=== PATIENT | male | born 1950 | race Caucasian/White ===

== ENCOUNTER 2016-12-20 14:41 | Emergency (ER) | payer MEDICARE, OTHER ==
[2016-12-20 14:47] VITALS: RESP 20
--- NOTE | 2016-12-20 15:08 | ED ---
General Adult HPI - General Chief complaint: Extremity Injury, Lower Stated complaint: Fall/Foot Pain Time Seen by Provider: 12/20/16 14:45 Source: patient, RN notes reviewed Mode of arrival: wheelchair Limitations: no limitations - History of Present Illness Initial comments: 66-year-old male presents emergency Department chief complaint of right ankle pain. Patient states she is walking down the steps and he twisted his ankle. Patient states it hurts is unable to walk on it due to the pain. Patient denies any pain. Patient states he did not hit his head. Patient states it was a simple slip and fall. Patient states she is not currently having any other symptoms. Patient denies any recent fever, chills, shortness of breath, chest pain, back pain, abdominal pain, nausea vomiting, numbness or tingling, dysuria or hematuria, constipation or diarrhea, headaches or visual changes, or any other current symptoms. - Related Data Previous Rx's Medication Instructions Recorded Hydrocodone/Acetaminophen [Reva 1 each PO Q6HR PRN #20 tab 12/20/16 5-325] Allergies Allergy/AdvReac Type Severity Reaction Status Date / Time No Known Allergies Allergy Verified 12/20/16 14:47 Review of Systems ROS Statement: Those systems with pertinent positive or pertinent negative responses have been documented in the HPI. ROS Other: All systems not noted in ROS Statement are negative. Past Medical History Past Medical History: No Reported History Additional Past Medical History / Comment(s): DENIES ANY MEDICAL PROBLEMS History of Any Multi-Drug Resistant Organisms: None Reported Past Surgical History: No Surgical Hx Reported Past Anesthesia/Blood Transfusion Reactions: No Reported Reaction Past Psychological History: No Psychological Hx Reported Smoking Status: Current every day smoker Past Alcohol Use History: Occasional Past Drug Use History: None Reported - Past Family History Father History Unknown: Yes Mother History Unknown: Yes General Exam - General Exam Comments Initial Comments: General: The patient is awake and alert, in no distress, and does not appear acutely ill. Neck: The neck is supple, there is no tenderness. Cardiovascular: There is a regular rate and rhythm. No murmur, rub or gallop is appreciated. Respiratory: Lungs are clear to auscultation, respirations are non-labored, breath sounds are equal. No wheezes, stridor, rales, or rhonchi. Musculoskeletal: Sensation intact with 2+ pulses.reduction. Frontal motion of right knee and right ankle. Patient states he has been on the lateral aspect right ankle. No proximal tib-fib tenderness. Some swelling noted. No tenderness at the right foot. Neurological: CN II-XII intact, There are no obvious motor or sensory deficits. Coordination appears grossly intact. Speech is normal. Skin: Skin is warm and dry and no rashes or lesions are noted. Psychiatric: Normal mood and affect. Limitations: no limitations Course Vital Signs 12/20/16 14:44 Temperature 98.2 F Pulse Rate 99 Respiratory 20 Rate Blood Pressure 129/76 O2 Sat by Pulse 98 Oximetry Procedures - Orthopedic Splinting/Casting Injury #1 Side: right Lower Extremity Injury Location: ankle Lower Extremity Immobilizer: stirrup splint (short leg) Medical Decision Making - Medical Decision Making 66-year-old male presents emergency chief complaint of right ankle pain. This and x-rays have been reviewed. Patient does appear to have a fracture. This and is placed in a splint and given follow-up to orthopedic. We discussed return parameters. We discussed follow-up with discussed all the patient's questions. They state Barney management plan. This and will be discharged home. - Radiology Data Radiology results: report reviewed, image reviewed Disposition Clinical Impression: Closed right ankle fracture Disposition: HOME SELF-CARE Condition: Stable Instructions: Ankle Fracture (ED) Additional Instructions: Please use medication as discussed. Please follow up with family doctor if symptoms have not improved over the next two days. Please return to the emergency room if your symptoms increase or worsen or for any other concerns. Prescriptions: Hydrocodone/Acetaminophen [Reva 5-325] 1 each PO Q6HR PRN #20 tab PRN Reason: Pain Referrals: Thony Singer MD [Primary Care Provider] - 1-2 days Candace Miranda DO [Doctor of Osteopathic Medicine] - 1-2 days Time of Disposition: 15:52
--- NOTE | 2016-12-20 15:46 | XR ---
EXAMINATION TYPE: XR ankle complete RT DATE OF EXAM: 12/20/2016 CLINICAL HISTORY: Right ankle pain after twisting type injury. TECHNIQUE: Frontal, lateral and oblique images of the right ankle and foot are obtained. COMPARISON: 01/12/2016 FINDINGS: There is no acute dislocation evident in the right ankle. Tiny chip fracture fragment is seen inferolaterally from the distal fibula. The ankle mortise appears within normal limits. The ove rlying soft tissue appears unremarkable. Achilles enthesophyte is noted in The joint spaces in the right ankle are preserved. Overlying soft tissue swelling is present. IMPRESSION: Tiny chip fracture of the distal fibula with overlying soft tissue swelling and soft tiss ue swelling about the ankle joint.
[2016-12-20] MEDS ORDERED: HYDROcodone/APAP 5-325MG 1 EACH TAB PO STA (15:47)
[2016-12-20 16:03] VITALS: BP 132/86; PULSE 88; TEMP 97.5
== END 2016-12-20 16:03 | disposition home or self-care (01) ==
LOC: EC 14:41
DX: S82.891A Other fracture of right lower leg, initial encounter for closed fracture (principal); F17.200 Nicotine dependence, unspecified, uncomplicated; X50.1XXA Overexertion from prolonged static or awkward postures, initial encounter; W01.0XXA Fall on same level from slipping, tripping and stumbling without subsequent striking against object, initial encounter
CPT/HCPCS: 29515; 99283

== ENCOUNTER → 2017-03-19 | Outpatient (CLI) | payer MEDICARE, OTHER ==
--- NOTE | 2017-03-19 09:56 | US ---
EXAMINATION TYPE: US prostate transrectal DATE OF EXAM: 03/19/2017 COMPARISON: NONE CLINICAL HISTORY: R97.2 Elevated PSA. Elevated PSA This examination was performed using the transrectal probe. EXAM MEASUREMENTS: Gland Size: 4.5 x 2.1 x 4.1cm Volume: 19.4 ml Predicted PSA: 2.33 Actual PSA (if available):5.81 Heterogeneous gland containing central zone calcifications and peripheral nodularity. IMPRESSION: Peripherally nodular and heterogenous nonenlarged prostate gland containing central zone calcifications. No discrete hypoechoic mass.
== END | disposition home or self-care (01) ==
LOC: RADUSMAIN 07:55
PROVIDERS: ATTEND Internal Medicine
DX: N42.89 Other specified disorders of prostate (principal)
CPT/HCPCS: 76872

== ENCOUNTER 2017-09-03 09:12 | Inpatient (IN) | payer MEDICARE, OTHER ==
[2017-09-03] MEDS ORDERED: LORazepam 2 MG/ML INJ IV STA ×2 (09:48→11:27)
[2017-09-03] MEDS ORDERED: THIAMINE 100 MG/ML 2 ML VIAL IVP STA (09:51)
[2017-09-03] MEDS ORDERED: FOLIC ACID 5 MG/ML 10 ML VIAL IM STA (09:51)
[2017-09-03] MEDS ORDERED: SODIUM CHLORIDE 0.9% 500 ML IV ONE (09:51)
[2017-09-03] MEDS ORDERED: SODIUM CHLORIDE 0.9% 1,000 ML IV ONE (09:51)
[2017-09-03 10:04] LABS: Glucose,Whole Blood 134 mg/dL (75-99)
[2017-09-03 10:32] LABS: Appearance,Urine Cloudy (Clear); Bacteria,Urine Occasional /hpf; Bilirubin,Urine Negative (Negative); Blood,Urine Small (Negative); Color,Urine Yellow; Glucose,Urine (UA) Negative (Negative); Granular Casts,Urine 4 /lpf (0); Hyaline Casts,Urine 29 /lpf (0-2); Ketones,Urine 1+ (Negative); Leukocyte Esterase,Urine Moderate (Negative); Mucus,Urine Rare /hpf; Nitrite,Urine Positive (Negative); Protein,Urine 2+ (Negative); RBC,Urine 6 /hpf (0-5); Specific Gravity,Urine 1.014 (1.001-1.035); Urobilinogen,Urine <2.0 mg/dL (<2.0); WBC,Urine 19 /hpf (0-5)
[2017-09-03 10:34] LABS: Alcohol 13 mg/dL; Amphetamine Screen,Urine Not Detected (NotDetected); Barbiturate Screen,Urine Not Detected (NotDetected); Benzodiazepines Screen,Urine Not Detected (NotDetected); Cocaine Screen,Urine Not Detected (NotDetected); Methadone Screen, Urine Not Detected (NotDetected); Opiate Screen,Urine Not Detected (NotDetected); Oxycodone Screen, Urine Not Detected (NotDetected); Phencyclidine Screen,Urine Not Detected (NotDetected); Tricyclic Antidepressant,Urine Not Detected (NotDetected); Urn Cannabinoid Scrn Not Detected (NotDetected)
[2017-09-03 10:46] LABS: Prothrombin Time 10.2 sec (9.0-12.0)
[2017-09-03] MEDS ORDERED: RX INFO: IV CONTRAST WAS GIVEN 1 EACH MISC MISCELLANE PRN (10:46)
--- NOTE | 2017-09-03 10:46 | CT ---
EXAMINATION TYPE: CT brain wo con DATE OF EXAM: 09/03/2017 COMPARISON: NONE HISTORY: Altered mental status CT DLP: 1098.80 mGycm Automated exposure control for dose reduction was used. FINDINGS: There is a focal wedge-shaped area of hypoattenuation involving the posterior right temporal lobe and parietal lobe. This involves both greenwood-white matter and there is slight mass effect upon the involve d gyri and sulci without volume loss, therefore findings favor acute to subacute infarct. There is no midline shift. Remainder the greenwood-white junction is unremarkable. No evidence of intracranial hemorr jose juan. Insular cortexes are preserved. Basal ganglia are well-defined. There is symmetric prominence o f the peripheral sulci and ventricular system compatible with mild age-related volume loss. Globes ap pear intact, lenses are in place and orbits are symmetric. Calvarium is intact. There is complete opa cification of the right maxillary sinus and scant mucosal thickening within the right frontal and rig ht ethmoid sinuses as well as the right sphenoid sinus. Remainder the paranasal sinuses and mastoid a ir cells are well aerated. Trace amount of cerumen is seen within the left external auditory canal. A therosclerosis is noted of the intracranial vasculature. IMPRESSION: 1. FINDINGS REPRESENTING ACUTE TO SUBACUTE INFARCT WITHIN THE RIGHT POSTERIOR TEMPORAL AND PARIETAL L OBES IN THE DISTRIBUTION OF A BRANCH VESSEL OF THE RIGHT MCA. NO EVIDENCE OF HEMORRHAGIC TRANSFORMATI ON OR ACUTE INTRACRANIAL HEMORRHAGE. MR COULD FURTHER CLARIFY STAGE OF ACUITY. IF CLINICALLY INDICATED WITH THE ORDERING ER PHYSICIAN DR HAYNES AT 10:44 AM ON 09/03/[address] DOVE. 2. COMPLETE OPACIFICATION OF THE RIGHT MAXILLARY SINUS AND OVERALL MODERATE PARANASAL SINUS DISEASE.
[2017-09-03 10:47] LABS: ALT 40 U/L (21-72); AST 64 U/L (17-59); Albumin 4.6 g/dL (3.5-5.0); Alkaline Phosphatase 56 U/L (38-126); Anion Gap 23 mmol/L; Blood Urea Nitrogen 10 mg/dL (9-20); Calcium 9.2 mg/dL (8.4-10.2); Carbon Dioxide 21 mmol/L (22-30); Chloride 103 mmol/L (98-107); Glucose 123 mg/dL (74-99); Magnesium 1.5 mg/dL (1.6-2.3); Partial Thromboplastin Time 18.6 sec (22.0-30.0); Phosphorus 3.8 mg/dL (2.5-4.5); Sodium 147 mmol/L (137-145); Total Bilirubin 0.8 mg/dL (0.2-1.3); Total Protein 7.9 g/dL (6.3-8.2)
[2017-09-03] MEDS ORDERED: levETIRAcetam IV 1,000 MG in SALINE 1 100ML.BAG IVPB STA (10:48)
[2017-09-03 10:49] LABS: Potassium 4.8 mmol/L (3.5-5.1)
[2017-09-03 10:59] LABS: Creatine Kinase MB 1.1 ng/mL (0.0-2.4); Troponin I 0.015 ng/mL (0.000-0.034)
[2017-09-03] MEDS ORDERED: cefTRIAXone IN SWFI 1,000 MG/10 ML SYRINGE IVP STA (11:13)
--- NOTE | 2017-09-03 11:29 | ED ---
Altered Mental Status HPI - General Chief Complaint: Altered Mental Status Stated Complaint: Altered mental status Time Seen by Provider: 09/03/17 09:31 Source: patient Mode of arrival: EMS Limitations: no limitations, altered mental status - History of Present Illness Initial Comments: This 67-year-old white male presents with mental status changes via EMS. He barely was walking when he relates that he felt very shaky and collapsed to the ground. He apparently was very confused. This apparently occurred while he was with his significant other but there is no one in the ER to further substantiate the story. It is unsure as to whether or not he had a seizure. He was more confused initially when he came into the ER but later was able to give some history. He related that he drinks daily but took his last drink yesterday as he is trying to stop drinking alcohol. While obtaining history he has another seizure in the ER and is further postictal and unable to answer any degree of questions. History is somewhat limited due to patient's current mental status. His son later does show up and relates that the patient does drink very heavily. He states that he is unsure how much she drinks daily but will essentially drinking as much is possibly available. He has been doing this his entire life. He states that the patient's girlfriend was with him when he had the event. They apparently were walking to the store when he is guarded shaking significantly and was confused - what sounds like a seizure. The son relates that he has never had any known seizures previously. She is not aware of him going through any alcohol withdrawal or alcohol withdrawal events. Son relates that the patient's 2 brothers and other son apparently had passed recently so he has been drinking heavily. - Related Data Home Medications Medication Instructions Recorded Confirmed Hydrocodone/Acetaminophen [[place] 1 tab PO Q6HR PRN 09/03/17 09/03/17 5-325] Allergies Allergy/AdvReac Type Severity Reaction Status Date / Time No Known Allergies Allergy Verified 09/03/17 11:02 Review of Systems ROS Statement: Those systems with pertinent positive or pertinent negative responses have been documented in the HPI. ROS Other: All systems not noted in ROS Statement are negative. Past Medical History Past Medical History: No Reported History, Unable to Obtain Additional Past Medical History / Comment(s): DENIES ANY MEDICAL PROBLEMS History of Any Multi-Drug Resistant Organisms: None Reported Past Surgical History: No Surgical Hx Reported, Unable to Obtain Past Anesthesia/Blood Transfusion Reactions: No Reported Reaction Past Psychological History: No Psychological Hx Reported Smoking Status: Current every day smoker Past Alcohol Use History: Occasional Past Drug Use History: None Reported - Past Family History Father History Unknown: Yes Mother History Unknown: Yes General Exam - General Exam Comments Initial Comments: GENERAL: The patient is well nourished and well hydrated. VITAL SIGNS: Heart rate, blood pressure, respiratory rate reviewed as recorded in nurse's notes. EYES: Pupils are round and reactive. Extraocular movements are intact. No conjunctival / lid redness or swelling. ENT: No external evidence of injury, swelling, or ecchymosis. Airway is patent. Throat is clear. NECK: Nontender. No swelling or evidence of injury. No subcutaneous emphysema. Trachea is midline. No thyroid mass. HEART: Regular rate and rhythm. Good peripheral pulses. LUNGS/CHEST: Breath sounds clear and equal bilaterally. No rales, rhonchi, or wheezes. No ecchymosis, subcutaneous emphysema, or tenderness. ABDOMEN: Abdomen soft without tenderness. No palpable masses or organomegaly. No peritoneal signs. No abdominal wall swelling or ecchymosis. EXTREMITIES: No extremity tenderness. Normal muscle tone and function. No thoracolumbar tenderness. NEUROLOGIC: Sensation is grossly intact. Cranial nerve exam reveals face is symmetrical, tongue is midline, speech is clear. Patient is slow to respond but does answer some questions. SKIN: No abrasions or ecchymosis is noted. No induration or masses noted. PSYCHIATRIC: Patient is slow to respond and has a seizure shortly after arrival and is postictal afterwards so psychiatric examination is difficult to assess. Limitations: no limitations, altered mental status Course Vital Signs 09/03/17 09/03/17 09/03/17 09:14 09:51 11:09 Temperature 97.7 F Pulse Rate 74 90 81 Respiratory 18 18 18 Rate Blood Pressure 124/73 184/81 165/80 O2 Sat by Pulse 93 L 94 L 96 Oximetry 09/03/17 12:01 Temperature Pulse Rate 76 Respiratory 18 Rate Blood Pressure 177/89 O2 Sat by Pulse 97 Oximetry Medical Decision Making - Medical Decision Making The patient was seen and examined. All diagnostics were reviewed. An IV is established and he is placed on the quality assurance monitor. He has an EKG done which shows a normal sinus rhythm with occasional PVC. There is no acute ST-T wave changes identified. The ME intervals 138, QRS duration is 104, and the QTC intervals 449. The laboratory is reviewed. The case is discussed with the radiologist and they note that he has findings on his computed tomography scan of the brain which represent a subacute to acute right posterior temporal and parietal lobe infarct. This is in the distribution of a branch vessel of the right MCA. There is no hemorrhagic transformation. They also noted complete opacification of the right maxillary sinus and overall moderate paranasal sinus disease. His ammonia level is quite high. While examining the patient, he has an approximately two-minute generalized tonic clonic seizure and seems quite postictal afterwards. The seizure does stop with 2 mg of Ativan intravenously. He also was incontinent of urine. A straight catheterization was done and this does show evidence of urinary tract infection. He receives 1 g Rocephin intravenously. Due to his seizure being either related to alcohol withdrawal versus related to a CVA, he is started on Keppra intravenously as well. A CT a of the head and neck is ordered. It is quite difficult to perform any degree of stroke scale examination on him due to his altered mental status. Nevertheless, initially he is moving all extremities without any difficulty. He certainly had strength intact in his quite vigorous tonic-clonic seizures. His speech was clear earlier. The patient had the CT a of the head and neck. There is some motion artifact in the neck region but it otherwise did not show any focal occlusion. The previously noted possible stroke findings on the noncontrasted computed tomography scan of the brain are less well appreciated on this examination. It is felt as though patient's current symptomatology is very consistent with an alcohol withdrawal seizure. His alcohol level is only 13 at this time. It is also felt as though he has some hyperammonia anemia which certainly could be causing some degree of mental status changes. It is felt as though he would benefit from admission to the hospital for further treatment and neurology consultation. Case will be discussed with internal medicine shortly. - Lab Data Result diagrams: 09/03/17 11:10 09/03/17 09:50 Lab Results 09/03/17 09/03/17 09/03/17 Range/Units 09:50 09:50 09:50 WBC (3.8-10.6) k/uL RBC (4.30-5.90) m/uL Hgb (13.0-17.5) gm/dL Hct (39.0-53.0) % MCV (80.0-100.0) fL MCH (25.0-35.0) pg MCHC (31.0-37.0) g/dL RDW (11.5-15.5) % Plt Count (150-450) k/uL Neutrophils % % Lymphocytes % % Monocytes % % Eosinophils % % Basophils % % Neutrophils # (1.3-7.7) k/uL Lymphocytes # (1.0-4.8) k/uL Monocytes # (0-1.0) k/uL Eosinophils # (0-0.7) k/uL Basophils # (0-0.2) k/uL PT (9.0-12.0) sec INR (<1.2) APTT (22.0-30.0) sec Sodium 147 H (137-145) mmol/L Potassium 4.8 (3.5-5.1) mmol/L Chloride 103 (98-107) mmol/L Carbon Dioxide 21 L (22-30) mmol/L Anion Gap 23 mmol/L BUN 10 (9-20) mg/dL Creatinine 0.77 (0.66-1.25) mg/dL Est GFR (CKD-EPI)AfAm >90 (>60 ml/min/1.73 sqM) Est GFR (CKD-EPI)NonAf >90 (>60 ml/min/1.73 sqM) Glucose 123 H (74-99) mg/dL POC Glucose (mg/dL) (75-99) mg/dL POC Glu Lawn Care Specialist ID Calcium 9.2 (8.4-10.2) mg/dL Phosphorus 3.8 (2.5-4.5) mg/dL Magnesium 1.5 L (1.6-2.3) mg/dL Total Bilirubin 0.8 (0.2-1.3) mg/dL AST 64 H (17-59) U/L ALT 40 (21-72) U/L Alkaline Phosphatase 56 (38-126) U/L Ammonia (<30) umol/L Total Creatine Kinase 88 (55-170) U/L CK-MB (CK-2) 1.1 (0.0-2.4) ng/mL CK-MB (CK-2) Rel Index 1.3 Troponin I 0.015 (0.000-0.034) ng/mL Total Protein 7.9 (6.3-8.2) g/dL Albumin 4.6 (3.5-5.0) g/dL Urine Color Yellow Urine Appearance Cloudy (Clear) Urine pH 6.0 (5.0-8.0) Ur Specific Flora 1.014 (1.001-1.035) Urine Protein 2+ H (Negative) Urine Glucose (UA) Negative (Negative) Urine Ketones 1+ H (Negative) Urine Blood Small H (Negative) Urine Nitrite Positive (Negative) Urine Bilirubin Negative (Negative) Urine Urobilinogen <2.0 (<2.0) mg/dL Ur Leukocyte Esterase Moderate H (Negative) Urine RBC 6 H (0-5) /hpf Urine WBC 19 H (0-5) /hpf Urine Bacteria Occasional H (None) /hpf Hyaline Casts 29 H (0-2) /lpf Granular Casts 4 (0) /lpf Urine Mucus Rare H (None) /hpf Urine Opiates Screen Not Detected (NotDetected) Ur Oxycodone Screen Not Detected (NotDetected) Urine Methadone Screen Not Detected (NotDetected) Ur Propoxyphene Screen Not Detected (NotDetected) Ur Barbiturates Screen Not Detected (NotDetected) U Tricyclic Antidepress Not Detected (NotDetected) Ur Phencyclidine Scrn Not Detected (NotDetected) Ur Amphetamines Screen Not Detected (NotDetected) U Methamphetamines Scrn Not Detected (NotDetected) U Benzodiazepines Scrn Not Detected (NotDetected) Urine Cocaine Screen Not Detected (NotDetected) U Marijuana (THC) Screen Not Detected (NotDetected) Serum Alcohol 13 mg/dL 09/03/17 09/03/17 09/03/17 Range/Units 09:50 09:50 09:59 WBC (3.8-10.6) k/uL RBC (4.30-5.90) m/uL Hgb (13.0-17.5) gm/dL Hct (39.0-53.0) % MCV (80.0-100.0) fL MCH (25.0-35.0) pg MCHC (31.0-37.0) g/dL RDW (11.5-15.5) % Plt Count (150-450) k/uL Neutrophils % % Lymphocytes % % Monocytes % % Eosinophils % % Basophils % % Neutrophils # (1.3-7.7) k/uL Lymphocytes # (1.0-4.8) k/uL Monocytes # (0-1.0) k/uL Eosinophils # (0-0.7) k/uL Basophils # (0-0.2) k/uL PT 10.2 (9.0-12.0) sec INR 1.0 (<1.2) APTT 18.6 L (22.0-30.0) sec Sodium (137-145) mmol/L Potassium (3.5-5.1) mmol/L Chloride (98-107) mmol/L Carbon Dioxide (22-30) mmol/L Anion Gap mmol/L BUN (9-20) mg/dL Creatinine (0.66-1.25) mg/dL Est GFR (CKD-EPI)AfAm (>60 ml/min/1.73 sqM) Est GFR (CKD-EPI)NonAf (>60 ml/min/1.73 sqM) Glucose (74-99) mg/dL POC Glucose (mg/dL) 134 H (75-99) mg/dL POC Glu Lawn Care Specialist ID Alejandro Reed Calcium (8.4-10.2) mg/dL Phosphorus (2.5-4.5) mg/dL Magnesium (1.6-2.3) mg/dL Total Bilirubin (0.2-1.3) mg/dL AST (17-59) U/L ALT (21-72) U/L Alkaline Phosphatase (38-126) U/L Ammonia 59 H (<30) umol/L Total Creatine Kinase (55-170) U/L CK-MB (CK-2) (0.0-2.4) ng/mL CK-MB (CK-2) Rel Index Troponin I (0.000-0.034) ng/mL Total Protein (6.3-8.2) g/dL Albumin (3.5-5.0) g/dL Urine Color Urine Appearance (Clear) Urine pH (5.0-8.0) Ur Specific Flora (1.001-1.035) Urine Protein (Negative) Urine Glucose (UA) (Negative) Urine Ketones (Negative) Urine Blood (Negative) Urine Nitrite (Negative) Urine Bilirubin (Negative) Urine Urobilinogen (<2.0) mg/dL Ur Leukocyte Esterase (Negative) Urine RBC (0-5) /hpf Urine WBC (0-5) /hpf Urine Bacteria (None) /hpf Hyaline Casts (0-2) /lpf Granular Casts (0) /lpf Urine Mucus (None) /hpf Urine Opiates Screen (NotDetected) Ur Oxycodone Screen (NotDetected) Urine Methadone Screen (NotDetected) Ur Propoxyphene Screen (NotDetected) Ur Barbiturates Screen (NotDetected) U Tricyclic Antidepress (NotDetected) Ur Phencyclidine Scrn (NotDetected) Ur Amphetamines Screen (NotDetected) U Methamphetamines Scrn (NotDetected) U Benzodiazepines Scrn (NotDetected) Urine Cocaine Screen (NotDetected) U Marijuana (THC) Screen (NotDetected) Serum Alcohol mg/dL 09/03/17 Range/Units 11:10 WBC 12.6 H (3.8-10.6) k/uL RBC 4.42 (4.30-5.90) m/uL Hgb 13.6 (13.0-17.5) gm/dL Hct 41.0 (39.0-53.0) % MCV 92.6 (80.0-100.0) fL MCH 30.9 (25.0-35.0) pg MCHC 33.3 (31.0-37.0) g/dL RDW 13.7 (11.5-15.5) % Plt Count 221 (150-450) k/uL Neutrophils % 93 % Lymphocytes % 3 % Monocytes % 4 % Eosinophils % 0 % Basophils % 0 % Neutrophils # 11.6 H (1.3-7.7) k/uL Lymphocytes # 0.4 L (1.0-4.8) k/uL Monocytes # 0.4 (0-1.0) k/uL Eosinophils # 0.0 (0-0.7) k/uL Basophils # 0.0 (0-0.2) k/uL PT (9.0-12.0) sec INR (<1.2) APTT (22.0-30.0) sec Sodium (137-145) mmol/L Potassium (3.5-5.1) mmol/L Chloride (98-107) mmol/L Carbon Dioxide (22-30) mmol/L Anion Gap mmol/L BUN (9-20) mg/dL Creatinine (0.66-1.25) mg/dL Est GFR (CKD-EPI)AfAm (>60 ml/min/1.73 sqM) Est GFR (CKD-EPI)NonAf (>60 ml/min/1.73 sqM) Glucose (74-99) mg/dL POC Glucose (mg/dL) (75-99) mg/dL POC Glu Lawn Care Specialist ID Calcium (8.4-10.2) mg/dL Phosphorus (2.5-4.5) mg/dL Magnesium (1.6-2.3) mg/dL Total Bilirubin (0.2-1.3) mg/dL AST (17-59) U/L ALT (21-72) U/L Alkaline Phosphatase (38-126) U/L Ammonia (<30) umol/L Total Creatine Kinase (55-170) U/L CK-MB (CK-2) (0.0-2.4) ng/mL CK-MB (CK-2) Rel Index Troponin I (0.000-0.034) ng/mL Total Protein (6.3-8.2) g/dL Albumin (3.5-5.0) g/dL Urine Color Urine Appearance (Clear) Urine pH (5.0-8.0) Ur Specific Flora (1.001-1.035) Urine Protein (Negative) Urine Glucose (UA) (Negative) Urine Ketones (Negative) Urine Blood (Negative) Urine Nitrite (Negative) Urine Bilirubin (Negative) Urine Urobilinogen (<2.0) mg/dL Ur Leukocyte Esterase (Negative) Urine RBC (0-5) /hpf Urine WBC (0-5) /hpf Urine Bacteria (None) /hpf Hyaline Casts (0-2) /lpf Granular Casts (0) /lpf Urine Mucus (None) /hpf Urine Opiates Screen (NotDetected) Ur Oxycodone Screen (NotDetected) Urine Methadone Screen (NotDetected) Ur Propoxyphene Screen (NotDetected) Ur Barbiturates Screen (NotDetected) U Tricyclic Antidepress (NotDetected) Ur Phencyclidine Scrn (NotDetected) Ur Amphetamines Screen (NotDetected) U Methamphetamines Scrn (NotDetected) U Benzodiazepines Scrn (NotDetected) Urine Cocaine Screen (NotDetected) U Marijuana (THC) Screen (NotDetected) Serum Alcohol mg/dL Disposition Clinical Impression: Altered mental status, Hepatic encephalopathy, Alcohol withdrawal, Delirium tremens, Seizure, Hypertension, Hyperammonemia, Alcohol abuse, Urinary tract infection Disposition: ADMITTED IP TO THIS [facility] Condition: Fair Time of Disposition: 13:00 Decision Date: 09/03/17 Decision Time: 13:00
--- NOTE | 2017-09-03 12:05 | XR ---
EXAMINATION TYPE: XR chest 1V DATE OF EXAM: 09/03/2017 HISTORY: Shortness of breath. COMPARISON: 05/02/2015 TECHNIQUE: Single view of the chest is submitted. FINDINGS: Demonstrated are scattered senescent parenchymal change. There is no evidence for focal infiltrate. The heart is stable. Pulmonary venous engorgement without overt failure. Hilar and mediastinal structures are within normal limits. Degenerative changes are seen of the dorsal spine. Chronic left-sided rib deformities noted. IMPRESSION: 1. Chronic changes without evidence for acute pulmonary disease.
[2017-09-03 12:15] LABS: Basophils % (A) 0 %; Eosinophils % (A) 0 %; HGB 13.6 gm/dL (13.0-17.5); Lymphocytes # (A) 0.4 k/uL (1.0-4.8); Lymphocytes % (A) 3 %; MCH 30.9 pg (25.0-35.0); MCHC 33.3 g/dL (31.0-37.0); MCV 92.6 fL (80.0-100.0); Mean Platelet Volume 7.3; Monocytes # (A) 0.4 k/uL (0-1.0); Monocytes % (A) 4 %; Neutrophils # (A) 11.6 k/uL (1.3-7.7); Neutrophils % (A) 93 %; Platelet Count 221 k/uL (150-450); RBC 4.42 m/uL (4.30-5.90); RDW 13.7 % (11.5-15.5); WBC 12.6 k/uL (3.8-10.6)
--- NOTE | 2017-09-03 12:33 | CT ---
EXAMINATION TYPE: CT angio head neck DATE OF EXAM: 09/03/2017 HISTORY: altered mental status COMPARISON: CT brain dictation of the same date. CT DLP: 508 mGycm. Automated Exposure Control for Dose Reduction was Utilized. TECHNIQUE: CTA scan of the neck is performed with IV Contrast, patient injected with 65 mL of Isovue 370, axial images are obtained, coronal and sagittal reformatted images are reviewed. Three-D recons tructed images are created on an independent workstation and reviewed. FINDINGS: Carotid/Vascular Structures: There is nonhemodynamically significant stenosis of the left subclavian proximally. Scant amount of atherosclerosis is also seen within the common carotid arteries with no h emodynamically significant stenosis. Approximately 50% stenosis is seen at the left common carotid ar dago. Degree of stenosis of the right common carotid artery is nondiagnostic due to extensive patient motion. Level of the upper cervical spine vasculature is also nondiagnostic due to extensive patient motion. Vertebral arteries are diminutive but codominant. Posterior cerebellar arteries are also diminutive b ut patent. [place] appears patent and intact. No arterial venous malformation. Visualized po rtions of the brain parenchyma are discussed on the CT abdomen dictation the same day including paran magnolia sinus disease. IMPRESSION: Upper cervical spine level is nondiagnostic secondary to extensive patient motion. Other mijares, no hemodynamically significant stenosis or focal occlusion of the remainder of the head or neck . Findings of right-sided temporal parietal hypoattenuation of the greenwood-white matter junction favorin g acute to subacute infarct are less well appreciated on this examination given technique.
[2017-09-03] MEDS ORDERED: ACETAMINOPHEN TAB 325 MG TAB PO PRN (13:01)
[2017-09-03] MEDS ORDERED: ONDANSETRON 4 MG/2 ML VIAL IVP PRN (13:01)
[2017-09-03] MEDS ORDERED: NALOXONE 0.4 MG/ML 1 ML VIAL IV PRN (13:01)
[2017-09-03] MEDS ORDERED: THIAMINE 100 MG/ML 2 ML VIAL IM STA (13:07)
[2017-09-03] MEDS ORDERED: LORazepam 2 MG/ML INJ IV PRN ×2 (13:07)
[2017-09-03] MEDS ORDERED: LACTULOSE 200 GM/300 ML (FROM 1/2 GAL JUG) RECTAL ONE (15:00)
--- NOTE | 2017-09-03 16:56 | P.CNPUL ---
<NancyShu aj - Last Filed: 09/03/17 16:31> History of Present Illness Consult date: 09/03/17 Requesting physician: Mitch Costa Reason for consult: dyspnea, other (Critical care management) Chief complaint: Altered mental status History of present illness: This is a 67-year-old gentleman with a known history of alcohol abuse, previous suicidal ideations, severe depression, recent diagnosis of perianal abscess in June 2017, chronic and ongoing tobacco dependence. He follows with Dr. Singer is his primary care physician. He was brought into the emergency room earlier this morning with altered mental status. He had been with a significant other walking to a store and he felt very shaky and collapsed to the ground. It was unclear if there was seizure activity at that time or not. He was able to state he was drinking quite heavily but has not drank in 24 hours and was trying to stop. After arriving to the emergency room he did have a seizure and was postictal. His son did not know coming to the emergency room and states that he does drink quite heavily on a daily basis. He also stated he is not known as father to have any seizures in the past. EtOH level XIII. Urine drug screen is negative. Computed tomography scan of the brain revealed acute to subacute infarct within the right posterior temporal and parietal lobes of the right MCA. There is no evidence of hemorrhagic transformation or acute intracranial hemorrhage. There was noted opacification in the right maxillary sinus and overall paranasal sinus disease. CT angiogram of the head and neck revealed no hemodynamically significant stenosis or focal occlusion. Findings of right-sided temporoparietal hypoattenuation in the greenwood matter junction favoring acute to subacute infarct are less well appreciated on this exam given the technique. The patient is seen in consultation today in the emergency room. He is currently awake and alert. He knows that he is in the hospital. Somewhat of a poor historian. He denies any significant pain or headache. No shortness of breath, cough or congestion. He is moving all 4 extremities and is currently strong equally. Pupils are equal and reactive to light. Chest x- ray reveals evidence of chronic changes but no acute pulmonary process. He now has a T-max of 101.3. He has been hemodynamically stable, somewhat hypertensive. He is maintaining O2 saturations in the 90s on 4 L/m per nasal cannula. White count 12.6. Hemoglobin 13.6. Sodium 147. Bicarb 21. Creatinine 0.77. AST 64. Ammonia 59. Review of Systems ROS unobtainable: due to mental status Past Medical History Past Medical History: No Reported History, Unable to Obtain Additional Past Medical History / Comment(s): ETOH abuse with past withdrawal DTs and seizures, R foot fracture 1 year ago-not healing properly, [facility] Dr. Singer office visit note, pt recently seen 07/12/17 with perianal abscess. History of Any Multi-Drug Resistant Organisms: None Reported Past Surgical History: No Surgical Hx Reported, Unable to Obtain Additional Past Surgical History / Comment(s): Pt states he has never had surgery but his son, Alexandre believes he has recently had a colonoscopy. Past Anesthesia/Blood Transfusion Reactions: No Reported Reaction Smoking Status: Current every day smoker - Past Family History Father History Unknown: Yes Family Medical History: Diabetes Mellitus Additional Family Medical History / Comment(s): Father was an alcoholic. Mother History Unknown: Yes Family Medical History: Diabetes Mellitus Medications and Allergies Home Medications Medication Instructions Recorded Confirmed Type Hydrocodone/Acetaminophen [[place] 1 tab PO Q6HR PRN 09/03/17 09/03/17 History 5-325] Allergies Allergy/AdvReac Type Severity Reaction Status Date / Time No Known Allergies Allergy Verified 09/03/17 11:02 Physical Exam Vitals: Vital Signs Temp Pulse Resp BP Pulse Ox 09/03/17 16:03 98.0 F 76 18 158/90 95 09/03/17 15:30 71 16 169/77 95 09/03/17 15:00 74 18 166/91 95 09/03/17 14:44 98.0 F 78 16 172/91 96 09/03/17 13:30 77 20 168/80 95 09/03/17 12:01 76 18 177/89 97 09/03/17 11:45 88 18 166/75 95 09/03/17 11:30 74 18 154/82 95 09/03/17 11:15 80 16 153/86 96 09/03/17 11:00 81 18 165/80 96 09/03/17 10:45 88 16 144/78 95 09/03/17 10:30 95 16 148/81 96 09/03/17 10:25 92 16 145/84 96 09/03/17 09:55 96 18 159/71 96 09/03/17 09:51 90 18 184/81 94 L 09/03/17 09:14 97.7 F 74 18 124/73 93 L Intake and Output 09/03/17 09/03/17 09/03/17 06:59 14:59 22:59 Other: Weight 86.183 kg GENERAL EXAM: Disheveled. Arousable. HEAD: Normocephalic. EYES: Normal reaction of pupils, equal size. NOSE: Clear with pink turbinates. THROAT: No erythema or exudates. NECK: No masses, no JVD. CHEST: No chest wall deformity. LUNGS: Equal air entry with no crackles, wheeze, rhonchi or dullness. CVS: S1 and S2 normal with no audible murmur, regular rhythm. ABDOMEN: No hepatosplenomegaly, normal bowel sounds, no guarding or rigidity. SPINE: No scoliosis or deformity SKIN: No rashes CENTRAL NERVOUS SYSTEM: No focal deficits, tone is normal in all 4 extremities. EXTREMITIES: There is no peripheral edema. No clubbing, no cyanosis. Peripheral pulses are intact. Results - Laboratory Findings CBC and BMP: 09/03/17 11:10 09/03/17 09:50 PT/INR, D-dimer PT 10.2 sec (9.0-12.0) 09/03/17 09:50 INR 1.0 (<1.2) 09/03/17 09:50 Abnormal lab findings: Abnormal Labs 09/03/17 09/03/17 09/03/17 09:50 09:50 09:50 WBC Neutrophils # Lymphocytes # APTT 18.6 L Sodium 147 H Carbon Dioxide 21 L Glucose 123 H POC Glucose (mg/dL) Magnesium 1.5 L AST 64 H Ammonia Urine Protein 2+ H Urine Ketones 1+ H Urine Blood Small H Ur Leukocyte Esterase Moderate H Urine RBC 6 H Urine WBC 19 H Urine Bacteria Occasional H Hyaline Casts 29 H Urine Mucus Rare H 09/03/17 09/03/17 09/03/17 09:50 09:59 11:10 WBC 12.6 H Neutrophils # 11.6 H Lymphocytes # 0.4 L APTT Sodium Carbon Dioxide Glucose POC Glucose (mg/dL) 134 H Magnesium AST Ammonia 59 H Urine Protein Urine Ketones Urine Blood Ur Leukocyte Esterase Urine RBC Urine WBC Urine Bacteria Hyaline Casts Urine Mucus - Diagnostic Findings Chest x-ray: image reviewed Assessment and Plan Assessment: Impression: #1 Altered mental status secondary to alcohol withdrawal. The patient reportedly had not drank in 24 hours and he drinks quite significantly daily. #2 Seizures secondary to alcohol withdrawal. #3 History of past alcohol withdrawal with delirium tremens and seizures. #4 Chronic and ongoing tobacco dependence. #5 Recent diagnosis of perianal abscess in June 2017. #6 History of severe depression with suicidal ideations. #7 Hypertension. #8 Acute hypoxic respiratory failure secondary to chronic tobacco dependence and suspected chronic obstructive pulmonary disease, possible aspiration with febrile illness. Plan: The patient was seen and evaluated by Dr. Patel. Chest x-ray, CAT scans and labs were all reviewed. The patient will be admitted to the intensive care unit for closer observation. Seizure precautions in place. CIWA precautions in place. Multivitamins and thiamine initiated. We'll add Zosyn. Lovenox for DVT prophylaxis. Protonix for GI prophylaxis. We will repeat a chest x-ray in the a.m. We will continue to follow and make further recommendations based on his clinical status. I, the cosigning physician, performed a history & physical examination of the patient. Lungs sounds are clear, diminished. Maintaining good O2 saturations in the 90s on 3 L/m per nasal cannula. I discussed the assessment and plan of care with my nurse practitioner, Shu Cruz. I attest to the above note as dictated by her. Time with Patient: Greater than 30 <Brianna Patel - Last Filed: 09/04/17 09:51> Physical Exam Vitals: Vital Signs Temp Pulse Resp BP Pulse Ox 09/04/17 08:00 98.3 F 70 18 143/94 95 09/04/17 07:50 70 09/04/17 07:34 72 09/04/17 04:00 25 H 09/04/17 02:00 66 25 H 141/94 84 L 09/04/17 01:00 71 16 151/88 95 09/04/17 00:00 98.0 F 62 25 H 138/82 92 L 09/03/17 23:00 68 22 150/81 95 09/03/17 22:00 59 L 13 152/91 96 09/03/17 21:00 81 41 H 152/91 96 09/03/17 20:12 72 09/03/17 20:09 68 09/03/17 20:00 75 20 156/90 94 L 09/03/17 19:00 77 19 166/92 98 09/03/17 18:37 68 21 158/82 96 09/03/17 18:00 76 22 158/82 97 09/03/17 17:30 100.0 F H 77 23 141/78 96 09/03/17 16:42 101.3 F H 67 17 145/89 96 09/03/17 16:03 98.0 F 76 18 158/90 95 09/03/17 15:30 71 16 169/77 95 09/03/17 15:00 74 18 166/91 95 09/03/17 14:44 98.0 F 78 16 172/91 96 09/03/17 13:30 77 20 168/80 95 09/03/17 12:01 76 18 177/89 97 09/03/17 11:45 88 18 166/75 95 09/03/17 11:30 74 18 154/82 95 09/03/17 11:15 80 16 153/86 96 09/03/17 11:00 81 18 165/80 96 09/03/17 10:45 88 16 144/78 95 09/03/17 10:30 95 16 148/81 96 09/03/17 10:25 92 16 145/84 96 09/03/17 09:55 96 18 159/71 96 09/03/17 09:51 90 18 184/81 94 L Intake and Output 09/03/17 09/04/17 09/04/17 22:59 06:59 14:59 Intake Total 100 400 850 Output Total 400 Balance 100 400 450 Intake: IV 100 400 800 Sodium Chloride 0.9% 1, 100 400 800 000 ml @ 100 mls/hr IV . Q10H ONE Rx#:[id number] Intake, IV Titration 50 Amount Piperacillin-Tazobactam 3 50 .375 gm In Dextrose/Water 1 50ml.bag @ 12.5 mls/hr IVPB Q8HR [facility] Rx#: [id number] Output: Urine 400 Other: Voiding Method Urinal Urinal # Voids 1 1 # Bowel Movements 1 Weight 87.2 kg Results - Laboratory Findings CBC and BMP: 09/04/17 04:25 09/04/17 04:25 PT/INR, D-dimer PT 10.2 sec (9.0-12.0) 09/03/17 09:50 INR 1.0 (<1.2) 09/03/17 09:50 Abnormal lab findings: Abnormal Labs 09/03/17 09/03/17 09/03/17 09:50 09:50 09:50 WBC Neutrophils # Lymphocytes # APTT 18.6 L Sodium 147 H Carbon Dioxide 21 L Glucose 123 H POC Glucose (mg/dL) Magnesium 1.5 L AST 64 H Ammonia Urine Protein 2+ H Urine Ketones 1+ H Urine Blood Small H Ur Leukocyte Esterase Moderate H Urine RBC 6 H Urine WBC 19 H Urine Bacteria Occasional H Hyaline Casts 29 H Urine Mucus Rare H 09/03/17 09/03/17 09/03/17 09:50 09:59 11:10 WBC 12.6 H Neutrophils # 11.6 H Lymphocytes # 0.4 L APTT Sodium Carbon Dioxide Glucose POC Glucose (mg/dL) 134 H Magnesium AST Ammonia 59 H Urine Protein Urine Ketones Urine Blood Ur Leukocyte Esterase Urine RBC Urine WBC Urine Bacteria Hyaline Casts Urine Mucus 09/03/17 09/04/17 17:25 04:25 WBC Neutrophils # Lymphocytes # APTT Sodium Carbon Dioxide Glucose 104 H POC Glucose (mg/dL) 107 H Magnesium AST Ammonia Urine Protein Urine Ketones Urine Blood Ur Leukocyte Esterase Urine RBC Urine WBC Urine Bacteria Hyaline Casts Urine Mucus Assessment and Plan Assessment: The joint evaluation that was done along with a nurse practitioner. I saw the patient emergency department. I attest of the above-mentioned information. I reviewed the CAT scan of the chest and it showed evidence of subacute infarct along the right MCA distribution. No evidence of any hemorrhagic transformation. We will monitor neuro status. Watch for seizure activity. Proceed with MRI of the brain. The consultation will be also added.
[2017-09-03 17:27] LABS: Glucose,Whole Blood 107 mg/dL (75-99)
[2017-09-03] MEDS ORDERED: Potassium Replacement Protocol 1 EACH MISC MISCELLANE PRN (18:22)
[2017-09-03] MEDS ORDERED: Magnesium Replacement Protocol 1 EACH MISC MISCELLANE PRN (18:22)
--- NOTE | 2017-09-03 18:28 | P.CONS ---
History of Present Illness - Reason for Consult Consult date: 09/03/17 Seizure - Chief Complaint Seizure - History of Present Illness This is 67-year-old white male being evaluated by the neurology service for seizures. He presented to the [facility] emergency room quite confused he is a heavy daily drinker and said that he hadn't had a drink in a day or 2. He thought maybe he had a seizure at his home. But he did have a witnessed seizure in the ER with a postictal period. Both he and his son confirmed that he does not have a history of seizures. He was given some Ativan in the ER and started on IV Keppra at 1000 mg every 12 hours. At the time my exam he is just being transferred to his ICU bed. He is still obtunded but neurologically is better than at presentation in the ER. His CT in the ER did show some possible evidence of right posterior temporal and parietal ischemia. A CTA was also done. It showed no hemodynamically significant stenosis in the head or neck, but the area seen in the CT was not necessarily redemonstrated in the CTA. However, the CTA was limited by motion. His ammonia levels were elevated. His urine tox screen was negative. He in a mildly elevated white count at 12.6. Review of Systems Constitutional: Reports as per HPI Past Medical History Past Medical History: No Reported History, Unable to Obtain Additional Past Medical History / Comment(s): ETOH abuse with past withdrawal DTs and seizures, R foot fracture 1 year ago-not healing properly, [facility] Dr. Singer office visit note, pt recently seen 07/12/17 with perianal abscess. History of Any Multi-Drug Resistant Organisms: None Reported Past Surgical History: No Surgical Hx Reported, Unable to Obtain Additional Past Surgical History / Comment(s): Pt states he has never had surgery but his son, Alexandre believes he has recently had a colonoscopy. Past Anesthesia/Blood Transfusion Reactions: No Reported Reaction Smoking Status: Current every day smoker - Past Family History Father History Unknown: Yes Family Medical History: Diabetes Mellitus Additional Family Medical History / Comment(s): Father was an alcoholic. Mother History Unknown: Yes Family Medical History: Diabetes Mellitus Medications and Allergies Home Medications Medication Instructions Recorded Confirmed Type Hydrocodone/Acetaminophen [[place] 1 tab PO Q6HR PRN 09/03/17 09/03/17 History 5-325] Allergies Allergy/AdvReac Type Severity Reaction Status Date / Time No Known Allergies Allergy Verified 09/03/17 11:02 Physical Exam Vitals: Vital Signs Temp Pulse Resp BP Pulse Ox 09/03/17 16:42 101.3 F H 67 17 145/89 96 09/03/17 16:03 98.0 F 76 18 158/90 95 09/03/17 15:30 71 16 169/77 95 09/03/17 15:00 74 18 166/91 95 09/03/17 14:44 98.0 F 78 16 172/91 96 09/03/17 13:30 77 20 168/80 95 09/03/17 12:01 76 18 177/89 97 09/03/17 11:45 88 18 166/75 95 09/03/17 11:30 74 18 154/82 95 09/03/17 11:15 80 16 153/86 96 09/03/17 11:00 81 18 165/80 96 09/03/17 10:45 88 16 144/78 95 09/03/17 10:30 95 16 148/81 96 09/03/17 10:25 92 16 145/84 96 09/03/17 09:55 96 18 159/71 96 09/03/17 09:51 90 18 184/81 94 L 09/03/17 09:14 97.7 F 74 18 124/73 93 L Intake and Output 09/03/17 09/03/17 09/03/17 06:59 14:59 22:59 Other: Weight 86.183 kg - Constitutional General appearance: average body habitus, disheveled, no acute distress - EENT Eyes: no abnormal pupil, EOMI, PERRLA, no ptosis ENT: hearing grossly normal - Neck Neck: normal ROM, no rigidity - Respiratory Respiratory: negative: prolonged expiration, prolonged inspiration - Cardiovascular Rhythm: regular - Gastrointestinal General gastrointestinal: no distended, no tenderness - Neurologic The patient is drowsy but easily awoken. He is oriented to person place and partially to time. Speech is a little slurred. Language is normal. There is no facial asymmetry. Strength is full in bilateral upper and lower extremities. There is no sensory deficit. No tremors or seizure-like activities are seen. Results CBC & Chem 7: 09/03/17 11:10 05/11/18 09:50 Labs: Abnormal Lab Results - Last 24 Hours (Table) 09/03/17 09/03/17 09/03/17 Range/Units 09:50 09:50 09:50 WBC (3.8-10.6) k/uL Neutrophils # (1.3-7.7) k/uL Lymphocytes # (1.0-4.8) k/uL APTT 18.6 L (22.0-30.0) sec Sodium 147 H (137-145) mmol/L Carbon Dioxide 21 L (22-30) mmol/L Glucose 123 H (74-99) mg/dL POC Glucose (mg/dL) (75-99) mg/dL Magnesium 1.5 L (1.6-2.3) mg/dL AST 64 H (17-59) U/L Ammonia (<30) umol/L Urine Protein 2+ H (Negative) Urine Ketones 1+ H (Negative) Urine Blood Small H (Negative) Ur Leukocyte Esterase Moderate H (Negative) Urine RBC 6 H (0-5) /hpf Urine WBC 19 H (0-5) /hpf Urine Bacteria Occasional H (None) /hpf Hyaline Casts 29 H (0-2) /lpf Urine Mucus Rare H (None) /hpf 09/03/17 09/03/17 09/03/17 Range/Units 09:50 09:59 11:10 WBC 12.6 H (3.8-10.6) k/uL Neutrophils # 11.6 H (1.3-7.7) k/uL Lymphocytes # 0.4 L (1.0-4.8) k/uL APTT (22.0-30.0) sec Sodium (137-145) mmol/L Carbon Dioxide (22-30) mmol/L Glucose (74-99) mg/dL POC Glucose (mg/dL) 134 H (75-99) mg/dL Magnesium (1.6-2.3) mg/dL AST (17-59) U/L Ammonia 59 H (<30) umol/L Urine Protein (Negative) Urine Ketones (Negative) Urine Blood (Negative) Ur Leukocyte Esterase (Negative) Urine RBC (0-5) /hpf Urine WBC (0-5) /hpf Urine Bacteria (None) /hpf Hyaline Casts (0-2) /lpf Urine Mucus (None) /hpf 09/03/17 Range/Units 17:25 WBC (3.8-10.6) k/uL Neutrophils # (1.3-7.7) k/uL Lymphocytes # (1.0-4.8) k/uL APTT (22.0-30.0) sec Sodium (137-145) mmol/L Carbon Dioxide (22-30) mmol/L Glucose (74-99) mg/dL POC Glucose (mg/dL) 107 H (75-99) mg/dL Magnesium (1.6-2.3) mg/dL AST (17-59) U/L Ammonia (<30) umol/L Urine Protein (Negative) Urine Ketones (Negative) Urine Blood (Negative) Ur Leukocyte Esterase (Negative) Urine RBC (0-5) /hpf Urine WBC (0-5) /hpf Urine Bacteria (None) /hpf Hyaline Casts (0-2) /lpf Urine Mucus (None) /hpf Assessment and Plan (1) Abnormal CT of brain Current Visit: Yes Status: Acute Code(s): R90.89 - OTH ABNORMAL FINDINGS ON DIAGNOSTIC IMAGING OF CNSL SNOMED Code(s): 520784563 (2) Alcohol abuse Current Visit: Yes Status: Chronic Code(s): F10.10 - ALCOHOL ABUSE, UNCOMPLICATED SNOMED Code(s): 97071788 (3) Alcohol withdrawal Current Visit: Yes Status: Acute Code(s): F10.239 - ALCOHOL DEPENDENCE WITH WITHDRAWAL, UNSPECIFIED SNOMED Code(s): 582357334 (4) Altered mental status Current Visit: Yes Status: Acute Code(s): R41.82 - ALTERED MENTAL STATUS, UNSPECIFIED SNOMED Code(s): 111461782 (5) Delirium tremens Current Visit: Yes Status: Acute Code(s): F10.231 - ALCOHOL DEPENDENCE WITH WITHDRAWAL DELIRIUM SNOMED Code(s): 6118566 (6) Hyperammonemia Current Visit: Yes Status: Acute Code(s): E72.20 - DISORDER OF UREA CYCLE METABOLISM, UNSPECIFIED SNOMED Code(s): 2162932 (7) Hypertension Current Visit: Yes Status: Chronic Code(s): I10 - ESSENTIAL (PRIMARY) HYPERTENSION SNOMED Code(s): 63253360 (8) Seizure Current Visit: Yes Status: Acute Code(s): R56.9 - UNSPECIFIED CONVULSIONS SNOMED Code(s): 55600163 Plan: This patient's altered mental status is likely from metabolic encephalopathy from elevated ammonia levels and alcohol withdrawals. However, he did have an abnormal initial CT. The CTA did not seem to redemonstrate areas found on the CT. For that reason and for his seizure activity I have ordered an EEG and an MRI of the brain. He was likely having alcohol withdrawal seizures. In which case initiation of antiepileptic medication would not be necessary. For now I will reduce his dose to 500 mg Keppra IV every 12 hours. We will await results of his EEG and MRI of the brain. For now I will start him on 81 mg aspirin, order a fasting lipid. Otherwise manage medically in the ICU. Strongly recommend counseling in alcohol cessation. Further recommendations will be made based on the above studies. I have performed a history and physical on the above patient. I have reviewed the above note, and agree.
[2017-09-03] MEDS: MAGNESIUM SULFATE-D5W PMX 1 GM in DEXTROSE/WATER 1 100ML.BAG IVPB SCH ×2 (18:46→23:23)
[2017-09-03] MEDS: THIAMINE 100 MG TAB PO SCH (18:46)
[2017-09-03] MEDS: IPRATROPIUM-ALBUTEROL 3 ML NEB INHALATION SCH (20:07)
[2017-09-03] MEDS ORDERED: levETIRAcetam IV 1,000 MG in SALINE 1 100ML.BAG IVPB SCH (21:00)
[2017-09-03] MEDS: LACTULOSE 20 GM/30 ML CUP PO SCH (21:36)
[2017-09-03] MEDS: levETIRAcetam IV 500 MG in SODIUM CHLORIDE 0.9% 100 ML IVPB SCH (21:36)
[2017-09-04] MEDS ORDERED: HYDROcodone/APAP 5-325MG 1 EACH TAB PO PRN (00:14)
[2017-09-04] MEDS: PIPERACILLIN-TAZOBACTAM 3.375 GM in DEXTROSE/WATER 1 50ML.BAG IVPB SCH ×3 (01:32→16:49)
--- NOTE | 2017-09-04 04:11 | HP ---
HISTORY AND PHYSICAL CHIEF COMPLAINT: Change in mental status, seizures. HISTORY OF PRESENT ILLNESS: This 67-year-old gentleman with a past medical history of multiple medical problems, including ETOH, history of DTs, seizures, fracture, recent perianal abscess, being followed by Dr. Singer in the outpatient setting, apparently presented to [facility] ER with a change in mental status via the EMS. The patient is very shaky and the patient collapsed to the ground. The patient was very confused. The patient probably had a seizure and the patient was drinking alcohol, last drink was yesterday. The patient had another tonic-clonic seizure in the ER while being seen. The patient was admitted for further evaluation and treatment. Patient admitted in ICU at this time. The patient has some family stress and has been drinking heavily according to the history. Currently the patient is confused and unable to provide any details. Most of the history taken from my discussion with staff and discussion with the ER physician and review of chart at this time. The patient admitted in ICU. There is no history of trauma. PAST MEDICAL HISTORY: EtOH abuse, history of withdrawals, DTs, history of right foot fracture, history of recent perianal abscess. MEDICATIONS ARE: Hydrocodone 1 tablet every 6 hours p.r.n. ALLERGIES: None. FAMILY HISTORY: History of diabetes mellitus, history of alcoholism in the family. SOCIAL HISTORY: History of alcohol, smoking. REVIEW OF SYSTEMS: Could not be taken because the patient's change in mental status. PHYSICAL EXAM: Patient is conscious but confused. Pulse 76, blood pressure 150/82, respiration 20, temperature 100 degrees, pulse ox 97% on room air. HEENT: Conjunctivae normal. Oral mucosa moist. Neck is no jugular venous distention. No carotid bruit. No lymph node enlargement. Cardiovascular system: S1, S2. No S3, no S4. RESPIRATORY: Breath sounds diminished in the bases. A few scattered rhonchi and crackles. ABDOMEN: Soft, nontender. No mass palpable. Legs no edema and no swelling. NERVOUS SYSTEM: Higher functions as mentioned earlier. Moves all four limbs. No focal motor or sensory deficits. Lymphatics: No lymph nodes palpable in the neck, axillae or groin. SKIN: No ulcer, rash or bleeding. LAB STUDIES: WBC 12.2, hemoglobin 13.2, sodium 147, glucose 134, magnesium is 1.5. UA noted. ASSESSMENT: 1. Acute generalized tonic-clonic seizures. 2. Rule out acute subacute infarct to the right posterior temporal parietal lobes. 3. Possible alcohol-withdrawal seizures. 4. Acute delirium tremens. 5. Urinary tract infection. 6. Fever. 7. History of recent perianal abscess. 8. Hypomagnesemia. 9. Increased WBC. 10.History of ETOH. 11.History of right foot fracture. 12.History of nicotine dependence. RECOMMENDATIONS AND DISCUSSION: In this 67-year-old gentleman who presented with multiple complex medical issues, we will monitor the patient closely, continue the current medications, management and symptomatic treatment. At this time, I recommend monitor closely in ICU. DVT prophylaxis. Alcohol withdrawal precautions. [facility] protocol. Ativan p.r.n. Leticia has been initiated by Neurology. Neurology evaluation. Neuro checks. Complete neurovascular workup. Broad-spectrum IV antibiotics. Zosyn has been initiated. Dr. Patel will be consulted. A chest x-ray has been done which I reviewed personally showed rather chronic changes and a CT scan of the brain was also noted, which showed a suspicion of acute subacute infarct in the right posterior temporal and parietal lobes. However a CT angio was also done and the CT angio showed no hemodynamically significant stenosis. MRI of the brain was recommended by Neurology. Overall prognosis guarded because of the multiple complex medical issues. I would recommend repeat labs and as well as DVT prophylaxis and a set of cultures including blood and urine. Once again the prognosis guarded because of multiple complex medical issues. Further recommendations to follow. p.r.n. Ativan will also be used for control of the seizures as well. Copy to Dr. Singer who is the primary physician. MMODL / IJN: [id number] /
[2017-09-04 04:49] LABS: Basophils % (A) 0 %; Eosinophils # (A) 0.1 k/uL (0-0.7); Eosinophils % (A) 1 %; HCT 39.9 % (39.0-53.0); HGB 13.6 gm/dL (13.0-17.5); Lymphocytes # (A) 1.2 k/uL (1.0-4.8); Lymphocytes % (A) 13 %; MCHC 34.2 g/dL (31.0-37.0); MCV 90.7 fL (80.0-100.0); Mean Platelet Volume 7.3; Monocytes # (A) 0.6 k/uL (0-1.0); Monocytes % (A) 7 %; Neutrophils # (A) 6.8 k/uL (1.3-7.7); Neutrophils % (A) 78 %; Platelet Count 199 k/uL (150-450); RDW 13.7 % (11.5-15.5); WBC 8.7 k/uL (3.8-10.6)
[2017-09-04 04:58] LABS: Anion Gap 12 mmol/L; Blood Urea Nitrogen 13 mg/dL (9-20); Calcium 8.7 mg/dL (8.4-10.2); Carbon Dioxide 29 mmol/L (22-30); Chloride 99 mmol/L (98-107); Glucose 104 mg/dL (74-99); Magnesium 2.2 mg/dL (1.6-2.3); Phosphorus 2.8 mg/dL (2.5-4.5); Potassium 3.9 mmol/L (3.5-5.1); Sodium 140 mmol/L (137-145)
[2017-09-04 04:59] LABS: Cholesterol 167 mg/dL (<200); HDL Cholesterol 58 mg/dL (40-60); LDL Cholesterol,Calculated 93 mg/dL (0-99); Triglycerides 79 mg/dL (<150)
[2017-09-04] MEDS: IPRATROPIUM-ALBUTEROL 3 ML NEB INHALATION SCH ×3 (07:34→20:26)
[2017-09-04] MEDS: LACTULOSE 20 GM/30 ML CUP PO SCH ×2 (08:24→22:13)
[2017-09-04] MEDS ORDERED: ENOXAPARIN 40 MG/0.4 ML SYRINGE SQ SCH (09:00)
[2017-09-04] MEDS ORDERED: PANTOPRAZOLE 40 MG/10 ML VIAL IV SCH (09:00)
[2017-09-04] MEDS: levETIRAcetam IV 500 MG in SODIUM CHLORIDE 0.9% 100 ML IVPB SCH ×2 (09:32→22:12)
[2017-09-04] MEDS: ASPIRIN 81 MG PO SCH (09:54)
[2017-09-04] MEDS: SODIUM CHLORIDE 0.9% 1,000 ML IV SCH (10:17)
[2017-09-04 11:16] VITALS: BMI 24.0
--- NOTE | 2017-09-04 12:07 | MR ---
EXAMINATION TYPE: MR brain wo/w con DATE OF EXAM: 09/04/2017 COMPARISON: CT brain 09/03/2017 HISTORY: seizure, abn CT TECHNIQUE: Multiplanar, multisequence images of the brain and brainstem is performed without and with IV contras t, utilizing 7.5 mL intravenous Gadavist . FINDINGS: Diffusion weighted images demonstrate abnormal signal involving the cortical margin right t emporal parietal junction involving both temporal and parietal lobes. Predominantly gyral with eviden ce of gyral enhancement on postcontrast images. Periventricular areas of abnormal signal the white matter are nonspecific hepatic most typical remote microvascular ischemia. Motion artifact severely limits the exam. Changes of chronic sinusitis are n oted. Suspect a venous angioma right cerebellar hemisphere. Artifact limits assessment. Midline structures demonstrate normal morphology. The craniocervical junction appears within normal limits. The dural venous sinuses appear patent. The visualized sinuses are clear and the globes are intact. Report immediately called to the patient's nurse in ICU. IMPRESSION: 1. Abnormal signal involving the right temporal and parietal lobes predominantly cortical. Gyral enha ncement seen on postcontrast images. Acute ischemia is the most likely etiology. If there is concern for infectious etiology then consider cerebritis or encephalitis. Correlate clinically
[2017-09-04] MEDS: THIAMINE 100 MG TAB PO SCH ×2 (12:33→17:47)
[2017-09-04] MEDS: MULTIVITAMINS, THERA 1 EACH TAB PO SCH (12:33)
[2017-09-04] MEDS: NICOTINE 14MG/24HR PATCH TRANSDERM SCH (12:36)
--- NOTE | 2017-09-04 12:39 | P.PN ---
Subjective Progress Note Date: 09/04/17 Principal diagnosis: Seizure Is a 67-year-old male continuing to be evaluated by the neurology service. Recall that he presented the [facility] emergency room quite confused. He has a history of heavy daily alcohol use. There may have been some seizure activity at his home. He did have a witnessed seizure in the ER. Ativan resulted symptoms in the ER. He is currently on Keppra 500 mg every 12 hours IV. He is tolerating this well, and there have been no seizures since admission. At the time my exam today he is much more alert and oriented. Recall that his CT did show some possible evidence of a right posterior temporal and parietal subacute infarct. A CTA was done and showed no hemodynamically significant stenosis or significant vascular abnormality. However was quite limited due to motion. An MRI of the brain has been performed. There was an abnormal signal involving the right temporal and parietal lobes predominantly cortical. There was generalized enhancement seen on post contrast images. This may represent acute to subacute ischemia, but given the gyral enhancement an infectious process or enhancing lesion would have to be ruled out Objective - Vital Signs Vital signs: Vital Signs Temp 98.3 F 09/04/17 08:00 Pulse 70 09/04/17 08:00 Resp 18 09/04/17 08:00 BP 143/94 09/04/17 08:00 Pulse Ox 95 09/04/17 08:00 Intake & Output 09/03/17 09/04/17 09/04/17 18:59 06:59 18:59 Intake Total 100 400 850 Output Total 400 Balance 100 400 450 Weight 86.183 kg 87.2 kg 87.2 kg Intake: IV 100 400 800 Sodium Chloride 0.9% 1, 100 400 800 000 ml @ 100 mls/hr IV . Q10H ONE Rx#:[id number] Intake, IV Titration 50 Amount Piperacillin-Tazobactam 3 50 .375 gm In Dextrose/Water 1 50ml.bag @ 12.5 mls/hr IVPB Q8HR [facility] Rx#: [id number] Output: Urine 400 Other: Voiding Method Urinal Urinal # Voids 1 1 # Bowel Movements 1 - Constitutional General appearance: Present: average body habitus, cooperative, no acute distress - EENT Eyes: Present: EOMI, PERRLA. Absent: abnormal pupil, ptosis ENT: Present: hearing grossly normal - Neck Neck: Present: normal ROM. Absent: rigidity - Respiratory Respiratory: negative: prolonged expiration, prolonged inspiration - Cardiovascular Rhythm: regular - Gastrointestinal General gastrointestinal: Absent: distended, tenderness - Neurologic Neurologic Comment(s): The patient is alert awake and oriented 3. Speech and language are normal. There is no facial asymmetry. Strength is 5 out of 5 in bilateral upper and lower extremities. There is no sensory deficit. No tremors or seizures are seen. Cranial nerves II through XII are intact globally. - Labs CBC & Chem 7: 09/04/17 04:25 09/04/17 04:25 Labs: Abnormal Lab Results - Last 24 Hours (Table) 09/03/17 09/03/17 09/04/17 Range/Units 11:10 17:25 04:25 WBC 12.6 H (3.8-10.6) k/uL Neutrophils # 11.6 H (1.3-7.7) k/uL Lymphocytes # 0.4 L (1.0-4.8) k/uL Glucose 104 H (74-99) mg/dL POC Glucose (mg/dL) 107 H (75-99) mg/dL Assessment and Plan (1) Abnormal CT of brain Current Visit: Yes Status: Acute Code(s): R90.89 - OTH ABNORMAL FINDINGS ON DIAGNOSTIC IMAGING OF CNSL SNOMED Code(s): 484855693 (2) Alcohol abuse Current Visit: Yes Status: Chronic Code(s): F10.10 - ALCOHOL ABUSE, UNCOMPLICATED SNOMED Code(s): 62995328 (3) Alcohol withdrawal Current Visit: Yes Status: Acute Code(s): F10.239 - ALCOHOL DEPENDENCE WITH WITHDRAWAL, UNSPECIFIED SNOMED Code(s): 307199661 (4) Altered mental status Current Visit: Yes Status: Resolved Code(s): R41.82 - ALTERED MENTAL STATUS , UNSPECIFIED SNOMED Code(s): 310314784 (5) Delirium tremens Current Visit: Yes Status: Acute Code(s): F10.231 - ALCOHOL DEPENDENCE WITH WITHDRAWAL DELIRIUM SNOMED Code(s): 6968620 (6) Hyperammonemia Current Visit: Yes Status: Acute Code(s): E72.20 - DISORDER OF UREA CYCLE METABOLISM, UNSPECIFIED SNOMED Code(s): 7463411 (7) Hypertension Current Visit: Yes Status: Chronic Code(s): I10 - ESSENTIAL (PRIMARY) HYPERTENSION SNOMED Code(s): 66060183 (8) Seizure Current Visit: Yes Status: Acute Code(s): R56.9 - UNSPECIFIED CONVULSIONS SNOMED Code(s): 57870027 (9) CVA (cerebral vascular accident) Current Visit: Yes Status: Acute Code(s): I63.9 - CEREBRAL INFARCTION, UNSPECIFIED SNOMED Code(s): 626302514 Plan: This patient's altered mental status was likely from metabolic encephalopathy from elevated ammonia levels and alcohol withdrawals. However, he did have an abnormal initial CT. his MRI is consistent with possibly 2 etiologies. His right temporal and parietal findings would be consistent with an acute to subacute stroke. He will continue aspirin 81 mg and Lipitor. The gyral enhancement seen on post contrast images may represent an infectious process versus an enhancing lesion. I will consult infectious disease given his history of infections including perianal abscesses. For the area of enhancement we do recommend repeat MRI in 3-6 months. We will follow him in an outpatient setting and repeat this study. In the meantime we will keep him on 500 mg Keppra PO every 12 hours. We will continue to follow. EEG data has been sent and we will be evaluating later on today. Otherwise continue to manage medically. Strongly recommend counseling in alcohol cessation. I have performed a history and physical on the above patient. I have reviewed the above note, and agree.
--- NOTE | 2017-09-04 13:22 | US ---
EXAMINATION TYPE: US carotid duplex BILAT DATE OF EXAM: 09/04/2017 COMPARISON: CT 2018 CLINICAL HISTORY: possible stroke. Mental status change, possible stroke, exam done portable in ICU. EXAM MEASUREMENTS: RIGHT: Peak Systolic Velocity (PSV) cm/sec ----- Right CCA: 69.9 ----- Right ICA: 117.3 ----- Right ECA: 131.3 ICA/CCA ratio: 1.7 RIGHT: End Diastole cm/sec ----- Right CCA: 17.1 ----- Right ICA: 38.1 ----- Right ECA: 18.1 LEFT: Peak Systolic Velocity (PSV) cm/sec ----- Left CCA: 94.8 ----- Left ICA: 181.4 ----- Left ECA: 96.3 ICA/CCA ratio: 1.9 LEFT: End Diastole cm/sec ----- Left CCA: 20.3 ----- Left ICA: 34.6 ----- Left ECA: 12.3 VERTEBRALS (direction of flow): Right Vertebral: Antegrade Left Vertebral: Antegrade Rhythm: Normal Bilateral intimal thickening, plaque bilateral bulb and ICA, elevated velocities: right prox ECA and left prox and mid ICA Difficult and limited study due to patient motion during exam. IMPRESSION: 1. 50-69 BY DIAMETER STENOSIS OF THE PROXIMAL LEFT ICA. 2. ELEVATED FLOW VELOCITY, RIGHT ECA. Criteria for Assigning % of Stenosis / Diameter reduction (Estimation based on the indirect measurements of the internal carotid artery velocities (ICA PSV). 1. Normal (no stenosis)=ICA PSV < 125 cm/s: ratio < 2.0: ICA EDV<40 cm/s. 2. Less than 50% stenosis=ICA PSV < 125 cm/s: ratio < 2.0: ICA EDV<40 cm/s. 3. 50 to 69% stenosis=ICA PSV of 125 to 230 cm/s: ration 2.0 ? 4.0: ICA EDV 40-100 cm/s. 4. Greater than 70% stenosis to near occlusion= ICA PSV > 230 cm/s: ratio > 4.0: ICA EDV > 100 cm/s. 5. Near occlusion= ICA PSV velocities may be low or undetectable: variable ratio and ICA EDV. 6. Total occlusion=unable to detect flow.
--- NOTE | 2017-09-04 13:32 | P.PN ---
Subjective Progress Note Date: 09/04/17 This is a 67-year-old gentleman with a known history of alcohol abuse, previous suicidal ideations, severe depression, recent diagnosis of perianal abscess in June 2017, chronic and ongoing tobacco dependence. He follows with Dr. Singer is his primary care physician. He was brought into the emergency room earlier this morning with altered mental status. He had been with a significant other walking to a store and he felt very shaky and collapsed to the ground. It was unclear if there was seizure activity at that time or not. He was able to state he was drinking quite heavily but has not drank in 24 hours and was trying to stop. After arriving to the emergency room he did have a seizure and was postictal. His son did not know coming to the emergency room and states that he does drink quite heavily on a daily basis. He also stated he is not known as father to have any seizures in the past. EtOH level XIII. Urine drug screen is negative. Computed tomography scan of the brain revealed acute to subacute infarct within the right posterior temporal and parietal lobes of the right MCA. There is no evidence of hemorrhagic transformation or acute intracranial hemorrhage. There was noted opacification in the right maxillary sinus and overall paranasal sinus disease. CT angiogram of the head and neck revealed no hemodynamically significant stenosis or focal occlusion. Findings of right-sided temporoparietal hypoattenuation in the greenwood matter junction favoring acute to subacute infarct are less well appreciated on this exam given the technique. The patient is seen in consultation today in the emergency room. He is currently awake and alert. He knows that he is in the hospital. Somewhat of a poor historian. He denies any significant pain or headache. No shortness of breath, cough or congestion. He is moving all 4 extremities and is currently strong equally. Pupils are equal and reactive to light. Chest x- ray reveals evidence of chronic changes but no acute pulmonary process. He now has a T-max of 101.3. He has been hemodynamically stable, somewhat hypertensive. He is maintaining O2 saturations in the 90s on 4 L/m per nasal cannula. White count 12.6. Hemoglobin 13.6. Sodium 147. Bicarb 21. Creatinine 0.77. AST 64. Ammonia 59. On 09/04/2017, the patient is fully awake and alert. No signs of any delirium tremens. He is moving all 4 extremities without any limitation despite the previous description it was given on the CAT scan of the brain that showed some acute versus subacute infarction along the right MCA distribution. The patient has symmetrical motor function and power. No altered mentation. No facial asymmetry. No change in his speech. He did have to bouts of seizures and currently is on Keppra. No seizure since he arrived into the intensive care unit. Hemodynamically stable. He is afebrile. No other significant events over the past 24 hours. The patient is being seen by neurology today. Objective - Vital Signs Vital signs: Vital Signs Temp 98.3 F 09/04/17 08:00 Pulse 75 09/04/17 13:20 Resp 18 09/04/17 08:00 BP 143/94 09/04/17 08:00 Pulse Ox 95 09/04/17 08:00 Intake & Output 09/03/17 09/04/17 09/04/17 18:59 06:59 18:59 Intake Total 100 400 850 Output Total 400 Balance 100 400 450 Weight 86.183 kg 87.2 kg 87.2 kg Intake: IV 100 400 800 Sodium Chloride 0.9% 1, 100 400 800 000 ml @ 100 mls/hr IV . Q10H ONE Rx#:[id number] Intake, IV Titration 50 Amount Piperacillin-Tazobactam 3 50 .375 gm In Dextrose/Water 1 50ml.bag @ 12.5 mls/hr IVPB Q8HR [facility] Rx#: [id number] Output: Urine 400 Other: Voiding Method Urinal Urinal # Voids 1 1 # Bowel Movements 1 - Exam GENERAL EXAM: Disheveled. Arousable. HEAD: Normocephalic. EYES: Normal reaction of pupils, equal size. NOSE: Clear with pink turbinates. THROAT: No erythema or exudates. NECK: No masses, no JVD. CHEST: No chest wall deformity. LUNGS: Equal air entry with no crackles, wheeze, rhonchi or dullness. CVS: S1 and S2 normal with no audible murmur, regular rhythm. ABDOMEN: No hepatosplenomegaly, normal bowel sounds, no guarding or rigidity. SPINE: No scoliosis or deformity SKIN: No rashes CENTRAL NERVOUS SYSTEM: No focal deficits, tone is normal in all 4 extremities. EXTREMITIES: There is no peripheral edema. No clubbing, no cyanosis. Peripheral pulses are intact. - Labs CBC & Chem 7: 09/04/17 04:25 09/04/17 04:25 Labs: Abnormal Lab Results - Last 24 Hours (Table) 09/03/17 09/04/17 Range/Units 17:25 04:25 Glucose 104 H (74-99) mg/dL POC Glucose (mg/dL) 107 H (75-99) mg/dL Assessment and Plan Plan: Assessment 1 altered mentation secondary to seizure activity/alcohol effect, recovered. The patient also was found to have acute versus subacute changes on the CAT scan of the brain indicating a stroke and an MRI of the brain that was done this morning showed abnormal signal involving the right temporoparietal lobes predominantly cortical consistent with ischemic stroke. The patient was placed on aspirin. The patient is also on Keppra for seizures. Neurologist on the case. Carotid Dopplers will be ordered. 2 seizures likely secondary to alcohol 3 alcoholism 4 smoking 5 depression 6 hypertension 7. PA and lateral abscess, history of Plan Continue aspirin. Obtain carotid Dopplers. Keppra for seizures. Neurology evaluation. Watch for any signs of delirium tremens. The patient did spike a temperature yesterday and for that reason he was placed on IV Zosyn. Chest x- ray from yesterday showed no acute abnormalities and the patient did not have any pneumonia. Currently is on room air. Continue with seizure precautions. He is on thiamine. Lovenox for DVT prophylaxis. We'll continue to follow.
--- NOTE | 2017-09-04 17:31 | PN ---
PROGRESS NOTE DATE OF SERVICE: 09/04/2017 This 67-year-old gentleman admitted with change in mental status and seizures had a brain MRI done today. The brain MRI showed abnormal signal involving the right temporal and parietal lobes, predominantly cortical, indicating acute stroke. The carotid Doppler was also done today which is reported as showing 50% to 69% diameter stenosis of the proximal left ICA and elevated flow velocity in the right ECA. No chest pain. No palpitations. Past medical history reviewed. REVIEW OF SYSTEMS: CARDIOVASCULAR SYSTEM: No angina, palpitations. RESPIRATORY SYSTEM: As mentioned earlier. GI: As mentioned earlier. : No dysuria or retention. NERVOUS SYSTEM: No numbness, weakness.. CURRENT MEDICATIONS: Current medications are reviewed and include: 1. Tylenol 650 q.6 p.r.n. 2. [place] 5 mg q.6 p.r.n. 3. DuoNeb q.i.d. and p.r.n. 4. Aspirin 81 mg daily. 5. Lipitor 20 mg at bedtime. 6. Lovenox 40 mg subcutaneously daily. 7. Cephulac 20 grams p.o. b.i.d. 8. Keppra 500 mg b.i.d. 9. Ativan 1 mg q.2 p.r.n. 10.CIWA protocol. 11.Narcan p.r.n. 12.Habitrol. 13.Protonix. PHYSICAL EXAMINATION: Patient is alert, oriented x3. Pulse is 70, blood pressure 143/94, respiration 18, temperature 98.3, pulse ox 94% on room air. HEENT: Conjunctivae normal. Oral mucosa moist. NECK: No jugular venous distention. No carotid bruit. No lymph node enlargement. CARDIOVASCULAR SYSTEM: S1, S2 muffled. RESPIRATORY SYSTEM: Breath sounds diminished at the bases. A few scattered rhonchi and crackles. ABDOMEN: Soft, non-tender. LEGS: No edema. No swelling. NERVOUS SYSTEM: Diffusely weak. LABS: CBC within normal limits. Sodium 140, potassium 3.9. ASSESSMENT: 1. Acute generalized tonic-clonic seizures. 2. Acute cerebrovascular accident involving the right temporal and right parietal lobes. 3. Possible alcohol withdrawal seizures. 4. Acute delirium tremens. 5. Urinary tract infection. 6. Carotid artery stenosis of the left ICA of 50% to 69%. 7. Urinary tract infection. 8. Fever. 9. History of recent perianal abscess. 10.Hypomagnesemia. 11.Increased white count. 12.History of ethanol. 13.History of right foot fracture. 14.History of nicotine dependence. RECOMMENDATIONS AND DISCUSSION: I recommend to continue current medication, continue symptomatic treatment. I recommend continuing with broad-spectrum IV antibiotics. Closely follow with Neurology. Complete neurovascular workup. Guarded prognosis. Continue CIWA protocol. DVT prophylaxis. Discussed with the patient, who understands and agrees. Further recommendations to follow. MMODL / IJN: [id number] /
[2017-09-04] MEDS: ATORVASTATIN 20 MG TAB PO SCH (22:14)
--- NOTE | 2017-09-04 23:37 | CONS ---
CONSULTATION DATE OF SERVICE: 09/04/2017. REASON FOR CONSULTATION: Abnormal MRI and a question of encephalitis/infections. HISTORY OF PRESENT ILLNESS: The patient is a 67-year-old male who apparently was walking and the patient felt shaky and collapsed to the ground. The patient was very confused and EMS was called in who brought the patient to the ER at [facility] on 09/03/2017 for further evaluation of the same. The patient apparently did have a history of heavy drinking with concern for possible seizure related to his alcohol withdrawal. The patient did spike a fever of 101.3 in the evening for with the patient has been started on Zosyn with overall resolution of his fever. Further workup in the ER including a chest x-ray shows chronic changes without evidence for acute pulmonary disease. The patient did have a CT of the brain which was suggestive of an acute to subacute infarct within the right posterior temporal and parietal lobes in the distribution of a branch of right MCA. Patient also had an MRI of the brain completed which shows abnormal signal involving the right temporal and parietal lobes, predominantly cortical. Acute ischemia is most likely etiology. Consult from infectious disease regarding cellulitis encephalitis that prompted the Infectious Disease consult being requested by neurology. At the time of my evaluation, the patient is afebrile. The patient did remember that he was walking and fell down. The patient denies having any headache to me. The patient denies having any fever or chills prior to that. The patient denies having any history of a infection or genital herpes. Denies any chest pain or shortness of breath , cough, abdominal pain or any diarrhea. REVIEW OF SYSTEMS: CONSTITUTIONAL: Positive for weakness. Denies any fever. However, there was one fever recorded in the hospital. No fever prior to that. Eyes: No complaint. ENT no complaint. Respiratory no complaint. Cardiovascular no complaint. Genitourinary no complaint. Gastrointestinal: No complaint. Musculoskeletal no complaint. Integumentary: No complaint. Psychological no complaint. Endocrine no complaint. Neurological as per HPI. PAST MEDICAL HISTORY: Significant for alcohol abuse, withdrawal, DTs. PAST SURGICAL HISTORY: Colonoscopy. SOCIAL HISTORY: Current everyday smoker. History of drinking. No drug use. FAMILY HISTORY: Father history of diabetes and mother history of diabetes as well. ALLERGIES: No known drug allergies. MEDICATION: Medications include the patient is currently on vitamin B1, Piptazobactam, Protonix and Zofran, nicotine patch, Narcan, Theragran, Tylenol. EXAMINATION: Blood pressure 162/97 with a pulse of 62, temperature 98.5, T-max 101. He is 96% on room air. General description is an elderly male lying in bed in no distress. No tachypnea or accessory muscles of respiration use. HEENT: Shows no pallor or scleral icterus. Oral mucosa is moist with no significant erythema or thrush. Neck: Trachea central. No thyromegaly. Lungs unlabored breathing. Clear to auscultation. No wheeze or crackles. Heart S1, S2. Regular rate and rhythm. ABDOMEN: Soft, no tenderness. No guarding or rigidity. No organomegaly. EXTREMITIES: No edema of the feet. Skin examination: No rash or mass palpable. Neurological: Patient is awake, alert, oriented times three and no signs of agitation. LABS: Hemoglobin 13.1 , white count of 8.7, admission white was 12.6, BUN of 13, creatinine 0.67, electrolytes have been normal. Urine did show moderate leukocyte esterase, 19 WBC. Urine drug screen was negative. Alcohol level was 13. DIAGNOSTIC IMPRESSION/PLAN: Patient with an abnormal MRI in a patient admitted to the hospital and the patient did have a syncopal episode while he was walking with a question of possible seizure activity. The patient subsequently did have a fever of [address] as well as MRI of the right temporal lobes with concern for possible CVA versus encephalitis to the temporal lobe usually involved and herpetic infection. In view of the fever and elevated white count that needs to be ruled out to be the possible etiology as we do not have any clinical focus for this fever that the patient has as of yesterday. PLAN: 1. We asked for a stat lumbar puncture with fluid sent for cell count, differential, and glucose protein HSV DNA by PCR. Unfortunately, the patient did receive Lovenox and anesthesia refused to do the LP. 2. Will check HSV 1 and 2 serologies. 3. We will empirically add acyclovir 10 mg/kg q.8 while waiting for the LP to finalize. 4. Repeat a chest x-ray tomorrow. 5. We will follow up on the clinical condition and culture to further adjust medication if needed. Thank you for this consultation. Will follow this patient along with you. MMODL / IJN: [id number] /
[2017-09-05] MEDS: PIPERACILLIN-TAZOBACTAM 3.375 GM in DEXTROSE/WATER 1 50ML.BAG IVPB SCH ×4 (00:59→23:44)
--- NOTE | 2017-09-05 06:51 | XR ---
EXAMINATION TYPE: XR chest 2V DATE OF EXAM: 09/05/2017 HISTORY: Fever. REFERENCE: Previous study dated 09/03/2017. FINDINGS: There is improved aeration of both lungs. The heart is not enlarged. There is some blunting of the right CP angle. I could not exclude a small effusion. IMPRESSION: IMPROVED AERATION, BOTH LUNGS.
[2017-09-05 07:08] LABS: Basophils % (A) 0 %; Eosinophils # (A) 0.1 k/uL (0-0.7); Eosinophils % (A) 1 %; HCT 40.6 % (39.0-53.0); HGB 13.4 gm/dL (13.0-17.5); Lymphocytes # (A) 1.3 k/uL (1.0-4.8); Lymphocytes % (A) 17 %; MCH 30.4 pg (25.0-35.0); MCHC 32.9 g/dL (31.0-37.0); MCV 92.4 fL (80.0-100.0); Monocytes # (A) 0.6 k/uL (0-1.0); Monocytes % (A) 8 %; Neutrophils # (A) 5.4 k/uL (1.3-7.7); Neutrophils % (A) 72 %; Platelet Count 163 k/uL (150-450); RBC 4.39 m/uL (4.30-5.90); RDW 13.5 % (11.5-15.5); WBC 7.5 k/uL (3.8-10.6)
[2017-09-05 07:15] LABS: Anion Gap 12 mmol/L; Blood Urea Nitrogen 15 mg/dL (9-20); Calcium 9.1 mg/dL (8.4-10.2); Carbon Dioxide 30 mmol/L (22-30); Chloride 100 mmol/L (98-107); Glucose 97 mg/dL (74-99); Magnesium 1.8 mg/dL (1.6-2.3); Phosphorus 2.6 mg/dL (2.5-4.5); Potassium 3.8 mmol/L (3.5-5.1); Sodium 142 mmol/L (137-145)
[2017-09-05] MEDS: levETIRAcetam IV 500 MG in SODIUM CHLORIDE 0.9% 100 ML IVPB SCH ×2 (07:47→21:14)
[2017-09-05] MEDS: NICOTINE 14MG/24HR PATCH TRANSDERM SCH (07:48)
[2017-09-05] MEDS: LACTULOSE 20 GM/30 ML CUP PO SCH ×2 (07:49→21:15)
[2017-09-05] MEDS: ASPIRIN 81 MG PO SCH (07:49)
[2017-09-05] MEDS: PANTOPRAZOLE 40 MG TABLET PO SCH (07:49)
[2017-09-05] MEDS: IPRATROPIUM-ALBUTEROL 3 ML NEB INHALATION SCH ×3 (08:18→20:20)
[2017-09-05] MEDS: LORazepam 2 MG/ML INJ IV PRN ×2 (09:30→19:45)
[2017-09-05] MEDS: MULTIVITAMINS, THERA 1 EACH TAB PO SCH (11:27)
[2017-09-05] MEDS: THIAMINE 100 MG TAB PO SCH ×2 (11:27→15:48)
[2017-09-05] MEDS: SODIUM CHLORIDE 0.9% 1,000 ML IV SCH (11:35)
--- NOTE | 2017-09-05 12:24 | P.PN ---
Subjective Progress Note Date: 09/05/17 Principal diagnosis: Seizure Is a 67-year-old male continuing to be evaluated by the neurology service. Recall that he presented the [facility] emergency room quite confused. He has a history of heavy daily alcohol use. There may have been some seizure activity at his home. He did have a witnessed seizure in the ER. Ativan resulted symptoms in the ER. He is currently on Keppra 500 mg every 12 hours IV. He is tolerating this well, and there have been no seizures since admission. At the time my exam today he is much more alert and oriented. Recall that his CT did show some possible evidence of a right posterior temporal and parietal subacute infarct. A CTA was done and showed no hemodynamically significant stenosis or significant vascular abnormality. However was quite limited due to motion. An MRI of the brain has been performed. There was an abnormal signal involving the right temporal and parietal lobes predominantly cortical. There was generalized enhancement seen on post contrast images. This may represent acute to subacute ischemia, but given the gyral enhancement an infectious process or enhancing lesion would have to be ruled out 09/05/2017 update: He has no new neurological deficits. There is been no seizure activity since my last exam. Infectious diseases evaluating and has recommended a lumbar puncture. Lumbar puncture is on hold because he was on anticoagulants. Objective - Vital Signs Vital signs: Vital Signs Temp 98 F 09/05/17 06:10 Pulse 70 09/05/17 06:10 Resp 17 09/05/17 08:00 BP 157/92 09/05/17 06:10 Pulse Ox 97 09/05/17 08:18 Intake & Output 09/04/17 09/05/17 09/05/17 18:59 06:59 18:59 Intake Total 1350 370 Output Total 400 Balance 950 370 Weight 87.2 kg Intake: IV 1300 Sodium Chloride 0.9% 1, 1300 000 ml @ 100 mls/hr IV . Q10H [facility] Rx#:[id number] Intake, IV Titration 50 370 Amount Piperacillin-Tazobactam 3 50 50 .375 gm In Dextrose/Water 1 50ml.bag @ 12.5 mls/hr IVPB Q8HR [facility] Rx#: [id number] Sodium Chloride 0.9% 1, 320 000 ml @ 40 mls/hr IV . Q24H [facility] Rx#:[id number] Output: Urine 400 Other: Voiding Method Urinal Toilet Toilet Urinal # Voids 1 2 - Constitutional General appearance: Present: cooperative, no acute distress - EENT Eyes: Present: PERRLA. Absent: abnormal pupil, ptosis ENT: Present: hearing grossly normal - Neck Neck: Present: normal ROM. Absent: rigidity - Respiratory Respiratory: negative: prolonged expiration, prolonged inspiration - Cardiovascular Rhythm: regular - Gastrointestinal General gastrointestinal: Absent: distended, tenderness - Neurologic Neurologic Comment(s): The patient is alert awake and oriented 3. Speech and language are normal. There is no facial asymmetry. Strength is 5 out of 5 in bilateral upper and lower extremities. There is no sensory deficit. No tremors or seizures are seen. Cranial nerves II through XII are intact globally. - Labs CBC & Chem 7: 09/05/17 06:21 09/05/17 06:21 Labs: Microbiology - Last 24 Hours (Table) 09/04/17 00:28 Blood Culture - Preliminary Blood No Growth after 24 hours 09/04/17 18:30 Urine Culture - Preliminary Urine,Voided Assessment and Plan (1) Abnormal CT of brain Current Visit: Yes Status: Acute Code(s): R90.89 - OTH ABNORMAL FINDINGS ON DIAGNOSTIC IMAGING OF CNSL SNOMED Code(s): 309520703 (2) Alcohol abuse Current Visit: Yes Status: Chronic Code(s): F10.10 - ALCOHOL ABUSE, UNCOMPLICATED SNOMED Code(s): 29882849 (3) Alcohol withdrawal Current Visit: Yes Status: Acute Code(s): F10.239 - ALCOHOL DEPENDENCE WITH WITHDRAWAL, UNSPECIFIED SNOMED Code(s): 282261306 (4) Altered mental status Current Visit: Yes Status: Resolved Code(s): R41.82 - ALTERED MENTAL STATUS , UNSPECIFIED SNOMED Code(s): 583535802 (5) Delirium tremens Current Visit: Yes Status: Acute Code(s): F10.231 - ALCOHOL DEPENDENCE WITH WITHDRAWAL DELIRIUM SNOMED Code(s): 7930269 (6) Hyperammonemia Current Visit: Yes Status: Acute Code(s): E72.20 - DISORDER OF UREA CYCLE METABOLISM, UNSPECIFIED SNOMED Code(s): 5841740 (7) Hypertension Current Visit: Yes Status: Chronic Code(s): I10 - ESSENTIAL (PRIMARY) HYPERTENSION SNOMED Code(s): 51865676 (8) Seizure Current Visit: Yes Status: Acute Code(s): R56.9 - UNSPECIFIED CONVULSIONS SNOMED Code(s): 79789089 (9) CVA (cerebral vascular accident) Current Visit: Yes Status: Acute Code(s): I63.9 - CEREBRAL INFARCTION, UNSPECIFIED SNOMED Code(s): 515870089 Plan: This patient's altered mental status was likely from metabolic encephalopathy from elevated ammonia levels and alcohol withdrawals. However, he did have an abnormal initial CT. his MRI is consistent with possibly 2 etiologies. His right temporal and parietal findings would be consistent with an acute to subacute stroke. He will continue aspirin 81 mg and Lipitor. The gyral enhancement seen on post contrast images may represent an infectious process versus an enhancing lesion. Infectious disease has recommended a lumbar puncture and that is pending. For the area of enhancement we do recommend repeat MRI in 3-6 months. We will follow him in an outpatient setting and repeat this study. In the meantime we will keep him on 500 mg Keppra PO every 12 hours. We will continue to follow. Otherwise continue to manage medically. Strongly recommend counseling in alcohol cessation. Note that his CTA and carotid Doppler will both limited studies due to patient movement. However, there may be some flow-limiting stenosis. Recommend possible consultation with cardiovascular specialty. I have performed a history and physical on the above patient. I have reviewed the above note, and agree.
--- NOTE | 2017-09-05 12:50 | PN ---
PROGRESS NOTE DATE OF SERVICE: 09/05/2017. INTERVAL HISTORY: This 67-year-old gentleman who was admitted with seizures, had significant stroke-like features in MRI scan. The patient is also running fever. The possibility of encephalitis was also considered. Infectious Disease has also seen the patient for possible lumbar puncture at this time. No fever. No cough. PAST MEDICAL HISTORY: Reviewed. REVIEW OF SYSTEMS: Could not be taken. The patient is still confused. CURRENT MEDICATIONS: Reviewed and include: 1. Tylenol 650 q.6h p.r.n. 2. [place] 5 mg q.p.m. 3. DuoNeb q.i.d. and t.i.d. and p.r.n. 4. Aspirin 81 mg daily. 5. Lipitor 20 mg. 6. Lactulose 20 mg b.i.d. 7. Keppra 500 mg b.i.d. 8. Ativan 1 mg b.i.d. 9. Replacement protocols. 10.Habitrol 14 daily. 11.Protonix. 12.Zosyn 3.375 IV q.8. 13.Vitamin B1. PHYSICAL EXAM: Patient is alert, oriented x2. Pulse 70, blood pressure 157/82, respirations 17, temperature 98 degrees, pulse ox 97% on room air. HEENT: Conjunctivae normal. NECK: No jugular venous distention. CARDIOVASCULAR: S1, S2 muffled. RESPIRATORY: Breath sounds diminished at the bases. A few scattered rhonchi. ABDOMEN: Soft. LEGS: No edema. NERVOUS SYSTEM: Diffusely weak. LABS: WBC 7.2, hemoglobin 13.4, sodium is 142. Lytes are noted. Alcohol is 13. ASSESSMENT: 1. Acute generalized tonic-clonic seizures on presentation. 2. Possible acute cerebrovascular accident involving the right temporal and right parietal lobes to rule out encephalitis or IMMIGRATION ATTORNEY infections. 3. Possible alcohol withdrawal seizures. 4. Acute delirium tremens. 5. Urinary tract infection. 6. Carotid artery stenosis, left ICA 50-69%. 7. Fever on presentation. 8. History of recent perianal abscess. 9. Hypomagnesemia. 10.Increased WBC. 11.History of ETOH. 12.History of right foot fracture. 13.History of nicotine dependence. RECOMMENDATIONS AND DISCUSSION: I recommend to continue current medication, continue to monitor, symptomatic treatment. At this time I would recommend follow the patient closely. Empiric antibiotics. Lumbar puncture recommended by Infectious Disease. Closely follow with Neurology. Prognosis guarded. The patient has atypical presentation and multiple complex comorbidities as discussed earlier. Further recommendations to follow. MMODL / IJN: [id number] /
--- NOTE | 2017-09-05 14:31 | P.PN ---
Subjective Progress Note Date: 09/05/17 This is a 67-year-old gentleman with a known history of alcohol abuse, previous suicidal ideations, severe depression, recent diagnosis of perianal abscess in June 2017, chronic and ongoing tobacco dependence. He follows with Dr. Singer is his primary care physician. He was brought into the emergency room earlier this morning with altered mental status. He had been with a significant other walking to a store and he felt very shaky and collapsed to the ground. It was unclear if there was seizure activity at that time or not. He was able to state he was drinking quite heavily but has not drank in 24 hours and was trying to stop. After arriving to the emergency room he did have a seizure and was postictal. His son did not know coming to the emergency room and states that he does drink quite heavily on a daily basis. He also stated he is not known as father to have any seizures in the past. EtOH level XIII. Urine drug screen is negative. Computed tomography scan of the brain revealed acute to subacute infarct within the right posterior temporal and parietal lobes of the right MCA. There is no evidence of hemorrhagic transformation or acute intracranial hemorrhage. There was noted opacification in the right maxillary sinus and overall paranasal sinus disease. CT angiogram of the head and neck revealed no hemodynamically significant stenosis or focal occlusion. Findings of right-sided temporoparietal hypoattenuation in the greenwood matter junction favoring acute to subacute infarct are less well appreciated on this exam given the technique. The patient is seen in consultation today in the emergency room. He is currently awake and alert. He knows that he is in the hospital. Somewhat of a poor historian. He denies any significant pain or headache. No shortness of breath, cough or congestion. He is moving all 4 extremities and is currently strong equally. Pupils are equal and reactive to light. Chest x- ray reveals evidence of chronic changes but no acute pulmonary process. He now has a T-max of 101.3. He has been hemodynamically stable, somewhat hypertensive. He is maintaining O2 saturations in the 90s on 4 L/m per nasal cannula. White count 12.6. Hemoglobin 13.6. Sodium 147. Bicarb 21. Creatinine 0.77. AST 64. Ammonia 59. On 09/04/2017, the patient is fully awake and alert. No signs of any delirium tremens. He is moving all 4 extremities without any limitation despite the previous description it was given on the CAT scan of the brain that showed some acute versus subacute infarction along the right MCA distribution. The patient has symmetrical motor function and power. No altered mentation. No facial asymmetry. No change in his speech. He did have to bouts of seizures and currently is on Keppra. No seizure since he arrived into the intensive care unit. Hemodynamically stable. He is afebrile. No other significant events over the past 24 hours. The patient is being seen by neurology today. On today's evaluation of 09/05/2017, the patient is out of the intensive care unit. The patient did not have any further episode of seizure. The patient is currently awake and alert. No headaches. No altered mentation. No seizure activity. No focal neurological deficit. Carotid Dopplers were noted. The patient was found to have 50-69% stenosis of the proximal left internal carotid artery. The patient remains on aspirin. He is currently on room air oxygen. A chest x-ray from today showed improved aeration of the lung bases bilaterally. No fever. No chills. No other issues otherwise for now. Objective - Vital Signs Vital signs: Vital Signs Temp 98 F 09/05/17 06:10 Pulse 70 09/05/17 06:10 Resp 17 09/05/17 08:00 BP 157/92 09/05/17 06:10 Pulse Ox 97 09/05/17 08:18 Intake & Output 09/04/17 09/05/17 09/05/17 18:59 06:59 18:59 Intake Total 1350 370 370 Output Total 400 Balance 950 370 370 Weight 87.2 kg Intake: IV 1300 Sodium Chloride 0.9% 1, 1300 000 ml @ 100 mls/hr IV . Q10H [facility] Rx#:[id number] Intake, IV Titration 50 370 370 Amount Piperacillin-Tazobactam 3 50 50 50 .375 gm In Dextrose/Water 1 50ml.bag @ 12.5 mls/hr IVPB Q8HR [facility] Rx#: [id number] Sodium Chloride 0.9% 1, 320 320 000 ml @ 40 mls/hr IV . Q24H [facility] Rx#:[id number] Output: Urine 400 Other: Voiding Method Urinal Toilet Toilet Urinal # Voids 1 2 2 # Bowel Movements 2 - Exam GENERAL EXAM: Disheveled. Arousable. HEAD: Normocephalic. EYES: Normal reaction of pupils, equal size. NOSE: Clear with pink turbinates. THROAT: No erythema or exudates. NECK: No masses, no JVD. CHEST: No chest wall deformity. LUNGS: Equal air entry with no crackles, wheeze, rhonchi or dullness. CVS: S1 and S2 normal with no audible murmur, regular rhythm. ABDOMEN: No hepatosplenomegaly, normal bowel sounds, no guarding or rigidity. SPINE: No scoliosis or deformity SKIN: No rashes CENTRAL NERVOUS SYSTEM: No focal deficits, tone is normal in all 4 extremities. EXTREMITIES: There is no peripheral edema. No clubbing, no cyanosis. Peripheral pulses are intact. - Labs CBC & Chem 7: 09/05/17 06:21 09/05/17 06:21 Labs: Microbiology - Last 24 Hours (Table) 09/04/17 00:28 Blood Culture - Preliminary Blood No Growth after 24 hours 09/04/17 18:30 Urine Culture - Preliminary Urine,Voided Assessment and Plan Plan: Assessment 1 altered mentation secondary to seizure activity/alcohol effect, recovered. The patient also was found to have acute versus subacute changes on the CAT scan of the brain indicating a stroke and an MRI of the brain that was done this morning showed abnormal signal involving the right temporoparietal lobes predominantly cortical consistent with ischemic stroke. The patient was placed on aspirin. The patient is also on Keppra for seizures. Neurologist on the case. Carotid Dopplers showed 50-69% stenosis of the carotid artery on the left. The patient is neurologically stable for now. No other complaints otherwise. 2 seizures likely secondary to alcohol 3 alcoholism 4 smoking 5 depression 6 hypertension 7 right carotid artery stenosis, 50-69% plan May discontinue Zosyn with the next 24 hours. Chest x-ray shows improvement in the volume status and aeration of the lung bases. No respiratory difficulties. The patient is currently on room air. No seizure been noted and the patient is currently on Keppra. Neurology to follow-up on the MRI findings. We'll follow. Continue aspirin. Continue Keppra. We'll follow
[2017-09-05] MEDS: ATORVASTATIN 20 MG TAB PO SCH (21:15)
--- NOTE | 2017-09-05 22:44 | PN ---
PROGRESS NOTE DATE OF SERVICE: 09/05/2017 REASON FOR FOLLOWUP: Fever and abnormal MRI, question of encephalitis. INTERVAL HISTORY: The patient is afebrile. He is breathing comfortably. The patient denies having any headache. No nausea, vomiting. Denies any chest pain, shortness of breath, abdominal pain, or any diarrhea. EXAMINATION: Blood pressure 160/96, pulse of 68, temperature 98.5. He is 97% on room air. General description is an elderly male lying in bed in no distress. RESPIRATORY SYSTEM: Unlabored breathing, clear to auscultation anteriorly. HEART: S1, S2. Regular rate and rhythm. ABDOMEN: Soft, no tenderness. EXTREMITIES: No edema of the feet. LABS: Hemoglobin is 13.4, white count 7.5. BUN of 15, creatinine 0.74. Repeat x-rays with improved aeration. Blood culture negative. Urine is negative. DIAGNOSTIC IMPRESSION AND PLAN: Patient admitted to the hospital with syncopal episode. Subsequently did have abnormal MRI, as well as the CT with the possibility of encephalitis. This is most involving the right-sided temporal. We did ordered examination yesterday, however because of him receiving a dose of Lovenox this was subsequently put on hold and was supposed to be done today; however, when the RN called Anesthesia they told they would only come if it needed to be done stat. Neurology did okay for the LP to be done tomorrow. I was not contacted about the decision. We will wait for the LP to be finalized to make a final decision. We will hold on the antiviral at this point as the patient clinically is not behaving as such. Continue supportive care. MMODL / IJN: [id number] /
[2017-09-06] MEDS: IPRATROPIUM-ALBUTEROL 3 ML NEB INHALATION SCH ×3 (07:29→19:34)
[2017-09-06] MEDS: levETIRAcetam IV 500 MG in SODIUM CHLORIDE 0.9% 100 ML IVPB SCH ×2 (07:48→21:49)
[2017-09-06] MEDS: PANTOPRAZOLE 40 MG TABLET PO SCH (07:49)
[2017-09-06] MEDS: ASPIRIN 81 MG PO SCH (07:49)
[2017-09-06] MEDS: NICOTINE 14MG/24HR PATCH TRANSDERM SCH (07:49)
[2017-09-06] MEDS: LACTULOSE 20 GM/30 ML CUP PO SCH ×2 (07:49→21:49)
[2017-09-06 08:06] LABS: Basophils % (A) 0 %; Eosinophils # (A) 0.1 k/uL (0-0.7); Eosinophils % (A) 2 %; HCT 38.8 % (39.0-53.0); HGB 13.5 gm/dL (13.0-17.5); Lymphocytes # (A) 1.2 k/uL (1.0-4.8); Lymphocytes % (A) 21 %; MCH 31.3 pg (25.0-35.0); MCHC 34.7 g/dL (31.0-37.0); MCV 90.3 fL (80.0-100.0); Mean Platelet Volume 7.9; Monocytes # (A) 0.5 k/uL (0-1.0); Monocytes % (A) 8 %; Neutrophils # (A) 3.8 k/uL (1.3-7.7); Neutrophils % (A) 67 %; Platelet Count 165 k/uL (150-450); RDW 13.3 % (11.5-15.5); WBC 5.8 k/uL (3.8-10.6)
[2017-09-06] MEDS: PIPERACILLIN-TAZOBACTAM 3.375 GM in DEXTROSE/WATER 1 50ML.BAG IVPB SCH ×3 (08:30→23:21)
[2017-09-06 08:31] LABS: Anion Gap 13 mmol/L; Blood Urea Nitrogen 14 mg/dL (9-20); Calcium 8.9 mg/dL (8.4-10.2); Carbon Dioxide 29 mmol/L (22-30); Chloride 100 mmol/L (98-107); Glucose 98 mg/dL (74-99); Magnesium 1.6 mg/dL (1.6-2.3); Phosphorus 3.7 mg/dL (2.5-4.5); Potassium 3.5 mmol/L (3.5-5.1); Sodium 142 mmol/L (137-145)
[2017-09-06] MEDS: SODIUM CHLORIDE 0.9% 1,000 ML IV SCH (10:53)
--- NOTE | 2017-09-06 11:18 | PN ---
PROGRESS NOTE DATE OF SERVICE: 09/06/2017 This is a 67-year-old gentleman admitted with seizures. The patient also had significant stroke in the MRI scan. A lumbar puncture has been recommended by Dr. Osuna for the possibility of encephalitis and other pathology. The sensorium has improved significantly. No chest pain. No palpitations. No fever. Mild weakness noted. PT, OT is evaluating the patient. PHYSICAL EXAM: Alert and oriented x3. Pulse 63, blood pressure 150/80, respirations 16, temperature 97.8, pulse ox 98% on room air. HEENT: Conjunctivae normal. Oral mucosa moist, Neck is no jugular venous distension. CARDIOVASCULAR SYSTEM: S1, S2 muffled. RESPIRATORY: Breath sounds diminished in the bases, no rhonchi, no crackles. ABDOMEN: Soft. LEGS: No swelling. NERVOUS SYSTEM: No focal deficits. LABS: CBC BMP noted. ASSESSMENT: 1. Acute generalized tonic-clonic seizures on presentation for evaluation. 2. Possible acute cerebrovascular accident involving the right temporal, right parietal lobes. Rule out encephalitis or HAND OUTSIDE CUTTER infections are the pathology. 3. Possible alcohol withdrawal seizures. 4. Acute delirium tremens. 5. Urinary tract infection. 6. Carotid artery stenosis, left internal carotid artery 50%-69%. 7. Fever on presentation. 8. History of recent perianal abscess. 9. Hypomagnesemia. 10.Increased WBC. 11.History of ETOH. 12.History of right foot fracture. 13.History of nicotine dependence. RECOMMENDATION: Recommend to continue current medication, continue with the symptomatic treatment. Otherwise, at this time will continue with the antibiotics, PT, OT evaluation, lumbar puncture. Guarded prognosis. Further recommendations to follow. MMODL / IJN: [id number] /
[2017-09-06] MEDS: THIAMINE 100 MG TAB PO SCH ×2 (12:12→16:40)
[2017-09-06] MEDS: MULTIVITAMINS, THERA 1 EACH TAB PO SCH (12:12)
--- NOTE | 2017-09-06 12:33 | PN ---
PROGRESS NOTE DATE OF SERVICE: 09/06/2017 REASON FOR FOLLOWUP: An abnormal MRI with a question of encephalitis. INTERVAL HISTORY: The patient is afebrile. He is currently breathing comfortably. Denies any headache. No chest pain, no shortness of breath, no cough. No abdominal pain or any diarrhea. PHYSICAL EXAMINATION: Blood pressure 156/86, pulse of 70, temperature 97.9, he is 96% on room air. General description is an elderly male, lying in bed in no distress. RESPIRATORY SYSTEM: Unlabored breathing, clear to auscultation anteriorly. HEART: S1, S2. Regular rate and rhythm. ABDOMEN: Soft, no tenderness. EXTREMITIES: No edema of the feet. LABS: Hemoglobin 13.5, white count of 5.8 with a BUN of 14, creatinine 0.77. DIAGNOSTIC IMPRESSION AND PLAN: Patient admitted to the hospital with syncopal episode. He did have a fever. An MRI and CT suspicious for a temporal lobe abnormality with question of possible encephalitis and LP is currently pending. I did talk to the anesthesiologist who promised he will come in and do the LP today If the lumbar puncture is normal, he is able to go home. Continue supportive care. All his questions were answered. MMODL / IJN: [id number] /
--- NOTE | 2017-09-06 12:55 | P.PN ---
Subjective Progress Note Date: 09/06/17 Principal diagnosis: Altered mental status secondary to seizure activity This is a 67-year-old gentleman with a known history of alcohol abuse, previous suicidal ideations, severe depression, recent diagnosis of perianal abscess in June 2017, chronic and ongoing tobacco dependence. He follows with Dr. Singer is his primary care physician. He was brought into the emergency room earlier this morning with altered mental status. He had been with a significant other walking to a store and he felt very shaky and collapsed to the ground. It was unclear if there was seizure activity at that time or not. He was able to state he was drinking quite heavily but has not drank in 24 hours and was trying to stop. After arriving to the emergency room he did have a seizure and was postictal. His son did not know coming to the emergency room and states that he does drink quite heavily on a daily basis. He also stated he is not known as father to have any seizures in the past. EtOH level XIII. Urine drug screen is negative. Computed tomography scan of the brain revealed acute to subacute infarct within the right posterior temporal and parietal lobes of the right MCA. There is no evidence of hemorrhagic transformation or acute intracranial hemorrhage. There was noted opacification in the right maxillary sinus and overall paranasal sinus disease. CT angiogram of the head and neck revealed no hemodynamically significant stenosis or focal occlusion. Findings of right-sided temporoparietal hypoattenuation in the greenwood matter junction favoring acute to subacute infarct are less well appreciated on this exam given the technique. The patient is seen in consultation today in the emergency room. He is currently awake and alert. He knows that he is in the hospital. Somewhat of a poor historian. He denies any significant pain or headache. No shortness of breath, cough or congestion. He is moving all 4 extremities and is currently strong equally. Pupils are equal and reactive to light. Chest x- ray reveals evidence of chronic changes but no acute pulmonary process. He now has a T-max of 101.3. He has been hemodynamically stable, somewhat hypertensive. He is maintaining O2 saturations in the 90s on 4 L/m per nasal cannula. White count 12.6. Hemoglobin 13.6. Sodium 147. Bicarb 21. Creatinine 0.77. AST 64. Ammonia 59. On 09/04/2017, the patient is fully awake and alert. No signs of any delirium tremens. He is moving all 4 extremities without any limitation despite the previous description it was given on the CAT scan of the brain that showed some acute versus subacute infarction along the right MCA distribution. The patient has symmetrical motor function and power. No altered mentation. No facial asymmetry. No change in his speech. He did have to bouts of seizures and currently is on Keppra. No seizure since he arrived into the intensive care unit. Hemodynamically stable. He is afebrile. No other significant events over the past 24 hours. The patient is being seen by neurology today. On today's evaluation of 09/05/2017, the patient is out of the intensive care unit. The patient did not have any further episode of seizure. The patient is currently awake and alert. No headaches. No altered mentation. No seizure activity. No focal neurological deficit. Carotid Dopplers were noted. The patient was found to have 50-69% stenosis of the proximal left internal carotid artery. The patient remains on aspirin. He is currently on room air oxygen. A chest x-ray from today showed improved aeration of the lung bases bilaterally. No fever. No chills. No other issues otherwise for now. On 09/06/2017, patient is doing relatively well, seen by many consultants, and I believe he is scheduled to undergo lumbar puncture today. Patient remains on seizure precautions, labs were noted to be relatively normal. Objective - Vital Signs Vital signs: Vital Signs Temp 97.9 F 09/06/17 07:12 Pulse 72 09/06/17 07:39 Resp 16 09/06/17 07:12 BP 156/86 09/06/17 07:12 Pulse Ox 96 09/06/17 07:12 Intake & Output 09/05/17 09/06/17 09/06/17 18:59 06:59 18:59 Intake Total 370 180 Output Total 400 Balance 370 180 -400 Weight 87.2 kg Intake: IV 100 levETIRAcetam IV 500 mg 100 In Sodium Chloride 0.9% 100 ml @ 400 mls/hr IVPB Q12HR [facility] Rx#:[id number] Intake, IV Titration 370 80 Amount Piperacillin-Tazobactam 3 50 .375 gm In Dextrose/Water 1 50ml.bag @ 12.5 mls/hr IVPB Q8HR [facility] Rx#: [id number] Sodium Chloride 0.9% 1, 320 80 000 ml @ 40 mls/hr IV . Q24H [facility] Rx#:[id number] Output: Urine 400 Other: Voiding Method Toilet Toilet Toilet Urinal # Voids 2 1 1 # Bowel Movements 2 1 - Exam GENERAL EXAM: Physical exam revealed a 67-year-old white male in no distress. HEAD: Normocephalic. EYES: Normal reaction of pupils, equal size. NOSE: Clear with pink turbinates. THROAT: No erythema or exudates. NECK: No masses, no JVD. CHEST: No chest wall deformity. LUNGS: Equal air entry with no crackles, wheeze, rhonchi or dullness. CVS: S1 and S2 normal with no audible murmur, regular rhythm. ABDOMEN: No hepatosplenomegaly, normal bowel sounds, no guarding or rigidity. SPINE: No scoliosis or deformity SKIN: No rashes CENTRAL NERVOUS SYSTEM: No focal deficits, tone is normal in all 4 extremities. EXTREMITIES: There is no peripheral edema. No clubbing, no cyanosis. Peripheral pulses are intact. - Labs CBC & Chem 7: 09/06/17 07:37 09/06/17 07:37 Labs: Abnormal Lab Results - Last 24 Hours (Table) 09/06/17 Range/Units 07:37 Hct 38.8 L (39.0-53.0) % Microbiology - Last 24 Hours (Table) 09/04/17 00:28 Blood Culture - Preliminary Blood No Growth after 48 hours 09/04/17 18:30 Urine Culture - Final Urine,Voided Assessment and Plan Assessment: 1 altered mentation secondary to seizure activity/alcohol effect, recovered. The patient also was found to have acute versus subacute changes on the CAT scan of the brain indicating a stroke and an MRI of the brain that was done , showed abnormal signal involving the right temporoparietal lobes predominantly cortical consistent with ischemic stroke. The patient was placed on aspirin. The patient is also on Keppra for seizures. Neurologist on the case. Recommending a lumbar puncture. I believe it scheduled for today. Carotid Dopplers showed 50-69% stenosis of the carotid artery on the left. The patient is neurologically stable for now. No other complaints otherwise. 2 seizures likely secondary to alcohol 3 alcoholism 4 smoking 5 depression 6 hypertension 7 right carotid artery stenosis, 50-69% Recommendation: Continue antibiotics, patient is presently on room air, relatively asymptomatic, last chest x-ray from 09/05 showed significant improvement in aeration of both lungs. We'll continue to follow. Time with Patient: Less than 30
--- NOTE | 2017-09-06 13:18 | P.PCN ---
Date of Procedure: 09/06/17 Preoperative Diagnosis: Mental status changes Alcohol withdrawal Rule out encephalitis Postoperative Diagnosis: Same as above Procedure(s) Performed: Lumbar puncture Anesthesia: local Surgeon: Zara Monte Pathology: none sent Condition: stable Disposition: floor Description of Procedure: patient in the procedure room sitting position and monitors applied, the back prepped with chlorhexidine , sterile technique, local infiltration of the skin and subcutaneouswith lidocaine 1% 2 mL, then 25 gauge quickie Needle advanced slowly at L4-5 interlaminar space, the intrathecal space was accessed easily. cerebrospinal fluid was clear, with no heme or paresthesia, a total of 2.5 mL of clear cerebrospinal fluid collected in 4 different tubes, the needle removed , Band-Aid applied , patient tolerated the procedure well without any complications, and further management as per her neurologist
[2017-09-06 14:03] LABS: Glucose,CSF 54 mg/dL (40-70); Total Protein,CSF 58 mg/dL (12-60)
--- NOTE | 2017-09-06 14:55 | P.PN ---
Subjective Progress Note Date: 09/06/17 Principal diagnosis: Seizure Is a 67-year-old male continuing to be evaluated by the neurology service. Recall that he presented the [facility] emergency room quite confused. He has a history of heavy daily alcohol use. There may have been some seizure activity at his home. He did have a witnessed seizure in the ER. Ativan resulted symptoms in the ER. He is currently on Keppra 500 mg every 12 hours IV. He is tolerating this well, and there have been no seizures since admission. At the time my exam today he is much more alert and oriented. Recall that his CT did show some possible evidence of a right posterior temporal and parietal subacute infarct. A CTA was done and showed no hemodynamically significant stenosis or significant vascular abnormality. However was quite limited due to motion. An MRI of the brain has been performed. There was an abnormal signal involving the right temporal and parietal lobes predominantly cortical. There was generalized enhancement seen on post contrast images. This may represent acute to subacute ischemia, but given the gyral enhancement an infectious process or enhancing lesion would have to be ruled out 09/05/2017 update: He has no new neurological deficits. There is been no seizure activity since my last exam. Infectious diseases evaluating and has recommended a lumbar puncture. Lumbar puncture is on hold because he was on anticoagulants. 09/07/2007 update: Patient is resting comfortably in bed lying flat status post lumbar puncture. CSF studies are pending. Infectious disease continues to follow. He has had no seizures since my exam yesterday. No new neurological deficits. Objective - Vital Signs Vital signs: Vital Signs Temp 98.3 F 09/06/17 13:30 Pulse 78 09/06/17 13:42 Resp 16 09/06/17 13:30 BP 148/94 09/06/17 13:30 Pulse Ox 96 09/06/17 13:30 Intake & Output 09/05/17 09/06/17 09/06/17 18:59 06:59 18:59 Intake Total 370 180 510 Output Total 400 Balance 370 180 110 Weight 87.2 kg Intake: IV 100 100 levETIRAcetam IV 500 mg 100 100 In Sodium Chloride 0.9% 100 ml @ 400 mls/hr IVPB Q12HR [facility] Rx#:[id number] Intake, IV Titration 370 80 50 Amount Piperacillin-Tazobactam 3 50 50 .375 gm In Dextrose/Water 1 50ml.bag @ 12.5 mls/hr IVPB Q8HR [facility] Rx#: [id number] Sodium Chloride 0.9% 1, 320 80 000 ml @ 40 mls/hr IV . Q24H [facility] Rx#:[id number] Oral 360 Output: Urine 400 Other: Voiding Method Toilet Toilet Toilet Urinal # Voids 2 1 3 # Bowel Movements 2 1 - Constitutional General appearance: Present: cooperative, no acute distress - EENT Eyes: Present: PERRLA. Absent: abnormal pupil, ptosis ENT: Present: hearing grossly normal - Neck Neck: Present: lymphadenopathy, normal ROM. Absent: rigidity - Respiratory Respiratory: negative: prolonged expiration, prolonged inspiration - Cardiovascular Rhythm: regular - Neurologic Neurologic Comment(s): The patient is alert awake and oriented 3. Speech and language are normal. There is no facial asymmetry. Strength is 5 out of 5 in bilateral upper and lower extremities. There is no sensory deficit. Mild bilateral hand tremors, but no seizures are seen. Cranial nerves II through XII are intact globally. - Labs CBC & Chem 7: 09/06/17 07:37 09/06/17 07:37 Labs: Abnormal Lab Results - Last 24 Hours (Table) 09/05/17 09/06/17 Range/Units 06:21 07:37 Hct 38.8 L (39.0-53.0) % HSV I IgG Interpret POSITIVE H (NEGATIVE) HSV II IgG Interpret Equivocal H (NEGATIVE) Microbiology - Last 24 Hours (Table) 09/06/17 12:52 CSF Gram Stain - Preliminary Cerebral Spinal Fluid 09/04/17 00:28 Blood Culture - Preliminary Blood No Growth after 48 hours 09/04/17 18:30 Urine Culture - Final Urine,Voided Assessment and Plan (1) Abnormal CT of brain Current Visit: Yes Status: Acute Code(s): R90.89 - OTH ABNORMAL FINDINGS ON DIAGNOSTIC IMAGING OF CNSL SNOMED Code(s): 928800835 (2) Alcohol abuse Current Visit: Yes Status: Chronic Code(s): F10.10 - ALCOHOL ABUSE, UNCOMPLICATED SNOMED Code(s): 94742210 (3) Alcohol withdrawal Current Visit: Yes Status: Acute Code(s): F10.239 - ALCOHOL DEPENDENCE WITH WITHDRAWAL, UNSPECIFIED SNOMED Code(s): 244049729 (4) Altered mental status Current Visit: Yes Status: Resolved Code(s): R41.82 - ALTERED MENTAL STATUS , UNSPECIFIED SNOMED Code(s): 731728412 (5) Delirium tremens Current Visit: Yes Status: Acute Code(s): F10.231 - ALCOHOL DEPENDENCE WITH WITHDRAWAL DELIRIUM SNOMED Code(s): 1003380 (6) Hyperammonemia Current Visit: Yes Status: Acute Code(s): E72.20 - DISORDER OF UREA CYCLE METABOLISM, UNSPECIFIED SNOMED Code(s): 3949496 (7) Hypertension Current Visit: Yes Status: Chronic Code(s): I10 - ESSENTIAL (PRIMARY) HYPERTENSION SNOMED Code(s): 09906254 (8) Seizure Current Visit: Yes Status: Acute Code(s): R56.9 - UNSPECIFIED CONVULSIONS SNOMED Code(s): 26458379 (9) CVA (cerebral vascular accident) Current Visit: Yes Status: Acute Code(s): I63.9 - CEREBRAL INFARCTION, UNSPECIFIED SNOMED Code(s): 112337660 Plan: This patient's altered mental status was likely from metabolic encephalopathy from elevated ammonia levels and alcohol withdrawals. However, he did have an abnormal initial CT. his MRI is consistent with possibly 2 etiologies. His right temporal and parietal findings would be consistent with an acute to subacute stroke. He will continue aspirin 81 mg and Lipitor. The gyral enhancement seen on post contrast images may represent an infectious process versus an enhancing lesion. Infectious disease has recommended a lumbar puncture and that is pending. For the area of enhancement we do recommend repeat MRI in 3-6 months. We will follow him in an outpatient setting and repeat this study. In the meantime we will keep him on 500 mg Keppra PO every 12 hours. We will continue to follow. Otherwise continue to manage medically. Strongly recommend counseling in alcohol cessation. Note that his CTA and carotid Doppler will both limited studies due to patient movement. However, there may be some flow-limiting stenosis. Recommend possible consultation with cardiovascular specialty. 09/07/2007 update: No change in his neurological status. We'll make no change in the treatment plan. As above we have awaiting CSF studies and is disease recommendations. I have performed a history and physical on the above patient. I have reviewed the above note, and agree.
[2017-09-06 15:18] LABS: Appearance,CSF Clear; CSF Tube Number 3; CSF Tube Volume 0.5; Red Blood Cell,CSF 81 u/L (0-10)
[2017-09-06 15:19] LABS: Nucleated Cells, CSF 1 u/L (0-5); Red Blood Cell, CSF Crenated 2 %; Red Blood Cell, CSF Fresh 95 %
--- NOTE | 2017-09-06 17:15 | EEG ---
ELECTROENCEPHALOGRAM REPORT DATE OF SERVICE: 09/04/2017. REASON FOR TESTING: Seizure. CURRENT ANTI-EPILEPTIC MEDICATION: Keppra. DESCRIPTION OF THE PROCEDURE: This EEG was performed using a 21-channel digital electroencephalograph, following international 10-20 system. DESCRIPTION OF THE RECORDING: From the beginning of the tracing, and with the patient's eyes closed, the background rhythm was mostly consisting of 9-10 Hz alpha frequency in the posterior occipital leads. No obvious asymmetry is seen. Photic stimulation was performed with no driving response seen. No pathological waves were elicited. Hyperventilation was not performed. The patient does reach stage II of sleep during the tracing and occasional sleep spindles were seen. No epileptiform discharges were seen. His EKG lead showed a regular rate and rhythm. INTERPRETATION: This asleep and awake EEG can be considered within normal limits. There was no asymmetry seen. No epileptiform discharges were noticed. The absence of epileptiform discharges does not rule out the diagnosis of epilepsy; therefore clinical correlation is recommended. MMVERNON / EMELIN: [id number] /
[2017-09-06] MEDS: ATORVASTATIN 20 MG TAB PO SCH (21:48)
[2017-09-07 07:47] LABS: Anion Gap 11 mmol/L; Blood Urea Nitrogen 15 mg/dL (9-20); Calcium 9.2 mg/dL (8.4-10.2); Carbon Dioxide 30 mmol/L (22-30); Chloride 102 mmol/L (98-107); Glucose 91 mg/dL (74-99); Magnesium 1.7 mg/dL (1.6-2.3); Phosphorus 4.1 mg/dL (2.5-4.5); Potassium 4.2 mmol/L (3.5-5.1); Sodium 143 mmol/L (137-145)
[2017-09-07] MEDS: NICOTINE 14MG/24HR PATCH TRANSDERM SCH (07:49)
[2017-09-07] MEDS: ASPIRIN 81 MG PO SCH (07:50)
[2017-09-07] MEDS: PANTOPRAZOLE 40 MG TABLET PO SCH (07:50)
[2017-09-07] MEDS: LACTULOSE 20 GM/30 ML CUP PO SCH ×2 (07:50→20:55)
[2017-09-07] MEDS: levETIRAcetam IV 500 MG in SODIUM CHLORIDE 0.9% 100 ML IVPB SCH ×2 (07:52→20:55)
[2017-09-07 07:57] LABS: Basophils % (A) 0 %; Eosinophils # (A) 0.1 k/uL (0-0.7); Eosinophils % (A) 2 %; HCT 40.7 % (39.0-53.0); HGB 13.4 gm/dL (13.0-17.5); Lymphocytes # (A) 1.3 k/uL (1.0-4.8); Lymphocytes % (A) 19 %; MCH 30.5 pg (25.0-35.0); MCHC 32.8 g/dL (31.0-37.0); MCV 92.7 fL (80.0-100.0); Mean Platelet Volume 7.3; Monocytes # (A) 0.6 k/uL (0-1.0); Monocytes % (A) 8 %; Neutrophils # (A) 4.7 k/uL (1.3-7.7); Neutrophils % (A) 68 %; Platelet Count 161 k/uL (150-450); RBC 4.39 m/uL (4.30-5.90); RDW 13.9 % (11.5-15.5); WBC 6.9 k/uL (3.8-10.6)
[2017-09-07] MEDS: IPRATROPIUM-ALBUTEROL 3 ML NEB INHALATION SCH ×3 (08:47→20:15)
[2017-09-07] MEDS: PIPERACILLIN-TAZOBACTAM 3.375 GM in DEXTROSE/WATER 1 50ML.BAG IVPB SCH ×3 (10:38→23:57)
--- NOTE | 2017-09-07 15:17 | P.PN ---
Subjective Progress Note Date: 09/07/17 Patient is a 67-year-old male who is being followed by the neurology service for seizure. Patient has a history of alcohol abuse with heavy daily drinking. Reportedly, patient may have had some seizure activity in the home. Patient did have a witnessed seizure in the emergency room. Patient is currently on Keppra 500 mg every 12 hours IV. Patient has had no seizure activity reported since admission. Computed tomography scan did show some possible evidence of right posterior temporal and parietal subacute infarct. CTA was done which showed no hemodynamically significant stenosis or significant vascular abnormality. CTA study was limited, therefore vascular consult would be appreciated. MRI of the brain was done and showed abnormal signal involving right temporal parietal lobes predominantly cortical. There was generalized enhancement seen on post contrast images that may represent acute to subacute ischemia. Due to gyral enhancement, infectious disease was consulted and a lumbar puncture was performed. CSF studies are pending. Infectious diseases on consult. At the time of my evaluation, patient is resting comfortably in bed and appears to be in no acute distress. Objective - Vital Signs Vital signs: Vital Signs Temp 98.0 F 09/07/17 14:10 Pulse 69 09/07/17 14:10 Resp 16 09/07/17 14:10 BP 131/87 09/07/17 14:10 Pulse Ox 99 09/07/17 14:10 Intake & Output 09/06/17 09/07/17 09/07/17 18:59 06:59 18:59 Intake Total 510 1460 Output Total 800 Balance -290 1460 Weight 87.2 kg Intake: IV 100 100 levETIRAcetam IV 500 mg 100 100 In Sodium Chloride 0.9% 100 ml @ 400 mls/hr IVPB Q12HR [facility] Rx#:[id number] Intake, IV Titration 50 370 Amount Piperacillin-Tazobactam 3 50 50 .375 gm In Dextrose/Water 1 50ml.bag @ 12.5 mls/hr IVPB Q8HR [facility] Rx#: [id number] Sodium Chloride 0.9% 1, 320 000 ml @ 40 mls/hr IV . Q24H [facility] Rx#:[id number] Oral 360 990 Output: Urine 800 Other: Voiding Method Toilet Toilet Toilet Urinal Urinal Urinal # Voids 3 2 2 # Bowel Movements 1 - Exam PHYSICAL EXAM: GENERAL APPEARANCE: Patient is a well-developed, male who appears to be in no acute distress. HEENT: Normocephalic, atraumatic, no facial asymmetry is seen. Neck is supple with no masses felt. CARDIOVASCULAR: Regular rate and rhythm. ABDOMEN: Nontender, nondistended. EXTREMITIES: Show no edema or clubbing. NEUROLOGICAL EXAM: Patient is awake, alert, and oriented 3. Speech and language are normal. Strength is full in all 4 extremities. Sensory exam is normal to light touch in all 4 extremities. No facial asymmetry seen on cranial nerve testing. No tremors or seizure-like activity noted. - Labs CBC & Chem 7: 09/07/17 06:55 09/07/17 06:55 Labs: Abnormal Lab Results - Last 24 Hours (Table) 09/06/17 Range/Units 12:52 CSF RBC 81 H (0-10) u/L Microbiology - Last 24 Hours (Table) 09/06/17 12:52 CSF Gram Stain - Preliminary Cerebral Spinal Fluid CSF Culture - Preliminary 09/04/17 00:28 Blood Culture - Preliminary Blood No Growth after 72 hours Assessment and Plan Plan: Impression: 1. Abnormal MRI of the brain 2. Seizure 3. Alcohol abuse/withdrawal 4. Hypertension Recommendations: The patient has not had any further seizures since admission. Patient's altered mental status likely from metabolic encephalopathy related to elevated ammonia levels. Patient did have abnormal CT with an abnormal MRI following. Infectious disease was consulted. There is questionable right temporal and parietal acute versus subacute stroke findings. I recommend to continue aspirin 81 mg and statin therapy. Await infectious disease input on cerebrospinal fluid studies. Continue Keppra 500 mg every 12 hours. Await vascular consult for questionable stenosis due to limited studies of the CTA and carotid Doppler. Patient can follow up in our office as an outpatient and we will repeat MRI in 3-6 months. Continue neurological checks. Continue seizure precautions. I will continue to follow with you. Further recommendations to follow. I performed an examination of the patient and discussed the management with the ANIMAL CARE TAKER. I have reviewed the ANIMAL CARE TAKER notes and agree with the findings and plan of care.
[2017-09-07] MEDS: THIAMINE 100 MG TAB PO SCH ×2 (15:26→19:22)
[2017-09-07] MEDS: MULTIVITAMINS, THERA 1 EACH TAB PO SCH (15:26)
--- NOTE | 2017-09-07 16:09 | P.PN ---
Subjective Progress Note Date: 09/07/17 Principal diagnosis: Altered mental status secondary to seizure activity This is a 67-year-old gentleman with a known history of alcohol abuse, previous suicidal ideations, severe depression, recent diagnosis of perianal abscess in June 2017, chronic and ongoing tobacco dependence. He follows with Dr. Singer is his primary care physician. He was brought into the emergency room earlier this morning with altered mental status. He had been with a significant other walking to a store and he felt very shaky and collapsed to the ground. It was unclear if there was seizure activity at that time or not. He was able to state he was drinking quite heavily but has not drank in 24 hours and was trying to stop. After arriving to the emergency room he did have a seizure and was postictal. His son did not know coming to the emergency room and states that he does drink quite heavily on a daily basis. He also stated he is not known as father to have any seizures in the past. EtOH level XIII. Urine drug screen is negative. Computed tomography scan of the brain revealed acute to subacute infarct within the right posterior temporal and parietal lobes of the right MCA. There is no evidence of hemorrhagic transformation or acute intracranial hemorrhage. There was noted opacification in the right maxillary sinus and overall paranasal sinus disease. CT angiogram of the head and neck revealed no hemodynamically significant stenosis or focal occlusion. Findings of right-sided temporoparietal hypoattenuation in the greenwood matter junction favoring acute to subacute infarct are less well appreciated on this exam given the technique. The patient is seen in consultation today in the emergency room. He is currently awake and alert. He knows that he is in the hospital. Somewhat of a poor historian. He denies any significant pain or headache. No shortness of breath, cough or congestion. He is moving all 4 extremities and is currently strong equally. Pupils are equal and reactive to light. Chest x- ray reveals evidence of chronic changes but no acute pulmonary process. He now has a T-max of 101.3. He has been hemodynamically stable, somewhat hypertensive. He is maintaining O2 saturations in the 90s on 4 L/m per nasal cannula. White count 12.6. Hemoglobin 13.6. Sodium 147. Bicarb 21. Creatinine 0.77. AST 64. Ammonia 59. On 09/04/2017, the patient is fully awake and alert. No signs of any delirium tremens. He is moving all 4 extremities without any limitation despite the previous description it was given on the CAT scan of the brain that showed some acute versus subacute infarction along the right MCA distribution. The patient has symmetrical motor function and power. No altered mentation. No facial asymmetry. No change in his speech. He did have to bouts of seizures and currently is on Keppra. No seizure since he arrived into the intensive care unit. Hemodynamically stable. He is afebrile. No other significant events over the past 24 hours. The patient is being seen by neurology today. On today's evaluation of 09/05/2017, the patient is out of the intensive care unit. The patient did not have any further episode of seizure. The patient is currently awake and alert. No headaches. No altered mentation. No seizure activity. No focal neurological deficit. Carotid Dopplers were noted. The patient was found to have 50-69% stenosis of the proximal left internal carotid artery. The patient remains on aspirin. He is currently on room air oxygen. A chest x-ray from today showed improved aeration of the lung bases bilaterally. No fever. No chills. No other issues otherwise for now. On 09/06/2017, patient is doing relatively well, seen by many consultants, and I believe he is scheduled to undergo lumbar puncture today. Patient remains on seizure precautions, labs were noted to be relatively normal. On 09/07/2017 patient seen in follow-up on medical surgical floor. He had a lumbar puncture yesterday, and so far CSF culture and Gram stain have not resulted yet. Urine and blood culture remained negative. No febrile episodes in the last 24 hours, patient is on room air, with a pulse ox of 99%. He is afebrile, vital signs are stable. Lung sounds are clear to auscultation, he is awake alert and oriented 3, no seizure activity. No signs of delirium tremens. Remains on Zosyn, for empiric antibiotic coverage, nebulized treatments, ID service is following. Overall improving, no acute events overnight. Today's lab work was negative for any evidence of leukocytosis, electrolytes and renal profile are within normal limits, and the physical exam revealed patient, comfortable, and in no acute distress. He states he is awaiting to be discharged home today Objective - Vital Signs Vital signs: Vital Signs Temp 98.0 F 09/07/17 14:10 Pulse 62 09/07/17 15:23 Resp 16 09/07/17 15:23 BP 131/87 09/07/17 14:10 Pulse Ox 99 09/07/17 14:10 Intake & Output 09/06/17 09/07/17 09/07/17 18:59 06:59 18:59 Intake Total 510 1460 Output Total 800 400 Balance -290 1460 -400 Weight 87.2 kg 87.2 kg Intake: IV 100 100 levETIRAcetam IV 500 mg 100 100 In Sodium Chloride 0.9% 100 ml @ 400 mls/hr IVPB Q12HR [facility] Rx#:[id number] Intake, IV Titration 50 370 Amount Piperacillin-Tazobactam 3 50 50 .375 gm In Dextrose/Water 1 50ml.bag @ 12.5 mls/hr IVPB Q8HR [facility] Rx#: [id number] Sodium Chloride 0.9% 1, 320 000 ml @ 40 mls/hr IV . Q24H [facility] Rx#:[id number] Oral 360 990 Output: Urine 800 400 Other: Voiding Method Toilet Toilet Toilet Urinal Urinal Urinal # Voids 3 2 2 # Bowel Movements 1 - Exam GENERAL EXAM: Physical exam revealed a 67-year-old white male in no distress. HEAD: Normocephalic. EYES: Normal reaction of pupils, equal size. NOSE: Clear with pink turbinates. THROAT: No erythema or exudates. NECK: No masses, no JVD. CHEST: No chest wall deformity. LUNGS: Equal air entry with no crackles, wheeze, rhonchi or dullness. CVS: S1 and S2 normal with no audible murmur, regular rhythm. ABDOMEN: No hepatosplenomegaly, normal bowel sounds, no guarding or rigidity. SPINE: No scoliosis or deformity SKIN: No rashes CENTRAL NERVOUS SYSTEM: No focal deficits, tone is normal in all 4 extremities. EXTREMITIES: There is no peripheral edema. No clubbing, no cyanosis. Peripheral pulses are intact. - Labs CBC & Chem 7: 09/07/17 06:55 09/07/17 06:55 Labs: Microbiology - Last 24 Hours (Table) 09/06/17 12:52 CSF Gram Stain - Preliminary Cerebral Spinal Fluid CSF Culture - Preliminary 09/04/17 00:28 Blood Culture - Preliminary Blood No Growth after 72 hours Assessment and Plan Plan: Assessment: 1 altered mentation secondary to seizure activity/alcohol effect, recovered. The patient also was found to have acute versus subacute changes on the CAT scan of the brain indicating a stroke and an MRI of the brain that was done , showed abnormal signal involving the right temporoparietal lobes predominantly cortical consistent with ischemic stroke. The patient was placed on aspirin. The patient is also on Keppra for seizures. Neurologist on the case. Recommending a lumbar puncture. I believe it scheduled for today. Carotid Dopplers showed 50-69% stenosis of the carotid artery on the left. The patient is neurologically stable for now. No other complaints otherwise. 2 seizures likely secondary to alcohol 3 alcoholism 4 smoking 5 depression 6 hypertension 7 right carotid artery stenosis, 50-69% Recommendation: Continue current plan of treatment, continue antibiotics, CSF studies are pending, blood and urine cultures remain negative, patient denies any fever or chills, no difficulty breathing, lung sounds are clear to auscultation. Remains on room air, with a pulse ox 99%. From pulmonary standpoint patient is stable for discharge once cleared by other consultants. I performed a history & physical examination of the patient and discussed their management with my nurse practitioner, Hannah Milton. I reviewed the nurse practitioner's note and agree with the documented findings and plan of care. Lung sounds are clear. The findings and the impression was discussed with the patient. I attest to the documentation by the nurse practitioner. Time with Patient: Less than 30
--- NOTE | 2017-09-07 16:12 | PN ---
PROGRESS NOTE DATE OF SERVICE: 09/07/2017. REASON FOR FOLLOWUP: 1. Abnormal MRI with question of encephalitis. 2. Fever, possible aspiration pneumonitis. INTERVAL HISTORY: The patient is afebrile. The patient denies having any headache. The patient denies having any chest pain, shortness of breath or cough. No abdominal pain. No diarrhea. Wants to go home. EXAMINATION: Blood pressure 131/87 with a pulse of 69, temperature 98. He is 99% on room air. General description is an elderly male up in the bed in no distress. RESPIRATORY SYSTEM: Unlabored breathing. Decreased breath sounds at bases. No wheeze. HEART: S1, S2. Regular rate and rhythm. ABDOMEN: Soft, no tenderness. EXTREMITIES: No edema of the feet. LABS: Hemoglobin 13.4, white count 6.9 with a BUN of 15, creatinine 0.79. He did have LP done yesterday. The fluid was clear, colorless. Only was 1. RBC was 95, glucose 54, protein 58. The Gram stain was with gram-positive cocci. HSV DNA by PCR is negative. DIAGNOSTIC IMPRESSION AND PLAN: 1. Patient admitted to the hospital with syncopal episode. He did have abnormality of the temporal lobe on the MRI with concern for possible stroke versus encephalitis. The patient's HSV DNA by PCR in the CSF is negative to make it unlikely to be herpes encephalitis. Glucose and protein mildly elevated. Clinically doubt bacterial meningitis either. The cultures more likely contaminated. No need for any systemic antibiotic therapy. 2. Patient did have slight fever, could be related to his alcohol withdrawal or possible aspiration pneumonitis, currently on Zosyn. That can be transitioned to a short course of oral Augmentin to finish course of therapy. Continue supportive care. MMODL / IJN: [id number] /
[2017-09-07] MEDS: SODIUM CHLORIDE 0.9% 1,000 ML IV SCH (19:22)
[2017-09-07] MEDS: ATORVASTATIN 20 MG TAB PO SCH (20:55)
--- NOTE | 2017-09-07 21:24 | P.PN ---
Subjective This is a 67-year-old gentleman with a known history of alcohol abuse, previous suicidal ideations, severe depression, recent diagnosis of perianal abscess in June 2017, chronic and ongoing tobacco dependence. who was admitted with AMS and siezure activity , pt has been evaluated by neurologist and pulmonlogist and had extensive w/u for possible stroke and encephalilits including MRI and LP , it was thought his Mental status changed was due to alcohol withdrawal and high ammonia, his mental status changes is improved significantly , and today he is alert awake and oriented , and calm with no distress CD showed Left carotid stenosis of 50-69 % and neurologist recommended cardiovascular evalutation and LP was showing gr +ve cocci, Objective - Vital Signs Vital signs: Vital Signs Temp 98.0 F 09/07/17 14:10 Pulse 78 09/07/17 20:23 Resp 16 09/07/17 15:23 BP 131/87 09/07/17 14:10 Pulse Ox 99 09/07/17 14:10 Intake & Output 09/07/17 09/07/17 09/08/17 06:59 18:59 06:59 Intake Total 1460 Output Total 400 Balance 1460 -400 Weight 87.2 kg Intake: IV 100 levETIRAcetam IV 500 mg 100 In Sodium Chloride 0.9% 100 ml @ 400 mls/hr IVPB Q12HR [facility] Rx#:[id number] Intake, IV Titration 370 Amount Piperacillin-Tazobactam 3 50 .375 gm In Dextrose/Water 1 50ml.bag @ 12.5 mls/hr IVPB Q8HR [facility] Rx#: [id number] Sodium Chloride 0.9% 1, 320 000 ml @ 40 mls/hr IV . Q24H [facility] Rx#:[id number] Oral 990 Output: Urine 400 Other: Voiding Method Toilet Toilet Urinal Urinal # Voids 2 2 - Exam HEENT: Head is atraumatic, normocephalic. Pupils equal, round. Neck is supple. There is no elevated jugular venous pressure. HEART EXAMINATION: Heart S1-S2, no murmur is heard CHEST EXAMINATION: Lungs reveal no expiratory wheezes throughout otherwise essentially clear. ABDOMEN: Soft, nontender. Bowel sounds are heard. No organomegaly noted. EXTREMITIES: 2+ peripheral pulses with no evidence of peripheral edema and no calf tenderness noted. NEUROLOGIC patient is awake, alert and oriented -3. - Labs CBC & Chem 7: 09/07/17 06:55 09/07/17 06:55 Labs: Microbiology - Last 24 Hours (Table) 09/06/17 12:52 CSF Gram Stain - Preliminary Cerebral Spinal Fluid CSF Culture - Preliminary 09/04/17 00:28 Blood Culture - Preliminary Blood No Growth after 72 hours Assessment and Plan Assessment: -altered mentation secondary to seizure activity/alcohol effect, recovered. -possible stroke -seizures likely secondary to alcohol - alcoholism - smoking - hypertension Plan: Continue aspirin. carotid Dopplers: Left ICA stenosis of 50-69% cardiovascular team were contacted and they recommended outpt referral to their office. [facility] for seizures. Neurology evaluation is appreciated. no signs of delirium tremens, LP CSF culture was positive and ID team is following the case and today they confirmed pt does not need antibiotic and can be discharged home pt mental status has returned to baseline, c/w DVT px with scd, pt is mobile
--- NOTE | 2017-09-07 22:22 | CONS ---
DATE OF CONSULTATION: 09/07/2017 This is a 67-year-old gentleman who has been admitted to [facility] with multiple problems. The patient has been admitted with history of seizure, history of generalized tonic clonic seizures, history of withdrawal, acute delirium tremors. The patient had a stroke workup including carotid ultrasound, which showed right side 50% to 79% stenosis. The patient had a CTA, which showed no hemodynamically significant stenosis. The patient had MRI of the foot, which showed a right-sided temporoparietal acute infarct. MEDICAL HISTORY: History of smoking, history of drinking. EXAMINATION: Patient was seen in his room. His vital signs are stable and alert. He has no history of TIA or amaurosis fugax or any motor deficit. On examination, the patient has strong motor function upper and lower extremity. Speech is normal. NECK: Supple. CHEST: Clear to auscultation. ABDOMEN: Soft. Femoral pulses are present. Discussed with the patient. The patient wants to go home and the patient had a spinal tap, which was positive and Infectious Disease on consult. At this point, there is no critical stenosis noted by CT angiogram. Ultrasound showed 50% to 69% stenosis on the right side. Recommendation is to have the patient be on antiplatelet therapy. If the patient is stable and he wants to go home, I can follow in my office on Wednesday and we will follow with you. PATRICIA / EMELIN: [id number] / MTDD
[2017-09-08] MEDS: LACTULOSE 20 GM/30 ML CUP PO SCH (07:01)
[2017-09-08] MEDS: PIPERACILLIN-TAZOBACTAM 3.375 GM in DEXTROSE/WATER 1 50ML.BAG IVPB SCH (07:01)
[2017-09-08] MEDS: ASPIRIN 81 MG PO SCH (07:02)
[2017-09-08] MEDS: PANTOPRAZOLE 40 MG TABLET PO SCH (07:02)
[2017-09-08] MEDS: NICOTINE 14MG/24HR PATCH TRANSDERM SCH (07:05)
[2017-09-08] MEDS: IPRATROPIUM-ALBUTEROL 3 ML NEB INHALATION SCH ×2 (07:11→12:55)
[2017-09-08 07:31] LABS: Basophils % (A) 0 %; Eosinophils # (A) 0.2 k/uL (0-0.7); Eosinophils % (A) 2 %; HGB 12.6 gm/dL (13.0-17.5); Lymphocytes # (A) 1.1 k/uL (1.0-4.8); Lymphocytes % (A) 14 %; MCH 29.8 pg (25.0-35.0); MCHC 32.4 g/dL (31.0-37.0); MCV 91.9 fL (80.0-100.0); Mean Platelet Volume 8.2; Monocytes # (A) 0.8 k/uL (0-1.0); Monocytes % (A) 10 %; Neutrophils # (A) 5.7 k/uL (1.3-7.7); Neutrophils % (A) 72 %; Platelet Count 167 k/uL (150-450); RBC 4.24 m/uL (4.30-5.90); RDW 13.7 % (11.5-15.5); WBC 7.9 k/uL (3.8-10.6)
[2017-09-08 07:40] LABS: Anion Gap 12 mmol/L; Blood Urea Nitrogen 17 mg/dL (9-20); Calcium 9.1 mg/dL (8.4-10.2); Carbon Dioxide 27 mmol/L (22-30); Chloride 105 mmol/L (98-107); Glucose 93 mg/dL (74-99); Magnesium 1.6 mg/dL (1.6-2.3); Phosphorus 3.5 mg/dL (2.5-4.5); Potassium 3.9 mmol/L (3.5-5.1); Sodium 144 mmol/L (137-145)
[2017-09-08 08:06] VITALS: BP 149/85; RESP 20; TEMP 98.1
[2017-09-08] MEDS: levETIRAcetam IV 500 MG in SODIUM CHLORIDE 0.9% 100 ML IVPB SCH (08:48)
--- NOTE | 2017-09-08 11:50 | PN ---
PROGRESS NOTE DATE OF SERVICE: 09/08/2017 REASON FOR FOLLOWUP: 1. Abnormal MRI with question of possible encephalitis. 2. Fever, possible aspiration pneumonitis or related to . INTERVAL HISTORY: The patient is afebrile. He has been breathing comfortably. Denies having any headache. Patient denies having any chest pain, shortness of breath or cough. No abdominal pain. No diarrhea and he is anxious to go home. PHYSICAL EXAMINATION: Blood pressure is 149/85, pulse of 64, temperature of 98.1, he is 100% on room air. General description is an elderly male, lying in bed in no distress. RESPIRATORY SYSTEM: Unlabored breathing, clear to auscultation anteriorly. HEART: S1, S2. Regular rate and rhythm. ABDOMEN: Soft, no tenderness. LABS: Hemoglobin 12.6, white count 7.9, BUN of 17, creatinine 0.81. The recent HSV DNA by PCR is negative. CSF culture report for gram-positive blood culture negative. DIAGNOSTIC IMPRESSION/PLAN: 1. Patient with abnormal MRI with question of possible encephalitis. However, his HSV DNA by PCR is negative and this was pending. Clinically doubt HSV encephalitis. 2. Positive gram stain on the CSF more likely contamination as the culture was negative and the biochemical marker on the recent exam was not suggestive of meningitis. 3. The patient did have a fever during this admission initially with question of possible aspiration pneumonitis. The patient did have a syncopal episode. The followup x-rays and culture have been negative. Has received about 5 days of antibiotic, should be more than enough; hence, no need for antibiotic on discharge. MMODL / IJN: [id number] /
[2017-09-08] MEDS: MULTIVITAMINS, THERA 1 EACH TAB PO SCH (12:51)
[2017-09-08] MEDS: THIAMINE 100 MG TAB PO SCH (12:51)
[2017-09-08 13:01] VITALS: PULSE 68
--- NOTE | 2017-09-08 13:51 | P.PN ---
Subjective Progress Note Date: 09/08/17 Principal diagnosis: Altered mental status secondary to seizure activity This is a 67-year-old gentleman with a known history of alcohol abuse, previous suicidal ideations, severe depression, recent diagnosis of perianal abscess in June 2017, chronic and ongoing tobacco dependence. He follows with Dr. Singer is his primary care physician. He was brought into the emergency room earlier this morning with altered mental status. He had been with a significant other walking to a store and he felt very shaky and collapsed to the ground. It was unclear if there was seizure activity at that time or not. He was able to state he was drinking quite heavily but has not drank in 24 hours and was trying to stop. After arriving to the emergency room he did have a seizure and was postictal. His son did not know coming to the emergency room and states that he does drink quite heavily on a daily basis. He also stated he is not known as father to have any seizures in the past. EtOH level XIII. Urine drug screen is negative. Computed tomography scan of the brain revealed acute to subacute infarct within the right posterior temporal and parietal lobes of the right MCA. There is no evidence of hemorrhagic transformation or acute intracranial hemorrhage. There was noted opacification in the right maxillary sinus and overall paranasal sinus disease. CT angiogram of the head and neck revealed no hemodynamically significant stenosis or focal occlusion. Findings of right-sided temporoparietal hypoattenuation in the greenwood matter junction favoring acute to subacute infarct are less well appreciated on this exam given the technique. The patient is seen in consultation today in the emergency room. He is currently awake and alert. He knows that he is in the hospital. Somewhat of a poor historian. He denies any significant pain or headache. No shortness of breath, cough or congestion. He is moving all 4 extremities and is currently strong equally. Pupils are equal and reactive to light. Chest x- ray reveals evidence of chronic changes but no acute pulmonary process. He now has a T-max of 101.3. He has been hemodynamically stable, somewhat hypertensive. He is maintaining O2 saturations in the 90s on 4 L/m per nasal cannula. White count 12.6. Hemoglobin 13.6. Sodium 147. Bicarb 21. Creatinine 0.77. AST 64. Ammonia 59. On 09/04/2017, the patient is fully awake and alert. No signs of any delirium tremens. He is moving all 4 extremities without any limitation despite the previous description it was given on the CAT scan of the brain that showed some acute versus subacute infarction along the right MCA distribution. The patient has symmetrical motor function and power. No altered mentation. No facial asymmetry. No change in his speech. He did have to bouts of seizures and currently is on Keppra. No seizure since he arrived into the intensive care unit. Hemodynamically stable. He is afebrile. No other significant events over the past 24 hours. The patient is being seen by neurology today. On today's evaluation of 09/05/2017, the patient is out of the intensive care unit. The patient did not have any further episode of seizure. The patient is currently awake and alert. No headaches. No altered mentation. No seizure activity. No focal neurological deficit. Carotid Dopplers were noted. The patient was found to have 50-69% stenosis of the proximal left internal carotid artery. The patient remains on aspirin. He is currently on room air oxygen. A chest x-ray from today showed improved aeration of the lung bases bilaterally. No fever. No chills. No other issues otherwise for now. On 09/06/2017, patient is doing relatively well, seen by many consultants, and I believe he is scheduled to undergo lumbar puncture today. Patient remains on seizure precautions, labs were noted to be relatively normal. On 09/07/2017 patient seen in follow-up on medical surgical floor. He had a lumbar puncture yesterday, and so far CSF culture and Gram stain have not resulted yet. Urine and blood culture remained negative. No febrile episodes in the last 24 hours, patient is on room air, with a pulse ox of 99%. He is afebrile, vital signs are stable. Lung sounds are clear to auscultation, he is awake alert and oriented 3, no seizure activity. No signs of delirium tremens. Remains on Zosyn, for empiric antibiotic coverage, nebulized treatments, ID service is following. Overall improving, no acute events overnight. Today's lab work was negative for any evidence of leukocytosis, electrolytes and renal profile are within normal limits, and the physical exam revealed patient, comfortable, and in no acute distress. He states he is awaiting to be discharged home today. On 09/08/2017 patient seen in follow-up. Stable, no acute complaints, awake, alert, oriented 3. Lung sounds are clear, currently on room air, with O2 sat at 100%, vital signs are stable, afebrile. No signs of delirium, denies any chest pain, denies any dyspnea or coughing. No vomiting or diarrhea. CSF culture had rare gram-positive cocci in pairs, ID service following, and this was thought to be related to a contaminated specimen. No fever or chills, no evidence of leukocytosis, and ABC 7.9, HSV-1 and 2 DNA PCR were not detected, and the patient ruled out for herpes encephalitis. From pulmonary standpoint he is here for discharge today pending clearance by other consultants. Objective - Vital Signs Vital signs: Vital Signs Temp 98.1 F 09/08/17 07:15 Pulse 62 09/08/17 08:00 Resp 20 09/08/17 08:00 BP 149/85 09/08/17 07:15 Pulse Ox 100 09/08/17 07:15 Intake & Output 09/07/17 09/08/17 09/08/17 18:59 06:59 18:59 Intake Total 1460 Output Total 400 Balance -400 1460 Weight 87.2 kg Intake: IV 100 levETIRAcetam IV 500 mg 100 In Sodium Chloride 0.9% 100 ml @ 400 mls/hr IVPB Q12HR [facility] Rx#:[id number] Intake, IV Titration 370 Amount Piperacillin-Tazobactam 3 50 .375 gm In Dextrose/Water 1 50ml.bag @ 12.5 mls/hr IVPB Q8HR [facility] Rx#: [id number] Sodium Chloride 0.9% 1, 320 000 ml @ 40 mls/hr IV . Q24H [facility] Rx#:[id number] Oral 990 Output: Urine 400 Other: Voiding Method Toilet Toilet Toilet Urinal Urinal Urinal # Voids 2 1 - Exam GENERAL EXAM: Physical exam revealed a 67-year-old white male in no distress. HEAD: Normocephalic. EYES: Normal reaction of pupils, equal size. NOSE: Clear with pink turbinates. THROAT: No erythema or exudates. NECK: No masses, no JVD. CHEST: No chest wall deformity. LUNGS: Equal air entry with no crackles, wheeze, rhonchi or dullness. CVS: S1 and S2 normal with no audible murmur, regular rhythm. ABDOMEN: No hepatosplenomegaly, normal bowel sounds, no guarding or rigidity. SPINE: No scoliosis or deformity SKIN: No rashes CENTRAL NERVOUS SYSTEM: No focal deficits, tone is normal in all 4 extremities. EXTREMITIES: There is no peripheral edema. No clubbing, no cyanosis. Peripheral pulses are intact. - Labs CBC & Chem 7: 09/08/17 06:56 09/08/17 06:56 Labs: Abnormal Lab Results - Last 24 Hours (Table) 09/08/17 Range/Units 06:56 RBC 4.24 L (4.30-5.90) m/uL Hgb 12.6 L (13.0-17.5) gm/dL Microbiology - Last 24 Hours (Table) 09/04/17 00:28 Blood Culture - Preliminary Blood No Growth after 96 hours 09/06/17 12:52 CSF Gram Stain - Preliminary Cerebral Spinal Fluid CSF Culture - Preliminary Assessment and Plan Plan: Assessment: 1 altered mentation secondary to seizure activity/alcohol effect, recovered. The patient also was found to have acute versus subacute changes on the CAT scan of the brain indicating a stroke and an MRI of the brain that was done , showed abnormal signal involving the right temporoparietal lobes predominantly cortical consistent with ischemic stroke. The patient was placed on aspirin. The patient is also on Keppra for seizures. Neurologist on the case. LP was done, and the CSF culture was positive for rare gram-positive cocci in pairs, although this is believed to be contaminated. Carotid Dopplers showed 50-69% stenosis of the carotid artery on the left. Patient was seen by vascular surgery and will be followed up on outpatient basis for his left carotid stenosis. The patient is neurologically stable for now. No other complaints otherwise. 2 seizures likely secondary to alcohol 3 alcoholism 4 smoking 5 depression 6 hypertension 7 right carotid artery stenosis, 50-69% Recommendation: Patient is stable from pulmonary standpoint, denies any chest pain, denies any dyspnea, on room air, vital signs are stable, no fever or chills, no chest pain. No breakthrough seizures, no evidence of delirium. CSF culture was thought to be contaminated, no need for antibiotic on discharge per ID service. I performed a history & physical examination of the patient and discussed their management with my nurse practitioner, Hannah Milton. I reviewed the nurse practitioner's note and agree with the documented findings and plan of care. Lung sounds are clear. The findings and the impression was discussed with the patient. I attest to the documentation by the nurse practitioner. Time with Patient: Less than 30
--- NOTE | 2017-09-08 15:26 | P.DS ---
Providers Date of admission: 09/03/17 13:01 Attending physician: Mitch Costa Consults: 09/03/17 13:05 Consult Physician Urgent Consulting Provider: Jadyn Ruelas Consult Reason/Comments: seizure, mental status changes Do you want consulting provider notified?: Yes 09/03/17 13:24 Consult Physician Stat Consulting Provider: Brianna Patel Consult Reason/Comments: icu mgmt Do you want consulting provider notified?: Yes 09/04/17 12:29 Consult Physician Urgent Consulting Provider: Marlen Osuna Consult Reason/Comments: Abn brain MRI. R/O cerebritis,encephalitis Do you want consulting provider notified?: Yes 09/04/17 13:27 Consult to Anesthesia Stat Consulting Provider: Anesthesia,Services Consult Reason/Comments: LP--CSF 09/05/17 10:41 Consult Physician Routine Consulting Provider: Mars Liu Consult Reason/Comments: carotid stenosis Do you want consulting provider notified?: Yes Primary care physician: [facility] [place] [facility] Course: This is a 67-year-old gentleman with a known history of alcohol abuse, previous suicidal ideations, severe depression, recent diagnosis of perianal abscess in June 2017, chronic and ongoing tobacco dependence. who was admitted with AMS and siezure activity , pt has been evaluated by neurologist and pulmonlogist and had extensive w/u for possible stroke and encephalilits including MRI and LP , it was thought his Mental status changed was due to alcohol withdrawal and high ammonia, his mental status changes is improved significantly , and today he is alert awake and oriented , and calm with no distress at patient is back to his baseline. He did have episodes of seizures mostly related to his alcohol withdrawal. He is already on Keppra. patient was evaluated by neurologist and cleared for discharge. EEG shows no epileptiform discharges , No more seizures since admission CT of the brain showed acute versus subacute infarction. CD showed Left carotid stenosis of 50-69 % , he is been evaluated by cardiovascular team and recommended outpatient follow-up. And he is already on aspirin. MRI of the brain showing abnormal signal in the right temporal and parietal lobes. Gyral enhancement. Possibly related to acute ischemia versus infection. Patient have LP which was negative, however it has positive for Gram stain on the CSF most likely contamination as the culture was negative and the biochemical markers were not suggestive of meningitis. Patient HSV DNA by PCR is negative. CT angiogram of the head and neck shows no hemodynamically significant stenosis or focal occlusion. Patient has fever during this admission possibly related to aspiration pneumonitis, patient was on Zosyn until the day of discharge, no need for antibiotics as an outpatient as per ID recommendation. patient had abnormal swallow evaluation. s/p PEG tube placement, feeding was started through the PEG tube with no noticed complication Patient was evaluated and cleared for discharge by the rd project manager, ID team, cardiovascular team, and neurologist team Patient was counseled about smoking and alcohol cessation and he verbalized understanding and acceptance On the day of discharge patient returned to his baseline mental status, patient is mobile with no difficulties. PT/OT evaluated the patient and recommended home with no therapy. No signs of delirium, denies any chest pain, denies any dyspnea or coughing. No vomiting or diarrhea. Patient is found stable and can be discharged home but he needs follow-up as an outpatient and he agrees. Patient told me he is going to make an appointment with his PCP within one week was is been discharged. I spoke with the neurology office for appointment and he took the patient information and phone number which confirmed by the patient himself and stated they will call the patient to make an appointment for him. Appointment is made with the cardiovascular surgeon. Patient agrees with this appointment presents Physical examination Gen. patient is alert awake oriented excision 3, not in distress CVS, S1,S2, RRR, no murmur Lungs, B/L CTA Abdomen, soft, ND, NT, positive bowel sounds Extremity, no edema Neurology, cranial nerves are grossly intact, he was all extremity and equal strength 5/5, no sensory loss, no meningeal signs Patient Condition at Discharge: Fair Plan - Discharge Summary Discharge Rx Participant: No New Discharge Prescriptions: New Acetaminophen Tab [Tylenol] 650 mg PO Q6HR PRN tab PRN Reason: Mild Pain Or Fever > 100.5 Aspirin 81 mg PO DAILY #30 chew Atorvastatin [Lipitor] 20 mg PO HS #30 tab levETIRAcetam [Keppra] 500 mg PO BID #60 tab Multivitamins, Thera [Multivitamin (formulary)] 1 each PO DAILY@1200 #30 tab Nicotine 14Mg/24Hr Patch [Habitrol] 1 patch TRANSDERM DAILY #7 patch Pantoprazole [Protonix] 40 mg PO AC-BRKFST #30 tablet. Thiamine [Vitamin B-1] 100 mg PO BID@1200,1700 #30 tab No Action Hydrocodone/Acetaminophen [[place] 5-325] 1 tab PO Q6HR PRN PRN Reason: Pain Discharge Medication List Hydrocodone/Acetaminophen [[place] 5-325] 1 tab PO Q6HR PRN 09/03/17 [History] Acetaminophen Tab [Tylenol] 650 mg PO Q6HR PRN tab 09/08/17 [Rx] Aspirin 81 mg PO DAILY #30 chew 09/08/17 [Rx] Atorvastatin [Lipitor] 20 mg PO HS #30 tab 09/08/17 [Rx] Multivitamins, Thera [Multivitamin (formulary)] 1 each PO DAILY@1200 #30 tab [Rx] Nicotine 14Mg/24Hr Patch [Habitrol] 1 patch TRANSDERM DAILY #7 patch 09/08/17 [ Rx] Pantoprazole [Protonix] 40 mg PO AC-BRKFST #30 tablet. 09/08/17 [Rx] Thiamine [Vitamin B-1] 100 mg PO BID@1200,1700 #30 tab 09/08/17 [Rx] levETIRAcetam [Keppra] 500 mg PO BID #60 tab 09/08/17 [Rx] Follow up Appointment(s)/Referral(s): Thony Singer MD [Primary Care Provider] - 1 Week (Please call to make an appointment within 1 week) Mars Liu MD [STAFF PHYSICIAN] - 09/10/17 10:00 am (For left carotid artery narrowing) Marlen Osuna MD [STAFF PHYSICIAN] - 1 Week Jadyn Ruelas MD [STAFF PHYSICIAN] - 4 Weeks (I spoke with Dr. Ruelas's office will call patient with an appointment date and time. We recommend to repeat the MRI of the brain and a 3-6 months ) Patient Instructions/Handouts: Urinary Tract Infection in Men (DC), Abuse of Alcohol (DC), Hypertension (DC) Activity/Diet/Wound Care/Special Instructions: Resume cardiac diet 1800 kcal per day We recommend to abstain from alcohol and smoking Activity as tolerated
== END 2017-09-08 16:25 | disposition home or self-care (01) | DRG 896 ==
LOC: SUPCPDRO 09:12 → EC 09:12 → 6ICU 13:01 → 5MS5E 09-04 20:18
PROVIDERS: ADMIT Hospitalist; ATTEND Hospitalist
PROC: 009U3ZX Drainage of Spinal Canal, Percutaneous Approach, Diagnostic (ICD-10-PCS; principal; 2017-09-06 11:30)
DX: F10.231 Alcohol dependence with withdrawal delirium (principal); J96.01 Acute respiratory failure with hypoxia; J69.0 Pneumonitis due to inhalation of food and vomit; G93.41 Metabolic encephalopathy; I63.8 Other cerebral infarction; G40.509 Epileptic seizures related to external causes, not intractable, without status epilepticus; N39.0 Urinary tract infection, site not specified; R45.851 Suicidal ideations; E83.42 Hypomagnesemia; F17.200 Nicotine dependence, unspecified, uncomplicated; F32.9 Major depressive disorder, single episode, unspecified; I10 Essential (primary) hypertension; I65.22 Occlusion and stenosis of left carotid artery; J44.9 Chronic obstructive pulmonary disease, unspecified; R29.705 NIHSS score 5; Z83.3 Family history of diabetes mellitus; Z81.1 Family history of alcohol abuse and dependence; W19.XXXA Unspecified fall, initial encounter; Y93.01 Activity, walking, marching and hiking
CPT/HCPCS: 36415; 51701; 62270; 70450; 70496; 70498; 70553; 71045; 71046; 80048; 80053; 80061; 80306; 80320; 81001; 82140; 82550; 82553; 82945; 83735; 84100; 84157; 84484; 85025; 85610; 85730; 86695; 86696; 87040; 87070; 87086; 87205; 87529; 89050; 93005; 93880; 94640; 94760; 95819; 96361; 96372; 96374; 96375; 96376; 99285

== ENCOUNTER → 2017-10-08 | Outpatient (CLI) | payer MEDICARE, OTHER ==
--- NOTE | 2017-10-10 14:28 | US ---
EXAMINATION TYPE: US thyroid st tissue head/neck DATE OF EXAM: 10/08/2017 COMPARISON: NONE CLINICAL HISTORY: R22.0 thyroid swelling. Patient states difficulty swallowing and swollen glands. GLAND SIZE: Right Lobe: 5.2 x 2.1 x 1.9 cm Overall Parenchyma: homogenous Left Lobe: 5.2 x 1.9 x 1.8 cm Overall Parenchyma: homogeneous Isthmus Thickness: 0.3 cm NODULES RIGHT: # of nodules measured on right: 0 LEFT: # of nodules measured on left: 1 1. 0.7 X 0.6 x 0.7 cm hypoechoic cystic nodule at the mid pole with well-defined margins; . This n odule is wider than tall and shows no intranodular vascularity. Prior size: no prior ISTHMUS: # of nodules measured in the isthmus: 0 Bilateral neck scanned, no evidence of lymphadenopathy. Cyst left lobe. IMPRESSION: Subcentimeter left thyroid nodule appears to be compatible with a thyroid cyst. Thyroid does appear to be enlarged correlate for goiter.
== END | disposition home or self-care (01) ==
LOC: RADUSWWP 16:10
PROVIDERS: ATTEND Internal Medicine
DX: E04.1 Nontoxic single thyroid nodule (principal)
CPT/HCPCS: 76536

== ENCOUNTER 2018-01-05 10:52 | Emergency (ER) | payer MEDICARE, OTHER ==
[2018-01-05] MEDS ORDERED: SODIUM CHLORIDE 0.9% 1,000 ML IV STA (10:58)
[2018-01-05] MEDS ORDERED: levETIRAcetam IV 1,000 MG in SALINE 1 100ML.BAG IVPB STA (10:58)
[2018-01-05] MEDS ORDERED: THIAMINE 100 MG/ML 2 ML VIAL IM STA (11:01)
[2018-01-05] MEDS ORDERED: LORazepam 2 MG/ML INJ IV PRN ×3 (11:01)
--- NOTE | 2018-01-05 11:03 | ED ---
General Adult HPI - General Stated complaint: Seizure - History of Present Illness Initial comments: Dictation was produced using [employer] dictation software. please excuse any grammatical, word or spelling errors. Chief Complaint: 67-year-old male past medical history of seizures presents with seizure. History of Present Illness: Patient was brought in by EMS for tonic-clonic activity. Patient has a past medical history of seizures. Patient has no idea what his antiseizure medication is supposed to be. Patient states he's been in this hospital before for seizures in the past. Chart review shows that patient has history of alcohol withdrawal seizures. Patient denies drinking EtOH everyday. He states he drinks maybe every other day. Chart review shows that the patient is supposed to be on Keppra. Patient has not been eating. EMS reports that patient has stable vital signs and was euglycemic upon initial evaluation. The ROS documented in this emergency department record has been reviewed and confirmed by me. Those systems with pertinent positive or negative responses have been documented in the HPI. All other systems are other negative and/or noncontributory. - Related Data Previous Rx's Medication Instructions Recorded levETIRAcetam [Keppra] 500 mg PO BID #30 tab 01/05/18 Allergies Allergy/AdvReac Type Severity Reaction Status Date / Time No Known Allergies Allergy Verified 01/05/18 11:25 Review of Systems ROS Statement: Those systems with pertinent positive or pertinent negative responses have been documented in the HPI. ROS Other: All systems not noted in ROS Statement are negative. Past Medical History Past Medical History: No Reported History, Unable to Obtain Additional Past Medical History / Comment(s): ETOH abuse with past withdrawal DTs and seizures, R foot fracture 1 year ago-not healing properly, [facility] at [facility] Dr. Singer office visit note, pt recently seen 07/12/17 with perianal abscess. History of Any Multi-Drug Resistant Organisms: None Reported Past Surgical History: No Surgical Hx Reported, Unable to Obtain Additional Past Surgical History / Comment(s): Pt states he has never had surgery but his son, Alexandre believes he has recently had a colonoscopy. Past Anesthesia/Blood Transfusion Reactions: No Reported Reaction Smoking Status: Current every day smoker - Past Family History Father History Unknown: Yes Family Medical History: Diabetes Mellitus Additional Family Medical History / Comment(s): Father was an alcoholic. Mother History Unknown: Yes Family Medical History: Diabetes Mellitus General Exam - General Exam Comments Initial Comments: PHYSICAL EXAM: General Impression: Alert and oriented x3, tremulous HEENT: Normocephalic atraumatic, extra-ocular movements intact, pupils equal and reactive to light bilaterally, mucous membranes moist. Cardiovascular: Heart regular rate and rhythm, S1&S2 audible, no murmurs, rubs or gallops Chest: Lungs clear to auscultation bilaterally, no rhonchi, no wheeze, no rales Abdomen: Bowel sounds present, abdomen soft, non-tender, non-distended, no organomegaly Musculoskeletal: Pulses present and equal in all extremities, no peripheral edema Motor: Power 5/5 bilaterally, no focal deficits noted Neurological: CN II-XII grossly intact, no focal motor or sensory deficits noted Skin: Intact with no visualized rashes Psych: Normal affect and mood Course Vital Signs 01/05/18 01/05/18 10:59 11:57 Temperature 99.1 F Pulse Rate 124 H 73 Respiratory 18 18 Rate Blood Pressure 155/95 142/101 O2 Sat by Pulse 93 L 96 Oximetry Medical Decision Making - Medical Decision Making ED course: [id number] male with past medical history of seizures, EtOH withdrawal presents with seizure. Patient has a past medical history of seizures. He is supposed to be on Keppra. Patient has not been noncompliant with his antiseizure medications secondary to financial issues. Furthermore, patient has no clue what his seizure medications are supposed to be. Chart review shows that patient has a history of EtOH withdrawal. Patient is tremulous. He denies daily EtOH however he has been admitted for EtOH withdrawal and the past. Patient is tremulous and there is some suspicion that patient had alcohol withdrawal seizure.. Vital signs upon arrival shows heart rate of 124, rest of vital signs within acceptable limits. Patient's clinical presentation is suspicious for EtOH withdrawal seizures. Patient has a history of epilepsy. He is given 1 g of Keppra and 2 g of Ativan. Patient reevaluated after Ativan administration with improvement of symptoms. Patient expressed deeply that he does not want to be admitted to the hospital. Discussed with patient that he has serious condition of EtOH withdrawal. He is told that if he goes home peaked experience worsening seizures,, may experience trauma from seizures or development chronic neurologic deficits. Patient understands the risk. He is given prescription for Keppra for discharge. Patient states he will arrange for a ride to pick him up at approximately one hour. - Lab Data Result diagrams: 01/05/18 11:09 01/05/18 11:09 Lab Results 01/05/18 01/05/18 Range/Units 11:09 11:09 WBC 6.6 (3.8-10.6) k/uL RBC 4.41 (4.30-5.90) m/uL Hgb 13.7 (13.0-17.5) gm/dL Hct 43.6 (39.0-53.0) % MCV 98.8 (80.0-100.0) fL MCH 31.1 (25.0-35.0) pg MCHC 31.4 (31.0-37.0) g/dL RDW 13.6 (11.5-15.5) % Plt Count 168 (150-450) k/uL Neutrophils % 75 % Lymphocytes % 14 % Monocytes % 8 % Eosinophils % 0 % Basophils % 0 % Neutrophils # 4.9 (1.3-7.7) k/uL Lymphocytes # 0.9 L (1.0-4.8) k/uL Monocytes # 0.6 (0-1.0) k/uL Eosinophils # 0.0 (0-0.7) k/uL Basophils # 0.0 (0-0.2) k/uL Sodium 144 (137-145) mmol/L Potassium 4.2 (3.5-5.1) mmol/L Chloride 103 (98-107) mmol/L Carbon Dioxide 21 L (22-30) mmol/L Anion Gap 20 mmol/L BUN 11 (9-20) mg/dL Creatinine 0.78 (0.66-1.25) mg/dL Est GFR (CKD-EPI)AfAm >90 (>60 ml/min/1.73 sqM) Est GFR (CKD-EPI)NonAf >90 (>60 ml/min/1.73 sqM) Glucose 128 H (74-99) mg/dL Calcium 9.3 (8.4-10.2) mg/dL Magnesium 1.6 (1.6-2.3) mg/dL Serum Alcohol <10 mg/dL Disposition Clinical Impression: Withdrawal seizures Disposition: HOME SELF-CARE Condition: Poor Instructions: Recurrent Seizures in Adults (ED) Prescriptions: levETIRAcetam [Keppra] 500 mg PO BID #30 tab Is patient prescribed a controlled substance at d/c from ED?: No Referrals: Thony Singer MD [Primary Care Provider] - 1-2 days Time of Disposition: 12:47
[2018-01-05 11:30] LABS: Basophils % (A) 0 %; Eosinophils % (A) 0 %; HCT 43.6 % (39.0-53.0); HGB 13.7 gm/dL (13.0-17.5); Lymphocytes # (A) 0.9 k/uL (1.0-4.8); Lymphocytes % (A) 14 %; MCH 31.1 pg (25.0-35.0); MCHC 31.4 g/dL (31.0-37.0); MCV 98.8 fL (80.0-100.0); Mean Platelet Volume 7.2; Monocytes # (A) 0.6 k/uL (0-1.0); Monocytes % (A) 8 %; Neutrophils # (A) 4.9 k/uL (1.3-7.7); Neutrophils % (A) 75 %; Platelet Count 168 k/uL (150-450); RBC 4.41 m/uL (4.30-5.90); RDW 13.6 % (11.5-15.5); WBC 6.6 k/uL (3.8-10.6)
[2018-01-05 11:32] LABS: Alcohol <10 mg/dL; Anion Gap 20 mmol/L; Blood Urea Nitrogen 11 mg/dL (9-20); Calcium 9.3 mg/dL (8.4-10.2); Carbon Dioxide 21 mmol/L (22-30); Chloride 103 mmol/L (98-107); Glucose 128 mg/dL (74-99); Magnesium 1.6 mg/dL (1.6-2.3); Potassium 4.2 mmol/L (3.5-5.1); Sodium 144 mmol/L (137-145)
[2018-01-05 13:30] VITALS: BP 169/90; RESP 16
[2018-01-05 14:11] VITALS: PULSE 78; TEMP 98
[2018-01-05] MEDS ORDERED: THIAMINE 100 MG TAB PO SCH (17:00)
== END 2018-01-05 14:10 | disposition home or self-care (01) ==
LOC: EC 10:52
DX: F10.239 Alcohol dependence with withdrawal, unspecified (principal); F17.200 Nicotine dependence, unspecified, uncomplicated; Z81.1 Family history of alcohol abuse and dependence
CPT/HCPCS: 36415; 93005; 80048; 83735; 85025; 99284; 96365; 96375; 96361 ×2; G0480; J2060; J1953; 80320

== ENCOUNTER 2018-04-03 09:03 | Inpatient (IN) | payer MEDICARE, OTHER ==
[2018-04-03] MEDS ORDERED: LORazepam 2 MG/ML INJ IV STA ×2 (09:08→12:58)
--- NOTE | 2018-04-03 09:22 | ED ---
Seizure HPI - General Chief Complaint: Seizure Stated Complaint: Seizure Time Seen by Provider: 04/03/18 09:03 Source: patient, RN notes reviewed Mode of arrival: EMS Limitations: no limitations - History of Present Illness Initial Comments: This is a 67-year-old male who from examination of old charting has a history of bipolar disorder depression and alcoholism and seizures who is brought in by EMS after being found naked on the floor in his home by neighbors. He did have a seizure apparently earlier he did wake up was able be conversant with EMS personnel. Upon arrival here he began seizing again demonstrating evidence of a tonic-clonic generalized seizure with a right lateral gaze. This lasted approximately 2 minutes. Patient did require IV Ativan. He does have the smell of alcohol conjoiners on his breath per paramedics. He did have beer cans skin is rather his residence. MD Complaint: seizure - Related Data Previous Rx's Medication Instructions Recorded levETIRAcetam [Keppra] 500 mg PO BID #30 tab 01/05/18 Allergies Allergy/AdvReac Type Severity Reaction Status Date / Time No Known Allergies Allergy Verified 04/03/18 12:26 Review of Systems ROS Statement: Those systems with pertinent positive or pertinent negative responses have been documented in the HPI. ROS Other: All systems not noted in ROS Statement are negative. Limitations: ROS unobtainable due to patients medical condition Past Medical History Past Medical History: No Reported History, Unable to Obtain Additional Past Medical History / Comment(s): ETOH abuse with past withdrawal DTs and seizures, R foot fracture 1 year ago-not healing properly, [facility] Dr. Singer office visit note, pt recently seen 07/12/17 with perianal abscess. History of Any Multi-Drug Resistant Organisms: None Reported Past Surgical History: No Surgical Hx Reported, Unable to Obtain Additional Past Surgical History / Comment(s): Pt states he has never had surgery but his son, Alexandre believes he has recently had a colonoscopy. Past Anesthesia/Blood Transfusion Reactions: No Reported Reaction Past Psychological History: No Psychological Hx Reported Smoking Status: Current every day smoker - Past Family History Father History Unknown: Yes Family Medical History: Diabetes Mellitus Additional Family Medical History / Comment(s): Father was an alcoholic. Mother History Unknown: Yes Family Medical History: Diabetes Mellitus General Exam - General Exam Comments Initial Comments: This is a well-developed sec appearing male who was actively seizing initially and then after interventions subsequently was at rest. Lethargic Limitations: no limitations General appearance: lethargic Head exam: Present: atraumatic, normocephalic, normal inspection Eye exam: Present: normal appearance, PERRL, EOMI. Absent: scleral icterus, conjunctival injection, periorbital swelling ENT exam: Present: mucous membranes dry Neck exam: Present: normal inspection. Absent: tenderness, meningismus, lymphadenopathy Respiratory exam: Present: normal lung sounds bilaterally. Absent: respiratory distress, wheezes, rales, rhonchi, stridor Cardiovascular Exam: Present: normal rhythm, tachycardia GI/Abdominal exam: Present: soft, normal bowel sounds. Absent: distended, tenderness, guarding, rebound, rigid Extremities exam: Present: normal inspection, full ROM, normal capillary refill. Absent: tenderness, pedal edema, joint swelling, calf tenderness Back exam: Present: normal inspection Neurological exam: Present: altered, CN II-XII intact Psychiatric exam: Present: other (Unable to evaluate at this time) Skin exam: Present: warm, dry, intact, normal color. Absent: rash Course Vital Signs 04/03/18 04/03/18 04/03/18 09:06 09:16 09:17 Temperature 97.8 F Pulse Rate 112 H 107 H Respiratory 18 19 Rate Blood Pressure 132/71 O2 Sat by Pulse 96 98 Oximetry 04/03/18 04/03/18 04/03/18 09:30 10:00 10:30 Temperature Pulse Rate 105 H 104 H 104 H Respiratory 18 20 20 Rate Blood Pressure 103/69 103/69 131/61 O2 Sat by Pulse 98 96 97 Oximetry - Reevaluation(s) Reevaluation #1: 04/03/18 13:09 I did reevaluate patient several occasions he is responding and becoming more awake Time progresses. Medical Decision Making - Medical Decision Making The patient persists in having tremors he is more awake and alert however at this time. He will be admitted I did discuss the case with Dr. Buckley - Lab Data Result diagrams: 04/03/18 09:10 04/03/18 09:10 Lab Results 04/03/18 04/03/18 04/03/18 Range/Units 09:07 09:10 09:10 WBC (3.8-10.6) k/uL RBC (4.30-5.90) m/uL Hgb (13.0-17.5) gm/dL Hct (39.0-53.0) % MCV (80.0-100.0) fL MCH (25.0-35.0) pg MCHC (31.0-37.0) g/dL RDW (11.5-15.5) % Plt Count (150-450) k/uL Neutrophils % % Lymphocytes % % Monocytes % % Eosinophils % % Basophils % % Neutrophils # (1.3-7.7) k/uL Lymphocytes # (1.0-4.8) k/uL Monocytes # (0-1.0) k/uL Eosinophils # (0-0.7) k/uL Basophils # (0-0.2) k/uL Hypochromasia Macrocytosis Sodium (137-145) mmol/L Potassium (3.5-5.1) mmol/L Chloride (98-107) mmol/L Carbon Dioxide (22-30) mmol/L Anion Gap mmol/L BUN (9-20) mg/dL Creatinine (0.66-1.25) mg/dL Est GFR (CKD-EPI)AfAm (>60 ml/min/1.73 sqM) Est GFR (CKD-EPI)NonAf (>60 ml/min/1.73 sqM) Glucose (74-99) mg/dL POC Glucose (mg/dL) 143 H (75-99) mg/dL POC Glu Air Conditioning Specialist ID Rick Michael Osmolality 323 H (280-301) mosm/kg Calcium (8.4-10.2) mg/dL Magnesium (1.6-2.3) mg/dL Total Bilirubin (0.2-1.3) mg/dL AST (17-59) U/L ALT (21-72) U/L Alkaline Phosphatase (38-126) U/L Ammonia 230 H (<30) umol/L Total Creatine Kinase (55-170) U/L CK-MB (CK-2) (0.0-2.4) ng/mL CK-MB (CK-2) Rel Index Troponin I (0.000-0.034) ng/mL NT-Pro-B Natriuret Pep pg/mL Total Protein (6.3-8.2) g/dL Albumin (3.5-5.0) g/dL Amylase (30-110) U/L Lipase (23-300) U/L TSH (0.465-4.680) mIU/L Urine Color Urine Appearance (Clear) Urine pH (5.0-8.0) Ur Specific Aneta (1.001-1.035) Urine Protein (Negative) Urine Glucose (UA) (Negative) Urine Ketones (Negative) Urine Blood (Negative) Urine Nitrite (Negative) Urine Bilirubin (Negative) Urine Urobilinogen (<2.0) mg/dL Ur Leukocyte Esterase (Negative) Urine RBC (0-5) /hpf Urine WBC (0-5) /hpf Ur Squamous Epith Cells (0-4) /hpf Urine Bacteria (None) /hpf Hyaline Casts (0-2) /lpf Urine Mucus (None) /hpf Urine Opiates Screen (NotDetected) Ur Oxycodone Screen (NotDetected) Urine Methadone Screen (NotDetected) Ur Propoxyphene Screen (NotDetected) Ur Barbiturates Screen (NotDetected) U Tricyclic Antidepress (NotDetected) Ur Phencyclidine Scrn (NotDetected) Ur Amphetamines Screen (NotDetected) U Methamphetamines Scrn (NotDetected) U Benzodiazepines Scrn (NotDetected) Urine Cocaine Screen (NotDetected) U Marijuana (THC) Screen (NotDetected) Serum Alcohol mg/dL 04/03/18 04/03/18 04/03/18 Range/Units 09:10 09:10 09:10 WBC (3.8-10.6) k/uL RBC (4.30-5.90) m/uL Hgb (13.0-17.5) gm/dL Hct (39.0-53.0) % MCV (80.0-100.0) fL MCH (25.0-35.0) pg MCHC (31.0-37.0) g/dL RDW (11.5-15.5) % Plt Count (150-450) k/uL Neutrophils % % Lymphocytes % % Monocytes % % Eosinophils % % Basophils % % Neutrophils # (1.3-7.7) k/uL Lymphocytes # (1.0-4.8) k/uL Monocytes # (0-1.0) k/uL Eosinophils # (0-0.7) k/uL Basophils # (0-0.2) k/uL Hypochromasia Macrocytosis Sodium 150 H (137-145) mmol/L Potassium 4.6 (3.5-5.1) mmol/L Chloride 107 (98-107) mmol/L Carbon Dioxide 12 L (22-30) mmol/L Anion Gap 31 mmol/L BUN 8 L (9-20) mg/dL Creatinine 1.05 (0.66-1.25) mg/dL Est GFR (CKD-EPI)AfAm 86 (>60 ml/min/1.73 sqM) Est GFR (CKD-EPI)NonAf 74 (>60 ml/min/1.73 sqM) Glucose 148 H (74-99) mg/dL POC Glucose (mg/dL) (75-99) mg/dL POC Glu Air Conditioning Specialist ID Osmolality (280-301) mosm/kg Calcium 9.8 (8.4-10.2) mg/dL Magnesium 2.1 (1.6-2.3) mg/dL Total Bilirubin 0.8 (0.2-1.3) mg/dL AST 58 (17-59) U/L ALT 27 (21-72) U/L Alkaline Phosphatase 44 (38-126) U/L Ammonia (<30) umol/L Total Creatine Kinase 120 (55-170) U/L CK-MB (CK-2) 1.0 (0.0-2.4) ng/mL CK-MB (CK-2) Rel Index 0.8 Troponin I 0.017 (0.000-0.034) ng/mL NT-Pro-B Natriuret Pep 357 pg/mL Total Protein 8.5 H (6.3-8.2) g/dL Albumin 5.0 (3.5-5.0) g/dL Amylase 58 (30-110) U/L Lipase 197 (23-300) U/L TSH 2.720 (0.465-4.680) mIU/L Urine Color Urine Appearance (Clear) Urine pH (5.0-8.0) Ur Specific Aneta (1.001-1.035) Urine Protein (Negative) Urine Glucose (UA) (Negative) Urine Ketones (Negative) Urine Blood (Negative) Urine Nitrite (Negative) Urine Bilirubin (Negative) Urine Urobilinogen (<2.0) mg/dL Ur Leukocyte Esterase (Negative) Urine RBC (0-5) /hpf Urine WBC (0-5) /hpf Ur Squamous Epith Cells (0-4) /hpf Urine Bacteria (None) /hpf Hyaline Casts (0-2) /lpf Urine Mucus (None) /hpf Urine Opiates Screen (NotDetected) Ur Oxycodone Screen (NotDetected) Urine Methadone Screen (NotDetected) Ur Propoxyphene Screen (NotDetected) Ur Barbiturates Screen (NotDetected) U Tricyclic Antidepress (NotDetected) Ur Phencyclidine Scrn (NotDetected) Ur Amphetamines Screen (NotDetected) U Methamphetamines Scrn (NotDetected) U Benzodiazepines Scrn (NotDetected) Urine Cocaine Screen (NotDetected) U Marijuana (THC) Screen (NotDetected) Serum Alcohol 39 mg/dL 04/03/18 04/03/18 Range/Units 09:10 10:31 WBC 13.1 H (3.8-10.6) k/uL RBC 4.62 (4.30-5.90) m/uL Hgb 14.5 (13.0-17.5) gm/dL Hct 49.1 (39.0-53.0) % MCV 106.4 H (80.0-100.0) fL MCH 31.5 (25.0-35.0) pg MCHC 29.6 L (31.0-37.0) g/dL RDW 13.6 (11.5-15.5) % Plt Count 363 (150-450) k/uL Neutrophils % 68 % Lymphocytes % 21 % Monocytes % 7 % Eosinophils % 1 % Basophils % 1 % Neutrophils # 8.9 H (1.3-7.7) k/uL Lymphocytes # 2.7 (1.0-4.8) k/uL Monocytes # 0.9 (0-1.0) k/uL Eosinophils # 0.1 (0-0.7) k/uL Basophils # 0.1 (0-0.2) k/uL Hypochromasia Marked Macrocytosis Moderate Sodium (137-145) mmol/L Potassium (3.5-5.1) mmol/L Chloride (98-107) mmol/L Carbon Dioxide (22-30) mmol/L Anion Gap mmol/L BUN (9-20) mg/dL Creatinine (0.66-1.25) mg/dL Est GFR (CKD-EPI)AfAm (>60 ml/min/1.73 sqM) Est GFR (CKD-EPI)NonAf (>60 ml/min/1.73 sqM) Glucose (74-99) mg/dL POC Glucose (mg/dL) (75-99) mg/dL POC Glu Air Conditioning Specialist ID Osmolality (280-301) mosm/kg Calcium (8.4-10.2) mg/dL Magnesium (1.6-2.3) mg/dL Total Bilirubin (0.2-1.3) mg/dL AST (17-59) U/L ALT (21-72) U/L Alkaline Phosphatase (38-126) U/L Ammonia (<30) umol/L Total Creatine Kinase (55-170) U/L CK-MB (CK-2) (0.0-2.4) ng/mL CK-MB (CK-2) Rel Index Troponin I (0.000-0.034) ng/mL NT-Pro-B Natriuret Pep pg/mL Total Protein (6.3-8.2) g/dL Albumin (3.5-5.0) g/dL Amylase (30-110) U/L Lipase (23-300) U/L TSH (0.465-4.680) mIU/L Urine Color Yellow Urine Appearance Cloudy (Clear) Urine pH 5.0 (5.0-8.0) Ur Specific Aneta 1.010 (1.001-1.035) Urine Protein 1+ H (Negative) Urine Glucose (UA) Negative (Negative) Urine Ketones Negative (Negative) Urine Blood Small H (Negative) Urine Nitrite Positive (Negative) Urine Bilirubin Negative (Negative) Urine Urobilinogen <2.0 (<2.0) mg/dL Ur Leukocyte Esterase Small H (Negative) Urine RBC 1 (0-5) /hpf Urine WBC 8 H (0-5) /hpf Ur Squamous Epith Cells <1 (0-4) /hpf Urine Bacteria Moderate H (None) /hpf Hyaline Casts 15 H (0-2) /lpf Urine Mucus Rare H (None) /hpf Urine Opiates Screen Not Detected (NotDetected) Ur Oxycodone Screen Not Detected (NotDetected) Urine Methadone Screen Not Detected (NotDetected) Ur Propoxyphene Screen Not Detected (NotDetected) Ur Barbiturates Screen Not Detected (NotDetected) U Tricyclic Antidepress Not Detected (NotDetected) Ur Phencyclidine Scrn Not Detected (NotDetected) Ur Amphetamines Screen Not Detected (NotDetected) U Methamphetamines Scrn Not Detected (NotDetected) U Benzodiazepines Scrn Not Detected (NotDetected) Urine Cocaine Screen Not Detected (NotDetected) U Marijuana (THC) Screen Not Detected (NotDetected) Serum Alcohol mg/dL - EKG Data -: EKG Interpreted by Me EKG shows normal: sinus rhythm (Sinus tachycardia rate of 110 MA interval 164 QRS 100 QT since QTC 360/[address] configuration.) - Radiology Data Radiology results: report reviewed (I did review the imaging and reports no acute findings.), image reviewed Critical Care Time Critical Care Time: Yes Critical Care Time: 32 minutes of critical care time which includes initial presentation with history physical labs x-rays discussed with paramedics. Several reevaluation the patient. Discussed with the admitting physician admission orders and documentation of the above Disposition Clinical Impression: Generalized seizure, Alcohol withdrawal seizure, Urinary tract infection, Dehydration, Alcohol abuse Disposition: ADMITTED IP TO THIS [facility] Condition: Serious Referrals: Thony Singer MD [Primary Care Provider] - 1-2 days
[2018-04-03] MEDS ORDERED: SODIUM CHLORIDE 0.9% 1,000 ML with MVI, ADULT NO.4 WITH VIT K 10 ML, THIAMINE 100 MG, F... IV ONE ×4 (09:30)
--- NOTE | 2018-04-03 09:51 | XR ---
EXAMINATION TYPE: XR chest 1V portable DATE OF EXAM: 04/03/2018 HISTORY: Seizure activity. REFERENCE: Previous study dated 09/05/2017. FINDINGS: The study is moderately rotated. Allowing for this the lungs appear clear. Pleural spaces a re clear. The heart is not enlarged. IMPRESSION: NO ACUTE INTRATHORACIC ABNORMALITY.
[2018-04-03 09:56] LABS: Basophils # (A) 0.1 k/uL (0-0.2); Basophils % (A) 1 %; Eosinophils # (A) 0.1 k/uL (0-0.7); Eosinophils % (A) 1 %; HCT 49.1 % (39.0-53.0); HGB 14.5 gm/dL (13.0-17.5); Hypochromasia Marked; Lymphocytes # (A) 2.7 k/uL (1.0-4.8); Lymphocytes % (A) 21 %; MCH 31.5 pg (25.0-35.0); MCHC 29.6 g/dL (31.0-37.0); MCV 106.4 fL (80.0-100.0); Macrocytosis Moderate; Mean Platelet Volume 8.5; Monocytes # (A) 0.9 k/uL (0-1.0); Monocytes % (A) 7 %; Neutrophils # (A) 8.9 k/uL (1.3-7.7); Neutrophils % (A) 68 %; Platelet Count 363 k/uL (150-450); RBC 4.62 m/uL (4.30-5.90); RDW 13.6 % (11.5-15.5); WBC 13.1 k/uL (3.8-10.6)
[2018-04-03 09:57] LABS: Calcium 9.8 mg/dL (8.4-10.2); Magnesium 2.1 mg/dL (1.6-2.3); Potassium 4.6 mmol/L (3.5-5.1); Total Bilirubin 0.8 mg/dL (0.2-1.3); Total Protein 8.5 g/dL (6.3-8.2)
[2018-04-03 10:04] LABS: Glucose,Whole Blood 143 mg/dL (75-99)
[2018-04-03 10:18] LABS: Troponin I 0.017 ng/mL (0.000-0.034)
[2018-04-03 11:01] LABS: Appearance,Urine Cloudy (Clear); Bacteria,Urine Moderate /hpf; Bilirubin,Urine Negative (Negative); Blood,Urine Small (Negative); Color,Urine Yellow; Glucose,Urine (UA) Negative (Negative); Hyaline Casts,Urine 15 /lpf (0-2); Ketones,Urine Negative (Negative); Leukocyte Esterase,Urine Small (Negative); Mucus,Urine Rare /hpf; Nitrite,Urine Positive (Negative); Protein,Urine 1+ (Negative); RBC,Urine 1 /hpf (0-5); Squamous Epithelial Cell,Urine <1 /hpf (0-4); Urobilinogen,Urine <2.0 mg/dL (<2.0); WBC,Urine 8 /hpf (0-5)
[2018-04-03 11:06] LABS: Amphetamine Screen,Urine Not Detected (NotDetected); Barbiturate Screen,Urine Not Detected (NotDetected); Benzodiazepines Screen,Urine Not Detected (NotDetected); Cocaine Screen,Urine Not Detected (NotDetected); Methadone Screen, Urine Not Detected (NotDetected); Opiate Screen,Urine Not Detected (NotDetected); Oxycodone Screen, Urine Not Detected (NotDetected); Phencyclidine Screen,Urine Not Detected (NotDetected); Tricyclic Antidepressant,Urine Not Detected (NotDetected); Urn Cannabinoid Scrn Not Detected (NotDetected)
--- NOTE | 2018-04-03 11:27 | CT ---
EXAMINATION TYPE: CT brain elisha wo con DATE OF EXAM: 04/03/2018 COMPARISON: Previous CT scan of the brain dated 09/03/2017 HISTORY: Seizure. CT DLP: 1446.50 mGycm Automated exposure control for dose reduction was used. TECHNIQUE: CT scan of the head and cervical spine are performed without contrast. FINDINGS: BRAIN: There has been a previous right MCA infarct. This was involving on the previous CT. There are generalized changes of mild sulcal prominence and ventriculomegaly compatible with mild atr ophic change. Central structures are midline. There is no evidence of hydrocephalus. No acute focal lesion, mass ef fect or midline shift is seen. I do not see evidence of intracranial blood. There is complete opacification of the right maxillary sinus and part of the anterior right ethmoid a ir cells. This is a chronic finding. The mastoid air cells are clear. The bony calvarium is intact. IMPRESSION: 1. NO ACUTE INTRACRANIAL ABNORMALITY. 2. 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 3. CHRONIC SINUS MUCOSAL DISEASE. CERVICAL SPINE: There are mild emphysematous changes within the lungs. There is some small blebs in t he left apex. There is ectasia of the distal arch which measures 3.1 cm. Prevertebral soft tissues ar e otherwise unremarkable. Vertebral body height and alignment are maintained. Atlantoaxial relationships are normal. There is f airly severe disc space loss and hypertrophic spondylosis at C5-6 and C6-7. There is uncovertebral kian int disease at these levels. There is bilateral facet arthropathy worse on the left than the right at the C2-3 level and bilaterally at C3-4 level. No definite protrusion is seen. No acute fracture is seen. There is evidence of a healed fracture of the proximal left clavicle. IMPRESSION: 1. NO ACUTE OSSEOUS LESION. 2. MODERATE DEGENERATIVE CHANGE. 3. EVIDENCE OF OLD TRAUMA TO THE PROXIMAL LEFT CLAVICLE.
[2018-04-03] MEDS ORDERED: NALOXONE 0.4 MG/ML 1 ML VIAL IV PRN (13:11)
[2018-04-03] MEDS ORDERED: THIAMINE 100 MG/ML 2 ML VIAL IM STA (13:14)
[2018-04-03] MEDS ORDERED: LORazepam 2 MG/ML INJ IV PRN (13:14)
[2018-04-03 14:01] VITALS: BMI 21.7
[2018-04-03] MEDS: SODIUM CHLORIDE 0.9% 1,000 ML IV SCH (14:38)
[2018-04-03] MEDS: LORazepam 2 MG/ML INJ IV PRN ×2 (14:42→17:02)
--- NOTE | 2018-04-03 16:09 | P.HPIM ---
History of Present Illness H&P Date: 04/03/18 Chief Complaint: seizures Mr. Osullivan is a 67-year-old male with a past medical history of seizure disorder, bipolar disorder, depression and alcohol abuse brought in by EMS after he was found naked on the floor by his neighbor in his house.patient had a witnessed seizure before EMS arrived. After that he woke up and was able to have a conversation with the EMS personnel. In the ER the patient was seizing again demonstrating a tonic-clonic generalized seizure. As per the ER note it lasted for approximately 2 minutes. As per the paramedics the patient to smell of alcohol. And they found empty beer cans at his residence. In the ER patient had CAT scan of the head and cervical spine-that was negative for any acute intracranial process. His blood work revealed hypernatremia with sodium of 150, ammonia of 30 and leukocytosis of 13. He has been admitted for seizures. Currently the patient is in on the floor with a sitter at the bedside. As per the nursing staff report patient received a dose of Ativan few minutes back. Patient is very drowsy, opens his eyes on calling his name but falls back to sleep quickly. Review of systems-could not be done as the patient is drowsy. Patient has history of alcohol abuse and seizure disorder. His home medications include Keppra. Review of Systems could not be done as the patient is to see Past Medical History Past Medical History: No Reported History, Unable to Obtain Additional Past Medical History / Comment(s): ETOH abuse with past withdrawal DTs and seizures, R foot fracture 1 year ago-not healing properly, [facility] Dr. Singer office visit note, pt recently seen 07/12/17 with perianal abscess. History of Any Multi-Drug Resistant Organisms: None Reported Past Surgical History: No Surgical Hx Reported, Unable to Obtain Additional Past Surgical History / Comment(s): Pt states he has never had surgery but his son, Alexandre believes he has recently had a colonoscopy. Past Anesthesia/Blood Transfusion Reactions: No Reported Reaction Past Psychological History: No Psychological Hx Reported Additional Psychological History / Comment(s): Pt states he drinks 3 beers a day , 25 ounce size. Last drink a couple days ago Smoking Status: Current some day smoker Past Alcohol Use History: Daily Additional Past Alcohol Use History / Comment(s): Pt started smoking in 1965 and is a ppd smoker. Pt states he drinks 3 beers a day, 25 ounce size. Last drink a couple days ago Past Drug Use History: None Reported - Past Family History Father History Unknown: Yes Family Medical History: Diabetes Mellitus Additional Family Medical History / Comment(s): Father was an alcoholic. Mother History Unknown: Yes Family Medical History: Diabetes Mellitus Medications and Allergies Home Medications Medication Instructions Recorded Confirmed Type levETIRAcetam [Keppra] 500 mg PO BID #30 tab 01/05/18 04/03/18 Rx Allergies Allergy/AdvReac Type Severity Reaction Status Date / Time No Known Allergies Allergy Verified 04/03/18 12:26 Physical Exam Vitals: Vital Signs Temp Pulse Resp BP Pulse Ox 04/03/18 13:00 98.0 F 98 18 153/98 04/03/18 12:30 114 H 14 132/80 04/03/18 12:00 81 18 131/86 04/03/18 11:30 79 20 123/86 04/03/18 11:00 143/86 04/03/18 10:30 104 H 20 131/61 97 04/03/18 10:00 104 H 20 103/69 96 04/03/18 09:30 105 H 18 103/69 98 04/03/18 09:17 107 H 19 98 04/03/18 09:16 97.8 F 04/03/18 09:06 112 H 18 132/71 96 Intake and Output 04/03/18 04/03/18 04/03/18 06:59 14:59 22:59 Other: Weight 72.575 kg GEN. APPEARANCE: drowsy. Opens his eyes on calling his name. HEAD EXAM: atraumatic, normocephalic, normal inspection EYE EXAM: pupils are equal and reactive to light. No pallor. No icterus. NECK EXAM: normal inspection. Absent: tenderness, meningismus, full ROM, lymphadenopathy RESPIRATORY EXAM: bilateral breath sounds are positive. Slightly diminished at the lower lung bases. No wheezes or crackles. CARDIOVASCULAR EXAM: S1 and S2 heard. GI/ABDOMINAL EXAM: abdomen is soft nontender. Bowel sounds are positive. Patient just had a bowel movement in his bed. EXTREMITIES EXAM: no peripheral edema NEUROLOGICAL EXAM: patient is drowsy Results CBC & Chem 7: 04/03/18 09:10 04/03/18 09:10 Labs: Abnormal Lab Results - Last 24 Hours (Table) 04/03/18 04/03/18 04/03/18 Range/Units 09:07 09:10 09:10 WBC (3.8-10.6) k/uL MCV (80.0-100.0) fL MCHC (31.0-37.0) g/dL Neutrophils # (1.3-7.7) k/uL Sodium (137-145) mmol/L Carbon Dioxide (22-30) mmol/L BUN (9-20) mg/dL Glucose (74-99) mg/dL POC Glucose (mg/dL) 143 H (75-99) mg/dL Osmolality 323 H (280-301) mosm/kg Ammonia 230 H (<30) umol/L Total Protein (6.3-8.2) g/dL Urine Protein (Negative) Urine Blood (Negative) Ur Leukocyte Esterase (Negative) Urine WBC (0-5) /hpf Urine Bacteria (None) /hpf Hyaline Casts (0-2) /lpf Urine Mucus (None) /hpf 04/03/18 04/03/18 04/03/18 Range/Units 09:10 09:10 10:31 WBC 13.1 H (3.8-10.6) k/uL MCV 106.4 H (80.0-100.0) fL MCHC 29.6 L (31.0-37.0) g/dL Neutrophils # 8.9 H (1.3-7.7) k/uL Sodium 150 H (137-145) mmol/L Carbon Dioxide 12 L (22-30) mmol/L BUN 8 L (9-20) mg/dL Glucose 148 H (74-99) mg/dL POC Glucose (mg/dL) (75-99) mg/dL Osmolality (280-301) mosm/kg Ammonia (<30) umol/L Total Protein 8.5 H (6.3-8.2) g/dL Urine Protein 1+ H (Negative) Urine Blood Small H (Negative) Ur Leukocyte Esterase Small H (Negative) Urine WBC 8 H (0-5) /hpf Urine Bacteria Moderate H (None) /hpf Hyaline Casts 15 H (0-2) /lpf Urine Mucus Rare H (None) /hpf Thrombosis Risk Factor Assmnt - Choose All That Apply Any of the Below Risk Factors Present?: Yes Other Risk Factors: Yes Each Risk Factor Represents 2 Points: Age 61-74 years Other congenital or acquired thrombophilia - If yes, enter type in comment: Yes Thrombosis Risk Factor Assessment Total Risk Factor Score: 2 Thrombosis Risk Factor Assessment Level: Low Risk Assessment and Plan Assessment: ASSESSMENT Generalized tonic-clonic seizure Alcohol intoxication Leukocytosis Hypernatremia Hyperammonemia Plan:patient has been started on IV fluids with thiamine supplements. Ativan when necessary for seizures. We will monitor him for delirium tremens. patient had a urine analysis done which was for positive for nitrite and small leukocyte esterase and he received a dose of ceftriaxone. Urine culture is ordered. Patient spiked a fever of 100F. We will order blood cultures. Currently there is no identifiable source of infection, it can be secondary to the seizure episode that he had few hours back. We'll check CBC and follow up on the cultures. Patient has a sitter at the bedside. Further recommendations to follow depending on the progress of the patient.
[2018-04-03] MEDS: ACETAMINOPHEN TAB 325 MG TAB PO PRN (16:36)
[2018-04-03] MEDS: THIAMINE 100 MG TAB PO SCH (17:02)
[2018-04-03] MEDS: levETIRAcetam 500 MG TAB PO SCH (20:31)
[2018-04-04] MEDS: NICOTINE 21MG/24HR PATCH TRANSDERM SCH ×3 (00:12→22:43)
[2018-04-04] MEDS: SODIUM CHLORIDE 0.9% 1,000 ML IV SCH ×2 (00:20→14:24)
[2018-04-04] MEDS: LORazepam 2 MG/ML INJ IV PRN ×4 (05:00→21:48)
[2018-04-04] MEDS: levETIRAcetam 500 MG TAB PO SCH ×2 (09:00→21:51)
[2018-04-04] MEDS: ACETAMINOPHEN TAB 325 MG TAB PO PRN (09:00)
[2018-04-04 10:07] LABS: ALT 31 U/L (21-72); AST 35 U/L (17-59); Albumin 3.5 g/dL (3.5-5.0); Alkaline Phosphatase 36 U/L (38-126); Anion Gap 6 mmol/L; Blood Urea Nitrogen 14 mg/dL (9-20); Carbon Dioxide 31 mmol/L (22-30); Chloride 101 mmol/L (98-107); Glucose 108 mg/dL (74-99); Potassium 3.7 mmol/L (3.5-5.1); Sodium 138 mmol/L (137-145); Total Bilirubin 1.2 mg/dL (0.2-1.3); Total Protein 6.5 g/dL (6.3-8.2)
[2018-04-04 10:10] LABS: Basophils % (A) 0 %; Eosinophils % (A) 0 %; HCT 39.7 % (39.0-53.0); HGB 12.9 gm/dL (13.0-17.5); Lymphocytes # (A) 1.2 k/uL (1.0-4.8); Lymphocytes % (A) 16 %; MCH 31.5 pg (25.0-35.0); MCHC 32.6 g/dL (31.0-37.0); Mean Platelet Volume 7.6; Monocytes # (A) 0.5 k/uL (0-1.0); Monocytes % (A) 7 %; Neutrophils # (A) 5.8 k/uL (1.3-7.7); Neutrophils % (A) 75 %; Platelet Count 205 k/uL (150-450); RBC 4.11 m/uL (4.30-5.90); RDW 13.2 % (11.5-15.5); WBC 7.6 k/uL (3.8-10.6)
[2018-04-04 10:21] LABS: MCV 96.6 fL (80.0-100.0)
[2018-04-04] MEDS: THIAMINE 100 MG TAB PO SCH ×2 (11:45→17:19)
--- NOTE | 2018-04-04 12:24 | P.PN ---
Subjective Progress Note Date: 04/04/18 Principal diagnosis: Seizures Mr. Osullivan is a 67-year-old male with a past medical history of seizure disorder, bipolar disorder, depression and alcohol abuse brought in by EMS after he was found naked on the floor by his neighbor in his house.patient had a witnessed seizure before EMS arrived. After that he woke up and was able to have a conversation with the EMS personnel. In the ER the patient was seizing again demonstrating a tonic-clonic generalized seizure. As per the ER note it lasted for approximately 2 minutes. As per the paramedics the patient to smell of alcohol. And they found empty beer cans at his residence. In the ER patient had CAT scan of the head and cervical spine-that was negative for any acute intracranial process. His blood work revealed hypernatremia with sodium of 150, ammonia of 30 and leukocytosis of 13. He has been admitted for seizures. On 04/04/2018 - as per the nursing staff report , patient has been getting Ativan 1 mg every 4 hours. He does not have a sitter since last night. This morning patient does much more awake and with it. He knows that he is and [facility] and that he had a seizure and so is in the hospital. Patient mentions that he missed his Keppra for couple of days. On review of systems Constitutional-generalized weakness and fatigue Cardiovascular-no chest pain or palpitations Respiratory-no difficulty in breathing or cough GI-no abdominal pain nausea vomiting or diarrhea -no dysuria or hematuria Active Medications Acetaminophen (Tylenol Tab) 650 mg PO Q4HR PRN PRN Reason: Fever and/ or Pain Last Admin: 04/04/18 09:00 Dose: 650 mg Sodium Chloride (Saline 0.9%) 1,000 mls @ 80 mls/hr IV .[id number] LAUREL Last Admin: 04/04/18 00:20 Dose: 80 mls/hr Levetiracetam (Keppra) [address] [facility] Last Admin: 04/04/18 09:00 Dose: 500 mg Lorazepam (Ativan) 1 mg IV Q2HR PRN PRN Reason: CIWA 8 or 9 Last Admin: 04/04/18 09:01 Dose: 1 mg Lorazepam (Ativan) 1 mg IV Q1HR PRN PRN Reason: CIWA 10 to 15 Last Admin: 04/04/18 05:00 Dose: 1 mg Lorazepam (Ativan) 2 mg IV Q10M PRN PRN Reason: CIWA 16 or higher Stop: 04/05/18 13:14 Naloxone HCl (Narcan) 0.2 mg IV Q2M PRN PRN Reason: Opioid Reversal Nicotine (Habitrol 21mg/24hr Patch) [address] [facility] Last Admin: 04/04/18 09:00 Dose: 1 patch Thiamine HCl (Vitamin B-1) 100 mg PO BID@1200,1700 [facility] Last Admin: 04/04/18 11:45 Dose: 100 mg Objective - Vital Signs Vital signs: Vital Signs Temp 97.5 F L 04/04/18 09:00 Pulse 80 04/04/18 09:00 Resp 16 04/04/18 09:00 BP 128/74 04/04/18 09:00 Pulse Ox 96 04/04/18 09:00 Intake & Output 04/03/18 04/04/18 04/04/18 18:59 06:59 18:59 Intake Total 2040 Output Total 450 Balance 2040 -450 Weight 72.575 kg Intake: Intake, IV Titration 1440 Amount Sodium Chloride 0.9% 1, 800 000 ml @ 100 mls/hr IV . Q10H7M ONE with Mvi, Adult No.4 with Vit K 10 ml with Thiamine 100 mg with Folic Acid 1 mg Rx#: [id number] Sodium Chloride 0.9% 1, 640 000 ml @ 80 mls/hr IV . [id number] [facility] Rx#:[id number] Oral 600 Output: Urine 450 Other: Voiding Method Urinal Incontinent # Voids 1 - Exam GEN. APPEARANCE: Comfortably lying in bed no acute distress HEAD EXAM: atraumatic, normocephalic, normal inspection EYE EXAM: pupils are equal and reactive to light. No pallor. No icterus. NECK EXAM: normal inspection. Absent: tenderness, meningismus, full ROM, lymphadenopathy RESPIRATORY EXAM: bilateral breath sounds are positive. Slightly diminished at the lower lung bases. No wheezes or crackles. CARDIOVASCULAR EXAM: S1 and S2 heard. GI/ABDOMINAL EXAM: abdomen is soft nontender. Bowel sounds are positive. EXTREMITIES EXAM: no peripheral edema NEUROLOGICAL EXAM: Rash and is alert awake oriented 3. No focal neurological deficits. - Labs CBC & Chem 7: 04/04/18 08:55 04/04/18 08:55 Labs: Abnormal Lab Results - Last 24 Hours (Table) 04/04/18 04/04/18 Range/Units 08:55 08:55 RBC 4.11 L (4.30-5.90) m/uL Hgb 12.9 L (13.0-17.5) gm/dL Carbon Dioxide 31 H (22-30) mmol/L Glucose 108 H (74-99) mg/dL Alkaline Phosphatase 36 L (38-126) U/L Assessment and Plan Assessment: ASSESSMENT Generalized tonic-clonic seizure Alcohol intoxication Leukocytosis Hypernatremia Hyperammonemia Plan:patient has been started on IV fluids with thiamine supplements. Ativan when necessary for seizures. We will monitor him for delirium tremens. Patient had a urine analysis done which was for positive for nitrite and small leukocyte esterase and he received a dose of ceftriaxone. Blood cultures and urine cultures pending as the patient spiked a fever of 102.7. Currently there is no identifiable source of infection, it can be secondary to the seizure episode. Leukocytosis trended down from 13-7.6. PT OT recommended. Further recommendations to follow depending on the progress of the patient.
[2018-04-04] MEDS: ENOXAPARIN 40 MG/0.4 ML SYRINGE SQ SCH (21:51)
[2018-04-05] MEDS: LORazepam 2 MG/ML INJ IV PRN ×9 (00:15→20:43)
[2018-04-05] MEDS: NICOTINE 21MG/24HR PATCH TRANSDERM SCH (07:29)
[2018-04-05] MEDS: ENOXAPARIN 40 MG/0.4 ML SYRINGE SQ SCH (07:30)
[2018-04-05] MEDS: levETIRAcetam 500 MG TAB PO SCH ×2 (07:30→20:43)
[2018-04-05] MEDS: THIAMINE 100 MG TAB PO SCH ×2 (07:30→17:17)
--- NOTE | 2018-04-05 12:20 | CDI ---
Documentation Clarification Form Date: 04/05/2018 12:12:24 PM From: Liz TuckerRODO, CCDS Admit Date: 04/03/2018 1:15:00 PM Patient Name: Isreal Osullivan Visit Number: [id number] Discharge Date: ATTENTION: The Clinical Documentation Specialists (CDI) and [facility] Coding Staff appreciate your assistance in clarifying documentation. Please respond to the clarification below the line at the bottom and electronically sign. The CDI & [facility] Coding staff will review the response and follow-up if needed. Please note: Queries are made part of the Legal Health Record. If you have any questions, please contact the author of this message via ITS. Dr. Danielle Buckley or Dr. Michelle Dunn: Per the H/P, the patient is diagnosed with generalized tonic-clonic seizure and alcohol intoxication. The patient drinks 3 25 oz beers per day. History/Risk Factors: Alcoholism with previous withdrawal symptoms & delirium tremens. Seizures. Smoker 1ppd. Clinical Indicators: Presented to ER via EMS after being found at his home on the floor, witnessed seizure before EMS arrived, active seizure in ER. Lab findings: WBC 13.1^, Na 150^, Gluc 148^, Osmolality 323^, Ammonia 230^, Total Protein 8.5^. Alcohol 39. Radiology findings: CXR: neg. CT Brain: Chronic sinus disease. Vital Signs: P 112^, PO 96 2Lnc Treatment: CIWA protocol, IM Thiamine, IV fluid w/Thimaine, IV Ativan x4, IV Rocephin. In your professional opinion, can you please clarify the relationship between the patient's seizures & alcohol dependence? Alcohol related seizure o With Alcohol withdrawal o Without Alcohol withdrawal Seizure unrelated to alcohol, please specify Other, please specify Unable to determine (Last Revision: July 2017) Alcohol related seizure o With Alcohol withdrawal MTDD
[2018-04-05] MEDS: ACETAMINOPHEN TAB 325 MG TAB PO PRN (13:30)
[2018-04-05] MEDS ORDERED: HALOPERIDOL LACTATE 5 MG/ML 1 ML VIAL IM PRN (14:49)
[2018-04-05] MEDS: SODIUM CHLORIDE 0.9% 1,000 ML IV SCH (22:15)
[2018-04-06] MEDS: LORazepam 2 MG/ML INJ IV PRN ×2 (01:42→04:37)
[2018-04-06] MEDS: SODIUM CHLORIDE 0.9% 1,000 ML IV SCH ×2 (04:40→15:29)
[2018-04-06] MEDS: ENOXAPARIN 40 MG/0.4 ML SYRINGE SQ SCH (09:36)
[2018-04-06] MEDS: levETIRAcetam 500 MG TAB PO SCH ×2 (09:36→20:10)
[2018-04-06] MEDS: THIAMINE 100 MG TAB PO SCH ×2 (09:36→16:49)
--- NOTE | 2018-04-07 02:00 | P.PN ---
Subjective Progress Note Date: 04/05/18 Principal diagnosis: Seizures, Alcohol withdrawal symptoms Mr. Osullivan is a 67-year-old male with a past medical history of seizure disorder, bipolar disorder, depression and alcohol abuse brought in by EMS after he was found naked on the floor by his neighbor in his house.patient had a witnessed seizure before EMS arrived. After that he woke up and was able to have a conversation with the EMS personnel. In the ER the patient was seizing again demonstrating a tonic-clonic generalized seizure. As per the ER note it lasted for approximately 2 minutes. As per the paramedics the patient to smell of alcohol. And they found empty beer cans at his residence. In the ER patient had CAT scan of the head and cervical spine-that was negative for any acute intracranial process. His blood work revealed hypernatremia with sodium of 150, ammonia of 30 and leukocytosis of 13. He has been admitted for seizures. On 04/04/2018 - as per the nursing staff report , patient has been getting Ativan 1 mg every 4 hours. He does not have a sitter since last night. This morning patient does much more awake and with it. He knows that he is and [facility] and that he had a seizure and so is in the hospital. Patient mentions that he missed his Keppra for couple of days. 04/05/2018 Patient is still confused and is agitated and trying to get her to the bed. Patient was given a dose of Haldol. Patient is being continued on alcohol withdrawal protocol. Patient has been afebrile and blood cultures showed no growth so far. On review of systems Constitutional-generalized weakness and fatigue Cardiovascular-no chest pain or palpitations Respiratory-no difficulty in breathing or cough GI-no abdominal pain nausea vomiting or diarrhea -no dysuria or hematuria Objective - Vital Signs Vital signs: Vital Signs Temp 97.8 F 04/05/18 14:55 Pulse 78 04/05/18 16:00 Resp 15 04/05/18 16:00 BP 145/97 04/05/18 14:55 Pulse Ox 100 04/05/18 14:55 Intake & Output 04/05/18 04/05/18 04/06/18 06:59 18:59 06:59 Intake Total 2790 Output Total 1 Balance 2789 Intake: Intake, IV Titration 1040 Amount Sodium Chloride 0.9% 1, 1040 000 ml @ 80 mls/hr IV . [id number] [facility] Rx#:[id number] Oral 1750 Output: Urine 1 Other: Voiding Method Toilet Toilet Urinal Urinal Incontinent Incontinent # Voids 3 5 - Exam GEN. APPEARANCE: Comfortably lying in bed no acute distress HEAD EXAM: atraumatic, normocephalic, normal inspection EYE EXAM: pupils are equal and reactive to light. No pallor. No icterus. NECK EXAM: normal inspection. Absent: tenderness, meningismus, full ROM, lymphadenopathy RESPIRATORY EXAM: bilateral breath sounds are positive. Slightly diminished at the lower lung bases. No wheezes or crackles. CARDIOVASCULAR EXAM: S1 and S2 heard. GI/ABDOMINAL EXAM: abdomen is soft nontender. Bowel sounds are positive. EXTREMITIES EXAM: no peripheral edema NEUROLOGICAL EXAM: Rash and is alert awake oriented 3. No focal neurological deficits. - Labs CBC & Chem 7: 04/04/18 08:55 04/04/18 08:55 Labs: Microbiology - Last 24 Hours (Table) 04/03/18 19:03 Blood Culture - Preliminary Blood No Growth after 48 hours Assessment and Plan Assessment: Generalized tonic-clonic seizure Alcohol intoxication Acute alcohol withdrawal symptoms. Leukocytosis Hypernatremia Hyperammonemia Plan:patient has been started on IV fluids with thiamine supplements. Ativan when necessary for seizures. We will monitor him for delirium tremens. Patient had a urine analysis done which was for positive for nitrite and small leukocyte esterase and he received a dose of ceftriaxone. Blood Cultures negative. Patient has been afebrile. Currently there is no identifiable source of infection, it can be secondary to the seizure episode. Leukocytosis trended down from 13-7.6. PT OT recommended. Further recommendations to follow depending on the progress of the patient. Time with Patient: Greater than 30
--- NOTE | 2018-04-07 02:01 | P.PN ---
Subjective Progress Note Date: 04/06/18 Principal diagnosis: Seizures, Alcohol withdrawal symptoms Mr. Osullivan is a 67-year-old male with a past medical history of seizure disorder, bipolar disorder, depression and alcohol abuse brought in by EMS after he was found naked on the floor by his neighbor in his house.patient had a witnessed seizure before EMS arrived. After that he woke up and was able to have a conversation with the EMS personnel. In the ER the patient was seizing again demonstrating a tonic-clonic generalized seizure. As per the ER note it lasted for approximately 2 minutes. As per the paramedics the patient to smell of alcohol. And they found empty beer cans at his residence. In the ER patient had CAT scan of the head and cervical spine-that was negative for any acute intracranial process. His blood work revealed hypernatremia with sodium of 150, ammonia of 30 and leukocytosis of 13. He has been admitted for seizures. On 04/04/2018 - as per the nursing staff report , patient has been getting Ativan 1 mg every 4 hours. He does not have a sitter since last night. This morning patient does much more awake and with it. He knows that he is and [facility] and that he had a seizure and so is in the hospital. Patient mentions that he missed his Keppra for couple of days. 04/05/2018 Patient is still confused and is agitated and trying to get her to the bed. Patient was given a dose of Haldol. Patient is being continued on alcohol withdrawal protocol. Patient has been afebrile and blood cultures showed no growth so far. 04/06/2018 Patient is lying in the bed comfortably. Symptomatic improvement compared to yesterday. Patient is able to follow commands but seems very lethargic. No other acute overnight issues. Anticipate discharge tomorrow with more clinical improvement. On review of systems Constitutional-generalized weakness and fatigue Cardiovascular-no chest pain or palpitations Respiratory-no difficulty in breathing or cough GI-no abdominal pain nausea vomiting or diarrhea -no dysuria or hematuria Objective - Vital Signs Vital signs: Vital Signs Temp 98.3 F 04/06/18 19:15 Pulse 74 04/06/18 19:15 Resp 18 04/06/18 19:15 BP 111/75 04/06/18 19:15 Pulse Ox 94 L 04/06/18 19:15 Intake & Output 04/06/18 04/06/18 04/07/18 06:59 18:59 06:59 Intake Total 940 150 200 Balance 940 150 200 Intake: Oral 940 150 200 Other: Voiding Method Toilet Urinal Diaper Incontinent # Voids 2 2 - Exam GEN. APPEARANCE: Comfortably lying in bed no acute distress HEAD EXAM: atraumatic, normocephalic, normal inspection EYE EXAM: pupils are equal and reactive to light. No pallor. No icterus. NECK EXAM: normal inspection. Absent: tenderness, meningismus, full ROM, lymphadenopathy RESPIRATORY EXAM: bilateral breath sounds are positive. Slightly diminished at the lower lung bases. No wheezes or crackles. CARDIOVASCULAR EXAM: S1 and S2 heard. GI/ABDOMINAL EXAM: abdomen is soft nontender. Bowel sounds are positive. EXTREMITIES EXAM: no peripheral edema NEUROLOGICAL EXAM: Rash and is alert awake oriented 3. No focal neurological deficits. - Labs CBC & Chem 7: 04/04/18 08:55 04/04/18 08:55 Labs: Microbiology - Last 24 Hours (Table) 04/03/18 19:03 Blood Culture - Preliminary Blood No Growth after 72 hours Assessment and Plan Assessment: Generalized tonic-clonic seizure. Continue with Keppra. Alcohol intoxication Acute alcohol withdrawal symptoms. Leukocytosis Hypernatremia Hyperammonemia Plan:patient has been started on IV fluids with thiamine supplements. Ativan when necessary for seizures. We will monitor him for delirium tremens. Patient had a urine analysis done which was for positive for nitrite and small leukocyte esterase and he received a dose of ceftriaxone. Blood Cultures negative. Patient has been afebrile. Currently there is no identifiable source of infection, it can be secondary to the seizure episode. Leukocytosis trended down from 13-7.6. PT OT recommended. Further recommendations to follow depending on the progress of the patient.
[2018-04-07] MEDS: SODIUM CHLORIDE 0.9% 1,000 ML IV SCH ×2 (02:23→17:27)
[2018-04-07 07:20] LABS: Basophils % (A) 0 %; Eosinophils # (A) 0.1 k/uL (0-0.7); Eosinophils % (A) 2 %; HCT 40.7 % (39.0-53.0); HGB 13.2 gm/dL (13.0-17.5); Lymphocytes # (A) 1.2 k/uL (1.0-4.8); Lymphocytes % (A) 17 %; MCH 31.7 pg (25.0-35.0); MCHC 32.5 g/dL (31.0-37.0); MCV 97.5 fL (80.0-100.0); Mean Platelet Volume 7.3; Monocytes # (A) 0.7 k/uL (0-1.0); Monocytes % (A) 10 %; Neutrophils # (A) 4.5 k/uL (1.3-7.7); Neutrophils % (A) 67 %; Platelet Count 216 k/uL (150-450); RBC 4.17 m/uL (4.30-5.90); RDW 13.2 % (11.5-15.5); WBC 6.7 k/uL (3.8-10.6)
[2018-04-07 07:46] LABS: Anion Gap 6 mmol/L; Blood Urea Nitrogen 16 mg/dL (9-20); Calcium 9.5 mg/dL (8.4-10.2); Carbon Dioxide 29 mmol/L (22-30); Chloride 106 mmol/L (98-107); Glucose 103 mg/dL (74-99); Sodium 141 mmol/L (137-145)
[2018-04-07] MEDS: ENOXAPARIN 40 MG/0.4 ML SYRINGE SQ SCH (08:38)
[2018-04-07] MEDS: levETIRAcetam 500 MG TAB PO SCH ×2 (08:38→19:05)
[2018-04-07] MEDS: NICOTINE 21MG/24HR PATCH TRANSDERM SCH (08:38)
[2018-04-07] MEDS: THIAMINE 100 MG TAB PO SCH ×2 (12:11→17:28)
--- NOTE | 2018-04-07 22:12 | CONS ---
CONSULTATION DATE OF CONSULTATION: 04/07/2018 CHIEF COMPLAINT: Seizures. HISTORY OF PRESENT ILLNESS: Mr. Osullivan is a pleasant 67-year-old male who is being evaluated by the neurology service per the request of Dr. Buckley for seizures. According to the patient, he does have history of seizure disorder, but most of his seizures occur with alcohol withdrawals. He does have history of alcohol abuse but states he quit drinking this past . The patient does take Keppra 500 mg b.i.d. at home. He informs me that he was arrested for 4 days and did not have access to the Keppra. After 4 days of being without Keppra and without having any alcoholic beverages, he suffered 2 generalized tonic colonic seizures. He was admitted to the hospital on 04/03/2018 and his Keppra was restarted. He did have another seizure in the emergency room, but he has been seizure-free since then. A CT scan of the brain was done which showed an old infarct involving the right middle cerebral artery distribution. The patient is aware of a history of a stroke and does take aspirin 81 mg daily at home. He reports occasional dysarthria, which is the only residual symptom from his stroke. His CBC, basic metabolic profile and urine drug screen were normal. His serum alcohol level was 39. His ammonia level was elevated at 230. At the time of my evaluation, he is lying in his bed and appears to be in no acute distress. He is quite awake and oriented and denies any neurological symptoms at this time. PAST MEDICAL HISTORY: 1. Seizure disorder. 2. Alcohol abuse. 3. History of previous delirium tremens. 4. Bipolar disorder. 5. Depression. SOCIAL HISTORY: The patient drinks alcohol daily but states that he quit drinking this past . As mentioned above, the patient was arrested on . He does smoke cigarettes daily. He denies any drug use. FAMILY HISTORY: Positive for diabetes and alcoholism. HOME MEDICATIONS: Reviewed in the chart. ALLERGIES: NO KNOWN DRUG ALLERGIES. REVIEW OF SYSTEMS: CONSTITUTIONAL: Negative. EYES: Negative. ENT: Negative. CARDIOVASCULAR: Negative. RESPIRATORY: Negative. NEUROLOGICAL: As mentioned above. GASTROINTESTINAL: Negative. GENITOURINARY: Negative. PSYCHIATRIC: As mentioned above. MUSCULOSKELETAL: Positive for occasional joint pain and low back pain. ENDOCRINE: Negative. DERMATOLOGICAL: Negative. PHYSICAL EXAMINATION: Vital signs show a temperature of 99.1, pulse 82, respirations 17, blood pressure 137/85. GENERAL APPEARANCE: The patient is a thin elderly male who appears to be in no acute distress. HEENT: Normocephalic, atraumatic. No facial asymmetry is seen. NECK: Supple with no masses felt. CARDIOVASCULAR: Regular rate and rhythm. ABDOMEN: Nontender, nondistended. Extremities showed no edema or clubbing. NEUROLOGICAL EXAM: The patient is awake and oriented x3. Speech and language are normal. Strength is full in all 4 extremities. Sensory exam was normal to light touch in all 4 extremities. No facial asymmetry is seen on cranial nerve testing. No tremors or seizure-like activity is seen. IMPRESSION: 1. Seizure disorder. 2. History of alcohol abuse. 3. History of ischemic stroke. 4. Medication noncompliance. RECOMMENDATION: The patient did have multiple breakthrough seizures which were described as generalized tonic colonic seizures. His seizures were likely a combination of both medication noncompliance and alcohol withdrawals. His last Keppra dose prior to arrival was last . Also, he stopped drinking alcohol last . The patient is back to his baseline at this time, and no further seizures have been reported. Continue Keppra at the current dose of 500 mg b.i.d. The patient was counseled extensively on alcohol and tobacco cessation. I will repeat a serum ammonia level. From a neurology standpoint, the patient is cleared for discharge. Continue aspirin therapy for his history of ischemic stroke. Thank you for allowing me to participate in the care of your patient. If you have any questions, please feel free to contact me. PATRICIA / EMELIN: [id number] /
--- NOTE | 2018-04-07 23:08 | DS ---
DISCHARGE SUMMARY FINAL DIAGNOSES: 1. Generalized tonic-clonic seizures on Keppra. 2. Alcohol intoxication. 3. Acute alcohol withdrawal symptoms. 4. Leukocytosis. 5. Hyponatremia. 6. Hyperammonemia. 7. Previous right MCA infarct. DISCHARGE DISPOSITION: The patient is being discharged in stable condition with guarded prognosis. HISTORY OF PRESENT ILLNESS: This 67-year-old gentleman with past medical history of multiple medical problems was admitted with recurrent seizures. The patient also had alcohol issues. The patient was started on Keppra. Patient improved significantly. On exam, vitals are stable. Cardiovascular S1, S2. Abdomen soft. Nervous system: No focal deficits. Neurovascular workup is negative at this time. Neurology was consulted. The patient being discharged in stable condition with guarded prognosis. DISCHARGE ADVICE AND MEDICATIONS: 1. Diet is cardiac diet. 2. Activity limited until follow up. 3. Follow up with Dr. Singer in 2-3 days. 4. Follow up with Dr. Ruelas in 2 weeks. MEDICATIONS ARE: 1. Folic acid 1 mg daily. 2. Keppra 500 mg p.o. b.i.d. 3. Multivitamins one p.o. daily. 4. Habitrol 21 daily. 5. Thiamine 100 mg daily. 6. Ecotrin 81 mg. MMODL / IJN: [id number] /
[2018-04-07] MEDS: LORazepam 2 MG/ML INJ IV PRN (23:52)
[2018-04-08 07:02] VITALS: TEMP 98.5
[2018-04-08] MEDS: SODIUM CHLORIDE 0.9% 1,000 ML IV SCH (07:22)
[2018-04-08] MEDS: ENOXAPARIN 40 MG/0.4 ML SYRINGE SQ SCH (09:33)
[2018-04-08] MEDS: NICOTINE 21MG/24HR PATCH TRANSDERM SCH (09:33)
[2018-04-08] MEDS: levETIRAcetam 500 MG TAB PO SCH (09:33)
[2018-04-08] MEDS: LORazepam 2 MG/ML INJ IV PRN (09:41)
--- NOTE | 2018-04-08 10:54 | DS ---
DISCHARGE SUMMARY DATE OF SERVICE: 04/08/2018 This is a 67-year-old gentleman admitted with seizure disorder, also history of alcohol abuse. The patient improved significantly. Neurology recommended Keppra. The patient will be discharged in a stable condition with guarded prognosis. Repeat ammonia is normal. PHYSICAL EXAM: patient is alert, oriented x3. CARDIOVASCULAR: S1, S2. ABDOMEN: Soft. NERVOUS SYSTEM: No focal deficits. Please refer to the previous dictation for discharge diagnoses and discharge medications. MMODL / IJN: [id number] /
--- NOTE | 2018-04-08 11:01 | PN ---
PROGRESS NOTE DATE OF SERVICE: 04/07/2018 This is a 66-year-old gentleman admitted with acute seizure disorder. Patient also as history of EtOH. No chest pain. No palpitations. No fever. PHYSICAL EXAM: Alert and oriented x3. The pulse is 74, blood pressure 111/75, respiration 18, temperature 98.2, pulse ox 94% on room air skin: HEENT: Conjunctivae normal. NECK: No jugular venous distension. CARDIAC: S1, S2, muffled. RESPIRATORY: Breath sounds diminished at the bases. No rhonchi, no crackles. ABDOMEN: Soft, nontender. LEGS: No edema, no swelling. NERVOUS SYSTEM: No focal deficits. LABS: Noted, CBC and CMP noted. ASSESSMENT: 1. Generalized tonic-clonic seizures on Keppra. 2. Alcohol intoxication. 3. Alcohol withdrawal symptoms. 4. Leukocytosis. 5. Hyponatremia. 6. Hyperammonemia. 7. Previous right MCA infarct. RECOMMENDATIONS: Recommend to continue current management of antiplatelet agents. Continue with the Keppra. Neurology evaluation. Further recommendations to follow. MMODL / IJN: [id number] /
[2018-04-08] MEDS: THIAMINE 100 MG TAB PO SCH ×2 (13:13→17:48)
[2018-04-08 15:38] VITALS: BP 168/92; PULSE 82; RESP 18
== END 2018-04-08 18:31 | disposition home or self-care (01) | DRG 101 ==
LOC: EC 09:03 → 4SSUR 13:15
PROVIDERS: ADMIT Internal Medicine; ATTEND Internal Medicine
DX: G40.409 Other generalized epilepsy and epileptic syndromes, not intractable, without status epilepticus (principal); E72.20 Disorder of urea cycle metabolism, unspecified; E87.0 Hyperosmolality and hypernatremia; F10.239 Alcohol dependence with withdrawal, unspecified; N39.0 Urinary tract infection, site not specified; E86.0 Dehydration; F10.229 Alcohol dependence with intoxication, unspecified; F17.210 Nicotine dependence, cigarettes, uncomplicated; F31.9 Bipolar disorder, unspecified; I69.322 Dysarthria following cerebral infarction; Z79.82 Long term (current) use of aspirin; Z81.1 Family history of alcohol abuse and dependence; Z83.3 Family history of diabetes mellitus; Z91.14 Patient's other noncompliance with medication regimen; Y90.1 Blood alcohol level of 20-39 mg/100 ml
CPT/HCPCS: 36415; 70450; 71045; 72125; 80048; 80053; 80306; 80320; 81001; 82140; 82150; 82550; 82553; 83690; 83735; 83880; 83930; 84443; 84484; 85025; 87040; 93005; 96365; 96366; 96375; 96376; 99291

== ENCOUNTER 2018-04-12 13:25 | Inpatient (IN) | payer MEDICARE, OTHER ==
[2018-04-12] MEDS ORDERED: SODIUM CHLORIDE 0.9% 500 ML 500 ML IV STA (14:12)
[2018-04-12] MEDS ORDERED: LORazepam 2 MG/ML INJ IV PRN ×3 (14:19)
[2018-04-12] MEDS ORDERED: THIAMINE 100 MG/ML 2 ML VIAL IM STA (14:19)
--- NOTE | 2018-04-12 14:40 | ED ---
General Adult HPI - General Chief complaint: Seizure Stated complaint: Seizure, Anxiety Source: patient, RN notes reviewed, old records reviewed Mode of arrival: EMS Limitations: no limitations - History of Present Illness Initial comments: 67-year-old male patient past medical history of epilepsy, generalized seizure disorder, delirium tremens, alcohol abuse, presents to ED for seizure. Patient states that he was sitting on bed of hotel room when he began to seize, patient states that he rolled back onto the bed and continued tonic-clonic like seizure activity. Patient denies any loss of consciousness. Patient denies any fall or trauma. Patient states that the seizure lasted for approximately 15-20 minutes. Patient denies any current complaints. Patient called EMS and was transported to Hospital. Patient was recently admitted at Hospital from 04/03 to 04/09 for delirium tremens. Patient admits to alcohol use yesterday. Patient denies ETOH use today. Patient denies recreational drug use. Patient denies chest pain, shortness of breath, headache, changes in vision, cervical spinal pain, fall, trauma, loss of consciousness, abdominal pain, nausea vomiting diarrhea, fever or chills, IV drug use. Systemic: Pt denies fatigue, myalgia, fever/chills, rash. Pt denies weakness, night sweats, weight loss. Neuro: Pt denies headache, visual disturbances, syncope or pre-syncope. HEENT: Pt denies ocular discharge or irritation, otalgia, rhinorrhea, pharyngitis or notable lymphadenopathy. Cardiopulmonary: Pt denies chest pain, SOB, heart palpitations, dyspnea on exertion. Abdominal/GI: Pt denies abdominal pain, n/v/d. : Pt denies dysuria, burning w/ urination, frequency/urgency. Denies new onset urinary or bowel incontinence. MSK: Pt denies myalgia, loss of strength or function in extremities. Neuro: Pt denies new onset weakness, paresthesias. - Related Data Home Medications Medication Instructions Recorded Confirmed Multivitamin,Therapeutic [Thera] 1 tab PO DAILY 04/12/18 04/12/18 Previous Rx's Medication Instructions Recorded levETIRAcetam [Keppra] 500 mg PO BID #30 tab 01/05/18 Aspirin EC [Ecotrin Low Dose] 81 mg PO DAILY #30 tablet. 04/07/18 Folic Acid 1 mg PO DAILY@1200 #30 tablet 04/07/18 Multivitamins, Thera [Multivitamin 1 tab PO DAILY@1200 #30 tablet 04/07/18 (formulary)] Thiamine [Vitamin B-1] 100 mg PO DAILY@1200 #30 tab 04/07/18 Allergies Allergy/AdvReac Type Severity Reaction Status Date / Time No Known Allergies Allergy Verified 04/12/18 13:38 Review of Systems ROS Statement: Those systems with pertinent positive or pertinent negative responses have been documented in the HPI. ROS Other: All systems not noted in ROS Statement are negative. Past Medical History Past Medical History: No Reported History, Unable to Obtain Additional Past Medical History / Comment(s): ETOH abuse with past withdrawal DTs and seizures, R foot fracture 1 year ago-not healing properly, er Dr. Singer office visit note, pt recently seen 07/12/17 with perianal abscess. History of Any Multi-Drug Resistant Organisms: None Reported Past Surgical History: No Surgical Hx Reported, Unable to Obtain Additional Past Surgical History / Comment(s): Pt states he has never had surgery but his sonAlexandre believes he has recently had a colonoscopy. Past Anesthesia/Blood Transfusion Reactions: No Reported Reaction Past Psychological History: No Psychological Hx Reported Smoking Status: Current some day smoker Past Alcohol Use History: Daily Past Drug Use History: None Reported - Past Family History Father History Unknown: Yes Family Medical History: Diabetes Mellitus Additional Family Medical History / Comment(s): Father was an alcoholic. Mother History Unknown: Yes Family Medical History: Diabetes Mellitus General Exam - General Exam Comments Initial Comments: Constitutional: NAD, AOX3, Pt has pleasant affect. Patient mildly tremulous on exam. HEENT: NC/AT, trachea midline, neck supple, no lymphadenopathy. Posterior pharynx non erythematous, without exudates. External ears appear normal, without discharge. Mucous membranes moist. Eyes PERRLA, EOM intact. There is no scleral icterus. No pallor noted. Cardiopulmonary: RRR, no murmurs, rubs or gallops, no JVD noted. Lungs CTAB in anterior and posterior hallman. No peripheral edema. Abdominal exam: Abdomen soft and non-distended. Abdomen non-tender to palpation in all 4 quadrants. Bowel sounds active in LLQ. No hepatosplenomegaly. No ecchymosis Neuro: CN II-XII intact. No nuchal rigidity. No cervical spine tenderness. Extraocular movements intact. Full active range of motion and sensation in all extremities. MSK: No posterior calf tenderness bilaterally, homans sign negative bilaterally. Posterior tibialis and radial pulse +2 bilaterally. Sensation intact in upper and lower extremities. Full active ROM in upper and lower extremities, 5/5 stregnth. Limitations: no limitations Course Vital Signs 04/12/18 04/12/18 04/12/18 13:38 14:40 15:40 Temperature 97.8 F Pulse Rate 84 81 75 Respiratory 16 18 20 Rate Blood Pressure 151/98 146/97 135/95 O2 Sat by Pulse 100 98 96 Oximetry 04/12/18 04/12/18 04/12/18 15:49 16:29 18:02 Temperature 100.2 F H 100.4 F H Pulse Rate 75 81 72 Respiratory 18 16 16 Rate Blood Pressure 150/93 139/92 146/94 O2 Sat by Pulse 100 98 97 Oximetry 04/12/18 20:00 Temperature 98.0 F Pulse Rate 66 Respiratory 15 Rate Blood Pressure 146/96 O2 Sat by Pulse 99 Oximetry Medical Decision Making - Medical Decision Making 67-year-old male patient past medical history of seizure disorder, ETOH abuse, delirium tremens presents to ED after sustaining a seizure earlier today. Patient did did not lose consciousness, fall, or sustained trauma to head or neck. Upon presenting to ED patient neuro exam was within normal limits. Cardiopulmonary and abdominal exam within normal limits. Laboratory investigations revealed hypokalemia, hypocalcemia, hypomagnesemia. Chest x-ray displayed possible pneumonia. EKG was not suspicious for acute pathology. Patient started on IV antibiotics, electrolyte replacement therapy. Patient admitted to Dr. Costa. Case discussed with Dr. Maradiaga. - Lab Data Result diagrams: 04/14/18 08:50 04/14/18 08:50 Lab Results 04/12/18 04/12/18 04/12/18 Range/Units 14:00 14:40 14:40 WBC 10.9 H (3.8-10.6) k/uL RBC 4.20 L (4.30-5.90) m/uL Hgb 13.9 (13.0-17.5) gm/dL Hct 40.1 (39.0-53.0) % MCV 95.5 (80.0-100.0) fL MCH 33.1 (25.0-35.0) pg MCHC 34.7 (31.0-37.0) g/dL RDW 12.6 (11.5-15.5) % Plt Count 231 (150-450) k/uL Neutrophils % 87 % Lymphocytes % 7 % Monocytes % 5 % Eosinophils % 0 % Basophils % 0 % Neutrophils # 9.4 H (1.3-7.7) k/uL Lymphocytes # 0.8 L (1.0-4.8) k/uL Monocytes # 0.6 (0-1.0) k/uL Eosinophils # 0.0 (0-0.7) k/uL Basophils # 0.0 (0-0.2) k/uL PT 11.3 (9.0-12.0) sec INR 1.1 (<1.2) Sodium (137-145) mmol/L Potassium (3.5-5.1) mmol/L Chloride (98-107) mmol/L Carbon Dioxide (22-30) mmol/L Anion Gap mmol/L BUN (9-20) mg/dL Creatinine (0.66-1.25) mg/dL Est GFR (CKD-EPI)AfAm (>60 ml/min/1.73 sqM) Est GFR (CKD-EPI)NonAf (>60 ml/min/1.73 sqM) Glucose (74-99) mg/dL POC Glucose (mg/dL) (75-99) mg/dL POC Glu Motorcycle Delivery Driver ID Calcium (8.4-10.2) mg/dL Magnesium (1.6-2.3) mg/dL Total Bilirubin (0.2-1.3) mg/dL AST (17-59) U/L ALT (21-72) U/L Alkaline Phosphatase (38-126) U/L Ammonia 16 (<30) umol/L Troponin I (0.000-0.034) ng/mL Total Protein (6.3-8.2) g/dL Albumin (3.5-5.0) g/dL Urine Color Urine Appearance (Clear) Urine pH (5.0-8.0) Ur Specific [place] (1.001-1.035) Urine Protein (Negative) Urine Glucose (UA) (Negative) Urine Ketones (Negative) Urine Blood (Negative) Urine Nitrite (Negative) Urine Bilirubin (Negative) Urine Urobilinogen (<2.0) mg/dL Ur Leukocyte Esterase (Negative) Urine RBC (0-5) /hpf Urine WBC (0-5) /hpf Urine Mucus (None) /hpf Urine Opiates Screen (NotDetected) Ur Oxycodone Screen (NotDetected) Urine Methadone Screen (NotDetected) Ur Propoxyphene Screen (NotDetected) Ur Barbiturates Screen (NotDetected) U Tricyclic Antidepress (NotDetected) Levetiracetam (3.0-60.0) ug/mL Ur Phencyclidine Scrn (NotDetected) Ur Amphetamines Screen (NotDetected) U Methamphetamines Scrn (NotDetected) U Benzodiazepines Scrn (NotDetected) Urine Cocaine Screen (NotDetected) U Marijuana (THC) Screen (NotDetected) Serum Alcohol mg/dL 04/12/18 04/12/18 04/12/18 Range/Units 14:40 14:40 14:40 WBC (3.8-10.6) k/uL RBC (4.30-5.90) m/uL Hgb (13.0-17.5) gm/dL Hct (39.0-53.0) % MCV (80.0-100.0) fL MCH (25.0-35.0) pg MCHC (31.0-37.0) g/dL RDW (11.5-15.5) % Plt Count (150-450) k/uL Neutrophils % % Lymphocytes % % Monocytes % % Eosinophils % % Basophils % % Neutrophils # (1.3-7.7) k/uL Lymphocytes # (1.0-4.8) k/uL Monocytes # (0-1.0) k/uL Eosinophils # (0-0.7) k/uL Basophils # (0-0.2) k/uL PT (9.0-12.0) sec INR (<1.2) Sodium 140 (137-145) mmol/L Potassium 3.0 L (3.5-5.1) mmol/L Chloride 111 H (98-107) mmol/L Carbon Dioxide 19 L (22-30) mmol/L Anion Gap 10 mmol/L BUN 16 (9-20) mg/dL Creatinine 0.59 L (0.66-1.25) mg/dL Est GFR (CKD-EPI)AfAm >90 (>60 ml/min/1.73 sqM) Est GFR (CKD-EPI)NonAf >90 (>60 ml/min/1.73 sqM) Glucose 83 (74-99) mg/dL POC Glucose (mg/dL) (75-99) mg/dL POC Glu Motorcycle Delivery Driver ID Calcium 7.7 L (8.4-10.2) mg/dL Magnesium 1.4 L (1.6-2.3) mg/dL Total Bilirubin 0.5 (0.2-1.3) mg/dL AST 31 (17-59) U/L ALT 35 (21-72) U/L Alkaline Phosphatase 33 L (38-126) U/L Ammonia (<30) umol/L Troponin I 0.014 (0.000-0.034) ng/mL Total Protein 6.4 (6.3-8.2) g/dL Albumin 3.3 L (3.5-5.0) g/dL Urine Color Yellow Urine Appearance Clear (Clear) Urine pH 5.5 (5.0-8.0) Ur Specific [place] 1.009 (1.001-1.035) Urine Protein 1+ H (Negative) Urine Glucose (UA) Negative (Negative) Urine Ketones Negative (Negative) Urine Blood Small H (Negative) Urine Nitrite Negative (Negative) Urine Bilirubin Negative (Negative) Urine Urobilinogen <2.0 (<2.0) mg/dL Ur Leukocyte Esterase Negative (Negative) Urine RBC 3 (0-5) /hpf Urine WBC 1 (0-5) /hpf Urine Mucus Rare H (None) /hpf Urine Opiates Screen Not Detected (NotDetected) Ur Oxycodone Screen Not Detected (NotDetected) Urine Methadone Screen Not Detected (NotDetected) Ur Propoxyphene Screen Not Detected (NotDetected) Ur Barbiturates Screen Not Detected (NotDetected) U Tricyclic Antidepress Not Detected (NotDetected) Levetiracetam (3.0-60.0) ug/mL Ur Phencyclidine Scrn Not Detected (NotDetected) Ur Amphetamines Screen Not Detected (NotDetected) U Methamphetamines Scrn Not Detected (NotDetected) U Benzodiazepines Scrn Not Detected (NotDetected) Urine Cocaine Screen Not Detected (NotDetected) U Marijuana (THC) Screen Not Detected (NotDetected) Serum Alcohol <10 mg/dL 04/12/18 04/12/18 Range/Units 14:40 15:39 WBC (3.8-10.6) k/uL RBC (4.30-5.90) m/uL Hgb (13.0-17.5) gm/dL Hct (39.0-53.0) % MCV (80.0-100.0) fL MCH (25.0-35.0) pg MCHC (31.0-37.0) g/dL RDW (11.5-15.5) % Plt Count (150-450) k/uL Neutrophils % % Lymphocytes % % Monocytes % % Eosinophils % % Basophils % % Neutrophils # (1.3-7.7) k/uL Lymphocytes # (1.0-4.8) k/uL Monocytes # (0-1.0) k/uL Eosinophils # (0-0.7) k/uL Basophils # (0-0.2) k/uL PT (9.0-12.0) sec INR (<1.2) Sodium (137-145) mmol/L Potassium (3.5-5.1) mmol/L Chloride (98-107) mmol/L Carbon Dioxide (22-30) mmol/L Anion Gap mmol/L BUN (9-20) mg/dL Creatinine (0.66-1.25) mg/dL Est GFR (CKD-EPI)AfAm (>60 ml/min/1.73 sqM) Est GFR (CKD-EPI)NonAf (>60 ml/min/1.73 sqM) Glucose (74-99) mg/dL POC Glucose (mg/dL) 101 H (75-99) mg/dL POC Glu Motorcycle Delivery Driver ID Calcium (8.4-10.2) mg/dL Magnesium (1.6-2.3) mg/dL Total Bilirubin (0.2-1.3) mg/dL AST (17-59) U/L ALT (21-72) U/L Alkaline Phosphatase (38-126) U/L Ammonia (<30) umol/L Troponin I (0.000-0.034) ng/mL Total Protein (6.3-8.2) g/dL Albumin (3.5-5.0) g/dL Urine Color Urine Appearance (Clear) Urine pH (5.0-8.0) Ur Specific [place] (1.001-1.035) Urine Protein (Negative) Urine Glucose (UA) (Negative) Urine Ketones (Negative) Urine Blood (Negative) Urine Nitrite (Negative) Urine Bilirubin (Negative) Urine Urobilinogen (<2.0) mg/dL Ur Leukocyte Esterase (Negative) Urine RBC (0-5) /hpf Urine WBC (0-5) /hpf Urine Mucus (None) /hpf Urine Opiates Screen (NotDetected) Ur Oxycodone Screen (NotDetected) Urine Methadone Screen (NotDetected) Ur Propoxyphene Screen (NotDetected) Ur Barbiturates Screen (NotDetected) U Tricyclic Antidepress (NotDetected) Levetiracetam <1.0 (3.0-60.0) ug/mL Ur Phencyclidine Scrn (NotDetected) Ur Amphetamines Screen (NotDetected) U Methamphetamines Scrn (NotDetected) U Benzodiazepines Scrn (NotDetected) Urine Cocaine Screen (NotDetected) U Marijuana (THC) Screen (NotDetected) Serum Alcohol mg/dL Disposition Clinical Impression: HCAP (healthcare-associated pneumonia), Electrolyte abnormality, Seizure, Alcohol related seizure Disposition[facility] Condition: Fair Is patient prescribed a controlled substance at d/c from ED?: No
[2018-04-12 15:07] LABS: Appearance,Urine Clear (Clear); Bilirubin,Urine Negative (Negative); Blood,Urine Small (Negative); Color,Urine Yellow; Glucose,Urine (UA) Negative (Negative); Ketones,Urine Negative (Negative); Leukocyte Esterase,Urine Negative (Negative); Mucus,Urine Rare /hpf; Nitrite,Urine Negative (Negative); PH, Urine 5.5 (5.0-8.0); Protein,Urine 1+ (Negative); RBC,Urine 3 /hpf (0-5); Specific Gravity,Urine 1.009 (1.001-1.035); Urobilinogen,Urine <2.0 mg/dL (<2.0)
[2018-04-12 15:10] LABS: Basophils % (A) 0 %; Eosinophils % (A) 0 %; HCT 40.1 % (39.0-53.0); HGB 13.9 gm/dL (13.0-17.5); Lymphocytes # (A) 0.8 k/uL (1.0-4.8); Lymphocytes % (A) 7 %; MCH 33.1 pg (25.0-35.0); MCHC 34.7 g/dL (31.0-37.0); MCV 95.5 fL (80.0-100.0); Mean Platelet Volume 8.4; Monocytes # (A) 0.6 k/uL (0-1.0); Monocytes % (A) 5 %; Neutrophils # (A) 9.4 k/uL (1.3-7.7); Neutrophils % (A) 87 %; Platelet Count 231 k/uL (150-450); RDW 12.6 % (11.5-15.5); WBC 10.9 k/uL (3.8-10.6)
[2018-04-12 15:16] LABS: Amphetamine Screen,Urine Not Detected (NotDetected); Barbiturate Screen,Urine Not Detected (NotDetected); Benzodiazepines Screen,Urine Not Detected (NotDetected); Cocaine Screen,Urine Not Detected (NotDetected); Methadone Screen, Urine Not Detected (NotDetected); Opiate Screen,Urine Not Detected (NotDetected); Oxycodone Screen, Urine Not Detected (NotDetected); Phencyclidine Screen,Urine Not Detected (NotDetected); Tricyclic Antidepressant,Urine Not Detected (NotDetected); Urn Cannabinoid Scrn Not Detected (NotDetected)
--- NOTE | 2018-04-12 15:39 | XR ---
EXAMINATION TYPE: XR chest 2V DATE OF EXAM: 04/12/2018 COMPARISON: 04/03/2018 HISTORY: 67-year-old male seizure activity, pain TECHNIQUE: AP and lateral views FINDINGS: Heart normal size. Aorta and pulmonary vasculature within normal limits. Hyperinflation with chronic calcifications left mid lung possibly calcified granulomas. There is patchy posterior basilar opacity on the right blunting the costophrenic angle. No sizable effusion. IMPRESSION: Suspect underlying COPD with prior granulomatous disease. There is new patchy right basilar opacity t hat could represent atelectasis or developing pneumonia.
[2018-04-12 15:46] LABS: ALT 35 U/L (21-72); AST 31 U/L (17-59); Albumin 3.3 g/dL (3.5-5.0); Alcohol <10 mg/dL; Alkaline Phosphatase 33 U/L (38-126); Anion Gap 10 mmol/L; Blood Urea Nitrogen 16 mg/dL (9-20); Calcium 7.7 mg/dL (8.4-10.2); Carbon Dioxide 19 mmol/L (22-30); Chloride 111 mmol/L (98-107); Glucose 83 mg/dL (74-99); Magnesium 1.4 mg/dL (1.6-2.3); Sodium 140 mmol/L (137-145); Total Bilirubin 0.5 mg/dL (0.2-1.3); Total Protein 6.4 g/dL (6.3-8.2)
[2018-04-12 15:51] LABS: Glucose,Whole Blood 101 mg/dL (75-99)
[2018-04-12] MEDS ORDERED: Potassium Replacement Protocol 1 EACH MISC MISCELLANE PRN (16:18)
[2018-04-12] MEDS ORDERED: Magnesium Replacement Protocol 1 EACH MISC MISCELLANE PRN (16:33)
[2018-04-12] MEDS ORDERED: LEVOFLOXACIN 750MG-D5W PMX 750 MG in DEXTROSE/WATER 1 150ML.BAG IVPB STA (16:35)
[2018-04-12] MEDS ORDERED: NALOXONE 0.4 MG/ML 1 ML VIAL IV PRN (16:40)
[2018-04-12] MEDS ORDERED: IBUPROFEN 400 MG TAB PO PRN (16:40)
[2018-04-12] MEDS ORDERED: ACETAMINOPHEN TAB 325 MG TAB PO PRN (16:40)
[2018-04-12] MEDS ORDERED: PIPERACILLIN-TAZOBACTAM 3.375 GM in SODIUM CHLORIDE 0.9% 100 ML IVPB ONE (17:00)
[2018-04-12] MEDS: MAGNESIUM SULFATE-D5W PMX 1 GM in DEXTROSE/WATER 1 100ML.BAG IVPB SCH ×3 (17:06→19:26)
[2018-04-12] MEDS: POTASSIUM CHLORIDE ER 20 MEQ TAB.ER PO SCH ×2 (17:06→18:07)
[2018-04-12] MEDS ORDERED: IPRATROPIUM-ALBUTEROL 3 ML NEB INHALATION PRN (20:16)
[2018-04-12] MEDS ORDERED: cloNIDine HCL 0.1 MG TAB PO PRN (20:17)
[2018-04-12] MEDS ORDERED: ALPRAZolam 0.25 MG TAB PO PRN (20:17)
[2018-04-12] MEDS ORDERED: TEMAZEPAM 15 MG CAP PO PRN (20:17)
[2018-04-12] MEDS ORDERED: HYDROcodone/APAP 5-325MG 1 EACH TAB PO PRN (20:17)
[2018-04-12 20:32] LABS: INR 1.1 (<1.2); Prothrombin Time 11.3 sec (9.0-12.0)
[2018-04-12] MEDS: ATORVASTATIN 20 MG TAB PO SCH (21:39)
[2018-04-12] MEDS: HEPARIN SODIUM,PORCINE 5,000 UNIT/ML 1 ML VIAL SQ SCH (21:39)
[2018-04-12] MEDS: THIAMINE 100 MG TAB PO SCH (21:39)
[2018-04-12] MEDS: levETIRAcetam 500 MG TAB PO SCH (21:39)
--- NOTE | 2018-04-12 23:08 | HP ---
HISTORY AND PHYSICAL DATE OF SERVICE: 04/12/2018 CHIEF COMPLAINT: Seizure disorder. HISTORY OF PRESENT ILLNESS: This 67-year-old gentleman with a past medical history of multiple medical problems including generalized tonic clonic, seizure, history of EtOH was recently admitted with seizure disorder. The patient was treated with Keppra. Patient improved significantly. Patient went home and apparently patient was sober, but patient does not have a place to stay. The patient is living in a motel and the patient was apparently started drinking and the patient has withdrawal reaction seizure disorder. The patient came to [facility] ER and was admitted for further evaluation and treatment. The patient has seen Dr. Ruelas during the previous admission and Case Management was also involved in the care. The patient also being followed by Dr. Singer in the outpatient setting. There is no history of fever, rigors. No history of headache, loss of consciousness, seizures at this time. PAST MEDICAL HISTORY: Of EtOH, history of seizure disorder, history of perineal abscess. MEDICATIONS ARE: 1. Keppra 500 mg p.o. b.i.d. 2. Vitamin B1 100 mg. 3. Multivitamins one p.o. daily. 4. Folic acid 1 mg. 5. Aspirin 81 mg. ALLERGIES: None. FAMILY HISTORY: History of diabetes mellitus, history of alcohol in the family. SOCIAL HISTORY: History of alcohol. History of nicotine dependence. REVIEW OF SYSTEMS: ENT: No diminished hearing or vision. CARDIOVASCULAR SYSTEM: No angina or palpitations. RESPIRATORY: No cough. GI no nausea or vomiting. no dysuria. NERVOUS SYSTEM: No numbness, weakness. ALLERGY/IMMUNOLOGY: No asthma or hayfever. MUSCULOSKELETAL: As mentioned earlier. HEMATOLOGY/ONCOLOGY: No history anemia. ENDOCRINE: No history of diabetes or hypothyroidism. CONSTITUTIONAL: As mentioned earlier. Dermatology: Negative. Rheumatology: Negative. Psychiatry: As mentioned earlier. PHYSICAL EXAMINATION: GENERAL: Alert and oriented x3. Pulse is 72. Blood pressure is 140/94, respiration 16, temperature 100.4, pulse ox 97% on room air. HEENT: Conjunctivae normal. Oral mucosa moist. NECK: No jugular venous distention. No carotid bruit. No lymph node enlargement. CARDIOVASCULAR SYSTEM: S1, S2 muffled. RESPIRATORY SYSTEM: Breath sounds diminished at the bases. Few rhonchi. No crackles. ABDOMEN: Soft, nontender. No mass palpable. LEGS: No edema. No swelling. Nervous system: Higher functions as mentioned earlier. Moves all four extremities. No focal deficits. Lymphatics: No lymph nodes palpable in the neck, axillae or groin. LAB STUDIES: WBC 10.1, hemoglobin 13.9, sodium 140, potassium 3 and calcium 7.7. ASSESSMENT: 1. Acute seizure disorder. 2. Acute delirium tremens. 3. Alcohol intoxication. 4. Possible right lower lobe pneumonia possibly gram-negative. 5. Increased WBC. 6. Possible acute bronchitis with tracheobronchitis. 7. Severe hypokalemia. 8. Hypomagnesemia. 9. History of previous right MCA infarct. 10.History of hyperammonemia. RECOMMENDATIONS AND DISCUSSION: In this 67-year-old gentleman who presented with multiple complex medical issues, we will monitor the patient closely, continue the current management, continue symptomatic treatment. I would recommend continue with Keppra at high dose. I would also recommend empiric antibiotics bronchodilators. Neurology evaluation. The chest x-ray was reviewed personally by me and showed possible pneumonitis. Will continue to monitor. Guarded prognosis because of multiple complex medical issues. Further recommendations to follow. Repeat labs ordered. See orders for details. Prognosis guarded. Also recommend socially responsible investment adviser and Case Management consultation to arrange rehab and as well as also please arrange home situation also. The patient is basically homeless and the patient apparently crying, telling me that there is no place for him to go off and the patient was living in a motel at this time. MMODL / IJN: [id number] /
[2018-04-13] MEDS: PIPERACILLIN-TAZOBACTAM 3.375 GM in SODIUM CHLORIDE 0.9% 100 ML IVPB SCH ×3 (00:26→16:27)
[2018-04-13] MEDS: IPRATROPIUM-ALBUTEROL 3 ML NEB INHALATION SCH ×3 (07:10→19:14)
[2018-04-13] MEDS: NICOTINE 14MG/24HR PATCH TRANSDERM SCH (08:40)
[2018-04-13] MEDS: ASPIRIN 81 MG PO SCH (08:41)
[2018-04-13] MEDS: PANTOPRAZOLE 40 MG TABLET PO SCH (08:41)
[2018-04-13] MEDS: HEPARIN SODIUM,PORCINE 5,000 UNIT/ML 1 ML VIAL SQ SCH ×2 (08:41→22:15)
[2018-04-13] MEDS: ATORVASTATIN 20 MG TAB PO SCH (08:41)
[2018-04-13] MEDS: levETIRAcetam 500 MG TAB PO SCH ×2 (08:41→22:15)
[2018-04-13 10:15] LABS: ALT 32 U/L (21-72); AST 37 U/L (17-59); Albumin 3.7 g/dL (3.5-5.0); Alkaline Phosphatase 31 U/L (38-126); Anion Gap 8 mmol/L; Blood Urea Nitrogen 13 mg/dL (9-20); Calcium 9.1 mg/dL (8.4-10.2); Carbon Dioxide 27 mmol/L (22-30); Chloride 105 mmol/L (98-107); Cholesterol 131 mg/dL (<200); Glucose 109 mg/dL (74-99); HDL Cholesterol 43 mg/dL (40-60); LDL Cholesterol,Calculated 68 mg/dL (0-99); Magnesium 1.9 mg/dL (1.6-2.3); Potassium 4.1 mmol/L (3.5-5.1); Sodium 140 mmol/L (137-145); Total Bilirubin 0.7 mg/dL (0.2-1.3); Total Protein 6.5 g/dL (6.3-8.2); Triglycerides 98 mg/dL (<150)
[2018-04-13 10:21] LABS: Basophils % (A) 1 %; Eosinophils # (A) 0.1 k/uL (0-0.7); Eosinophils % (A) 1 %; HCT 35.5 % (39.0-53.0); HGB 11.6 gm/dL (13.0-17.5); Lymphocytes % (A) 20 %; MCH 31.9 pg (25.0-35.0); MCHC 32.8 g/dL (31.0-37.0); MCV 97.3 fL (80.0-100.0); Mean Platelet Volume 7.9; Monocytes # (A) 0.3 k/uL (0-1.0); Monocytes % (A) 7 %; Neutrophils # (A) 3.4 k/uL (1.3-7.7); Neutrophils % (A) 69 %; Platelet Count 240 k/uL (150-450); RBC 3.65 m/uL (4.30-5.90); RDW 12.6 % (11.5-15.5); WBC 4.8 k/uL (3.8-10.6)
[2018-04-13] MEDS: FOLIC ACID 1 MG TAB PO SCH (11:35)
[2018-04-13] MEDS: MULTIVITAMINS, THERA 1 EACH TAB PO SCH (11:35)
[2018-04-13] MEDS: THIAMINE 100 MG TAB PO SCH ×2 (11:36→16:27)
[2018-04-14] MEDS: PIPERACILLIN-TAZOBACTAM 3.375 GM in SODIUM CHLORIDE 0.9% 100 ML IVPB SCH ×3 (00:18→16:30)
[2018-04-14 07:20] VITALS: RESP 18
[2018-04-14] MEDS: IPRATROPIUM-ALBUTEROL 3 ML NEB INHALATION SCH ×2 (07:44→13:11)
[2018-04-14] MEDS: ATORVASTATIN 20 MG TAB PO SCH (08:08)
[2018-04-14] MEDS: PANTOPRAZOLE 40 MG TABLET PO SCH (08:08)
[2018-04-14] MEDS: ASPIRIN 81 MG PO SCH (08:08)
[2018-04-14] MEDS: NICOTINE 14MG/24HR PATCH TRANSDERM SCH (08:08)
[2018-04-14] MEDS: HEPARIN SODIUM,PORCINE 5,000 UNIT/ML 1 ML VIAL SQ SCH (08:08)
[2018-04-14] MEDS: levETIRAcetam 500 MG TAB PO SCH (08:08)
[2018-04-14 09:30] LABS: Basophils % (A) 0 %; Eosinophils # (A) 0.1 k/uL (0-0.7); Eosinophils % (A) 2 %; HGB 12.3 gm/dL (13.0-17.5); Lymphocytes % (A) 20 %; MCH 31.9 pg (25.0-35.0); MCHC 32.4 g/dL (31.0-37.0); MCV 98.4 fL (80.0-100.0); Mean Platelet Volume 8.2; Monocytes # (A) 0.3 k/uL (0-1.0); Monocytes % (A) 7 %; Neutrophils # (A) 3.6 k/uL (1.3-7.7); Neutrophils % (A) 70 %; Platelet Count 247 k/uL (150-450); RBC 3.86 m/uL (4.30-5.90); RDW 12.8 % (11.5-15.5); WBC 5.2 k/uL (3.8-10.6)
[2018-04-14 09:43] LABS: ALT 31 U/L (21-72); AST 29 U/L (17-59); Albumin 3.8 g/dL (3.5-5.0); Alkaline Phosphatase 32 U/L (38-126); Anion Gap 7 mmol/L; Blood Urea Nitrogen 11 mg/dL (9-20); Calcium 9.4 mg/dL (8.4-10.2); Carbon Dioxide 27 mmol/L (22-30); Chloride 108 mmol/L (98-107); Glucose 126 mg/dL (74-99); Potassium 4.3 mmol/L (3.5-5.1); Sodium 142 mmol/L (137-145); Total Bilirubin 0.4 mg/dL (0.2-1.3); Total Protein 6.6 g/dL (6.3-8.2)
[2018-04-14] MEDS: FOLIC ACID 1 MG TAB PO SCH (10:47)
[2018-04-14] MEDS: MULTIVITAMINS, THERA 1 EACH TAB PO SCH (10:47)
[2018-04-14] MEDS: THIAMINE 100 MG TAB PO SCH (10:47)
[2018-04-14 15:42] VITALS: BP 114/68; PULSE 64; TEMP 99.1
--- NOTE | 2018-04-14 15:44 | P.DS ---
Providers Date of admission: 04/12/18 15:40 Expected date of discharge: 04/14/18 Attending physician: Mitch Costa Dr. [facility] course: This is a 67-year-old gentleman admitted with acute seizure disorder, alcohol intoxication with acute DTs, right lower lobe pneumonia, possible acute bronchitis with tracheobronchitis and multiple other medical issues maintained on gentle IV fluid hydration, IV antibiotics, nebulized bronchodilators. kEPPRA dose increased. Significant clinical improvement. Patient is being discharged in stable condition with prognosis. Exam: -Gen.: no acute distress, alert and oriented times 2. CV; regular S1 and S2.lungs: Bilateral bases diminished, a few scattered rhonchi. abd: Soft, nontender, positive bowel sounds. nEURO; no focal deficitS. The impression and plan of care has been dictated as directed. .: I performed a history and examination of this patient, discussed the same with the dictator. I agree with the dictator's note ,documented as a scribe. Any additional findings or plans will be noted. Time taken: 35 minutes Primary care physician: Lucrecia Bhandari Patient Condition at Discharge: Fair Plan - Discharge Summary Discharge Rx Participant: Yes New Discharge Prescriptions: New Acetaminophen Tab [Tylenol] 650 mg PO Q6HR PRN tab PRN Reason: Mild Pain Or Fever > 100.5 Atorvastatin [Lipitor] 20 mg PO DAILY #30 tab levETIRAcetam [Keppra] 1,000 mg PO BID #120 tab Nicotine 14Mg/24Hr Patch [Habitrol] 1 patch TRANSDERM DAILY #30 patch Pantoprazole [Protonix] 40 mg PO AC-BRKFST #30 tablet. Amoxicillin/Potassium Clav [Augmentin 500-125 Tablet] 1 tab PO Q12HR #5 tab Albuterol Sulfate [Proair Hfa] 1 - 2 puff INHALATION Q6HR PRN #1 inhaler PRN Reason: Shortness Of Breath Continue Folic Acid 1 mg PO DAILY@1200 #30 tablet Multivitamins, Thera [Multivitamin (formulary)] 1 tab PO DAILY@1200 #30 tablet Thiamine [Vitamin B-1] 100 mg PO DAILY@1200 #30 tab Aspirin EC [Ecotrin Low Dose] 81 mg PO DAILY #30 tablet. Discontinued levETIRAcetam [Keppra] 500 mg PO BID #30 tab Multivitamin,Therapeutic [Thera] 1 tab PO DAILY Discharge Medication List Aspirin EC [Ecotrin Low Dose] 81 mg PO DAILY #30 tablet. 04/07/18 [Rx] Folic Acid 1 mg PO DAILY@1200 #30 tablet 04/07/18 [Rx] Multivitamins, Thera [Multivitamin (formulary)] 1 tab PO DAILY@1200 #30 tablet 04/07/18 [Rx] Thiamine [Vitamin B-1] 100 mg PO DAILY@1200 #30 tab 04/07/18 [Rx] Acetaminophen Tab [Tylenol] 650 mg PO Q6HR PRN tab 04/14/18 [Rx] Albuterol Sulfate [Proair Hfa] 1 - 2 puff INHALATION Q6HR PRN #1 inhaler [Rx] Amoxicillin/Potassium Clav [Augmentin 500-125 Tablet] 1 tab PO Q12HR #5 tab [Rx] Atorvastatin [Lipitor] 20 mg PO DAILY #30 tab 04/14/18 [Rx] Nicotine 14Mg/24Hr Patch [Habitrol] 1 patch TRANSDERM DAILY #30 patch 04/14/18 [ Rx] Pantoprazole [Protonix] 40 mg PO AC-BRKFST #30 tablet. 04/14/18 [Rx] levETIRAcetam [Keppra] 1,000 mg PO BID #120 tab 04/14/18 [Rx] Follow up Appointment(s)/Referral(s): Thony Singer MD [Primary Care Provider] - 3 Days Patient Instructions/Handouts: Generalized Tonic Clonic Seizures (DC) Activity/Diet/Wound Care/Special Instructions: NO alcohol. References again provided. No smoking, cessation information provided and advised to buy nicotine patch over the counter. Activity as tolerated, no driving until okd by physician. Regular diet. aCTIVITY: LIMITED TILL f/u SEIZURE PRECAUTIONS.....nO DRIVING.
--- NOTE | 2018-04-14 16:24 | P.PN ---
Subjective Progress Note Date: 04/13/18 Progress note being dictated for Dr. Costa Interval history:This is a 67-year-old gentleman admitted with acute seizure disorder, alcohol intoxication with acute DTs, right lower lobe pneumonia, possible acute bronchitis with tracheobronchitis and multiple other medical issues. maintained on gentle IV fluid hydration, IV antibiotics, nebulized bronchodilators and increased kEPPRA dose. Significant clinical improvement. T -max 100.4, normal WBC. No Ativan required this morning .Denies chest pain, palpitations or increased shortness of breath. Objective - Vital Signs Vital signs: Vital Signs Temp 98.4 F 04/13/18 15:00 Pulse 64 04/13/18 19:25 Resp 18 04/13/18 15:58 BP 117/73 04/13/18 15:00 Pulse Ox 98 04/13/18 15:00 Intake & Output 04/13/18 04/13/18 04/14/18 06:59 18:59 06:59 Intake Total 300 360 Output Total 1300 Balance 300 -940 Weight 75.296 kg Intake: Oral 300 360 Output: Urine 1300 Other: Voiding Method Toilet Urinal # Voids 2 # Bowel Movements 0 - Exam PHYSICAL EXAM: VITAL SIGNS: As above GENERAL: sitting up in bed, no acute distress HEENT: Conjunctivae normal. eyes normal. Oral mucosa moist NECK: No JVD. No thyroid enlargement. No LNs CARDIOVASCULAR: S1, S2 muffled. No murmur, rubs or gallops RESPIRATION: Breath sounds diminished in the bases. No rhonchi or crackles. No bronchial breathing. ABDOMEN: Soft, nontender . No guarding. no masses palpable. Bowel sounds heard. LEGS: No edema. no swelling PSYCHIATRY: Alert and oriented -2, mood and affect normal. NERVOUS SYSTEM: Cranial N 2-12 grossly normal. Moves all 4 limbs. No focal deficits. - Labs CBC & Chem 7: 04/14/18 08:50 04/14/18 08:50 Labs: Abnormal Lab Results - Last 24 Hours (Table) 04/13/18 04/13/18 Range/Units 09:18 09:18 RBC 3.65 L (4.30-5.90) m/uL Hgb 11.6 L (13.0-17.5) gm/dL Hct 35.5 L (39.0-53.0) % Glucose 109 H (74-99) mg/dL Alkaline Phosphatase 31 L (38-126) U/L Microbiology - Last 24 Hours (Table) 04/12/18 17:14 Blood Culture - Preliminary Blood No Growth after 24 hours Assessment and Plan Assessment: -Acute seizure disorder -Acute DTs -Alcohol intoxication -Possible right lower lobe pneumonia, possibly gram-negative -Possible acute bronchitis and tracheobronchitis Plan: Continue current medication regime ,monitoring and symptomatic treatment. Maintain seizure precautions. Increase ambulation as tolerated. Continue on , nebulized bronchodilators, CIWA protocol. Follow Blood cultures closely. Social work assessment with patient, providing him with multiple resources. Discharge planning in progress for tomorrow. The impression and plan of care has been dictated as directed. : I performed a history and examination of this patient, discussed the same with the dictator. I agree with the dictator's note ,documented as a scribe. Any additional findings or plans will be noted.
== END 2018-04-14 17:30 | disposition home or self-care (01) | DRG 100 ==
LOC: EC 13:25 → 4MS4W 15:40
PROVIDERS: ADMIT Hospitalist; ATTEND Hospitalist
DX: G40.89 Other seizures (principal); J15.6 Pneumonia due to other Gram-negative bacteria; F10.121 Alcohol abuse with intoxication delirium; E83.42 Hypomagnesemia; E83.51 Hypocalcemia; E87.6 Hypokalemia; F17.200 Nicotine dependence, unspecified, uncomplicated; F41.9 Anxiety disorder, unspecified; G40.409 Other generalized epilepsy and epileptic syndromes, not intractable, without status epilepticus; J20.9 Acute bronchitis, unspecified; Z86.73 Personal history of transient ischemic attack (TIA), and cerebral infarction without residual deficits; Z79.82 Long term (current) use of aspirin; Z79.899 Other long term (current) drug therapy; Z81.1 Family history of alcohol abuse and dependence; Z83.3 Family history of diabetes mellitus
CPT/HCPCS: 36415; 71046; 80053; 80061; 80177; 80306; 80320; 81001; 82140; 83605; 83735; 84484; 85025; 85610; 87040; 93005; 94640; 96361; 96365; 96366; 96368; 96372; 99285

== ENCOUNTER 2018-10-26 14:08 | Observation (INO) | payer MEDICARE, OTHER ==
[2018-10-26] MEDS ORDERED: SODIUM CHLORIDE 0.9% 1,000 ML IV STA ×2 (14:27→15:52)
[2018-10-26 14:38] LABS: Basophils % (A) 0 %; Eosinophils # (A) 0.1 k/uL (0-0.7); Eosinophils % (A) 1 %; HGB 14.2 gm/dL (13.0-17.5); Lymphocytes # (A) 0.9 k/uL (1.0-4.8); Lymphocytes % (A) 10 %; MCV 93.7 fL (80.0-100.0); Mean Platelet Volume 7.6; Monocytes # (A) 0.6 k/uL (0-1.0); Monocytes % (A) 7 %; Neutrophils % (A) 81 %; Platelet Count 164 k/uL (150-450); RBC 4.59 m/uL (4.30-5.90); RDW 14.7 % (11.5-15.5); WBC 9.9 k/uL (3.8-10.6)
--- NOTE | 2018-10-26 14:48 | XR ---
EXAMINATION TYPE: XR chest 2V DATE OF EXAM: 10/26/2018 COMPARISON: 04/12/2018 HISTORY: Shortness of breath TECHNIQUE: Frontal and lateral views of the chest are obtained. FINDINGS: Scattered senescent parenchymal changes noted. Hyperinflation compatible with COPD. No evidence for infiltrate. No evidence for atelectasis. Heart size is stable. Mediastinal structures are stable and grossly unremarkable. No evidence for hilar prominence. Degenerative changes dorsal spine. IMPRESSION: 1. No evidence for acute pulmonary disease.
[2018-10-26 14:49] LABS: ALT 56 U/L (21-72); AST 70 U/L (17-59); African American GFR (CKD) >90 (>60 ml/min/1.73 sqM); Albumin 4.9 g/dL (3.5-5.0); Alcohol 11 mg/dL; Alkaline Phosphatase 49 U/L (38-126); Anion Gap 15 mmol/L; Blood Urea Nitrogen 13 mg/dL (9-20); Calcium 10.1 mg/dL (8.4-10.2); Carbon Dioxide 26 mmol/L (22-30); Chloride 98 mmol/L (98-107); Creatine Kinase 67 U/L (55-170); Glucose 154 mg/dL (74-99); Lipase 606 U/L (23-300); Magnesium 1.6 mg/dL (1.6-2.3); Sodium 139 mmol/L (137-145); Total Bilirubin 1.1 mg/dL (0.2-1.3); Total Protein 7.9 g/dL (6.3-8.2)
[2018-10-26 14:53] LABS: INR 0.9 (<1.2)
[2018-10-26 14:54] LABS: Partial Thromboplastin Time 24.7 sec (22.0-30.0); Prothrombin Time 10.1 sec (9.0-12.0)
[2018-10-26 14:56] LABS: D-Dimer 0.69 mg/L FEU (<0.60)
--- NOTE | 2018-10-26 15:00 | ED ---
Chest Pain HPI - General Chief Complaint: Chest Pain Stated Complaint: Chest Pain Time Seen by Provider: 10/26/18 14:27 Source: patient, RN notes reviewed, old records reviewed Mode of arrival: wheelchair Limitations: no limitations - History of Present Illness Initial Comments: This is a 68-year-old male the ER for evaluation. Patient resents today for evaluation of shortness of breath chest pain. Abdominal pain nausea no vomiting. No diaphoresis. Patient denies recent travel history no known sick contacts. Patient states his no modifying factors for symptoms. Does admit to being a chronic drinker. Patient denies fever. No history of heart disease. Patient does have history of smoking and high cholesterol MD Complaint: chest pain -: days(s) Onset: during rest, during exertion Pain Location: substernal Severity: mild Severity scale (1-10): 2 Quality: tightness, sharp Consistency: constant Improves With: nothing Worsens With: nothing Anginal Symptoms: nausea Treatments Prior to Arrival: none - Related Data Home Medications Medication Instructions Recorded Confirmed Atorvastatin [Lipitor] 20 mg PO HS 10/26/18 10/26/18 Lacosamide [Vimpat] 50 mg PO BID 10/26/18 10/26/18 levETIRAcetam [Keppra] 500 mg PO BID 10/26/18 10/26/18 Previous Rx's Medication Instructions Recorded Aspirin EC [Ecotrin Low Dose] 81 mg PO DAILY #30 tablet. 04/07/18 Multivitamins, Thera [Multivitamin 1 tab PO DAILY@1200 #30 tablet 04/07/18 (formulary)] Thiamine [Vitamin B-1] 100 mg PO DAILY@1200 #30 tab 04/07/18 Nicotine 14Mg/24Hr Patch [Habitrol] 1 patch TRANSDERM DAILY #30 patch 04/14/18 Pantoprazole [Protonix] 40 mg PO AC-BRKFST #30 tablet. 04/14/18 Allergies Allergy/AdvReac Type Severity Reaction Status Date / Time No Known Allergies Allergy Verified 10/26/18 20:47 Review of Systems ROS Statement: Those systems with pertinent positive or pertinent negative responses have been documented in the HPI. ROS Other: All systems not noted in ROS Statement are negative. EKG Findings - EKG Comments: EKG Findings:: Medical record is reviewed showing normal sinus rhythm rate of 94, OK 156, QRS 104, QTc 427 Past Medical History Past Medical History: No Reported History, Unable to Obtain Additional Past Medical History / Comment(s): ETOH abuse with past withdrawal DTs and seizures, R foot fracture 1 year ago-not healing properly, kper Dr. Singer office visit note, pt recently seen 07/12/17 with perianal abscess. Last Myocardial Infarction Date:: 2017? History of Any Multi-Drug Resistant Organisms: None Reported Past Surgical History: No Surgical Hx Reported, Unable to Obtain Additional Past Surgical History / Comment(s): Pt states he has never had surgery but his son, Alexandre believes he has recently had a colonoscopy. Past Anesthesia/Blood Transfusion Reactions: No Reported Reaction Additional Past Anesthesia/Blood Transfusion Reaction / Comment(s): "never received any blood transfusion" Past Psychological History: No Psychological Hx Reported Smoking Status: Current some day smoker Past Alcohol Use History: Daily Past Drug Use History: None Reported - Past Family History Father History Unknown: Yes Family Medical History: Diabetes Mellitus Additional Family Medical History / Comment(s): Father was an alcoholic. Mother History Unknown: Yes Family Medical History: Diabetes Mellitus General Exam Limitations: no limitations General appearance: alert, in no apparent distress Head exam: Present: atraumatic, normocephalic, normal inspection Eye exam: Present: normal appearance, PERRL, EOMI. Absent: scleral icterus, conjunctival injection, periorbital swelling ENT exam: Present: normal exam, mucous membranes moist Neck exam: Present: normal inspection. Absent: tenderness, meningismus, lymphadenopathy Respiratory exam: Present: normal lung sounds bilaterally. Absent: respiratory distress, wheezes, rales, rhonchi, stridor Cardiovascular Exam: Present: regular rate, normal rhythm, normal heart sounds. Absent: systolic murmur, diastolic murmur, rubs, gallop, clicks GI/Abdominal exam: Present: soft, normal bowel sounds. Absent: distended, tenderness, guarding, rebound, rigid Extremities exam: Present: normal inspection, full ROM, normal capillary refill. Absent: tenderness, pedal edema, joint swelling, calf tenderness Back exam: Present: normal inspection Neurological exam: Present: alert, oriented X3, CN II-XII intact Psychiatric exam: Present: normal affect, normal mood Skin exam: Present: warm, dry, intact, normal color. Absent: rash Course Vital Signs 10/26/18 10/26/18 10/26/18 14:11 14:24 15:52 Temperature 98.9 F Pulse Rate 113 H 90 81 Pulse Rate [ 93 Hand Hardener ] Respiratory 20 187 H 18 Rate Blood Pressure 147/103 134/89 O2 Sat by Pulse 97 93 L 96 Oximetry 10/26/18 10/26/18 17:09 18:22 Temperature Pulse Rate 81 67 Pulse Rate [ Hand Hardener ] Respiratory 18 18 Rate Blood Pressure 149/99 166/97 O2 Sat by Pulse 96 95 Oximetry - Reevaluation(s) Reevaluation #1: Medical records reviewed Patient with no improvement in pain, no significant current shortness of breath Studies Chest x-rays negative for acute disease, CTA chest abdomen pelvis negative for acute disease Chest Pain MDM - MDM 68 male the ER for evaluation of chest pain. History of alcohol is will, patient will admit for chest pain observation and mild case of pancreatitis Critical Care Time Critical Care Time: Yes Total Critical Care Time: 31 Disposition Clinical Impression: Hypertension, Alcohol abuse, Chest pain, Pancreatitis Disposition: ADMITTED IP TO THIS HOSP Condition: Fair Is patient prescribed a controlled substance at d/c from ED?: No
[2018-10-26] MEDS ORDERED: HEPARIN SODIUM,PORCINE 5,000 UNIT/ML 1 ML VIAL IV ONE (16:33)
[2018-10-26] MEDS ORDERED: HEPARIN SODIUM,PORCINE 5,000 UNIT/ML 1 ML VIAL IV PRN (16:33)
[2018-10-26] MEDS ORDERED: ASPIRIN 81 MG PO STA (16:33)
[2018-10-26] MEDS ORDERED: MORPHINE SULFATE 4 MG/ML SYRINGE IV PRN (16:33)
[2018-10-26] MEDS ORDERED: NITROGLYCERIN SL TABS 0.4 MG TAB SUBLINGUAL PRN (16:33)
[2018-10-26] MEDS ORDERED: HEPARIN SOD,PORK IN 0.45% NACL 25,000 UNIT in 0.45% NACL 1 250ML.BAG IV SCH (16:45)
[2018-10-26] MEDS: SODIUM CHLORIDE 0.9% 1,000 ML IV SCH (17:03)
--- NOTE | 2018-10-26 18:26 | CT ---
EXAMINATION TYPE: CT angio chest DATE OF EXAM: 10/26/2018 6:17 PM COMPARISON: None HISTORY: Chest pain with shortness of breath CT DLP: 281.6 mGycm Automated exposure control for dose reduction was used. CONTRAST: CTA scan of the thorax is performed with IV Contrast, patient injected with 100 mL of Isovue 370, pul monary embolism protocol. There are 3-D post processed images.. FINDINGS: There is pulmonary emphysema. There is calcified pleural plaque and pleural thickening in the posteri or lung hallman. Heart size is normal. There is no pericardial effusion. There are no hilar masses. Th ere is no mediastinal adenopathy. There is calcified pleural plaque on the left and right anterior ch est wall also. There is spurring in the thoracic spine. I see no bony destructive process. There is posterior bilate ral rib deformity consistent with old injury. I see no filling defects in the pulmonary arteries. There is no evidence of thoracic aortic aneurysm or dissection. IMPRESSION: CALCIFIED PLEURAL PLAQUE. PULMONARY SCARRING. EMPHYSEMA. THERE IS NO EVIDENCE OF PULMONARY EMBOLISM. OLD HEALED RIB FRACTURES.
--- NOTE | 2018-10-26 18:30 | CT ---
EXAMINATION TYPE: CT abdomen pelvis w con DATE OF EXAM: 10/26/2018 COMPARISON: None HISTORY: Generalized pain. CT DLP: 734.1 mGycm Automated exposure control for dose reduction was used. TECHNIQUE: Helical acquisition of images was performed from the lung bases through the pelvis. CONTRAST: Performed without Oral Contrast and with IV Contrast, patient injected with 100 mL of Isovue 370. FINDINGS: There is calcified pleural plaque at the lung bases. There is fatty infiltration of the liver. Heart size is fairly normal. Spleen is intact. There is no evidence of pancreatic mass. Stomach appears nor mal. Gallbladder has normal contour. There is no adrenal mass. Kidneys show satisfactory contrast opacification. There is no hydronephrosi s. Ureters are not dilated. Abdominal aorta is atheromatous. There is no retroperitoneal adenopathy. Bladder distends smoothly. There is no inguinal hernia. There is prostatic calcification. There is no free fluid in the pelvis. There are some sigmoid diverticula without evidence of diverticulitis. The appendix appears normal. The appendix is folded on itself at the cecum. There is no sign of a bowel obstruction. There is no mesenteric edema. There is no ascites or free air. There is some spondylosis at L5-S1 with disc space narrowing. There is no lumbar compression fracture . Bony pelvis is intact. IMPRESSION: NORMAL APPENDIX. ATHEROSCLEROTIC VASCULAR DISEASE. SIGMOID DIVERTICULOSIS. FATTY INFILTRATION OF THE LIVER. NO ACUTE ABNORMALITY OF THE ABDOMEN PELVIS.
[2018-10-26] MEDS ORDERED: HYDROcodone/APAP 5-325MG 1 EACH TAB PO PRN (19:27)
[2018-10-26] MEDS: LACOSAMIDE 50 MG TABLET PO SCH (20:51)
[2018-10-26] MEDS: levETIRAcetam 500 MG TAB PO SCH (20:51)
[2018-10-26] MEDS: METOPROLOL TARTRATE 25 MG TAB PO SCH (20:51)
[2018-10-26] MEDS ORDERED: LORazepam 2 MG/ML INJ IV PRN ×2 (21:15)
--- NOTE | 2018-10-26 21:18 | HP ---
HISTORY AND PHYSICAL DATE OF SERVICE: 10/26/2018 CHIEF COMPLAINT: Chest pain. HISTORY OF PRESENT ILLNESS: This 68-year-old gentleman with a past medical history of multiple medical problems, including history of EtOH withdrawal syndromes, being followed by Dr. Singer in the outpatient setting, has a significant history of alcohol intake. The patient was previously admitted with seizure disorder, DTs, alcohol intoxication and pneumonia previously. Currently the patient reports drinking alcohol yesterday. The patient is complaining of upper abdominal and lower chest pain. The patient was admitted for further evaluation and treatment. The evaluation showed possible acute pancreatitis; lipase elevated at 606. D-dimer was 0.69. The patient underwent a chest CTA which showed calcified pleural plaque and no evidence of any pulmonary embolism. CT scan of the abdomen and pelvis was also done which showed atherosclerotic vascular disease. There is no history of any fever or rigors. No history of headache, loss of consciousness, seizures. PAST MEDICAL HISTORY: 1. History of ETOH. 2. History of DTs. 3. Seizure disorder. 4. History of pneumonia, as mentioned earlier. HOME MEDICATIONS: 1. Vimpat 50 mg p.o. b.i.d. 2. Keppra 500 mg p.o. b.i.d. 3. Vitamin B1, 100 mg p.o. daily. 4. Protonix 40 mg daily. 5. Habitrol 14 daily. 6. Multivitamins 1 p.o. daily. 7. Lipitor 20 mg at bedtime. 8. Ecotrin 81 mg daily. ALLERGIES: NONE. FAMILY HISTORY: History of diabetes mellitus in the family. History of alcoholism in father. SOCIAL HISTORY: History of smoking, ongoing. History of alcohol. REVIEW OF SYSTEMS: ENT: Diminished hearing. Diminished vision. CARDIOVASCULAR SYSTEM: No angina, palpitations. RESPIRATORY SYSTEM: As mentioned earlier. GI: No nausea, vomiting. : No dysuria or retention. NERVOUS SYSTEM: No numbness, weakness. ALLERGY/IMMUNOLOGY: No asthma, hayfever. MUSCULOSKELETAL: As mentioned earlier. HEMATOLOGY/ONCOLOGY: No history of anemia. ENDOCRINE: No history of diabetes, hypothyroidism. CONSTITUTIONAL: As mentioned earlier. DERMATOLOGY: Negative. RHEUMATOLOGY: Negative. PSYCHIATRY: As mentioned earlier. PHYSICAL EXAMINATION: Patient alert and oriented x3. Pulse is 81, blood pressure 149/99, respiration 18, temperature normal, pulse ox 96% on 2 L. HEENT: Conjunctivae normal. NECK: No jugular venous distention. CARDIOVASCULAR SYSTEM: S1, S2 muffled. RESPIRATORY SYSTEM: Breath sounds diminished at the bases. A few scattered rhonchi and crackles. ABDOMEN: Soft. Mild diffuse tenderness present in the upper abdomen especially. No guarding. No rigidity. No mass palpable. LEGS: No edema. No swelling. NERVOUS SYSTEM: Higher functions as mentioned earlier. Moves all 4 limbs. No focal motor or sensory deficit. LYMPHATICS: No lymph node palpable in neck, axillae or groin. SKIN: No ulcer, rash, bleeding. JOINTS: No active deforming arthropathy. LABS: CBC within normal limits. D-dimer is 0.69, glucose 154. AST 70, ALT is 56, lipase 606. Serum alcohol 11. ASSESSMENT: 1. Acute upper abdominal pain with acute pancreatitis. 2. Acute alcohol intoxication and early delirium tremens. 3. History of delirium tremens. 4. History of seizure disorder. 5. History of pneumonia. 6. History of perianal abscess. 7. Nicotine dependence. 8. History of ETOH. RECOMMENDATIONS AND DISCUSSION: In this 68-year-old gentleman who presented with multiple complex medical issues, we will monitor the patient closely, continue the current management, continue symptomatic treatment. Will keep the patient on clear liquids. CIWA protocol. Symptomatic treatment. Cardiology has been consulted for the chest pain. I would also consult Gastroenterology for the possible pancreatitis. Guarded prognosis because of multiple complex medical issues. Social Work and Case Management to evaluate the patient for possible rehab. A copy of this dictation is being forwarded to Dr. Singer, who is the primary physician. See orders for further details. MMODL / IJN: [id number] /
[2018-10-26] MEDS: THIAMINE 100 MG TAB PO SCH (21:53)
[2018-10-26] MEDS: LORazepam 2 MG/ML INJ IV PRN (21:53)
[2018-10-27] MEDS: SODIUM CHLORIDE 0.9% 1,000 ML IV SCH ×3 (05:32→23:40)
[2018-10-27 08:07] LABS: Amorphous Sediment,Urine Rare /hpf; Appearance,Urine Clear (Clear); Bacteria,Urine Rare /hpf; Bilirubin,Urine Negative (Negative); Blood,Urine Small (Negative); Color,Urine Yellow; Glucose,Urine (UA) Negative (Negative); Ketones,Urine Negative (Negative); Leukocyte Esterase,Urine Negative (Negative); Mucus,Urine Rare /hpf; Nitrite,Urine Negative (Negative); PH, Urine 5.5 (5.0-8.0); Protein,Urine Trace (Negative); RBC,Urine 1 /hpf (0-5); Specific Gravity,Urine 1.043 (1.001-1.035); Squamous Epithelial Cell,Urine <1 /hpf (0-4); WBC,Urine <1 /hpf (0-5)
[2018-10-27 08:54] LABS: Basophils % (A) 0 %; Eosinophils # (A) 0.1 k/uL (0-0.7); Eosinophils % (A) 2 %; HCT 37.4 % (39.0-53.0); HGB 12.2 gm/dL (13.0-17.5); Lymphocytes # (A) 0.9 k/uL (1.0-4.8); Lymphocytes % (A) 12 %; MCH 30.4 pg (25.0-35.0); MCHC 32.7 g/dL (31.0-37.0); Mean Platelet Volume 8.1; Monocytes # (A) 0.7 k/uL (0-1.0); Monocytes % (A) 9 %; Neutrophils # (A) 5.6 k/uL (1.3-7.7); Neutrophils % (A) 74 %; Platelet Count 133 k/uL (150-450); RBC 4.02 m/uL (4.30-5.90); RDW 15.4 % (11.5-15.5); WBC 7.6 k/uL (3.8-10.6)
[2018-10-27] MEDS ORDERED: ASPIRIN 325 MG TAB PO SCH (09:00)
[2018-10-27] MEDS ORDERED: THIAMINE 100 MG TAB PO SCH ×2 (09:00→12:00)
[2018-10-27] MEDS: LACOSAMIDE 50 MG TABLET PO SCH ×2 (09:15→20:21)
[2018-10-27] MEDS: levETIRAcetam 500 MG TAB PO SCH ×2 (09:15→20:21)
[2018-10-27] MEDS: METOPROLOL TARTRATE 25 MG TAB PO SCH ×2 (09:15→20:21)
[2018-10-27] MEDS: NICOTINE 14MG/24HR PATCH TRANSDERM SCH (09:16)
[2018-10-27] MEDS: THIAMINE 100 MG TAB PO SCH ×2 (09:16→17:25)
[2018-10-27] MEDS: ASPIRIN 81 MG PO SCH (09:16)
[2018-10-27] MEDS: PANTOPRAZOLE 40 MG TABLET PO SCH (09:16)
[2018-10-27] MEDS: ATORVASTATIN 80 MG TAB PO SCH (09:16)
--- NOTE | 2018-10-27 09:20 | P.CRDCN ---
History of Present Illness Consult date: 10/27/18 History of present illness: This is a 68-year-old gentleman with history of alcohol abuse and also seizure disorder who was admitted to the hospital mainly with complaints of abdominal pain. This patient has been drinking. Most of his pain is in the epigastric and abdominal area. The pain increases upon palpation of the abdomen. Denied any chest pain. No history of any previous myocardial infarction. EKGs did not reveal any acute changes of ischemia. Computed tomography scan is negative for pulmonary emboli. His pains appear to be noncardiac. No further cardiac workup is necessary at this time. Follow him clinically for any occurrence of cardiac symptoms. There is a suspicion that patient may have pancreatitis or gastritis related to his alcohol intake. His surgical consult may be obtained. We'll see him as needed Review of Systems As per the chart Past Medical History Past Medical History: Hyperlipidemia, Seizure Disorder Additional Past Medical History / Comment(s): ETOH abuse with past withdrawal DTs and seizures, R foot fracture 1 year ago-not healing properly, perianal abscess (patient denies). Last Myocardial Infarction Date:: 2017? History of Any Multi-Drug Resistant Organisms: None Reported Past Surgical History: No Surgical Hx Reported Additional Past Surgical History / Comment(s): Pt states he has never had surgery but his son, Alexandre believes he has recently had a colonoscopy. Past Anesthesia/Blood Transfusion Reactions: No Reported Reaction Additional Past Anesthesia/Blood Transfusion Reaction / Comment(s): "never received any blood transfusion" Past Psychological History: No Psychological Hx Reported Smoking Status: Current every day smoker Past Alcohol Use History: Daily Additional Past Alcohol Use History / Comment(s): drinks 4 tall beers per day. last drink 10/22 Past Drug Use History: None Reported - Past Family History Father History Unknown: Yes Family Medical History: Diabetes Mellitus Additional Family Medical History / Comment(s): Father was an alcoholic. Mother History Unknown: Yes Family Medical History: Diabetes Mellitus Medications and Allergies Home Medications Medication Instructions Recorded Confirmed Type Aspirin EC [Ecotrin Low Dose] 81 mg PO DAILY #30 tablet. 04/07/18 10/26/18 Rx Multivitamins, Thera [Multivitamin 1 tab PO DAILY@1200 #30 tablet 04/07/18 10/26/18 Rx (formulary)] Thiamine [Vitamin B-1] 100 mg PO DAILY@1200 #30 tab 04/07/18 10/26/18 Rx Nicotine 14Mg/24Hr Patch [Habitrol] 1 patch TRANSDERM DAILY #30 patch 04/14/18 10/26/18 Rx Pantoprazole [Protonix] 40 mg PO AC-BRKFST #30 tablet.dr 04/14/18 10/26/18 Rx Atorvastatin [Lipitor] 20 mg PO HS 10/26/18 10/26/18 History Lacosamide [Vimpat] 50 mg PO BID 10/26/18 10/26/18 History levETIRAcetam [Keppra] 500 mg PO BID 10/26/18 10/26/18 History Allergies Allergy/AdvReac Type Severity Reaction Status Date / Time No Known Allergies Allergy Verified 10/26/18 20:47 Physical Exam Vitals: Vital Signs Temp Pulse Pulse Pulse Resp BP BP 10/27/18 08:00 61 68 17 10/27/18 07:34 98.7 F 68 17 132/83 10/27/18 04:00 98.3 F 61 16 128/77 10/26/18 23:45 98.6 F 60 16 124/79 10/26/18 19:46 98.8 F 66 18 159/98 10/26/18 18:22 67 18 166/97 10/26/18 17:09 81 18 149/99 10/26/18 15:52 81 18 134/89 10/26/18 14:24 90 93 187 H 10/26/18 14:11 98.9 F 113 H 20 147/103 Pulse Ox 10/27/18 08:00 10/27/18 07:34 97 10/27/18 04:00 97 10/26/18 23:45 98 10/26/18 19:46 96 10/26/18 18:22 95 10/26/18 17:09 96 10/26/18 15:52 96 10/26/18 14:24 93 L 10/26/18 14:11 97 Intake and Output 10/26/18 10/27/18 10/27/18 22:59 06:59 14:59 Intake Total 89.287 Output Total 350 Balance 89.287 -350 Intake: Intake, IV Titration 89.287 Amount Heparin Sod,Pork in 0.45% 89.287 NaCl 25,000 unit In 0.45 % NaCl 1 250ml.bag @ 12 UNITS/KG/HR 10.07 mls/hr IV .Q24H [facility] Rx#: [id number] Output: Urine 350 Other: Voiding Method Toilet Toilet Urinal # Voids 1 1 GENERAL EXAM: Patient is alert and oriented and doesn't appear to be in any acute distress, may be showing some withdrawal signs HEENT: Normocephalic. Normal reaction of pupils, equal size, normal range of extraocular motion. No erythema or exudates in the throat. NECK: No masses, no nuchal rigidity. CHEST: No chest wall deformity. LUNGS: Equal air entry with no crackles or wheeze. HEART: S1 and S2 normal with no audible mumurs or gallops. Regular rhythm, femorals equal on both sides.. ABDOMEN: No hepatosplenomegaly, normal bowel sounds, no guarding or rigidity. SKIN: No rashes CENTRAL NERVOUS SYSTEM: No focal deficits. EXTREMITIES: No cyanosis, clubbing or edema. Results 10/27/18 08:28 10/26/18 14:29 Cardiac Enzymes 10/26/18 10/26/18 10/26/18 Range/Units 14:29 14:29 17:24 AST 70 H (17-59) U/L Troponin I 0.012 0.014 (0.000-0.034) ng/mL 10/27/18 Range/Units 01:06 AST (17-59) U/L Troponin I <0.012 (0.000-0.034) ng/mL Coagulation 10/26/18 10/26/18 10/27/18 Range/Units 14:29 17:24 01:06 PT 10.1 (9.0-12.0) sec APTT 24.7 157.3 H* 39.3 H (22.0-30.0) sec 10/27/18 Range/Units 08:28 PT (9.0-12.0) sec APTT 60.9 H (22.0-30.0) sec CBC 10/26/18 10/27/18 Range/Units 14:29 08:28 WBC 9.9 7.6 (3.8-10.6) k/uL RBC 4.59 4.02 L (4.30-5.90) m/uL Hgb 14.2 12.2 L (13.0-17.5) gm/dL Hct 43.0 37.4 L (39.0-53.0) % Plt Count 164 133 L (150-450) k/uL Comprehensive Metabolic Panel 10/26/18 Range/Units 14:29 Sodium 139 (137-145) mmol/L Potassium 4.0 (3.5-5.1) mmol/L Chloride 98 (98-107) mmol/L Carbon Dioxide 26 (22-30) mmol/L BUN 13 (9-20) mg/dL Creatinine 0.74 (0.66-1.25) mg/dL Glucose 154 H (74-99) mg/dL Calcium 10.1 (8.4-10.2) mg/dL AST 70 H (17-59) U/L ALT 56 (21-72) U/L Alkaline Phosphatase 49 (38-126) U/L Total Protein 7.9 (6.3-8.2) g/dL Albumin 4.9 (3.5-5.0) g/dL Current Medications Generic Name Dose Route Start Last Admin Trade Name Freq PRN Reason Stop Dose Admin Hydrocodone Bitart/Acetaminophen 1 each 10/26/18 19:27 [place] 5-325 PO Q6HR PRN Pain Aspirin 81 mg 10/27/18 09:00 Aspirin PO DAILY [facility] Atorvastatin Calcium 80 mg 10/27/18 09:00 Lipitor PO DAILY [facility] Heparin Sodium (Porcine) 0 unit 10/26/18 16:33 10/27/18 02:21 Heparin IV 4,000 unit Q6HR PRN Administration Low PTT Protocol Sodium Chloride 1,000 mls @ 100 mls/hr 10/26/18 16:45 10/27/18 05:32 Saline 0.9% IV Not Given .Q10H [facility] Lacosamide 50 mg 10/26/18 21:00 10/26/18 20:51 Vimpat PO 50 mg BID [facility] Administration Levetiracetam 500 mg 10/26/18 21:00 10/26/18 20:51 Keppra PO 500 mg BID [facility] Administration Lorazepam 1 mg 10/26/18 21:15 10/26/18 21:53 Ativan IV 1 mg Q2HR PRN Administration CIWA 8 or 9 Lorazepam 1 mg 10/26/18 21:15 Ativan IV Q1HR PRN CIWA 10 to 15 Lorazepam 2 mg 10/26/18 21:15 Ativan IV 10/28/18 21:15 Q10M PRN CIWA 16 or higher Metoprolol Tartrate 25 mg 10/26/18 21:00 10/26/18 20:51 Lopressor PO 25 mg BID [facility] Administration Morphine Sulfate 4 mg 10/26/18 16:33 10/26/18 17:00 Morphine Sulfate (Inj) IV 4 mg Q4HR PRN Administration Chest Pain Nicotine 1 patch 10/27/18 09:00 Habitrol 14mg/24hr Patch TRANSDERM DAILY [facility] Nitroglycerin 0.4 mg 10/26/18 16:33 Nitrostat SUBLINGUAL Q5M PRN Chest Pain Pantoprazole Sodium 40 mg 10/27/18 07:30 Protonix PO AC-BRKFST [facility] Thiamine HCl 100 mg 10/26/18 21:30 10/26/18 21:53 Vitamin B-1 PO 100 mg BID-W/MEALS [facility] Administration Intake and Output 10/26/18 10/27/18 10/27/18 22:59 06:59 14:59 Intake Total 89.287 Output Total 350 Balance 89.287 -350 Intake: Intake, IV Titration 89.287 Amount Heparin Sod,Pork in 0.45% 89.287 NaCl 25,000 unit In 0.45 % NaCl 1 250ml.bag @ 12 UNITS/KG/HR 10.07 mls/hr IV .Q24H [facility] Rx#: [id number] Output: Urine 350 Other: Voiding Method Toilet Toilet Urinal # Voids 1 1 10/27/18 08:28 10/26/18 14:29 EKG Interpretations (text) Sinus rhythm Assessment and Plan (1) Abdominal pain Current Visit: Yes Status: Acute Code(s): R10.9 - UNSPECIFIED ABDOMINAL PAIN SNOMED Code(s): 64083009 (2) Alcohol withdrawal Current Visit: No Status: Acute Code(s): F10.239 - ALCOHOL DEPENDENCE WITH WITHDRAWAL, UNSPECIFIED SNOMED Code(s): 881689093 (3) Hypertension Current Visit: No Status: Chronic Code(s): I10 - ESSENTIAL (PRIMARY) HYPERTENSION SNOMED Code(s): 96984768 (4) Pancreatitis Current Visit: Yes Status: Acute Code(s): K85.90 - ACUTE PANCREATITIS WITHOUT NECROSIS OR INFECTION, UNSP SNOMED Code(s): 72219008 (5) History of CVA (cerebrovascular accident) Current Visit: Yes Status: Acute Code(s): Z86.73 - PRSNL HX OF TIA (TIA), AND CEREB INFRC W/O RESID DEFICITS SNOMED Code(s): 623317619 Plan: This patient with history of alcohol abuse and seizure disorder, admitted mainly with abdominal pain with history of smoking until yesterday. Patient has tenderness in the upper abdomen. The symptoms of size to the gastritis or pancreatitis. Cardiac enzymes and EKGs are normal. The computed tomography scan is negative for pulmonary emboli. No further cardiac workup is suggested at this time. A surgical consult could be obtained because of the abdominal pain. We'll be seeing the patient as needed.
[2018-10-27 09:24] LABS: ALT 40 U/L (21-72); AST 43 U/L (17-59); African American GFR (CKD) >90 (>60 ml/min/1.73 sqM); Albumin 3.6 g/dL (3.5-5.0); Alkaline Phosphatase 41 U/L (38-126); Amylase 69 U/L (30-110); Anion Gap 7 mmol/L; Blood Urea Nitrogen 14 mg/dL (9-20); Calcium 8.7 mg/dL (8.4-10.2); Carbon Dioxide 28 mmol/L (22-30); Chloride 105 mmol/L (98-107); Cholesterol 110 mg/dL (<200); Glucose 92 mg/dL (74-99); HDL Cholesterol 50 mg/dL (40-60); LDL Cholesterol,Calculated 47 mg/dL (0-99); Lipase 599 U/L (23-300); Potassium 3.9 mmol/L (3.5-5.1); Sodium 140 mmol/L (137-145); Total Bilirubin 1.3 mg/dL (0.2-1.3); Total Protein 6.1 g/dL (6.3-8.2); Triglycerides 64 mg/dL (<150)
[2018-10-27] MEDS: LORazepam 2 MG/ML INJ IV PRN (09:25)
[2018-10-27] MEDS ORDERED: MULTIVITAMINS, THERA 1 EACH TAB PO SCH (12:00)
[2018-10-27] MEDS: HYDROmorphone 0.5 MG/0.5 ML SYRINGE IVP PRN ×4 (14:09→23:41)
--- NOTE | 2018-10-27 16:55 | PN ---
PROGRESS NOTE DATE OF SERVICE: 10/27/2018 This 68-year-old gentleman admitted with abdominal pain and chest pain is being closely monitored. Patient has features of pancreatitis. Patient has significant ETOH also. The patient is complaining of generalized weakness and tiredness. No chest pain. No palpitations. No fever at this time. EXAM: Alert and oriented x3. Pulse 57, blood pressure 109/70, respirations 17, temperature 98 degrees, pulse ox 97% on 2 L. HEENT: Conjunctivae pink. Neck Normal. CARDIAC: Breath sounds diminished at the bases. A few scattered rhonchi, no crackles. ABDOMEN: Soft. Mild diffuse tenderness in the upper abdomen. No guarding. No rigidity. No mass palpable. LEGS: No edema. NERVOUS SYSTEM: No focal deficits. LABS: WBC 7.2, hemoglobin 12.2. The lipase is 599. UA noted. ASSESSMENT: 1. Acute upper abdominal pain, possible acute pancreatitis. 2. Acute alcohol intoxication and early delirium tremens. 3. History of delirium tremens. 4. History of seizure disorder. 5. History of pneumonia. 6. History of perianal abscess. 7. History of nicotine dependence. 8. History of EtOH abuse. RECOMMENDATIONS AND DISCUSSION: Recommend to continue current management and symptomatic treatment. Otherwise, continue with current diet and current treatment. Repeat amylase and lipase. Guarded prognosis because of multiple complex medical issues and further recommendations to follow. MMODL / IJN: [id number] /
[2018-10-27 19:12] VITALS: RESP 18
[2018-10-28] MEDS: HYDROmorphone 0.5 MG/0.5 ML SYRINGE IVP PRN ×2 (03:42→08:18)
[2018-10-28] MEDS: ATORVASTATIN 80 MG TAB PO SCH (08:12)
[2018-10-28] MEDS: ASPIRIN 81 MG PO SCH (08:12)
[2018-10-28] MEDS: THIAMINE 100 MG TAB PO SCH (08:12)
[2018-10-28] MEDS: levETIRAcetam 500 MG TAB PO SCH (08:12)
[2018-10-28] MEDS: NICOTINE 14MG/24HR PATCH TRANSDERM SCH (08:12)
[2018-10-28] MEDS: METOPROLOL TARTRATE 25 MG TAB PO SCH (08:12)
[2018-10-28] MEDS: LACOSAMIDE 50 MG TABLET PO SCH (08:12)
[2018-10-28] MEDS: PANTOPRAZOLE 40 MG TABLET PO SCH (08:12)
[2018-10-28 08:54] LABS: Basophils % (A) 0 %; Eosinophils # (A) 0.1 k/uL (0-0.7); Eosinophils % (A) 2 %; HCT 34.8 % (39.0-53.0); HGB 11.6 gm/dL (13.0-17.5); Lymphocytes # (A) 0.7 k/uL (1.0-4.8); Lymphocytes % (A) 10 %; MCH 31.7 pg (25.0-35.0); MCHC 33.4 g/dL (31.0-37.0); Mean Platelet Volume 8.6; Monocytes # (A) 0.6 k/uL (0-1.0); Monocytes % (A) 8 %; Neutrophils # (A) 5.3 k/uL (1.3-7.7); Neutrophils % (A) 77 %; Platelet Count 124 k/uL (150-450); RBC 3.67 m/uL (4.30-5.90); RDW 15.5 % (11.5-15.5); WBC 6.9 k/uL (3.8-10.6)
[2018-10-28 11:31] LABS: ALT 41 U/L (21-72); AST 39 U/L (17-59); African American GFR (CKD) >90 (>60 ml/min/1.73 sqM); Albumin 3.4 g/dL (3.5-5.0); Alkaline Phosphatase 37 U/L (38-126); Amylase 50 U/L (30-110); Anion Gap 8 mmol/L; Blood Urea Nitrogen 10 mg/dL (9-20); Calcium 8.8 mg/dL (8.4-10.2); Carbon Dioxide 29 mmol/L (22-30); Chloride 101 mmol/L (98-107); Glucose 106 mg/dL (74-99); Lipase 253 U/L (23-300); Potassium 3.8 mmol/L (3.5-5.1); Sodium 138 mmol/L (137-145)
[2018-10-28 11:59] VITALS: BP 125/77; PULSE 62; TEMP 98.8
--- NOTE | 2018-10-29 08:33 | DS ---
DISCHARGE SUMMARY DATE OF SERVICE: 10/28/2018. FINAL DIAGNOSES: 1. Acute upper abdominal pain, possible acute pancreatitis. 2. Acute alcohol intoxication and early delirium tremens. 3. History of delirium tremens. 4. Seizure disorder. 5. History of pneumonia. 6. History of perianal abscess. 7. History of nicotine dependence. 8. History EtOH abuse. DISCHARGE DISPOSITION: The patient will be discharged in stable condition with guarded prognosis. HISTORY OF PRESENT ILLNESS: This 68-year-old gentleman with a past medical history of multiple medical problems was admitted with acute abdominal pain with features of acute pancreatitis. The patient has chest pain. Myocardial infarction ruled out. Cardiology saw the patient. Abdominal CT scan did not show any acute abnormality. On exam, vital signs are stable. Cardio system: S1, S2. Abdomen soft, nontender. NERVOUS SYSTEM: No focal deficits. Patient improved significantly. ETOH cessation rehab and AA meetings recommended. DISCHARGE ADVICE AND MEDICATIONS: 1. Discharge diet is cardiac diet. 2. Activity limited until follow up. 3. Follow up with Dr. Singer in 1-2 days. 4. No EtOH. DISCHARGE MEDICATIONS: 1. Keppra 500 mg p.o. b.i.d. 2. Lipitor 20 mg q.h.s. 3. Vimpat 550 mg p.o. b.i.d. 4. Ecotrin 81 mg p.o. daily. 5. Habitrol 14 daily. 6. Lopressor 25 mg p.o. b.i.d. 7. Multivitamins 1 p.o. daily. 8. Protonix 40 mg with breakfast. 9. Tylenol 500 mg q.6h p.r.n. 10.Vitamin B1 100 mg p.o. daily. Once again, the patient is being discharged in stable condition with guarded prognosis. MMODL / IJN: [id number] /
== END 2018-10-28 13:54 | disposition home or self-care (01) ==
LOC: EC 14:08 → 1SOBS 16:33
PROVIDERS: ADMIT Hospitalist; ATTEND Hospitalist
DX: R07.89 Other chest pain (principal); K85.90 Acute pancreatitis without necrosis or infection, unspecified; F10.121 Alcohol abuse with intoxication delirium; E78.5 Hyperlipidemia, unspecified; F17.200 Nicotine dependence, unspecified, uncomplicated; I10 Essential (primary) hypertension; E78.00 Pure hypercholesterolemia, unspecified; G40.909 Epilepsy, unspecified, not intractable, without status epilepticus; Y90.0 Blood alcohol level of less than 20 mg/100 ml; Z87.01 Personal history of pneumonia (recurrent); Z79.899 Other long term (current) drug therapy; I25.2 Old myocardial infarction; Z79.82 Long term (current) use of aspirin; Z86.73 Personal history of transient ischemic attack (TIA), and cerebral infarction without residual deficits; Z81.1 Family history of alcohol abuse and dependence; Z83.3 Family history of diabetes mellitus; Z71.41 Alcohol abuse counseling and surveillance of alcoholic
CPT/HCPCS: 96366 ×3; 96375 ×3; 96376 ×3; 96361; 96365; 99291; 36415; 93005; 85379; 83880; 80061; 80053 ×3; 82150 ×2; 82550; 83690 ×3; 83735; 84484 ×2; 85025 ×3; 85610; 85730 ×2; 81001; 71046; 71275; 74177; G0378 ×3; G0480; S4990 ×2; J2060 ×2; J2270; J1644 ×3; J1170 ×2; Q9967; 80320

== ENCOUNTER 2018-12-15 14:20 | Inpatient (IN) | payer MEDICARE ==
[2018-12-15] MEDS ORDERED: SODIUM CHLORIDE 0.9% 1,000 ML IV STA (14:23)
[2018-12-15] MEDS ORDERED: MORPHINE SULFATE 4 MG/ML SYRINGE IVP STA ×2 (14:56→17:59)
[2018-12-15] MEDS ORDERED: LORazepam 2 MG/ML INJ IV STA (14:56)
--- NOTE | 2018-12-15 15:09 | ED ---
Chest Pain HPI - General Chief Complaint: Chest Pain Stated Complaint: Chest discomfort Time Seen by Provider: 12/15/18 14:22 Source: patient, EMS, RN notes reviewed, old records reviewed Mode of arrival: EMS Limitations: no limitations - History of Present Illness Initial Comments: This is a 68-year-old male the ER for evaluation presents today for evaluation regards to chest pain. Patient's complaining of chest pain and shoulder pain. Patient recent fall, complaining of neck pain and left shoulder pain difficulty moving left shoulder. No recent travel history no sick contacts. Patient states he does have history of [place] 2 years ago. No current shortness of breath. MD Complaint: chest pain (Left Shoulder Pain, recent fall) -: days(s) Pain Location: left chest, right chest Pain Radiation: LUE Severity: mild Severity scale (1-10): 2 Quality: aching Consistency: intermittent Improves With: nothing Worsens With: nothing Treatments Prior to Arrival: none - Related Data Home Medications Medication Instructions Recorded Confirmed Atorvastatin [Lipitor] 20 mg PO HS 10/26/18 12/15/18 Lacosamide [Vimpat] 50 mg PO BID 10/26/18 12/15/18 LORazepam [Ativan] 0.25 mg PO DAILY 12/15/18 12/15/18 Pantoprazole [Protonix] 40 mg PO DAILY 12/15/18 12/15/18 levETIRAcetam [Keppra] 1,000 mg PO Q12HR 12/15/18 12/15/18 Previous Rx's Medication Instructions Recorded Aspirin EC [Ecotrin Low Dose] 81 mg PO DAILY #30 tablet. 04/07/18 Multivitamins, Thera [Multivitamin 1 tab PO DAILY@1200 #30 tablet 04/07/18 (formulary)] Thiamine [Vitamin B-1] 100 mg PO DAILY@1200 #30 tab 04/07/18 Acetaminophen Tab [Tylenol Tab] 500 mg PO Q6H PRN #30 tablet 10/28/18 Metoprolol Tartrate [Lopressor] 25 mg PO BID #60 tab 10/28/18 Allergies Allergy/AdvReac Type Severity Reaction Status Date / Time No Known Allergies Allergy Verified 12/15/18 14:39 Review of Systems ROS Statement: Those systems with pertinent positive or pertinent negative responses have been documented in the HPI. ROS Other: All systems not noted in ROS Statement are negative. EKG Findings - EKG Comments: EKG Findings:: EKG shows sinus rhythm rate of 86, AL 100, QRS 94, QTC 440 Past Medical History Past Medical History: No Reported History, Unable to Obtain Additional Past Medical History / Comment(s): ETOH abuse with past withdrawal DTs and seizures, R foot fracture 1 year ago-not healing properly, kper Dr. Singer office visit note, pt recently seen 07/12/17 with perianal abscess. Last Myocardial Infarction Date:: 2017? History of Any Multi-Drug Resistant Organisms: None Reported Past Surgical History: No Surgical Hx Reported, Unable to Obtain Additional Past Surgical History / Comment(s): Pt states he has never had surgery but his son, Alexandre believes he has recently had a colonoscopy. Past Anesthesia/Blood Transfusion Reactions: No Reported Reaction Additional Past Anesthesia/Blood Transfusion Reaction / Comment(s): "never received any blood transfusion" Past Psychological History: No Psychological Hx Reported Smoking Status: Current some day smoker Past Alcohol Use History: Daily Past Drug Use History: None Reported - Past Family History Father History Unknown: Yes Family Medical History: Diabetes Mellitus Additional Family Medical History / Comment(s): Father was an alcoholic. Mother History Unknown: Yes Family Medical History: Diabetes Mellitus General Exam Limitations: no limitations General appearance: alert, in no apparent distress Head exam: Present: atraumatic, normocephalic, normal inspection Eye exam: Present: normal appearance, PERRL, EOMI. Absent: scleral icterus, conjunctival injection, periorbital swelling ENT exam: Present: normal exam, mucous membranes moist Neck exam: Present: normal inspection. Absent: tenderness, meningismus, lymphadenopathy Respiratory exam: Present: normal lung sounds bilaterally. Absent: respiratory distress, wheezes, rales, rhonchi, stridor Cardiovascular Exam: Present: regular rate, normal rhythm, normal heart sounds. Absent: systolic murmur, diastolic murmur, rubs, gallop, clicks GI/Abdominal exam: Present: soft, normal bowel sounds. Absent: distended, tenderness, guarding, rebound, rigid Extremities exam: Present: normal inspection, full ROM, normal capillary refill. Absent: tenderness, pedal edema, joint swelling, calf tenderness Back exam: Present: normal inspection Neurological exam: Present: alert, oriented X3, CN II-XII intact Psychiatric exam: Present: normal affect, normal mood Skin exam: Present: warm, dry, intact, normal color. Absent: rash Course Vital Signs 12/15/18 12/15/18 14:29 18:08 Temperature 99.3 F Pulse Rate 86 78 Respiratory 18 18 Rate Blood Pressure 164/98 148/87 O2 Sat by Pulse 98 98 Oximetry - Reevaluation(s) Reevaluation #1: 12/15/18 16:33 Medical records reviewed Reevaluation #2: 12/15/18 18:29 Patient with persistent chest pain despite treatment Chest Pain MDM - MDM 68 male the ER today for evaluation. Patient presents today for evaluation regarding chest pain. Chest pain control here in the ER. Lab values EKG negative. Patient can be admitted for cardiology observation Disposition Clinical Impression: Chest pain Disposition: ADMITTED IP TO THIS HOSP Condition: Undetermined Instructions (If sedation given, give patient instructions): Chest Pain (ED) Is patient prescribed a controlled substance at d/c from ED?: No Referrals: Thony Singer MD [Primary Care Provider] - 1-2 days
[2018-12-15 15:16] LABS: Basophils % (A) 0 %; Eosinophils # (A) 0.1 k/uL (0-0.7); Eosinophils % (A) 1 %; HCT 39.1 % (39.0-53.0); HGB 13.2 gm/dL (13.0-17.5); Lymphocytes # (A) 0.8 k/uL (1.0-4.8); Lymphocytes % (A) 8 %; MCH 32.7 pg (25.0-35.0); MCHC 33.7 g/dL (31.0-37.0); MCV 96.9 fL (80.0-100.0); Mean Platelet Volume 8.1; Monocytes # (A) 1.2 k/uL (0-1.0); Monocytes % (A) 12 %; Neutrophils # (A) 7.6 k/uL (1.3-7.7); Neutrophils % (A) 77 %; Platelet Count 161 k/uL (150-450); RBC 4.03 m/uL (4.30-5.90); RDW 14.9 % (11.5-15.5)
[2018-12-15 15:25] LABS: ALT 31 U/L (21-72); AST 37 U/L (17-59); African American GFR (CKD) >90 (>60 ml/min/1.73 sqM); Albumin 4.2 g/dL (3.5-5.0); Alcohol <10 mg/dL; Alkaline Phosphatase 45 U/L (38-126); Anion Gap 10 mmol/L; Blood Urea Nitrogen 14 mg/dL (9-20); Calcium 9.4 mg/dL (8.4-10.2); Carbon Dioxide 27 mmol/L (22-30); Chloride 98 mmol/L (98-107); Glucose 107 mg/dL (74-99); Magnesium 1.5 mg/dL (1.6-2.3); Phosphorus 3.5 mg/dL (2.5-4.5); Potassium 3.6 mmol/L (3.5-5.1); Sodium 135 mmol/L (137-145); Total Bilirubin 1.2 mg/dL (0.2-1.3); Total Protein 7.5 g/dL (6.3-8.2)
[2018-12-15 15:31] LABS: Partial Thromboplastin Time 25.5 sec (22.0-30.0); Prothrombin Time 10.4 sec (9.0-12.0)
--- NOTE | 2018-12-15 15:38 | XR ---
EXAMINATION TYPE: XR shoulder complete LT DATE OF EXAM: 12/15/2018 CLINICAL HISTORY: Pain after falling injury yesterday. TECHNIQUE: Three views of the left shoulder are obtained. COMPARISON: Chest x-ray October 26, 2018. FINDINGS: There is no acute fracture/dislocation evident in the left shoulder. Mild to moderate narr owing the acromioclavicular joint redemonstrated. There is old healed fracture middle one third left clavicle redemonstrated. Cannot exclude old fracture injury to the left scapula which is suspected b ut stable. Glenohumeral joint shows mild narrowing. The visualized ribs are intact and unremarkable. IMPRESSION: There is no acute fracture or dislocation in the left shoulder.
--- NOTE | 2018-12-15 15:40 | XR ---
EXAMINATION TYPE: XR chest 2V DATE OF EXAM: 12/15/2018 COMPARISON: Chest x-ray CTA chest October 26, 2018 HISTORY: Chest pain after falling injury yesterday. TECHNIQUE: Frontal and lateral views of the chest are obtained. FINDINGS: There is chronic parenchymal change without suspicious focal air space opacity, pleural ef fusion, or pneumothorax seen. The cardiac silhouette size is within normal limits. Multiple old post erior lateral left mid rib fractures are redemonstrated. Calcified pleural plaques bilaterally are ag ain seen. IMPRESSION: Chronic changes without acute pulmonary process.
--- NOTE | 2018-12-15 15:58 | CT ---
EXAMINATION TYPE: CT brain cspine wo con DATE OF EXAM: 12/15/2018 COMPARISON: Prior exam CT brain and cervical spine 04/03/2018 HISTORY: Fall in bathtub. No known head injury. Neck and back pain. CT DLP: 1314.1 mGycm Automated exposure control for dose reduction was used. TECHNIQUE: CT scan of the head and cervical spine are performed without contrast. FINDINGS: Abnormal low attenuation present within the right parietal brain is again seen and is cons istent with prior cerebrovascular accident with loss of greenwood-white junction, effacement of the sulci similar to prior exam. There is no acute intracranial hemorrhage, mass effect, or midline shift ident ified. The ventricles and sulci are within normal limits in size. The globes are intact and the vis ualized sinuses are remarkable for opacification of the right maxillary sinus. Cervical spine is visualized in its entirety from C1 through upper thoracic levels and demonstrates stable alignment without evidence of acute fracture or dislocation. Prevertebral soft tissue appears within normal limits. The C1-C2 articulation is unremarkable. Multilevel spondylosis is again noted . There is multilevel facet arthropathy change. Loss of the normal cervical lordosis is noted. There is multilevel foraminal encroachment. Sclerotic focus in the right lamina of C2 is stable. Apical emphysematous changes noted within the lungs. There is a medial nondisplaced right scapular fr acture noted at the margin of the exam. IMPRESSION: 1. There is no acute fracture or dislocation evident in the cervical spine. 2. No acute intracranial hemorrhage, mass effect, or midline shift is seen. 3. Oblique medial nondisplaced right scapular fracture
[2018-12-15] MEDS ORDERED: RX INFO: IV CONTRAST WAS GIVEN 1 EACH MISC MISCELLANE PRN (16:31)
--- NOTE | 2018-12-15 17:25 | CT ---
EXAMINATION TYPE: CT chest w con DATE OF EXAM: 12/15/2018 COMPARISON: 10/26/2018 HISTORY: Chest pain x 2 days after falling injury. CT DLP: 398.6 mGycm Automated exposure control for dose reduction was used. CONTRAST: CT scan of the chest is performed with IV Contrast, patient injected with 100 mL of Isovue 300. FINDINGS: There is mild pulmonary emphysema. There is bilateral calcified pleural plaque on the anterior and po sterior chest wall. Heart size is normal. There is no pericardial effusion. There is no pleural effus ion. There is slight decreased contrast enhancement of the left kidney compared to the right. There i s minimal reticular density at the posterior lung bases. There is no mediastinal adenopathy. There are no hilar masses. Thoracic aorta shows mild atheromatous change. There is no sign of aneurysm or dissection. There is spurring in the thoracic spine. I see n o bony destructive process.. IMPRESSION: Mild pulmonary emphysema. Calcified pleural plaque. Chest unchanged compared to old exam . Slight decreased enhancement of the left kidney that could be a change compared to CT scan of 9 and could relate to renal injury
[2018-12-15] MEDS ORDERED: MORPHINE SULFATE 4 MG/ML SYRINGE IV PRN (18:30)
[2018-12-15] MEDS ORDERED: THIAMINE 100 MG/ML 2 ML VIAL IM STA (18:30)
[2018-12-15] MEDS ORDERED: NITROGLYCERIN SL TABS 0.4 MG TAB SUBLINGUAL PRN (18:30)
[2018-12-15] MEDS ORDERED: ASPIRIN 81 MG PO STA (18:30)
[2018-12-15] MEDS: THIAMINE 100 MG TAB PO SCH (19:19)
[2018-12-15] MEDS: METOPROLOL TARTRATE 25 MG TAB PO SCH (20:22)
[2018-12-15] MEDS: LORazepam 2 MG/ML INJ IV PRN ×4 (22:00→23:45)
[2018-12-15] MEDS: ACETAMINOPHEN TAB 325 MG TAB PO PRN (23:09)
[2018-12-16] MEDS ORDERED: cloNIDine HCL 0.1 MG TAB PO PRN (00:04)
[2018-12-16 00:26] LABS: Glucose,Whole Blood 126 mg/dL (75-99)
[2018-12-16] MEDS ORDERED: TEMAZEPAM 15 MG CAP PO PRN (00:30)
[2018-12-16] MEDS ORDERED: HYDROmorphone 0.5 MG/0.5 ML SYRINGE IVP PRN (00:30)
[2018-12-16] MEDS ORDERED: NALOXONE 0.4 MG/ML 1 ML VIAL IV PRN (01:05)
[2018-12-16 01:53] LABS: Appearance,Urine Clear (Clear); Bilirubin,Urine Negative (Negative); Blood,Urine Small (Negative); Color,Urine Yellow; Glucose,Urine (UA) Negative (Negative); Hyaline Casts,Urine 7 /lpf (0-2); Ketones,Urine 1+ (Negative); Leukocyte Esterase,Urine Negative (Negative); Mucus,Urine Rare /hpf; Nitrite,Urine Negative (Negative); Protein,Urine 1+ (Negative); RBC,Urine 23 /hpf (0-5); Specific Gravity,Urine 1.033 (1.001-1.035); Squamous Epithelial Cell,Urine <1 /hpf (0-4)
[2018-12-16] MEDS: cloNIDine HCL 0.1 MG TAB PO SCH ×4 (02:08→21:25)
--- NOTE | 2018-12-16 02:38 | CT ---
EXAM: CT Head Without Intravenous Contrast CLINICAL HISTORY: Altered Mental Status TECHNIQUE: Axial computed tomography images of the head/brain without intravenous contrast. CTDI is 50 mGy and DLP is 1424 mGy-cm. This CT exam was performed using one or more of the following dose reduction techniques: automated exposure control, adjustment of the mA and/or kV according to patient size, and/or use of iterative reconstruction technique. COMPARISON: December 15, 2018 FINDINGS: Artifacts: Motion/streak artifacts. Brain: Grossly, no acute intracranial hemorrhage. No mass effect or midline shift. No CT evidence of acute infarct. 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 Ventricles: Unremarkable. No ventriculomegaly. Bones/joints: Unremarkable. No acute fracture. Soft tissues: Unremarkable. Sinuses: Chronic sinusitis. Mastoid air cells: Unremarkable as visualized. No mastoid effusion. IMPRESSION: No acute findings.
[2018-12-16 03:20] LABS: Basophils % (A) 0 %; Eosinophils # (A) 0.1 k/uL (0-0.7); Eosinophils % (A) 1 %; HCT 38.8 % (39.0-53.0); HGB 12.7 gm/dL (13.0-17.5); Lymphocytes # (A) 1.1 k/uL (1.0-4.8); Lymphocytes % (A) 10 %; MCH 32.3 pg (25.0-35.0); MCHC 32.8 g/dL (31.0-37.0); MCV 98.4 fL (80.0-100.0); Mean Platelet Volume 7.5; Monocytes # (A) 1.2 k/uL (0-1.0); Monocytes % (A) 12 %; Neutrophils # (A) 7.9 k/uL (1.3-7.7); Neutrophils % (A) 74 %; Platelet Count 144 k/uL (150-450); RBC 3.94 m/uL (4.30-5.90); RDW 14.6 % (11.5-15.5); WBC 10.6 k/uL (3.8-10.6)
[2018-12-16 03:25] LABS: ALT 26 U/L (21-72); AST 35 U/L (17-59); African American GFR (CKD) >90 (>60 ml/min/1.73 sqM); Albumin 3.8 g/dL (3.5-5.0); Alkaline Phosphatase 39 U/L (38-126); Anion Gap 11 mmol/L; Blood Urea Nitrogen 13 mg/dL (9-20); Calcium 8.9 mg/dL (8.4-10.2); Carbon Dioxide 26 mmol/L (22-30); Chloride 96 mmol/L (98-107); Cholesterol 131 mg/dL (<200); Glucose 109 mg/dL (74-99); HDL Cholesterol 41 mg/dL (40-60); LDL Cholesterol,Calculated 75 mg/dL (0-99); Magnesium 1.4 mg/dL (1.6-2.3); Potassium 3.5 mmol/L (3.5-5.1); Sodium 133 mmol/L (137-145); Total Bilirubin 1.1 mg/dL (0.2-1.3); Total Protein 6.9 g/dL (6.3-8.2); Triglycerides 73 mg/dL (<150)
[2018-12-16] MEDS ORDERED: Magnesium Replacement Protocol 1 EACH MISC MISCELLANE PRN (03:33)
[2018-12-16] MEDS ORDERED: Potassium Replacement Protocol 1 EACH MISC MISCELLANE PRN (03:35)
[2018-12-16] MEDS: POTASSIUM CHLORIDE ER 20 MEQ TAB.ER PO SCH ×2 (03:43→04:58)
[2018-12-16] MEDS: MAGNESIUM SULFATE-D5W PMX 1 GM in DEXTROSE/WATER 1 100ML.BAG IVPB SCH ×3 (03:49→06:03)
[2018-12-16] MEDS: LORazepam 2 MG/ML INJ IV PRN ×5 (06:00→19:59)
[2018-12-16] MEDS: THIAMINE 100 MG TAB PO SCH ×2 (08:06→17:00)
[2018-12-16] MEDS: ASPIRIN 81 MG PO SCH (08:06)
[2018-12-16] MEDS: levETIRAcetam 500 MG TAB PO SCH ×2 (08:06→21:15)
[2018-12-16] MEDS: METOPROLOL TARTRATE 25 MG TAB PO SCH ×2 (08:06→21:15)
[2018-12-16] MEDS: PANTOPRAZOLE 40 MG TABLET PO SCH (08:06)
[2018-12-16] MEDS: ATORVASTATIN 80 MG TAB PO SCH (08:07)
--- NOTE | 2018-12-16 08:21 | HP ---
HISTORY AND PHYSICAL DATE OF SERVICE: 12/15/2018 CHIEF COMPLAINT: Chest pain. HISTORY OF PRESENT ILLNESS: This 68-year-old gentleman with a past medical history of multiple medical problems including history of pancreatitis, history of delirium tremens, history EtOH, history of pneumonia, history of perianal abscess, being followed by Dr. Singer in the outpatient setting, was complaining of chest pain. The pain is mostly in the central part and the right side and the patient came to [facility] admitted for further evaluation and treatment. Initial troponins are negative and the EKG was personally reviewed by me showed no acute changes except some nonspecific changes and the patient also had a chest CT which revealed mild pulmonary emphysema and calcified plaques and no evidence of pulmonary embolism. There is no history of any fever, rigor or chills. No history of headache, loss of consciousness or seizures at this time. PAST MEDICAL HISTORY: History of EtOH, history of delirium tremens, history of seizure disorder, history of nicotine dependence, EtOH. MEDICATIONS: Medications prior to admission include home medications are: 1. Protonix 40 mg p.o. daily. 2. Lipitor 20 mg q.h.s. 3. Tylenol 500 mg q.6 p.r.n. 4. Keppra 1000 mg b.i.d. 5. Vitamin B1, 100 mg daily. 6. Multivitamins one p.o. daily. 7. Lopressor 25 mg p.o. b.i.d. 8. Vimpat 50 mg p.o. b.i.d. 9. Ativan 0.25 mg daily. 10.Ecotrin 81 mg daily. ALLERGIES: Allergies are none. FAMILY HISTORY: History of diabetes mellitus, history of alcoholism in the father. SOCIAL HISTORY: History of alcohol and history of nicotine dependence, continued ongoing. REVIEW OF SYSTEMS: ENT: No diminished hearing or diminished vision. CARDIOVASCULAR SYSTEM: As mentioned earlier. RESPIRATORY SYSTEM: As mentioned earlier. GI: As mentioned earlier. : No dysuria. NERVOUS SYSTEM: No numbness or weakness. ALLERGY/IMMUNOLOGY: No asthma, hayfever. MUSCULOSKELETAL: As mentioned earlier. HEMATOLOGY/ONCOLOGY: As mentioned earlier. RHEUMATOLOGY: Negative. PSYCHIATRY: As mentioned earlier. NEUROLOGY: As mentioned earlier. PHYSICAL EXAMINATION: The patient is alert and oriented x3. The patient is slightly tremulous. Pulse is 96, blood pressure 160/101, respiration 20, temperature 98.4, pulse ox 96% on room air. HEENT: Conjunctivae normal. Oral mucosa moist. NECK is no jugular venous distention. No carotid bruit. No lymph node enlargement. CARDIOVASCULAR: S1, S2 muffled. No S3, no S4. RESPIRATORY: Breath sounds diminished at the bases. No rhonchi. No crackles. ABDOMEN: Soft, nontender. No mass palpable. LEGS: No edema, no swelling. NERVOUS SYSTEM: As mentioned earlier. Moves all 4 limbs. No focal motor or sensory deficits. LYMPHATICS: No lymphadenopathy of the neck, axillae or groin. SKIN: No ulcer, rash or bleeding. JOINTS: No active deforming arthropathy. LABS: WBC 10, hemoglobin 13.2. Sodium 135, potassium 3.6. ASSESSMENT: 1. Chest pain possible unstable angina. 2. Possible early delirium tremens. 3. History of EtOH. 4. Hypomagnesemia. 5. Hyponatremia. 6. History of myocardial infarction. 7. History of seizure disorder. 8. History of nicotine dependence. 9. History of pancreatitis. 10.History of pneumonia. 11.History of perianal abscess. RECOMMENDATIONS AND DISCUSSION: This 68-year-old gentleman who presented with multiple complex medical issues, we will monitor the patient closely. Continue the current medications. Continue symptomatic treatment. Cardiology consultation. Unstable angina protocol and rule out myocardial infarction. I would also recommend CIWA protocol, clonidine. Prognosis guarded because of multiple complex medical issues. Resume the home medications. Further recommendations to follow. ETOH cessation has been advised. Also recommend evaluation by high school social studies tutor also. Prognosis guarded. Further recommendations to follow A copy of dictation forwarded to Dr. Singer who is the primary physician. MMODL / IJN: [id number] / [facility]
--- NOTE | 2018-12-16 08:31 | XR ---
EXAMINATION TYPE: XR chest 1V portable DATE OF EXAM: 12/16/2018 HISTORY: Shortness of breath. COMPARISON: December 15, 2018 TECHNIQUE: Single view of the chest is submitted. FINDINGS: Demonstrated are scattered senescent parenchymal change. COPD changes. There is no evidence for focal infiltrate. The heart is stable. Hilar and mediastinal structures are within normal limits. Degenerative changes are seen of the dorsal spine. IMPRESSION: 1. Chronic changes without evidence for acute pulmonary disease.
[2018-12-16] MEDS ORDERED: ASPIRIN 325 MG TAB PO SCH (09:00)
[2018-12-16] MEDS: LACOSAMIDE 50 MG TABLET PO SCH ×2 (09:46→21:24)
--- NOTE | 2018-12-16 10:57 | P.CNPUL ---
History of Present Illness Consult date: 12/16/18 Requesting physician: Mitch Costa Reason for consult: other (ICU management, acute alcohol withdrawal.) Chief complaint: Chest pain History of present illness: This is a 68-year-old white male with history of multiple medical problems including alcoholism, history of pancreatitis, delirium tremens, primarily a patient of Dr. Singer. Patient presented to the ER mostly with symptoms of few hours history of chest pain, pain described as pressure over the right side of the chest, without any radiation, not associated with any diaphoresis. And not associated with palpitations or syncopal episodes. Initial workup including troponin, EKG, chest x-ray, were all normal. CT of the chest was also done, it showed mild COPD/emphysema, and calcified pleural plaques. There was no evidence of pulmonary embolism. Patient had no cough, no fever, no chills, no hemoptysis. Patient was admitted and apparently shortly after he was admitted he was showing signs of alcohol withdrawal, treated with Ativan, but apparently he required relatively high dose of Ativan to keep him calm, then arrangements were made to transfer the patient to the ICU. Patient was placed on the [facility] protocol. And I was asked to see him on consultation. Patient is lethargic, arousable, but does not seem to be interested in following any instructions, and request to be left alone. Review of Systems ROS unobtainable: due to mental status Past Medical History Past Medical History: Myocardial Infarction ([place]), Seizure Disorder Additional Past Medical History / Comment(s): ETOH abuse with past withdrawal DTs and seizures, R foot fracture 1 year ago-not healing properly, kper Dr. Singer office visit note, pt recently seen 07/12/17 with perianal abscess. Last Myocardial Infarction Date:: 10/2018 History of Any Multi-Drug Resistant Organisms: None Reported Past Surgical History: No Surgical Hx Reported, Unable to Obtain Additional Past Surgical History / Comment(s): Pt states he has never had surgery but his son, Alexandre believes he has recently had a colonoscopy. Past Anesthesia/Blood Transfusion Reactions: No Reported Reaction Additional Past Anesthesia/Blood Transfusion Reaction / Comment(s): "never received any blood transfusion" Past Psychological History: No Psychological Hx Reported Additional Psychological History / Comment(s): pt stated he drinks about 5 beers/day. started smoking at age 15 and has cut down to 1/2 ppd Smoking Status: Current every day smoker Past Alcohol Use History: Daily Additional Past Alcohol Use History / Comment(s): Drinks 5 beers/day. Last drink 12/12 Past Drug Use History: None Reported - Past Family History Father History Unknown: Yes Family Medical History: Diabetes Mellitus Additional Family Medical History / Comment(s): Father was an alcoholic. Mother History Unknown: Yes Family Medical History: Diabetes Mellitus Medications and Allergies Home Medications Medication Instructions Recorded Confirmed Type Aspirin EC [Ecotrin Low Dose] 81 mg PO DAILY #30 tablet. 04/07/18 12/15/18 Rx Multivitamins, Thera [Multivitamin 1 tab PO DAILY@1200 #30 tablet 04/07/18 12/15/18 Rx (formulary)] Thiamine [Vitamin B-1] 100 mg PO DAILY@1200 #30 tab 04/07/18 12/15/18 Rx Atorvastatin [Lipitor] 20 mg PO HS 10/26/18 12/15/18 History Lacosamide [Vimpat] 50 mg PO BID 10/26/18 12/15/18 History Acetaminophen Tab [Tylenol Tab] 500 mg PO Q6H PRN #30 tablet 10/28/18 12/15/18 Rx Metoprolol Tartrate [Lopressor] 25 mg PO BID #60 tab 10/28/18 12/15/18 Rx LORazepam [Ativan] 0.25 mg PO DAILY 12/15/18 12/15/18 History Pantoprazole [Protonix] 40 mg PO DAILY 12/15/18 12/15/18 History levETIRAcetam [Keppra] 1,000 mg PO Q12HR 12/15/18 12/15/18 History Allergies Allergy/AdvReac Type Severity Reaction Status Date / Time No Known Allergies Allergy Verified 12/15/18 14:39 Physical Exam Vitals: Vital Signs Temp Pulse Pulse Resp BP BP Pulse Ox 12/16/18 10:00 71 18 147/89 98 12/16/18 09:30 78 8 L 147/89 99 12/16/18 09:00 72 12 147/97 99 12/16/18 08:30 77 20 147/97 98 12/16/18 08:00 98.4 F 90 10 L 140/92 12/16/18 07:30 16 140/92 98 12/16/18 07:00 74 12 98 12/16/18 06:30 81 16 142/103 95 12/16/18 06:00 70 14 153/107 95 12/16/18 05:30 71 13 96 12/16/18 05:00 80 19 95 12/16/18 04:30 72 10 L 140/102 96 12/16/18 04:00 69 15 95 12/16/18 03:30 73 16 142/94 96 12/16/18 03:00 77 14 90 L 12/16/18 02:50 73 12 95 12/16/18 02:40 75 12 95 12/16/18 02:30 78 22 97 12/16/18 02:20 73 15 92 L 12/16/18 02:10 75 15 91 L 12/16/18 01:40 78 18 142/94 95 12/16/18 01:30 72 12 94 L 12/16/18 01:20 68 16 92 L 12/16/18 01:10 73 19 142/94 92 L 12/16/18 01:00 72 15 92 L 12/16/18 00:50 73 14 139/99 90 L 12/16/18 00:45 98.0 F 73 13 140/100 93 L 12/16/18 00:00 18 12/15/18 23:59 98.4 F 82 18 166/101 99 12/15/18 21:00 18 12/15/18 20:15 99.1 F 80 18 170/105 92 L 12/15/18 19:24 99.3 F 84 18 175/100 96 12/15/18 18:08 78 18 148/87 98 12/15/18 14:29 99.3 F 86 18 164/98 98 Intake and Output 12/15/18 12/16/18 12/16/18 22:59 06:59 14:59 Intake Total 700 640 Output Total 200 330 610 Balance -200 370 30 Intake: IV 400 400 Sodium Chloride 0.9% 1, 400 400 000 ml @ 100 mls/hr IV . Q10H STA Rx#:[id number] Intake, IV Titration 300 Amount Magnesium Sulfate-D5w Pmx 300 1 gm In Dextrose/Water 1 100ml.bag @ 100 mls/hr IVPB Q1H LAUREL Rx#: [id number] Oral 240 Output: Urine 200 330 610 Other: Voiding Method Urinal Indwelling Catheter Indwelling Catheter # Voids 1 General appearance: Revealed a 68-year-old white male, lethargic, received Ativan earlier, in no distress. Head exam: Atraumatic, normocephalic. Eye exam: PERRLA, EOMI, no icterus, ENT exam: Normal nasal mucosa, throat is clear, no evidence of nasal discharge. Neck exam: Supple, no neck masses, no JVD, no stridor. Respiratory exam: Symmetrical chest expansion, lungs are clear. No crackles or rhonchi or wheezes, diminished at the bases only. Cardiovascular Exam: Normal S1 and S2, no S3 gallop, no murmur. GI/Abdominal exam: Soft nontender no megaly no rebound no guarding. Extremities exam: No clubbing edema or cyanosis. Neurological exam: Lethargic, arousable, does not follow instructions, requested to be left alone. No gross focal neurologic deficit otherwise. Psychiatric exam: Blunted mood and affect, cannot assess mental status, patient is lethargic. Skin exam: No rashes, good skin turgor, Lymphatics: No lymphadenopathy. Results - Laboratory Findings CBC and BMP: 12/16/18 03:06 12/16/18 07:58 PT/INR, D-dimer PT 10.4 sec (9.0-12.0) 12/15/18 14:55 INR 1.0 (<1.2) 12/15/18 14:55 Abnormal lab findings: Abnormal Labs 12/15/18 12/15/18 12/16/18 14:55 14:55 00:24 RBC 4.03 L Hgb Hct Plt Count Neutrophils # Lymphocytes # 0.8 L Monocytes # 1.2 H Sodium 135 L Chloride Creatinine 0.48 L Glucose 107 H POC Glucose (mg/dL) 126 H Magnesium 1.5 L Urine Protein Urine Ketones Urine Blood Urine RBC Hyaline Casts Urine Mucus 12/16/18 12/16/18 12/16/18 01:00 03:06 03:06 RBC 3.94 L Hgb 12.7 L Hct 38.8 L Plt Count 144 L Neutrophils # 7.9 H Lymphocytes # Monocytes # 1.2 H Sodium 133 L Chloride 96 L Creatinine 0.43 L Glucose 109 H POC Glucose (mg/dL) Magnesium 1.4 L Urine Protein 1+ H Urine Ketones 1+ H Urine Blood Small H Urine RBC 23 H Hyaline Casts 7 H Urine Mucus Rare H - Diagnostic Findings CT scan - chest: image reviewed (As noted in HPI.) Assessment and Plan Assessment: Impression: 1 atypical chest pain 2 history of alcoholism 3 acute alcohol withdrawal 4 history of nicotine dependence syndrome 5 history of seizure disorder 6 history of pancreatitis 7 history of perianal abscess 8 history of myocardial infarction and underlying coronary artery disease Recommendation: Agree with the present treatment plan, continue to monitor the patient in the ICU, placed on the CIWA protocol, continue GI and DVT prophylaxis, cardiology to evaluate the patient regarding his chest pain, will continue to follow. We'll continue to monitor in the ICU closely. Time with Patient: Greater than 30
--- NOTE | 2018-12-16 10:58 | ECHOF ---
Referral Reason:cp MEASUREMENTS -------- HEIGHT: 185.4 cm WEIGHT: 88.5 kg BP: 142/103 IVSd: 1.3 cm (0.6 - 1.1) LVIDd: 4.4 cm (3.9 - 5.3) LVPWd: 1.5 cm (0.6 - 1.1) IVSs: 1.7 cm LVIDs: 3.3 cm LVPWs: 1.6 cm Ao Diam: 3.3 cm (2.0 - 3.7) AV Cusp: 1.7 cm (1.5 - 2.6) LA Diam: 3.2 cm (2.7 - 3.8) MV EXCURSION: 24.599 mm (> 18.000) MV EF SLOPE: 142 mm/s (70 - 150) EPSS: 2.8 cm MV E Wilder: 0.40 m/s MV DecT: 239 ms MV A Wilder: 0.71 m/s MV E/A Ratio: 0.56 FINDINGS -------- Sinus rhythm. This was a technically difficult study with suboptimal views. Pt. not compliant. The left ventricular size is normal. There is mild concentric left ventricular hypertrophy. Overa ll left ventricular systolic function is mildly impaired with, an EF between 45 - 50 %. Basal infer olateral hypokinesis. The right ventricle is normal in size. The left atrial size is normal. The right atrial size is normal. Lumason used Aortic valve is trileaflet and is mildly thickened. The mitral valve is normal. The mitral valve leaflets are mildly thickened. Mild mitral regurgita tion is present. Mild tricuspid regurgitation present. Right ventricular systolic pressure is normal at < 35 mmHg. There is no pulmonic regurgitation present. The aortic root size is normal. IVC Not well visulized. There is no pericardial effusion. CONCLUSIONS -------- 1. Sinus rhythm. 2. This was a technically difficult study with suboptimal views. 3. Pt. not compliant. 4. The left ventricular size is normal. 5. There is mild concentric left ventricular hypertrophy. 6. Overall left ventricular systolic function is mildly impaired with, an EF between 45 - 50 %. 7. Basal inferolateral hypokinesis. 8. The right ventricle is normal in size. 9. The left atrial size is normal. 10. The right atrial size is normal. 11. Lumason used 12. Aortic valve is trileaflet and is mildly thickened. 13. The mitral valve is normal. 14. The mitral valve leaflets are mildly thickened. 15. Mild mitral regurgitation is present. 16. Mild tricuspid regurgitation present. 17. Right ventricular systolic pressure is normal at < 35 mmHg. 18. There is no pulmonic regurgitation present. 19. The aortic root size is normal. 20. IVC Not well visulized. 21. There is no pericardial effusion. SECURITY POLICE: Mechelle David RDCS
[2018-12-16 11:47] VITALS: BMI 24.3
[2018-12-16] MEDS: MULTIVITAMINS, THERA 1 EACH TAB PO SCH (12:35)
[2018-12-16] MEDS ORDERED: SODIUM CHLORIDE 0.9% 1,000 ML with POTASSIUM CHLORIDE 20 MEQ, MVI, ADULT NO.4 WITH VIT ... IV SCH ×5 (12:45)
--- NOTE | 2018-12-16 14:18 | CONS ---
CONSULTATION Mr. Osullivan is a 68-year-old male who was admitted yesterday to the OBS unit subsequently transferred to the ICU. The patient has a known history of chronic alcoholism. Apparently tripped and fell early this week. Came in with shoulder discomfort, back discomfort and chest discomfort. In the OBS unit, he was receiving Ativan and because of the dose that he required, he was subsequently transferred to the ICU. He is awake, alert, but confused. He says that he had a heart attack 2 years ago, although I do not have a clear history documented in the chart. He has a known history of chronic alcohol and tobacco use. Had a prior history of suicidal ID ideation. He complains of dyspnea and chest discomfort. He complains of dizziness and palpitation. He denies any syncope. He has no history of PND, orthopnea, or peripheral edema. He has the diagnosis of stroke. He appears older than his stated age. His coronary risk factors are remarkable for the history of smoking, history of hyperlipidemia. MEDICATIONS: His medications include Keppra, vitamin B, Protonix, Lopressor 25 mg twice a day, Ativan, Lipitor 80 mg daily, and aspirin. REVIEW OF SYSTEMS: Although the accuracy is limited, RESPIRATORY SYSTEM: The patient complains of dyspnea on exertion. Denies any recent wheezing. GI SYSTEM: He denies any recent GI bleeding. No peptic ulcer disease. SYSTEM: No dysuria or hematuria. NERVOUS SYSTEM: He had a history of stroke or seizure in the past. PHYSICAL EXAMINATION: He is a 68-year-old male, alert, confused at times in no apparent distress. Blood pressure 142/103 with a heart in the 80s. HEAD: Normocephalic. EYES: Sclerae nonicteric. NECK: No bruit. LUNGS: With decreased air exchange, no wheezes. HEART: Regular rate and rhythm. S1, S2. No S3. No rub appreciated. ABDOMEN: Soft, nontender. Positive bowel sounds. No organomegaly. EXTREMITIES: No edema. LAB DATA: Lab data revealed a hemoglobin 12.7, BUN and creatinine of 13 and 0.43, potassium 3.5. Troponin less than 0.012 for 3 samples. NT proBNP of 577, lipase 181. Serum alcohol of less than 10. EKG revealed a sinus mechanism, normal axis and intervals. No acute changes. Chest x-ray shows no acute infiltrate. IMPRESSION: 1. Generalized achiness including the chest related to a fall. No evidence to suggest any cardiac arrhythmia. 2. History of alcoholism. 3. History of hypertension. 4. Chronic tobacco use. 5. History of stroke. 6. History of hyperlipidemia. RECOMMENDATION: From the cardiac standpoint, I see no evidence of active cardiac activity. I will obtain an echocardiogram to evaluate the left ventricular systolic function. We will see him on an as-needed basis. Please feel free to call us for any question. MMODL / IJN: [id number] /
[2018-12-16] MEDS: HYDROcodone/APAP 5-325MG 1 EACH TAB PO PRN (15:14)
[2018-12-16] MEDS ORDERED: POTASSIUM CHLORIDE ER 20 MEQ TAB.ER PO SCH (16:00)
[2018-12-16] MEDS: LISINOPRIL 5 MG TAB PO SCH (17:00)
[2018-12-16] MEDS: MAGNESIUM OXIDE 400 MG TAB PO SCH ×2 (17:00→21:15)
--- NOTE | 2018-12-16 18:15 | PN ---
PROGRESS NOTE DATE OF SERVICE: 12/16/2018. This 68-year-old gentleman who was admitted with chest pain also had significant delirium tremens also last night. The patient had to be transferred to ICU. Patient being closely monitored. Patient is on [facility] protocol. Multiple consultants are following the patient closely including Dr. Law and as well as Cardiology. The patient is confused as mentioned earlier. Patient is mumbling at this time. The brain CT scan was done which showed no evidence of any acute findings. Chest CT was also done yesterday. 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 PAST MEDICAL HISTORY: Reviewed. REVIEW OF SYSTEMS: Could not be taken because of the delirium tremens and change in mental status. CURRENT MEDICATIONS: 1. Tylenol p.r.n. 2. Gorman p.r.n. 3. Aspirin 81 mg. 4. Lipitor 80 mg. 5. Catapres 0.1. 6. Dilaudid p.r.n. 7. Vimpat. 8. Keppra. 9. Ativan. 10.Lopressor. 11.Multivitamins. 12.Narcan. 13.Nitrostat. 14.Restoril. 15.Vitamin B1. PHYSICAL EXAM: Patient is confused and stuporous. The pulse is 76, blood pressure 133/87, respiration 12, temperature normal, pulse ox 97% on room air. HEENT: Conjunctivae normal. Oral mucosa moist. NECK is no jugular venous distention. No carotid bruit. No lymph node enlargement. CARDIOVASCULAR SYSTEMS: S1, S2 muffled. RESPIRATIONS: Breath sounds diminished at the bases. No rhonchi. No crackles. ABDOMEN: Soft, nontender. LEGS: No edema. No swelling. NERVOUS SYSTEM: No focal deficits. Diffuse tremors present. LAB STUDIES: WBC 10.2, hemoglobin 12.7, sodium 133. UA noted. ASSESSMENT: 1. Chest pain, possible musculoskeletal, possible unstable angina. 2. Acute delirium tremens. 3. Change in mental status, metabolic encephalopathy, possibly secondary to delirium tremens. 4. History of ETOH. 5. 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 6. History of ETOH. 7. Hypomagnesemia. 8. Hyponatremia. 9. History of myocardial infarction. 10.History of seizure disorder. 11.History of nicotine dependence. 12.History of pancreatitis. 13.History of pneumonia. 14.History of perianal abscess. 15.FULL CODE. RECOMMENDATIONS AND DISCUSSION: In this 68-year-old gentleman who presented with multiple medical issues, at this time, I recommend continue the current medications, management and symptomatic treatment. Otherwise, at this time, I recommend continue with clonidine. Add a small dose of SCOTT inhibitors. I would also recommend supplement magnesium and closely follow with multiple consultants. CIWA protocol. Overall prognosis extremely guarded because of multiple complex medical issues. Further recommendations to follow. MMODL / IJN: [id number] /
[2018-12-16] MEDS: ACETAMINOPHEN TAB 325 MG TAB PO PRN (19:59)
[2018-12-17 06:31] LABS: Basophils % (A) 0 %; Eosinophils # (A) 0.2 k/uL (0-0.7); Eosinophils % (A) 2 %; HCT 37.8 % (39.0-53.0); HGB 12.2 gm/dL (13.0-17.5); Lymphocytes % (A) 9 %; MCH 31.6 pg (25.0-35.0); MCHC 32.3 g/dL (31.0-37.0); MCV 97.9 fL (80.0-100.0); Mean Platelet Volume 8.2; Monocytes # (A) 1.3 k/uL (0-1.0); Monocytes % (A) 11 %; Neutrophils # (A) 8.7 k/uL (1.3-7.7); Neutrophils % (A) 75 %; Platelet Count 156 k/uL (150-450); RBC 3.86 m/uL (4.30-5.90); RDW 13.2 % (11.5-15.5); WBC 11.6 k/uL (3.8-10.6)
[2018-12-17 06:43] LABS: African American GFR (CKD) >90 (>60 ml/min/1.73 sqM); Anion Gap 11 mmol/L; Blood Urea Nitrogen 9 mg/dL (9-20); Calcium 8.3 mg/dL (8.4-10.2); Carbon Dioxide 24 mmol/L (22-30); Chloride 95 mmol/L (98-107); Glucose 83 mg/dL (74-99); Magnesium 1.6 mg/dL (1.6-2.3); Potassium 3.6 mmol/L (3.5-5.1); Sodium 130 mmol/L (137-145)
[2018-12-17] MEDS: THIAMINE 100 MG TAB PO SCH ×2 (07:22→17:05)
[2018-12-17] MEDS: HYDROcodone/APAP 5-325MG 1 EACH TAB PO PRN ×3 (07:22→20:01)
[2018-12-17] MEDS ORDERED: POTASSIUM CHLORIDE ER 20 MEQ TAB.ER PO SCH (08:00)
[2018-12-17] MEDS: cloNIDine HCL 0.1 MG TAB PO SCH ×2 (08:57→20:01)
[2018-12-17] MEDS: PANTOPRAZOLE 40 MG TABLET PO SCH (08:57)
[2018-12-17] MEDS: ATORVASTATIN 80 MG TAB PO SCH (08:57)
[2018-12-17] MEDS: MAGNESIUM OXIDE 400 MG TAB PO SCH ×3 (08:57→20:00)
[2018-12-17] MEDS: levETIRAcetam 500 MG TAB PO SCH ×2 (08:57→20:00)
[2018-12-17] MEDS: METOPROLOL TARTRATE 25 MG TAB PO SCH ×2 (08:57→20:00)
[2018-12-17] MEDS: MAGNESIUM SULFATE-D5W PMX 1 GM in DEXTROSE/WATER 1 100ML.BAG IVPB SCH ×2 (08:57→09:58)
[2018-12-17] MEDS: LISINOPRIL 5 MG TAB PO SCH ×2 (08:57→20:00)
[2018-12-17] MEDS: ASPIRIN 81 MG PO SCH (09:01)
[2018-12-17] MEDS: LACOSAMIDE 50 MG TABLET PO SCH ×2 (09:15→20:25)
--- NOTE | 2018-12-17 09:40 | PN ---
PROGRESS NOTE Mr. Osullivan is a 68-year-old male who presented with alcohol intoxication and had a fall and had been complaining of generalized discomfort. He is more awake, but continues to be confused at times. He has generalized discomfort in the chest, head and the lower extremities. He denies any dizziness or palpitation. He is in sinus mechanism. Hemodynamically, he is stable. There is a reported history of myocardial infarction in the past, although no documentation of the anatomy is available to me. He had an echocardiogram done yesterday revealed ejection fraction 45% to 50%. with basal inferolateral wall hypokinesis with mild mitral and tricuspid regurgitation. He continues to be at this time on aspirin once a day, Plavix 80 mg daily, clonidine 0.1 mg 3 times a day, lisinopril 5 mg daily, metoprolol tartrate 25 mg twice a day. PHYSICAL EXAMINATION: Blood pressure running in the 120s to 140s with a heart rate in the 70s. LUNGS: Clear. HEART: Regular rate and rhythm S1, S2. No S3. No rub. ABDOMEN: Soft, nontender. EXTREMITIES: No edema. LAB DATA: Revealed BUN and creatinine of 9 and 0.3. His sodium is 130, potassium 3.6, hemoglobin 12.2. IMPRESSION: 1. Chest discomfort, atypical for ischemic heart disease. 2. 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 3. Chronic alcohol use. 4. Chronic tobacco use. RECOMMENDATIONS: From the cardiac standpoint, I will decrease the dose of the clonidine, increase the dose of his SCOTT inhibitor and follow his renal function and increase his activity. From the cardiac standpoint, no further intervention is needed at this time. We will see him on as-needed basis. Please feel free to call us for any questions. MMODL / IJN: [id number] /
[2018-12-17] MEDS: MULTIVITAMINS, THERA 1 EACH TAB PO SCH (11:38)
[2018-12-17] MEDS: ACETAMINOPHEN TAB 325 MG TAB PO PRN (11:52)
--- NOTE | 2018-12-17 12:24 | P.PN ---
Subjective Progress Note Date: 12/17/18 Principal diagnosis: Chest pain and acute alcohol withdrawal This is a 68-year-old white male with history of multiple medical problems including alcoholism, history of pancreatitis, delirium tremens, primarily a patient of Dr. Singer. Patient presented to the ER mostly with symptoms of few hours history of chest pain, pain described as pressure over the right side of the chest, without any radiation, not associated with any diaphoresis. And not associated with palpitations or syncopal episodes. Initial workup including troponin, EKG, chest x-ray, were all normal. CT of the chest was also done, it showed mild COPD/emphysema, and calcified pleural plaques. There was no evidence of pulmonary embolism. Patient had no cough, no fever, no chills, no hemoptysis. Patient was admitted and apparently shortly after he was admitted he was showing signs of alcohol withdrawal, treated with Ativan, but apparently he required relatively high dose of Ativan to keep him calm, then arrangements were made to transfer the patient to the ICU. Patient was placed on the [facility] protocol. And I was asked to see him on consultation. Patient is lethargic, arousable, but does not seem to be interested in following any instructions, and request to be left alone. Patient was reevaluated today on 12/13/2018, feeling better, denies any agitation, has been coughing over the last 24 hours, requiring minimal sedation. Patient seems to be more arousable, denies being short of breath, denies any nausea vomiting or abdominal pain, and seems to be quite calm. His labs were reviewed including his CBC and basic metabolic profile, sodium is a bit on the low side otherwise the labs are unremarkable. Objective - Vital Signs Vital signs: Vital Signs Temp 97.1 F L 12/17/18 08:00 Pulse 56 L 12/17/18 12:00 Resp 11 L 12/17/18 12:00 BP 132/87 12/17/18 12:00 Pulse Ox 100 12/17/18 12:00 Intake & Output 12/16/18 12/17/18 12/17/18 18:59 06:59 18:59 Intake Total 1570 1500 935 Output Total 1265 965 795 Balance 305 535 140 Weight 88.451 kg 74.9 kg Intake: IV 600 120 60 .9 120 60 Sodium Chloride 0.9% 1, 600 000 ml @ 100 mls/hr IV . Q10H STA Rx#:[id number] Intake, IV Titration 450 900 575 Amount 0.9% NaCl with KCl 20 Meq 450 900 375 /l 1,000 ml @ 75 mls/hr IV .BY DURATION LAUREL Rx#: [id number] Magnesium Sulfate-D5w Pmx 200 1 gm In Dextrose/Water 1 100ml.bag @ 100 mls/hr IVPB Q1H LAUREL Rx#: [id number] Oral 520 480 300 Output: Urine 1265 965 795 Other: Voiding Method Indwelling Catheter Indwelling Catheter Indwelling Catheter # Voids 1 - Exam General appearance: Revealed a 68-year-old white male, awake, in no distress. Head exam: Atraumatic, normocephalic. Eye exam: PERRLA, EOMI, no icterus, ENT exam: Normal nasal mucosa, throat is clear, no evidence of nasal discharge. Neck exam: Supple, no neck masses, no JVD, no stridor. Respiratory exam: Symmetrical chest expansion, lungs are clear. No crackles or rhonchi or wheezes, diminished at the bases only. Cardiovascular Exam: Normal S1 and S2, no S3 gallop, no murmur. GI/Abdominal exam: Soft nontender no megaly no rebound no guarding. Extremities exam: No clubbing edema or cyanosis. Neurological exam: Alert oriented 3, no gross focal deficits. Psychiatric exam: Blunted mood and affect, cannot assess mental status, patient is lethargic. Skin exam: No rashes, good skin turgor, Lymphatics: No lymphadenopathy. - Labs CBC & Chem 7: 12/17/18 05:28 12/17/18 05:28 Labs: Abnormal Lab Results - Last 24 Hours (Table) 12/17/18 12/17/18 Range/Units 05:28 05:28 WBC 11.6 H (3.8-10.6) k/uL RBC 3.86 L (4.30-5.90) m/uL Hgb 12.2 L (13.0-17.5) gm/dL Hct 37.8 L (39.0-53.0) % Neutrophils # 8.7 H (1.3-7.7) k/uL Monocytes # 1.3 H (0-1.0) k/uL Sodium 130 L (137-145) mmol/L Chloride 95 L (98-107) mmol/L Creatinine 0.35 L (0.66-1.25) mg/dL Calcium 8.3 L (8.4-10.2) mg/dL Microbiology - Last 24 Hours (Table) 12/16/18 01:31 Blood Culture - Preliminary Blood No Growth after 24 hours Assessment and Plan Assessment: Impression: 1 atypical chest pain, resolved. 2 history of alcoholism 3 acute alcohol withdrawal 4 history of nicotine dependence syndrome 5 history of seizure disorder 6 history of pancreatitis 7 history of perianal abscess 8 history of myocardial infarction and underlying coronary artery disease Recommendation: Continue present supportive care measures, plan to transfer the patient out of the ICU, continue the CIWA protocol, and possibly consider discharge planning in the next 24 hours assuming he is cleared by cardiology. His dose of clonidine was decreased, and his SCOTT inhibitor dose was increased. Patient needs to have increase activity, and will follow on when necessary bas is. Time with Patient: Less than 30
--- NOTE | 2018-12-17 21:34 | PN ---
PROGRESS NOTE DATE OF SERVICE: 12/17/2018 This 68-year-old gentleman admitted with chest pain also had significant acute delirium tremens. Patient also had change in mental status. Patient is on Ativan protocol. Patient closely monitored in ICU. Cardiology and pulmonology evaluation progress. A 2D echo with Doppler was also done which showed patient also multiple CT scans showed no acute abnormality. A 2D echo with Doppler showed ejection fraction 45-50 percent with mild impairment. PAST MEDICAL HISTORY: Reviewed. REVIEW OF SYSTEMS: Could not be taken. The patient is stuporous at this time. CURRENT MEDICATIONS: Reviewed and include: 1. Tylenol 650 q.6h p.r.n. 2. Senath 5 mg q.6h. 3. Aspirin 81 mg. 4. Lipitor 80 mg daily. 5. Catapres 0.1 q.4 p.r.n. 6. Catapres b.i.d. 7. Dilaudid 0.5 mg q.4 p.r.n. 8. Vimpat 50 mg p.o. b.i.d. 9. Keppra 1000 mg p.o. b.i.d. 10.Zestril 5 mg p.o. b.i.d. 11.Ativan 1 mg with CIWA protocol. 12.Lopressor 25 mg p.o. b.i.d. 13.Replacement protocols. 14.Multivitamins 1 p.o. daily. 15.Narcan 0.2 q.2 p.r.n. 16.Protonix 40 mg p.o. daily. 17.Restoril. 18.Vitamin B1. PHYSICAL EXAM: Patient is alert, oriented x3. Pulse is 67, blood pressure 112/66, respiration 18, temperature 97.9, pulse ox 94% on room air. HEENT: Oral mucosa moist. NECK is no jugular venous distention. No carotid bruit. No lymph node enlargement. CARDIOVASCULAR: S1, S2 muffled. RESPIRATIONS: Breath sounds diminished in the bases. A few scattered rhonchi and crackles. ABDOMEN: Soft, nontender. LEGS no edema. No swelling. CENTRAL NERVOUS SYSTEM: Diffusely weak. LAB: Investigation at this time shows WBC 11.6, hemoglobin 12.2, sodium 130, potassium 3.6. ASSESSMENT: 1. Chest pain possible musculoskeletal chest pain, possible unstable angina, present on admission. 2. Acute delirium tremens. 3. Change in mental status with acute metabolic encephalopathy, possibly secondary to delirium tremens. 4. History of ETOH. 5. 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 6. History of ETOH. 7. Hypomagnesemia. 8. Hyponatremia. 9. History of myocardial infarction. 10.History of seizure disorder. 11.History of nicotine dependence. 12.History of pancreatitis. 13.History of pneumonia. 14.History of perianal abscess. 15.FULL CODE. RECOMMENDATIONS AND DISCUSSION: Recommend to continue current medications, continue with monitoring, symptomatic treatment. Continue with CIWA protocol. Continue the rest of medications. Closely follow with Cardiology and pulmonology. Prognosis guarded. Further recommendations to follow. Social Work and Case Management to follow regarding the alcohol cessation and rehab also. Further recommendations to follow. PATRICIA / ELDON: [id number] / MTDD
[2018-12-18] MEDS: HYDROcodone/APAP 5-325MG 1 EACH TAB PO PRN ×3 (02:07→20:03)
[2018-12-18 05:03] LABS: Basophils % (A) 0 %; Eosinophils # (A) 0.2 k/uL (0-0.7); Eosinophils % (A) 2 %; HCT 35.8 % (39.0-53.0); HGB 11.5 gm/dL (13.0-17.5); Lymphocytes % (A) 13 %; MCH 31.2 pg (25.0-35.0); MCHC 32.3 g/dL (31.0-37.0); MCV 96.7 fL (80.0-100.0); Mean Platelet Volume 7.5; Monocytes # (A) 0.8 k/uL (0-1.0); Monocytes % (A) 10 %; Neutrophils # (A) 5.6 k/uL (1.3-7.7); Neutrophils % (A) 71 %; Platelet Count 214 k/uL (150-450); RDW 13.2 % (11.5-15.5); WBC 7.9 k/uL (3.8-10.6)
[2018-12-18 05:28] LABS: African American GFR (CKD) >90 (>60 ml/min/1.73 sqM); Anion Gap 6 mmol/L; Blood Urea Nitrogen 13 mg/dL (9-20); Calcium 8.8 mg/dL (8.4-10.2); Carbon Dioxide 28 mmol/L (22-30); Chloride 100 mmol/L (98-107); Glucose 94 mg/dL (74-99); Magnesium 1.8 mg/dL (1.6-2.3); Potassium 3.9 mmol/L (3.5-5.1); Sodium 134 mmol/L (137-145)
[2018-12-18] MEDS: THIAMINE 100 MG TAB PO SCH ×2 (06:32→17:30)
[2018-12-18] MEDS: cloNIDine HCL 0.1 MG TAB PO SCH ×2 (08:34→20:03)
[2018-12-18] MEDS: LISINOPRIL 5 MG TAB PO SCH ×2 (08:34→20:03)
[2018-12-18] MEDS: PANTOPRAZOLE 40 MG TABLET PO SCH (08:34)
[2018-12-18] MEDS: METOPROLOL TARTRATE 25 MG TAB PO SCH ×2 (08:34→20:04)
[2018-12-18] MEDS: levETIRAcetam 500 MG TAB PO SCH ×2 (08:34→20:04)
[2018-12-18] MEDS: ASPIRIN 81 MG PO SCH (08:34)
[2018-12-18] MEDS: MAGNESIUM OXIDE 400 MG TAB PO SCH ×3 (08:34→20:04)
[2018-12-18] MEDS: ATORVASTATIN 80 MG TAB PO SCH (08:34)
[2018-12-18] MEDS: LACOSAMIDE 50 MG TABLET PO SCH ×2 (08:40→20:04)
[2018-12-18] MEDS: MULTIVITAMINS, THERA 1 EACH TAB PO SCH (11:30)
--- NOTE | 2018-12-18 15:29 | P.CN ---
Psychiatric Consult - . Consult date: 12/18/18 Consult:: 12/18/18 15:17 IDENTIFYING DATA: This patient is a patient is a 68-year-old male who lives with his girlfriend and apartment with 2 kids and collects Social Security. HISTORY OF PRESENT ILLNESS: The patient was brought into the hospital after experiencing chest pain and during workup to rule out an DC, patient went into alcohol withdrawal and needed admission to the ICU. As per EMR patient has a long history of chronic alcohol use resulting in history of pancreatitis and DTs. Psychiatry was referred for depression and alcohol use. Patient was seen at the bedside and was agreeable to speak to comic writer. Patient appeared calm however was somewhat guarded and superficial, often minimizing his condition. Patient states that he had suffered a fall earlier and hit his head in the shower. Patient claims that his alcohol use has been a problem since his 20s. He claims that he drinks approximately 5 beers a day and states that his last drink was 1 week ago. Patient claims that he does have tremors when he stops drinking alcohol however denies seizures or confusion or palpitations. He states that he has had 5 DUIs in the past the most recent one being in 1999. Patient claims that his mood is "alright" and denies any depressive symptoms at this time. He denies any anxiety or any manic symptoms. Patient claims that his sleep has been good and his appetite good along with fair energy. At this time patient denies any suicidal or homical ideations, intent or plan. Patient denies any auditory, visual hallucinations and denies any paranoia or delusions. Patient denies using any other recreational substances. PAST PSYCHIATRIC HISTORY: Patient's distant denies any psychiatric outpatient follow-up. He denies being put on any psychiatric medications. Patient was previously admitted to the mental health unit on 04/2015 for depressive symptoms however was not placed on psychotropic medications. He also denies any previous history of suicide attempts.. PAST MEDICAL HISTORY: Chronic alcohol use history of pancreatitis, DTs and seizures. ALLERGIES: No known drug allergies. CHEMICAL DEPENDENCY HISTORY: As per HPI. FAMILY PSYCHIATRIC HISTORY: denies. 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 He states that he lives with his girlfriend and apartment has 2 kids which she has good contact with and collects Social Security.. MENTAL STATUS EXAM: General Appearance: Patient appears to be stated age is alert, cooperative however is superficial and guarded at times. Patient has poor hygiene and poor grooming and a long james. Behavior: Patient is calmly lying in bed without any agitated behavior. Patient was noted to be trembling at times in his hands. Speech: Patient's speech is fluent and nonpressured. Mood/Affect: Patient reports their mood is "ok", affect is congruent Suicidality/Homicidality: Patient denies having any suicidal or homicidal ideation intent or plan. Perceptions: Patient denies any auditory or visual hallucinations. Though content/process: There is no evidence of any delusional thought content and thought process is linear and goal-directed. Memory and concentration: AOX3, grossly intact for the purposes of this session. Can spell "WORLD" backwards Judgment and insight: Poor, superficial IMPRESSIONS: Alcohol use disorder, moderate-severe currently in withdrawal Depressive disorder unspecified PLAN: -At this time patient patient does NOT meet criteria for inpatient psychiatric admission. -Would recommend the following medication changes/additions: After discussing with patient the options for medication/treatment for alcohol use, patient decided on acamprosate. Will start dose at 333 mg 3 times a day and increase to 666 mg 3 times a day which is therapeutic dose for maintenance. -Continue with CIWA and alcohol withdrawal protocol as per primary team. -Thiamine, folate and multivitamin for supplementation. -Patient was also superficial however did agree to want to go to rehab inpatient and was agreeable to do the phone intake. flying squad worker to assist patient with getting connected to rehab once medically stable for his substance use. -Okay to discontinue 1:1 sitter at this time as patient is not an acute/imminent threat to himself. -Psychiatry will sign off at this point Thank you for the consult 12/18/18 15:26
[2018-12-18] MEDS: ACAMPROSATE CALCIUM 333 MG TABLET.DR PO SCH ×2 (16:00→21:09)
--- NOTE | 2018-12-18 20:06 | PN ---
PROGRESS NOTE DATE OF SERVICE: 12/18/2018 This 68 -year-old gentleman admitted with chest pain also had significant DTs. The patient had change in mental status. Patient was transferred to ICU. Patient has CIWA protocol at this time. The p.o. intake appears to be poor at this time. Patient is followed by multiple consultants. A 2D echo with Doppler showed ejection fraction 40- 45 percent with basal inferolateral hypokinesis also. The patient also depressed. PAST MEDICAL HISTORY: Reviewed. REVIEW OF SYSTEM: Could not be taken, the patient is confused. CURRENT MEDICATIONS: Are reviewed and include: 1. Campral 333 mg p.o. t.i.d. 2. Campral 666 mg p.o. t.i.d. 3. Tylenol 650 q.6h p.r.n. 4. [place] 5 mg q.6h. 5. Aspirin 81 mg daily. 6. Lipitor 80 mg. 7. Catapres 0.1 q.4h. 8. Catapres 0.1 p.o. b.i.d. 9. Dilaudid 0.5 mg q.6 p.r.n. 10.Vimpat 50 mg p.o. b.i.d. 11.Keppra 1000 mg p.o. b.i.d. 12.Zestril 5 mg p.o. b.i.d. 13.Ativan p.r.n. 14.Magnesium oxide 400 mg t.i.d. 15.Lopressor 25 mg p.o. b.i.d. 16.Replacement protocols. 17.Narcan. 18.Nitro-Bid. 19.Nitrostat p.r.n. 20.Protonix 40 mg p.o. daily. 21.Banana bag and multivitamin supplements. 22.Vitamin B1. PHYSICAL EXAM: Patient is alert, oriented x3. Pulse is 58. Blood pressure 130/85, respirations 12, temperature 97.9, pulse ox 98% on room air. HEENT: Conjunctivae normal. Oral mucosa moist. NECK is no jugular venous distention. No carotid bruit. No lymph node enlargement. CARDIOVASCULAR: S1, S2. No S3. RESPIRATORY: Breath sounds diminished in the bases. Bilateral scattered rhonchi and crackles. ABDOMEN: Soft, nontender. LEGS: No edema. No swelling. CENTRAL NERVOUS SYSTEM: Diffusely weak and tremors. Gait dysfunction and instability also present. LAB INVESTIGATIONS: WBC 7.9, hemoglobin 11.5, sodium 134. Other labs are noted. Chest x-ray which was personally reviewed by me showed chronic changes without any acute changes. ASSESSMENT: 1. Chest pain possible musculoskeletal chest pain, possible unstable angina, present on admission. 2. Acute delirium tremens. 3. Change in mental status, acute metabolic encephalopathy, possibly secondary to delirium tremens. 4. History of ETOH. 5. Severe depression. 6. 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 7. History of ETOH. 8. Hypomagnesemia. 9. Hyponatremia. 10.History of myocardial infarction. 11.History of seizure disorder. 12.History of nicotine dependence. 13.History of pancreatitis. 14.History of pneumonia. 15.History of perianal abscess. 16.FULL CODE. RECOMMENDATIONS AND DISCUSSION: Recommend to continue current medications, continue with monitoring, management and symptomatic treatment. Continue with beta blockers and SCOTT inhibitors. Otherwise, continue to monitor. Monitor blood pressure closely. DT precautions. Psychiatric consultation for depression. Psychiatrist recommended a Acamprosate. Otherwise, prognosis guarded because of multiple complex medical issues. Further recommendations to follow. MMODL / IJN: [id number] /
[2018-12-19 05:35] LABS: Basophils % (A) 0 %; Eosinophils # (A) 0.2 k/uL (0-0.7); Eosinophils % (A) 3 %; HGB 11.2 gm/dL (13.0-17.5); Lymphocytes % (A) 15 %; MCH 32.4 pg (25.0-35.0); MCV 98.2 fL (80.0-100.0); Mean Platelet Volume 7.5; Monocytes # (A) 0.7 k/uL (0-1.0); Monocytes % (A) 12 %; Neutrophils # (A) 4.1 k/uL (1.3-7.7); Neutrophils % (A) 66 %; Platelet Count 237 k/uL (150-450); RBC 3.47 m/uL (4.30-5.90); RDW 13.2 % (11.5-15.5); WBC 6.2 k/uL (3.8-10.6)
[2018-12-19 05:56] LABS: African American GFR (CKD) >90 (>60 ml/min/1.73 sqM); Anion Gap 7 mmol/L; Blood Urea Nitrogen 11 mg/dL (9-20); Calcium 9.1 mg/dL (8.4-10.2); Carbon Dioxide 30 mmol/L (22-30); Chloride 100 mmol/L (98-107); Glucose 88 mg/dL (74-99); Sodium 137 mmol/L (137-145)
[2018-12-19 07:27] VITALS: RESP 16
[2018-12-19] MEDS: MAGNESIUM OXIDE 400 MG TAB PO SCH ×2 (08:30→16:51)
[2018-12-19] MEDS: LISINOPRIL 5 MG TAB PO SCH (08:30)
[2018-12-19] MEDS: cloNIDine HCL 0.1 MG TAB PO SCH (08:30)
[2018-12-19] MEDS: THIAMINE 100 MG TAB PO SCH (08:30)
[2018-12-19] MEDS: PANTOPRAZOLE 40 MG TABLET PO SCH (08:30)
[2018-12-19] MEDS: MULTIVITAMINS, THERA 1 EACH TAB PO SCH (08:30)
[2018-12-19] MEDS: METOPROLOL TARTRATE 25 MG TAB PO SCH (08:30)
[2018-12-19] MEDS: ATORVASTATIN 80 MG TAB PO SCH (08:30)
[2018-12-19] MEDS: ASPIRIN 81 MG PO SCH (08:30)
[2018-12-19] MEDS: ACAMPROSATE CALCIUM 333 MG TABLET.DR PO SCH ×2 (08:30→16:51)
[2018-12-19] MEDS: LACOSAMIDE 50 MG TABLET PO SCH (08:31)
[2018-12-19] MEDS: levETIRAcetam 500 MG TAB PO SCH (08:31)
[2018-12-19] MEDS: HYDROcodone/APAP 5-325MG 1 EACH TAB PO PRN (08:38)
[2018-12-19 14:46] VITALS: BP 152/99; PULSE 59; TEMP 97.5
--- NOTE | 2018-12-19 23:44 | DS ---
DISCHARGE SUMMARY DATE OF SERVICE: 12/19/2018. FINAL DIAGNOSIS: 1. Chest pain possibly musculoskeletal chest pain, possibly unstable angina present on admission improved. 2. Acute delirium tremens. 3. Change in mental status acute metabolic encephalopathy secondary to delirium tremens. 4. History of ETOH. 5. Severe depression. 6. 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 7. History of ETOH. 8. Hypomagnesemia. 9. Hyponatremia. 10.History of myocardial infarction. 11.History of seizure disorder. 12.History of nicotine dependence. 13.History of pancreatitis. 14.History of pneumonia. 15.History of perianal abscess. 16.FULL CODE. DISCHARGE DISPOSITION: The patient being discharged in stable condition with guarded prognosis. Total time taken 35 minutes. HISTORY OF PRESENT ILLNESS: This 68-year-old gentleman with a past medical history of multiple medical problems as mentioned, was admitted with acute DTs and chest pain. Patient is followed by Dr. Singer in the outpatient setting. The patient also has history of significant EtOH also. Patient treated symptomatically. Patient monitored in ICU. Cardiology saw the patient and recommend outpatient followup. Otherwise patient improved significantly. On exam, vitals are stable. Cardio system: S1, S2 muffled. Respiration: A few scattered rhonchi. ABDOMEN: Soft. Nontender. NERVOUS SYSTEM: No focal deficits. The patient being discharged in stable condition with guarded prognosis with the following advised and medications: 1. Diet is cardiac diet. 2. Follow up with Dr. Singer in 2-3 days. 3. Follow up with Cardiology as recommended. DISCHARGE MEDICATION: 1. Keppra 1000 mg p.o. b.i.d. 2. Lipitor 20 mg q.h.s. 3. Protonix 40 mg p.o. daily. 4. Vimpat 50 mg p.o. b.i.d. 5. Ativan 0.25 mg p.o. daily p.r.n. 6. Campral 333 mg p.o. t.i.d. 7. Ecotrin 81 mg p.o. daily. 8. Folic acid 1 mg p.o. daily. 9. Lipitor 80 mg p.o. daily. 10.Lopressor 25 mg p.o. b.i.d. 11.Multivitamins 1 p.o. daily. 12.Tylenol 500 mg q.6h p.r.n. 13.Thiamine 100 mg p.o. daily. 14.Zestril 5 mg p.o. b.i.d. Campral was initiated by Psychiatry. I would also recommend close followup in the outpatient setting with alcohol rehab and AA meetings. PATRICIA / ELDON: [id number] /
[2018-12-20] MEDS ORDERED: ACAMPROSATE CALCIUM 333 MG TABLET.DR PO SCH (09:00)
== END 2018-12-19 16:44 | disposition home or self-care (01) | DRG 302 ==
LOC: EC 14:20 → 1SOBS 18:30 → OBSVTOIN 23:36 → 2SICU 12-16 00:20 → 4SSUR 12-19 06:52
PROVIDERS: ADMIT Hospitalist; ATTEND Hospitalist
DX: I25.110 Atherosclerotic heart disease of native coronary artery with unstable angina pectoris (principal); G93.41 Metabolic encephalopathy; E87.1 Hypo-osmolality and hyponatremia; F10.231 Alcohol dependence with withdrawal delirium; I50.22 Chronic systolic (congestive) heart failure; F17.210 Nicotine dependence, cigarettes, uncomplicated; E78.5 Hyperlipidemia, unspecified; E83.42 Hypomagnesemia; F32.9 Major depressive disorder, single episode, unspecified; G40.909 Epilepsy, unspecified, not intractable, without status epilepticus; I08.1 Rheumatic disorders of both mitral and tricuspid valves; I11.0 Hypertensive heart disease with heart failure; I25.2 Old myocardial infarction; I25.5 Ischemic cardiomyopathy; I42.6 Alcoholic cardiomyopathy; Z86.73 Personal history of transient ischemic attack (TIA), and cerebral infarction without residual deficits; Z87.01 Personal history of pneumonia (recurrent); J43.9 Emphysema, unspecified; W01.0XXA Fall on same level from slipping, tripping and stumbling without subsequent striking against object, initial encounter; M25.519 Pain in unspecified shoulder; M54.9 Dorsalgia, unspecified; Z79.02 Long term (current) use of antithrombotics/antiplatelets; Z79.82 Long term (current) use of aspirin; Z79.899 Other long term (current) drug therapy; Z81.1 Family history of alcohol abuse and dependence; Z83.3 Family history of diabetes mellitus
CPT/HCPCS: 36415; 70450; 71045; 71046; 71260; 72125; 80048; 80053; 80061; 80320; 81001; 83690; 83735; 83880; 84100; 84132; 84484; 85025; 85610; 85730; 87040; 93005; 93306; 96361; 96372; 96374; 96375; 96376; 99285

== ENCOUNTER 2019-02-22 17:40 | Emergency (ER) | payer MEDICARE ==
[2019-02-22] MEDS ORDERED: SODIUM CHLORIDE 0.9% 1,000 ML IV STA (17:46)
--- NOTE | 2019-02-22 18:19 | ED ---
Seizure HPI - General Chief Complaint: Seizure Stated Complaint: Seizure Time Seen by Provider: 02/22/19 17:46 Source: patient, EMS, RN notes reviewed Mode of arrival: EMS Limitations: no limitations - History of Present Illness Initial Comments: 68-year-old male presents emergency department via EMS for generalized seizure. Patient has a history of seizures is on multiple medications. Patient states that he ran out a few days ago but did refills medications today and took his normal doses. Patient had a 30 second long seizure witnessed by family. Patient denies any known injury no head injury patient was sitting on the couch when this happened. Patient denies any tongue laceration. - Related Data Home Medications Medication Instructions Recorded Confirmed Lacosamide [Vimpat] 50 mg PO BID 10/26/18 02/22/19 levETIRAcetam [Keppra] 1,000 mg PO Q12HR 12/15/18 02/22/19 Allergies Allergy/AdvReac Type Severity Reaction Status Date / Time No Known Allergies Allergy Verified 02/22/19 18:13 Review of Systems ROS Statement: Those systems with pertinent positive or pertinent negative responses have been documented in the HPI. ROS Other: All systems not noted in ROS Statement are negative. Past Medical History Past Medical History: Myocardial Infarction (ND), Seizure Disorder Additional Past Medical History / Comment(s): ETOH abuse with past withdrawal DTs and seizures, R foot fracture 1 year ago-not healing properly, [facility] Dr. Singer office visit note, pt recently seen 07/12/17 with perianal abscess. Last Myocardial Infarction Date:: 10/2018 History of Any Multi-Drug Resistant Organisms: None Reported Past Surgical History: No Surgical Hx Reported, Unable to Obtain Additional Past Surgical History / Comment(s): Pt states he has never had surgery but his son, Alexandre believes he has recently had a colonoscopy. Past Anesthesia/Blood Transfusion Reactions: No Reported Reaction Additional Past Anesthesia/Blood Transfusion Reaction / Comment(s): "never received any blood transfusion" Past Psychological History: No Psychological Hx Reported Smoking Status: Current every day smoker Past Alcohol Use History: Daily Past Drug Use History: None Reported - Past Family History Father History Unknown: Yes Family Medical History: Diabetes Mellitus Additional Family Medical History / Comment(s): Father was an alcoholic. Mother History Unknown: Yes Family Medical History: Diabetes Mellitus General Exam Limitations: no limitations General appearance: alert, in no apparent distress Head exam: Present: atraumatic, normocephalic, normal inspection Eye exam: Present: normal appearance, PERRL, EOMI. Absent: scleral icterus, conjunctival injection, periorbital swelling ENT exam: Present: normal exam, normal oropharynx, mucous membranes moist Neck exam: Present: normal inspection, full ROM. Absent: tenderness, meningismus, lymphadenopathy Respiratory exam: Present: normal lung sounds bilaterally. Absent: respiratory distress, wheezes, rales, rhonchi, stridor Cardiovascular Exam: Present: regular rate, normal rhythm, normal heart sounds. Absent: systolic murmur, diastolic murmur, rubs, gallop, clicks GI/Abdominal exam: Present: soft, normal bowel sounds. Absent: distended, tenderness, guarding, rebound, rigid Back exam: Absent: CVA tenderness (R), CVA tenderness (L) Neurological exam: Present: alert Skin exam: Present: warm, dry, intact, normal color. Absent: rash Course Vital Signs 02/22/19 02/22/19 17:42 19:55 Temperature 99.4 F Pulse Rate 89 64 Respiratory 16 18 Rate Blood Pressure 134/95 148/95 O2 Sat by Pulse 95 97 Oximetry Medical Decision Making - Medical Decision Making Patient presented for recurrent seizures. Patient labs unremarkable. Patient states he refill his medications today and will be instructed continues medications. Return parameters were discussed. - Lab Data Result diagrams: 02/22/19 18:35 02/22/19 18:50 Lab Results 02/22/19 02/22/19 02/22/19 Range/Units 18:35 18:50 19:00 WBC 8.3 (3.8-10.6) k/uL RBC 4.13 L (4.30-5.90) m/uL Hgb 13.4 (13.0-17.5) gm/dL Hct 40.3 (39.0-53.0) % MCV 97.5 (80.0-100.0) fL MCH 32.4 (25.0-35.0) pg MCHC 33.2 (31.0-37.0) g/dL RDW 14.0 (11.5-15.5) % Plt Count 241 (150-450) k/uL Neutrophils % 86 % Lymphocytes % 9 % Monocytes % 4 % Eosinophils % 0 % Basophils % 1 % Neutrophils # 7.2 (1.3-7.7) k/uL Lymphocytes # 0.7 L (1.0-4.8) k/uL Monocytes # 0.3 (0-1.0) k/uL Eosinophils # 0.0 (0-0.7) k/uL Basophils # 0.1 (0-0.2) k/uL Sodium 137 (137-145) mmol/L Potassium 4.4 (3.5-5.1) mmol/L Chloride 103 (98-107) mmol/L Carbon Dioxide 27 (22-30) mmol/L Anion Gap 7 mmol/L BUN 10 (9-20) mg/dL Creatinine 0.60 L (0.66-1.25) mg/dL Est GFR (CKD-EPI)AfAm >90 (>60 ml/min/1.73 sqM) Est GFR (CKD-EPI)NonAf >90 (>60 ml/min/1.73 sqM) Glucose 117 H (74-99) mg/dL Calcium 8.9 (8.4-10.2) mg/dL Total Bilirubin 0.8 (0.2-1.3) mg/dL AST 30 (17-59) U/L ALT 20 L (21-72) U/L Alkaline Phosphatase 41 (38-126) U/L Total Protein 7.2 (6.3-8.2) g/dL Albumin 4.1 (3.5-5.0) g/dL Urine Color Yellow Urine Appearance Clear (Clear) Urine pH 6.5 (5.0-8.0) Ur Specific [place] 1.017 (1.001-1.035) Urine Protein 2+ H (Negative) Urine Glucose (UA) Negative (Negative) Urine Ketones 1+ H (Negative) Urine Blood Small H (Negative) Urine Nitrite Negative (Negative) Urine Bilirubin Negative (Negative) Urine Urobilinogen 2.0 (<2.0) mg/dL Ur Leukocyte Esterase Negative (Negative) Urine RBC 2 (0-5) /hpf Urine WBC 1 (0-5) /hpf Ur Squamous Epith Cells <1 (0-4) /hpf Hyaline Casts 8 H (0-2) /lpf Urine Mucus Rare H (None) /hpf Disposition Clinical Impression: Seizure Disposition: HOME SELF-CARE Condition: Stable Instructions (If sedation given, give patient instructions): Recurrent Seizures in Adults (ED) Additional Instructions: Please return to the Emergency Department if symptoms worsen or any other concerns. Is patient prescribed a controlled substance at d/c from ED?: No Referrals: Thony Singer MD [Primary Care Provider] - 1-2 days Time of Disposition: 20:15
[2019-02-22 18:55] LABS: Basophils # (A) 0.1 k/uL (0-0.2); Basophils % (A) 1 %; Eosinophils % (A) 0 %; HCT 40.3 % (39.0-53.0); HGB 13.4 gm/dL (13.0-17.5); Lymphocytes # (A) 0.7 k/uL (1.0-4.8); Lymphocytes % (A) 9 %; MCH 32.4 pg (25.0-35.0); MCHC 33.2 g/dL (31.0-37.0); MCV 97.5 fL (80.0-100.0); Mean Platelet Volume 8.7; Monocytes # (A) 0.3 k/uL (0-1.0); Monocytes % (A) 4 %; Neutrophils # (A) 7.2 k/uL (1.3-7.7); Neutrophils % (A) 86 %; Platelet Count 241 k/uL (150-450); RBC 4.13 m/uL (4.30-5.90); WBC 8.3 k/uL (3.8-10.6)
[2019-02-22 19:19] LABS: Appearance,Urine Clear (Clear); Bilirubin,Urine Negative (Negative); Blood,Urine Small (Negative); Color,Urine Yellow; Glucose,Urine (UA) Negative (Negative); Hyaline Casts,Urine 8 /lpf (0-2); Ketones,Urine 1+ (Negative); Leukocyte Esterase,Urine Negative (Negative); Mucus,Urine Rare /hpf; Nitrite,Urine Negative (Negative); PH, Urine 6.5 (5.0-8.0); Protein,Urine 2+ (Negative); RBC,Urine 2 /hpf (0-5); Specific Gravity,Urine 1.017 (1.001-1.035); Squamous Epithelial Cell,Urine <1 /hpf (0-4); WBC,Urine 1 /hpf (0-5)
[2019-02-22 19:58] VITALS: RESP 18
[2019-02-22 20:05] LABS: ALT 20 U/L (21-72); AST 30 U/L (17-59); African American GFR (CKD) >90 (>60 ml/min/1.73 sqM); Albumin 4.1 g/dL (3.5-5.0); Alkaline Phosphatase 41 U/L (38-126); Anion Gap 7 mmol/L; Blood Urea Nitrogen 10 mg/dL (9-20); Calcium 8.9 mg/dL (8.4-10.2); Carbon Dioxide 27 mmol/L (22-30); Chloride 103 mmol/L (98-107); Glucose 117 mg/dL (74-99); Non-African American GFR(CKD) >90 (>60 ml/min/1.73 sqM); Potassium 4.4 mmol/L (3.5-5.1); Sodium 137 mmol/L (137-145); Total Bilirubin 0.8 mg/dL (0.2-1.3); Total Protein 7.2 g/dL (6.3-8.2)
[2019-02-22 20:44] VITALS: BP 141/92; PULSE 72; TEMP 98
== END 2019-02-22 20:54 | disposition home or self-care (01) ==
LOC: EC 17:40
DX: G40.909 Epilepsy, unspecified, not intractable, without status epilepticus (principal); F17.200 Nicotine dependence, unspecified, uncomplicated; Z79.899 Other long term (current) drug therapy
CPT/HCPCS: 36415; 80053; 81001; 85025; 93005; 96360; 96361; 99284

== ENCOUNTER 2019-05-06 18:45 | Inpatient (IN) | payer MEDICARE ==
[2019-05-06] MEDS ORDERED: levETIRAcetam IV 500 MG in SODIUM CHLORIDE 0.9% 100 ML IVPB STA ×2 (18:59→19:18)
[2019-05-06] MEDS ORDERED: SODIUM CHLORIDE 0.9% 1,000 ML with MVI, ADULT NO.4 WITH VIT K 10 ML, THIAMINE 100 MG, F... IV ONE ×4 (19:21)
[2019-05-06 19:23] LABS: Basophils % (A) 1 %; Eosinophils # (A) 0.1 k/uL (0-0.7); Eosinophils % (A) 2 %; HCT 43.6 % (39.0-53.0); HGB 14.5 gm/dL (13.0-17.5); Lymphocytes # (A) 1.5 k/uL (1.0-4.8); Lymphocytes % (A) 20 %; MCHC 33.3 g/dL (31.0-37.0); MCV 99.2 fL (80.0-100.0); Monocytes # (A) 0.5 k/uL (0-1.0); Monocytes % (A) 7 %; Neutrophils # (A) 5.2 k/uL (1.3-7.7); Neutrophils % (A) 68 %; Platelet Count 223 k/uL (150-450); RDW 12.7 % (11.5-15.5); WBC 7.7 k/uL (3.8-10.6)
--- NOTE | 2019-05-06 19:25 | ED ---
Seizure HPI - General Chief Complaint: Seizure Stated Complaint: Seizure Time Seen by Provider: 05/06/19 18:45 Source: EMS, RN notes reviewed, old records reviewed Mode of arrival: EMS Limitations: altered mental status - History of Present Illness Initial Comments: This is a 68-year-old male with a history of alcohol abuse tobacco abuse depression and alcohol withdrawal seizures who is brought in by EMS because of seizure today. Initially had what appeared to be a seizure and then had left lateral gaze and lack of use of his left upper extremity and route to. Upon arrival here the exam seemed to normalize. Patient himself is a poor historian at this time. No trauma reported no incontinence reported at this time. MD Complaint: seizure - Related Data Home Medications Medication Instructions Recorded Confirmed Lacosamide [Vimpat] 50 mg PO BID 10/26/18 02/22/19 levETIRAcetam [Keppra] 1,000 mg PO Q12HR 12/15/18 02/22/19 Allergies Allergy/AdvReac Type Severity Reaction Status Date / Time No Known Allergies Allergy Verified 02/22/19 18:13 Review of Systems ROS Statement: Those systems with pertinent positive or pertinent negative responses have been documented in the HPI. ROS Other: All systems not noted in ROS Statement are negative. Limitations: ROS unobtainable due to patients medical condition Past Medical History Past Medical History: Myocardial Infarction ([place]), Seizure Disorder Additional Past Medical History / Comment(s): ETOH abuse with past withdrawal DTs and seizures, R foot fracture 1 year ago-not healing properly, [employer] [facility] Dr. Singer office visit note, pt recently seen 07/12/17 with perianal abscess. Last Myocardial Infarction Date:: 10/2018 History of Any Multi-Drug Resistant Organisms: None Reported Past Surgical History: No Surgical Hx Reported, Unable to Obtain Additional Past Surgical History / Comment(s): Pt states he has never had surgery but his son, Alexandre believes he has recently had a colonoscopy. Past Anesthesia/Blood Transfusion Reactions: No Reported Reaction Additional Past Anesthesia/Blood Transfusion Reaction / Comment(s): "never received any blood transfusion" Past Psychological History: No Psychological Hx Reported Smoking Status: Current every day smoker Past Alcohol Use History: Daily, Occasional Past Drug Use History: None Reported - Past Family History Father History Unknown: Yes Family Medical History: Diabetes Mellitus Additional Family Medical History / Comment(s): Father was an alcoholic. Mother History Unknown: Yes Family Medical History: Diabetes Mellitus General Exam - General Exam Comments Initial Comments: This is a well-developed sec appearing male who was at at this time is a poor historian but able to respond Limitations: altered mental status General appearance: alert, in no apparent distress Head exam: Present: atraumatic, normocephalic, normal inspection Eye exam: Present: normal appearance, PERRL, EOMI. Absent: scleral icterus, conjunctival injection, periorbital swelling ENT exam: Present: mucous membranes moist, other (The patient is edentulous) Neck exam: Present: normal inspection. Absent: tenderness, meningismus, lymphadenopathy Respiratory exam: Present: normal lung sounds bilaterally. Absent: respiratory distress, wheezes, rales, rhonchi, stridor Cardiovascular Exam: Present: regular rate, normal rhythm, normal heart sounds. Absent: systolic murmur, diastolic murmur, rubs, gallop, clicks GI/Abdominal exam: Present: soft, normal bowel sounds. Absent: distended, tenderness, guarding, rebound, rigid Extremities exam: Present: normal inspection, full ROM, normal capillary refill. Absent: tenderness, pedal edema, joint swelling, calf tenderness Back exam: Present: normal inspection Neurological exam: Present: alert, altered, CN II-XII intact, other (Patient does appear to be postictal) Psychiatric exam: Present: normal affect, normal mood Skin exam: Present: warm, dry, intact, normal color. Absent: rash Course Vital Signs 05/06/19 05/06/19 05/06/19 18:48 19:20 19:31 Temperature 98.4 F 99.0 F 99.0 F Pulse Rate 96 103 H 98 Respiratory 18 17 18 Rate Blood Pressure 145/91 177/92 158/97 O2 Sat by Pulse 95 92 L 98 Oximetry 05/06/19 20:01 Temperature 98.5 F Pulse Rate 92 Respiratory 15 Rate Blood Pressure 126/98 O2 Sat by Pulse 96 Oximetry - Reevaluation(s) Reevaluation #1: 05/06/19 19:24 Patient did have an approximately 2-3 minute tonic-clonic seizure in the emergency department. He did notify nursing staff that he felt like he is been have another one. Reevaluation #2: 05/06/19 20:39 She did have a tonic-clonic seizure lasting between 2 and 3 minutes he did receive IV Ativan as well as IV Keppra no further seizures patient did have left upper lower extremity weakness that did resolve quickly. Medical Decision Making - Medical Decision Making Evaluation patient reveals him to be awake alert oriented times. Did discuss findings with him he will be admitted with neurological consultation in the morning he did receive IV Keppra IV Ativan he does admit to drinking 1 drink earlier today. In addition to the intractable seizure disorder he does have evidence of Frandy's paralysis which quickly resolves. - Lab Data Result diagrams: 05/06/19 18:50 05/06/19 18:50 Lab Results 05/06/19 05/06/19 05/06/19 Range/Units 18:50 18:50 18:50 WBC 7.7 (3.8-10.6) k/uL RBC 4.40 (4.30-5.90) m/uL Hgb 14.5 (13.0-17.5) gm/dL Hct 43.6 (39.0-53.0) % MCV 99.2 (80.0-100.0) fL MCH 33.0 (25.0-35.0) pg MCHC 33.3 (31.0-37.0) g/dL RDW 12.7 (11.5-15.5) % Plt Count 223 (150-450) k/uL Neutrophils % 68 % Lymphocytes % 20 % Monocytes % 7 % Eosinophils % 2 % Basophils % 1 % Neutrophils # 5.2 (1.3-7.7) k/uL Lymphocytes # 1.5 (1.0-4.8) k/uL Monocytes # 0.5 (0-1.0) k/uL Eosinophils # 0.1 (0-0.7) k/uL Basophils # 0.0 (0-0.2) k/uL PT 10.2 (9.0-12.0) sec INR 1.0 (<1.2) APTT 25.0 (22.0-30.0) sec Sodium 141 (137-145) mmol/L Potassium 3.8 (3.5-5.1) mmol/L Chloride 102 (98-107) mmol/L Carbon Dioxide 24 (22-30) mmol/L Anion Gap 15 mmol/L BUN 11 (9-20) mg/dL Creatinine 0.72 (0.66-1.25) mg/dL Est GFR (CKD-EPI)AfAm >90 (>60 ml/min/1.73 sqM) Est GFR (CKD-EPI)NonAf >90 (>60 ml/min/1.73 sqM) Glucose 118 H (74-99) mg/dL Calcium 9.5 (8.4-10.2) mg/dL Magnesium 1.7 (1.6-2.3) mg/dL Total Bilirubin 0.5 (0.2-1.3) mg/dL AST 33 (17-59) U/L ALT 17 (4-49) U/L Alkaline Phosphatase 57 (38-126) U/L Troponin I (0.000-0.034) ng/mL Total Protein 7.9 (6.3-8.2) g/dL Albumin 4.8 (3.5-5.0) g/dL Urine Opiates Screen (NotDetected) Ur Oxycodone Screen (NotDetected) Urine Methadone Screen (NotDetected) Ur Propoxyphene Screen (NotDetected) Ur Barbiturates Screen (NotDetected) U Tricyclic Antidepress (NotDetected) Ur Phencyclidine Scrn (NotDetected) Ur Amphetamines Screen (NotDetected) U Methamphetamines Scrn (NotDetected) U Benzodiazepines Scrn (NotDetected) Urine Cocaine Screen (NotDetected) U Marijuana (THC) Screen (NotDetected) Serum Alcohol <10 mg/dL 05/06/19 05/06/19 Range/Units 18:50 19:29 WBC (3.8-10.6) k/uL RBC (4.30-5.90) m/uL Hgb (13.0-17.5) gm/dL Hct (39.0-53.0) % MCV (80.0-100.0) fL MCH (25.0-35.0) pg MCHC (31.0-37.0) g/dL RDW (11.5-15.5) % Plt Count (150-450) k/uL Neutrophils % % Lymphocytes % % Monocytes % % Eosinophils % % Basophils % % Neutrophils # (1.3-7.7) k/uL Lymphocytes # (1.0-4.8) k/uL Monocytes # (0-1.0) k/uL Eosinophils # (0-0.7) k/uL Basophils # (0-0.2) k/uL PT (9.0-12.0) sec INR (<1.2) APTT (22.0-30.0) sec Sodium (137-145) mmol/L Potassium (3.5-5.1) mmol/L Chloride (98-107) mmol/L Carbon Dioxide (22-30) mmol/L Anion Gap mmol/L BUN (9-20) mg/dL Creatinine (0.66-1.25) mg/dL Est GFR (CKD-EPI)AfAm (>60 ml/min/1.73 sqM) Est GFR (CKD-EPI)NonAf (>60 ml/min/1.73 sqM) Glucose (74-99) mg/dL Calcium (8.4-10.2) mg/dL Magnesium (1.6-2.3) mg/dL Total Bilirubin (0.2-1.3) mg/dL AST (17-59) U/L ALT (4-49) U/L Alkaline Phosphatase (38-126) U/L Troponin I <0.012 (0.000-0.034) ng/mL Total Protein (6.3-8.2) g/dL Albumin (3.5-5.0) g/dL Urine Opiates Screen Not Detected (NotDetected) Ur Oxycodone Screen Not Detected (NotDetected) Urine Methadone Screen Not Detected (NotDetected) Ur Propoxyphene Screen Not Detected (NotDetected) Ur Barbiturates Screen Not Detected (NotDetected) U Tricyclic Antidepress Not Detected (NotDetected) Ur Phencyclidine Scrn Not Detected (NotDetected) Ur Amphetamines Screen Not Detected (NotDetected) U Methamphetamines Scrn Not Detected (NotDetected) U Benzodiazepines Scrn Not Detected (NotDetected) Urine Cocaine Screen Not Detected (NotDetected) U Marijuana (THC) Screen Not Detected (NotDetected) Serum Alcohol mg/dL - EKG Data -: EKG Interpreted by Me (Sinus rhythm a 9501 58 QRS duration 104 QT since QTC 362/454) - Radiology Data Radiology results: report reviewed (I did review the CT and report no acute findings or is evidence of an old right occipital finding. Please see complete report), image reviewed Critical Care Time Critical Care Time: Yes Critical Care Time: 39 minutes of critical care time which includes initial presentation with history physical labs x-rays discussed with paramedics upon arrival of reevaluation patient responsive therapy discuss with the patient discussion with the admitting physician Dr. Costa's group review of old charting was available. Disposition Clinical Impression: Intractable seizure disorder, Frandy's paralysis (postepileptic) Disposition: ADMITTED IP TO THIS [facility] Condition: Fair Referrals: Thony Singer MD [Primary Care Provider] - 1-2 days
[2019-05-06] MEDS ORDERED: LORazepam 2 MG/ML INJ IV STA (19:30)
[2019-05-06 19:36] LABS: AST 33 U/L (17-59); African American GFR (CKD) >90 (>60 ml/min/1.73 sqM); Albumin 4.8 g/dL (3.5-5.0); Alcohol <10 mg/dL; Alkaline Phosphatase 57 U/L (38-126); Anion Gap 15 mmol/L; Blood Urea Nitrogen 11 mg/dL (9-20); Calcium 9.5 mg/dL (8.4-10.2); Carbon Dioxide 24 mmol/L (22-30); Chloride 102 mmol/L (98-107); Glucose 118 mg/dL (74-99); Magnesium 1.7 mg/dL (1.6-2.3); Non-African American GFR(CKD) >90 (>60 ml/min/1.73 sqM); Potassium 3.8 mmol/L (3.5-5.1); Sodium 141 mmol/L (137-145); Total Bilirubin 0.5 mg/dL (0.2-1.3); Total Protein 7.9 g/dL (6.3-8.2)
[2019-05-06 19:41] LABS: ALT 17 U/L (4-49)
[2019-05-06 20:17] LABS: Amphetamine Screen,Urine Not Detected (NotDetected); Barbiturate Screen,Urine Not Detected (NotDetected); Benzodiazepines Screen,Urine Not Detected (NotDetected); Cocaine Screen,Urine Not Detected (NotDetected); Methadone Screen, Urine Not Detected (NotDetected); Opiate Screen,Urine Not Detected (NotDetected); Oxycodone Screen, Urine Not Detected (NotDetected); Phencyclidine Screen,Urine Not Detected (NotDetected); Tricyclic Antidepressant,Urine Not Detected (NotDetected); Urn Cannabinoid Scrn Not Detected (NotDetected)
--- NOTE | 2019-05-06 20:20 | CT ---
EXAMINATION TYPE: CT brain wo con DATE OF EXAM: 05/06/2019 COMPARISON: 12/16/2018 HISTORY: Altered mental status CT DLP: mGycm Automated exposure control for dose reduction was used. Multiple axial sections were obtained of the brain without contrast. There is cerebral cortical atrophy. There is old right posterior temporal lobe 4 cm infarct. There is no mass effect nor midline shift. There is no sign of intracranial hemorrhage. There is mucosal thic kening and expansion of the right maxillary sinus. There is osteosclerosis of the wall consistent wit h mucocele. There is mucosal thickening also right side ethmoid sinuses. 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
--- NOTE | 2019-05-06 20:25 | CT ---
EXAMINATION TYPE: CT angio head neck DATE OF EXAM: 05/06/2019 COMPARISON: None HISTORY: Seizure today. History of seizures. CT DLP: 433.9 mGycm Automated exposure control for dose reduction was used. CONTRAST: Performed with IV Contrast, patient injected with 65 mL of Isovue 370. Multiple axial sections were obtained from the aortic arch to the vertex of the brain with intravenou s contrast. There are 3-D post processed images. Thoracic aorta is atheromatous. There is normal bran [place] pattern of the great vessels on the aortic arch. There is bilateral arterial flow in the subcla vian arteries. There is arterial flow in both vertebral arteries. Right vertebral artery is larger th an the left. There is arterial flow in the common internal and external carotid arteries bilaterally. There is moderate plaque at the carotid artery bifurcations and estimated 40% stenosis at the origin left internal carotid artery. There is estimated 50% stenosis origin of the right internal carotid a rtery. There is arterial flow in the anterior middle and posterior cerebral arteries. There is arterial flow in the vertebrobasilar artery system. The basilar artery appears to fill entirely from the right dayanna e. There is no evidence of intracranial aneurysm or neovascularity. There is no mass effect. I see no ev idence of intracranial arterial stenosis. There is normal contrast opacification of the venous sinuse s. IMPRESSION: Negative CT angiogram of the brain. There is bilateral stenosis at the origin of the internal carotid arteries up to 50%. No aneurysm or dissection.
[2019-05-06 20:31] LABS: Prothrombin Time 10.2 sec (9.0-12.0)
[2019-05-06] MEDS ORDERED: NALOXONE 0.4 MG/ML 1 ML VIAL IV PRN (20:44)
[2019-05-06] MEDS ORDERED: ONDANSETRON 4 MG/2 ML VIAL IVP PRN (20:44)
[2019-05-06] MEDS ORDERED: SODIUM CHLORIDE 0.9% 1,000 ML IV SCH (20:45)
[2019-05-06] MEDS: LACOSAMIDE 50 MG TABLET PO SCH (22:43)
[2019-05-06 22:50] LABS: Glucose,Whole Blood 140 mg/dL (75-99)
[2019-05-07 02:19] LABS: Glucose,Whole Blood 106 mg/dL (75-99)
[2019-05-07 06:22] LABS: Glucose,Whole Blood 105 mg/dL (75-99)
[2019-05-07] MEDS: levETIRAcetam 500 MG TAB PO SCH ×2 (08:15→19:56)
[2019-05-07] MEDS: LACOSAMIDE 50 MG TABLET PO SCH ×2 (08:15→19:56)
[2019-05-07] MEDS: NICOTINE 21MG/24HR PATCH TRANSDERM SCH (08:16)
[2019-05-07] MEDS: PANTOPRAZOLE 40 MG/10 ML VIAL IV SCH (09:02)
[2019-05-07] MEDS ORDERED: LORazepam 2 MG/ML INJ IV PRN ×2 (09:12)
[2019-05-07] MEDS: LORazepam 2 MG/ML INJ IV PRN ×3 (09:29→22:45)
[2019-05-07 11:35] LABS: Glucose,Whole Blood 108 mg/dL (75-99)
[2019-05-07 16:49] LABS: Glucose,Whole Blood 113 mg/dL (75-99)
[2019-05-07] MEDS: amLODIPine 10 MG TAB PO SCH (16:58)
--- NOTE | 2019-05-07 17:35 | P.CNNES ---
History of Present Illness Consult date: 05/07/19 Reason for Consult: intractable seizures Chief complaint: seizure History of Present Illness: The patient is a 68-year-old male who is seen in neurologic consultation on May 07, 2019, via teleneurology. He presented to the emergency department after having a seizure at home. He then had another seizure in the ER. Patient reports having seizures, approximately one per month. His previous seizure was about 3 weeks ago. He reports not seeing a neurologist for his seizures. He tells me that his family doctor gives him his seizure medication. He then tells me he has been having seizures for the past 4-5 months. Although when I look at the records there is evidence of seizure, secondary to alcohol withdrawal, in 2018. The patient denies excessive alcohol use. He says he has 1-2 beers per day. He reports that on the day of his seizure, he had one half a beer. He says that he has been told that if he drinks less alcohol on a certain day and that will provoke a seizure. He then goes on to tell me that his alcohol level in the emergency department was normal. He denies any further seizures since admission. The patient denies family history of seizure. Mr. Osullivan tells me that he does often have an aura prior to his seizure. He says that he "starts looking to the left" and then sees various colors in his vision. He denies having an aura with every seizure. Today, Mr. Osullivan reports feeling a little bit shaky. He is otherwise "good". Mr. Osullivan denies blackouts and syncope. He is able to ambulate without difficulty. He lives with his girlfriend. He reports taking his seizure medication as prescribed. Review of Systems Negative except for that noted in history of chief complaint Past Medical History Past Medical History: Myocardial Infarction ([place]), Seizure Disorder Additional Past Medical History / Comment(s): ETOH abuse with past withdrawal DTs and seizures, R foot fracture 1 year ago-not healing properly, per Dr. Singer office visit note, pt seen 07/12/17 with perianal abscess. Last Myocardial Infarction Date:: 10/2018 History of Any Multi-Drug Resistant Organisms: None Reported Past Surgical History: No Surgical Hx Reported Additional Past Surgical History / Comment(s): Pt states he has never had surgery Past Anesthesia/Blood Transfusion Reactions: No Reported Reaction Additional Past Anesthesia/Blood Transfusion Reaction / Comment(s): "never received any blood transfusion" Past Psychological History: No Psychological Hx Reported Additional Psychological History / Comment(s): pt stated he drinks about 1 beers/day. started smoking at age 15 and has cut down to 1/2 ppd Smoking Status: Current every day smoker Past Alcohol Use History: Daily, Occasional Additional Past Alcohol Use History / Comment(s): Drinks 1 beers/day. Last drink 05/06/19 Past Drug Use History: None Reported - Past Family History Father History Unknown: Yes Family Medical History: Diabetes Mellitus Additional Family Medical History / Comment(s): Father was an alcoholic. Mother History Unknown: Yes Family Medical History: Diabetes Mellitus Medications and Allergies Home Medications Medication Instructions Recorded Confirmed Type Lacosamide [Vimpat] 50 mg PO BID 10/26/18 05/06/19 History levETIRAcetam [Keppra] 1,000 mg PO BID 12/15/18 05/06/19 History Atorvastatin [Lipitor] 20 mg PO DAILY 05/06/19 05/06/19 History Allergies Allergy/AdvReac Type Severity Reaction Status Date / Time No Known Allergies Allergy Verified 05/06/19 20:59 Physical Examination - Vital Signs Vital Signs: Vital Signs Temp Pulse Pulse Resp BP BP BP 05/07/19 11:40 166/82 05/07/19 11:39 162/101 05/07/19 11:36 98 F 83 18 187/117 05/07/19 08:00 98.6 F 71 18 155/100 05/07/19 04:10 98.2 F 67 17 156/94 05/07/19 01:15 98.4 F 69 16 135/80 05/06/19 23:30 72 16 05/06/19 22:14 99.1 F 75 12 138/73 05/06/19 21:19 98.6 F 80 16 136/91 05/06/19 20:01 98.5 F 92 15 126/98 05/06/19 19:31 99.0 F 98 18 158/97 05/06/19 19:20 99.0 F 103 H 17 177/92 05/06/19 18:48 98.4 F 96 18 145/91 Pulse Ox 05/07/19 11:40 05/07/19 11:39 05/07/19 11:36 98 05/07/19 08:00 98 05/07/19 04:10 97 05/07/19 01:15 95 05/06/19 23:30 05/06/19 22:14 97 05/06/19 21:19 96 05/06/19 20:01 96 05/06/19 19:31 98 05/06/19 19:20 92 L 05/06/19 18:48 95 Intake and Output 05/06/19 05/07/19 05/07/19 22:59 06:59 14:59 Intake Total 120 480 Output Total 50 300 1000 Balance 70 -300 -520 Intake: Oral 120 480 Output: Urine 50 300 1000 Uretheral (Guajardo) 50 Other: Voiding Method Urinal Urinal # Voids 1 # Bowel Movements 0 Weight 83.915 kg 75.3 kg Gen.: The patient is reclining in the bed. He is well-nourished, well-developed and in no acute distress. HEENT: Head is atraumatic, normocephalic. Fundus not visualized. There is no s cleral icterus. Mucous membranes are moist. Neck: Supple, without carotid bruits Heart: Regular rate and rhythm Extremities: Without edema Neurological examination Mental status: Patient is awake and alert. He is oriented to his date of . He initially tells me that his age is "87". I tell him that is not correct, he again gives me another incorrect answer. He is oriented to current year. He initially tells me that the current month is "January". He does realizes error and changes his answer to "April". He is oriented to location. Cranial nerves: Pupils are equal, round and reactive to light. Visual hallman are full to confrontation. Extraocular muscles are intact. There is no nystagmus. Facial sensation is intact. There is no facial asymmetry. Hearing is grossly intact. Uvula and palate are midline. Shoulder shrug is symmetric. Tongue protrudes midline. There is no evidence of laceration. Motor: Strength is 5/5 throughout. Sensation: Grossly intact to light touch Coordination: There is mild tremor of the right hand. There is no dysdiadochokinesia. Deep tendon reflexes: 2+/4+ in the left upper and lower extremities. 3+/4+ on the right. Gait: Not assessed Results - Laboratory Findings CBC and BMP: 05/06/19 18:50 05/06/19 18:50 Abnormal Lab Findings: Abnormal Labs 05/06/19 05/06/19 05/07/19 18:50 22:48 02:17 Glucose 118 H POC Glucose (mg/dL) 140 H 106 H 05/07/19 05/07/19 06:21 11:23 Glucose POC Glucose (mg/dL) 105 H 108 H - Diagnostic Findings Comments: CT scan reveals evidence of an old right posterior temporal infarct Assessment and Plan Assessment: Impressions: 1. Seizure disorder versus alcoholic withdrawal seizures ( records are reviewed and there is evidence of alcohol withdrawal seizures in the past) 2. Patient denies excessive alcohol use. He reports drinking 1-2 beers per day. Plan: Recommendations: 1. I advised the patient that he needs to see a neurologist for further evaluation of his seizures. I would recommend Dr. Shirley Ulloa who is at [facility] in [place], [place] 2. I advised Mr. Osullivan that he is not to be driving, per [place] law for the safety of himself and others. The patient denies driving. Time with Patient: Greater than 30
--- NOTE | 2019-05-07 17:55 | P.HPIM ---
History of Present Illness H&P Date: 05/07/19 Chief Complaint: Seizures Mr. Osullivan is a 68-year-old male with a past medical history of seizure disorder, alcohol abuse coming in with a chief complaint of having a seizure at home. Patient states that he was sitting in his bed when he started to feel that he would be having a seizure. It is a witnessed seizure by his girlfriend. Patient does not report any tongue bite or loss of bladder or bowel control. Patient has history of alcohol abuse but currently he is drinking only half a beer every day. Patient states that he has been compliant with his seizure med ications and takes them faithfully. Patient also had another witnessed seizure in the emergency department which was lasting for 2-3 minutes and it was a tonic-clonic seizure. Currently patient is comfortably sitting in bed appears to be no acute distress. Patient does not have any active complaints. Patient denies having any weakness of his extremities. His speech is normal. Patient denies having any fevers chills or rigors. No chest pain or palpitations. No abdominal pain nausea vomiting or diarrhea. No dysuria or hematuria. Patient's CBC and basic metabolic panel within normal limits. Urine toxicology showing less than 10 of serum alcohol. He also had CT angiogram of the brain and it was negative for any acute cranial process. Patient's blood pressure has been running on the bedside since admission. Review of Systems REVIEW OF SYSTEMS: PSYCH: Normal psychiatric exam NEURO:No c/o weakness of the extremties, No facial droop, No speech abnorm alities. VASCULAR: Peripheral nervous system within the normal limits no edema HEMATOLOGIC: No history of easy bleeding and bruising . No recent infections . RESPIRATORY: No cough, No SOB, No chest discomfort. IMMUNE: No infections INTEGUMENT: no rashes OPHTHALMOLOGIC: No blurry vision and no eye discharge : No dysuria or hematuria CARDIAC: No chest pain , shortness of breath , paroxysmal nocturnal dyspnea MUSCULOSKELETAL : No Aches or pains in the joints or muscles. GI: No abdominal pain, Nausea or vomiting. No constipation or diarrhea. Past Medical History Past Medical History: [place]ocardial Infarction ([place]), Seizure Disorder Additional Past Medical History / Comment(s): ETOH abuse with past withdrawal DTs and seizures, R foot fracture 1 year ago-not healing properly, per Dr. Singer office visit note, pt seen 07/12/17 with perianal abscess. Last Myocardial Infarction Date:: 10/2018 History of Any Multi-Drug Resistant Organisms: None Reported Past Surgical History: No Surgical Hx Reported Additional Past Surgical History / Comment(s): Pt states he has never had surgery Past Anesthesia/Blood Transfusion Reactions: No Reported Reaction Additional Past Anesthesia/Blood Transfusion Reaction / Comment(s): "never received any blood transfusion" Past Psychological History: No Psychological Hx Reported Additional Psychological History / Comment(s): pt stated he drinks about 1 beers/day. started smoking at age 15 and has cut down to 1/2 ppd Smoking Status: Current every day smoker Past Alcohol Use History: Daily, Occasional Additional Past Alcohol Use History / Comment(s): Drinks 1 beers/day. Last drink 05/06/19 Past Drug Use History: None Reported - Past Family History Father History Unknown: Yes Family Medical History: Diabetes Mellitus Additional Family Medical History / Comment(s): Father was an alcoholic. Mother History Unknown: Yes Family Medical History: Diabetes Mellitus Medications and Allergies Home Medications Medication Instructions Recorded Confirmed Type Lacosamide [Vimpat] 50 mg PO BID 10/26/18 05/06/19 History levETIRAcetam [Keppra] 1,000 mg PO BID 12/15/18 05/06/19 History Atorvastatin [Lipitor] 20 mg PO DAILY 05/06/19 05/06/19 History Allergies Allergy/AdvReac Type Severity Reaction Status Date / Time No Known Allergies Allergy Verified 05/06/19 20:59 Physical Exam Vitals: Vital Signs Temp Pulse Pulse Resp BP BP BP 05/07/19 16:00 98.3 F 84 18 147/97 05/07/19 11:40 166/82 05/07/19 11:39 162/101 05/07/19 11:36 98 F 83 18 187/117 05/07/19 08:00 98.6 F 71 18 155/100 05/07/19 04:10 98.2 F 67 17 156/94 05/07/19 01:15 98.4 F 69 16 135/80 05/06/19 23:30 72 16 05/06/19 22:14 99.1 F 75 12 138/73 05/06/19 21:19 98.6 F 80 16 136/91 05/06/19 20:01 98.5 F 92 15 126/98 05/06/19 19:31 99.0 F 98 18 158/97 05/06/19 19:20 99.0 F 103 H 17 177/92 05/06/19 18:48 98.4 F 96 18 145/91 Pulse Ox 05/07/19 16:00 96 05/07/19 11:40 05/07/19 11:39 05/07/19 11:36 98 05/07/19 08:00 98 05/07/19 04:10 97 05/07/19 01:15 95 05/06/19 23:30 05/06/19 22:14 97 05/06/19 21:19 96 05/06/19 20:01 96 05/06/19 19:31 98 05/06/19 19:20 92 L 05/06/19 18:48 95 Intake and Output 05/07/19 05/07/19 05/07/19 06:59 14:59 22:59 Intake Total 480 120 Output Total 300 1000 200 Balance -300 -520 -80 Intake: Oral 480 120 Output: Urine 300 1000 200 Other: Voiding Method Urinal Urinal # Voids 1 1 # Bowel Movements 0 0 Weight 75.3 kg GEN. APPEARANCE: alert, in no apparent distress HEAD EXAM: atraumatic, normocephalic, normal inspection EYE EXAM: normal appearance, PERRL, EOMI. Absent: scleral icterus, conjunctival injection, periorbital swelling ENT EXAM: normal exam, mucous membranes moist. Poor oral hygiene. NECK EXAM: normal inspection. No lymphadenopathy. No thyromegaly. RESPIRATORY EXAM: normal lung sounds bilaterally. No wheeze or crackles. CARDIOVASCULAR EXAM: regular rate, normal rhythm, normal heart sounds. GI/ABDOMINAL EXAM: soft, normal bowel sounds. No guarding or rigidity. No distention. EXTREMITIES EXAM: No pedal edema. NEUROLOGICAL EXAM: alert, oriented X3, no focal deficits. Strength is 5 out of 5 in all 4 extremities. PSYCHIATRIC EXAM: normal affect, normal mood SKIN EXAM: warm, dry, intact, normal color. Absent: rash Results CBC & Chem 7: 05/06/19 18:50 05/06/19 18:50 Labs: Abnormal Lab Results - Last 24 Hours (Table) 05/06/19 05/06/19 05/07/19 Range/Units 18:50 22:48 02:17 Glucose 118 H (74-99) mg/dL POC Glucose (mg/dL) 140 H 106 H (75-99) mg/dL 05/07/19 05/07/19 05/07/19 Range/Units 06:21 11:23 16:44 Glucose (74-99) mg/dL POC Glucose (mg/dL) 105 H 108 H 113 H (75-99) mg/dL Thrombosis Risk Factor Assmnt - Choose All That Apply Each Risk Factor Represents 2 Points: Age 61-74 years Thrombosis Risk Factor Assessment Total Risk Factor Score: 2 Thrombosis Risk Factor Assessment Level: Low Risk Assessment and Plan Assessment: ASSESSMENT Seizures - tonic-clonic Alcohol dependence PLAN: Patient was evaluated by neurology via telemetry neurology. He was suggested to follow up with outpatient neurology. We'll check for Keppra levels. Continue with current medication regimen. Counseled on alcohol abstinence. Also discussed as per admission note that he cannot drive for at least 6 months. Further recommendations to follow depending on the progress of the patient.
[2019-05-07 20:05] LABS: Glucose,Whole Blood 116 mg/dL (75-99)
[2019-05-08 02:01] LABS: Glucose,Whole Blood 102 mg/dL (75-99)
[2019-05-08] MEDS: LORazepam 2 MG/ML INJ IV PRN (02:25)
[2019-05-08 04:33] VITALS: TEMP 98.2
[2019-05-08 06:19] LABS: Glucose,Whole Blood 95 mg/dL (75-99)
[2019-05-08] MEDS: amLODIPine 10 MG TAB PO SCH (08:10)
[2019-05-08] MEDS: NICOTINE 21MG/24HR PATCH TRANSDERM SCH (08:10)
[2019-05-08] MEDS: PANTOPRAZOLE 40 MG/10 ML VIAL IV SCH (08:11)
[2019-05-08] MEDS: levETIRAcetam 500 MG TAB PO SCH (08:11)
[2019-05-08] MEDS: LACOSAMIDE 50 MG TABLET PO SCH (08:11)
--- NOTE | 2019-05-08 09:31 | P.DS ---
Providers Date of admission: 05/06/19 20:44 Expected date of discharge: 05/08/19 Attending physician: Mitch Costa Consults: 05/06/19 20:45 Consult Physician Routine Consulting Provider: Hyacinth Stone Consult Reason/Comments: Recurrent seizures Do you want consulting provider notified?: Yes, Notify in am Primary care physician: Lucrecia Bhandari [facility] Course: Final diagnosis Seizures/tonic-clonic Alcohol dependence Discharge disposition Patient is being discharged in a stable condition with guarded prognosis to home and will follow-up with neurology Dr. Shirley Ulloa out of [facility] in the outpatient setting. Patient will follow-up with primary care provider Dr. Singer this week. Patient will continue on his same dose of anti-seizure medication and counseled on avoiding all tobacco and alcohol use. Patient also instructed to avoid driving. Total time taken is 35 minutes. History of present illness This is a 68-year-old male who was recently admitted for history of seizure disorder, and alcohol abuse and was experiencing seizures at home and was being closely monitored. During hospitalization patient was evaluated by neurology via tele-medicine and was instructed to follow-up at [facility] neurology with Dr. Ulloa. An appointment is being scheduled prior to discharge. Soonest available appointment was in August with Dr. ulloa. An appointment is being scheduled with Dr. Longoria who is in town as the patient lives in [place] and currently lives with his girlfriend of which both do not drive and use the bus for travels. Currently patient's condition is stable and would like to go home today. Patient is not experiencing any form of alcohol withdrawal at this time. Patient was started on Norvasc during hospitalization due to multiple readings of high blood pressure and will continue this in the outpatient setting. Discussed with the patient about keeping a diary or log of blood pressure readings and discuss this with his primary care provider Dr. Singer in the outpatient setting. Patient agrees with this treatment plan. Currently patient denies any chest pain, shortness of breath, or palpitations. Patient has been afebrile. Patient denies any nausea or vomiting and is eating. No seizure-like activity noted. Discussed with the patient at length about continuing to avoid any alcohol or tobacco use. On exam vital signs are stable. Temp is 98.2F, pulse is 72, respirations are 18, blood pressure is 108/74, oxygen saturation is 94% on room air. Cardio S1, S2 are present. Respiratory system shows diminished breath sounds at the bases with minimal wheezing noted on expiration. Abdomen is soft, thin, nontender. Nervous system shows no focal deficits. Please refer to medication reconciliation sheet for a list of medications. Patient Condition at Discharge: Fair Plan - Discharge Summary Discharge Rx Participant: No New Discharge Prescriptions: New amLODIPine [Norvasc] 10 mg PO DAILY 30 Days #30 tab Continue Lacosamide [Vimpat] 50 mg PO BID levETIRAcetam [Keppra] 1,000 mg PO BID Atorvastatin [Lipitor] 20 mg PO DAILY Discharge Medication List Lacosamide [Vimpat] 50 mg PO BID 10/26/18 [History] levETIRAcetam [Keppra] 1,000 mg PO BID 12/15/18 [History] Atorvastatin [Lipitor] 20 mg PO DAILY 05/06/19 [History] amLODIPine [Norvasc] 10 mg PO DAILY 30 Days #30 tab 05/08/19 [Rx] Follow up Appointment(s)/Referral(s): Thony Singer MD [Primary Care Provider] - 05/15/19 1:50 pm () Marcelino Ulloa MD [STAFF PHYSICIAN] - 1 Week Patient Instructions/Handouts: Nonepileptic Seizures (DC), Alcohol Withdrawal (DC) Activity/Diet/Wound Care/Special Instructions: Activity limited until follow up follow up with primary care provider this week follow up with neurologist as discussed and scheduled continue current diet continue avoiding tobacco and alcohol use continue current medications monitor blood pressure and keep a diary or log of blood pressure readings to bring with you to doctor appointment Discharge Disposition: HOME SELF-CARE
[2019-05-08 09:39] VITALS: BP 108/76; PULSE 97; RESP 20
== END 2019-05-08 10:38 | disposition home or self-care (01) | DRG 101 ==
LOC: EC 18:45 → 3SCARD 20:44
PROVIDERS: ADMIT Hospitalist; ATTEND Hospitalist
DX: G40.919 Epilepsy, unspecified, intractable, without status epilepticus (principal); F10.239 Alcohol dependence with withdrawal, unspecified; G83.84 Todd's paralysis (postepileptic); F17.210 Nicotine dependence, cigarettes, uncomplicated; I25.2 Old myocardial infarction; Z79.899 Other long term (current) drug therapy; Z81.1 Family history of alcohol abuse and dependence; Z83.3 Family history of diabetes mellitus
CPT/HCPCS: 36415; 51702; 70450; 70496; 70498; 80053; 80177; 80306; 80320; 82553; 83735; 84484; 85025; 85610; 85730; 93005; 96365; 96375; 99291

== ENCOUNTER 2019-10-05 09:27 | Emergency (ER) | payer MEDICARE ==
[2019-10-05] MEDS ORDERED: SODIUM CHLORIDE 0.9% 1,000 ML IV STA (09:41)
[2019-10-05] MEDS ORDERED: LACOSAMIDE 50 MG TABLET PO STA (09:43)
--- NOTE | 2019-10-05 09:47 | ED ---
General Adult HPI - General Chief complaint: Seizure Stated complaint: Seizure Time Seen by Provider: 10/05/19 09:32 Source: patient, EMS, RN notes reviewed, old records reviewed Mode of arrival: EMS Limitations: altered mental status - History of Present Illness Initial comments: 69-year-old male with history of seizure disorder presents with 2 minute episode of tonic-clonic seizure witnessed by EMS. Patient was transported by EMS given 5 mg of intramuscular Versed for seizure activity. Patient is currently on Keppra which she has been compliant with and Vimpat. He does have previous history of alcohol withdrawal seizures. He states that he drinks one or 2 drinks daily. Denies injury. Denies pain complaints. Denies headache. Denies focal numbness or weakness. - Related Data Home Medications Medication Instructions Recorded Confirmed Lacosamide [Vimpat] 50 mg PO BID 10/26/18 10/05/19 levETIRAcetam [Keppra] 500 mg PO BID 10/05/19 10/05/19 Allergies Allergy/AdvReac Type Severity Reaction Status Date / Time No Known Allergies Allergy Verified 10/05/19 10:29 Review of Systems ROS Statement: Those systems with pertinent positive or pertinent negative responses have been documented in the HPI. ROS Other: All systems not noted in ROS Statement are negative. Past Medical History Past Medical History: [place] Infarction ([place]), Seizure Disorder Additional Past Medical History / Comment(s): ETOH abuse with past withdrawal D Ts and seizures, R foot fracture 1 year ago-not healing properly, per Dr. Singer office visit note, pt seen 07/12/17 with perianal abscess. Last Myocardial Infarction Date:: 10/2018 History of Any Multi-Drug Resistant Organisms: None Reported Past Surgical History: No Surgical Hx Reported Additional Past Surgical History / Comment(s): Pt states he has never had surgery Past Anesthesia/Blood Transfusion Reactions: No Reported Reaction Additional Past Anesthesia/Blood Transfusion Reaction / Comment(s): "never received any blood transfusion" Past Psychological History: No Psychological Hx Reported Additional Psychological History / Comment(s): pt stated he drinks about 1 beers/day. started smoking at age 15 and has cut down to 1/2 ppd Smoking Status: Current every day smoker Past Alcohol Use History: Daily, Occasional Additional Past Alcohol Use History / Comment(s): Drinks 1 beers/day. Last drink 1/11/20 Past Drug Use History: None Reported - Past Family History Father History Unknown: Yes Family Medical History: Diabetes Mellitus Additional Family Medical History / Comment(s): Father was an alcoholic. Mother History Unknown: Yes Family Medical History: Diabetes Mellitus General Exam Limitations: altered mental status General appearance: alert, in no apparent distress Head exam: Present: atraumatic, normocephalic Eye exam: Present: normal appearance, PERRL ENT exam: Present: normal exam Neck exam: Present: normal inspection. Absent: tenderness, meningismus Respiratory exam: Present: normal lung sounds bilaterally. Absent: respiratory distress, wheezes Cardiovascular Exam: Present: normal rhythm, tachycardia GI/Abdominal exam: Present: soft. Absent: distended, tenderness, guarding, rebound Extremities exam: Present: normal inspection, normal capillary refill. Absent: pedal edema Neurological exam: Present: alert, CN II-XII intact. Absent: oriented X3 (2 slow to respond), motor sensory deficit Psychiatric exam: Present: normal affect, normal mood Skin exam: Present: warm, dry, intact Course Vital Signs 10/05/19 10/05/19 10/05/19 09:30 10:10 11:04 Temperature 98.8 F Pulse Rate 129 H 85 73 Respiratory 20 16 16 Rate Blood Pressure 125/80 131/91 O2 Sat by Pulse 97 95 95 Oximetry 10/05/19 11:07 Temperature Pulse Rate 69 Respiratory 18 Rate Blood Pressure 133/91 O2 Sat by Pulse 96 Oximetry - Reevaluation(s) Reevaluation #1: 10/05/19 11:06 Patient reevaluated, resting comfortably, admits to 3 beers yesterday and states he has been noncompliant with his medications in general. EKG Findings - EKG Comments: EKG Findings:: Sinus tachycardia, ST segment depression in the lateral precordial leads, no ST segment elevation, rate of 125, WA interval 146, QRS duration 100, QTC 467 Medical Decision Making - Medical Decision Making 61-year-old male with tonic-clonic seizure, medication noncompliance. Patient has a nonfocal neurologic exam. He has a normal CBC, CMP showing lactic acidosis and metabolic acidosis with a CO2 of 18, lactic of 12. This is repeated after IV hydration, normalized lactic acid at 2.0. Patient remains asymptomatic on emergency department. He had been given a dose of his Vimpat and is instructed to continue his Vimpat and his keppra - Lab Data Result diagrams: 10/05/19 09:34 10/05/19 09:34 Lab Results 10/05/19 10/05/19 10/05/19 Range/Units 09:34 09:34 09:34 WBC 11.0 H (3.8-10.6) k/uL RBC 4.53 (4.30-5.90) m/uL Hgb 14.6 (13.0-17.5) gm/dL Hct 45.3 (39.0-53.0) % MCV 99.9 (80.0-100.0) fL MCH 32.3 (25.0-35.0) pg MCHC 32.3 (31.0-37.0) g/dL RDW 14.0 (11.5-15.5) % Plt Count 194 (150-450) k/uL Neutrophils % 75 % Lymphocytes % 15 % Monocytes % 6 % Eosinophils % 1 % Basophils % 0 % Neutrophils # 8.3 H (1.3-7.7) k/uL Lymphocytes # 1.6 (1.0-4.8) k/uL Monocytes # 0.7 (0-1.0) k/uL Eosinophils # 0.1 (0-0.7) k/uL Basophils # 0.0 (0-0.2) k/uL Sodium 139 (137-145) mmol/L Potassium 3.7 (3.5-5.1) mmol/L Chloride 102 (98-107) mmol/L Carbon Dioxide 16 L (22-30) mmol/L Anion Gap 21 mmol/L BUN 14 (9-20) mg/dL Creatinine 0.84 (0.66-1.25) mg/dL Est GFR (CKD-EPI)AfAm >90 (>60 ml/min/1.73 sqM) Est GFR (CKD-EPI)NonAf >90 (>60 ml/min/1.73 sqM) Glucose 178 H (74-99) mg/dL Plasma Lactic Acid Tommy 12.4 H* (0.7-2.0) mmol/L Calcium 9.5 (8.4-10.2) mg/dL Magnesium 1.8 (1.6-2.3) mg/dL Total Bilirubin 0.8 (0.2-1.3) mg/dL AST 30 (17-59) U/L ALT 25 (4-49) U/L Alkaline Phosphatase 47 (38-126) U/L Total Protein 7.9 (6.3-8.2) g/dL Albumin 4.8 (3.5-5.0) g/dL Serum Alcohol <10 mg/dL 10/05/19 Range/Units 11:07 WBC (3.8-10.6) k/uL RBC (4.30-5.90) m/uL Hgb (13.0-17.5) gm/dL Hct (39.0-53.0) % MCV (80.0-100.0) fL MCH (25.0-35.0) pg MCHC (31.0-37.0) g/dL RDW (11.5-15.5) % Plt Count (150-450) k/uL Neutrophils % % Lymphocytes % % Monocytes % % Eosinophils % % Basophils % % Neutrophils # (1.3-7.7) k/uL Lymphocytes # (1.0-4.8) k/uL Monocytes # (0-1.0) k/uL Eosinophils # (0-0.7) k/uL Basophils # (0-0.2) k/uL Sodium (137-145) mmol/L Potassium (3.5-5.1) mmol/L Chloride (98-107) mmol/L Carbon Dioxide (22-30) mmol/L Anion Gap mmol/L BUN (9-20) mg/dL Creatinine (0.66-1.25) mg/dL Est GFR (CKD-EPI)AfAm (>60 ml/min/1.73 sqM) Est GFR (CKD-EPI)NonAf (>60 ml/min/1.73 sqM) Glucose (74-99) mg/dL Plasma Lactic Acid Tommy 2.0 (0.7-2.0) mmol/L Calcium (8.4-10.2) mg/dL Magnesium (1.6-2.3) mg/dL Total Bilirubin (0.2-1.3) mg/dL AST (17-59) U/L ALT (4-49) U/L Alkaline Phosphatase (38-126) U/L Total Protein (6.3-8.2) g/dL Albumin (3.5-5.0) g/dL Serum Alcohol mg/dL Disposition Clinical Impression: Seizure, Alcohol abuse Disposition: HOME SELF-CARE Condition: Fair Instructions (If sedation given, give patient instructions): Recurrent Seizures in Adults (ED) Additional Instructions: Please take your medications as prescribed. Is patient prescribed a controlled substance at d/c from ED?: No Referrals: None,Stated [REFERRING] - 1-2 days Jadyn Ruelas MD [Medical Doctor] - 1-2 days Time of Disposition: 11:58
[2019-10-05 09:55] LABS: Basophils % (A) 0 %; Eosinophils # (A) 0.1 k/uL (0-0.7); Eosinophils % (A) 1 %; HCT 45.3 % (39.0-53.0); HGB 14.6 gm/dL (13.0-17.5); Lymphocytes # (A) 1.6 k/uL (1.0-4.8); Lymphocytes % (A) 15 %; MCH 32.3 pg (25.0-35.0); MCHC 32.3 g/dL (31.0-37.0); MCV 99.9 fL (80.0-100.0); Mean Platelet Volume 8.5; Monocytes # (A) 0.7 k/uL (0-1.0); Monocytes % (A) 6 %; Neutrophils # (A) 8.3 k/uL (1.3-7.7); Neutrophils % (A) 75 %; Platelet Count 194 k/uL (150-450); RBC 4.53 m/uL (4.30-5.90)
[2019-10-05 10:09] LABS: AST 30 U/L (17-59); African American GFR (CKD) >90 (>60 ml/min/1.73 sqM); Albumin 4.8 g/dL (3.5-5.0); Alcohol <10 mg/dL; Alkaline Phosphatase 47 U/L (38-126); Anion Gap 21 mmol/L; Blood Urea Nitrogen 14 mg/dL (9-20); Calcium 9.5 mg/dL (8.4-10.2); Carbon Dioxide 16 mmol/L (22-30); Chloride 102 mmol/L (98-107); Glucose 178 mg/dL (74-99); Magnesium 1.8 mg/dL (1.6-2.3); Non-African American GFR(CKD) >90 (>60 ml/min/1.73 sqM); Potassium 3.7 mmol/L (3.5-5.1); Sodium 139 mmol/L (137-145); Total Bilirubin 0.8 mg/dL (0.2-1.3); Total Protein 7.9 g/dL (6.3-8.2)
[2019-10-05 10:16] LABS: ALT 25 U/L (4-49)
[2019-10-05 11:07] VITALS: RESP 18
[2019-10-05 12:04] VITALS: BP 137/92; PULSE 73; TEMP 99
[2019-10-05] MEDS: levETIRAcetam 500 MG TAB PO STA ×2 (12:13→12:14)
== END 2019-10-05 12:18 | disposition home or self-care (01) ==
LOC: EC 09:27
DX: G40.409 Other generalized epilepsy and epileptic syndromes, not intractable, without status epilepticus (principal); E87.2 Acidosis; I25.2 Old myocardial infarction; F17.200 Nicotine dependence, unspecified, uncomplicated; F10.10 Alcohol abuse, uncomplicated; Z79.899 Other long term (current) drug therapy
CPT/HCPCS: 36415; 93005; 80053; 83605; 83735; 85025; 96360; 96361; 99284; G0480; 80320

== ENCOUNTER 2019-10-30 14:07 | Observation (INO) | payer MEDICARE ==
--- NOTE | 2019-10-30 14:36 | ED ---
General Adult HPI - General Chief complaint: Seizure Stated complaint: fever/seizure/dehydration Time Seen by Provider: 10/30/19 14:22 Source: patient, EMS Mode of arrival: EMS Limitations: no limitations - History of Present Illness Initial comments: Dictation was produced using [employer] dictation software. please excuse any grammatical, word or spelling errors. This patient was cared for during a federal and state declared state of emergency secondary to Covid 19 Chief Complaint: 69-year-old male presents after seizure History of Present Illness: 69-year-old male presents with seizure. Patient has past medical history of epilepsy. He ran out of his medications 3 or 4 days ago. Patient takes Keppra and Vimpat. His seizure doctor is his primary care physician. Patient takes 500 mg of Keppra 3 times a day and 50 mg of lacosamide twice a day. Patient has had seizures in the past due to medication noncompliance. He was at home when he had the seizure. He felt an aura and knew that he was unassigned having seizures to call EMS. Patient has no complaints at this time. He has no pain complaints. He is not short of breath. No cough. The ROS documented in this emergency department record has been reviewed and con firmed by me. Those systems with pertinent positive or negative responses have been documented in the HPI. All other systems are other negative and/or noncontributory. PHYSICAL EXAM: General Impression: Alert and oriented x3, not in acute distress HEENT: Normocephalic atraumatic, extra-ocular movements intact, pupils equal and reactive to light bilaterally, mucous membranes moist. Cardiovascular: Heart regular rate and rhythm Chest: Able to complete full sentences, no retractions, no tachypnea Abdomen: abdomen soft, non-tender, non-distended, no organomegaly Musculoskeletal: Pulses present and equal in all extremities, no peripheral edema Motor: no focal deficits noted Neurological: CN II-XII grossly intact, no focal motor or sensory deficits noted Skin: Intact with no visualized rashes Psych: Normal affect and mood ED course: 69-year-old male presents with seizure secondary to medication noncompliance. vital signs upon arrival shows temperature 100.2, 93% on room air, rest of vital signs within acceptable limits. Laboratory evaluation obtained. CBC, coag panel is unremarkable. Metabolic panel is finding things within acceptable limits. His lactic acidosis 3.2 magnesium 1.5. Patient's magnesium was replaced. Lactic acidosis likely from seizure activity. While patient was waiting to be loaded with Keppra and Vimpat patient had another episode of seizure. Reflex lactic acid level was absent elevated due to repeat seizure. Disposition options were discussed with patient. Patient states he will not be able to get his refill on his seizure medications in a timely fashion. Considering his social situation patient will be admitted. We will have neurology consulted for evaluation of patient's antiseizure medication regimen. EKG interpretation: Ventricular rate 86, normal sinus rhythm,. Interval 152, QRS 102, QTc 440. No MA prolongation, no QTC prolongation, no ST or T-wave changes noted. EKG compared to 10/05/2019 showing no changes. Overall, this EKG is unremarkable - Related Data Home Medications Medication Instructions Recorded Confirmed Lacosamide [Vimpat] 50 mg PO BID 10/26/18 10/05/19 levETIRAcetam [Keppra] 500 mg PO BID 10/05/19 10/05/19 Previous Rx's Medication Instructions Recorded Lacosamide [Vimpat] 50 mg PO BID 30 Days #60 tab 10/05/19 levETIRAcetam [Keppra] 500 mg PO BID #60 tab 10/05/19 Allergies Allergy/AdvReac Type Severity Reaction Status Date / Time No Known Allergies Allergy Verified 10/30/19 14:14 Review of Systems ROS Statement: Those systems with pertinent positive or pertinent negative responses have been documented in the HPI. ROS Other: All systems not noted in ROS Statement are negative. Past Medical History Past Medical History: Myocardial Infarction ([place]), Seizure Disorder Additional Past Medical History / Comment(s): ETOH abuse with past withdrawal DTs and seizures, R foot fracture 1 year ago-not healing properly, per Dr. Singer office visit note, pt seen 07/12/17 with perianal abscess. Last Myocardial Infarction Date:: 10/2018 History of Any Multi-Drug Resistant Organisms: None Reported Past Surgical History: No Surgical Hx Reported Additional Past Surgical History / Comment(s): Pt states he has never had surgery Past Anesthesia/Blood Transfusion Reactions: No Reported Reaction Additional Past Anesthesia/Blood Transfusion Reaction / Comment(s): "never received any blood transfusion" Past Psychological History: No Psychological Hx Reported Smoking Status: Current every day smoker Past Alcohol Use History: Daily Past Drug Use History: None Reported - Past Family History Father History Unknown: Yes Family Medical History: Diabetes Mellitus Additional Family Medical History / Comment(s): Father was an alcoholic. Mother History Unknown: Yes Family Medical History: Diabetes Mellitus General Exam Limitations: no limitations Course Vital Signs 10/30/19 10/30/19 10/30/19 14:08 15:28 16:30 Temperature 100.2 F H Pulse Rate 96 87 82 Respiratory 18 18 18 Rate Blood Pressure 156/91 149/98 146/86 O2 Sat by Pulse 93 L 94 L 93 L Oximetry Medical Decision Making - Lab Data Result diagrams: 10/30/19 14:30 10/30/19 14:30 Lab Results 10/30/19 10/30/19 10/30/19 Range/Units 14:30 14:30 14:30 WBC 9.0 (3.8-10.6) k/uL RBC 4.60 (4.30-5.90) m/uL Hgb 14.1 (13.0-17.5) gm/dL Hct 43.2 (39.0-53.0) % MCV 93.8 D (80.0-100.0) fL MCH 30.7 (25.0-35.0) pg MCHC 32.8 (31.0-37.0) g/dL RDW 13.4 (11.5-15.5) % Plt Count 221 (150-450) k/uL Neutrophils % 81 % Lymphocytes % 11 % Monocytes % 5 % Eosinophils % 1 % Basophils % 0 % Neutrophils # 7.4 (1.3-7.7) k/uL Lymphocytes # 1.0 (1.0-4.8) k/uL Monocytes # 0.4 (0-1.0) k/uL Eosinophils # 0.1 (0-0.7) k/uL Basophils # 0.0 (0-0.2) k/uL PT 9.9 (9.0-12.0) sec INR 1.0 (<1.2) APTT 23.0 (22.0-30.0) sec Sodium 138 (137-145) mmol/L Potassium 4.0 (3.5-5.1) mmol/L Chloride 104 (98-107) mmol/L Carbon Dioxide 23 (22-30) mmol/L Anion Gap 11 mmol/L BUN 10 (9-20) mg/dL Creatinine 0.63 L (0.66-1.25) mg/dL Est GFR (CKD-EPI)AfAm >90 (>60 ml/min/1.73 sqM) Est GFR (CKD-EPI)NonAf >90 (>60 ml/min/1.73 sqM) Glucose 102 H (74-99) mg/dL POC Glucose (mg/dL) (75-99) mg/dL POC Glu Junior Buyer ID Lactic Ac Sepsis Rflx Plasma Lactic Acid Tommy (0.7-2.0) mmol/L Calcium 9.2 (8.4-10.2) mg/dL Magnesium 1.5 L (1.6-2.3) mg/dL Total Bilirubin 0.4 (0.2-1.3) mg/dL AST 27 (17-59) U/L ALT 14 (4-49) U/L Alkaline Phosphatase 58 (38-126) U/L Troponin I (0.000-0.034) ng/mL Total Protein 7.0 (6.3-8.2) g/dL Albumin 4.4 (3.5-5.0) g/dL Urine Color Urine Appearance (Clear) Urine pH (5.0-8.0) Ur Specific [place] (1.001-1.035) Urine Protein (Negative) Urine Glucose (UA) (Negative) Urine Ketones (Negative) Urine Blood (Negative) Urine Nitrite (Negative) Urine Bilirubin (Negative) Urine Urobilinogen (<2.0) mg/dL Ur Leukocyte Esterase (Negative) Urine RBC (0-5) /hpf Urine WBC (0-5) /hpf Ur Squamous Epith Cells (0-4) /hpf Urine Bacteria (None) /hpf Hyaline Casts (0-2) /lpf Urine Mucus (None) /hpf 10/30/19 10/30/19 10/30/19 Range/Units 14:30 14:30 14:34 WBC (3.8-10.6) k/uL RBC (4.30-5.90) m/uL Hgb (13.0-17.5) gm/dL Hct (39.0-53.0) % MCV (80.0-100.0) fL MCH (25.0-35.0) pg MCHC (31.0-37.0) g/dL RDW (11.5-15.5) % Plt Count (150-450) k/uL Neutrophils % % Lymphocytes % % Monocytes % % Eosinophils % % Basophils % % Neutrophils # (1.3-7.7) k/uL Lymphocytes # (1.0-4.8) k/uL Monocytes # (0-1.0) k/uL Eosinophils # (0-0.7) k/uL Basophils # (0-0.2) k/uL PT (9.0-12.0) sec INR (<1.2) APTT (22.0-30.0) sec Sodium (137-145) mmol/L Potassium (3.5-5.1) mmol/L Chloride (98-107) mmol/L Carbon Dioxide (22-30) mmol/L Anion Gap mmol/L BUN (9-20) mg/dL Creatinine (0.66-1.25) mg/dL Est GFR (CKD-EPI)AfAm (>60 ml/min/1.73 sqM) Est GFR (CKD-EPI)NonAf (>60 ml/min/1.73 sqM) Glucose (74-99) mg/dL POC Glucose (mg/dL) 100 H (75-99) mg/dL POC Glu Junior Buyer ID Fany Nicole Lactic Ac Sepsis Rflx Plasma Lactic Acid Tommy 3.2 H* (0.7-2.0) mmol/L Calcium (8.4-10.2) mg/dL Magnesium (1.6-2.3) mg/dL Total Bilirubin (0.2-1.3) mg/dL AST (17-59) U/L ALT (4-49) U/L Alkaline Phosphatase (38-126) U/L Troponin I <0.012 (0.000-0.034) ng/mL Total Protein (6.3-8.2) g/dL Albumin (3.5-5.0) g/dL Urine Color Urine Appearance (Clear) Urine pH (5.0-8.0) Ur Specific [place] (1.001-1.035) Urine Protein (Negative) Urine Glucose (UA) (Negative) Urine Ketones (Negative) Urine Blood (Negative) Urine Nitrite (Negative) Urine Bilirubin (Negative) Urine Urobilinogen (<2.0) mg/dL Ur Leukocyte Esterase (Negative) Urine RBC (0-5) /hpf Urine WBC (0-5) /hpf Ur Squamous Epith Cells (0-4) /hpf Urine Bacteria (None) /hpf Hyaline Casts (0-2) /lpf Urine Mucus (None) /hpf 10/30/19 10/30/19 10/30/19 Range/Units 15:00 17:09 17:22 WBC (3.8-10.6) k/uL RBC (4.30-5.90) m/uL Hgb (13.0-17.5) gm/dL Hct (39.0-53.0) % MCV (80.0-100.0) fL MCH (25.0-35.0) pg MCHC (31.0-37.0) g/dL RDW (11.5-15.5) % Plt Count (150-450) k/uL Neutrophils % % Lymphocytes % % Monocytes % % Eosinophils % % Basophils % % Neutrophils # (1.3-7.7) k/uL Lymphocytes # (1.0-4.8) k/uL Monocytes # (0-1.0) k/uL Eosinophils # (0-0.7) k/uL Basophils # (0-0.2) k/uL PT (9.0-12.0) sec INR (<1.2) APTT (22.0-30.0) sec Sodium (137-145) mmol/L Potassium (3.5-5.1) mmol/L Chloride (98-107) mmol/L Carbon Dioxide (22-30) mmol/L Anion Gap mmol/L BUN (9-20) mg/dL Creatinine (0.66-1.25) mg/dL Est GFR (CKD-EPI)AfAm (>60 ml/min/1.73 sqM) Est GFR (CKD-EPI)NonAf (>60 ml/min/1.73 sqM) Glucose (74-99) mg/dL POC Glucose (mg/dL) (75-99) mg/dL POC Glu Junior Buyer ID Lactic Ac Sepsis Rflx Y Plasma Lactic Acid Tommy 5.6 H* (0.7-2.0) mmol/L Calcium (8.4-10.2) mg/dL Magnesium (1.6-2.3) mg/dL Total Bilirubin (0.2-1.3) mg/dL AST (17-59) U/L ALT (4-49) U/L Alkaline Phosphatase (38-126) U/L Troponin I (0.000-0.034) ng/mL Total Protein (6.3-8.2) g/dL Albumin (3.5-5.0) g/dL Urine Color Yellow Urine Appearance Clear (Clear) Urine pH 5.0 (5.0-8.0) Ur Specific [place] 1.014 (1.001-1.035) Urine Protein 2+ H (Negative) Urine Glucose (UA) Negative (Negative) Urine Ketones 1+ H (Negative) Urine Blood Moderate H (Negative) Urine Nitrite Negative (Negative) Urine Bilirubin Negative (Negative) Urine Urobilinogen <2.0 (<2.0) mg/dL Ur Leukocyte Esterase Small H (Negative) Urine RBC 3 (0-5) /hpf Urine WBC 7 H (0-5) /hpf Ur Squamous Epith Cells 1 (0-4) /hpf Urine Bacteria Rare H (None) /hpf Hyaline Casts 16 H (0-2) /lpf Urine Mucus Rare H (None) /hpf Disposition Clinical Impression: Seizure Disposition: ADMITTED IP TO THIS HOSP Condition: Fair Referrals: Thony Singer MD [Primary Care Provider] - 1-2 days Decision Time: 17:46
[2019-10-30 14:37] LABS: Glucose,Whole Blood 100 mg/dL (75-99)
[2019-10-30 14:44] LABS: Basophils % (A) 0 %; Eosinophils # (A) 0.1 k/uL (0-0.7); Eosinophils % (A) 1 %; HCT 43.2 % (39.0-53.0); HGB 14.1 gm/dL (13.0-17.5); Lymphocytes % (A) 11 %; MCH 30.7 pg (25.0-35.0); MCHC 32.8 g/dL (31.0-37.0); Mean Platelet Volume 7.6; Monocytes # (A) 0.4 k/uL (0-1.0); Monocytes % (A) 5 %; Neutrophils # (A) 7.4 k/uL (1.3-7.7); Neutrophils % (A) 81 %; Platelet Count 221 k/uL (150-450); RDW 13.4 % (11.5-15.5)
[2019-10-30 14:45] LABS: MCV 93.8 fL (80.0-100.0)
[2019-10-30 14:52] LABS: Prothrombin Time 9.9 sec (9.0-12.0)
[2019-10-30 14:54] LABS: ALT 14 U/L (4-49); AST 27 U/L (17-59); African American GFR (CKD) >90 (>60 ml/min/1.73 sqM); Albumin 4.4 g/dL (3.5-5.0); Alkaline Phosphatase 58 U/L (38-126); Anion Gap 11 mmol/L; Blood Urea Nitrogen 10 mg/dL (9-20); Calcium 9.2 mg/dL (8.4-10.2); Carbon Dioxide 23 mmol/L (22-30); Chloride 104 mmol/L (98-107); Glucose 102 mg/dL (74-99); Magnesium 1.5 mg/dL (1.6-2.3); Non-African American GFR(CKD) >90 (>60 ml/min/1.73 sqM); Sodium 138 mmol/L (137-145); Total Bilirubin 0.4 mg/dL (0.2-1.3)
[2019-10-30] MEDS: LACOSAMIDE IV 100 MG in SODIUM CHLORIDE 0.9% 50 ML IVPB STA ×3 (16:00→19:46)
[2019-10-30] MEDS ORDERED: levETIRAcetam IV 1,000 MG in SALINE 1 100ML.BAG IVPB STA (16:20)
[2019-10-30] MEDS ORDERED: LORazepam 2 MG/ML INJ IV PRN (16:20)
[2019-10-30] MEDS ORDERED: KETOROLAC 30 MG/ML 1 ML VIAL IVP STA (16:30)
[2019-10-30] MEDS ORDERED: ACETAMINOPHEN TAB 500 MG TAB PO STA (16:30)
[2019-10-30 17:30] LABS: Appearance,Urine Clear (Clear); Bacteria,Urine Rare /hpf; Bilirubin,Urine Negative (Negative); Blood,Urine Moderate (Negative); Color,Urine Yellow; Glucose,Urine (UA) Negative (Negative); Hyaline Casts,Urine 16 /lpf (0-2); Ketones,Urine 1+ (Negative); Leukocyte Esterase,Urine Small (Negative); Mucus,Urine Rare /hpf; Nitrite,Urine Negative (Negative); Protein,Urine 2+ (Negative); RBC,Urine 3 /hpf (0-5); Specific Gravity,Urine 1.014 (1.001-1.035); Squamous Epithelial Cell,Urine 1 /hpf (0-4); Urobilinogen,Urine <2.0 mg/dL (<2.0); WBC,Urine 7 /hpf (0-5)
[2019-10-30] MEDS ORDERED: NALOXONE 0.4 MG/ML 1 ML VIAL IV PRN (17:42)
[2019-10-30] MEDS ORDERED: MAGNESIUM OXIDE 400 MG TAB PO STA (17:44)
[2019-10-30] MEDS ORDERED: SODIUM CHLORIDE 0.9% 1,000 ML IV SCH (17:45)
[2019-10-30] MEDS ORDERED: HYDROcodone/APAP 5-325MG 1 EACH TAB PO PRN (20:50)
[2019-10-30] MEDS: levETIRAcetam 500 MG TAB PO SCH (21:52)
[2019-10-30] MEDS: LACOSAMIDE 50 MG TABLET PO SCH (21:52)
[2019-10-31 08:23] VITALS: TEMP 98.5
[2019-10-31] MEDS: levETIRAcetam 500 MG TAB PO SCH (08:24)
[2019-10-31] MEDS: LACOSAMIDE 50 MG TABLET PO SCH (08:24)
[2019-10-31 12:31] VITALS: BP 148/77; PULSE 69; RESP 16
--- NOTE | 2019-10-31 13:13 | P.CNNES ---
History of Present Illness Consult date: 10/31/19 Requesting physician: Blaine Cole Reason for Consult: Seizure medication evaluation History of Present Illness: Patient is a 69-year-old male, who has history of seizure disorder for the last 5 years, came to the hospital because of 2 seizures. Patient states that when he has seizures, he starts shaking, in the hands and legs and then he loses speech. The seizure lasts for 3-4 minutes. He denies any tongue bite or loss of control of urine. Patient currently is on Keppra 500 mg twice a day and Vimpat 50 mg twice a day. Patient states that the medication cost too much, referring to Keppra. He states that he has not been taking his seizure medications for the last 3 days, both of them. Patient was seen at [facility] by Dr. Stone on 05/07/2019, in which it was reported that he has baseline seizure frequency of 1 per month. He had history of alcohol withdrawal seizure in 2018. He gets an aura prior to his seizure. He then starts looking to the left and then sees various colors in his vision. He denies having an aura with every seizure. Patient was recommended to follow up with local neurologist Dr. Ulloa, , but he has not made any follow-up appointment with a neurologist locally. Patient smokes half pack per day for 20 years. He states that he drinks 1-2 beers per day. He does not believe himself as alcoholic. Does not do any drugs. Patient had an EEG on 09/04/2017, which was normal sleep. No epileptiform activity was seen. Patient had a CTA of head and neck on 02/2020, and weight CTA of the brain was normal. CTA of the neck showed bilateral stenosis at the origin of the ICA up to 50%. No aneurysm or dissection. Patient had an MRI of brain with and without contrast on 09/04/2017, which revealed abnormal signal involving the right temporal and parietal lobes predominantly cortical. Gyral enhancement seen on post contrast images. Acute ischemia is the most likely etiology. It is concerning for infectious etiology, then consider cerebritis or encephalitis. Patient had a carotid Doppler on 09/04/2017 which revealed 50-69% stenosis of proximal left ICA. Patient was seen by neurologist previously in 2018 and recommended aspirin and statins. Review of Systems Patient denies headache, problem with the vision, ptosis or throat dysphagia. Denies shortness of breath wheezing or cough. Denies abdominal pain nausea vomi ting diarrhea. Past Medical History Past Medical History: Myocardial Infarction ([place]), Seizure Disorder Additional Past Medical History / Comment(s): ETOH abuse with past withdrawal DTs and seizures, R foot fracture 1 year ago-not healing properly, per Dr. Singer office visit note, pt seen 07/12/17 with perianal abscess. Last Myocardial Infarction Date:: 10/2018 History of Any Multi-Drug Resistant Organisms: None Reported Past Surgical History: No Surgical Hx Reported Additional Past Surgical History / Comment(s): Pt states he has never had surgery Past Anesthesia/Blood Transfusion Reactions: No Reported Reaction Additional Past Anesthesia/Blood Transfusion Reaction / Comment(s): "never received any blood transfusion" Past Psychological History: No Psychological Hx Reported Additional Psychological History / Comment(s): pt stated he drinks about 1 beers/day. started smoking at age 15 and has cut down to 1/2 ppd Smoking Status: Current every day smoker Past Alcohol Use History: Daily Additional Past Alcohol Use History / Comment(s): Drinks 1 beers/day. Last drink 05/06/19 Past Drug Use History: None Reported - Past Family History Father History Unknown: Yes Family Medical History: Diabetes Mellitus Additional Family Medical History / Comment(s): Father was an alcoholic. Mother History Unknown: Yes Family Medical History: Diabetes Mellitus Medications and Allergies Home Medications Medication Instructions Recorded Confirmed Type Lacosamide [Vimpat] 50 mg PO BID 10/26/18 10/30/19 History levETIRAcetam [Keppra] 500 mg PO BID #60 tab 10/05/19 10/30/19 Rx Allergies Allergy/AdvReac Type Severity Reaction Status Date / Time No Known Allergies Allergy Verified 10/30/19 18:22 Physical Examination - Vital Signs Vital Signs: Vital Signs Temp Pulse Pulse Resp BP BP Pulse Ox 10/31/19 08:22 98.5 F 10/31/19 07:46 73 18 151/88 94 L 10/31/19 04:25 98.9 F 65 14 129/75 94 L 10/31/19 00:48 99.7 F H 16 133/75 96 10/30/19 21:10 99.6 F 80 16 129/72 94 L 10/30/19 20:55 16 10/30/19 17:44 98.9 F 78 18 147/93 94 L 10/30/19 16:30 82 18 146/86 93 L 10/30/19 15:28 87 18 149/98 94 L 10/30/19 14:08 100.2 F H 96 18 156/91 93 L Intake and Output 10/30/19 10/31/19 10/31/19 22:59 06:59 14:59 Intake Total 590 Balance 590 Intake: Oral 590 Other: Voiding Method Urinal Urinal Weight 83.915 kg On examination patient is an elderly male, in no acute distress. Patient is alert and awake. He knows it is October 2019 and that he is in [facility]. Speech and language functions are normal. Attention and concentration fund of knowledge is adequate. On cranial examination pupils are round and reactive to light, visual hallman are full on confrontation. Extraocular muscles are intact with no nystagmus. Face is symmetric, tongue protrudes the midline. Palatal elevation and sensation normal. Hearing and shoulder shrug normal. On muscle strength testing there is no pronator drift and the strength is normal in arms and legs distally and proximally. Reflexes are 1+, plantars downgoing. Sensory touch is equal. No ataxia for [id number] testing. Tone and bulk of muscles normal. Patient appears slightly tremulous. No obvious bruit, S1 and S2 audible. No peripheral edema. Abdomen soft nontender. Chest is clear. Results - Laboratory Findings CBC and BMP: 10/30/19 14:30 10/30/19 14:30 Abnormal Lab Findings: Abnormal Labs 10/30/19 10/30/19 10/30/19 14:30 14:30 14:34 Creatinine 0.63 L Glucose 102 H POC Glucose (mg/dL) 100 H Plasma Lactic Acid Tommy 3.2 H* Magnesium 1.5 L Urine Protein Urine Ketones Urine Blood Ur Leukocyte Esterase Urine WBC Urine Bacteria Hyaline Casts Urine Mucus 10/30/19 10/30/19 10/30/19 17:09 17:22 20:13 Creatinine Glucose POC Glucose (mg/dL) Plasma Lactic Acid Tommy 5.6 H* 2.8 H* Magnesium Urine Protein 2+ H Urine Ketones 1+ H Urine Blood Moderate H Ur Leukocyte Esterase Small H Urine WBC 7 H Urine Bacteria Rare H Hyaline Casts 16 H Urine Mucus Rare H Assessment and Plan Assessment: * Seizure disorder, came with breakthrough seizure. Patient has missed 3 days of his seizure medication. 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 * Tobacco use * Alcohol use * Noncompliance with medical treatment Plan: * Patient believes Keppra is very expensive, and he cannot afford it. He will stop Keppra. We will increase Vimpat to 100 mg twice a day. After one week, the dose can be increased to 150 mg twice a day. Prescription was written. * We will check EEG. * Patient will be started on aspirin 81 mg daily due to his history of CVA and carotid disease. * Lipitor 20 mg daily. * Suggest abstinence from tobacco and alcohol. * Patient strongly recommended to follow up with a neurologist locally for management of his seizure disorder. * Patient recommended no driving, operating dangerous machinery, climbing ladders or unsupervised swimming.
[2019-10-31] MEDS ORDERED: ATORVASTATIN 20 MG TAB PO SCH (13:15)
[2019-10-31] MEDS ORDERED: LACOSAMIDE 50 MG TABLET PO ONE (13:15)
[2019-10-31] MEDS ORDERED: ASPIRIN 81 MG PO SCH (13:15)
--- NOTE | 2019-10-31 15:40 | EEG ---
ELECTROENCEPHALOGRAM REPORT DATE OF SERVICE: 10/31/2019 PREAMBLE: This is a 69-year-old male who has history of seizure disorder. This study is performed to evaluate for any epileptiform activity. EEG FINDINGS: This is a 21 channel routine EEG recording in a patient utilizing 10/20 international system with referential and bipolar montages. The background consists of well developed, well regulated, moderate voltage activity at 7-8 hertz, posterior dominant, reactive to eye opening and closing. There is very frequent, almost constant, focal slowing in dysrhythmic delta and theta activity in the right temporal region. Photic driving response was not clearly seen. Different stages of sleep were not seen. No definitive epileptiform activity was seen. EKG rhythm lead revealed mild arrhythmia. IMPRESSION: This is an abnormal EEG due to: 1. Minimal background slowing, suggestive of mild generalized cerebral dysfunction, as can be seen with encephalopathy or medication effect. 2. Focal slowing over the right temporal region. This is suggestive of focal cortical neuronal dysfunction and suggests underlying structural abnormality. No definitive epileptiform activity was seen. MMODL / IJN: [id number] / MTDD
--- NOTE | 2019-10-31 15:43 | P.DS ---
Providers Date of admission: 10/30/19 17:42 Attending physician: Nilda Fitzpatrick Consults: 10/30/19 17:43 Consult Physician Routine Consulting Provider: Gladys Leal Consult Reason/Comments: seizure medication evaluation Do you want consulting provider notified?: Yes Primary care physician: Lucrecia Bhandari [facility] Course: as mentioned in HPI Patient Condition at Discharge: Fair Plan - Discharge Summary Discharge Rx Participant: No New Discharge Prescriptions: New Aspirin 81 mg PO DAILY #30 chew levETIRAcetam [Keppra] 1,000 mg PO Q12HR #60 tab Atorvastatin [Lipitor] 20 mg PO DAILY #30 tab Discontinued Lacosamide [Vimpat] 50 mg PO BID levETIRAcetam [Keppra] 500 mg PO BID #60 tab Discharge Medication List Aspirin 81 mg PO DAILY #30 chew 10/31/19 [Rx] Atorvastatin [Lipitor] 20 mg PO DAILY #30 tab 10/31/19 [Rx] levETIRAcetam [Keppra] 1,000 mg PO Q12HR #60 tab 10/31/19 [Rx] Follow up Appointment(s)/Referral(s): Thony Singer MD [Primary Care Provider] - 3 Days Austen Longoria MD [STAFF PHYSICIAN] - 1 Week Discharge Disposition: HOME SELF-CARE
--- NOTE | 2019-10-31 15:43 | P.HPIM ---
History of Present Illness 63-year-old male came in after having a seizure episode seizure lasted for 3-4 minutes no tongue biting no loss of mother bladder incontinence. Patient uses 500 mg of Keppra twice a day and levetiracetam 50 twice a day patient doesn't take His medications on regular basis as he cannot afford his medications patient doesn't take them on regular basis.EKG didn't show any significant debility from focus of seizure but there is some background slowing consistent with encephalopathy. Patient will evaluated by neurology. Eyes much cheaper than levetiracetam because of that reason plan was made to start him on Keppra thousand twice a day and patient is being discharged today. Patient denied any fever chills nausea vomiting abdominal pain dysuria. Review of Systems REVIEW OF SYSTEMS: CONSTITUTIONAL: No fever, no malaise, no fatigue. HEENT: No recent visual problems or hearing problems. Denied any sore throat. CARDIOVASCULAR: No chest pain, orthopnea, PND, no palpitations, no syncope. PULMONARY: No shortness of breath, no cough, no hemoptysis. GASTROINTESTINAL: No diarrhea, no nausea, no vomiting, no abdominal pain. NEUROLOGICAL: No headaches, no weakness, no numbness. HEMATOLOGICAL: Denies any bleeding or petechiae. GENITOURINARY: Denies any burning micturition, frequency, or urgency. MUSCULOSKELETAL/RHEUMATOLOGICAL: Denies any joint pain, swelling, or any muscle pain. ENDOCRINE: Denies any polyuria or polydipsia. The rest of the 14-point review of systems is negative. Past Medical History Past Medical History: Myocardial Infarction ([place]), Seizure Disorder Additional Past Medical History / Comment(s): ETOH abuse with past withdrawal DTs and seizures, R foot fracture 1 year ago-not healing properly, per Dr. Singer office visit note, pt seen 07/12/17 with perianal abscess. Last Myocardial Infarction Date:: 10/2018 History of Any Multi-Drug Resistant Organisms: None Reported Past Surgical History: No Surgical Hx Reported Additional Past Surgical History / Comment(s): Pt states he has never had surgery Past Anesthesia/Blood Transfusion Reactions: No Reported Reaction Additional Past Anesthesia/Blood Transfusion Reaction / Comment(s): "never received any blood transfusion" Past Psychological History: No Psychological Hx Reported Additional Psychological History / Comment(s): pt stated he drinks about 1 beers/day. started smoking at age 15 and has cut down to 1/2 ppd Smoking Status: Current every day smoker Past Alcohol Use History: Daily Additional Past Alcohol Use History / Comment(s): Drinks 1 beers/day. Last drink 05/06/19 Past Drug Use History: None Reported - Past Family History Father History Unknown: Yes Family Medical History: Diabetes Mellitus Additional Family Medical History / Comment(s): Father was an alcoholic. Mother History Unknown: Yes Family Medical History: Diabetes Mellitus Medications and Allergies Home Medications Medication Instructions Recorded Confirmed Type Aspirin 81 mg PO DAILY #30 chew 10/31/19 Rx Atorvastatin [Lipitor] 20 mg PO DAILY #30 tab 10/31/19 Rx levETIRAcetam [Keppra] 1,000 mg PO Q12HR #60 tab 10/31/19 Rx Allergies Allergy/AdvReac Type Severity Reaction Status Date / Time No Known Allergies Allergy Verified 10/30/19 18:22 Physical Exam Vitals: Vital Signs Temp Pulse Pulse Resp BP BP Pulse Ox 10/31/19 12:30 69 16 148/77 95 10/31/19 09:00 18 10/31/19 08:22 98.5 F 10/31/19 07:46 73 18 151/88 94 L 10/31/19 04:25 98.9 F 65 14 129/75 94 L 10/31/19 00:48 99.7 F H 16 133/75 96 10/30/19 21:10 99.6 F 80 16 129/72 94 L 10/30/19 20:55 16 10/30/19 17:44 98.9 F 78 18 147/93 94 L 10/30/19 16:30 82 18 146/86 93 L Intake and Output 10/31/19 10/31/19 10/31/19 06:59 14:59 22:59 Intake Total 590 240 Output Total 1400 Balance 590 -1160 Intake: Oral 590 240 Output: Urine 1400 Other: Voiding Method Urinal Urinal PHYSICAL EXAMINATION: GENERAL: The patient is alert and oriented x3, not in any acute distress. Well developed, well nourished. HEENT: Pupils are round and equally reacting to light. EOMI. No scleral icterus. No conjunctival pallor. Normocephalic, atraumatic. No pharyngeal erythema. No thyromegaly. CARDIOVASCULAR: S1 and S2 present. No murmurs, rubs, or gallops. PULMONARY: Chest is clear to auscultation, no wheezing or crackles. ABDOMEN: Soft, nontender, nondistended, normoactive bowel sounds. No palpable organomegaly. MUSCULOSKELETAL: No joint swelling or deformity. EXTREMITIES: No cyanosis, clubbing, or pedal edema. NEUROLOGICAL: Gross neurological examination did not reveal any focal deficits. SKIN: No rashes. Results CBC & Chem 7: 10/30/19 14:30 10/30/19 14:30 Labs: Abnormal Lab Results - Last 24 Hours (Table) 10/30/19 10/30/19 10/30/19 Range/Units 17:09 17:22 20:13 Plasma Lactic Acid Tommy 5.6 H* 2.8 H* (0.7-2.0) mmol/L Urine Protein 2+ H (Negative) Urine Ketones 1+ H (Negative) Urine Blood Moderate H (Negative) Ur Leukocyte Esterase Small H (Negative) Urine WBC 7 H (0-5) /hpf Urine Bacteria Rare H (None) /hpf Hyaline Casts 16 H (0-2) /lpf Urine Mucus Rare H (None) /hpf Thrombosis Risk Factor Assmnt - Choose All That Apply Each Risk Factor Represents 2 Points: Age 61-74 years Thrombosis Risk Factor Assessment Total Risk Factor Score: 2 Thrombosis Risk Factor Assessment Level: Low Risk Assessment and Plan Plan: -break through seizures: Secondary to noncompliance with medications.his noncompliance is due to his financial issues. Patient will be discharged on Keppra thousand twice a day. 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 -Nicotine abuse: Counseling was provided Alcohol abuse counseling was provided
[2019-10-31] MEDS ORDERED: LACOSAMIDE 50 MG TABLET PO SCH (21:00)
[2019-11-01 08:35] LABS: Levetiracetam (Keppra) <1.0 ug/mL (3.0-60.0)
== END 2019-10-31 17:10 | disposition home or self-care (01) ==
LOC: EC 14:07 → 1SOBS 17:42
PROVIDERS: ADMIT Internal Medicine; ATTEND Internal Medicine
DX: G40.909 Epilepsy, unspecified, not intractable, without status epilepticus (principal); R94.01 Abnormal electroencephalogram [EEG]; T42.6X6A Underdosing of other antiepileptic and sedative-hypnotic drugs, initial encounter; F17.210 Nicotine dependence, cigarettes, uncomplicated; F10.10 Alcohol abuse, uncomplicated; Z71.6 Tobacco abuse counseling; Z71.41 Alcohol abuse counseling and surveillance of alcoholic; Z91.120 Patient's intentional underdosing of medication regimen due to financial hardship; I25.2 Old myocardial infarction; S92.901G Unspecified fracture of right foot, subsequent encounter for fracture with delayed healing; Z03.818 Encounter for observation for suspected exposure to other biological agents ruled out; Z79.899 Other long term (current) drug therapy; Z87.19 Personal history of other diseases of the digestive system; Z86.73 Personal history of transient ischemic attack (TIA), and cerebral infarction without residual deficits; Z83.3 Family history of diabetes mellitus; Z81.1 Family history of alcohol abuse and dependence; Y92.9 Unspecified place or not applicable; X58.XXXD Exposure to other specified factors, subsequent encounter; Y90.9 Presence of alcohol in blood, level not specified
CPT/HCPCS: 96365; 96367; 96375; 99285; 36415; 95816; 93005; 80053; 80177; 83605; 83735 ×2; 84484; 85025; 85610; 85730; 81001; 87040; 80235; G0378 ×2; U0003; J1885; C9254; J1953

== ENCOUNTER 2019-12-06 03:21 | Emergency (ER) | payer MEDICARE ==
[2019-12-06] MEDS ORDERED: SODIUM CHLORIDE 0.9% 500 ML 500 ML IV STA (03:34)
[2019-12-06 04:09] VITALS: RESP 16
[2019-12-06 04:32] LABS: Basophils % (A) 0 %; Eosinophils # (A) 0.2 k/uL (0-0.7); Eosinophils % (A) 3 %; HCT 43.7 % (39.0-53.0); HGB 13.8 gm/dL (13.0-17.5); Lymphocytes # (A) 0.9 k/uL (1.0-4.8); Lymphocytes % (A) 11 %; MCH 30.6 pg (25.0-35.0); MCHC 31.7 g/dL (31.0-37.0); MCV 96.5 fL (80.0-100.0); Mean Platelet Volume 7.8; Monocytes # (A) 0.4 k/uL (0-1.0); Monocytes % (A) 5 %; Neutrophils # (A) 6.8 k/uL (1.3-7.7); Neutrophils % (A) 81 %; Platelet Count 210 k/uL (150-450); RBC 4.52 m/uL (4.30-5.90); RDW 13.2 % (11.5-15.5); WBC 8.4 k/uL (3.8-10.6)
--- NOTE | 2019-12-06 04:33 | ED ---
Seizure HPI - General Chief Complaint: Seizure Stated Complaint: Seizures Time Seen by Provider: 12/06/19 03:26 Source: EMS Mode of arrival: EMS Limitations: no limitations - History of Present Illness Initial Comments: This patient is 69-year-old man who presents for evaluation following seizure. The patient states that he has history of seizure disorder, and takes Keppra twice a day but he is not sure that he took both of his doses today. Patient states that he did not have an injury at as result of the seizure. He states that he is feeling sore but otherwise back at his baseline. MD Complaint: seizure Onset/Timin -: hour(s) Description of Episode: loss of consciousness, tonic-clonic movement -: second(s) Witnessed: yes - by bystander Trauma: No Seizure History: known seizure disorder, history of withdrawal seizures Associated Symptoms: denies other symptoms Treatments Prior to Arrival: none - Related Data Previous Rx's Medication Instructions Recorded Aspirin 81 mg PO DAILY #30 chew 10/31/19 Atorvastatin [Lipitor] 20 mg PO DAILY #30 tab 10/31/19 levETIRAcetam [Keppra] 1,000 mg PO Q12HR #60 tab 10/31/19 LORazepam [Ativan] 1 mg PO TID 3 Days #9 tab 12/06/19 Allergies Allergy/AdvReac Type Severity Reaction Status Date / Time No Known Allergies Allergy Verified 10/30/19 18:22 Review of Systems ROS Statement: Those systems with pertinent positive or pertinent negative responses have been documented in the HPI. ROS Other: All systems not noted in ROS Statement are negative. Constitutional: Denies: fever, chills, weakness Eyes: Denies: vision change Respiratory: Denies: cough, dyspnea Cardiovascular: Denies: chest pain, palpitations Gastrointestinal: Denies: abdominal pain, vomiting, diarrhea Musculoskeletal: Denies: back pain Skin: Denies: rash Neurological: Denies: headache, weakness Past Medical History Past Medical History: Myocardial Infarction ([place]), Seizure Disorder Additional Past Medical History / Comment(s): ETOH abuse with past withdrawal DTs and seizures, R foot fracture 1 year ago-not healing properly, per Dr. Singer office visit note, pt seen 07/12/17 with perianal abscess. Last Myocardial Infarction Date:: 10/2018 History of Any Multi-Drug Resistant Organisms: None Reported Past Surgical History: No Surgical Hx Reported Additional Past Surgical History / Comment(s): Pt states he has never had surgery Past Anesthesia/Blood Transfusion Reactions: No Reported Reaction Additional Past Anesthesia/Blood Transfusion Reaction / Comment(s): "never received any blood transfusion" Past Psychological History: No Psychological Hx Reported Past Alcohol Use History: Daily Past Drug Use History: None Reported - Past Family History Father History Unknown: Yes Family Medical History: Diabetes Mellitus Additional Family Medical History / Comment(s): Father was an alcoholic. Mother History Unknown: Yes Family Medical History: Diabetes Mellitus General Exam Limitations: no limitations General appearance: alert, in no apparent distress Head exam: Present: atraumatic, normocephalic Eye exam: Present: normal appearance, PERRL, EOMI. Absent: scleral icterus, conjunctival injection Respiratory exam: Present: normal lung sounds bilaterally. Absent: respiratory distress, wheezes, rales, rhonchi, stridor Cardiovascular Exam: Present: regular rate, normal rhythm, normal heart sounds. Absent: systolic murmur, diastolic murmur, rubs, gallop GI/Abdominal exam: Present: soft. Absent: distended, tenderness, guarding, rebound, rigid, mass Extremities exam: Present: normal inspection, normal capillary refill. Absent: pedal edema, calf tenderness Back exam: Present: normal inspection. Absent: CVA tenderness (R), CVA tenderness (L) Neurological exam: Present: alert, oriented X3, CN II-XII intact. Absent: motor sensory deficit Skin exam: Present: warm, dry, intact, normal color. Absent: rash Course Vital Signs 12/06/19 12/06/19 12/06/19 04:03 04:10 04:30 Pulse Rate 87 80 78 Respiratory 16 16 16 Rate Blood Pressure 90/65 90/65 111/86 O2 Sat by Pulse 91 L 91 L 94 L Oximetry 12/06/19 12/06/19 05:00 05:47 Pulse Rate 70 68 Respiratory 16 16 Rate Blood Pressure 111/86 131/88 O2 Sat by Pulse 95 98 Oximetry Medical Decision Making - Medical Decision Making Patient is 69-year-old man here following a generalized tonic-clonic seizure. He has had returned to his baseline. The patient is stable for discharge. Patient states she has been doing some drinking but is not manifesting signs or symptoms of withdrawal at this point. Vital signs are now normal with him awake and alert. Patient is not tremulous on the exam. - Lab Data Result diagrams: 12/06/19 04:13 12/06/19 04:13 Lab Results 12/06/19 12/06/19 12/06/19 Range/Units 04:13 04:13 04:13 WBC 8.4 (3.8-10.6) k/uL RBC 4.52 (4.30-5.90) m/uL Hgb 13.8 (13.0-17.5) gm/dL Hct 43.7 (39.0-53.0) % MCV 96.5 (80.0-100.0) fL MCH 30.6 (25.0-35.0) pg MCHC 31.7 (31.0-37.0) g/dL RDW 13.2 (11.5-15.5) % Plt Count 210 (150-450) k/uL Neutrophils % 81 % Lymphocytes % 11 % Monocytes % 5 % Eosinophils % 3 % Basophils % 0 % Neutrophils # 6.8 (1.3-7.7) k/uL Lymphocytes # 0.9 L (1.0-4.8) k/uL Monocytes # 0.4 (0-1.0) k/uL Eosinophils # 0.2 (0-0.7) k/uL Basophils # 0.0 (0-0.2) k/uL Sodium 137 (137-145) mmol/L Potassium 4.4 (3.5-5.1) mmol/L Chloride 105 (98-107) mmol/L Carbon Dioxide 21 L (22-30) mmol/L Anion Gap 11 mmol/L BUN 12 (9-20) mg/dL Creatinine 0.68 (0.66-1.25) mg/dL Est GFR (CKD-EPI)AfAm >90 (>60 ml/min/1.73 sqM) Est GFR (CKD-EPI)NonAf >90 (>60 ml/min/1.73 sqM) Glucose 141 H (74-99) mg/dL Calcium 9.1 (8.4-10.2) mg/dL Total Bilirubin 0.7 (0.2-1.3) mg/dL AST 33 (17-59) U/L ALT 22 (4-49) U/L Alkaline Phosphatase 49 (38-126) U/L Total Protein 7.1 (6.3-8.2) g/dL Albumin 4.2 (3.5-5.0) g/dL Urine Color Yellow Urine Appearance Clear (Clear) Urine pH 5.5 (5.0-8.0) Ur Specific Forbes 1.014 (1.001-1.035) Urine Protein 2+ H (Negative) Urine Glucose (UA) Negative (Negative) Urine Ketones Trace H (Negative) Urine Blood Small H (Negative) Urine Nitrite Negative (Negative) Urine Bilirubin Negative (Negative) Urine Urobilinogen <2.0 (<2.0) mg/dL Ur Leukocyte Esterase Negative (Negative) Urine RBC 2 (0-5) /hpf Urine WBC 3 (0-5) /hpf Hyaline Casts 12 H (0-2) /lpf Urine Mucus Rare H (None) /hpf Serum Alcohol <10 mg/dL - EKG Data -: EKG Interpreted by [facility] EKG shows normal: sinus rhythm, axis (normal), intervals, QRS complexes (normal), ST-T waves (normal) Rate: normal (Rate 82 bpm) Disposition Clinical Impression: Seizure Disposition: HOME SELF-CARE Condition: Good Instructions (If sedation given, give patient instructions): Recurrent Seizures in Adults (ED) Prescriptions: LORazepam [Ativan] 1 mg PO TID 3 Days #9 tab Is patient prescribed a controlled substance at d/c from ED?: Yes Referrals: Thony Singer MD [Primary Care Provider] - 1-2 days
[2019-12-06 04:41] LABS: AST 33 U/L (17-59); African American GFR (CKD) >90 (>60 ml/min/1.73 sqM); Albumin 4.2 g/dL (3.5-5.0); Alcohol <10 mg/dL; Alkaline Phosphatase 49 U/L (38-126); Anion Gap 11 mmol/L; Blood Urea Nitrogen 12 mg/dL (9-20); Calcium 9.1 mg/dL (8.4-10.2); Carbon Dioxide 21 mmol/L (22-30); Chloride 105 mmol/L (98-107); Glucose 141 mg/dL (74-99); Non-African American GFR(CKD) >90 (>60 ml/min/1.73 sqM); Potassium 4.4 mmol/L (3.5-5.1); Sodium 137 mmol/L (137-145); Total Bilirubin 0.7 mg/dL (0.2-1.3); Total Protein 7.1 g/dL (6.3-8.2)
[2019-12-06 04:42] LABS: Appearance,Urine Clear (Clear); Bilirubin,Urine Negative (Negative); Blood,Urine Small (Negative); Color,Urine Yellow; Glucose,Urine (UA) Negative (Negative); Hyaline Casts,Urine 12 /lpf (0-2); Ketones,Urine Trace (Negative); Leukocyte Esterase,Urine Negative (Negative); Mucus,Urine Rare /hpf; Nitrite,Urine Negative (Negative); PH, Urine 5.5 (5.0-8.0); Protein,Urine 2+ (Negative); RBC,Urine 2 /hpf (0-5); Specific Gravity,Urine 1.014 (1.001-1.035); Urobilinogen,Urine <2.0 mg/dL (<2.0); WBC,Urine 3 /hpf (0-5)
[2019-12-06 04:47] LABS: ALT 22 U/L (4-49)
[2019-12-06 05:48] VITALS: BP 131/88; PULSE 68
== END 2019-12-06 06:20 | disposition home or self-care (01) ==
LOC: EC 03:21
DX: G40.909 Epilepsy, unspecified, not intractable, without status epilepticus (principal); I25.2 Old myocardial infarction
CPT/HCPCS: 36415; 93005; 80053; 85025; 81001; 99284; G0480; 80320

== ENCOUNTER 2020-01-08 01:55 | Inpatient (IN) | payer MEDICARE ==
[2020-01-08] MEDS ORDERED: LORazepam 2 MG/ML INJ IM STA (02:23)
[2020-01-08 03:01] LABS: Glucose,Whole Blood 173 mg/dL (75-99)
[2020-01-08] MEDS ORDERED: levETIRAcetam 500 MG TAB PO STA (03:08)
[2020-01-08 03:28] LABS: Basophils # (A) 0.1 k/uL (0-0.2); Basophils % (A) 1 %; Eosinophils # (A) 0.1 k/uL (0-0.7); Eosinophils % (A) 1 %; HCT 49.7 % (39.0-53.0); HGB 14.9 gm/dL (13.0-17.5); Hypochromasia Slight; Lymphocytes % (A) 20 %; MCH 30.4 pg (25.0-35.0); MCHC 30.1 g/dL (31.0-37.0); MCV 101.1 fL (80.0-100.0); Mean Platelet Volume 8.4; Monocytes % (A) 7 %; Neutrophils # (A) 10.6 k/uL (1.3-7.7); Neutrophils % (A) 69 %; Platelet Count 206 k/uL (150-450); RBC 4.91 m/uL (4.30-5.90); RDW 13.3 % (11.5-15.5); WBC 15.3 k/uL (3.8-10.6)
[2020-01-08 03:44] LABS: AST 41 U/L (17-59); African American GFR (CKD) >90 (>60 ml/min/1.73 sqM); Albumin 5.2 g/dL (3.5-5.0); Alcohol <10 mg/dL; Alkaline Phosphatase 61 U/L (38-126); Anion Gap 28 mmol/L; Blood Urea Nitrogen 10 mg/dL (9-20); Calcium 9.4 mg/dL (8.4-10.2); Carbon Dioxide 11 mmol/L (22-30); Chloride 101 mmol/L (98-107); Glucose 179 mg/dL (74-99); Non-African American GFR(CKD) >90 (>60 ml/min/1.73 sqM); Potassium 3.8 mmol/L (3.5-5.1); Sodium 140 mmol/L (137-145); Total Bilirubin 1.1 mg/dL (0.2-1.3); Total Protein 8.7 g/dL (6.3-8.2)
[2020-01-08 03:50] LABS: ALT 22 U/L (4-49)
--- NOTE | 2020-01-08 04:05 | ED ---
Seizure HPI - General Chief Complaint: Seizure Stated Complaint: seizure Time Seen by Provider: 01/08/20 02:14 Source: EMS Mode of arrival: EMS Limitations: no limitations - History of Present Illness Initial Comments: This patient is a 69-year-old man with history of seizures and also reportedly of alcohol withdrawal seizures. He had called EMS because she felt like a seizure was coming on. Patient states that he will get a metallic taste and then other sensations and then he often has seizure following. EMS brought the patient in and noticed that he appeared to have bedbugs on him. The patient was taken to the decontamination room and it was being showered he then developed seizure activity. Patient was given Ativan. I then went and interviewed the patient he is starting to become alert and appropriate. He is denying any injury. MD Complaint: seizure, feel seizure coming on -: minutes(s) Witnessed: yes - by bystander Trauma: No Seizure History: known seizure disorder, history of withdrawal seizures Associated Symptoms: denies other symptoms Treatments Prior to Arrival: none - Related Data Home Medications Medication Instructions Recorded Confirmed Lacosamide [Vimpat] 50 mg PO BID 01/08/20 01/08/20 levETIRAcetam [Keppra] 500 mg PO Q12HR 01/08/20 01/08/20 Previous Rx's Medication Instructions Recorded chlordiazePOXIDE HCl [Librium] 25 mg PO TID 3 Days #9 capsule 01/08/20 Allergies Allergy/AdvReac Type Severity Reaction Status Date / Time No Known Allergies Allergy Verified 01/08/20 06:59 Review of Systems ROS Statement: Those systems with pertinent positive or pertinent negative responses have been documented in the HPI. ROS Other: All systems not noted in ROS Statement are negative. Constitutional: Denies: fever, chills Eyes: Denies: vision change Respiratory: Denies: cough, dyspnea Cardiovascular: Denies: chest pain, palpitations Gastrointestinal: Denies: abdominal pain, vomiting, diarrhea Musculoskeletal: Denies: back pain Skin: Denies: rash Neurological: Denies: headache, weakness, numbness, paresthesias Hematological/Lymphatic: Denies: easy bleeding Past Medical History Past Medical History: Myocardial Infarction ([place]), Seizure Disorder Additional Past Medical History / Comment(s): ETOH abuse with past withdrawal DTs and seizures, R foot fracture 1 year ago-not healing properly, per Dr. Singer office visit note, pt seen 07/12/17 with perianal abscess. Last Myocardial Infarction Date:: 10/2018 History of Any Multi-Drug Resistant Organisms: None Reported Past Surgical History: No Surgical Hx Reported Additional Past Surgical History / Comment(s): Pt states he has never had surgery Past Anesthesia/Blood Transfusion Reactions: No Reported Reaction Additional Past Anesthesia/Blood Transfusion Reaction / Comment(s): "never received any blood transfusion" Past Psychological History: No Psychological Hx Reported Smoking Status: Current every day smoker Past Alcohol Use History: Daily Past Drug Use History: None Reported - Past Family History Father History Unknown: Yes Family Medical History: Diabetes Mellitus Additional Family Medical History / Comment(s): Father was an alcoholic. Mother History Unknown: Yes Family Medical History: Diabetes Mellitus General Exam Limitations: no limitations General appearance: alert, in no apparent distress Head exam: Present: atraumatic, normocephalic Eye exam: Present: normal appearance, PERRL, EOMI, nystagmus. Absent: scleral icterus, conjunctival injection ENT exam: Present: normal oropharynx Neck exam: Present: normal inspection, full ROM Respiratory exam: Present: normal lung sounds bilaterally. Absent: respiratory distress, wheezes, rales, rhonchi, stridor, chest wall tenderness Cardiovascular Exam: Present: regular rate, normal rhythm, normal heart sounds. Absent: systolic murmur, diastolic murmur, rubs, gallop GI/Abdominal exam: Present: soft. Absent: distended, tenderness, guarding, rebound, rigid Extremities exam: Present: normal inspection, normal capillary refill. Absent: pedal edema, calf tenderness Back exam: Present: normal inspection. Absent: CVA tenderness (R), CVA tenderness (L) Neurological exam: Present: alert, oriented X3, CN II-XII intact, other (Intention tremor). Absent: motor sensory deficit Psychiatric exam: Absent: suicidal ideation Skin exam: Present: warm, dry, intact, normal color. Absent: rash Course Vital Signs 01/08/20 01/08/20 01/08/20 02:32 03:43 04:00 Temperature 97.4 F L Pulse Rate 96 80 86 Respiratory 19 16 19 Rate Blood Pressure 124/82 111/73 151/99 O2 Sat by Pulse 96 93 L 94 L Oximetry 09/14/20 09/14/20 05:15 06:47 Temperature 98.3 F 98.4 F Pulse Rate 87 88 Respiratory 19 19 Rate Blood Pressure 147/92 143/97 O2 Sat by Pulse 94 L 94 L Oximetry Medical Decision Making - Medical Decision Making This patient is 69-year-old man brought in for evaluation by ambulance as she felt a seizure was impending. The patient did have seizure just prior to my evaluation. He is already alert and answering questions. Patient's workup unremarkable. However when we were attempting to discharge him the patient is barely able to stand and is very tremulous. His blood pressure is beginning to increase and he does appear to be impending DTs. We will admit the patient for Ativan protocol and also for social work consult regarding his discharge situation. - Lab Data Result diagrams: 01/08/20 03:15 01/08/20 03:15 Lab Results 01/08/20 01/08/20 01/08/20 Range/Units 02:58 03:15 03:15 WBC 15.3 H (3.8-10.6) k/uL RBC 4.91 (4.30-5.90) m/uL Hgb 14.9 (13.0-17.5) gm/dL Hct 49.7 (39.0-53.0) % MCV 101.1 H (80.0-100.0) fL MCH 30.4 (25.0-35.0) pg MCHC 30.1 L (31.0-37.0) g/dL RDW 13.3 (11.5-15.5) % Plt Count 206 (150-450) k/uL Neutrophils % 69 % Lymphocytes % 20 % Monocytes % 7 % Eosinophils % 1 % Basophils % 1 % Neutrophils # 10.6 H (1.3-7.7) k/uL Lymphocytes # 3.0 (1.0-4.8) k/uL Monocytes # 1.0 (0-1.0) k/uL Eosinophils # 0.1 (0-0.7) k/uL Basophils # 0.1 (0-0.2) k/uL Hypochromasia Slight Sodium 140 (137-145) mmol/L Potassium 3.8 (3.5-5.1) mmol/L Chloride 101 (98-107) mmol/L Carbon Dioxide 11 L (22-30) mmol/L Anion Gap 28 mmol/L BUN 10 (9-20) mg/dL Creatinine 0.83 (0.66-1.25) mg/dL Est GFR (CKD-EPI)AfAm >90 (>60 ml/min/1.73 sqM) Est GFR (CKD-EPI)NonAf >90 (>60 ml/min/1.73 sqM) Glucose 179 H (74-99) mg/dL POC Glucose (mg/dL) 173 H (75-99) mg/dL POC Glu [employer] ID Charles Holley Calcium 9.4 (8.4-10.2) mg/dL Total Bilirubin 1.1 (0.2-1.3) mg/dL AST 41 (17-59) U/L ALT 22 (4-49) U/L Alkaline Phosphatase 61 (38-126) U/L Total Protein 8.7 H (6.3-8.2) g/dL Albumin 5.2 H (3.5-5.0) g/dL Serum Alcohol <10 mg/dL - EKG Data -: EKG Interpreted by [facility] EKG shows normal: sinus rhythm, axis (Normal), intervals (Normal), QRS complexes (Normal) Rate: normal (Rate 95 bpm) Interpretation: nonspecific ST-T wave changes Disposition Clinical Impression: Seizure, Alcohol withdrawal Disposition: ADMITTED IP TO THIS [facility] Condition: Good Instructions (If sedation given, give patient instructions): Recurrent Seizures in Adults (ED) Prescriptions: chlordiazePOXIDE HCl [Librium] 25 mg PO TID 3 Days #9 capsule Is patient prescribed a controlled substance at d/c from ED?: No Referrals: Thony Singer MD [Primary Care Provider] - 1-2 days
[2020-01-08] MEDS ORDERED: LORazepam 2 MG/ML INJ IV STA (05:46)
--- NOTE | 2020-01-08 07:04 | CT ---
EXAMINATION TYPE: CT brain wo con DATE OF EXAM: 01/08/2020 COMPARISON: 05/06/2019 HISTORY: seizure CT DLP: 1142 mGycm Automated exposure control for dose reduction was used. There is some cerebral cortical atrophy. There is no mass effect nor midline shift. There is no sign of intracranial hemorrhage. There is 3 cm area of grade white matter hypodensity right posterior bunny etal lobe consistent with old infarct. The calvarium is intact. Skull base is intact. Ventricles have normal size. 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 Cerebral atrophy. No acute intracranial abnor mality.
[2020-01-08] MEDS ORDERED: NALOXONE 0.4 MG/ML 1 ML VIAL IV PRN (07:13)
[2020-01-08] MEDS ORDERED: THIAMINE 100 MG/ML 2 ML VIAL IM STA (07:15)
[2020-01-08] MEDS ORDERED: LORazepam 2 MG/ML INJ IV PRN ×2 (07:15)
[2020-01-08] MEDS ORDERED: ACETAMINOPHEN TAB 325 MG TAB PO PRN (09:10)
[2020-01-08] MEDS ORDERED: PNEUMOCOCCAL VACC-PNEUMOVAX 23 25 MCG/0.5 ML VIAL IM ONE (09:18)
--- NOTE | 2020-01-08 11:42 | XR ---
EXAMINATION TYPE: XR chest 2V DATE OF EXAM: 01/08/2020 COMPARISON: 12/16/2018 HISTORY: Shortness of breath TECHNIQUE: Frontal and lateral views of the chest are obtained. FINDINGS: Scattered senescent parenchymal changes noted. Hyperinflation compatible with COPD. No evidence for infiltrate. No evidence for atelectasis. Heart size is stable. Mediastinal structures are stable and grossly unremarkable. No evidence for hilar prominence. Degenerative changes dorsal spine. IMPRESSION: 1. No evidence for acute pulmonary disease.
[2020-01-08 12:13] LABS: Amorphous Sediment,Urine Rare /hpf; Appearance,Urine Cloudy (Clear); Bacteria,Urine Rare /hpf; Bilirubin,Urine Negative (Negative); Blood,Urine Trace (Negative); Color,Urine Light Yellow; Glucose,Urine (UA) Negative (Negative); Ketones,Urine Negative (Negative); Leukocyte Esterase,Urine Trace (Negative); Mucus,Urine Rare /hpf; Nitrite,Urine Negative (Negative); PH, Urine 7.5 (5.0-8.0); Protein,Urine Negative (Negative); RBC,Urine 3 /hpf (0-5); Specific Gravity,Urine 1.004 (1.001-1.035); Urobilinogen,Urine <2.0 mg/dL (<2.0); WBC,Urine 4 /hpf (0-5)
--- NOTE | 2020-01-08 12:45 | P.HPIM ---
History of Present Illness [id number] the is being admitted for seizure as per the ER note says patient is being admitted for alcohol withdrawal seizures although patient denied any alcohol significant alcohol use to me. Patient had are like symptoms which is bad taste in the mouth and the tingling and numbness in the right side of the body followed by seizure-like activity although patient is aware of the ventilator was didn't lose consciousness. Have any tongue biting and denied any loss of bowel or bladder continence. Patient follows up with the Dr. Longoria neurologist as an outpatient who diagnosed with seizure disorder about 4 years ago patient is on Keppra and Vimpat for seizures. Patient is also on Librium. Patient had a low-grade fever. 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 Patient does have leukocytosis does have fever as well although patient the denied any significant cough with sputum production or dysuria, chest x-ray and he is not impressive for urinary tract infection although there is some rare bacteria and trace leukocyte esterase but patient doesn't have any symptoms of UTI. Coronavirus will be ruled out as well Review of Systems REVIEW OF SYSTEMS: CONSTITUTIONAL: no malaise, no fatigue. HEENT: No recent visual problems or hearing problems. Denied any sore throat. CARDIOVASCULAR: No chest pain, orthopnea, PND, no palpitations, no syncope. PULMONARY: No shortness of breath, no cough, no hemoptysis. GASTROINTESTINAL: No diarrhea, no nausea, no vomiting, no abdominal pain. NEUROLOGICAL: No headaches, no weakness HEMATOLOGICAL: Denies any bleeding or petechiae. GENITOURINARY: Denies any burning micturition, frequency, or urgency. MUSCULOSKELETAL/RHEUMATOLOGICAL: Denies any joint pain, swelling, or any muscle pain. ENDOCRINE: Denies any polyuria or polydipsia. The rest of the 14-point review of systems is negative. Past Medical History Past Medical History: Myocardial Infarction ([place]), Pneumonia, Seizure Disorder Additional Past Medical History / Comment(s): ETOH abuse with past withdrawal DTs and seizures, last seizure 01/08/20, pt states he is a fall hazard but has not fallen in past 6 months, pt states he had a "slight" MO approximately 2-3 years ago and was seen at [facility] and shipped to [facility] but states had no cardiac intervention, past R foot fracture which did not heal, past perianal abscess, Last Myocardial Infarction Date:: 2017 History of Any Multi-Drug Resistant Organisms: None Reported Past Surgical History: No Surgical Hx Reported Additional Past Surgical History / Comment(s): Pt states he has never had surgery Past Anesthesia/Blood Transfusion Reactions: No Reported Reaction Additional Past Anesthesia/Blood Transfusion Reaction / Comment(s): "never received any blood transfusions" Smoking Status: Current every day smoker - Past Family History Father History Unknown: Yes Family Medical History: Diabetes Mellitus Additional Family Medical History / Comment(s): Father was an alcoholic. Mother History Unknown: Yes Family Medical History: Diabetes Mellitus Medications and Allergies Home Medications Medication Instructions Recorded Confirmed Type Lacosamide [Vimpat] 50 mg PO BID 01/08/20 01/08/20 History chlordiazePOXIDE HCl [Librium] 25 mg PO TID 3 Days #9 capsule 01/08/20 Rx levETIRAcetam [Keppra] 500 mg PO Q12HR 01/08/20 01/08/20 History Allergies Allergy/AdvReac Type Severity Reaction Status Date / Time No Known Allergies Allergy Verified 01/08/20 06:59 Physical Exam Vitals: Vital Signs Temp Pulse Resp BP Pulse Ox 01/08/20 09:00 100.1 F H 86 19 137/84 94 L 01/08/20 06:47 98.4 F 88 19 143/97 94 L 01/08/20 05:15 98.3 F 87 19 147/92 94 L 01/08/20 04:00 86 19 151/99 94 L 01/08/20 03:43 80 16 111/73 93 L 01/08/20 02:32 97.4 F L 96 19 124/82 96 Intake and Output 01/07/20 01/08/20 01/08/20 22:59 06:59 14:59 Other: Weight 83.915 kg 83.915 kg PHYSICAL EXAMINATION: GENERAL: The patient is alert and oriented x3, not in any acute distress. Well developed, well nourished. Patient does have some tremor HEENT: Pupils are round and equally reacting to light. EOMI. No scleral icterus. No conjunctival pallor. Normocephalic, atraumatic. No pharyngeal erythema. No thyromegaly. CARDIOVASCULAR: S1 and S2 present. No murmurs, rubs, or gallops. PULMONARY: Chest is clear to auscultation, no wheezing or crackles. ABDOMEN: Soft, nontender, nondistended, normoactive bowel sounds. No palpable organomegaly. MUSCULOSKELETAL: No joint swelling or deformity. EXTREMITIES: No cyanosis, clubbing, or pedal edema. NEUROLOGICAL: Gross neurological examination did not reveal any focal deficits. SKIN: No rashes. Results CBC & Chem 7: 01/08/20 03:15 01/08/20 03:15 Labs: Abnormal Lab Results - Last 24 Hours (Table) 01/08/20 01/08/20 01/08/20 Range/Units 02:58 03:15 03:15 WBC 15.3 H (3.8-10.6) k/uL MCV 101.1 H (80.0-100.0) fL MCHC 30.1 L (31.0-37.0) g/dL Neutrophils # 10.6 H (1.3-7.7) k/uL Carbon Dioxide 11 L (22-30) mmol/L Glucose 179 H (74-99) mg/dL POC Glucose (mg/dL) 173 H (75-99) mg/dL Total Protein 8.7 H (6.3-8.2) g/dL Albumin 5.2 H (3.5-5.0) g/dL Urine Blood (Negative) Ur Leukocyte Esterase (Negative) Amorphous Sediment (None) /hpf Urine Bacteria (None) /hpf Urine Mucus (None) /hpf 01/08/20 Range/Units 11:30 WBC (3.8-10.6) k/uL MCV (80.0-100.0) fL MCHC (31.0-37.0) g/dL Neutrophils # (1.3-7.7) k/uL Carbon Dioxide (22-30) mmol/L Glucose (74-99) mg/dL POC Glucose (mg/dL) (75-99) mg/dL Total Protein (6.3-8.2) g/dL Albumin (3.5-5.0) g/dL Urine Blood Trace H (Negative) Ur Leukocyte Esterase Trace H (Negative) Amorphous Sediment Rare H (None) /hpf Urine Bacteria Rare H (None) /hpf Urine Mucus Rare H (None) /hpf Thrombosis Risk Factor Assmnt - Choose All That Apply Any of the Below Risk Factors Present?: Yes Other Risk Factors: Yes Each Risk Factor Represents 2 Points: Age 61-74 years Other congenital or acquired thrombophilia - If yes, enter type in comment: No Thrombosis Risk Factor Assessment Total Risk Factor Score: 2 Thrombosis Risk Factor Assessment Level: Low Risk Assessment and Plan Plan: -Possible seizures: Patient does appear to have or but the clinical symptomatology is not clear that he had a seizure. EEG will be ordered and neurology will be consulted. Unsure whether patient has alcohol withdrawal seizures at as per the documentation patient has 2 beers a day and he denied any significant alcohol abuse history to me. Patient will be monitored for alcohol withdrawal and is already on Ativan CW protocol which will be continued. Keppra levels are being obtained -Right-sided tingling numbness can be secondary to seizure but we also need to rule out any TIA. I will [address] of the head did not show any significant abnormality and I will leave the rest of workup for neurology. -Fever without any clear evidence of infection at this time patient will be monitored without antibiotics -Leukocytosis: Reactive secondary to seizures -Continued nicotine use: Counseling was provided -DVT prophylaxis: Subcutaneous heparin
[2020-01-08] MEDS: ASPIRIN 81 MG PO SCH (14:49)
[2020-01-08] MEDS: LORazepam 2 MG/ML INJ IV PRN (14:56)
--- NOTE | 2020-01-08 15:26 | EEG ---
ELECTROENCEPHALOGRAM REPORT DATE OF SERVICE: 01/08/2020 PREAMBLE: This is a 69-year-old male with history of seizure disorder. EEG FINDINGS: This is a 21 channel routine EEG recording in a patient utilizing 10-20 international system with referential and bipolar montages. The background consists of well developed, well regulated, moderate voltage activity in mixed frequencies of 9- 10 hertz alpha with some low-voltage fast frequency beta activity. The background seems to be minimally reactive to eye opening and closing. Photic driving response was not seen. There is very frequent low amplitude focal slowing over the right temporal region. The different stages of sleep were not seen. No definitive focal or generalized epileptiform activity was seen. IMPRESSION: This is an abnormal EEG due to the presence of focal slowing over the right temporal region. This is suggestive of focal cortical neuronal dysfunction, which may be related to underlying structural abnormality or can be related to postictal slowing. No obvious epileptiform activity was seen. MMEUNICEL / IJN: [id number] / SUE
[2020-01-08] MEDS: THIAMINE 100 MG TAB PO SCH (16:56)
[2020-01-08] MEDS ORDERED: LACOSAMIDE 50 MG TABLET PO SCH (21:00)
[2020-01-08] MEDS ORDERED: levETIRAcetam 500 MG TAB PO SCH (21:00)
--- NOTE | 2020-01-08 21:42 | P.CNNES ---
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 Patient has history of seizure disorder and reportedly of alcohol withdrawal seizures for the past 5 years. Patient also has history of stroke right parietal temporal region in August 2017. Patient was seen by myself on 10/31/2023 similar presentation. Patient was shaking early this morning, felt as if "seizure was coming on". He was also noticing metallic taste in the mouth, which could be a seizure aura. Patient's girlfriend got concerned and called the ambulance and patient was brought to the hospital. Patient was noted to have bedbugs. He was given a shower in the ER, and then he developed seizure activity witnessed in the ER. Patient was given Ativan. Patient had a post ictal state thereafter and was admitted for further evaluation. CT head showed old right posterior parietal cortical infarct unchanged. Cerebral atrophy. EKG shows normal sinus rhythm. Patient's blood test shows WBC 15.3 hemoglobin 14.9 with elevated MCV 101.1 and platelets 206. Chem-20 is normal. UA negative blood alcohol level negative. Patient states that he drinks 2 cans of beer per day, max 3-4 cans per day. Patient states he had a stroke 6-8 months ago, although on review of records, it happened in August 2017. I spoke to patient's girlfriend Kelly who knows about the dose of his seizure medication. Confirmed, patient is taking Vimpat 50 mg twice a day and Keppra 500 mg twice a day. He did not make adjustment in the seizure medication as was recommended on the last admission 10/31/2019. Patient's girlfriend also mentioned that he drinks 6 beer on Wednesday night through Wednesday morning. He probably withdrew from alcohol on Wednesday level vial inspector and tester leading to the seizure. Patient follows up with Dr. Longoria. Patient has an appointment with his neurologist on 01/22/2020. Patient's girlfriend states that his last seizure was in October 2019. Review of Systems Denies headache, problem with the vision, denies chest pain shortness of breath wheezing or cough. Denies abdominal pain nausea vomiting diarrhea. All other review of systems unremarkable. Past Medical History Past Medical History: Myocardial Infarction ([place]), Pneumonia, Seizure Disorder Additional Past Medical History / Comment(s): ETOH abuse with past withdrawal DTs and seizures, last seizure 01/08/20, pt states he is a fall hazard but has not fallen in past 6 months, pt states he had a "slight" CA approximately 2-3 years ago and was seen at [facility] and shipped to [facility] but states had no cardiac intervention, past R foot fracture which did not heal, past perianal abscess, Last Myocardial Infarction Date:: 2017 History of Any Multi-Drug Resistant Organisms: None Reported Past Surgical History: No Surgical Hx Reported Additional Past Surgical History / Comment(s): Pt states he has never had surgery Past Anesthesia/Blood Transfusion Reactions: No Reported Reaction Additional Past Anesthesia/Blood Transfusion Reaction / Comment(s): "never received any blood transfusions" Smoking Status: Current every day smoker - Past Family History Father History Unknown: Yes Family Medical History: Diabetes Mellitus Additional Family Medical History / Comment(s): Father was an alcoholic. Mother History Unknown: Yes Family Medical History: Diabetes Mellitus Medications and Allergies Home Medications Medication Instructions Recorded Confirmed Type Lacosamide [Vimpat] 50 mg PO BID 01/08/20 01/08/20 History chlordiazePOXIDE HCl [Librium] 25 mg PO TID 3 Days #9 capsule 01/08/20 Rx levETIRAcetam [Keppra] 500 mg PO Q12HR 01/08/20 01/08/20 History Allergies Allergy/AdvReac Type Severity Reaction Status Date / Time No Known Allergies Allergy Verified 01/08/20 06:59 Physical Examination - Vital Signs Vital Signs: Vital Signs Temp Pulse Resp BP Pulse Ox 01/08/20 09:00 100.1 F H 86 19 137/84 94 L 01/08/20 06:47 98.4 F 88 19 143/97 94 L 01/08/20 05:15 98.3 F 87 19 147/92 94 L 01/08/20 04:00 86 19 151/99 94 L 01/08/20 03:43 80 16 111/73 93 L 01/08/20 02:32 97.4 F L 96 19 124/82 96 Intake and Output 01/08/20 01/08/20 01/08/20 06:59 14:59 22:59 Intake Total 480 Output Total 575 Balance 480 -575 Intake: Oral 480 Output: Urine 575 Other: # Voids 3 2 Weight 83.915 kg 83.915 kg On examination patient is an elderly male, in no acute distress he is alert and awake. He knows it is December 2019 although he thinks it is the th of the . He knows name of the hospital and that he is in [facility] and name of the current president. Speech and language functions are normal. Attention and concentration fund of knowledge is slightly limited. Detail testing deferred. On cranial examination pupils are round and reactive to light, visual hallman are full on confrontation, extraocular muscles are intact with no nystagmus. Face is symmetric, tongue protrudes to the midline. Palatal elevation and sensation normal. Hearing and shoulder shrug normal. On muscle strength testing there is no pronator drift and the strength is normal in arms and legs distally and proximally. Reflexes are 1+ and plantars downgoing. Sensory to touch is equal. No ataxia for [id number] testing. His tone and bulk of muscles normal. Gait deferred. No obvious bruit, S1 and S2 a udible, asked chest is clear abnormal soft nontender. No peripheral edema. Results - Laboratory Findings CBC and BMP: 01/08/20 03:15 01/08/20 03:15 Abnormal Lab Findings: Abnormal Labs 01/08/20 01/08/20 01/08/20 02:58 03:15 03:15 WBC 15.3 H MCV 101.1 H MCHC 30.1 L Neutrophils # 10.6 H Carbon Dioxide 11 L Glucose 179 H POC Glucose (mg/dL) 173 H Total Protein 8.7 H Albumin 5.2 H Urine Blood Ur Leukocyte Esterase Amorphous Sediment Urine Bacteria Urine Mucus 01/08/20 11:30 WBC MCV MCHC Neutrophils # Carbon Dioxide Glucose POC Glucose (mg/dL) Total Protein Albumin Urine Blood Trace H Ur Leukocyte Esterase Trace H Amorphous Sediment Rare H Urine Bacteria Rare H Urine Mucus Rare H Assessment and Plan Assessment: * Seizure disorder, came with breakthrough seizures likely due to alcoholism. 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 * Alcoholism. Plan: * Patient had an EEG performed, which again revealed focal slowing in the right temporal region. No epileptiform activity was seen. Focal slowing could be related to post ictal state/slowing. * We will increase Vimpat to 100 mg twice a day and Keppra 750 mg twice a day. * Recommended abstinence from alcohol. * Patient's girlfriend informed that patient should not be driving for 6 months, operate dangerous machinery, climbing ladders or unsupervised swimming. * Patient has an appointment with his neurologist on 01/22/2020. * Patient will be cleared neurologically in the morning if he stays stable overnight.
[2020-01-08] MEDS: levETIRAcetam 250 MG TAB PO SCH (22:31)
[2020-01-08] MEDS: LACOSAMIDE 50 MG TABLET PO SCH (22:31)
[2020-01-09 04:44] LABS: HCT 43.3 % (39.0-53.0); HGB 13.9 gm/dL (13.0-17.5); MCHC 32.2 g/dL (31.0-37.0); MCV 96.3 fL (80.0-100.0); Mean Platelet Volume 8.2; Platelet Count 165 k/uL (150-450); RBC 4.49 m/uL (4.30-5.90); RDW 13.2 % (11.5-15.5); WBC 10.5 k/uL (3.8-10.6)
[2020-01-09 04:52] VITALS: RESP 16
[2020-01-09] MEDS: levETIRAcetam 250 MG TAB PO SCH (08:16)
[2020-01-09] MEDS: THIAMINE 100 MG TAB PO SCH (08:16)
[2020-01-09] MEDS: ASPIRIN 81 MG PO SCH (08:16)
[2020-01-09] MEDS: LACOSAMIDE 50 MG TABLET PO SCH (08:16)
[2020-01-09] MEDS: LORazepam 2 MG/ML INJ IV PRN (08:22)
[2020-01-09] MEDS ORDERED: ENOXAPARIN 40 MG/0.4 ML SYRINGE SQ SCH (09:00)
[2020-01-09 10:29] LABS: African American GFR (CKD) 106.4 (60.0-200.0); Anion Gap 7.7 mmol/L (4.00-12.00); BUN/Creat Ratio 17.5 Ratio (12.00-20.00); Calcium 9.5 mg/dL (8.7-10.3); Carbon Dioxide 29.3 mmol/L (21.6-31.8); Non-African American GFR(CKD) 91.8 (60.0-200.0); Potassium 4.1 mmol/L (3.5-5.5)
[2020-01-09 12:19] VITALS: BP 118/79; PULSE 72; TEMP 98.3
--- NOTE | 2020-01-09 13:13 | P.DS ---
Providers Date of admission: 01/08/20 07:13 Attending physician: Mitch Costa Consults: 01/08/20 12:38 Consult Physician Routine Consulting Provider: Gladys Leal Consult Reason/Comments: Possible seizures Do you want consulting provider notified?: Yes Primary care physician: Lucrecia Coleman [facility] Course: 69-year-old the is being admitted for seizure as per the ER note says patient is being admitted for alcohol withdrawal seizures although patient denied any alcohol significant alcohol use to me. Patient had are like symptoms which is bad taste in the mouth and the tingling and numbness in the right side of the body followed by seizure-like activity although patient is aware of the ventilator was didn't lose consciousness. Have any tongue biting and denied any loss of bowel or bladder continence. Patient follows up with the Dr. Longoria neurologist as an outpatient who diagnosed with seizure disorder about 4 years ago patient is on Keppra and Vimpat for seizures. Patient is also on Librium. Patient had a low-grade fever. 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 Patient does have leukocytosis does have fever as well although patient the denied any significant cough with sputum production or dysuria, chest x-ray and he is not impressive for urinary tract infection although there is some rare bacteria and trace leukocyte esteras e but patient doesn't have any symptoms of UTI. Coronavirus will be ruled out as well. 01/09/2020 Patient was evaluated by neurology and patient had an EEG didn't show any seizure focus but there is some slowing in the temporal area significant with encephalopathy. Keppra levels are still pending patient leukocytosis improved. Patient's symptomatology of follow like symptoms doesn't appear to be ROS patient is still complaining of the symptoms which is not followed by seizure. An EEG didn't show any seizure focus. Patient still has some tremor only received Ativan once today. That because of the tremors. Patient doesn't have any significant withdrawal symptoms at this time. Patient will be discharged today with increased the dose of Keppra and Vimpat as recommended by neurology neurology cleared for discharge patient will follow with his neurologist as an outpatient PHYSICAL EXAMINATION: GENERAL: The patient is alert and oriented x3, not in any acute distress. Well developed, well nourished. Patient does have some tremor HEENT: Pupils are round and equally reacting to light. EOMI. No scleral icterus. No conjunctival pallor. Normocephalic, atraumatic. No pharyngeal erythema. No thyromegaly. CARDIOVASCULAR: S1 and S2 present. No murmurs, rubs, or gallops. PULMONARY: Chest is clear to auscultation, no wheezing or crackles. ABDOMEN: Soft, nontender, nondistended, normoactive bowel sounds. No palpable organomegaly. MUSCULOSKELETAL: No joint swelling or deformity. EXTREMITIES: No cyanosis, clubbing, or pedal edema. NEUROLOGICAL: Gross neurological examination did not reveal any focal deficits. SKIN: No rashes. Assessment and Plan Plan: -Possible seizures: Patient was evaluated for breakthrough seizures although this is not evident on the EEG. Neurology validate the patient and dose of Keppra and the Vimpat are being changed and patient will be discharged. Patient still has some tremor -All call withdrawal: No significant alcohol withdrawal symptoms at this time -Right-sided tingling numbness patient doesn't appear to have any stroke neurology evaluated the patient -Fever without any clear evidence of infection at this time, patient had low- grade fevers on admission which resolved at this time septic workup is negative -Leukocytosis: Reactive improved now -Continued nicotine use: Counseling was provided Patient Condition at Discharge: Good Plan - Discharge Summary Discharge Rx Participant: No New Discharge Prescriptions: New chlordiazePOXIDE HCl [Librium] 25 mg PO TID 3 Days #9 capsule levETIRAcetam [Keppra] 750 mg PO Q12HR #60 tab Lacosamide [Vimpat] 100 mg PO BID #60 tablet Thiamine [Vitamin B-1] 100 mg PO BID-W/MEALS #30 tab Discontinued Lacosamide [Vimpat] 50 mg PO BID levETIRAcetam [Keppra] 500 mg PO Q12HR Discharge Medication List chlordiazePOXIDE HCl [Librium] 25 mg PO TID 3 Days #9 capsule 01/08/20 [Rx] Lacosamide [Vimpat] 100 mg PO BID #60 tablet 01/09/20 [Rx] Thiamine [Vitamin B-1] 100 mg PO BID-W/MEALS #30 tab 01/09/20 [Rx] levETIRAcetam [Keppra] 750 mg PO Q12HR #60 tab 01/09/20 [Rx] Follow up Appointment(s)/Referral(s): Thony Singer MD [Primary Care Provider] - 3 Days [facility], [NON-STAFF] - 1 Week Austen Longoria MD [STAFF PHYSICIAN] - 1 Week Patient Instructions/Handouts: Recurrent Seizures in Adults (ED) Discharge Disposition: HOME SELF-CARE
--- NOTE | 2020-01-09 13:47 | P.PN ---
Subjective Progress Note Date: 01/09/20 Patient feeling fine. No further seizures. Denies any side effects of medication. Objective - Vital Signs Vital signs: Vital Signs Temp 98.3 F 01/09/20 12:19 Pulse 72 01/09/20 12:19 Resp 16 01/09/20 12:19 BP 118/79 01/09/20 12:19 Pulse Ox 95 01/09/20 12:19 Intake & Output 01/08/20 01/09/20 01/09/20 18:59 06:59 18:59 Intake Total 480 1590 Output Total 575 2000 Balance -95 -410 Weight 83.915 kg Intake: Oral 480 1590 Output: Urine 575 1999 Other: Voiding Method Toilet Urinal Urinal Incontinent # Voids 2 2 - Exam Nonfocal. Mentation is normal. Patient has hoarse voice. Patient does have history of right ankle surgery, some weakness of the right toe extension, which is chronic. - Labs CBC & Chem 7: 01/09/20 04:02 01/09/20 04:02 Labs: Abnormal Lab Results - Last 24 Hours (Table) 01/09/20 Range/Units 04:02 HDL Cholesterol 65.0 H (40.0-60.0) mg/dL Assessment and Plan Assessment: * Seizure disorder, came with breakthrough seizures likely due to alcoholism. 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 * Alcoholism. Plan: * Patient had an EEG performed, which again revealed focal slowing in the right temporal region. No epileptiform activity was seen. Focal slowing could be related to post ictal state/slowing. * We will increase Vimpat to 100 mg twice a day and Keppra 750 mg twice a day. Patient tolerating higher dose of Vimpat and Keppra well with no side effects. * Recommended abstinence from alcohol. * Patient informed of no driving for 6 months, operate dangerous machinery, climbing ladders or unsupervised swimming. Patient states he does not drive. * Patient has an appointment with his neurologist on 01/22/2020. * Patient is neurologically clear for discharge.
--- NOTE | 2020-01-11 00:25 | CDI ---
Documentation Clarification Form Date: 01/11/2020 From: Santiago Ortega Phone: If you have a question about this query, please contact Anastasiia Giraldo, Sales And Marketing Assistant at [phone] between 8am and 5pm. Admit Date: 01/08/2020 Discharge Date:01/09/2020 Patient Name: Isreal Osullivan Visit Number: [id number] ATTENTION: The Clinical Documentation Specialists (CDI) and [facility] Coding Staff appreciate your assistance in clarifying documentation. Please respond to the clarification below the line at the bottom and electronically sign. The CDI & [facility] Coding staff will review the response and follow-up if needed. Please note: Queries are made part of the Legal Health Record. If you have any questions, please contact the author of this message via ITS. Dear Nilda Conley MD., Encephalopathy is documented in Discharge summary as "Patient was evaluated by neurology and patient had an EEG didn't show any seizure focus but there is some slowing in the temporal area significant with encephalopathy." History/Risk Factors:Myocardial Infarction ([place]), Pneumonia, Seizure Disorder Additional Past Medical History / Comment(s): ETOH abuse with past withdrawal Labs: Alcohol <10 EEG:This is an abnormal EEG due to the presence of focal slowing over the right temporal region.This is suggestive of focal cortical neuronal dysfunction, which may be related to underlying structural abnormality or can be related to postictal slowing. No obvious epileptiform activity was seen. CT/MRI Brain:Old left posterior parietal cortical infarct unchanged.Cerebral atrophy.No acute intracranial abnormality. Treatment: Keppra * Seizure disorder, came with breakthrough seizures likely due to alcoholism. In your professional opinion, can you please clarify the specific type of Encephalopathy, if known? Metabolic Encephalopathy Toxic Encephalopathy Other, please specify Also, Please clarify Seizure disorder due to Alcoholism? YES NO Unable to determine for both of those questions MTDD
== END 2020-01-09 17:40 | disposition home or self-care (01) | DRG 101 ==
LOC: EC 01:55 → 6NMEDSUR 07:13
PROVIDERS: ADMIT Hospitalist; ATTEND Hospitalist
PROC: 3E0234Z Introduction of Serum, Toxoid and Vaccine into Muscle, Percutaneous Approach (ICD-10-PCS; principal; 2020-01-08)
DX: G40.109 Localization-related (focal) (partial) symptomatic epilepsy and epileptic syndromes with simple partial seizures, not intractable, without status epilepticus (principal); F10.20 Alcohol dependence, uncomplicated; F17.200 Nicotine dependence, unspecified, uncomplicated; R50.9 Fever, unspecified; Y90.0 Blood alcohol level of less than 20 mg/100 ml; Z20.828 Contact with and (suspected) exposure to other viral communicable diseases; Z79.899 Other long term (current) drug therapy; Z81.1 Family history of alcohol abuse and dependence; I25.2 Old myocardial infarction; Z87.81 Personal history of (healed) traumatic fracture; Z83.3 Family history of diabetes mellitus; Z86.73 Personal history of transient ischemic attack (TIA), and cerebral infarction without residual deficits; Z23 Encounter for immunization
CPT/HCPCS: 36415; 70450; 71046; 80048; 80053; 80061; 80177; 80320; 81001; 85025; 85027; 90732; 93005; 95816; 96372; 96374; 99285

== ENCOUNTER 2020-04-03 14:07 | Emergency (ER) | payer MEDICARE ==
[2020-04-03 14:23] VITALS: RESP 18
[2020-04-03] MEDS ORDERED: LORazepam 1 MG TAB PO STA (14:32)
[2020-04-03 15:04] LABS: Basophils % (A) 0 %; Eosinophils # (A) 0.1 k/uL (0-0.7); Eosinophils % (A) 1 %; HCT 42.4 % (39.0-53.0); HGB 14.6 gm/dL (13.0-17.5); Lymphocytes # (A) 1.1 k/uL (1.0-4.8); Lymphocytes % (A) 12 %; MCH 31.2 pg (25.0-35.0); MCHC 34.3 g/dL (31.0-37.0); MCV 90.9 fL (80.0-100.0); Mean Platelet Volume 8.6; Monocytes # (A) 0.6 k/uL (0-1.0); Monocytes % (A) 6 %; Neutrophils # (A) 7.2 k/uL (1.3-7.7); Neutrophils % (A) 79 %; Platelet Count 222 k/uL (150-450); RBC 4.67 m/uL (4.30-5.90); RDW 12.4 % (11.5-15.5); WBC 9.1 k/uL (3.8-10.6)
[2020-04-03 15:22] LABS: ALT 12 U/L (4-49); AST 23 U/L (17-59); African American GFR (CKD) >90 (>60 ml/min/1.73 sqM); Albumin 4.3 g/dL (3.5-5.0); Alcohol <10 mg/dL; Alkaline Phosphatase 52 U/L (38-126); Anion Gap 6 mmol/L; Blood Urea Nitrogen 7 mg/dL (9-20); Calcium 9.5 mg/dL (8.4-10.2); Carbon Dioxide 29 mmol/L (22-30); Chloride 103 mmol/L (98-107); Glucose 105 mg/dL (74-99); Magnesium 1.7 mg/dL (1.6-2.3); Non-African American GFR(CKD) >90 (>60 ml/min/1.73 sqM); Phosphorus 2.9 mg/dL (2.5-4.5); Potassium 4.3 mmol/L (3.5-5.1); Sodium 138 mmol/L (137-145); Total Bilirubin 0.8 mg/dL (0.2-1.3); Total Protein 7.2 g/dL (6.3-8.2)
--- NOTE | 2020-04-03 15:52 | CT ---
EXAMINATION TYPE: CT brain wo con DATE OF EXAM: 04/03/2020 COMPARISON: 01/08/2020 HISTORY: Paresthesias, seizure CT DLP: 1147.4 mGycm Automated exposure control for dose reduction was used. FINDINGS: Changes of chronic sinusitis involving the right ethmoid air cells and maxillary sinus. Orbits are symmetric. Mild generalized degenerative change. Area of remote infarct involving the right parietal lobe is sta ble from prior exam. Tiny calcification posteriorly is stable as well. Within the left frontal lobe t here is a tiny hyperdensity likely related to calcific patient. Craniocervical junction maintained. No midline shift or mass effect. Calvarium intact. IMPRESSION: 1. DEGENERATIVE AND REMOTE ISCHEMIC CHANGE WITH NO EVIDENCE OF ACUTE HEMORRHAGE OR MASS EFFECT. 2. CHANGES OF CHRONIC RIGHT MAXILLARY AND ETHMOIDAL CHRONIC SINUSITIS.
[2020-04-03 17:14] VITALS: BP 125/89; PULSE 69; TEMP 98
--- NOTE | 2020-04-03 17:20 | ED ---
General Adult HPI - General Chief complaint: Recheck/Abnormal Lab/Rx Stated complaint: hypertension Time Seen by Provider: 04/03/20 14:18 Source: patient, RN notes reviewed, old records reviewed Mode of arrival: EMS Limitations: no limitations - History of Present Illness Initial comments: 69-year-old male patient to ED for evaluation. Patient has a seizure disorder. He come to the ER because he is having a sensation that he has before seizures. He had some tingling in his fingertips and then metallic taste in his mouth. Patient has taken his antiseizure medication today. Denies any headache weakness is denying current alcohol usage and denies any other acute complaints. He denies any seizure activity at home. Systemic: Pt denies fatigue, fever/chills, rash. Pt denies weakness, night sweats, weight loss. Neuro: Pt denies headache, visual disturbances, syncope or pre-syncope. HEENT: Pt denies ocular discharge or irritation, otalgia, rhinorrhea, pharyngitis or notable lymphadenopathy. Cardiopulmonary: Pt denies chest pain, SOB, heart palpitations, dyspnea on exertion. Abdominal/GI: Pt denies abdominal pain, n/v/d. : Pt denies dysuria, burning w/ urination, frequency/urgency. Denies new onset urinary or bowel incontinence. MSK: Pt denies myalgia, loss of strength or function in extremities. Neuro: Pt denies new onset weakness, paresthesias. - Related Data Previous Rx's Medication Instructions Recorded chlordiazePOXIDE HCl [Librium] 25 mg PO TID 3 Days #9 capsule 01/08/20 Lacosamide [Vimpat] 100 mg PO BID #60 tablet 01/09/20 Thiamine [Vitamin B-1] 100 mg PO BID-W/MEALS #30 tab 01/09/20 levETIRAcetam [Keppra] 750 mg PO Q12HR #60 tab 01/09/20 Allergies Allergy/AdvReac Type Severity Reaction Status Date / Time No Known Allergies Allergy Verified 04/03/20 14:23 Review of Systems ROS Statement: Those systems with pertinent positive or pertinent negative responses have been documented in the HPI. ROS Other: All systems not noted in ROS Statement are negative. Past Medical History Past Medical History: Myocardial Infarction ([place]), Pneumonia, Seizure Disorder Additional Past Medical History / Comment(s): ETOH abuse with past withdrawal DTs and seizures, last seizure 01/08/20, pt states he is a fall hazard but has not fallen in past 6 months, pt states he had a "slight" [place] approximately 2-3 years ago and was seen at [facility] and shipped to [facility] but states had no cardiac intervention, past R foot fracture which did not heal, past perianal abscess, Last Myocardial Infarction Date:: 2017 History of Any Multi-Drug Resistant Organisms: None Reported Past Surgical History: No Surgical Hx Reported Additional Past Surgical History / Comment(s): Pt states he has never had surgery Past Anesthesia/Blood Transfusion Reactions: No Reported Reaction Additional Past Anesthesia/Blood Transfusion Reaction / Comment(s): "never received any blood transfusions" Past Psychological History: No Psychological Hx Reported Smoking Status: Current every day smoker Past Alcohol Use History: Rare Past Drug Use History: None Reported - Past Family History Father History Unknown: Yes Family Medical History: Diabetes Mellitus Additional Family Medical History / Comment(s): Father was an alcoholic. Mother History Unknown: Yes Family Medical History: Diabetes Mellitus General Exam - General Exam Comments Initial Comments: Constitutional: NAD, AOX3, Pt has pleasant affect. HEENT: NC/AT, trachea midline, neck supple, no lymphadenopathy. Posterior pharynx non erythematous, without exudates. External ears appear normal, without discharge. Mucous membranes moist. Eyes PERRLA, EOM intact. There is no scleral icterus. No pallor noted. Cardiopulmonary: RRR, no murmurs, rubs or gallops, no JVD noted. Lungs CTAB in anterior and posterior hallman. No peripheral edema. Abdominal exam: Abdomen soft and non-distended. Abdomen non-tender to palpation in all 4 quadrants. Bowel sounds active in LLQ. No hepatosplenomegaly. No ecchymosis Neuro: CN II-XII intact. No nuchal rigidity. No raccon eyes, no joyner sign, no hemotympanum. No cervical spinal tenderness. NIH 0. Ambulatory without difficulty. MSK: Full active ROM in upper and lower extremities, 5/5 stregnth. Limitations: no limitations Course Vital Signs 04/03/20 04/03/20 04/03/20 14:17 16:15 17:11 Temperature 99.8 F H 98.0 F Pulse Rate 69 67 69 Respiratory 18 18 18 Rate Blood Pressure 161/94 152/99 125/89 O2 Sat by Pulse 93 L 98 94 L Oximetry Medical Decision Making - Medical Decision Making 69-year-old male patient to ED for evaluation. Patient vital signs are stable, afebrile. Physical exam negative for acute pathology. Of investigations are unremarkable. CT brain without contrast is negative for acute intracranial process. EKG is nonischemic. Patient paresthesias have improved. Ambulatory without difficulty. Observed for 3 hours. We'll discharge the patient follow-up and return precautions. Case discussed with Dr. Cole. - Lab Data Result diagrams: 04/03/20 14:35 04/03/20 14:35 Lab Results 04/03/20 04/03/20 04/03/20 Range/Units 14:35 14:35 14:35 WBC 9.1 (3.8-10.6) k/uL RBC 4.67 (4.30-5.90) m/uL Hgb 14.6 (13.0-17.5) gm/dL Hct 42.4 (39.0-53.0) % MCV 90.9 (80.0-100.0) fL MCH 31.2 (25.0-35.0) pg MCHC 34.3 (31.0-37.0) g/dL RDW 12.4 (11.5-15.5) % Plt Count 222 (150-450) k/uL MPV 8.6 Neutrophils % 79 % Lymphocytes % 12 % Monocytes % 6 % Eosinophils % 1 % Basophils % 0 % Neutrophils # 7.2 (1.3-7.7) k/uL Lymphocytes # 1.1 (1.0-4.8) k/uL Monocytes # 0.6 (0-1.0) k/uL Eosinophils # 0.1 (0-0.7) k/uL Basophils # 0.0 (0-0.2) k/uL Sodium 138 (137-145) mmol/L Potassium 4.3 (3.5-5.1) mmol/L Chloride 103 (98-107) mmol/L Carbon Dioxide 29 (22-30) mmol/L Anion Gap 6 mmol/L BUN 7 L (9-20) mg/dL Creatinine 0.73 (0.66-1.25) mg/dL Est GFR (CKD-EPI)AfAm >90 (>60 ml/min/1.73 sqM) Est GFR (CKD-EPI)NonAf >90 (>60 ml/min/1.73 sqM) Glucose 105 H (74-99) mg/dL Plasma Lactic Acid Tommy 1.4 (0.7-2.0) mmol/L Calcium 9.5 (8.4-10.2) mg/dL Phosphorus 2.9 (2.5-4.5) mg/dL Magnesium 1.7 (1.6-2.3) mg/dL Total Bilirubin 0.8 (0.2-1.3) mg/dL AST 23 (17-59) U/L ALT 12 (4-49) U/L Alkaline Phosphatase 52 (38-126) U/L Total Protein 7.2 (6.3-8.2) g/dL Albumin 4.3 (3.5-5.0) g/dL Serum Alcohol <10 mg/dL - EKG Data -: EKG Interpreted by Me (and Dr. Cole ) EKG Comments: Ventricular rate 68, NE interval 148, QRS 104, QT/QTc 428/434. Normal sensory rhythm, normal EKG, no concern for acute ischemia. Disposition Clinical Impression: Paresthesia Disposition: HOME SELF-CARE Condition: Stable Instructions (If sedation given, give patient instructions): Paresthesia (ED), Recurrent Seizures in Adults (ED) Additional Instructions: Follow up with primary care provider and neurologist tomorrow. Take seizure medication as directed by neurologist. Return to ER if any worsening symptoms. Is patient prescribed a controlled substance at d/c from ED?: No Referrals: Thony Singer MD [Primary Care Provider] - 1-2 days
== END 2020-04-03 17:30 | disposition home or self-care (01) ==
LOC: EC 14:07
DX: R20.2 Paresthesia of skin (principal); I25.2 Old myocardial infarction; F17.200 Nicotine dependence, unspecified, uncomplicated
CPT/HCPCS: 36415; 93005; 80053; 83605; 83735; 84100; 85025; 70450; 99284; G0480; 80320

== ENCOUNTER 2020-04-15 15:32 | Inpatient (IN) | payer MEDICARE ==
[2020-04-15 16:28] LABS: Basophils % (A) 0 %; Eosinophils # (A) 0.1 k/uL (0-0.7); Eosinophils % (A) 1 %; HCT 42.7 % (39.0-53.0); HGB 13.6 gm/dL (13.0-17.5); Lymphocytes # (A) 1.8 k/uL (1.0-4.8); Lymphocytes % (A) 19 %; MCH 30.8 pg (25.0-35.0); Mean Platelet Volume 9.4; Monocytes # (A) 0.7 k/uL (0-1.0); Monocytes % (A) 7 %; Neutrophils # (A) 6.8 k/uL (1.3-7.7); Neutrophils % (A) 71 %; Platelet Count 274 k/uL (150-450); RBC 4.44 m/uL (4.30-5.90); RDW 13.1 % (11.5-15.5); WBC 9.6 k/uL (3.8-10.6)
--- NOTE | 2020-04-15 16:29 | ED ---
General Adult HPI - General Chief complaint: Seizure Stated complaint: seizure Time Seen by Provider: 04/15/20 15:37 Source: patient, EMS, RN notes reviewed Mode of arrival: EMS Limitations: no limitations - History of Present Illness Initial comments: Patient is a pleasant 69-year-old male presenting to the emergency department following seizure. Patient is drowsy but able to answer questions. Last seizure was less than 2 months ago. Patient states he typically has left-sided weakness following his seizures, over a dozen times and is not surprised regarding this. Patient reportedly had 2 seizures also witnessed by EMS and percent was provided. Patient feels drowsy at this time otherwise has no complaints. Patient denies any recent illness. No trauma. - Related Data Home Medications Medication Instructions Recorded Confirmed levETIRAcetam [Keppra] 1,000 mg PO BID 04/15/20 04/15/20 Allergies Allergy/AdvReac Type Severity Reaction Status Date / Time No Known Allergies Allergy Verified 04/15/20 16:47 Review of Systems ROS Statement: Those systems with pertinent positive or pertinent negative responses have been documented in the HPI. ROS Other: All systems not noted in ROS Statement are negative. Constitutional: Denies: fever Eyes: Denies: eye pain ENT: Denies: ear pain Respiratory: Denies: cough Cardiovascular: Denies: chest pain Gastrointestinal: Denies: abdominal pain Genitourinary: Denies: dysuria Musculoskeletal: Denies: back pain Skin: Denies: rash Neurological: Reports: as per HPI. Denies: headache Past Medical History Past Medical History: Myocardial Infarction ([place]), Pneumonia, Seizure Disorder Additional Past Medical History / Comment(s): ETOH abuse with past withdrawal DTs and seizures, last seizure 01/08/20, pt states he is a fall hazard but has not fallen in past 6 months, pt states he had a "slight" [place] approximately 2-3 years ago and was seen at [facility] and shipped to [facility] but states had no cardiac intervention, past R foot fracture which did not heal, past perianal abscess, Last Myocardial Infarction Date:: 2017 History of Any Multi-Drug Resistant Organisms: None Reported Past Surgical History: No Surgical Hx Reported Additional Past Surgical History / Comment(s): Pt states he has never had surgery Past Anesthesia/Blood Transfusion Reactions: No Reported Reaction Additional Past Anesthesia/Blood Transfusion Reaction / Comment(s): "never received any blood transfusions" Past Psychological History: No Psychological Hx Reported Smoking Status: Current every day smoker Past Alcohol Use History: Rare Past Drug Use History: None Reported - Past Family History Father History Unknown: Yes Family Medical History: Diabetes Mellitus Additional Family Medical History / Comment(s): Father was an alcoholic. Mother History Unknown: Yes Family Medical History: Diabetes Mellitus General Exam General appearance: in no apparent distress Head exam: Present: atraumatic, normocephalic Eye exam: Present: normal appearance, PERRL ENT exam: Present: normal oropharynx Neck exam: Present: normal inspection Respiratory exam: Present: normal lung sounds bilaterally Cardiovascular Exam: Present: regular rate, normal rhythm GI/Abdominal exam: Present: soft. Absent: tenderness Extremities exam: Present: normal inspection Neurological exam: Present: alert, oriented X3, CN II-XII intact (Except for left-sided facial weakness) Expanded Neurological exam: Present: protecting the airway Cranial nerves: EOM's Intact: Abnormal Left Motor strength exam: RUE: 5, LUE: 4, RLE: 5, LLE: 3 Eye Response: (4) open spontaneously Motor Response: (6) obeys commands Verbal Response: (5) oriented Psychiatric exam: Present: flat affect Skin exam: Present: normal color Course Vital Signs 04/15/20 15:38 Temperature 98.2 F Pulse Rate 101 H Respiratory 15 Rate Blood Pressure 114/77 O2 Sat by Pulse 100 Oximetry - Reevaluation(s) Reevaluation #1: 04/15/20 16:27 Nursing staff did confirm with patient's friend that left-sided weakness is chronic EKG Findings - EKG Comments: EKG Findings:: Sinus tachycardia 104. For screening AV block with a PA of 208. QRS 108. QT 358. QTC 470. Normal axis. Incomplete (block. Nonspecific ST- T. Q waves V1 and V2. Medical Decision Making - Medical Decision Making Patient reevaluated and more alert and appropriate. Weakness has resolved. Patient updated on results and plan. Case was discussed with practitioner Lamar andrews, covering with Dr. Costa, who will admit for Dr. Singer. - Lab Data Result diagrams: 04/15/20 16:12 04/15/20 16:12 Lab Results 04/15/20 04/15/20 Range/Units 16:12 16:12 WBC 9.6 (3.8-10.6) k/uL RBC 4.44 (4.30-5.90) m/uL Hgb 13.6 (13.0-17.5) gm/dL Hct 42.7 (39.0-53.0) % MCV 96.2 D (80.0-100.0) fL MCH 30.8 (25.0-35.0) pg MCHC 32.0 (31.0-37.0) g/dL RDW 13.1 (11.5-15.5) % Plt Count 274 (150-450) k/uL MPV 9.4 Neutrophils % 71 % Lymphocytes % 19 % Monocytes % 7 % Eosinophils % 1 % Basophils % 0 % Neutrophils # 6.8 (1.3-7.7) k/uL Lymphocytes # 1.8 (1.0-4.8) k/uL Monocytes # 0.7 (0-1.0) k/uL Eosinophils # 0.1 (0-0.7) k/uL Basophils # 0.0 (0-0.2) k/uL Sodium 137 (137-145) mmol/L Potassium 3.5 (3.5-5.1) mmol/L Chloride 103 (98-107) mmol/L Carbon Dioxide 13 L (22-30) mmol/L Anion Gap 21 mmol/L BUN 16 (9-20) mg/dL Creatinine 0.80 (0.66-1.25) mg/dL Est GFR (CKD-EPI)AfAm >90 (>60 ml/min/1.73 sqM) Est GFR (CKD-EPI)NonAf >90 (>60 ml/min/1.73 sqM) Glucose 129 H (74-99) mg/dL Calcium 9.3 (8.4-10.2) mg/dL Magnesium 1.8 (1.6-2.3) mg/dL Total Bilirubin 0.4 (0.2-1.3) mg/dL AST 27 (17-59) U/L ALT 21 (4-49) U/L Alkaline Phosphatase 49 (38-126) U/L Total Protein 7.5 (6.3-8.2) g/dL Albumin 4.6 (3.5-5.0) g/dL Serum Alcohol <10 mg/dL - Radiology Data Radiology results: report reviewed (Computed tomography scan of brain shows old infarct) Disposition Clinical Impression: Epileptic seizure, generalized, Left-sided weakness Disposition: ADMITTED IP TO THIS HOSP Is patient prescribed a controlled substance at d/c from ED?: No Referrals: Thony Singer MD [Primary Care Provider] - 1-2 days Decision Time: 17:18
[2020-04-15 16:33] LABS: MCV 96.2 fL (80.0-100.0)
[2020-04-15 16:35] LABS: Potassium 3.5 mmol/L (3.5-5.1)
[2020-04-15 16:36] LABS: AST 27 U/L (17-59); African American GFR (CKD) >90 (>60 ml/min/1.73 sqM); Albumin 4.6 g/dL (3.5-5.0); Alcohol <10 mg/dL; Alkaline Phosphatase 49 U/L (38-126); Anion Gap 21 mmol/L; Blood Urea Nitrogen 16 mg/dL (9-20); Calcium 9.3 mg/dL (8.4-10.2); Carbon Dioxide 13 mmol/L (22-30); Chloride 103 mmol/L (98-107); Glucose 129 mg/dL (74-99); Magnesium 1.8 mg/dL (1.6-2.3); Non-African American GFR(CKD) >90 (>60 ml/min/1.73 sqM); Sodium 137 mmol/L (137-145); Total Bilirubin 0.4 mg/dL (0.2-1.3); Total Protein 7.5 g/dL (6.3-8.2)
[2020-04-15 16:43] LABS: ALT 21 U/L (4-49)
--- NOTE | 2020-04-15 16:43 | CT ---
EXAMINATION TYPE: CT brain wo con DATE OF EXAM: 04/15/2020 COMPARISON: 04/03/2020, 01/08/2020 HISTORY: 69-year-old male with seizure activity TECHNIQUE: Examination was done in axial plane without intravenous contrast. Coronal and sagittal r econstructions performed. CT DLP: 1164.4 mGycm Automated exposure control for dose reduction was used. FINDINGS: Redemonstrated right frontal parietal junction encephalomalacia weight small foci of dystrophic calci fication, unchanged from 01/08/2020. There is no evidence of acute intracranial hemorrhage, acute ischemic changes, mass, mass-effect, or extra-axial fluid collection. There is no effacement of cerebral sulci or basal subarachnoid cister ns. There is no hydrocephalus. There is no midline shift. Leon-white matter distinction is preserv ed. Complete opacification right maxillary sinus with some chronic thickening of the sinus dick. Moderat e mucosal thickening throughout the right ethmoid air cells persists. Mastoid air cells well pneumati zed. Orbits and globes are intact. 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 No acute intracranial abnormality seen. Chronic severe right maxillary and right ethmoid sinus disease.
[2020-04-15] MEDS ORDERED: LORazepam 2 MG/ML INJ IV PRN (17:19)
[2020-04-15] MEDS ORDERED: NALOXONE 0.4 MG/ML 1 ML VIAL IV PRN (17:19)
[2020-04-15 17:20] LABS: Appearance,Urine Clear (Clear); Bilirubin,Urine Negative (Negative); Blood,Urine Negative (Negative); Color,Urine Yellow; Glucose,Urine (UA) Negative (Negative); Hyaline Casts,Urine 10 /lpf (0-2); Ketones,Urine 1+ (Negative); Leukocyte Esterase,Urine Trace (Negative); Mucus,Urine Rare /hpf; Nitrite,Urine Negative (Negative); Protein,Urine 1+ (Negative); RBC,Urine <1 /hpf (0-5); Specific Gravity,Urine 1.018 (1.001-1.035); Urobilinogen,Urine <2.0 mg/dL (<2.0); WBC,Urine 2 /hpf (0-5)
[2020-04-15] MEDS ORDERED: LORazepam 2 MG/ML INJ IV STA (17:28)
[2020-04-15] MEDS: SODIUM CHLORIDE 0.9% 1,000 ML IV SCH (17:36)
[2020-04-15 17:48] LABS: Amphetamine Screen,Urine Not Detected (NotDetected); Barbiturate Screen,Urine Not Detected (NotDetected); Benzodiazepines Screen,Urine Not Detected (NotDetected); Cocaine Screen,Urine Not Detected (NotDetected); Methadone Screen, Urine Not Detected (NotDetected); Opiate Screen,Urine Not Detected (NotDetected); Oxycodone Screen, Urine Not Detected (NotDetected); Phencyclidine Screen,Urine Not Detected (NotDetected); Tricyclic Antidepressant,Urine Not Detected (NotDetected); Urn Cannabinoid Scrn Not Detected (NotDetected)
[2020-04-15] MEDS ORDERED: LACOSAMIDE IV 100 MG in SODIUM CHLORIDE 0.9% 50 ML IVPB STA (19:33)
[2020-04-15] MEDS ORDERED: levETIRAcetam 500 MG TAB PO SCH (19:33)
--- NOTE | 2020-04-15 19:51 | P.CNNES ---
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 According to the patient the last seizure was about 2 month ago. According to the patient around 2 PM activity was sitting on a couch and all of a sudden the he said that that he was having numbness and tingling and then weakness over the left side and then he started jerking of the left upper and lower extremity the episode lasted for 1-2 minutes. EMS was contacted and patient had that to further episodes lasting 1 minute and 45 seconds according to the patient's nurse. Patient denied any tongue bite, urinary or bowel incontinence. [place] the patient was inconsistent with a history initially stating that he had left-sided numbness and weakness then the later he stated that right sided numbness and weakness. He notified the ED team that the his left-sided weakness is typical for the when he has a seizure which resolved. He stated that he's been compliant taking the Keppra 1000 mg 1 tablet twice a day given by his neurologist Dr. Longoria. But his Vimpat was discontinued the about a month ago by his neurologist and he doesn't know why. He is scheduled to follow-up with his neurologist at at at the end of the March. He stated that he drinks about 2-3 cans of beer the 25 ounces and it's every other day. I contacted the patient's girlfriend and she stated that he's been making improvement as well as 20 and and his last alcohol was yesterday and he drank one can of beer. Regarding his a history of strokes he said that he is on chewable aspirin but he ran out about a month ago. He supposed to be also on statin but he said that he is not on statin. Work-up the hospital consisted of: Initial vitals: Blood pressure of 114/77, heart rate of 101, respiratory of 15, temperature of 98.2 Fahrenheit oral and pulse ox of 100% at room air. CT of the head is reported as old encephalomalacia over the right frontal parietal junction really into the parietal infarct with punctate foci of dystrophic calcification unchanged from the 01/08/2020. No acute intracranial abnormality seen. Chronic severe right maxillary and right ethmoid sinus disease. EKG is reported as sinus tachycardia with occasional premature ventricular complexes. Incomplete left bundle branch block. ST depression, consider some endocardial injury or digitalis effect. Nonspecific T wave abnormality. Abnormal EKG. Patient initial white blood cell is 9.6 is normal. Serum glucose is 129 which is slightly elevated but not too concerning. Urinary alcohol is less than 10 while the other urine drug screen panel is nondetected She was given Ativan 1 mg by the ED team at 1729. Of note: Patient was evaluated by Dr. Leal, neuro-hospitalist on 01/08/2020 for breakt hrough seizures and he felt was likely due to alcohol some. He recommended the patient to abstain from alcohol. He also recommended to increase the Vimpat the 100 mg twice a day and the Keppra for 750 mg twice a day. He also evaluated him on the 10/31/2023 also breakthrough seizure because the patient missed 3 doses of his medication at that time. He was in [facility] by Dr. Stone on 05/07/2019 for breakthrough seizure. Patient had multiple EEGs in our facility the last one was on the 01/08/2020 and was reported as abnormal EEG due to the presence of focal slowing over the right temporal region that. This is suggestive of focal cortical neuronal dysfunction which may be related to underlying structural abnormality or be related to postictal slowing. No obvious epileptiform activity was seen. The EEG prior to that which was on 10/31/2019 showed focal slowing over the right temporal region. But there is no epileptiform activity and there is no seizure reported on either reports. It is reported on the Dr. Durán's last note that the patient drinks 2 cans of beer daily and felisa 3-4 cans of beers daily. Review of Systems Review of system: The 12 point system was reviewed and apparent positive and negative per HPI. Past Medical History Past Medical History: Myocardial Infarction ([place]), Pneumonia, Seizure Disorder Additional Past Medical History / Comment(s): ETOH abuse with past withdrawal DTs and seizures, last seizure 01/08/20, pt states he is a fall hazard but has not fallen in past 6 months, pt states he had a "slight" [place] approximately 2-3 years ago and was seen at [facility] and shipped to [facility] but states had no cardiac intervention, past R foot fracture which did not heal, past perianal abscess, Last Myocardial Infarction Date:: 2017 History of Any Multi-Drug Resistant Organisms: None Reported Past Surgical History: No Surgical Hx Reported Additional Past Surgical History / Comment(s): Pt states he has never had surgery Past Anesthesia/Blood Transfusion Reactions: No Reported Reaction Additional Past Anesthesia/Blood Transfusion Reaction / Comment(s): "never received any blood transfusions" Past Psychological History: No Psychological Hx Reported Smoking Status: Current every day smoker Past Alcohol Use History: Rare Past Drug Use History: None Reported - Past Family History Father History Unknown: Yes Family Medical History: Diabetes Mellitus Additional Family Medical History / Comment(s): Father was an alcoholic. Mother History Unknown: Yes Family Medical History: Diabetes Mellitus Medications and Allergies Home Medications Medication Instructions Recorded Confirmed Type levETIRAcetam [Keppra] 1,000 mg PO BID 04/15/20 04/15/20 History Allergies Allergy/AdvReac Type Severity Reaction Status Date / Time No Known Allergies Allergy Verified 04/15/20 16:47 Physical Examination - Vital Signs Vital Signs: Vital Signs Temp Pulse Resp BP Pulse Ox 04/15/20 18:33 67 18 138/85 100 04/15/20 17:27 70 18 125/97 98 04/15/20 15:38 98.2 F 101 H 15 114/77 100 Intake and Output 04/15/20 04/15/20 04/15/20 06:59 14:59 22:59 Other: Weight 81.647 kg GENERAL: The patient is lying in bed and is not in acute distress. CHEST: The heart rate is regular rate rhythm. No murmurs to auscultation. LUNG: Clear to auscultation bilaterally no wheezing noted throughout. Not labored breathing. ABDOMEN/GI: Bowel sounds present in all 4 quadrants. No tenderness to palpation throughout. NEUROLOGICAL: Higher mental function: The patient is awake, alert, oriented to self, place and time. Patient is following commands. No aphasia and no neglect. Cranial nerves: The pupils are round, equal and reactive to light and accommodation. Visual hallman are full to confrontation throughout. Extraocular movement is intact no nystagmus is noted. Facial sensation is normal to touch throughout. The facial strength is normal throughout. Hearing is normal bilaterally to hand rub. Tongue is midline and moved [id number] without any difficulty. No dysarthria is noted. Shoulder shrug is normal bilaterally. Motor: The strength is 5 over 5 throughout. Normal tone and bulk. Cerebellum: Normal finger to nose heel to chin bilaterally. Sensation: Sensation is normal to touch throughout. Reflexes (right/left): 2+ throughout except ankles are 1+ Plantars are downgoing bilaterally. Results Urinalysis is negative for urinary tract infection. - Laboratory Findings CBC and BMP: 04/15/20 16:12 04/15/20 16:12 Abnormal Lab Findings: Abnormal Labs 04/15/20 04/15/20 16:12 17:07 Carbon Dioxide 13 L Glucose 129 H Urine Protein 1+ H Urine Ketones 1+ H Ur Leukocyte Esterase Trace H Hyaline Casts 10 H Urine Mucus Rare H Assessment and Plan Assessment: This is a 69-year-old gentleman that presented for the breakthrough seizure. 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 He was seen in the by our neurology team multiple times in the past for breakthrough seizures and it's reported that it's because of alcohol withdrawal or medication noncompliance. Seizures order, came with breakthrough seizure. Likely due to under-treated seizure and maybe component of alcohol withdrawl since last drink is yesterday and he had one drink (drinks every other days 2-3 cars of beer and alcohol level is <10). 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 Alcoholism Occasional noncompliance Plan: I restarted the Vimpat 100 mg 1 tablet twice a day and continues Keppra 1000mg 1 tablet twice a day. Keppra level is ordered by the ED team as stat. An EEG is not worse if the patient is back to baseline and he is known to have the history of seizure. Regarding the patient history of stroke I will restart the patient on aspirin 81 mg and Lipitor 20mg daily. I'll start the patient on thiamine 100 mg daily is showed alcohol use Patient was counseled alcohol cessation. Because of seizures per the [place] DMV, he is restricted from driving for 6 months u nless he seizure-free. He's avoiding heavy machinery, climbing [place] or swimming unassisted. Patient needs to follow-up with his neurologist (Dr. Longoria) as an outpatient. He stated that the he has an appointment at the end of March. I recommended the patient be on the Keppra 1000 mg 1 tablet twice a day and that then that 100 mg 1 tablet twice a day and that the patient's seizures are controlled may be down the line recommend tapering down but I'll lead defer the management to his neurologist as an outpatient. The plan was discussed with the patient. Thank You for the consultation. Austen Liu M.D. Neuro-hospitalist Time with Patient: Greater than 30
[2020-04-15] MEDS: levETIRAcetam 500 MG TAB PO SCH (20:25)
[2020-04-15] MEDS: ASPIRIN 81 MG PO SCH (20:25)
[2020-04-15] MEDS: THIAMINE 100 MG TAB PO SCH (20:26)
[2020-04-15] MEDS: ATORVASTATIN 20 MG TAB PO SCH (20:26)
[2020-04-16] MEDS ORDERED: LACOSAMIDE 50 MG TABLET PO SCH ×2 (09:00)
[2020-04-16] MEDS: ATORVASTATIN 20 MG TAB PO SCH (09:30)
[2020-04-16] MEDS: levETIRAcetam 500 MG TAB PO SCH (09:30)
[2020-04-16] MEDS: THIAMINE 100 MG TAB PO SCH (09:31)
[2020-04-16] MEDS: ASPIRIN 81 MG PO SCH (09:31)
--- NOTE | 2020-04-16 11:50 | P.PN ---
Subjective Progress Note Date: 04/16/20 She was seen at bedside and he stated that the he has not had any further seizures since he's been in the hospital. He stated that he's feeling much better today compared to yesterday. I was informed by the primary team that the patient that could not get Vimpat since when he was in the hospital last time the Vimpat was constant $297 therefore that could be a reason why Dr. Longoria was only a place him on Keppra. Again the patient and his significant other when I spoke to them yesterday didn't know why they were taking off of Vimpat. Objective - Vital Signs Vital signs: Vital Signs Temp 98.5 F 04/16/20 08:30 Pulse 58 L 04/16/20 08:30 Resp 18 04/16/20 08:30 BP 96/63 04/16/20 08:30 Pulse Ox 95 04/16/20 08:30 Intake & Output 04/15/20 04/16/20 04/16/20 18:59 06:59 18:59 Output Total 200 200 Balance -200 -200 Weight 81.647 kg 81.647 kg Output: Urine 200 200 Other: # Voids 1 - Exam GENERAL: The patient is lying in bed and is not in acute distress. NEUROLOGICAL: Higher mental function: The patient is awake, alert, oriented to self, place and time. Patient is following commands. No aphasia and no neglect. Cranial nerves: The pupils are round, equal and reactive to light and accommodation. Visual hallman are full to confrontation throughout. Extraocular movement is intact no nystagmus is noted. Facial sensation is normal to touch throughout. The facial strength is normal throughout. Hearing is normal bilaterally to hand rub. Tongue is midline and moved [id number] without any difficulty. No dysarthria is noted. Shoulder shrug is normal bilaterally. Motor: Gait is deferred. The strength is 5 over 5 throughout. Normal tone and bulk. Cerebellum: Normal finger to nose heel to chin bilaterally. Sensation: Sensation is normal to touch throughout. Reflexes (right/left): 2+ throughout except ankles are 1+ Plantars are downgoing bilaterally. - Labs CBC & Chem 7: 04/15/20 16:12 04/15/20 16:12 Labs: Abnormal Lab Results - Last 24 Hours (Table) 04/15/20 04/15/20 Range/Units 16:12 17:07 Carbon Dioxide 13 L (22-30) mmol/L Glucose 129 H (74-99) mg/dL Urine Protein 1+ H (Negative) Urine Ketones 1+ H (Negative) Ur Leukocyte Esterase Trace H (Negative) Hyaline Casts 10 H (0-2) /lpf Urine Mucus Rare H (None) /hpf Assessment and Plan Assessment: This is a 69-year-old gentleman that presented for the breakthrough seizure. 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 He was seen in the by our neurology team multiple times in the past for breakthrough seizures and it's reported that it's because of alcohol withdrawal or medication noncompliance. Seizures order, came with breakthrough seizure. Likely due to under-treated seizure and maybe component of alcohol withdrawl since last drink is yesterday and he had one drink (drinks every other days 2-3 cars of beer and alcohol level is <10). 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 Alcoholism Occasional noncompliance Plan: Since the Vimpat is expensive and the patient the cannot afford it, therefore will discontinue Vimpat. I will increase the Keppra from 1000 mg 1 tablet twice a day to 1500 mg 1 tablet twice a day. The reason for the drastic increase is the patient is having seizures on 1000 mg 1 tablet so prior to that that we recommended the patient to be on two medications. So in order to prevent hopefully future recurrent seizures this dose hopefully will control his seizures. I notified the patient that the Keppra can cause of agitation, irritable and worsening of depression but he stated he tolaterad Keppra well in the past. An EEG was not performed since patient is back to baseline. Regarding the patient history of stroke I restarted the patient on aspirin 81 mg and Lipitor 20mg daily. Continue thiamine 100 mg daily is showed alcohol use Patient was counseled alcohol cessation. Because of seizures per the [place] DMV, he is restricted from driving for 6 months unless he seizure-free. He's avoiding heavy machinery, climbing the [place] or swimming unassisted. Patient needs to follow-up with his neurologist (Dr. Longoria) as an outpatient and he said he has an appointment at the end of March. The plan was discussed with the patient. From a neurology perspective, the patient seems stable. There is no further neurological work-up. He is clear for discharge if he has no further seizure by 3pm today. Austen Liu M.D. Neuro-hospitalist Time with Patient: Less than 30
--- NOTE | 2020-04-16 12:35 | P.HPIM ---
History of Present Illness Patient is a pleasant 69-year-old the female came in after having a seizure which followed weakness on the left side of the body. Patient's nurse witnessed the this event. Patient sees for 1 minute 45 seconds. Doesn't have any tongue bite, and didn't have any bowel or bladder incontinence. Patient had left-sided and then right-sided numbness and weakness. Patient had history of seizure disorder and patient also had alcohol withdrawal seizures in the past and patient used to be on Keppra and Vimpat. Presently only on Keppra Vimpat was discontinued by his primary neurologist about a month ago. Patient still drinks about 2-3 cans of beer every day. Patient last drink was 2 days ago. Patient has some shaking is concerned about withdrawals. Patient was evaluated by neurology patient was initially started on Vimpat but was subsequently discontinued as Vimpat is very expensive and his insurance doesn't cover it Keppra dose is being decreased at this time. CT of the head showed encephalomalacia was the frontoparietal junction with punctate foci of calcification this was from December 2019 Review of Systems REVIEW OF SYSTEMS: CONSTITUTIONAL: No fever, no malaise, no fatigue. HEENT: No recent visual problems or hearing problems. Denied any sore throat. CARDIOVASCULAR: No chest pain, orthopnea, PND, no palpitations, no syncope. PULMONARY: No shortness of breath, no cough, no hemoptysis. GASTROINTESTINAL: No diarrhea, no nausea, no vomiting, no abdominal pain. NEUROLOGICAL: As mentioned in HPI HEMATOLOGICAL: Denies any bleeding or petechiae. GENITOURINARY: Denies any burning micturition, frequency, or urgency. MUSCULOSKELETAL/RHEUMATOLOGICAL: Denies any joint pain, swelling, or any muscle pain. ENDOCRINE: Denies any polyuria or polydipsia. The rest of the 14-point review of systems is negative. Past Medical History Past Medical History: Myocardial Infarction ([place]), Pneumonia, Seizure Disorder Additional Past Medical History / Comment(s): ETOH abuse with past withdrawal DTs and seizures, last seizure 01/08/20, pt states he is a fall hazard but has not fallen in past 6 months, pt states he had a "slight" [place] approximately 2-3 years ago and was seen at [facility] and shipped to [facility] but states had no cardiac intervention, past R foot fracture which did not heal, past perianal abscess, Last Myocardial Infarction Date:: 2017 History of Any Multi-Drug Resistant Organisms: None Reported Past Surgical History: No Surgical Hx Reported Additional Past Surgical History / Comment(s): Pt states he has never had surgery Past Anesthesia/Blood Transfusion Reactions: No Reported Reaction Additional Past Anesthesia/Blood Transfusion Reaction / Comment(s): "never received any blood transfusions" Past Psychological History: No Psychological Hx Reported Additional Psychological History / Comment(s): Pt is getting a walker. He needs assistance with ADLs. Smoking Status: Current every day smoker Past Alcohol Use History: Rare Additional Past Alcohol Use History / Comment(s): Pt started smoking in 1965. He states he drinks 2 beers a day and last drank 01/08/20. Past Drug Use History: None Reported - Past Family History Father History Unknown: Yes Family Medical History: Diabetes Mellitus Additional Family Medical History / Comment(s): Father was an alcoholic. Mother History Unknown: Yes Family Medical History: Diabetes Mellitus Medications and Allergies Home Medications Medication Instructions Recorded Confirmed Type levETIRAcetam [Keppra] 1,000 mg PO BID 04/15/20 04/15/20 History Allergies Allergy/AdvReac Type Severity Reaction Status Date / Time No Known Allergies Allergy Verified 04/15/20 16:47 Physical Exam Vitals: Vital Signs Temp Pulse Pulse Resp BP BP Pulse Ox 04/16/20 08:30 98.5 F 58 L 18 96/63 95 04/16/20 07:27 98.8 F 60 18 108/69 95 04/16/20 01:00 98.7 F 68 20 125/79 98 04/15/20 22:45 98.8 F 64 16 126/81 98 04/15/20 18:33 67 18 138/85 100 04/15/20 17:27 70 18 125/97 98 04/15/20 15:38 98.2 F 101 H 15 114/77 100 Intake and Output 04/15/20 04/16/20 04/16/20 22:59 06:59 14:59 Output Total 200 200 Balance -200 -200 Output: Urine 200 200 Other: # Voids 1 Weight 81.647 kg 81.647 kg PHYSICAL EXAMINATION: GENERAL: The patient is alert and oriented x3, not in any acute distress. Well developed, well nourished. She has some tremors nonessential HEENT: Pupils are round and equally reacting to light. EOMI. No scleral icterus. No conjunctival pallor. Normocephalic, atraumatic. No pharyngeal erythema. No thyromegaly. CARDIOVASCULAR: S1 and S2 present. No murmurs, rubs, or gallops. PULMONARY: Chest is clear to auscultation, no wheezing or crackles. ABDOMEN: Soft, nontender, nondistended, normoactive bowel sounds. No palpable organomegaly. MUSCULOSKELETAL: No joint swelling or deformity. EXTREMITIES: No cyanosis, clubbing, or pedal edema. NEUROLOGICAL: Gross neurological examination did not reveal any focal deficits. SKIN: No rashes. Results CBC & Chem 7: 04/15/20 16:12 04/15/20 16:12 Labs: Abnormal Lab Results - Last 24 Hours (Table) 04/15/20 04/15/20 Range/Units 16:12 17:07 Carbon Dioxide 13 L (22-30) mmol/L Glucose 129 H (74-99) mg/dL Urine Protein 1+ H (Negative) Urine Ketones 1+ H (Negative) Ur Leukocyte Esterase Trace H (Negative) Hyaline Casts 10 H (0-2) /lpf Urine Mucus Rare H (None) /hpf Thrombosis Risk Factor Assmnt - Choose All That Apply Other Risk Factors: Yes Each Risk Factor Represents 2 Points: Age 61-74 years Thrombosis Risk Factor Assessment Total Risk Factor Score: 2 Thrombosis Risk Factor Assessment Level: Low Risk Assessment and Plan Plan: -Break through seizures: Patient's Keppra dose is being increased as mentioned above. Patient will be monitored one more night because of concerns of all call withdrawal -Call ABUSE: Counseling was provided -Alcohol withdrawal patient will be monitored for this patient is on thiamine multivitamin supplementation. -Seizure disorder -DVT prophylaxis with Lovenox
[2020-04-16] MEDS: SODIUM CHLORIDE 0.9% 1,000 ML IV SCH (20:22)
[2020-04-17 02:16] VITALS: RESP 18
[2020-04-17] MEDS ORDERED: ENOXAPARIN 40 MG/0.4 ML SYRINGE SQ SCH (09:00)
[2020-04-17] MEDS: ATORVASTATIN 20 MG TAB PO SCH (09:25)
[2020-04-17] MEDS: THIAMINE 100 MG TAB PO SCH (09:25)
[2020-04-17] MEDS: ASPIRIN 81 MG PO SCH (09:25)
[2020-04-17] MEDS ORDERED: LORazepam 0.5 MG TAB PO PRN (09:36)
--- NOTE | 2020-04-17 11:33 | P.PN ---
Subjective Progress Note Date: 04/17/20 The patient was seen at bedside and he stated that he has not had any further seizure episodes. No further jerking of any of the extremities. I spoke with the patient's nurse and that no further seizure episodes unwitnessed overnight or day at. Objective - Vital Signs Vital signs: Vital Signs Temp 98.3 F 04/17/20 07:00 Pulse 63 04/17/20 08:40 Resp 18 04/17/20 08:40 BP 110/70 04/17/20 07:00 Pulse Ox 93 L 04/17/20 07:00 Intake & Output 04/16/20 04/17/20 04/17/20 18:59 06:59 18:59 Intake Total 1150 Output Total 1100 300 Balance 50 -300 Weight 81.647 kg Intake: Oral 1150 Output: Urine 1100 300 Other: # Voids 3 - Exam GENERAL: The patient is lying in bed and is not in acute distress. NEUROLOGICAL: Higher mental function: The patient is awake, alert, oriented to self, place and time. Patient is following commands. No aphasia and no neglect. Cranial nerves: The pupils are round, equal and reactive to light and accommodation. Visual hallman are full to confrontation throughout. Extraocular movement is intact no nystagmus is noted. Facial sensation is normal to touch throughout. The facial strength is normal throughout. Hearing is normal bilaterally to hand rub. Tongue is midline and moved [id number] without any difficulty. No dysarthria is noted. Shoulder shrug is normal bilaterally. Motor: Gait is deferred. The strength is 5 over 5 throughout. Normal tone and bulk. Cerebellum: Normal finger to nose heel to chin bilaterally. Sensation: Sensation is normal to touch throughout. Reflexes (right/left): 2+ throughout except ankles are 1+ Plantars are downgoing bilaterally. - Labs CBC & Chem 7: 04/15/20 16:12 04/15/20 16:12 Assessment and Plan Assessment: This is a 69-year-old gentleman that presented for the breakthrough seizure. 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 He was seen in the by our neurology team multiple times in the past for breakthrough seizures and it's reported that it's because of alcohol withdrawal or medication noncompliance. Seizures order, came with breakthrough seizure. Likely due to under-treated seizure and maybe component of alcohol withdrawl since last drink is yesterday and he had one drink (drinks every other days 2-3 cars of beer and alcohol level is <10). 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 Alcoholism Occasional noncompliance Plan: Since the Vimpat is expensive and the patient the cannot afford it, therefore discontinue Vimpat. Continue Keppra 1500mg 1 tab bid (reason for the drastic increase is the patient is having seizures on 1000 mg 1 tablet so prior to that that we recommended the patient to be on two medications. So in order to prevent hopefully future recurrent seizures this dose hopefully will control his seizures). An EEG was not performed since patient is back to baseline. Regarding the patient history of stroke I restarted the patient on aspirin 81 mg and Lipitor 20mg daily. Continue thiamine 100 mg daily is showed alcohol use Patient was counseled alcohol cessation. Because of seizures per the [place] DMV, he is restricted from driving for 6 months unless he seizure-free. He's avoiding heavy machinery, climbing the [place] or swimming unassisted and this was notified to him. Patient needs to follow-up with his neurologist (Dr. Finley) as an outpatient and he said he has an appointment at the end of March. The plan was discussed with the patient. From a neurology perspective, the patient seems stable. There is no further neurological work-up. He is clear for discharge. Austen Liu M.D. Neuro-hospitalist Time with Patient: Less than 30
--- NOTE | 2020-04-17 11:56 | P.DS ---
Providers Date of admission: 04/15/20 17:19 Expected date of discharge: 04/17/20 Attending physician: Mitch Costa Consults: 04/15/20 17:21 Consult Physician Urgent Consulting Provider: Austen Liu Consult Reason/Comments: Recurrent seizures, resolved left weakness Do you want consulting provider notified?: Yes Primary care physician: Lucrecia Coleman [facility] Course: Final diagnosis -Break through seizures -Alcohol ABUSE: Counseling was provided -Alcohol withdrawal -Seizure disorder -DVT prophylaxis Discharge disposition Patient is being discharged in a stable condition with guarded prognosis to [facility] for continued rehab. Patient will follow-up with Dr. Singer in the outpatient setting upon discharge. Patient also instructed to follow-up with neurology in the outpatient setting. Patient will continue with Keppra 1500 mg twice daily. Total time taken is greater than 35 minutes. History of present illness This is a 69-year-old male who was recently admitted with seizure and weakness on the left side of the body and was being closely monitored. Patient does have a history of seizures along with alcohol abuse. Patient was seen and evaluated by neurology and recommending Vimpat although patient is unable to afford this medication. Patient has been on Keppra and recommending increasing and will continue with 1500 mg twice daily once discharged. Patient will need to follow- up with primary care provider along with neurologist in the outpatient setting. Need to be week and unsteady and will be going to [facility] today for continued PT/OT therapy. Patient again educated and instructed to avoid alcohol as he drinks daily. Currently no reports of chest pain, shortness of breath, or palpitations. Patient is afebrile. No reports of nausea or vomiting and patient is tolerating diet. Patient will be going to [facility] today. On exam vital signs are stable. Temp is 98.3F, pulse is 63, respirations are 18, blood pressure is 110/70, oxygen saturation is 93% on room air. Cardio S1, S2 are muffled. Respiratory system shows diminished breath sounds at the bases with no wheezing or rhonchi noted. Abdomen is soft and nontender. Nervous system shows diffuse weakness. Please refer to medication reconciliation sheet for a list of medications. Patient Condition at Discharge: Stable Plan - Discharge Summary Discharge Rx Participant: No New Discharge Prescriptions: New Aspirin 81 mg PO DAILY chew LORazepam [Ativan] 0.5 mg PO Q6HR PRN #6 tab PRN Reason: Anxiety levETIRAcetam [Keppra] 1,500 mg PO Q12HR tab Atorvastatin [Lipitor] 20 mg PO DAILY tab Thiamine [Vitamin B-1] 100 mg PO DAILY tab Discontinued levETIRAcetam [Keppra] 1,000 mg PO BID Discharge Medication List Aspirin 81 mg PO DAILY chew 04/17/20 [Rx] Atorvastatin [Lipitor] 20 mg PO DAILY tab 04/17/20 [Rx] LORazepam [Ativan] 0.5 mg PO Q6HR PRN #6 tab 04/17/20 [Rx] Thiamine [Vitamin B-1] 100 mg PO DAILY tab 04/17/20 [Rx] levETIRAcetam [Keppra] 1,500 mg PO Q12HR tab 04/17/20 [Rx] Follow up Appointment(s)/Referral(s): Thony Singer MD [Primary Care Provider] - 1-2 days Activity/Diet/Wound Care/Special Instructions: wants flu vaccine before discharge Patient is going to [facility] today Activity as tolerated Continue heart healthy diet Continue with increased dose of Keppra Follow-up with primary care provider upon discharge Follow-up with neurology outpatient Continue to avoid alcohol Discharge Disposition: TRANSFER TO SNF/ECF
[2020-04-17] MEDS ORDERED: LORazepam 0.5 MG TAB PO SCH (12:00)
[2020-04-17 15:12] VITALS: BP 125/88; PULSE 64; TEMP 98.8
== END 2020-04-17 19:00 | disposition home health service (06) | DRG 101 ==
LOC: EC 15:32 → 4SSUR 17:19 → 6NMEDSUR 04-16 06:32 → 5NMEDONC 04-16 18:27
PROVIDERS: ADMIT Hospitalist; ATTEND Hospitalist
DX: G40.109 Localization-related (focal) (partial) symptomatic epilepsy and epileptic syndromes with simple partial seizures, not intractable, without status epilepticus (principal); G83.84 Todd's paralysis (postepileptic); G93.89 Other specified disorders of brain; I44.7 Left bundle-branch block, unspecified; I49.3 Ventricular premature depolarization; R00.0 Tachycardia, unspecified; I25.2 Old myocardial infarction; T42.6X6A Underdosing of other antiepileptic and sedative-hypnotic drugs, initial encounter; Z91.128 Patient's intentional underdosing of medication regimen for other reason; Z91.19 Patient's noncompliance with other medical treatment and regimen; F10.10 Alcohol abuse, uncomplicated; Y90.0 Blood alcohol level of less than 20 mg/100 ml; F17.210 Nicotine dependence, cigarettes, uncomplicated; Z71.6 Tobacco abuse counseling; Z71.41 Alcohol abuse counseling and surveillance of alcoholic; Z79.899 Other long term (current) drug therapy; Z86.73 Personal history of transient ischemic attack (TIA), and cerebral infarction without residual deficits; Z87.01 Personal history of pneumonia (recurrent); Z87.19 Personal history of other diseases of the digestive system; Z87.81 Personal history of (healed) traumatic fracture; Z83.3 Family history of diabetes mellitus; Z81.1 Family history of alcohol abuse and dependence
CPT/HCPCS: 36415; 70450; 80053; 80177; 80306; 80320; 81001; 83735; 85025; 93005; 96365; 96375; 99285

== ENCOUNTER 2020-06-17 18:32 | Inpatient (IN) | payer MEDICARE ==
[2020-06-17] MEDS ORDERED: IBUPROFEN 600 MG TAB PO STA (19:20)
[2020-06-17] MEDS ORDERED: ACETAMINOPHEN TAB 500 MG TAB PO STA (19:20)
[2020-06-17 20:01] LABS: Basophils % (A) 0 %; Eosinophils # (A) 0.1 k/uL (0-0.7); Eosinophils % (A) 1 %; HGB 13.3 gm/dL (13.0-17.5); Lymphocytes % (A) 10 %; MCH 31.6 pg (25.0-35.0); MCHC 34.1 g/dL (31.0-37.0); MCV 92.5 fL (80.0-100.0); Mean Platelet Volume 8.5; Monocytes # (A) 0.5 k/uL (0-1.0); Monocytes % (A) 5 %; Neutrophils # (A) 8.5 k/uL (1.3-7.7); Neutrophils % (A) 83 %; Platelet Count 246 k/uL (150-450); RBC 4.22 m/uL (4.30-5.90); RDW 13.5 % (11.5-15.5); WBC 10.3 k/uL (3.8-10.6)
[2020-06-17] MEDS: SODIUM CHLORIDE 0.9% 500 ML 500 ML IV SCH ×2 (20:05→20:06)
[2020-06-17 20:13] LABS: ALT 12 U/L (4-49); AST 36 U/L (17-59); African American GFR (CKD) >90 (>60 ml/min/1.73 sqM); Albumin 4.3 g/dL (3.5-5.0); Alkaline Phosphatase 134 U/L (38-126); Anion Gap 10 mmol/L; Blood Urea Nitrogen 9 mg/dL (9-20); Calcium 9.2 mg/dL (8.4-10.2); Carbon Dioxide 28 mmol/L (22-30); Chloride 99 mmol/L (98-107); Glucose 101 mg/dL (74-99); INR 0.9 (<1.2); Non-African American GFR(CKD) >90 (>60 ml/min/1.73 sqM); Partial Thromboplastin Time 25.6 sec (22.0-30.0); Prothrombin Time 10.1 sec (9.0-12.0); Sodium 137 mmol/L (137-145); Total Bilirubin 0.6 mg/dL (0.2-1.3); Total Protein 7.3 g/dL (6.3-8.2)
[2020-06-17] MEDS ORDERED: LORazepam 2 MG/ML INJ IV STA ×4 (20:39→23:28)
[2020-06-17 20:45] LABS: Potassium 4.1 mmol/L (3.5-5.1)
[2020-06-17 20:55] LABS: Appearance,Urine Clear (Clear); Bilirubin,Urine Negative (Negative); Blood,Urine Negative (Negative); Color,Urine Yellow; Glucose,Urine (UA) Negative (Negative); Ketones,Urine Negative (Negative); Leukocyte Esterase,Urine Negative (Negative); Nitrite,Urine Negative (Negative); Protein,Urine Trace (Negative); Specific Gravity,Urine 1.015 (1.001-1.035); Urobilinogen,Urine <2.0 mg/dL (<2.0)
--- NOTE | 2020-06-17 21:17 | XR ---
EXAMINATION TYPE: XR chest 1V DATE OF EXAM: 06/17/2020 COMPARISON: 01/08/2020. HISTORY: Seizure. TECHNIQUE: Single frontal view of the chest is obtained. FINDINGS: Stable bilateral chest wall deformities with associated mild chronic opacity. There is no definite new airspace opacity, pleural effusion, or pneumothorax seen. The cardiac silhouette size i s within normal limits. The osseous structures are stable. Redemonstrated shrapnel overlying the ri ght scapula. IMPRESSION: No acute process.
[2020-06-17] MEDS ORDERED: PHENYTOIN SODIUM INJ 500 MG in SODIUM CHLORIDE 0.9% 100 ML IVPB STA (21:27)
[2020-06-17] MEDS ORDERED: PHENYTOIN SODIUM INJ 1,000 MG in SODIUM CHLORIDE 0.9% 100 ML IVPB STA (21:38)
--- NOTE | 2020-06-17 22:11 | CT ---
EXAMINATION TYPE: CT brain wo con DATE OF EXAM: 06/17/2020 COMPARISON: 04/15/2020 HISTORY: ams, seizure CT DLP: 1231.4 mGycm Automated exposure control for dose reduction was used. There is cerebral cortical atrophy. There is no mass effect nor midline shift. There is no evidence o f intracranial hemorrhage. There is a 4 cm area of hypodensity in the cortex of the right posterior t emporal lobe consistent with subacute infarct. There is mucosal thickening in the right maxillary si nus with expansion into the nasopharynx. There is mild wall thickening of the maxillary sinus suggest kadie of sclerosis and this is probably a mucocele. Unchanged. IMPRESSION: There is right posterior temporal lobe infarct without significant change in size compared to old exa m. No hemorrhage. Expansile mass in the right maxillary sinus consistent with a mucocele unchanged.
[2020-06-17] MEDS ORDERED: PHENYTOIN SODIUM INJ 500 MG in SODIUM CHLORIDE 0.9% 100 ML IVPB ONE (22:15)
--- NOTE | 2020-06-17 23:03 | ED ---
Seizure HPI - General Source: patient, EMS Mode of arrival: EMS <Sheree Juares - Last Filed: 06/17/20 23:21> <Prem Mccrary - Last Filed: 06/18/20 00:05> - General Chief Complaint: Seizure Stated Complaint: Poss Seizure Time Seen by Provider: 06/17/20 19:15 - History of Present Illness Initial Comments: 70-year-old male patient presents to the emergency department today for evaluation after having what he believed was a seizure at home. Patient states that he had lip tremors that lasted several minutes. Patient states he has had seizures like this in the past. He does take Keppra says he takes it twice daily. States that he has been taking his medications as directed. Upon arrival patient did have a fever, he was unaware of this. Denies any blurred or double vision. Denies any recent head injury. Denies numbness, tingling, weakness to his extremities. Denies any cough, congestion, sore throat, diarrhea, abdominal pain. States he does have a headache right now and that he does generally get headaches after he has a seizure. Patient denies any recent rash, shortness of breath, chest pain, nausea, vomiting, diarrhea, constipation, back pain, dizziness, hematuria, dysuria, urinary urgency, urinary frequency, or any other complaints. (Sheree Juares) - Related Data Previous Rx's Medication Instructions Recorded Aspirin 81 mg PO DAILY 30 Days #30 chewable 04/17/20 Atorvastatin Calcium [Lipitor] 20 mg PO DAILY 30 Days #30 tab 04/17/20 Thiamine [Vitamin B-1] 100 mg PO DAILY 30 Days #30 tablet 04/17/20 levETIRAcetam [Keppra] 1,000 mg PO Q12HR 30 Days #60 tab 04/17/20 levETIRAcetam [Keppra] 500 mg PO BID 30 Days #60 tab 04/17/20 Allergies Allergy/AdvReac Type Severity Reaction Status Date / Time No Known Allergies Allergy Verified 06/17/20 22:42 Review of Systems ROS Other: All systems not noted in ROS Statement are negative. <Sheree Juares - Last Filed: 06/17/20 23:21> ROS Other: All systems not noted in ROS Statement are negative. <Prem Mccrary - Last Filed: 06/18/20 00:05> ROS Statement: Those systems with pertinent positive or pertinent negative responses have been documented in the HPI. Past Medical History Past Medical History: Myocardial Infarction (MS), Pneumonia, Seizure Disorder Additional Past Medical History / Comment(s): ETOH abuse with past withdrawal DTs and seizures, last seizure 01/08/20, pt states he is a fall hazard but has not fallen in past 6 months, pt states he had a "slight" MS approximately 2-3 years ago and was seen at [facility] and shipped to [facility] but states had no cardiac intervention, past R foot fracture which did not heal, past perianal abscess, Last Myocardial Infarction Date:: 2017 History of Any Multi-Drug Resistant Organisms: None Reported Past Surgical History: No Surgical Hx Reported Additional Past Surgical History / Comment(s): Pt states he has never had surgery Past Anesthesia/Blood Transfusion Reactions: No Reported Reaction Additional Past Anesthesia/Blood Transfusion Reaction / Comment(s): "never received any blood transfusions" Past Psychological History: No Psychological Hx Reported Smoking Status: Current every day smoker Past Alcohol Use History: Rare Past Drug Use History: None Reported - Past Family History Father History Unknown: Yes Family Medical History: Diabetes Mellitus Additional Family Medical History / Comment(s): Father was an alcoholic. Mother History Unknown: Yes Family Medical History: Diabetes Mellitus <Sheree Juares - Last Filed: 06/17/20 23:21> General Exam General appearance: alert, in no apparent distress, other (This is a well- developed, well-nourished adult male patient in no acute distress. Vital signs upon presentation are temperature 102.2F oral, pulse 76, respirations 18, blood pressure 162/108, pulse ox 98% on room air.) Eye exam: Present: normal appearance, PERRL, EOMI. Absent: scleral icterus, conjunctival injection, periorbital swelling ENT exam: Present: normal exam, normal oropharynx, mucous membranes moist, TM's normal bilaterally Respiratory exam: Present: normal lung sounds bilaterally. Absent: respiratory distress, wheezes, rales, rhonchi, stridor Cardiovascular Exam: Present: regular rate, normal rhythm, normal heart sounds. Absent: systolic murmur, diastolic murmur, rubs, gallop, clicks GI/Abdominal exam: Present: soft, normal bowel sounds. Absent: distended, tenderness, guarding, rebound, rigid Neurological exam: Present: alert, oriented X3, CN II-XII intact Psychiatric exam: Present: normal affect, normal mood Skin exam: Present: warm, dry, intact, normal color. Absent: rash <Sheree Juares - Last Filed: 06/17/20 23:21> Course <Prem Mccrary - Last Filed: 06/18/20 00:05> Vital Signs 06/17/20 06/17/20 06/17/20 18:39 19:47 22:33 Temperature 101.4 F H 102.2 F H 99.8 F H Pulse Rate 76 110 H Respiratory 18 20 Rate Blood Pressure 162/108 158/78 O2 Sat by Pulse 98 96 Oximetry - Reevaluation(s) Reevaluation #1: 06/17/20 23:13 Patient reevaluated by myself, Dr. Mccrary. Patient resting comfortably in bed with left upper extremity patient only with occasional tremor. Patient with somewhat elevated temperature that could be related. tremor. Patient is verbal and appropriate. Dr. Dunn has been paged for admission covering for Dr. Blanca. Dilantin started. Additional Ativan provided. Neurology will be placed on consult. Patient has no meningismus. 06/17/20 23:19 Case was discussed with Dr. Dunn, who will admit. Consult will also be placed for infectious disease 06/18/20 00:04 Patient with only intermittent mild tremor. Patient still with some fever at which could be related. Lumbar puncture done to evaluate for meningitis. Patient does verbally consent. Patient unable to sign. No complications with procedure. Fluid is clear. (Prem Mccrary) Procedures - Lumbar Puncture Consent Obtained: verbal consent, emergent situation Indication for Procedure: headache, fever work up Patient Position: right lateral decubitus Skin Prep: Povidone-Iodine 1% Local Anesthetic Used: Lidocaine 1% Spinal Needle Gauge: 22G Interspace Used: L4-L5 Fluid Initially Obtained: clear Complications: none Patient Tolerated Procedure: well, no complications <Prem Mccrary - Last Filed: 06/18/20 00:05> Medical Decision Making - Lab Data Result diagrams: 06/17/20 19:54 06/17/20 19:54 - Radiology Data Radiology results: report reviewed, image reviewed <Sheree Juares - Last Filed: 06/17/20 23:21> - Lab Data Result diagrams: 06/17/20 19:54 06/17/20 19:54 <Prem Mccrary - Last Filed: 06/18/20 00:05> - Medical Decision Making 70-year-old male patient presented to the emergency department today for evaluation of possible seizure. Upon arrival he was found to be febrile. Labs reviewed and are unremarkable. Patient did have 2 seizures exhibiting clonic, type movements each lasting around 2 minutes. He was given Ativan both times. He also exhibited focal seizure-like activity to the left arm and shoulder, was given Ativan after that episode. We did start Dilantin. He does take Keppra at home. CT of the brain was obtained and showed no new abnormalities. Patient will be admitted to the hospital for further evaluation by neurology and also Dr. Osuna infectious disease for further evaluation of his elevated temperature. Case discussed with my attending Dr. Mccrary was also in to evaluate the patient. (Sheree Juares) - Lab Data Lab Results 06/17/20 06/17/20 06/17/20 Range/Units 19:54 19:54 19:54 WBC 10.3 (3.8-10.6) k/uL RBC 4.22 L (4.30-5.90) m/uL Hgb 13.3 (13.0-17.5) gm/dL Hct 39.0 (39.0-53.0) % MCV 92.5 (80.0-100.0) fL MCH 31.6 (25.0-35.0) pg MCHC 34.1 (31.0-37.0) g/dL RDW 13.5 (11.5-15.5) % Plt Count 246 (150-450) k/uL MPV 8.5 Neutrophils % 83 % Lymphocytes % 10 % Monocytes % 5 % Eosinophils % 1 % Basophils % 0 % Neutrophils # 8.5 H (1.3-7.7) k/uL Lymphocytes # 1.0 (1.0-4.8) k/uL Monocytes # 0.5 (0-1.0) k/uL Eosinophils # 0.1 (0-0.7) k/uL Basophils # 0.0 (0-0.2) k/uL PT 10.1 (9.0-12.0) sec INR 0.9 (<1.2) APTT 25.6 (22.0-30.0) sec Sodium 137 (137-145) mmol/L Potassium 4.1 (3.5-5.1) mmol/L Chloride 99 (98-107) mmol/L Carbon Dioxide 28 (22-30) mmol/L Anion Gap 10 mmol/L BUN 9 (9-20) mg/dL Creatinine 0.74 (0.66-1.25) mg/dL Est GFR (CKD-EPI)AfAm >90 (>60 ml/min/1.73 sqM) Est GFR (CKD-EPI)NonAf >90 (>60 ml/min/1.73 sqM) Glucose 101 H (74-99) mg/dL Plasma Lactic Acid Tommy (0.7-2.0) mmol/L Calcium 9.2 (8.4-10.2) mg/dL Total Bilirubin 0.6 (0.2-1.3) mg/dL AST 36 (17-59) U/L ALT 12 (4-49) U/L Alkaline Phosphatase 134 H (38-126) U/L Total Protein 7.3 (6.3-8.2) g/dL Albumin 4.3 (3.5-5.0) g/dL Urine Color Urine Appearance (Clear) Urine pH (5.0-8.0) Ur Specific [place] (1.001-1.035) Urine Protein (Negative) Urine Glucose (UA) (Negative) Urine Ketones (Negative) Urine Blood (Negative) Urine Nitrite (Negative) Urine Bilirubin (Negative) Urine Urobilinogen (<2.0) mg/dL Ur Leukocyte Esterase (Negative) Coronavirus (PCR) (Not Detectd) Influenza Type A RNA (Not Detectd) Influenza Type B (PCR) (Not Detectd) 06/17/20 06/17/20 06/17/20 Range/Units 19:54 20:12 20:48 WBC (3.8-10.6) k/uL RBC (4.30-5.90) m/uL Hgb (13.0-17.5) gm/dL Hct (39.0-53.0) % MCV (80.0-100.0) fL MCH (25.0-35.0) pg MCHC (31.0-37.0) g/dL RDW (11.5-15.5) % Plt Count (150-450) k/uL MPV Neutrophils % % Lymphocytes % % Monocytes % % Eosinophils % % Basophils % % Neutrophils # (1.3-7.7) k/uL Lymphocytes # (1.0-4.8) k/uL Monocytes # (0-1.0) k/uL Eosinophils # (0-0.7) k/uL Basophils # (0-0.2) k/uL PT (9.0-12.0) sec INR (<1.2) APTT (22.0-30.0) sec Sodium (137-145) mmol/L Potassium (3.5-5.1) mmol/L Chloride (98-107) mmol/L Carbon Dioxide (22-30) mmol/L Anion Gap mmol/L BUN (9-20) mg/dL Creatinine (0.66-1.25) mg/dL Est GFR (CKD-EPI)AfAm (>60 ml/min/1.73 sqM) Est GFR (CKD-EPI)NonAf (>60 ml/min/1.73 sqM) Glucose (74-99) mg/dL Plasma Lactic Acid Tommy 1.2 (0.7-2.0) mmol/L Calcium (8.4-10.2) mg/dL Total Bilirubin (0.2-1.3) mg/dL AST (17-59) U/L ALT (4-49) U/L Alkaline Phosphatase (38-126) U/L Total Protein (6.3-8.2) g/dL Albumin (3.5-5.0) g/dL Urine Color Yellow Urine Appearance Clear (Clear) Urine pH 6.0 (5.0-8.0) Ur Specific [place] 1.015 (1.001-1.035) Urine Protein Trace H (Negative) Urine Glucose (UA) Negative (Negative) Urine Ketones Negative (Negative) Urine Blood Negative (Negative) Urine Nitrite Negative (Negative) Urine Bilirubin Negative (Negative) Urine Urobilinogen <2.0 (<2.0) mg/dL Ur Leukocyte Esterase Negative (Negative) Coronavirus (PCR) Not Detected (Not Detectd) Influenza Type A RNA (Not Detectd) Influenza Type B (PCR) (Not Detectd) 06/17/20 Range/Units 22:46 WBC (3.8-10.6) k/uL RBC (4.30-5.90) m/uL Hgb (13.0-17.5) gm/dL Hct (39.0-53.0) % MCV (80.0-100.0) fL MCH (25.0-35.0) pg MCHC (31.0-37.0) g/dL RDW (11.5-15.5) % Plt Count (150-450) k/uL MPV Neutrophils % % Lymphocytes % % Monocytes % % Eosinophils % % Basophils % % Neutrophils # (1.3-7.7) k/uL Lymphocytes # (1.0-4.8) k/uL Monocytes # (0-1.0) k/uL Eosinophils # (0-0.7) k/uL Basophils # (0-0.2) k/uL PT (9.0-12.0) sec INR (<1.2) APTT (22.0-30.0) sec Sodium (137-145) mmol/L Potassium (3.5-5.1) mmol/L Chloride (98-107) mmol/L Carbon Dioxide (22-30) mmol/L Anion Gap mmol/L BUN (9-20) mg/dL Creatinine (0.66-1.25) mg/dL Est GFR (CKD-EPI)AfAm (>60 ml/min/1.73 sqM) Est GFR (CKD-EPI)NonAf (>60 ml/min/1.73 sqM) Glucose (74-99) mg/dL Plasma Lactic Acid Tommy (0.7-2.0) mmol/L Calcium (8.4-10.2) mg/dL Total Bilirubin (0.2-1.3) mg/dL AST (17-59) U/L ALT (4-49) U/L Alkaline Phosphatase (38-126) U/L Total Protein (6.3-8.2) g/dL Albumin (3.5-5.0) g/dL Urine Color Urine Appearance (Clear) Urine pH (5.0-8.0) Ur Specific [place] (1.001-1.035) Urine Protein (Negative) Urine Glucose (UA) (Negative) Urine Ketones (Negative) Urine Blood (Negative) Urine Nitrite (Negative) Urine Bilirubin (Negative) Urine Urobilinogen (<2.0) mg/dL Ur Leukocyte Esterase (Negative) Coronavirus (PCR) (Not Detectd) Influenza Type A RNA Not Detected (Not Detectd) Influenza Type B (PCR) Not Detected (Not Detectd) - Radiology Data CT brain without contrast was obtained. Report was reviewed in its entirety. Impression by Dr. Mcclelland shows a right posterior temporal lobe infarct without significant change in size compared to old exam. No hemorrhage. Expands mass in the right maxilla sinus consistent with a mucocele unchanged. One view x-ray of the chest is obtained. Report was reviewed in its entirety. Impression by Dr. Long shows no acute process. (Sheree Juares) Disposition Decision to Admit Reason: Admit from EC Decision Date: 06/17/20 Decision Time: 23:26 <Sheree Juares - Last Filed: 06/17/20 23:21> <Prem Mccrary - Last Filed: 06/18/20 00:05> Clinical Impression: Recurrent seizures, Fever Disposition: ADMITTED IP TO THIS HOSP Condition: Serious
[2020-06-17] MEDS ORDERED: LORazepam 2 MG/ML INJ IV PRN (23:18)
[2020-06-17] MEDS ORDERED: ACETAMINOPHEN TAB 325 MG TAB PO PRN (23:18)
[2020-06-17] MEDS ORDERED: ONDANSETRON 4 MG/2 ML VIAL IVP PRN (23:18)
[2020-06-17] MEDS ORDERED: NALOXONE 0.4 MG/ML 1 ML VIAL IV PRN (23:18)
[2020-06-17] MEDS ORDERED: cefTRIAXone IN SWFI 1,000 MG/10 ML SYRINGE IVP STA (23:22)
[2020-06-17] MEDS ORDERED: VANCOMYCIN IV PER PHARMACY 1 EACH MISC MISCELLANE PRN (23:23)
[2020-06-17] MEDS ORDERED: VANCOMYCIN 1,500 MG in SODIUM CHLORIDE 0.9% 250 ML IVPB STA (23:28)
[2020-06-17] MEDS ORDERED: levETIRAcetam IV 1,000 MG in SALINE 1 100ML.BAG IVPB STA (23:29)
[2020-06-17] MEDS ORDERED: levETIRAcetam IV 1,500 MG in SALINE 1 100ML.BAG IVPB STA (23:29)
[2020-06-18] MEDS: SODIUM CHLORIDE 0.9% IVPB SCH ×3 (00:46→16:17)
[2020-06-18] MEDS: ACYCLOVIR SODIUM IVPB SCH ×3 (00:46→16:17)
[2020-06-18 00:49] LABS: Glucose,CSF 61 mg/dL (40-70); Total Protein,CSF 56 mg/dL (12-60)
[2020-06-18 01:35] LABS: Appearance,CSF Clear; CSF Tube Number 4; CSF Tube Volume 0.8
[2020-06-18 01:36] LABS: Nucleated Cells, CSF 0 u/L (0-5); Red Blood Cell,CSF 1 u/L (0-10)
[2020-06-18] MEDS ORDERED: LORazepam 2 MG/ML INJ IV PRN ×2 (03:37→17:31)
[2020-06-18] MEDS ORDERED: THIAMINE 100 MG/ML 2 ML VIAL IM STA (03:37)
[2020-06-18] MEDS: LORazepam 2 MG/ML INJ IV PRN ×5 (03:59→23:00)
[2020-06-18] MEDS ORDERED: levETIRAcetam 500 MG TAB PO SCH (09:00)
[2020-06-18] MEDS ORDERED: VANCOMYCIN 1,500 MG in SODIUM CHLORIDE 0.9% 250 ML IVPB SCH (09:00)
[2020-06-18] MEDS ORDERED: PANTOPRAZOLE 40 MG/10 ML VIAL IVP SCH (10:45)
--- NOTE | 2020-06-18 11:14 | XR ---
EXAMINATION TYPE: XR chest 1V DATE OF EXAM: 06/18/2020 COMPARISON: Chest x-ray 06/17/[address] chest 12/15/2018 HISTORY: Pneumonia TECHNIQUE: Single frontal view of the chest is obtained. FINDINGS: Findings are similar to prior exam. Metallic densities present over the mediastinum in the sternum and right shoulder region as on prior. Aorta is dense. No pneumothorax or pleural effusion. Lungs show similar appearance, there are calcified pleural plaques, nodular densities are present. IMPRESSION: No acute process. Correlate for asbestos related disease, posttraumatic changes
[2020-06-18] MEDS: THIAMINE 100 MG TAB PO SCH (12:02)
[2020-06-18] MEDS: NICOTINE 21MG/24HR PATCH TRANSDERM SCH (12:10)
--- NOTE | 2020-06-18 12:21 | P.HPIM ---
History of Present Illness 70-year-old the male was brought in by his the girlfriend as she witnessed the seizure patient is a poor historian and unable to provide much of history to me. She appears to be having alcohol withdrawals at this time patient's is a he drinks alternate days but they've it appears like patient does drink almost everyday patient is alert oriented 2-3. Patient is able to provide history but externally poor historian. Patient denied any focal weakness. Patient was evaluated by neurology patient is taking 1500 mg twice a day. Probably Wednesday initiated neurology is not recommending an EEG at this time and did have high-grade fever because of which LP was done LP was negative although there is no source of sepsis at this time. Acyclovir, ceftriaxone and vancomycin will be discontinued and infectious disease will evaluate the patient. Is probably related to his seizure itself. Review of Systems REVIEW OF SYSTEMS: CONSTITUTIONAL: No fever, no malaise, no fatigue. HEENT: No recent visual problems or hearing problems. Denied any sore throat. CARDIOVASCULAR: No chest pain, orthopnea, PND, no palpitations, no syncope. PULMONARY: No shortness of breath, no cough, no hemoptysis. GASTROINTESTINAL: No diarrhea, no nausea, no vomiting, no abdominal pain. NEUROLOGICAL: No headaches, no weakness, no numbness. HEMATOLOGICAL: Denies any bleeding or petechiae. GENITOURINARY: Denies any burning micturition, frequency, or urgency. MUSCULOSKELETAL/RHEUMATOLOGICAL: Denies any joint pain, swelling, or any muscle pain. ENDOCRINE: Denies any polyuria or polydipsia. The rest of the 14-point review of systems is negative. Past Medical History Past Medical History: Hyperlipidemia, Myocardial Infarction ([place]), Pneumonia, Seizure Disorder Additional Past Medical History / Comment(s): ETOH abuse with past withdrawal DTs and seizures, last seizure06/18/20, pt states he is a fall hazard but has not fallen in past 6 months, pt states he had a "slight" [place] approximately 2-3 years ago and was seen at [facility] and shipped to [facility] but states had no cardiac intervention, past R foot fracture which did not heal, past perianal abscess, Last Myocardial Infarction Date:: 2017 History of Any Multi-Drug Resistant Organisms: None Reported Past Surgical History: No Surgical Hx Reported Additional Past Surgical History / Comment(s): Pt states he has never had surgery Past Anesthesia/Blood Transfusion Reactions: Unable to Obtain Additional Past Anesthesia/Blood Transfusion Reaction / Comment(s): Pt states he has never had surgery or a blood transfusion. Smoking Status: Current every day smoker - Past Family History Father History Unknown: Yes Family Medical History: Diabetes Mellitus Additional Family Medical History / Comment(s): Father was an alcoholic. Mother History Unknown: Yes Family Medical History: Diabetes Mellitus Additional Family Medical History / Comment(s): Mother is . Medications and Allergies Home Medications Medication Instructions Recorded Confirmed Type Aspirin 81 mg PO DAILY 30 Days #30 chewable 04/17/20 06/17/20 Rx Atorvastatin Calcium [Lipitor] 20 mg PO DAILY 30 Days #30 tab 04/17/20 06/17/20 Rx Thiamine [Vitamin B-1] 100 mg PO DAILY 30 Days #30 tablet 04/17/20 06/17/20 Rx levETIRAcetam [Keppra] 1,000 mg PO Q12HR 30 Days #60 tab 04/17/20 06/17/20 Rx levETIRAcetam [Keppra] 500 mg PO BID 30 Days #60 tab 04/17/20 06/17/20 Rx Allergies Allergy/AdvReac Type Severity Reaction Status Date / Time No Known Allergies Allergy Verified 06/17/20 22:42 Physical Exam Vitals: Vital Signs Temp Pulse Pulse Resp BP BP Pulse Ox 06/18/20 08:00 97 F L 88 15 128/84 96 06/18/20 04:00 97.9 F 64 18 108/58 98 06/18/20 00:34 99.3 F 79 16 106/65 98 06/17/20 22:33 99.8 F H 110 H 20 158/78 96 06/17/20 19:47 102.2 F H 06/17/20 18:39 101.4 F H 76 18 162/108 98 Intake and Output 06/17/20 06/18/20 06/18/20 22:59 06:59 14:59 Other: Voiding Method Diaper # Voids 1 Weight 83.915 kg 83.915 kg PHYSICAL EXAMINATION: GENERAL: The patient is alert and oriented x3, not in any acute distress. Well developed, well nourished. He does have tremors HEENT: Pupils are round and equally reacting to light. EOMI. No scleral icterus. No conjunctival pallor. Normocephalic, atraumatic. No pharyngeal erythema. No thyromegaly. CARDIOVASCULAR: S1 and S2 present. No murmurs, rubs, or gallops. PULMONARY: Chest is clear to auscultation, no wheezing or crackles. ABDOMEN: Soft, nontender, nondistended, normoactive bowel sounds. No palpable organomegaly. MUSCULOSKELETAL: No joint swelling or deformity. EXTREMITIES: No cyanosis, clubbing, or pedal edema. NEUROLOGICAL: She has significant generalized weakness no focal weakness tremors. SKIN: No rashes. Results CBC & Chem 7: 06/17/20 19:54 06/17/20 19:54 Labs: Abnormal Lab Results - Last 24 Hours (Table) 06/17/20 06/17/20 06/17/20 Range/Units 19:54 19:54 20:48 RBC 4.22 L (4.30-5.90) m/uL Neutrophils # 8.5 H (1.3-7.7) k/uL Glucose 101 H (74-99) mg/dL Alkaline Phosphatase 134 H (38-126) U/L Urine Protein Trace H (Negative) Microbiology - Last 24 Hours (Table) 06/18/20 00:09 CSF Gram Stain - Preliminary Cerebral Spinal Fluid CSF Culture - Preliminary Thrombosis Risk Factor Assmnt - Choose All That Apply Any of the Below Risk Factors Present?: Yes Other Risk Factors: Yes Each Risk Factor Represents 2 Points: Age 61-74 years Other congenital or acquired thrombophilia - If yes, enter type in comment: No Thrombosis Risk Factor Assessment Total Risk Factor Score: 2 Thrombosis Risk Factor Assessment Level: Low Risk Assessment and Plan Plan: -Breakthrough seizures: Patient is on Keppra and patient is being continued on Keppra Levels will be obtained neurology evaluated the patient. Patient mostly has all call withdrawal seizures -Fever problems with seizures no evidence of sepsis at this time LP is not consistent with meningitis or encephalitis. 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 -Hyperlipidemia -Generalized weakness: Secondary to chronic alcoholism may need placement at to subacute rehabitation. Physical therapy and outpatient therapy were consulted DVT prophylaxis with Lovenox GI prophylaxis with Protonix
--- NOTE | 2020-06-18 12:36 | P.CNNES ---
History of Present Illness Consult date: 06/18/20 Requesting physician: Sheree Juares Reason for Consult: Seizures History of Present Illness: Patient is a 70-year-old male came to the hospital yesterday at 6:32 PM by ambulance for possible seizures at home. Patient states that he came to the hospital because he has "a lot of seizures yesterday". Patient lives with his girlfriend Kelly. Patient not able to provide any history. EMS flow sheet not available in the chart. I spoke to patient's girlfriend Kelly, who states that patient told her that he was feeling as if a seizure was coming his lips were quivering. He told her to call 911. She states that patient takes medication regularly, does not miss the dose. Patient follows up with Dr. Austen Longoria. Vimpat was discontinued as it was very expensive and patient was not able to afford it. Vital signs on arrival blood pressure 162/108, pulse rate 76, temperature 101.4, which went up to 102.2. Patient's blood test shows normal WBC count, with mild left shift. PT/PTT normal, CMP normal, UA negative. Reed virus PCR negative. Influenza screen negative. Patient underwent spinal fluid examination in the ER, in which the white cells were 0, RBC 1, total protein 56 (12-60), glucose 61 all normal. Computed tomography scan of the head showed right posterior temporal lobe infarct without significant change in size compared to old examination from 04/15/2020. No hemorrhage. 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 Chest x-ray showed no acute process Patient takes Keppra 1500 mg twice a day as per his home medication list, aspirin 81 mg, Lipitor 20 mg and thiamine. Vimpat was stopped because he was not able to afford it. Patient's girlfriend states that he drinks alcohol occasionally, not heavily. Not every day. She states that sometimes he uses his walker, does not have a cane. Review of Systems Patient denies headache. ROS unobtainable: due to mental status Past Medical History Past Medical History: Myocardial Infarction ([place]), Pneumonia, Seizure Disorder Additional Past Medical History / Comment(s): ETOH abuse with past withdrawal DTs and seizures, last seizure 01/08/20, pt states he is a fall hazard but has not fallen in past 6 months, pt states he had a "slight" [place] approximately 2-3 years ago and was seen at [facility] and shipped to [facility] but states had no cardiac intervention, past R foot fracture which did not heal, past perianal abscess, Last Myocardial Infarction Date:: 2017 History of Any Multi-Drug Resistant Organisms: None Reported Past Surgical History: No Surgical Hx Reported Additional Past Surgical History / Comment(s): Pt states he has never had surgery Past Anesthesia/Blood Transfusion Reactions: No Reported Reaction Additional Past Anesthesia/Blood Transfusion Reaction / Comment(s): "never received any blood transfusions" Past Psychological History: No Psychological Hx Reported Smoking Status: Current every day smoker Past Alcohol Use History: Rare Past Drug Use History: None Reported - Past Family History Father History Unknown: Yes Family Medical History: Diabetes Mellitus Additional Family Medical History / Comment(s): Father was an alcoholic. Mother History Unknown: Yes Family Medical History: Diabetes Mellitus Medications and Allergies Home Medications Medication Instructions Recorded Confirmed Type Aspirin 81 mg PO DAILY 30 Days #30 chewable 04/17/20 06/17/20 Rx Atorvastatin Calcium [Lipitor] 20 mg PO DAILY 30 Days #30 tab 04/17/20 06/17/20 Rx Thiamine [Vitamin B-1] 100 mg PO DAILY 30 Days #30 tablet 04/17/20 06/17/20 Rx levETIRAcetam [Keppra] 1,000 mg PO Q12HR 30 Days #60 tab 04/17/20 06/17/20 Rx levETIRAcetam [Keppra] 500 mg PO BID 30 Days #60 tab 04/17/20 06/17/20 Rx Allergies Allergy/AdvReac Type Severity Reaction Status Date / Time No Known Allergies Allergy Verified 06/17/20 22:42 Physical Examination - Vital Signs Vital Signs: Vital Signs Temp Pulse Resp BP Pulse Ox 06/18/20 04:00 97.9 F 64 18 108/58 98 06/18/20 00:34 99.3 F 79 16 106/65 98 06/17/20 22:33 99.8 F H 110 H 20 158/78 96 06/17/20 19:47 102.2 F H 06/17/20 18:39 101.4 F H 76 18 162/108 98 Intake and Output 06/17/20 06/18/20 06/18/20 22:59 06:59 14:59 Other: Weight 83.915 kg On examination patient is an elderly male, laying in the bed, appears confused. Patient does not know what month is it. States it is 2018. He thinks today is Wednesday. He could not tell name of the current president. He does know that he is in [facility]. Speech and language functions appears normal. No aphasia or dysarthria. Cranial nervespupils are round and reacting, visual hallman appears full. Face is symmetric and tongue protrudes the midline. Palatal elevation normal, hearing is slightly decreased and shoulder shrug normal. Facial sensation is normal. On muscle strength testing there is no pronator drift and the strength appears normal in the arms. He appears fairly equal in the lower limbs. Patient did not cooperate well. Sensory touch is equal. No ataxia for [id number] testing. Reflexes are 1+ and plantars downgoing. Tone of muscles normal, patient is somewhat malnutriti on. On general examination there is no carotid bruit or murmur, peripheral pulses are present. No peripheral edema. Abdomen is soft. Chest is clear. Results - Laboratory Findings CBC and BMP: 06/17/20 19:54 06/17/20 19:54 Abnormal Lab Findings: Abnormal Labs 06/17/20 06/17/20 06/17/20 19:54 19:54 20:48 RBC 4.22 L Neutrophils # 8.5 H Glucose 101 H Alkaline Phosphatase 134 H Urine Protein Trace H Assessment and Plan Assessment: * Seizure disorder, came with breakthrough seizure. 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 * Questionable history of alcoholism although patient's girlfriend denies significant alcoholism. Plan: * Continue Keppra 1500 mg twice a day. * We will now add Lamictal 25 mg twice a day. Patient's girlfriend Kelly was recommended to stop Lamictal if she notices any rash. * Patient should follow-up with his neurologist for further optimization of the dose of Lamictal. * Neurologically clear otherwise. * No need to repeat EEG.
[2020-06-18] MEDS ORDERED: levETIRAcetam 500 MG TAB PO ONE (12:45)
[2020-06-18] MEDS: lamoTRIgine 25 MG TAB PO SCH ×2 (13:30→22:42)
[2020-06-18] MEDS: DEXTROSE 5%-0.45% NACL 1,000 ML IV SCH (17:58)
--- NOTE | 2020-06-18 19:00 | CONS ---
CONSULTATION DATE OF SERVICE: 06/18/2020 REASON FOR CONSULTATION: Fever. HISTORY OF PRESENT ILLNESS: The patient is a 70-year-old male with a past medical history significant for seizure disorder. This patient follows with a neurologist locally. The patient was brought into the ER after apparently the patient had a seizure at home. The patient on presentation to the ER did have a fever of 101 degrees Fahrenheit with a subsequent fever of 102.2 degrees Fahrenheit. The patient was tachycardic. Initial workup in the ER showed that the patient had a normal white count with mild left shift. Patient did have normal kidney function. Liver enzymes were normal. CRP was only 20. Urine was negative. Reed as well as influenza PCR was negative. The patient did have an LP completed which showed normal glucose, protein and no white cells. The patient had multiple x-rays and those have been negative for any acute infiltrate. The patient has been started on IV acyclovir, which is currently infusing. Infectious Disease was consulted for further management of antibiotic therapy. Most of the information has been obtained from review of the chart, talking to the nursing staff. The patient is currently lethargic, possibly postictal, and is unable to provide any history. REVIEW OF SYSTEMS: Positive points have been mentioned in the HPI. Rest of the systems are negative. PAST MEDICAL HISTORY: Hypertension, [place], pneumonia, seizure disorder, history of ETOH abuse in the past. PAST SURGICAL HISTORY: No major surgery. SOCIAL HISTORY: Current everyday smoker. FAMILY HISTORY: Father with history of diabetes. Mother also with history of diabetes. ALLERGIES: NO KNOWN DRUG ALLERGIES. MEDICATIONS: The patient is currently on Tylenol, acyclovir, aspirin, Lipitor, Lovenox, Lamictal, Keppra, Ativan, Narcan, nicotine patch, Zofran, Protonix, vitamin B1. PHYSICAL EXAMINATION: Blood pressure 128/84 with a pulse of 80, temperature 97. He is 96% on room air. General description is an elderly male lying in bed in no distress. No tachypnea or accessory muscle of respiration use. HEENT EXAMINATION: No pallor or scleral icterus. Oral mucous membrane is dry. LUNGS: Unlabored breathing with decreased breath sounds in the bases. No wheeze. HEART: S1, S2. Regular rate and rhythm. ABDOMEN: Soft. No tenderness. No guarding or rigidity. EXTREMITIES: No edema of the feet. SKIN EXAMINATION: No rash or mass palpable. Neurologically the patient is lethargic. No neck rigidity. Neuro exam could not be completed. LABS: Hemoglobin is 13.1, white count 10.3, BUN of 9, creatinine 0.74. Electrolytes have been normal. Liver enzymes are normal. LP was negative. Reed PCR negative. Influenza PCR negative. Chest x-ray negative. Urine is negative. DIAGNOSTIC IMPRESSION AND PLAN: Patient admitted to hospital with seizure activity and did have a fever, questionably related to his seizure activity, as the patient currently does not have any obvious focus of infection. The patient's fever subsequently resolved. The patient did have an LP that was negative for any suspicion for a SUSTAINABILITY ANALYST infection. Urine is negative. Chest x-ray was negative. Abdomen was soft on clinical examination. No evidence of any cellulitis. PLAN: 1. We will monitor the patient closely off antibiotic therapy at this point. 2. Acyclovir may be continued while waiting for the HSV DNA by PCR to be completed. 3. Will follow his clinical condition and further adjust medication if needed. Thank you for this consultation. Will follow this patient along with you. MMODL / IJN: [id number] /
[2020-06-18] MEDS: levETIRAcetam 500 MG TAB PO SCH (22:42)
[2020-06-19] MEDS: SODIUM CHLORIDE 0.9% IVPB SCH ×4 (00:20→23:37)
[2020-06-19] MEDS: ACYCLOVIR SODIUM IVPB SCH ×4 (00:20→23:37)
[2020-06-19] MEDS: LORazepam 2 MG/ML INJ IV PRN ×2 (01:48→04:17)
[2020-06-19 03:18] LABS: Amphetamine Screen,Urine Not Detected (NotDetected); Barbiturate Screen,Urine Detected (NotDetected); Benzodiazepines Screen,Urine Detected (NotDetected); Cocaine Screen,Urine Not Detected (NotDetected); Methadone Screen, Urine Not Detected (NotDetected); Opiate Screen,Urine Not Detected (NotDetected); Oxycodone Screen, Urine Not Detected (NotDetected); Phencyclidine Screen,Urine Not Detected (NotDetected); Tricyclic Antidepressant,Urine Not Detected (NotDetected); Urn Cannabinoid Scrn Not Detected (NotDetected)
[2020-06-19] MEDS: levETIRAcetam 500 MG TAB PO SCH ×2 (09:00→20:46)
[2020-06-19 09:45] LABS: African American GFR (CKD) 111.6 (60.0-200.0); Non-African American GFR(CKD) 96.3 (60.0-200.0)
[2020-06-19] MEDS: ASPIRIN 81 MG PO SCH (10:31)
[2020-06-19] MEDS: ATORVASTATIN 20 MG TAB PO SCH (10:31)
[2020-06-19] MEDS: THIAMINE 100 MG TAB PO SCH ×3 (10:31→16:39)
[2020-06-19] MEDS: ENOXAPARIN 40 MG/0.4 ML SYRINGE SQ SCH (10:31)
[2020-06-19] MEDS: NICOTINE 21MG/24HR PATCH TRANSDERM SCH (10:31)
[2020-06-19] MEDS: PANTOPRAZOLE 40 MG TABLET PO SCH (10:31)
[2020-06-19] MEDS: MULTIVITAMINS, THERA 1 EACH TAB PO SCH (10:31)
[2020-06-19] MEDS: lamoTRIgine 25 MG TAB PO SCH ×2 (10:32→21:29)
--- NOTE | 2020-06-19 10:50 | P.DS ---
Providers Date of admission: 06/17/20 23:25 Attending physician: Michelle Dunn Consults: 06/17/20 23:18 Consult Physician Routine Consulting Provider: Gladys Leal Consult Reason/Comments: Seizures Do you want consulting provider notified?: Yes 06/17/20 23:20 Consult Physician Urgent Consulting Provider: Marlen Osuna Consult Reason/Comments: fever Do you want consulting provider notified?: Yes [facility]: 70-year-old the male was brought in by his the girlfriend as she witnessed the seizure patient is a poor historian and unable to provide much of history to me. She appears to be having alcohol withdrawals at this time patient's is a he drinks alternate days but they've it appears like patient does drink almost everyday patient is alert oriented 2-3. Patient is able to provide history but externally poor historian. Patient denied any focal weakness. Patient was evaluated by neurology patient is taking 1500 mg twice a day. Probably Wednesday initiated neurology is not recommending an EEG at this time and did have high- grade fever because of which LP was done LP was negative although there is no source of sepsis at this time. Acyclovir, ceftriaxone and vancomycin will be discontinued and infectious disease will evaluate the patient. Is probably related to his seizure itself. 06/19/2020 Patient doesn't have any more episodes of fevers. Patient was evaluated by neurology and Lamictal was added patient is on 25 mg twice a day. Lamictal along with the Keppra 1500 twice a day. Patient will be evaluated by physical therapy and occupational therapy depending on the recommendation patient will be the discharge home with home care or subacute rehabilitation. HSV PCR from the CSF is pending. Patient's the pro-calcitonin 0.07. I do not believe patient has either encephalitis or meningitis acyclovir will be discontinued. We will discuss with the infectious disease as well. PHYSICAL EXAMINATION: GENERAL: The patient is alert and oriented x3, not in any acute distress. Well developed, well nourished. No tremors today HEENT: Pupils are round and equally reacting to light. EOMI. No scleral icterus. No conjunctival pallor. Normocephalic, atraumatic. No pharyngeal erythema. No thyromegaly. CARDIOVASCULAR: S1 and S2 present. No murmurs, rubs, or gallops. PULMONARY: Chest is clear to auscultation, no wheezing or crackles. ABDOMEN: Soft, nontender, nondistended, normoactive bowel sounds. No palpable organomegaly. MUSCULOSKELETAL: No joint swelling or deformity. EXTREMITIES: No cyanosis, clubbing, or pedal edema. NEUROLOGICAL: She has significant generalized weakness no focal weakness. SKIN: No rashes. Assessment and Plan Plan: -Breakthrough seizures: Patient to will be discharged today and above-mentioned medication regimen -Fever problems with seizures no evidence of sepsis at this time LP is not consistent with meningitis or encephalitis. 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 Received Ativan only once today -Hyperlipidemia -Generalized weakness: Lead subacute rehabitation Patient Condition at Discharge: Serious Plan - Discharge Summary Discharge Rx Participant: No New Discharge Prescriptions: New lamoTRIgine [LaMICtal] 25 mg PO BID #60 tab Multivitamins, Thera [Multivitamin (formulary)] 1 each PO DAILY #30 tab Continue Aspirin 81 mg PO DAILY 30 Days #30 chewable levETIRAcetam [Keppra] 1,000 mg PO Q12HR 30 Days #60 tab levETIRAcetam [Keppra] 500 mg PO BID 30 Days #60 tab Atorvastatin Calcium [Lipitor] 20 mg PO DAILY 30 Days #30 tab Thiamine [Vitamin B-1] 100 mg PO DAILY 30 Days #30 tablet Discharge Medication List Aspirin 81 mg PO DAILY 30 Days #30 chewable 04/17/20 [Rx] Atorvastatin Calcium [Lipitor] 20 mg PO DAILY 30 Days #30 tab 04/17/20 [Rx] Thiamine [Vitamin B-1] 100 mg PO DAILY 30 Days #30 tablet 04/17/20 [Rx] levETIRAcetam [Keppra] 1,000 mg PO Q12HR 30 Days #60 tab 04/17/20 [Rx] levETIRAcetam [Keppra] 500 mg PO BID 30 Days #60 tab 04/17/20 [Rx] Multivitamins, Thera [Multivitamin (formulary)] 1 each PO DAILY #30 tab 06/19/20 [Rx] lamoTRIgine [LaMICtal] 25 mg PO BID #60 tab 06/19/20 [Rx] Follow up Appointment(s)/Referral(s): Thony Singer MD [Primary Care Provider] - 3 Days Austen Longoria MD [STAFF PHYSICIAN] - 1 Week
--- NOTE | 2020-06-19 11:51 | EEG ---
ELECTROENCEPHALOGRAM REPORT DATE OF SERVICE: 06/18/2020 PREAMBLE: This is a 70-year-old male with history of seizure disorder. EEG FINDINGS: This is a 21 channel routine EEG recording in patient utilizing 10/20 international system with referential and bipolar montages. Background consists of moderately well- developed and regulated, very low voltage with fast frequency beta activity seen in bihemispheric region. A lot of myogenic artifact was seen intermittently, particularly involving the right temporal region. Where myogenic activity was not seen, there was some focal slowing in low-voltage delta in the right temporal region. No focal or generalized epileptiform activity was seen. Photic driving response was not seen. Different stages of sleep were not seen. IMPRESSION: This is an abnormal EEG due to presence of: 1. Focal slowing involving the right temporal region suggestive of focal cortical neuronal dysfunction. 2. Excessive low-voltage fast frequency beta activity suggestive of medication effect. 3. No epileptiform activity was seen. MMODL / IJN: [id number] / SUE
[2020-06-19] MEDS: DEXTROSE 5%-0.45% NACL 1,000 ML IV SCH (16:39)
--- NOTE | 2020-06-19 17:41 | P.PN ---
Subjective Progress Note Date: 06/19/20 Patient was seen for a follow-up. Patient complains of headache which he feels is from Keppra. Patient somewhat unsteady, requires assist to go to the bathroom. Patient denies alcoholism. Objective - Vital Signs Vital signs: Vital Signs Temp 98.0 F 06/19/20 07:31 Pulse 75 06/19/20 07:31 Resp 20 06/19/20 07:31 BP 147/91 06/19/20 07:31 Pulse Ox 96 06/19/20 07:31 Intake & Output 06/18/20 06/19/20 06/19/20 18:59 06:59 18:59 Intake Total 900 Output Total 250 Balance 900 -250 Weight 83.915 kg Intake: Oral 900 Output: Urine 250 Other: Voiding Method Diaper Diaper # Voids 7 1 - Exam Patient's mentation has improved. Muscle strength is normal. Speech and language functions are normal. Gait deferred. - Labs CBC & Chem 7: 06/17/20 19:54 06/19/20 06:29 Labs: Abnormal Lab Results - Last 24 Hours (Table) 06/19/20 Range/Units 00:10 Ur Barbiturates Screen Detected H (NotDetected) U Benzodiazepines Scrn Detected H (NotDetected) Microbiology - Last 24 Hours (Table) 06/18/20 00:09 CSF Gram Stain - Preliminary Cerebral Spinal Fluid CSF Culture - Preliminary 06/17/20 19:54 Blood Culture - Preliminary Blood No Growth after 24 hours 06/17/20 19:54 Blood Culture - Preliminary Blood No Growth after 24 hours Assessment and Plan Assessment: * Seizure disorder, came with breakthrough seizure. 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 * Questionable history of alcoholism although patient's girlfriend denies significant alcoholism. Plan: * Continue Keppra 1500 mg twice a day. Keppra level 30.4 (3-60) * We will now add Lamictal 25 mg twice a day. Patient's girlfriend Kelly was recommended to stop Lamictal if she notices any rash. * Patient should follow-up with his neurologist for further optimization of the dose of Lamictal. * EEG revealed focal slowing involving the right temporal region suggestive of focal cortical neuronal dysfunction. Excessive low voltage fast frequency beta suggestive of medication effect. No epileptiform activity was seen. * Neurologically clear otherwise.
[2020-06-19] MEDS ORDERED: NICOTINE 21MG/24HR PATCH TRANSDERM STA (20:40)
--- NOTE | 2020-06-19 23:02 | PN ---
PROGRESS NOTE DATE OF SERVICE: 06/19/2020 REASON FOR FOLLOWUP: Fever. INTERVAL HISTORY: The patient is currently afebrile. The patient is more awake and alert. He is breathing comfortably. Denies having any headache. No chest pain, shortness of breath or cough. No abdominal pain or diarrhea. PHYSICAL EXAMINATION: Blood pressure was 138/76, pulse of 76, temperature 99.1. He is 96% on room air. General description is an elderly male lying in bed in no distress. RESPIRATORY SYSTEM: Unlabored breathing. Clear to auscultation anteriorly. HEART: S1, S2. Regular rate and rhythm. ABDOMEN: Soft. No tenderness. EXTREMITIES: No edema of the feet. LABS: Creatinine 0.7. CRP was 20. DIAGNOSTIC IMPRESSION AND PLAN: Patient with a fever in this patient admitted to hospital with seizure activity, possible postictal. Clinically no obvious focus of infection. The patient's examination was negative. Chest x-ray was negative. Urine is negative. The patient's fever resolved without any antibiotic therapy. He is currently on empiric acyclovir. HSV DNA by PCR is pending, though clinically doubt encephalitis. MMODL / IJN: [id number] /
[2020-06-20 07:41] VITALS: PULSE 66; RESP 18
[2020-06-20] MEDS: NICOTINE 21MG/24HR PATCH TRANSDERM SCH (09:18)
[2020-06-20] MEDS: THIAMINE 100 MG TAB PO SCH ×2 (09:19→11:32)
[2020-06-20] MEDS: MULTIVITAMINS, THERA 1 EACH TAB PO SCH (09:19)
[2020-06-20] MEDS: ATORVASTATIN 20 MG TAB PO SCH (09:19)
[2020-06-20] MEDS: ENOXAPARIN 40 MG/0.4 ML SYRINGE SQ SCH (09:19)
[2020-06-20] MEDS: ASPIRIN 81 MG PO SCH (09:19)
[2020-06-20] MEDS: SODIUM CHLORIDE 0.9% IVPB SCH (09:19)
[2020-06-20] MEDS: PANTOPRAZOLE 40 MG TABLET PO SCH (09:19)
[2020-06-20] MEDS: ACYCLOVIR SODIUM IVPB SCH (09:19)
[2020-06-20] MEDS: levETIRAcetam 500 MG TAB PO SCH (09:20)
[2020-06-20] MEDS: lamoTRIgine 25 MG TAB PO SCH (09:20)
[2020-06-20 11:38] LABS: African American GFR (CKD) 105.6 (60.0-200.0); Non-African American GFR(CKD) 91.1 (60.0-200.0)
--- NOTE | 2020-06-20 12:26 | P.DS ---
Providers Date of admission: 06/17/20 23:25 Expected date of discharge: 06/20/20 Attending physician: Michelle Dunn Consults: 06/17/20 23:18 Consult Physician Routine Consulting Provider: Gladys Leal Consult Reason/Comments: Seizures Do you want consulting provider notified?: Yes 06/17/20 23:20 Consult Physician Urgent Consulting Provider: Marlen Osuna Consult Reason/Comments: fever Do you want consulting provider notified?: Yes Primary care physician: [facility] Course: Final Diagnosis -Breakthrough seizures -Fever probably secondary to seizures no evidence of sepsis at this time LP is not consistent with meningitis or encephalitis -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 Patient will follow-up with Dr. Singer upon discharge. Patient instructed to follow up with neurology outpatient and to refrain from any alcohol use. Total time taken is 35 minutes. History of present illness 70-year-old the male was brought in by his the girlfriend as she witnessed the seizure patient is a poor historian and unable to provide much of history to me. She appears to be having alcohol withdrawals at this time patient's is a he drinks alternate days but they've it appears like patient does drink almost everyday patient is alert oriented 2-3. Patient is able to provide history but externally poor historian. Patient denied any focal weakness. Patient was evaluated by neurology patient is taking 1500 mg twice a day. Probably Wednesday initiated neurology is not recommending an EEG at this time and did have high- grade fever because of which LP was done LP was negative although there is no source of sepsis at this time. Acyclovir, ceftriaxone and vancomycin will be discontinued and infectious disease will evaluate the patient. Is probably related to his seizure itself. 06/19/2020 Patient doesn't have any more episodes of fevers. Patient was evaluated by neurology and Lamictal was added patient is on 25 mg twice a day. Lamictal along with the Keppra 1500 twice a day. Patient will be evaluated by physical therapy and occupational therapy depending on the recommendation patient will be the discharge home with home care or subacute rehabilitation. HSV PCR from the CSF is pending. Patient's the pro-calcitonin 0.07. I do not believe patient has either encephalitis or meningitis acyclovir will be discontinued. We will discuss with the infectious disease as well. 06/20/2020 Was seen and evaluated in follow-up with no acute overnight issues. No seizure- like activity noted. Patient is currently sitting up in the chair and awaiting for authorization for rehab for continued PT/OT therapy. HSV PCR pending and will follow for results. Infectious disease also following the patient will not require antibiotics upon discharge. Patient to follow up with neurology outpatient. Currently no reports of chest pain, shortness of breath, or palpitations. Patient is afebrile. No reports of nausea or vomiting and patient is tolerating diet. Patient and family will further discuss palliative care in the outpatient setting. Guarded prognosis. PHYSICAL EXAMINATION: GENERAL: The patient is alert and oriented x3, not in any acute distress. Well developed, well nourished. No tremors today HEENT: Pupils are round and equally reacting to light. EOMI. No scleral icterus. No conjunctival pallor. Normocephalic, atraumatic. No pharyngeal erythema. No thyromegaly. CARDIOVASCULAR: S1 and S2 present. No murmurs, rubs, or gallops. PULMONARY: Chest is clear to auscultation, no wheezing or crackles. ABDOMEN: Soft, nontender, nondistended, normoactive bowel sounds. No palpable organomegaly. MUSCULOSKELETAL: No joint swelling or deformity. EXTREMITIES: No cyanosis, clubbing, or pedal edema. NEUROLOGICAL: She has significant generalized weakness no focal weakness. SKIN: No rashes. Currently no reports of chest pain, shortness of breath, or palpitations. Patient is afebrile. No reports of nausea or vomiting and patient is tolerating diet. Patient and family will further discuss palliative care in the outpatient setting. Guarded prognosis. Please refer to medication reconciliation sheet for a list of medications. Patient Condition at Discharge: Stable Plan - Discharge Summary Discharge Rx Participant: No New Discharge Prescriptions: New lamoTRIgine [LaMICtal] 25 mg PO BID #60 tab Multivitamins, Thera [Multivitamin (formulary)] 1 each PO DAILY #30 tab Nicotine 21Mg/24Hr Patch [Habitrol] 1 patch TRANSDERM DAILY patch levETIRAcetam [Keppra] 1,500 mg PO Q12HR tab Pantoprazole [Protonix] 40 mg PO AC-BRKFST tablet. Acetaminophen Tab [Tylenol] 650 mg PO Q6HR PRN tab PRN Reason: Mild Pain Or Fever > 100.5 Continue Aspirin 81 mg PO DAILY 30 Days #30 chewable Atorvastatin Calcium [Lipitor] 20 mg PO DAILY 30 Days #30 tab Changed Thiamine [Vitamin B-1] 100 mg PO BID 30 Days #30 tablet Discontinued levETIRAcetam [Keppra] 1,000 mg PO Q12HR 30 Days #60 tab levETIRAcetam [Keppra] 500 mg PO BID 30 Days #60 tab Discharge Medication List Aspirin 81 mg PO DAILY 30 Days #30 chewable 04/17/20 [Rx] Atorvastatin Calcium [Lipitor] 20 mg PO DAILY 30 Days #30 tab 04/17/20 [Rx] Multivitamins, Thera [Multivitamin (formulary)] 1 each PO DAILY #30 tab 06/19/20 [Rx] lamoTRIgine [LaMICtal] 25 mg PO BID #60 tab 06/19/20 [Rx] Acetaminophen Tab [Tylenol] 650 mg PO Q6HR PRN tab 06/20/20 [Rx] Nicotine 21Mg/24Hr Patch [Habitrol] 1 patch TRANSDERM DAILY patch 06/20/20 [Rx] Pantoprazole [Protonix] 40 mg PO AC-BRKFST tablet. 06/20/20 [Rx] Thiamine [Vitamin B-1] 100 mg PO BID 30 Days #30 tablet 06/20/20 [Rx] levETIRAcetam [Keppra] 1,500 mg PO Q12HR tab 06/20/20 [Rx] Follow up Appointment(s)/Referral(s): Thony Singer MD [Primary Care Provider] - 06/24/20 1:10 pm Austen Longoria MD [STAFF PHYSICIAN] - 1 Week (call office after you get [facility] to set up appointment ) Activity/Diet/Wound Care/Special Instructions: Patient is going to [facility] Activity as tolerated Continue current diet Follow-up with neurology outpatient Primary care provider upon discharge Avoid alcohol intake Discharge Disposition: TRANSFER TO SNF/ECF
[2020-06-20 14:22] VITALS: BP 134/83; TEMP 98.3
[2020-06-21 11:53] LABS: VDRL, Qualitative CSF Nonreactive (Nonreactive)
== END 2020-06-20 14:42 | DRG 101 ==
LOC: EC 18:32 → 5NMEDONC 23:25 → 1SOBS 06-18 08:30 → 4SSUR 06-18 16:57
PROVIDERS: ADMIT Internal Medicine; ATTEND Internal Medicine
PROC: 009U3ZX Drainage of Spinal Canal, Percutaneous Approach, Diagnostic (ICD-10-PCS; principal; 2020-06-17)
DX: G40.109 Localization-related (focal) (partial) symptomatic epilepsy and epileptic syndromes with simple partial seizures, not intractable, without status epilepticus (principal); F10.239 Alcohol dependence with withdrawal, unspecified; G31.2 Degeneration of nervous system due to alcohol; E78.5 Hyperlipidemia, unspecified; F17.210 Nicotine dependence, cigarettes, uncomplicated; I10 Essential (primary) hypertension; I25.2 Old myocardial infarction; Z79.82 Long term (current) use of aspirin; Z79.899 Other long term (current) drug therapy; Z81.1 Family history of alcohol abuse and dependence; Z83.3 Family history of diabetes mellitus; Z86.73 Personal history of transient ischemic attack (TIA), and cerebral infarction without residual deficits; Z20.822 Contact with and (suspected) exposure to COVID-19; R50.9 Fever, unspecified; R53.1 Weakness; Z87.01 Personal history of pneumonia (recurrent)
CPT/HCPCS: 36415; 62270; 70450; 71045; 80053; 80177; 80306; 80320; 81003; 82565; 82945; 83605; 83615; 84145; 84157; 85025; 85610; 85730; 86140; 86592; 87040; 87070; 87205; 87502; 87529; 87635; 89050; 95819; 96361; 96365; 96366; 96367; 96372; 96375; 96376; 99285

== ENCOUNTER 2020-09-05 16:15 | Inpatient (IN) | payer MEDICARE ==
[2020-09-05] MEDS ORDERED: SODIUM CHLORIDE 0.9% 500 ML 500 ML IV STA (16:35)
[2020-09-05] MEDS ORDERED: MORPHINE SULFATE 4 MG/ML SYRINGE IV STA (16:35)
[2020-09-05] MEDS ORDERED: ONDANSETRON 4 MG/2 ML VIAL IVP STA (16:57)
[2020-09-05 17:15] LABS: INR 1.1 (<1.2); Partial Thromboplastin Time 22.9 sec (22.0-30.0); Prothrombin Time 11.4 sec (9.0-12.0)
[2020-09-05 17:16] LABS: ALT 89 U/L (4-49); AST 210 U/L (17-59); African American GFR (CKD) >90 (>60 ml/min/1.73 sqM); Albumin 3.7 g/dL (3.5-5.0); Alkaline Phosphatase 1425 U/L (38-126); Amylase 47 U/L (30-110); Anion Gap 14 mmol/L; Blood Urea Nitrogen 9 mg/dL (9-20); Calcium 8.7 mg/dL (8.4-10.2); Carbon Dioxide 18 mmol/L (22-30); Chloride 99 mmol/L (98-107); Glucose 111 mg/dL (74-99); Lipase 57 U/L (23-300); Non-African American GFR(CKD) >90 (>60 ml/min/1.73 sqM); Potassium 4.1 mmol/L (3.5-5.1); Sodium 131 mmol/L (137-145); Total Bilirubin 1.7 mg/dL (0.2-1.3)
[2020-09-05] MEDS ORDERED: SODIUM CHLORIDE 0.9% 1,000 ML IV ONE (17:22)
[2020-09-05 17:30] LABS: Anisocytosis Slight; Basophils % (A) 0 %; Eosinophils % (A) 0 %; HGB 13.1 gm/dL (13.0-17.5); Hypochromasia Slight; Lymphocytes # (A) 0.5 k/uL (1.0-4.8); Lymphocytes % (A) 3 %; MCH 29.1 pg (25.0-35.0); MCHC 31.3 g/dL (31.0-37.0); MCV 92.8 fL (80.0-100.0); Monocytes # (A) 0.7 k/uL (0-1.0); Monocytes % (A) 4 %; Neutrophils # (A) 16.8 k/uL (1.3-7.7); Neutrophils % (A) 93 %; Platelet Count 416 k/uL (150-450); RBC 4.52 m/uL (4.30-5.90); RDW 16.2 % (11.5-15.5)
[2020-09-05] MEDS ORDERED: cefTRIAXone IN SWFI 1,000 MG/10 ML SYRINGE IVP STA (17:48)
--- NOTE | 2020-09-05 17:50 | ED ---
General Adult HPI - General Chief complaint: Abdominal Pain Stated complaint: seizures Time Seen by Provider: 09/05/20 16:19 Source: patient, EMS, RN notes reviewed, old records reviewed Mode of arrival: EMS Limitations: no limitations - History of Present Illness Initial comments: 70-year-old male presenting for evaluation of abdominal pain, and seizure. Patient does have seizure history, he has recurrent seizures, last seizure was approximately one month ago. He is currently on Keppra and states he has been compliant with his seizure medication. He states he had an aura and then seized while at home. No injury. He states that prior to this he had developed a generalized abdominal pain. He states that has been there since this morning. Approximately 10 hours. He denies fever here denies vomiting. He denies constipation or diarrhea. He states the pain is throughout his entire abdomen. - Related Data Previous Rx's Medication Instructions Recorded Aspirin 81 mg PO DAILY 30 Days #30 chewable 04/17/20 Atorvastatin Calcium [Lipitor] 20 mg PO DAILY 30 Days #30 tab 04/17/20 Multivitamins, Thera [Multivitamin 1 each PO DAILY #30 tab 06/19/20 (formulary)] lamoTRIgine [LaMICtal] 25 mg PO BID #60 tab 06/19/20 Acetaminophen Tab [Tylenol] 650 mg PO Q6HR PRN tab 06/20/20 Nicotine 21Mg/24Hr Patch [Habitrol] 1 patch TRANSDERM DAILY patch 06/20/20 Pantoprazole [Protonix] 40 mg PO AC-BRKFST tablet. 06/20/20 Thiamine [Vitamin B-1] 100 mg PO BID 30 Days #30 tablet 06/20/20 levETIRAcetam [Keppra] 1,500 mg PO Q12HR tab 06/20/20 Allergies Allergy/AdvReac Type Severity Reaction Status Date / Time No Known Allergies Allergy Verified 06/17/20 22:42 Review of Systems ROS Statement: Those systems with pertinent positive or pertinent negative responses have been documented in the HPI. ROS Other: All systems not noted in ROS Statement are negative. Past Medical History Past Medical History: Myocardial Infarction (MD), Pneumonia, Seizure Disorder Additional Past Medical History / Comment(s): ETOH abuse with past withdrawal DTs and seizures, last seizure 01/08/20, pt states he is a fall hazard but has not fallen in past 6 months, pt states he had a "slight" MD approximately 2-3 years ago and was seen at [facility] and shipped to [facility] but states had no cardiac intervention, past R foot fracture which did not heal, past perianal abscess, Last Myocardial Infarction Date:: 2017 History of Any Multi-Drug Resistant Organisms: None Reported Past Surgical History: No Surgical Hx Reported Additional Past Surgical History / Comment(s): Pt states he has never had surgery Past Anesthesia/Blood Transfusion Reactions: No Reported Reaction Additional Past Anesthesia/Blood Transfusion Reaction / Comment(s): "never received any blood transfusions" Past Psychological History: No Psychological Hx Reported Smoking Status: Current every day smoker Past Alcohol Use History: Occasional Past Drug Use History: None Reported - Past Family History Father History Unknown: Yes Family Medical History: Diabetes Mellitus Additional Family Medical History / Comment(s): Father was an alcoholic. Mother History Unknown: Yes Family Medical History: Diabetes Mellitus Additional Family Medical History / Comment(s): Mother is . General Exam Limitations: no limitations General appearance: alert, in no apparent distress Head exam: Present: atraumatic, normocephalic Eye exam: Present: normal appearance, PERRL ENT exam: Present: mucous membranes dry Neck exam: Present: normal inspection. Absent: tenderness, meningismus Respiratory exam: Present: wheezes. Absent: respiratory distress Cardiovascular Exam: Present: normal rhythm, tachycardia GI/Abdominal exam: Present: soft, tenderness (Generalized tenderness to palpation). Absent: distended, guarding, rebound Extremities exam: Present: normal inspection, normal capillary refill. Absent: pedal edema Neurological exam: Present: alert, oriented X3. Absent: motor sensory deficit Psychiatric exam: Present: normal affect, normal mood Skin exam: Present: warm, dry, intact. Absent: cyanosis, diaphoretic Course Vital Signs 09/05/20 09/05/20 09/05/20 16:20 16:35 17:00 Temperature 98.6 F Pulse Rate 120 H 135 H Respiratory 18 18 Rate Blood Pressure 138/99 149/108 O2 Sat by Pulse 98 98 Oximetry 09/05/20 18:00 Temperature Pulse Rate 123 H Respiratory 18 Rate Blood Pressure 139/100 O2 Sat by Pulse 100 Oximetry EKG Findings - EKG Comments: EKG Findings:: EKG: Sinus tachycardia with PVC, low voltage, rate of 121, IL interval 138, QRS duration 90, QTC [address] segment elevation. Question ST segment depression laterally. Medical Decision Making - Medical Decision Making 70-year-old male with 2 complaints, one is seizure, he has been evaluated and has a nonfocal exam, head CT negative. Second complaint of abdominal pain. Patient is generally tender. He is rigid. Workup is initiated including CT of the abdomen and upright chest. Upright chest shows intraperitoneal free air. CT confirms intraperitoneal free air with multiple liver lesions. He had been started initially on ceftriaxone awaiting further workup. He is given Zosyn in addition. I discussed case with Dr. Schwartz covering for general surgery who will take the patient for urgent exploratory laparotomy. Laboratory studies reveal leukocytosis, elevated lactic acid, elevated liver enzymes and bilirubin as well as alkaline phosphatase. 2 L of IV fluid is given additional antibiotics and pain control. He started on maintenance fluids. He has not eaten since yesterday. - Lab Data Result diagrams: 09/05/20 16:54 09/05/20 16:54 Lab Results 09/05/20 09/05/20 09/05/20 Range/Units 16:54 16:54 16:54 WBC 18.0 H (3.8-10.6) k/uL RBC 4.52 (4.30-5.90) m/uL Hgb 13.1 (13.0-17.5) gm/dL Hct 42.0 (39.0-53.0) % MCV 92.8 (80.0-100.0) fL MCH 29.1 (25.0-35.0) pg MCHC 31.3 (31.0-37.0) g/dL RDW 16.2 H (11.5-15.5) % Plt Count 416 (150-450) k/uL MPV 8.0 Neutrophils % 93 % Lymphocytes % 3 % Monocytes % 4 % Eosinophils % 0 % Basophils % 0 % Neutrophils # 16.8 H (1.3-7.7) k/uL Lymphocytes # 0.5 L (1.0-4.8) k/uL Monocytes # 0.7 (0-1.0) k/uL Eosinophils # 0.0 (0-0.7) k/uL Basophils # 0.0 (0-0.2) k/uL Hypochromasia Slight Anisocytosis Slight PT 11.4 (9.0-12.0) sec INR 1.1 (<1.2) APTT 22.9 (22.0-30.0) sec Sodium 131 L (137-145) mmol/L Potassium 4.1 (3.5-5.1) mmol/L Chloride 99 (98-107) mmol/L Carbon Dioxide 18 L (22-30) mmol/L Anion Gap 14 mmol/L BUN 9 (9-20) mg/dL Creatinine 0.63 L (0.66-1.25) mg/dL Est GFR (CKD-EPI)AfAm >90 (>60 ml/min/1.73 sqM) Est GFR (CKD-EPI)NonAf >90 (>60 ml/min/1.73 sqM) Glucose 111 H (74-99) mg/dL Plasma Lactic Acid Tommy (0.7-2.0) mmol/L Calcium 8.7 (8.4-10.2) mg/dL Total Bilirubin 1.7 H (0.2-1.3) mg/dL AST 210 H (17-59) U/L ALT 89 H (4-49) U/L Alkaline Phosphatase 1425 H (38-126) U/L Troponin I (0.000-0.034) ng/mL Total Protein 7.0 (6.3-8.2) g/dL Albumin 3.7 (3.5-5.0) g/dL Amylase 47 (30-110) U/L Lipase 57 (23-300) U/L 09/05/20 09/05/20 Range/Units 16:54 16:54 WBC (3.8-10.6) k/uL RBC (4.30-5.90) m/uL Hgb (13.0-17.5) gm/dL Hct (39.0-53.0) % MCV (80.0-100.0) fL MCH (25.0-35.0) pg MCHC (31.0-37.0) g/dL RDW (11.5-15.5) % Plt Count (150-450) k/uL MPV Neutrophils % % Lymphocytes % % Monocytes % % Eosinophils % % Basophils % % Neutrophils # (1.3-7.7) k/uL Lymphocytes # (1.0-4.8) k/uL Monocytes # (0-1.0) k/uL Eosinophils # (0-0.7) k/uL Basophils # (0-0.2) k/uL Hypochromasia Anisocytosis PT (9.0-12.0) sec INR (<1.2) APTT (22.0-30.0) sec Sodium (137-145) mmol/L Potassium (3.5-5.1) mmol/L Chloride (98-107) mmol/L Carbon Dioxide (22-30) mmol/L Anion Gap mmol/L BUN (9-20) mg/dL Creatinine (0.66-1.25) mg/dL Est GFR (CKD-EPI)AfAm (>60 ml/min/1.73 sqM) Est GFR (CKD-EPI)NonAf (>60 ml/min/1.73 sqM) Glucose (74-99) mg/dL Plasma Lactic Acid Tommy 4.4 H* (0.7-2.0) mmol/L Calcium (8.4-10.2) mg/dL Total Bilirubin (0.2-1.3) mg/dL AST (17-59) U/L ALT (4-49) U/L Alkaline Phosphatase (38-126) U/L Troponin I <0.012 (0.000-0.034) ng/mL Total Protein (6.3-8.2) g/dL Albumin (3.5-5.0) g/dL Amylase (30-110) U/L Lipase (23-300) U/L Critical Care Time Critical Care Time: Yes Total Critical Care Time: 35 Disposition Clinical Impression: Recurrent seizures, Free intraperitoneal air, Lactic acidosis, Liver lesion Disposition: ADMITTED IP TO THIS [facility] Condition: Serious Is patient prescribed a controlled substance at d/c from ED?: No Referrals: Thony Singer MD [Primary Care Provider] - 1-2 days Decision to Admit Reason: Admit from EC Decision Date: 09/05/20 Decision Time: 18:43
[2020-09-05] MEDS ORDERED: cefTRIAXone IN SWFI 1,000 MG/10 ML SYRINGE IVP ONE (18:00)
--- NOTE | 2020-09-05 18:05 | CT ---
EXAMINATION: CT brain wo con DATE AND TIME: 09/05/2020 5:51 PM CLINICAL INDICATION: PHH; SEIZURE TECHNIQUE: Standard departmental protocol DLP: 1078.2 mGy-cm COMPARISON: CT 06/17/2020 FINDINGS: The calvarium is intact. There is no intracranial hemorrhage. There is no intracranial mass or mass effect. No definite new intra-axial or extra-axial attenuation defect. The previously seen right parietal low attenuation defect is redemonstrated, consistent with remote right parietal infarction.. The paranasal sinuses examination is positive for complete opacification of the right maxillary sinus , seen on prior studies and consistent with chronic right maxillary sinus opacification, without mass effect or volume loss of the right maxillary sinus. Remainder of the paranasal sinuses, middle ear cavities, and mastoid sinus air cells are clear. The orbits are unremarkable. IMPRESSION: No acute CT process.
--- NOTE | 2020-09-05 18:14 | XR ---
EXAMINATION: XR chest 2V DATE AND TIME: 09/05/2020 6:03 PM CLINICAL INDICATION: PHH; STEVE TECHNIQUE: Departmental protocol COMPARISON: AP upright portable 06/17/2020 FINDINGS: There is a large volume of pneumoperitoneum underneath the right hemidiaphragm. No pneumothorax or pleural effusion. There are a few scattered ill-defined added pleural parenchymal opacities bilaterally, greater on the right. Redemonstration of old bilateral remodeled rib and left midclavicular fractures. Cardiomediastinal silhouette unremarkable. No definite acute skeletal findings. IMPRESSION: MARKED PNEUMOPERITONEUM. Results shared with the ordering physician.
[2020-09-05] MEDS ORDERED: PIPERACILLIN-TAZOBACTAM 3.375 GM in SODIUM CHLORIDE 0.9% 100 ML IVPB STA (18:18)
--- NOTE | 2020-09-05 18:24 | CT ---
EXAMINATION TYPE: CT abdomen pelvis w con DATE OF EXAM: 09/05/2020 COMPARISON: None HISTORY: abdominal pain CT DLP: 932.8 mGycm Automated exposure control for dose reduction was used. TECHNIQUE: Helical acquisition of images was performed from the lung bases through the pelvis. CONTRAST: Performed without Oral Contrast and with IV Contrast, patient injected with 100 mL of Isovu e 300. FINDINGS: LUNG BASES: No acute process evident. Coronary calcifications appreciated. LIVER/GB: The liver is diffusely enlarged and riddled with innumerable spherical low-attenuation lesi ons suggesting metastatic neoplasm. PERITONEAL CAVITY: There is marked pneumoperitoneum, with gas There is a [id number] volume of p eritoneal fluid within the abdomen and pelvis. PANCREAS: No significant abnormality is seen. No ductal dilation. SPLEEN: No significant abnormality is seen. No splenomegaly. ADRENALS: No significant abnormality is seen. KIDNEYS: No significant abnormality is seen. RETROPERITONEAL ADENOPATHY: There is aortocaval adenopathy just caudal to the level the renal veins and at the level of the aortic bifurcation, with a necrotic enlarged lymph node in the left periaorti c position just above the level of the aortic bifurcation. REPRODUCTIVE ORGANS: No significant abnormality is seen URINARY BLADDER: There is mild urinary bladder distention with the dome of the bladder shifted just right of midline, etiology unclear. PELVIC ADENOPATHY: No inguinal, external iliac, or internal iliac adenopathy. Few scattered bilatera l common iliac subcentimeter lymph nodes are noted. OSSEOUS STRUCTURES: No significant abnormality is seen. BOWEL: No significant abnormality is seen. OTHER: No acute vascular findings. IMPRESSION: 1. MARKED PNEUMOPERITONEUM, WITH MILD/MODERATE PERITONEAL FLUID THROUGHOUT THE ABDOMEN AND PELVIS. 2. ENLARGED LIVER WITH INNUMERABLE LESIONS Results discussed with ordering physician to help expedite care.
[2020-09-05] MEDS ORDERED: HYDROmorphone 1 MG/ML 1 ML SYRINGE IVP STA (18:28)
[2020-09-05] MEDS ORDERED: SODIUM CHLORIDE 0.9% 500 ML 500 ML IV ONE (18:29)
[2020-09-05] MEDS ORDERED: NALOXONE 0.4 MG/ML 1 ML VIAL IV PRN (18:37)
[2020-09-05] MEDS ORDERED: metroNIDAZOLE-NS PMX 500 MG in SALINE 1 100ML.BAG IVPB STA (18:39)
[2020-09-05] MEDS: SODIUM CHLORIDE 0.9% 1,000 ML IV SCH (18:41)
[2020-09-05] MEDS ORDERED: LORazepam 2 MG/ML INJ IV STA (18:55)
[2020-09-05] MEDS ORDERED: ROCURONIUM 10 MG/ML (5 ML VIAL) IV ONE (19:44)
[2020-09-05] MEDS ORDERED: LIDOCAINE 1% INJ 10MG/ML (20 ML MDV) ONE (19:44)
[2020-09-05] MEDS ORDERED: MIDAZOLAM 2 MG/2 ML VIAL ONE (19:44)
[2020-09-05] MEDS ORDERED: IV FLUID CONTINUATION 1,000 ML IV ONE (19:44)
[2020-09-05] MEDS ORDERED: SUCCINYLCHOLINE CHLORIDE 100 MG/5 ML SYR IV ONE (19:44)
[2020-09-05] MEDS ORDERED: PROPOFOL 10 MG/ML 20 ML VIAL IV ONE (19:44)
[2020-09-05] MEDS ORDERED: fentaNYL (PF) 50 MCG/ML 2 ML AMP ONE (19:44)
--- NOTE | 2020-09-05 19:46 | P.GSHP ---
History of Present Illness H&P Date: 09/05/20 Chief Complaint: abdominal pain 70-year-old male presents to the hospital with 2 complaints. Patient has a history of seizures was hospitalized in May for this. He thought he had a seizure today. Additionally the patient began experiencing upper abdominal pain earlier this morning which has gradually progressed in severity and is now quite severe. Patient describes pain as 10 out of 10. No history of similar events. No history of known ulcers. CAT scan was obtained after x-rays showed pneumoperitoneum. CAT scan showed innumerable liver lesions consistent with metastatic disease. No history of known malignancy. No obvious site of malignancy seen on the CAT scan other than the suspected liver metastasis. Patient has been tachycardic. Lactic acid is elevated. White blood cell count is elevated. He is nauseated. Appetite diminished. No vomiting. No change in bowel habits. Pain is now diffuse. Patient with history of heavy alcohol use. Patient still drinking heavily. INR normal. No abdominal surgeries in the past. Patient present in preop with his son Alexandre. - Review of Systems Comment: The patient denies any acute changes in vision or hearing, no dysphagia or odynophagia, no chest pain, no dysuria or hematuria, no headache, no runny nose, no rectal bleeding or melena Past Medical History Past Medical History: Myocardial Infarction (ME), Pneumonia, Seizure Disorder Additional Past Medical History / Comment(s): ETOH abuse with past withdrawal DTs and seizures, last seizure 01/08/20, pt states he is a fall hazard but has no t fallen in past 6 months, pt states he had a "slight" ME approximately 2-3 years ago and was seen at [facility] and shipped to [facility] but states had no cardiac intervention, past R foot fracture which did not heal, past perianal abscess, Last Myocardial Infarction Date:: 2017 History of Any Multi-Drug Resistant Organisms: None Reported Past Surgical History: No Surgical Hx Reported Additional Past Surgical History / Comment(s): Pt states he has never had surgery Past Anesthesia/Blood Transfusion Reactions: No Reported Reaction Additional Past Anesthesia/Blood Transfusion Reaction / Comment(s): "never received any blood transfusions" Past Psychological History: No Psychological Hx Reported Smoking Status: Current every day smoker Past Alcohol Use History: Occasional Past Drug Use History: None Reported - Past Family History Father History Unknown: Yes Family Medical History: Diabetes Mellitus Additional Family Medical History / Comment(s): Father was an alcoholic. Mother History Unknown: Yes Family Medical History: Diabetes Mellitus Additional Family Medical History / Comment(s): Mother is . Medications and Allergies Home Medications Medication Instructions Recorded Confirmed Type Aspirin 81 mg PO DAILY 30 Days #30 chewable 04/17/20 09/05/20 Rx levETIRAcetam [Keppra] 1,500 mg PO BID 09/05/20 09/05/20 History Allergies Allergy/AdvReac Type Severity Reaction Status Date / Time No Known Allergies Allergy Verified 09/05/20 19:23 Surgical - Exam Vital Signs Temp Pulse Resp BP 98.6 F 120 H 18 138/99 09/05/20 16:20 09/05/20 16:20 09/05/20 16:20 09/05/20 16:20 Physical exam: General: Malnourished appearing male, thin, in acute distress related to discomfort HEENT: Normocephalic, sclerae nonicteric Abdomen: Distended, diffuse tenderness with rebound, no palpable masses Extremities: No edema Neuro: Anxious and oriented Results - Labs 09/05/20 16:54 09/05/20 16:54 Abnormal Lab Results - Last 24 Hours (Table) 09/05/20 09/05/20 09/05/20 Range/Units 16:54 16:54 16:54 WBC 18.0 H (3.8-10.6) k/uL RDW 16.2 H (11.5-15.5) % Neutrophils # 16.8 H (1.3-7.7) k/uL Lymphocytes # 0.5 L (1.0-4.8) k/uL Sodium 131 L (137-145) mmol/L Carbon Dioxide 18 L (22-30) mmol/L Creatinine 0.63 L (0.66-1.25) mg/dL Glucose 111 H (74-99) mg/dL Plasma Lactic Acid Tommy 4.4 H* (0.7-2.0) mmol/L Total Bilirubin 1.7 H (0.2-1.3) mg/dL AST 210 H (17-59) U/L ALT 89 H (4-49) U/L Alkaline Phosphatase 1425 H (38-126) U/L Diabetes panel 09/05/20 Range/Units 16:54 Sodium 131 L (137-145) mmol/L Potassium 4.1 (3.5-5.1) mmol/L Chloride 99 (98-107) mmol/L Carbon Dioxide 18 L (22-30) mmol/L BUN 9 (9-20) mg/dL Creatinine 0.63 L (0.66-1.25) mg/dL Glucose 111 H (74-99) mg/dL Calcium 8.7 (8.4-10.2) mg/dL AST 210 H (17-59) U/L ALT 89 H (4-49) U/L Alkaline Phosphatase 1425 H (38-126) U/L Total Protein 7.0 (6.3-8.2) g/dL Albumin 3.7 (3.5-5.0) g/dL Calcium panel 09/05/20 Range/Units 16:54 Calcium 8.7 (8.4-10.2) mg/dL Albumin 3.7 (3.5-5.0) g/dL Pituitary panel 09/05/20 Range/Units 16:54 Sodium 131 L (137-145) mmol/L Potassium 4.1 (3.5-5.1) mmol/L Chloride 99 (98-107) mmol/L Carbon Dioxide 18 L (22-30) mmol/L BUN 9 (9-20) mg/dL Creatinine 0.63 L (0.66-1.25) mg/dL Glucose 111 H (74-99) mg/dL Calcium 8.7 (8.4-10.2) mg/dL Adrenal panel 09/05/20 Range/Units 16:54 Sodium 131 L (137-145) mmol/L Potassium 4.1 (3.5-5.1) mmol/L Chloride 99 (98-107) mmol/L Carbon Dioxide 18 L (22-30) mmol/L BUN 9 (9-20) mg/dL Creatinine 0.63 L (0.66-1.25) mg/dL Glucose 111 H (74-99) mg/dL Calcium 8.7 (8.4-10.2) mg/dL Total Bilirubin 1.7 H (0.2-1.3) mg/dL AST 210 H (17-59) U/L ALT 89 H (4-49) U/L Alkaline Phosphatase 1425 H (38-126) U/L Total Protein 7.0 (6.3-8.2) g/dL Albumin 3.7 (3.5-5.0) g/dL Assessment and Plan (1) Free intraperitoneal air Narrative/Plan: 70-year-old male with diffuse abdominal pain and extensive pneumoperitoneum. Much of the pneumoperitoneum in the upper abdomen and I suspect the etiology is a perforated ulcer. Perforated malignancy is not excluded. Liver findings suggestive of metastatic disease. Clinical scenario discussed with the patient and his son. We'll proceed with urgent exploratory laparotomy. Patient may require bowel resection and her ostomy. Risks of bleeding, infection, hernia, abscess, leak, possible need for ostomy, progressive sepsis, respiratory or cardiac complications, . They understand and wish to proceed. Current Visit: Yes Status: Acute Code(s): K66.8 - OTHER SPECIFIED DISORDERS OF PERITONEUM SNOMED Code(s): 42213790
[2020-09-05] MEDS ORDERED: LACTATED RINGERS 1,000 ML IV ONE ×2 (21:01→21:36)
[2020-09-05] MEDS ORDERED: propofoL 100 ML IV ONE (21:35)
[2020-09-05 21:38] LABS: Glucose,Whole Blood 92 mg/dL (75-99)
--- NOTE | 2020-09-05 21:46 | P.OP ---
Date of Procedure: 09/05/20 Procedure(s) Performed: PREOPERATIVE DIAGNOSIS: Pneumoperitoneum POSTOPERATIVE DIAGNOSIS: Perforated gastric ulcer, multiple masses in the liver consistent with metastasis PROCEDURE: Exploratory laparotomy, repair of perforated gastric ulcer, biopsy liver mass SURGEON: Efren EBL: 100 cc ANESTHESIA: Gen. COMPLICATIONS: None OPERATIVE PROCEDURE: Patient place never table in the supine position. The patient was placed under general anesthesia. Guajardo catheter was placed. Abdomen was prepped and draped sterilely. Upper midline incision was made using the scalpel. Dissection through the subcutaneous tissues and fascia to place using electrocautery. Large amount of succus identified upon entrance into the abdomen. This was evacuated using suction. This was later copiously irrigated with saline. Careful inspection revealed a liver that was full of multiple nodules suspicious for metastasis. There was some adhesion between the posterior aspect of the left lobe of the liver and the gastric wall medially and the region of the cardia and proximal antrum region. I could not visualize a definite perforation until we had a nasogastric tube in place and methylene blue was injected through the nasogastric tube. Then I was able to visualize an 8-9 mm perforation seen along the lesser curvature in the distal cardia region. There was significant induration and mass like tissue both medial and posterior to this. I suspect this may have represented a perforated tumor. Given the significant adhesions in that area I was not able to mobilize the stomach. I performed a modified Yoan patch using interrupted 2-0 silk sutures. No further leakage was seen at that time. A small amount of fat from the lesser curvature was placed over the suture repair. The abdomen was irrigated. I performed an incisional biopsy of one of the larger liver nodules on the right side of the falciform ligament. As we were retracting the liver slightly a tear was seen as the falciform ligament was entering the liver. Pressure was held and later Surgicel was placed. No further bleeding was seen at that time. No further abnormalities were identified with the inspection of the small bowel and colon. A drain was placed posterior to the left lobe of the liver along the mid aspect of the stomach. The fascia was closed using a running double-stranded #1 PDS suture 2. Skin was closed loosely with kb. Sterile dressings were applied. DISPOSITION: Critical intubated to the ICU. Spoke with the patient's son postoperatively. The intraoperative findings were discussed. Patient's prognosis unfortunately is very poor. We have decided to change the CODE STATUS to no code. He will remain on the ventilator overnight. No plans for CPR or defibrillator. Further decisions regarding extent to care will take place tomorrow after we see how the patient handles the immediate postop period.
[2020-09-05 22:21] LABS: ABG Base Excess -5.8 mmol/L; ABG HCO3 21 mmol/L (21-25); ABG Oxygen Saturation 98.6 % (94-97); ABG PCO2 45 mmHg (35-45); ABG PH 7.28 (7.35-7.45); ABG PO2 134 mmHg (83-108); ABG TCO2 22 mmol/L (19-24); Allen Test Performed? Yes
--- NOTE | 2020-09-05 22:32 | XR ---
EXAMINATION TYPE: XR chest 2V DATE OF EXAM: 09/05/2020 COMPARISON: Today HISTORY: Short of breath. Respiratory failure. TECHNIQUE: Single view FINDINGS: There is endotracheal tube 5.5 cm from the mikel. There is nasogastric tube in the stomach . There is some mild infiltrate at the left lung apex. There is old left clavicle fracture. There are no hilar masses. There is no heart failure. Old left-sided rib fractures. IMPRESSION: There is improvement in the pneumoperitoneum compared to exam 4 hours ago. Minimal atelec tasis right lung base. No heart failure.
[2020-09-06] MEDS: HEPARIN SODIUM,PORCINE/PF 5,000 UNIT/0.5 ML SYRINGE SQ SCH ×3 (00:25→16:29)
[2020-09-06] MEDS: PIPERACILLIN-TAZOBACTAM 3.375 GM in SODIUM CHLORIDE 0.9% 100 ML IVPB SCH ×3 (03:59→18:37)
[2020-09-06 04:37] LABS: ALT 93 U/L (4-49); AST 223 U/L (17-59); African American GFR (CKD) >90 (>60 ml/min/1.73 sqM); Albumin 2.7 g/dL (3.5-5.0); Alkaline Phosphatase 964 U/L (38-126); Anion Gap 10 mmol/L; Blood Urea Nitrogen 13 mg/dL (9-20); Calcium 7.9 mg/dL (8.4-10.2); Carbon Dioxide 19 mmol/L (22-30); Chloride 104 mmol/L (98-107); Glucose 95 mg/dL (74-99); Magnesium 1.4 mg/dL (1.6-2.3); Non-African American GFR(CKD) >90 (>60 ml/min/1.73 sqM); Phosphorus 4.2 mg/dL (2.5-4.5); Potassium 5.4 mmol/L (3.5-5.1); Sodium 133 mmol/L (137-145); Total Bilirubin 1.8 mg/dL (0.2-1.3); Total Protein 5.4 g/dL (6.3-8.2)
[2020-09-06 04:40] LABS: Anisocytosis Slight; Basophils % (A) 0 %; Eosinophils % (A) 0 %; HCT 36.2 % (39.0-53.0); HGB 11.1 gm/dL (13.0-17.5); Hypochromasia Slight; Lymphocytes % (A) 5 %; MCH 29.2 pg (25.0-35.0); MCHC 30.7 g/dL (31.0-37.0); Mean Platelet Volume 9.1; Monocytes # (A) 1.3 k/uL (0-1.0); Monocytes % (A) 6 %; Neutrophils % (A) 89 %; Platelet Count 331 k/uL (150-450); RBC 3.81 m/uL (4.30-5.90); RDW 16.3 % (11.5-15.5); WBC 21.5 k/uL (3.8-10.6)
[2020-09-06 04:55] LABS: ABG Base Excess -4.4 mmol/L; ABG HCO3 21 mmol/L (21-25); ABG Oxygen Saturation 98.1 % (94-97); ABG PCO2 35 mmHg (35-45); ABG PH 7.38 (7.35-7.45); ABG PO2 108 mmHg (83-108); ABG TCO2 22 mmol/L (19-24); Allen Test Performed? Yes
[2020-09-06] MEDS ORDERED: Magnesium Replacement Protocol 1 EACH MISC MISCELLANE PRN (06:41)
[2020-09-06] MEDS: SODIUM CHLORIDE 0.9% 1,000 ML IV SCH ×3 (08:05→17:24)
--- NOTE | 2020-09-06 08:08 | XR ---
EXAMINATION TYPE: XR chest 1V portable DATE OF EXAM: 09/06/2020 COMPARISON: 09/05/2020. HISTORY: Pneumoperitoneum. TECHNIQUE: Single frontal view of the chest is obtained. FINDINGS: Endotracheal tube and nasogastric tube are in stable position. Lungs are clear without foc al consolidation, pleural effusion, or pneumothorax. Multiple areas of lucency are seen throughout the lung likely related veins chronic lung disease. IMPRESSION: COPD. No pneumonia. No pneumothorax.
[2020-09-06] MEDS ORDERED: CHLORHEXIDINE GLUCONATE 15 ML CUP MUCOUS MEM SCH (09:00)
[2020-09-06] MEDS: MAGNESIUM SULFATE-D5W PMX 1 GM in DEXTROSE/WATER 1 100ML.BAG IVPB SCH ×3 (09:35→15:34)
[2020-09-06] MEDS: PANTOPRAZOLE 40 MG/10 ML VIAL IV SCH ×2 (09:37→21:15)
--- NOTE | 2020-09-06 10:25 | P.PN ---
Subjective Progress Note Date: 09/06/20 Principal diagnosis: Perforated gastric ulcer Patient remains in the ICU. He is lightly sedated on the ventilator currently. He was evaluated by pulmonary and he is being weaned from the ventilator at this time. Patient had a fairly decent night. Pressure was marginal but was able to make decent urine output and did not require any pressors. Lactic acid slightly improved. White blood cell count also slightly improved. Hemoglobin has been stable. CHAD drain is serosanguineous. Objective - Vital Signs Vital signs: Vital Signs Temp 98.3 F 09/06/20 08:00 Pulse 107 H 09/06/20 09:00 Resp 21 09/06/20 09:00 BP 85/61 09/06/20 09:00 Pulse Ox 99 09/06/20 09:00 Intake & Output 09/05/20 09/06/20 09/06/20 18:59 06:59 18:59 Intake Total 2650.387 390 Output Total 860 0 Balance 1790.387 390 Weight 74.8 kg 77 kg Intake: IV 2580 390 Lactated Ringers 1,000 ml 300 @ 100 mls/hr IV .Q10H [facility] Rx#:[id number] Piperacillin-Tazobactam 3 100 .375 gm In Sodium Chloride 0.9% 100 ml @ 25 mls/hr IVPB Q8H [facility] Rx#: [id number] Sodium Chloride 0.9% 1, 780 390 000 ml @ 130 mls/hr IV . Q7H42M [facility] Rx#:[id number] Intake, IV Titration 70.387 Amount propofoL 1,000 mg In 70.387 Empty Bag 1 bag @ Titrate IV .Q0M [facility] Rx#: [id number] Output: Gastric Drainage 150 Drainage 125 Right Abdomen 125 Urine 485 0 Estimated Blood Loss 100 Other: Voiding Method Indwelling Catheter Indwelling Catheter - Exam Abdomen: Soft, mild distention, dressing intact, CHAD serosanguineous - Labs CBC & Chem 7: 09/06/20 03:25 09/06/20 03:25 Labs: Abnormal Lab Results - Last 24 Hours (Table) 09/05/20 09/05/20 09/05/20 Range/Units 16:54 16:54 16:54 WBC 18.0 H (3.8-10.6) k/uL RBC (4.30-5.90) m/uL Hgb (13.0-17.5) gm/dL Hct (39.0-53.0) % MCHC (31.0-37.0) g/dL RDW 16.2 H (11.5-15.5) % Neutrophils # 16.8 H (1.3-7.7) k/uL Lymphocytes # 0.5 L (1.0-4.8) k/uL Monocytes # (0-1.0) k/uL ABG pH (7.35-7.45) ABG pO2 (83-108) mmHg ABG O2 Saturation (94-97) % Sodium 131 L (137-145) mmol/L Potassium (3.5-5.1) mmol/L Carbon Dioxide 18 L (22-30) mmol/L Creatinine 0.63 L (0.66-1.25) mg/dL Glucose 111 H (74-99) mg/dL Plasma Lactic Acid Tommy 4.4 H* (0.7-2.0) mmol/L Calcium (8.4-10.2) mg/dL Magnesium (1.6-2.3) mg/dL Total Bilirubin 1.7 H (0.2-1.3) mg/dL AST 210 H (17-59) U/L ALT 89 H (4-49) U/L Alkaline Phosphatase 1425 H (38-126) U/L Total Protein (6.3-8.2) g/dL Albumin (3.5-5.0) g/dL 09/05/20 09/05/20 09/06/20 Range/Units 22:14 22:18 01:13 WBC (3.8-10.6) k/uL RBC (4.30-5.90) m/uL Hgb (13.0-17.5) gm/dL Hct (39.0-53.0) % MCHC (31.0-37.0) g/dL RDW (11.5-15.5) % Neutrophils # (1.3-7.7) k/uL Lymphocytes # (1.0-4.8) k/uL Monocytes # (0-1.0) k/uL ABG pH 7.28 L (7.35-7.45) ABG pO2 134 H (83-108) mmHg ABG O2 Saturation 98.6 H (94-97) % Sodium (137-145) mmol/L Potassium (3.5-5.1) mmol/L Carbon Dioxide (22-30) mmol/L Creatinine (0.66-1.25) mg/dL Glucose (74-99) mg/dL Plasma Lactic Acid Tommy 3.2 H* 3.0 H* (0.7-2.0) mmol/L Calcium (8.4-10.2) mg/dL Magnesium (1.6-2.3) mg/dL Total Bilirubin (0.2-1.3) mg/dL AST (17-59) U/L ALT (4-49) U/L Alkaline Phosphatase (38-126) U/L Total Protein (6.3-8.2) g/dL Albumin (3.5-5.0) g/dL 09/06/20 09/06/20 09/06/20 Range/Units 03:25 03:25 04:43 WBC 21.5 H (3.8-10.6) k/uL RBC 3.81 L (4.30-5.90) m/uL Hgb 11.1 L (13.0-17.5) gm/dL Hct 36.2 L (39.0-53.0) % MCHC 30.7 L (31.0-37.0) g/dL RDW 16.3 H (11.5-15.5) % Neutrophils # 19.0 H (1.3-7.7) k/uL Lymphocytes # (1.0-4.8) k/uL Monocytes # 1.3 H (0-1.0) k/uL ABG pH (7.35-7.45) ABG pO2 (83-108) mmHg ABG O2 Saturation 98.1 H (94-97) % Sodium 133 L (137-145) mmol/L Potassium 5.4 H (3.5-5.1) mmol/L Carbon Dioxide 19 L (22-30) mmol/L Creatinine (0.66-1.25) mg/dL Glucose (74-99) mg/dL Plasma Lactic Acid Tommy (0.7-2.0) mmol/L Calcium 7.9 L (8.4-10.2) mg/dL Magnesium 1.4 L (1.6-2.3) mg/dL Total Bilirubin 1.8 H (0.2-1.3) mg/dL AST 223 H (17-59) U/L ALT 93 H (4-49) U/L Alkaline Phosphatase 964 H (38-126) U/L Total Protein 5.4 L (6.3-8.2) g/dL Albumin 2.7 L (3.5-5.0) g/dL 09/06/20 09/06/20 Range/Units 05:31 08:37 WBC (3.8-10.6) k/uL RBC (4.30-5.90) m/uL Hgb (13.0-17.5) gm/dL Hct (39.0-53.0) % MCHC (31.0-37.0) g/dL RDW (11.5-15.5) % Neutrophils # (1.3-7.7) k/uL Lymphocytes # (1.0-4.8) k/uL Monocytes # (0-1.0) k/uL ABG pH (7.35-7.45) ABG pO2 (83-108) mmHg ABG O2 Saturation (94-97) % Sodium (137-145) mmol/L Potassium (3.5-5.1) mmol/L Carbon Dioxide (22-30) mmol/L Creatinine (0.66-1.25) mg/dL Glucose (74-99) mg/dL Plasma Lactic Acid Tommy 2.6 H* 2.7 H* (0.7-2.0) mmol/L Calcium (8.4-10.2) mg/dL Magnesium (1.6-2.3) mg/dL Total Bilirubin (0.2-1.3) mg/dL AST (17-59) U/L ALT (4-49) U/L Alkaline Phosphatase (38-126) U/L Total Protein (6.3-8.2) g/dL Albumin (3.5-5.0) g/dL Assessment and Plan (1) Free intraperitoneal air Narrative/Plan: 70-year-old male with perforated gastric ulcer. This may be related to underlying gastric tumor. Patient with evidence of suspected metastatic disease to the liver. Agree with plans for weaning from ventilator. Patient will require prolonged nothing by mouth status. Will need TPN to be initiated. We'll consult for PICC line. Await findings from liver biopsy before consultation to oncology. Continue broad-spectrum antibiotics. Current Visit: Yes Status: Acute Code(s): K66.8 - OTHER SPECIFIED DISORDERS OF PERITONEUM SNOMED Code(s): 46787861
[2020-09-06] MEDS: metroNIDAZOLE-NS PMX 500 MG in SALINE 1 100ML.BAG IVPB SCH ×2 (12:39→16:50)
[2020-09-06] MEDS: FLUCONAZOLE IN NACL,ISO-OSM 100 MG in SALINE 1 50ML.BAG IVPB SCH (12:39)
[2020-09-06] MEDS ORDERED: LIDOCAINE 1% INJ 10MG/ML (20 ML MDV) SQ ONE (14:07)
--- NOTE | 2020-09-06 14:12 | P.CNPUL ---
History of Present Illness Consult date: 09/06/20 Requesting physician: Vito Schwartz Reason for consult: other (ICU management, patient is status post abdominal surgery) Chief complaint: Abdominal pain History of present illness: This is a 70-year-old male with history of seizure disorder, coronary artery disease and previous DC, history of alcohol withdrawal seizures, patient is maintained on Keppra. Patient presented to the hospital with acute onset of abdominal pain described the pain in the upper abdomen started the morning he presented to the hospital. Pain has become very severe, described it as 10 out of 10. Patient had no previous history of peptic ulcer disease. CT of the abdomen and pelvis and chest x-ray showed no pneumoperitoneum. Patient was also noted to have multiple liver lesions consistent with metastatic disease to the liver. Patient was seen by Dr. bowers on consultation and he was taken straight from the ER to the OR, underwent exploratory laparotomy, repair of perforated gastric ulcer and underwent biopsy of liver mass. Postoperatively, patient was sent to the ICU last night, and I was asked to see him on consultation. Overnight, I manage his ventilator settings and I saw today, patient is on grisel t control rate of 12 tidal volume is 500 FiO2 40% and PEEP of 5 ABG showed a pO2 of 108 pCO2 of 35 pH of 7.38. Patient is on propofol at 55 mcg/kg/m, and his IV fluid is at 13 0 mL per hour. A shunt is not requiring any pressors, however his blood pressure is marginal and I recommended a bolus of 1 L of saline to be given. Chest x-ray was reviewed, showed minimal bibasilar atelectasis. Doubt p neumonia. Evaluated his labs, and I recommended holding propofol, I also recommended eventually transitioning the patient to a pressure support of 10 and CPAP. One hour later, patient seemed to tolerate pressure support and CPAP quite well, then proceeded to extubating the patient to nasal cannula. Review of Systems ROS unobtainable: due to endotracheal tube Past Medical History Past Medical History: Myocardial Infarction (DC), Pneumonia, Seizure Disorder Additional Past Medical History / Comment(s): ETOH abuse with past withdrawal DTs and seizures, last seizure 01/08/20, pt states he is a fall hazard but has not fallen in past 6 months, pt states he had a "slight" DC approximately 2-3 years ago and was seen at [facility] and shipped to [facility] but states had no cardiac intervention, past R foot fracture which did not heal, past perianal abscess, Last Myocardial Infarction Date:: 2017 History of Any Multi-Drug Resistant Organisms: None Reported Past Surgical History: No Surgical Hx Reported Additional Past Surgical History / Comment(s): Pt states he has never had surgery Past Anesthesia/Blood Transfusion Reactions: No Reported Reaction Additional Past Anesthesia/Blood Transfusion Reaction / Comment(s): "never received any blood transfusions" Past Psychological History: No Psychological Hx Reported Smoking Status: Current every day smoker Past Alcohol Use History: Occasional Past Drug Use History: None Reported - Past Family History Father History Unknown: Yes Family Medical History: Diabetes Mellitus Additional Family Medical History / Comment(s): Father was an alcoholic. Mother History Unknown: Yes Family Medical History: Diabetes Mellitus Additional Family Medical History / Comment(s): Mother is . Medications and Allergies Home Medications Medication Instructions Recorded Confirmed Type Aspirin 81 mg PO DAILY 30 Days #30 chewable 04/17/20 09/05/20 Rx levETIRAcetam [Keppra] 1,500 mg PO BID 09/05/20 09/05/20 History Allergies Allergy/AdvReac Type Severity Reaction Status Date / Time No Known Allergies Allergy Verified 09/05/20 19:23 Physical Exam Vitals: Vital Signs Temp Pulse Resp BP Pulse Ox 09/06/20 12:00 98.9 F 100 21 102/82 98 09/06/20 11:00 95 20 97/71 98 09/06/20 10:00 87 21 98/73 98 09/06/20 09:00 107 H 21 85/61 99 09/06/20 08:30 104 H 20 95/67 98 09/06/20 08:00 98.3 F 105 H 22 99/73 99 09/06/20 07:30 108 H 23 81/63 100 09/06/20 07:00 102 H 19 86/66 99 09/06/20 06:30 104 H 19 84/63 99 09/06/20 06:00 102 H 19 83/66 98 09/06/20 05:30 102 H 20 91/71 99 09/06/20 05:00 101 H 20 86/67 100 09/06/20 04:30 102 H 21 94/68 99 09/06/20 04:00 97.8 F 104 H 18 97/75 99 09/06/20 03:30 104 H 19 118/89 100 09/06/20 03:00 102 H 19 89/72 09/06/20 02:30 105 H 17 90/68 09/06/20 02:00 104 H 20 98/76 98 09/06/20 01:30 105 H 20 100/80 09/06/20 01:00 105 H 19 94/74 98 09/06/20 00:30 110 H 20 09/06/20 00:00 98.2 F 112 H 20 93/74 95 09/05/20 23:57 95 09/05/20 23:30 115 H 19 105/79 09/05/20 23:00 118 H 18 111/84 95 09/05/20 22:30 107 H 18 123/95 09/05/20 22:00 106 H 19 155/99 95 09/05/20 21:35 97.3 F L 103 H 13 146/97 98 09/05/20 19:14 117 H 18 109/76 98 09/05/20 19:00 114 H 16 109/76 98 09/05/20 18:55 97.3 F L 128 H 20 127/79 98 09/05/20 18:00 123 H 18 139/100 100 09/05/20 17:00 135 H 18 149/108 98 09/05/20 16:35 98 09/05/20 16:20 98.6 F 120 H 18 138/99 Intake and Output 09/05/20 09/06/20 09/06/20 22:59 06:59 14:59 Intake Total 1500 1150.387 780 Output Total 470 390 40 Balance 1030 760.387 740 Intake: IV 1500 1080 780 Lactated Ringers 1,000 ml 100 200 @ 100 mls/hr IV .Q10H ONE Rx#:[id number] Piperacillin-Tazobactam 3 100 .375 gm In Sodium Chloride 0.9% 100 ml @ 25 mls/hr IVPB Q8H [facility] Rx#: [id number] Sodium Chloride 0.9% 1, 780 780 000 ml @ 130 mls/hr IV . Q7H42M [facility] Rx#:[id number] Intake, IV Titration 70.387 Amount propofoL 1,000 mg In 70.387 Empty Bag 1 bag @ Titrate IV .Q0M [facility] Rx#: [id number] Output: Gastric Drainage 150 Drainage 50 75 Right Abdomen 50 75 Urine 320 165 40 Estimated Blood Loss 100 Other: Voiding Method Indwelling Catheter Indwelling Catheter Weight 74.8 kg 77 kg Physical Exam: Revealed a 70-year-old male in no distress. Intubated, sedated, on mechanical ventilation. Head: Atraumatic, normocephalic. The tracheal tube and nasogastric tube are intact ENT: PERRLA, EOMI, no neck masses, no thyromegaly, dry mucous membranes. Chest: [Diminished breath sound bilaterally no crackles or rhonchi or wheezes. Cardiac Exam: [Normal S1 and S2, no S3 gallop, no murmur.] Abdomen: [No surgical, Soft, nontender, no megaly, no rebound, no guarding, no bowel sounds. Surgical incision looks clean and CHAD drain noted with minimal serosanguineous drainage. Extremities: [No clubbing, no edema, no cyanosis.] Good pulses bilaterally. Musculoskeletal: No deformities. Neurological Exam: Not be assessed, patient is sedated, on propofol which I have discontinued Psychiatric: Could not assess. Skin: No rashes Results - Laboratory Findings CBC and BMP: 09/06/20 03:25 09/06/20 03:25 ABG ABG pH 7.38 (7.35-7.45) 09/06/20 04:43 ABG pCO2 35 mmHg (35-45) 09/06/20 04:43 ABG pO2 108 mmHg (83-108) 09/06/20 04:43 ABG O2 Saturation 98.1 % (94-97) H 09/06/20 04:43 PT/INR, D-dimer PT 11.4 sec (9.0-12.0) 09/05/20 16:54 INR 1.1 (<1.2) 09/05/20 16:54 Abnormal lab findings: Abnormal Labs 09/05/20 09/05/20 09/05/20 16:54 16:54 16:54 WBC 18.0 H RBC Hgb Hct MCHC RDW 16.2 H Neutrophils # 16.8 H Lymphocytes # 0.5 L Monocytes # ABG pH ABG pO2 ABG O2 Saturation Sodium 131 L Potassium Carbon Dioxide 18 L Creatinine 0.63 L Glucose 111 H Plasma Lactic Acid Tommy 4.4 H* Calcium Magnesium Total Bilirubin 1.7 H AST 210 H ALT 89 H Alkaline Phosphatase 1425 H Total Protein Albumin 09/05/20 09/05/20 09/06/20 22:14 22:18 01:13 WBC RBC Hgb Hct MCHC RDW Neutrophils # Lymphocytes # Monocytes # ABG pH 7.28 L ABG pO2 134 H ABG O2 Saturation 98.6 H Sodium Potassium Carbon Dioxide Creatinine Glucose Plasma Lactic Acid Tommy 3.2 H* 3.0 H* Calcium Magnesium Total Bilirubin AST ALT Alkaline Phosphatase Total Protein Albumin 09/06/20 09/06/20 09/06/20 03:25 03:25 04:43 WBC 21.5 H RBC 3.81 L Hgb 11.1 L Hct 36.2 L MCHC 30.7 L RDW 16.3 H Neutrophils # 19.0 H Lymphocytes # Monocytes # 1.3 H ABG pH ABG pO2 ABG O2 Saturation 98.1 H Sodium 133 L Potassium 5.4 H Carbon Dioxide 19 L Creatinine Glucose Plasma Lactic Acid Tommy Calcium 7.9 L Magnesium 1.4 L Total Bilirubin 1.8 H AST 223 H ALT 93 H Alkaline Phosphatase 964 H Total Protein 5.4 L Albumin 2.7 L 09/06/20 09/06/20 09/06/20 05:31 08:37 11:35 WBC RBC Hgb Hct MCHC RDW Neutrophils # Lymphocytes # Monocytes # ABG pH ABG pO2 ABG O2 Saturation Sodium Potassium Carbon Dioxide Creatinine Glucose Plasma Lactic Acid Tommy 2.6 H* 2.7 H* 2.2 H* Calcium Magnesium Total Bilirubin AST ALT Alkaline Phosphatase Total Protein Albumin - Diagnostic Findings Chest x-ray: image reviewed (Noted in HPI.) Assessment and Plan Assessment: Impression: Perforated gastric ulcer, status post gastric ulcer. And biopsy of multiple liver lesions highly suspicious for metastatic disease to the liver. Postoperative day #1. Acute surgical abdomen on presentation requiring exploratory laparotomy, repair of a perforated gastric ulcer and requiring biopsy of liver lesions. History of seizure disorder, patient is normally on Keppra. Possible history of alcoholism. Suspect underlying COPD based on his chest x-ray. Presently in active. Elevated liver enzymes most likely secondary to metastatic disease to the liver. Recommendation: Continue ventilatory support, however will likely wean and extubate the patient today after tolerating pressure support and CPAP mode of mechanical ventilation. Continue IV fluids and continue to monitor hemodynamic status. GI and DVT prophylaxis. We'll discuss nutritional support with surgery on the case. Close monitoring for potential alcohol withdrawal, will place the patient on the CIWA protocol. Early ambulation. Based on the biopsy report from the liver further recommendations will follow. May have to consider oncologic consultation. Incentive spirometry post extubation. Discontinue unnecessary catheters after extubation. We'll continue to follow closely in the ICU. Prognosis is guarded. Time with Patient: Greater than 30
[2020-09-06] MEDS ORDERED: LORazepam 2 MG/ML INJ IV PRN ×2 (14:13)
[2020-09-06] MEDS ORDERED: THIAMINE 100 MG/ML 2 ML VIAL IM STA (14:13)
--- NOTE | 2020-09-06 14:40 | XR ---
EXAMINATION TYPE: XR chest 1V portable DATE OF EXAM: 09/06/2020 HISTORY: PICC line placement COMPARISON: None. TECHNIQUE: Single view of the chest is submitted. FINDINGS: Right-sided PICC line noted with its distal tip within the right subclavian vein and should be reposi tioned. No pneumothorax is evident. NG tube is seen coursing into the stomach. The heart is stable. Hilar and mediastinal structures are within normal limits. Degenerative changes are seen of the dorsal spine. IMPRESSION: 1. Chronic changes without evidence for acute pulmonary disease.
--- NOTE | 2020-09-06 14:42 | XR ---
EXAMINATION TYPE: XR chest 1V portable DATE OF EXAM: 09/06/2020 HISTORY: Shortness of breath. COMPARISON: 09/06/2020 TECHNIQUE: Single view of the chest is submitted. FINDINGS: PICC line has been repositioned its distal tip overlies the SVC. There is no evidence for focal infiltrate. The heart is stable. Hilar and mediastinal structures are within normal limits. Degenerative changes are seen of the dorsal spine. IMPRESSION: 1. PICC line has been repositioned its distal tip overlies the SVC.
--- NOTE | 2020-09-06 16:55 | IR ---
EXAMINATION TYPE: IR cvc insert >=5 years DATE OF EXAM: 09/06/2020 COMPARISON: NONE HISTORY: Needs long-term intravenous access for total parenteral nutrition FINDINGS: Maximal barrier technique was utilized. Hand hygiene obtained with soap and water and alco hol-based hand rub. The skin overlying the left brachial vein was localized with ultrasound and noted to be compressible and patent by ultrasound. An ultrasound image was obtained and submitted on lexa ent's chart. Sterile technique utilized with the ultrasound machine. The skin overlying was prepped a nd draped and Lidocaine used for local anesthesia. A skin priscilla was made with a scalpel. Access was gained to the vein under direct ultrasound guidance with a 21-gauge needle and a 0.018 inch wire was advanced. Access site was dilated with a peel-away sheath and the catheter tailored to length. Cath eter advanced centrally and a post procedure chest x-ray showed catheter tip coursing cephalad, greta ter tip was repositioned and subsequent chest x-ray verified placement with tip at the superior vena cava. Catheter was fixed to the skin and a sterile dressing placed. Hemostasis achieved and the cat heter was aspirated and flushed with sterile saline. The patient remained in stable condition. IMPRESSION: STATUS POST ULTRASOUND GUIDED PICC LINE PLACEMENT, READY FOR USE. THIS PROCEDURE WAS PER FORMED BY THE UNDERSIGNED.
--- NOTE | 2020-09-06 16:56 | P.CONS ---
History of Present Illness - Reason for Consult Consult date: 09/06/20 Medical management - Chief Complaint Abdominal pain - History of Present Illness 70-year-old male with history of seizure disorder, coronary artery disease and previous [place], history of alcohol withdrawal seizures, patient is maintained on Keppra. Patient presented to the hospital with acute onset of abdominal pain described the pain in the upper abdomen started the morning he presented to the hospital. Pain has become very severe, described it as 10 out of 10. Patient had no previous history of peptic ulcer disease. CT of the abdomen and pelvis and chest x-ray showed no pneumoperitoneum. Patient was also noted to have multiple liver lesions consistent with metastatic disease to the liver. Patient was seen by Dr. bowers on consultation and he was taken straight from the ER to the OR, underwent exploratory laparotomy, repair of perforated gastric ulcer and underwent biopsy of liver mass. Postoperatively, patient was intubated and mechanically ventilated and was sent to the ICU Patient was successfully extubated this morning and is maintaining O2 saturation above 95% on 4 L Review of Systems REVIEW OF SYSTEMS: CONSTITUTIONAL: No fever, no malaise, no fatigue. HEENT: No recent visual problems or hearing problems. Denied any sore throat. CARDIOVASCULAR: No chest pain, orthopnea, PND, no palpitations, no syncope. PULMONARY: No shortness of breath, no cough, no hemoptysis. GASTROINTESTINAL: abdominal pain. NEUROLOGICAL: No headaches, no weakness, no numbness. HEMATOLOGICAL: Denies any bleeding or petechiae. GENITOURINARY: Denies any burning micturition, frequency, or urgency. MUSCULOSKELETAL/RHEUMATOLOGICAL: Denies any joint pain, swelling, or any muscle pain. ENDOCRINE: Denies any polyuria or polydipsia. The rest of the 14-point review of systems is negative. Past Medical History Past Medical History: Myocardial Infarction ([place]), Pneumonia, Seizure Disorder Additional Past Medical History / Comment(s): ETOH abuse with past withdrawal DTs and seizures, last seizure 01/08/20, pt states he is a fall hazard but has not fallen in past 6 months, pt states he had a "slight" [place] approximately 2-3 years ago and was seen at [facility] and shipped to [facility] but states had no cardiac intervention, past R foot fracture which did not heal, past perianal abscess, Last Myocardial Infarction Date:: 2017 History of Any Multi-Drug Resistant Organisms: None Reported Past Surgical History: No Surgical Hx Reported Additional Past Surgical History / Comment(s): Pt states he has never had surgery Past Anesthesia/Blood Transfusion Reactions: No Reported Reaction Additional Past Anesthesia/Blood Transfusion Reaction / Comm: "never received any blood transfusions" Past Psychological History: No Psychological Hx Reported Smoking Status: Current every day smoker Past Alcohol Use History: Occasional Past Drug Use History: None Reported - Past Family History Father History Unknown: Yes Family Medical History: Diabetes Mellitus Additional Family Medical History / Comment(s): Father was an alcoholic. Mother History Unknown: Yes Family Medical History: Diabetes Mellitus Additional Family Medical History / Comment(s): Mother is . Medications and Allergies Home Medications Medication Instructions Recorded Confirmed Type Aspirin 81 mg PO DAILY 30 Days #30 chewable 04/17/20 09/05/20 Rx levETIRAcetam [Keppra] 1,500 mg PO BID 09/05/20 09/05/20 History Allergies Allergy/AdvReac Type Severity Reaction Status Date / Time No Known Allergies Allergy Verified 09/05/20 19:23 Physical Exam Vitals: Vital Signs Temp Pulse Resp BP Pulse Ox 09/06/20 12:00 98.9 F 100 21 102/82 98 09/06/20 11:00 95 20 97/71 98 09/06/20 10:00 87 21 98/73 98 09/06/20 09:00 107 H 21 85/61 99 09/06/20 08:30 104 H 20 95/67 98 09/06/20 08:00 98.3 F 105 H 22 99/73 99 09/06/20 07:30 108 H 23 81/63 100 09/06/20 07:00 102 H 19 86/66 99 09/06/20 06:30 104 H 19 84/63 99 09/06/20 06:00 102 H 19 83/66 98 09/06/20 05:30 102 H 20 91/71 99 09/06/20 05:00 101 H 20 86/67 100 09/06/20 04:30 102 H 21 94/68 99 09/06/20 04:00 97.8 F 104 H 18 97/75 99 09/06/20 03:30 104 H 19 118/89 100 09/06/20 03:00 102 H 19 89/72 09/06/20 02:30 105 H 17 90/68 09/06/20 02:00 104 H 20 98/76 98 09/06/20 01:30 105 H 20 100/80 09/06/20 01:00 105 H 19 94/74 98 09/06/20 00:30 110 H 20 09/06/20 00:00 98.2 F 112 H 20 93/74 95 09/05/20 23:57 95 09/05/20 23:30 115 H 19 105/79 09/05/20 23:00 118 H 18 111/84 95 09/05/20 22:30 107 H 18 123/95 09/05/20 22:00 106 H 19 155/99 95 09/05/20 21:35 97.3 F L 103 H 13 146/97 98 09/05/20 19:14 117 H 18 109/76 98 09/05/20 19:00 114 H 16 109/76 98 09/05/20 18:55 97.3 F L 128 H 20 127/79 98 09/05/20 18:00 123 H 18 139/100 100 09/05/20 17:00 135 H 18 149/108 98 09/05/20 16:35 98 09/05/20 16:20 98.6 F 120 H 18 138/99 Intake and Output 09/05/20 09/06/20 09/06/20 22:59 06:59 14:59 Intake Total 1500 1150.387 780 Output Total 470 390 40 Balance 1030 760.387 740 Intake: IV 1500 1080 780 Lactated Ringers 1,000 ml 100 200 @ 100 mls/hr IV .Q10H ONE Rx#:[id number] Piperacillin-Tazobactam 3 100 .375 gm In Sodium Chloride 0.9% 100 ml @ 25 mls/hr IVPB Q8H [facility] Rx#: [id number] Sodium Chloride 0.9% 1, 780 780 000 ml @ 130 mls/hr IV . Q7H42M [facility] Rx#:[id number] Intake, IV Titration 70.387 Amount propofoL 1,000 mg In 70.387 Empty Bag 1 bag @ Titrate IV .Q0M [facility] Rx#: [id number] Output: Gastric Drainage 150 Drainage 50 75 Right Abdomen 50 75 Urine 320 165 40 Estimated Blood Loss 100 Other: Voiding Method Indwelling Catheter Indwelling Catheter Weight 74.8 kg 77 kg Head: Atraumatic, normocephalic. The tracheal tube and nasogastric tube are intact ENT: PERRLA, EOMI, no neck masses, no thyromegaly, dry mucous membranes. Chest: [Diminished breath sound bilaterally no crackles or rhonchi or wheezes. Cardiac Exam: [Normal S1 and S2, no S3 gallop, no murmur.] Abdomen: [No surgical, Soft, nontender, no megaly, no rebound, no guarding, no bowel sounds. Surgical incision looks clean and CHAD drain noted with minimal serosanguineous drainage. Extremities: [No clubbing, no edema, no cyanosis.] Good pulses bilaterally. Musculoskeletal: No deformities. Neurological Exam: Patient is awake and alert; moves all 4 extremities Psychiatric: Could not assess. Skin: No rashes Results CBC & Chem 7: 09/06/20 03:25 09/06/20 03:25 Labs: Abnormal Lab Results - Last 24 Hours (Table) 09/05/20 09/05/20 09/05/20 Range/Units 16:54 16:54 16:54 WBC 18.0 H (3.8-10.6) k/uL RBC (4.30-5.90) m/uL Hgb (13.0-17.5) gm/dL Hct (39.0-53.0) % MCHC (31.0-37.0) g/dL RDW 16.2 H (11.5-15.5) % Neutrophils # 16.8 H (1.3-7.7) k/uL Lymphocytes # 0.5 L (1.0-4.8) k/uL Monocytes # (0-1.0) k/uL ABG pH (7.35-7.45) ABG pO2 (83-108) mmHg ABG O2 Saturation (94-97) % Sodium 131 L (137-145) mmol/L Potassium (3.5-5.1) mmol/L Carbon Dioxide 18 L (22-30) mmol/L Creatinine 0.63 L (0.66-1.25) mg/dL Glucose 111 H (74-99) mg/dL Plasma Lactic Acid Tommy 4.4 H* (0.7-2.0) mmol/L Calcium (8.4-10.2) mg/dL Magnesium (1.6-2.3) mg/dL Total Bilirubin 1.7 H (0.2-1.3) mg/dL AST 210 H (17-59) U/L ALT 89 H (4-49) U/L Alkaline Phosphatase 1425 H (38-126) U/L Total Protein (6.3-8.2) g/dL Albumin (3.5-5.0) g/dL 09/05/20 09/05/20 09/06/20 Range/Units 22:14 22:18 01:13 WBC (3.8-10.6) k/uL RBC (4.30-5.90) m/uL Hgb (13.0-17.5) gm/dL Hct (39.0-53.0) % MCHC (31.0-37.0) g/dL RDW (11.5-15.5) % Neutrophils # (1.3-7.7) k/uL Lymphocytes # (1.0-4.8) k/uL Monocytes # (0-1.0) k/uL ABG pH 7.28 L (7.35-7.45) ABG pO2 134 H (83-108) mmHg ABG O2 Saturation 98.6 H (94-97) % Sodium (137-145) mmol/L Potassium (3.5-5.1) mmol/L Carbon Dioxide (22-30) mmol/L Creatinine (0.66-1.25) mg/dL Glucose (74-99) mg/dL Plasma Lactic Acid Tommy 3.2 H* 3.0 H* (0.7-2.0) mmol/L Calcium (8.4-10.2) mg/dL Magnesium (1.6-2.3) mg/dL Total Bilirubin (0.2-1.3) mg/dL AST (17-59) U/L ALT (4-49) U/L Alkaline Phosphatase (38-126) U/L Total Protein (6.3-8.2) g/dL Albumin (3.5-5.0) g/dL 09/06/20 09/06/20 09/06/20 Range/Units 03:25 03:25 04:43 WBC 21.5 H (3.8-10.6) k/uL RBC 3.81 L (4.30-5.90) m/uL Hgb 11.1 L (13.0-17.5) gm/dL Hct 36.2 L (39.0-53.0) % MCHC 30.7 L (31.0-37.0) g/dL RDW 16.3 H (11.5-15.5) % Neutrophils # 19.0 H (1.3-7.7) k/uL Lymphocytes # (1.0-4.8) k/uL Monocytes # 1.3 H (0-1.0) k/uL ABG pH (7.35-7.45) ABG pO2 (83-108) mmHg ABG O2 Saturation 98.1 H (94-97) % Sodium 133 L (137-145) mmol/L Potassium 5.4 H (3.5-5.1) mmol/L Carbon Dioxide 19 L (22-30) mmol/L Creatinine (0.66-1.25) mg/dL Glucose (74-99) mg/dL Plasma Lactic Acid Tommy (0.7-2.0) mmol/L Calcium 7.9 L (8.4-10.2) mg/dL Magnesium 1.4 L (1.6-2.3) mg/dL Total Bilirubin 1.8 H (0.2-1.3) mg/dL AST 223 H (17-59) U/L ALT 93 H (4-49) U/L Alkaline Phosphatase 964 H (38-126) U/L Total Protein 5.4 L (6.3-8.2) g/dL Albumin 2.7 L (3.5-5.0) g/dL 09/06/20 09/06/20 09/06/20 Range/Units 05:31 08:37 11:35 WBC (3.8-10.6) k/uL RBC (4.30-5.90) m/uL Hgb (13.0-17.5) gm/dL Hct (39.0-53.0) % MCHC (31.0-37.0) g/dL RDW (11.5-15.5) % Neutrophils # (1.3-7.7) k/uL Lymphocytes # (1.0-4.8) k/uL Monocytes # (0-1.0) k/uL ABG pH (7.35-7.45) ABG pO2 (83-108) mmHg ABG O2 Saturation (94-97) % Sodium (137-145) mmol/L Potassium (3.5-5.1) mmol/L Carbon Dioxide (22-30) mmol/L Creatinine (0.66-1.25) mg/dL Glucose (74-99) mg/dL Plasma Lactic Acid Tommy 2.6 H* 2.7 H* 2.2 H* (0.7-2.0) mmol/L Calcium (8.4-10.2) mg/dL Magnesium (1.6-2.3) mg/dL Total Bilirubin (0.2-1.3) mg/dL AST (17-59) U/L ALT (4-49) U/L Alkaline Phosphatase (38-126) U/L Total Protein (6.3-8.2) g/dL Albumin (3.5-5.0) g/dL Assessment and Plan Assessment: 1. Perforated gastric ulcer; patient is status post repair; POD #1 - Patient has been successfully extubated but remains in ICU; remains on IV fluids; remains on IV antibiotics in form of Zosyn and metronidazole - mold maker helper service following and recommending nutritional support after discu ssion with primary service - Continue incentive spirometry every hour while awake 2. Multiple liver lesions; suspicious for metastatic disease; liver enzymes are elevated; patient underwent biopsy of liver lesions; results are pending; further recommendations after results are available with possible oncology consultation 3. Seizure disorder; we will resume home dose of Keppra 1500 mg twice a day via NG tube 4. History of alcoholism - Patient has since placed on Cipro protocol with Ativan for potential alcohol withdrawal; continue with thiamine and folic acid 5. COPD; not in exacerbation; patient remains on DuoNeb nebulizer treatments 4 times a day when necessary DVT prophylaxis; SCDs/subcu heparin CODE STATUS; DO NOT RESUSCITATE
[2020-09-06] MEDS: THIAMINE 100 MG TAB PO SCH (18:37)
[2020-09-06] MEDS: HYDROmorphone 0.5 MG/0.5 ML SYRINGE IVP PRN (21:14)
[2020-09-07] MEDS: metroNIDAZOLE-NS PMX 500 MG in SALINE 1 100ML.BAG IVPB SCH ×3 (00:30→15:34)
[2020-09-07] MEDS: HYDROmorphone 0.5 MG/0.5 ML SYRINGE IVP PRN ×5 (00:30→23:43)
[2020-09-07] MEDS: HEPARIN SODIUM,PORCINE/PF 5,000 UNIT/0.5 ML SYRINGE SQ SCH ×3 (00:30→15:35)
[2020-09-07] MEDS: SODIUM CHLORIDE 0.9% 1,000 ML IV SCH ×4 (02:00→21:13)
[2020-09-07 04:08] LABS: Anisocytosis Slight; Basophils % (A) 0 %; Eosinophils % (A) 0 %; HCT 28.4 % (39.0-53.0); Hypochromasia Slight; Lymphocytes # (A) 0.8 k/uL (1.0-4.8); Lymphocytes % (A) 5 %; MCH 30.5 pg (25.0-35.0); MCHC 32.6 g/dL (31.0-37.0); MCV 93.4 fL (80.0-100.0); Mean Platelet Volume 8.3; Monocytes # (A) 0.8 k/uL (0-1.0); Monocytes % (A) 5 %; Neutrophils # (A) 13.4 k/uL (1.3-7.7); Neutrophils % (A) 89 %; Platelet Count 242 k/uL (150-450); RBC 3.05 m/uL (4.30-5.90); RDW 16.2 % (11.5-15.5); WBC 15.2 k/uL (3.8-10.6)
[2020-09-07 04:12] LABS: HGB 9.3 gm/dL (13.0-17.5)
[2020-09-07 04:38] LABS: Potassium 4.5 mmol/L (3.5-5.1)
[2020-09-07 04:39] LABS: ALT 133 U/L (4-49); AST 319 U/L (17-59); African American GFR (CKD) >90 (>60 ml/min/1.73 sqM); Albumin 2.3 g/dL (3.5-5.0); Alkaline Phosphatase 1117 U/L (38-126); Anion Gap 6 mmol/L; Blood Urea Nitrogen 20 mg/dL (9-20); Calcium 7.4 mg/dL (8.4-10.2); Carbon Dioxide 22 mmol/L (22-30); Chloride 108 mmol/L (98-107); Glucose 97 mg/dL (74-99); Magnesium 1.9 mg/dL (1.6-2.3); Non-African American GFR(CKD) >90 (>60 ml/min/1.73 sqM); Sodium 136 mmol/L (137-145); Total Bilirubin 1.4 mg/dL (0.2-1.3); Total Protein 4.8 g/dL (6.3-8.2)
[2020-09-07] MEDS: PIPERACILLIN-TAZOBACTAM 3.375 GM in SODIUM CHLORIDE 0.9% 100 ML IVPB SCH ×3 (06:08→19:07)
--- NOTE | 2020-09-07 07:13 | XR ---
EXAMINATION TYPE: XR chest 1V portable DATE OF EXAM: 09/07/2020 COMPARISON: 09/07/2019 HISTORY: Shortness of breath TECHNIQUE: Single frontal view of the chest is obtained. FINDINGS: NG tube and PICC line stable. Bilateral granulomatous disease noted and there is hyperinfl ation. Heart size normal. Atherosclerotic change aorta. No pneumothorax or consolidation. Chronic rib deformities on the right. Sclerotic density along the right humerus. Remote trauma left clavicle. IMPRESSION: COPD and changes of chronic granulomatous disease.
[2020-09-07] MEDS: THIAMINE 100 MG TAB PO SCH ×2 (09:09→17:35)
[2020-09-07] MEDS: MAGNESIUM SULFATE-D5W PMX 1 GM in DEXTROSE/WATER 1 100ML.BAG IVPB SCH ×2 (09:19→11:19)
[2020-09-07] MEDS: PANTOPRAZOLE 40 MG/10 ML VIAL IV SCH ×2 (09:19→21:15)
[2020-09-07] MEDS: FLUCONAZOLE IN NACL,ISO-OSM 100 MG in SALINE 1 50ML.BAG IVPB SCH (09:20)
--- NOTE | 2020-09-07 10:15 | P.PN ---
Subjective Progress Note Date: 09/07/20 Principal diagnosis: Perforated gastric ulcer Patient was extubated yesterday. Appears comfortable however states this pain is 10 out of 10. CHAD is serosanguineous. The patient's nasogastric tube is mostly serosanguineous in appearance as well. Labs noted. Hemoglobin decreased to 9.3. No bowel function. Objective - Vital Signs Vital signs: Vital Signs Temp 98.9 F 09/07/20 08:00 Pulse 84 09/07/20 09:00 Resp 13 09/07/20 09:00 BP 113/79 09/07/20 09:00 Pulse Ox 98 09/07/20 09:00 Intake & Output 09/06/20 09/07/20 09/07/20 18:59 06:59 18:59 Intake Total 1560 2040 130 Output Total 265 870 45 Balance 1295 1170 85 Weight 79.2 kg Intake: IV 1560 1560 130 Sodium Chloride 0.9% 1, 1560 1560 130 000 ml @ 130 mls/hr IV . Q7H42M [facility] Rx#:[id number] Oral 480 Output: Drainage 160 Right Abdomen 160 Urine 265 710 45 Other: Voiding Method Indwelling Catheter Indwelling Catheter Indwelling Catheter - Exam Abdomen: Soft, nondistended, dressing with some strikethrough, mild tenderness - Labs CBC & Chem 7: 09/07/20 03:51 09/07/20 03:51 Labs: Abnormal Lab Results - Last 24 Hours (Table) 09/06/20 09/07/20 09/07/20 Range/Units 11:35 03:51 03:51 WBC 15.2 H (3.8-10.6) k/uL RBC 3.05 L (4.30-5.90) m/uL Hgb 9.3 L D (13.0-17.5) gm/dL Hct 28.4 L (39.0-53.0) % RDW 16.2 H (11.5-15.5) % Neutrophils # 13.4 H (1.3-7.7) k/uL Lymphocytes # 0.8 L (1.0-4.8) k/uL Sodium 136 L (137-145) mmol/L Chloride 108 H (98-107) mmol/L Plasma Lactic Acid Tommy 2.2 H* (0.7-2.0) mmol/L Calcium 7.4 L (8.4-10.2) mg/dL Total Bilirubin 1.4 H (0.2-1.3) mg/dL AST 319 H (17-59) U/L ALT 133 H (4-49) U/L Alkaline Phosphatase 1117 H (38-126) U/L Total Protein 4.8 L (6.3-8.2) g/dL Albumin 2.3 L (3.5-5.0) g/dL Microbiology - Last 24 Hours (Table) 09/05/20 18:13 Blood Culture - Preliminary Blood No Growth after 24 hours Assessment and Plan (1) Free intraperitoneal air Narrative/Plan: Keep nasogastric tube in place. Continue antiacid therapy. Continue antibiotics. Await biopsy from liver mass. Current Visit: Yes Status: Acute Code(s): K66.8 - OTHER SPECIFIED DISORDERS OF PERITONEUM SNOMED Code(s): 70319937
--- NOTE | 2020-09-07 11:19 | P.PN ---
Subjective Progress Note Date: 09/07/20 Principal diagnosis: Perforated gastric ulcer, status post gastric ulcer. And biopsy of multiple liver lesions highly suspicious for metastatic disease to the liver. Postoperative day #2 This is a 70-year-old male with history of seizure disorder, coronary artery disease and previous [place], history of alcohol withdrawal seizures, patient is maintained on Keppra. Patient presented to the hospital with acute onset of abdominal pain described the pain in the upper abdomen started the morning he presented to the hospital. Pain has become very severe, described it as 10 out of 10. Patient had no previous history of peptic ulcer disease. CT of the abdomen and pelvis and chest x-ray showed no pneumoperitoneum. Patient was also noted to have multiple liver lesions consistent with metastatic disease to the liver. Patient was seen by Dr. bowers on consultation and he was taken straight from the ER to the OR, underwent exploratory laparotomy, repair of perforated gastric ulcer and underwent biopsy of liver mass. Postoperatively, patient was sent to the ICU last night, and I was asked to see him on consultation. Overnight, I manage his ventilator settings and I saw today, patient is on assist control rate of 12 tidal volume is 500 FiO2 40% and PEEP of 5 ABG showed a pO2 of 108 pCO2 of 35 pH of 7.38. Patient is on propofol at 55 mcg/kg/m, and his IV fluid is at 13 0 mL per hour. A shunt is not requiring any pressors, however his blood pressure is marginal and I recommended a bolus of 1 L of saline to be given. Chest x-ray was reviewed, showed minimal bibasilar atelectasis. Doubt pneumonia. Evaluated his labs, and I recommended holding propofol, I also recommended eventually transitioning the patient to a pressure support of 10 and CPAP. One hour later, patient seemed to tolerate pressure support and CPAP quite well, then proceeded to extubating the patient to nasal cannula. Patient was reevaluated today on 09/07/2020, patient was extubated yesterday, he is on 2 L nasal cannula, and his O2 saturations in the 90s, patient has no shortness of breath no cough no wheezing, however he has some vague abdominal discomfort. That is being addressed by general surgery on the case. Patient had a PICC line placed yesterday, and the plan is to start patient on TPN and he will be not be orally fed for quite some time as per surgery on the case. CBC is relatively normal today hemoglobin is down to 9.3. Electrodes are normal renal profile is normal liver enzymes remain elevated. Objective - Vital Signs Vital signs: Vital Signs Temp 98.9 F 09/07/20 08:00 Pulse 104 H 09/07/20 11:00 Resp 15 09/07/20 11:00 BP 100/69 09/07/20 11:00 Pulse Ox 98 09/07/20 11:00 Intake & Output 09/06/20 09/07/20 09/07/20 18:59 06:59 18:59 Intake Total 1560 2040 130 Output Total 265 870 45 Balance 1295 1170 85 Weight 79.2 kg Intake: IV 1560 1560 130 Sodium Chloride 0.9% 1, 1560 1560 130 000 ml @ 130 mls/hr IV . Q7H42M [facility] Rx#:[id number] Oral 480 Output: Drainage 160 Right Abdomen 160 Urine 265 710 45 Other: Voiding Method Indwelling Catheter Indwelling Catheter Indwelling Catheter - Exam Physical Exam: Revealed a 70-year-old male in no distress. On 2 L nasal cannula. Head: Atraumatic, normocephalic. T ENT: PERRLA, EOMI, no neck masses, no thyromegaly, moist mucous membranes. Chest: [Symmetrical chest expansion, diminished breath sounds at the bases no crackles or rhonchi or wheezes.. Cardiac Exam: [Normal S1 and S2, no S3 gallop, no murmur.] Abdomen: [ surgical, Soft, nontender, no megaly, no rebound, no guarding, no bowel sounds. Abdominal binder in place. Extremities: [No clubbing, no edema, no cyanosis.] Good pulses bilaterally. Musculoskeletal: No deformities. Neurological Exam: Alert and oriented 3 focal deficits. Psychiatric: Normal mood affect and normal mental status examination. Skin: No rashes - Labs CBC & Chem 7: 09/07/20 03:51 09/07/20 03:51 Labs: Abnormal Lab Results - Last 24 Hours (Table) 09/06/20 09/07/20 09/07/20 Range/Units 11:35 03:51 03:51 WBC 15.2 H (3.8-10.6) k/uL RBC 3.05 L (4.30-5.90) m/uL Hgb 9.3 L D (13.0-17.5) gm/dL Hct 28.4 L (39.0-53.0) % RDW 16.2 H (11.5-15.5) % Neutrophils # 13.4 H (1.3-7.7) k/uL Lymphocytes # 0.8 L (1.0-4.8) k/uL Sodium 136 L (137-145) mmol/L Chloride 108 H (98-107) mmol/L Plasma Lactic Acid Tommy 2.2 H* (0.7-2.0) mmol/L Calcium 7.4 L (8.4-10.2) mg/dL Total Bilirubin 1.4 H (0.2-1.3) mg/dL AST 319 H (17-59) U/L ALT 133 H (4-49) U/L Alkaline Phosphatase 1117 H (38-126) U/L Total Protein 4.8 L (6.3-8.2) g/dL Albumin 2.3 L (3.5-5.0) g/dL Microbiology - Last 24 Hours (Table) 09/05/20 18:13 Blood Culture - Preliminary Blood No Growth after 24 hours Assessment and Plan Assessment: Impression: Perforated gastric ulcer, status post gastric ulcer. And biopsy of multiple liver lesions highly suspicious for metastatic disease to the liver. Postoperative day #2 Acute surgical abdomen on presentation requiring exploratory laparotomy, repair of a perforated gastric ulcer and requiring biopsy of liver lesions. History of seizure disorder, patient is normally on Keppra. Possible history of alcoholism. Suspect underlying COPD based on his chest x-ray. Presently in active. Elevated liver enzymes most likely secondary to metastatic disease to the liver. Recommendation: Patient was extubated yesterday, and he tolerated the extubation well. Recommend incentive spirometry. Recommend early ambulation. Recommend TPN. Continue to monitor for alcohol withdrawal. GI and DVT prophylaxis. Discontinue unnecessary catheters Transfer patient to a medical surgical floor today. We'll continue to follow Time with Patient: Less than 30
[2020-09-07] MEDS: IPRATROPIUM-ALBUTEROL 3 ML NEB INHALATION PRN (15:23)
[2020-09-07] MEDS: HYDROmorphone 1 MG/ML 1 ML SYRINGE IVP PRN (15:35)
[2020-09-07] MEDS: LORazepam 2 MG/ML INJ IV PRN (19:54)
[2020-09-08] MEDS: metroNIDAZOLE-NS PMX 500 MG in SALINE 1 100ML.BAG IVPB SCH ×4 (00:04→23:54)
[2020-09-08] MEDS: HEPARIN SODIUM,PORCINE/PF 5,000 UNIT/0.5 ML SYRINGE SQ SCH ×4 (00:04→22:06)
[2020-09-08] MEDS: HYDROmorphone 1 MG/ML 1 ML SYRINGE IVP PRN ×3 (03:47→19:57)
[2020-09-08] MEDS: PIPERACILLIN-TAZOBACTAM 3.375 GM in SODIUM CHLORIDE 0.9% 100 ML IVPB SCH ×3 (03:59→19:46)
--- NOTE | 2020-09-08 07:18 | XR ---
EXAMINATION TYPE: XR chest 1V portable DATE OF EXAM: 09/08/2020 COMPARISON: 09/07/2020 HISTORY: Shortness of breath TECHNIQUE: Single frontal view of the chest is obtained. FINDINGS: NG tube and PICC line stable. Bilateral granulomatous disease noted and there is hyperinfl ation. Heart size normal. Atherosclerotic change aorta. No pneumothorax or consolidation. Chronic rib deformities on the right. Sclerotic density along the right humerus. Remote trauma left clavicle. Th ere is left lower lobe infiltrate. Metallic density overlying the right scapula could been the basis of chronic foreign body. IMPRESSION: Stable changes of COPD and chronic granulomatous disease. Interval development of left l ower lobe infiltrate.
[2020-09-08] MEDS: THIAMINE 100 MG TAB PO SCH ×2 (08:31→17:42)
[2020-09-08] MEDS: PANTOPRAZOLE 40 MG/10 ML VIAL IV SCH ×2 (08:31→20:05)
[2020-09-08] MEDS: SODIUM CHLORIDE 0.9% 1,000 ML IV SCH ×3 (09:35→23:56)
[2020-09-08] MEDS: FLUCONAZOLE IN NACL,ISO-OSM 100 MG in SALINE 1 50ML.BAG IVPB SCH (09:57)
--- NOTE | 2020-09-08 11:34 | P.PN ---
Subjective Progress Note Date: 09/08/20 Principal diagnosis: Perforated gastric ulcer Patient was transferred out of the ICU. Says his pain is about the same. Still feels bloated. NG output mostly clear in color CHAD drain similar appearance mostly serosanguineous. He is afebrile. No tachycardia. Objective - Vital Signs Vital signs: Vital Signs Temp 98.1 F 09/08/20 04:06 Pulse 74 09/08/20 04:06 Resp 16 09/08/20 04:06 BP 118/78 09/08/20 04:06 Pulse Ox 98 09/08/20 04:06 Intake & Output 09/07/20 09/08/20 09/08/20 18:59 06:59 18:59 Intake Total 130 Output Total 915 390 Balance -785 -390 Intake: IV 130 Sodium Chloride 0.9% 1, 130 000 ml @ 130 mls/hr IV . Q7H42M [facility], [facility] Rx#:[id number] Output: Gastric Drainage 450 Drainage 120 90 Right Abdomen 120 90 Urine 345 300 Uretheral (Guajardo) 300 Other: Voiding Method Indwelling Catheter Indwelling Catheter - Exam Abdomen: Soft, mild distention, mild tenderness, dressing clean and dry - Labs CBC & Chem 7: 09/07/20 03:51 09/07/20 03:51 Labs: Microbiology - Last 24 Hours (Table) 09/05/20 18:13 Blood Culture - Preliminary Blood No Growth after 48 hours Assessment and Plan (1) Free intraperitoneal air Narrative/Plan: Continue nothing by mouth. Decrease the amount of ice chips and water. Await pathology findings tomorrow hopefully. We'll consult oncology. Current Visit: Yes Status: Acute Code(s): K66.8 - OTHER SPECIFIED DISORDERS OF PERITONEUM SNOMED Code(s): 09167679
[2020-09-08] MEDS: IPRATROPIUM-ALBUTEROL 3 ML NEB INHALATION PRN ×3 (12:56→21:48)
--- NOTE | 2020-09-08 13:04 | P.PN ---
Subjective Progress Note Date: 09/07/20 Principal diagnosis: Perforated gastric ulcer/mass; status post repair Multiple liver lesions 70-year-old male with history of seizure disorder, coronary artery disease and previous [place], history of alcohol withdrawal seizures, patient is maintained on Keppra. Patient presented to the hospital with acute onset of abdominal pain described the pain in the upper abdomen started the morning he presented to the hospital. Pain has become very severe, described it as 10 out of 10. Patient had no previous history of peptic ulcer disease. CT of the abdomen and pelvis and chest x-ray showed no pneumoperitoneum. Patient was also noted to have multiple liver lesions consistent with metastatic disease to the liver. Patient was seen by Dr. bowers on consultation and he was taken straight from the ER to the OR, underwent exploratory laparotomy, repair of perforated gastric ulcer and underwent biopsy of liver mass. Postoperatively, patient was intubated and mechanically ventilated and was sent to the ICU Patient was successfully extubated this morning and is maintaining O2 saturation above 95% on 4 L 09/07/2020 patient is seen and evaluated on medical floor; was extubated yesterday, he is on 2 L nasal cannula, and his O2 saturations in the 90s, patient has no shortness of breath no cough no wheezing, however he has some vague abdominal discomfort. Patient had a PICC line placed yesterday, and the plan is to start patient on TPN and he will be not be orally fed for quite some time as per surgery on the case. CBC is relatively normal today hemoglobin is down to 9.3. Electrodes are normal renal profile is normal liver enzymes remain elevated. Patient will be monitored closely for alcohol withdrawal Objective - Vital Signs Vital signs: Vital Signs Temp 98.9 F 09/07/20 08:00 Pulse 84 09/07/20 09:00 Resp 13 09/07/20 09:00 BP 113/79 09/07/20 09:00 Pulse Ox 98 09/07/20 09:00 Intake & Output 09/06/20 09/07/20 09/07/20 18:59 06:59 18:59 Intake Total 1560 2040 130 Output Total 265 870 45 Balance 1295 1170 85 Weight 79.2 kg Intake: IV 1560 1560 130 Sodium Chloride 0.9% 1, 1560 1560 130 000 ml @ 130 mls/hr IV . Q7H42M [facility] Rx#:[id number] Oral 480 Output: Drainage 160 Right Abdomen 160 Urine 265 710 45 Other: Voiding Method Indwelling Catheter Indwelling Catheter Indwelling Catheter - Exam Physical Exam: Revealed a 70-year-old male in no distress. On 2 L nasal cannula. Head: Atraumatic, normocephalic. T ENT: PERRLA, EOMI, no neck masses, no thyromegaly, moist mucous membranes. Chest: [Symmetrical chest expansion, diminished breath sounds at the bases no crackles or rhonchi or wheezes.. Cardiac Exam: [Normal S1 and S2, no S3 gallop, no murmur.] Abdomen: [ surgical, Soft, nontender, no megaly, no rebound, no guarding, no bowel sounds. Abdominal binder in place. Extremities: [No clubbing, no edema, no cyanosis.] Good pulses bilaterally. Musculoskeletal: No deformities. Neurological Exam: Alert and oriented 3 focal deficits. Psychiatric: Normal mood affect and normal mental status examination. Skin: No rashes - Labs CBC & Chem 7: 09/07/20 03:51 09/07/20 03:51 Labs: Abnormal Lab Results - Last 24 Hours (Table) 09/06/20 09/07/20 09/07/20 Range/Units 11:35 03:51 03:51 WBC 15.2 H (3.8-10.6) k/uL RBC 3.05 L (4.30-5.90) m/uL Hgb 9.3 L D (13.0-17.5) gm/dL Hct 28.4 L (39.0-53.0) % RDW 16.2 H (11.5-15.5) % Neutrophils # 13.4 H (1.3-7.7) k/uL Lymphocytes # 0.8 L (1.0-4.8) k/uL Sodium 136 L (137-145) mmol/L Chloride 108 H (98-107) mmol/L Plasma Lactic Acid Tommy 2.2 H* (0.7-2.0) mmol/L Calcium 7.4 L (8.4-10.2) mg/dL Total Bilirubin 1.4 H (0.2-1.3) mg/dL AST 319 H (17-59) U/L ALT 133 H (4-49) U/L Alkaline Phosphatase 1117 H (38-126) U/L Total Protein 4.8 L (6.3-8.2) g/dL Albumin 2.3 L (3.5-5.0) g/dL Microbiology - Last 24 Hours (Table) 09/05/20 18:13 Blood Culture - Preliminary Blood No Growth after 24 hours Assessment and Plan Assessment: 1. 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 Multiple liver lesions; suspicious for metastatic disease; liver enzymes are elevated; patient underwent biopsy of liver lesions; results are pending; furt her recommendations after results are available with possible oncology consultation 3. Seizure disorder; we will resume home dose of Keppra 1500 mg twice a day via NG tube 4. History of alcoholism - Patient has since placed on Cipro protocol with Ativan for potential alcohol withdrawal; continue with thiamine and folic acid 5. COPD; not in exacerbation; patient remains on DuoNeb nebulizer treatments 4 times a day when necessary DVT prophylaxis; SCDs/subcu heparin CODE STATUS; DO NOT RESUSCITATE
--- NOTE | 2020-09-08 13:07 | P.PN ---
Subjective Progress Note Date: 09/08/20 Principal diagnosis: Perforated gastric ulcer/mass; status post repair Multiple liver lesions 70-year-old male with history of seizure disorder, coronary artery disease and previous [place], history of alcohol withdrawal seizures, patient is maintained on Keppra. Patient presented to the hospital with acute onset of abdominal pain described the pain in the upper abdomen started the morning he presented to the hospital. Pain has become very severe, described it as 10 out of 10. Patient had no previous history of peptic ulcer disease. CT of the abdomen and pelvis and chest x-ray showed no pneumoperitoneum. Patient was also noted to have multiple liver lesions consistent with metastatic disease to the liver. Patient was seen by Dr. bowers on consultation and he was taken straight from the ER to the OR, underwent exploratory laparotomy, repair of perforated gastric ulcer and underwent biopsy of liver mass. Postoperatively, patient was intubated and mechanically ventilated and was sent to the ICU Patient was successfully extubated this morning and is maintaining O2 saturation above 95% on 4 L 09/07/2020 patient is seen and evaluated on medical floor; was extubated yesterday, he is on 2 L nasal cannula, and his O2 saturations in the 90s, patient has no shortness of breath no cough no wheezing, however he has some vague abdominal discomfort. Patient had a PICC line placed yesterday, and the plan is to start patient on TPN and he will be not be orally fed for quite some time as per surgery on the case. CBC is relatively normal today hemoglobin is down to 9.3. Electrodes are normal renal profile is normal liver enzymes remain elevated. Patient will be monitored closely for alcohol withdrawal 09/08/2020 Patient is seen and evaluated on 5 N.; transferred out of ICU yesterday; continues to report feeling bloated; patient has NG tube in place and continues to have clear output Vital signs are reviewed and reveal temperature of 98.1, pulse 74, respirations 16 and blood pressure of 118/78 Patient remains nothing by mouth; surgery recommending to decrease amount of ice chips and water Pathology report is pending; plan is to consult oncology for further evaluation once biopsy is available Objective - Vital Signs Vital signs: Vital Signs Temp 97.7 F 09/08/20 12:56 Pulse 84 09/08/20 12:58 Resp 16 09/08/20 12:56 BP 120/78 09/08/20 12:56 Pulse Ox 96 09/08/20 12:56 Intake & Output 09/07/20 09/08/20 09/08/20 18:59 06:59 18:59 Intake Total 130 Output Total 915 390 Balance -785 -390 Intake: IV 130 Sodium Chloride 0.9% 1, 130 000 ml @ 130 mls/hr IV . Q7H42M [facility] Rx#:[id number] Output: Gastric Drainage 450 Drainage 120 90 Right Abdomen 120 90 Urine 345 300 Uretheral (Guajardo) 300 Other: Voiding Method Indwelling Catheter Indwelling Catheter - Exam Physical Exam: Revealed a 70-year-old male in no distress. On 2 L nasal cannula. Head: Atraumatic, normocephalic. T ENT: PERRLA, EOMI, no neck masses, no thyromegaly, moist mucous membranes. Chest: [Symmetrical chest expansion, diminished breath sounds at the bases no crackles or rhonchi or wheezes.. Cardiac Exam: [Normal S1 and S2, no S3 gallop, no murmur.] Abdomen: [ surgical, Soft, nontender, no megaly, no rebound, no guarding, no bowel sounds. Abdominal binder in place. Extremities: [No clubbing, no edema, no cyanosis.] Good pulses bilaterally. Musculoskeletal: No deformities. Neurological Exam: Alert and oriented 3 focal deficits. Psychiatric: Normal mood affect and normal mental status examination. Skin: No rashes - Labs CBC & Chem 7: 09/07/20 03:51 09/07/20 03:51 Labs: Microbiology - Last 24 Hours (Table) 09/05/20 18:13 Blood Culture - Preliminary Blood No Growth after 48 hours Assessment and Plan Assessment: 1. Perforated gastric ulcer; patient is status post repair; POD #1 - Patient has been successfully extubated but remains in ICU; remains on IV flu ids; remains on IV antibiotics in form of Zosyn and metronidazole - rn plasma center service following and recommending nutritional support after discussion with primary service - Continue incentive spirometry every hour while awake 2. Multiple liver lesions; suspicious for metastatic disease; liver enzymes are elevated; patient underwent biopsy of liver lesions; results are pending; further recommendations after results are available with possible oncology consultation 3. Seizure disorder; we will resume home dose of Keppra 1500 mg twice a day via NG tube 4. History of alcoholism - Patient has since placed on Cipro protocol with Ativan for potential alcohol withdrawal; continue with thiamine and folic acid 5. COPD; not in exacerbation; patient remains on DuoNeb nebulizer treatments 4 times a day when necessary DVT prophylaxis; SCDs/subcu heparin CODE STATUS; DO NOT RESUSCITATE
--- NOTE | 2020-09-08 14:10 | P.PN ---
Subjective Progress Note Date: 09/08/20 Principal diagnosis: Perforated gastric ulcer, status post gastric ulcer. And biopsy of multiple liver lesions highly suspicious for metastatic disease to the liver. This is a 70-year-old male with history of seizure disorder, coronary artery disease and previous [place], history of alcohol withdrawal seizures, patient is maintained on Keppra. Patient presented to the hospital with acute onset of abdominal pain described the pain in the upper abdomen started the morning he presented to the hospital. Pain has become very severe, described it as 10 out of 10. Patient had no previous history of peptic ulcer disease. CT of the abdomen and pelvis and chest x-ray showed no pneumoperitoneum. Patient was also noted to have multiple liver lesions consistent with metastatic disease to the liver. Patient was seen by Dr. bowers on consultation and he was taken straight from the ER to the OR, underwent exploratory laparotomy, repair of perforated gastric ulcer and underwent biopsy of liver mass. Postoperatively, patient was sent to the ICU last night, and I was asked to see him on consultation. Overnight, I manage his ventilator settings and I saw today, patient is on as sist control rate of 12 tidal volume is 500 FiO2 40% and PEEP of 5 ABG showed a pO2 of 108 pCO2 of 35 pH of 7.38. Patient is on propofol at 55 mcg/kg/m, and his IV fluid is at 13 0 mL per hour. A shunt is not requiring any pressors, however his blood pressure is marginal and I recommended a bolus of 1 L of saline to be given. Chest x-ray was reviewed, showed minimal bibasilar atelectasis. Doubt pneumonia. Evaluated his labs, and I recommended holding propofol, I also recommended eventually transitioning the patient to a pressure support of 10 and CPAP. One hour later, patient seemed to tolerate pressure support and CPAP quite well, then proceeded to extubating the patient to nasal cannula. Patient was reevaluated today on 09/07/2020, patient was extubated yesterday, he is on 2 L nasal cannula, and his O2 saturations in the 90s, patient has no shortness of breath no cough no wheezing, however he has some vague abdominal discomfort. That is being addressed by general surgery on the case. Patient had a PICC line placed yesterday, and the plan is to start patient on TPN and he will be not be orally fed for quite some time as per surgery on the case. CBC is relatively normal today hemoglobin is down to 9.3. Electrodes are normal renal profile is normal liver enzymes remain elevated. The patient is seen today in 09/08/2020 in follow-up on the regular medical floor. He was transferred out of the ICU yesterday. He is currently resting fairly comfortably in bed. Awake and alert in no acute distress. Still having some abdominal discomfort from surgery and some complaints of testicular pain. No worsening shortness of breath, cough or congestion. He is maintaining O2 saturations in the 90s on room air. He is working well with the incentive spirometer. Chest x-ray reveals stable changes of COPD and chronic granulomatous disease. Blood cultures reveal no growth. Objective - Vital Signs Vital signs: Vital Signs Temp 97.7 F 09/08/20 12:56 Pulse 84 09/08/20 13:08 Resp 16 09/08/20 12:56 BP 120/78 09/08/20 12:56 Pulse Ox 96 09/08/20 12:56 Intake & Output 09/07/20 09/08/20 09/08/20 18:59 06:59 18:59 Intake Total 130 Output Total 915 390 Balance -785 -390 Intake: IV 130 Sodium Chloride 0.9% 1, 130 000 ml @ 130 mls/hr IV . Q7H42M [facility] Rx#:[id number] Output: Gastric Drainage 450 Drainage 120 90 Right Abdomen 120 90 Urine 345 300 Uretheral (Guajardo) 300 Other: Voiding Method Indwelling Catheter Indwelling Catheter - Exam GENERAL EXAM: Alert, pleasant 70-year-old gentleman, on room air, fairly comfortable in no apparent distress. HEAD: Normocephalic. EYES: Normal reaction of pupils, equal size. NOSE: Clear with pink turbinates. THROAT: No erythema or exudates. NECK: No masses, no JVD. CHEST: No chest wall deformity. LUNGS: Equal air entry with no crackles, wheeze, rhonchi or dullness. CVS: S1 and S2 normal with no audible murmur, regular rhythm. ABDOMEN: Abdominal binder in place. No hepatosplenomegaly, normal bowel sounds, no guarding or rigidity. SPINE: No scoliosis or deformity SKIN: No rashes CENTRAL NERVOUS SYSTEM: No focal deficits, tone is normal in all 4 extremities. EXTREMITIES: There is no peripheral edema. No clubbing, no cyanosis. Peripheral pulses are intact. - Labs CBC & Chem 7: 09/07/20 03:51 09/07/20 03:51 Labs: Microbiology - Last 24 Hours (Table) 09/05/20 18:13 Blood Culture - Preliminary Blood No Growth after 48 hours Assessment and Plan Assessment: 1 Perforated gastric ulcer, status post gastric ulcer. And biopsy of multiple liver lesions highly suspicious for metastatic disease to the liver. Postoperative day #3 2 Acute surgical abdomen on presentation requiring exploratory laparotomy, repair of a perforated gastric ulcer and requiring biopsy of liver lesions. 3 History of seizure disorder, patient is normally on Keppra. 4 Possible history of alcoholism. 5 Suspect underlying COPD based on his chest x-ray. Presently in active. 6 Elevated liver enzymes most likely secondary to metastatic disease to the liver. Plan: The patient was seen and evaluated by Dr. Ani Beebe from the pulmonary standpoint On room air, working well with his incentive spirometer Increase his activity as tolerated We will see him on an as-needed basis. I, the cosigning physician, performed a history & physical examination of the patient. Lungs sounds are clear. Maintaining good O2 saturations in the 90s on room air. I discussed the assessment and plan of care with my nurse practitioner, Shu Cruz. I attest to the above note as dictated by her.
--- NOTE | 2020-09-08 20:21 | CONS ---
CONSULTATION DATE OF SERVICE: September 08, 2020. REASON FOR CONSULTATION: Liver lesion CHIEF COMPLAINT: Nausea and abdominal pain. HISTORY OF PRESENT ILLNESS: Isreal is a very pleasant 70 years old gentleman who presented to the emergency department on September 05 with abdominal pain, and seizure. He is known to have a history of seizures. In the emergency department, he had a CT scan of the chest and there was no recurrent seizure while he was in the emergency department or during his hospital stay. However, as part of his evaluation, admitted with abdominal pain and he ended up having a CT scan of the abdomen and pelvis which revealed marked pneumoperitoneum with mild to moderate peritoneal fluid throughout the abdomen and pelvis and evidence of hepatomegaly with innumerable liver lesions. The patient was taken to the operating room by Dr. Schwartz on 09/05/2020, he was found to have perforated gastric ulcer with multiple masses in the liver. He underwent repair of perforated gastric ulcer and a biopsy of the liver mass. The patient was successfully intubated afterward and he is currently on the oncology floor and he has an NG tube. Upon questioning the patient, he stated he had an issue with nausea and vomiting for at least a couple months and has lost about 30 pounds. Also, he admitted of having black dark stool over the last couple months, but he never sought medical attention. PAST MEDICAL HISTORY: He has a history of myocardial infarction, pneumonia, seizure disorder. PAST SURGICAL HISTORY: Negative. SOCIAL HISTORY: He is a smoker. He is a drinker, but he said that he cut down and now he drinks about 4 beers a day. FAMILY HISTORY: Past family history is positive for diabetes mellitus and his father was an alcoholic and his mother has diabetes. REVIEW OF SYSTEMS: As stated above in the history of present illness, otherwise negative. CURRENT MEDICATION: His home medications include: Aspirin 81 mg daily, and Keppra 1500 mg b.i.d. PHYSICAL EXAMINATION: He is alert, oriented x3. At this point in time, he does not appear to be in distress. His vital signs are temperature 97.7, afebrile, pulse 85 and regular, respirations 16, blood pressure 120/78, pulse ox is 96 percent on room air. HEENT: Normocephalic, atraumatic. NG tube is in place. NECK: Supple. CHEST: Equal expansion bilaterally. LUNGS: Clear to auscultation. HEART is regular rate and rhythm. ABDOMEN is distended with hypoactive bowel sounds. Generalized tenderness and he has evidence of hepatomegaly. EXTREMITIES: Reveal no edema. LYMPHATICS: No peripheral or cervical supraclavicular nodes. MUSCULOSKELETAL: Moving all extremities appropriately. No percussion tenderness detected over his spine or his sternum. LAB DATA: WBC of 15.2, hemoglobin 9.3, hematocrit 28.4, platelets are 242. Sodium 137, potassium 4.5, chloride 108, BUN is 20, creatinine 0.7. His total bilirubin is 1.4, AST 319, ALT 133, alkaline phosphatase is 1117. IMPRESSION: 1. Clinical and radiographic picture highly suggestive of malignancy, possibly gastric malignancy with diffuse liver metastases. 2. Perforated gastric ulcers for which he underwent surgery as stated above and liver biopsy was taken. 3. Significantly elevated liver enzymes related to his diffuse liver metastases. RECOMMENDATION: 1. Continue postoperative care at this point in time. 2. Continue DVT prophylaxis. 3. Based on his pathology report, further diagnostic and therapeutic decision will be made and based on his postoperative improvement in recovery, further decision will be made in regard to systemic treatment. If the liver biopsy is consistent with metastatic gastric carcinoma, then this will be sent for molecular studies to include HER-2/yassine HDR and MSI and PDL1 as well. The above was discussed with the patient. I have answered all his questions. Thank you very much for asking me to participate in the care of this nice gentleman. PATRICIA / EMELIN: [id number] /
[2020-09-08] MEDS: LORazepam 2 MG/ML INJ IV PRN (22:04)
[2020-09-09] MEDS: PIPERACILLIN-TAZOBACTAM 3.375 GM in SODIUM CHLORIDE 0.9% 100 ML IVPB SCH ×3 (02:58→20:53)
--- NOTE | 2020-09-09 03:00 | XR ---
EXAM: XR Chest, 1 View CLINICAL HISTORY: ITS.REASON XR Reason: check NG placement TECHNIQUE: Frontal view of the chest. COMPARISON: 09/08/20. FINDINGS: Feeding tube extends below the diaphragm, the tip below the field of view. Left PICC not visualized. Bibasilar infiltrates or atelectasis. Additional findings similar to prior. IMPRESSION: Feeding tube extends below the diaphragm, the tip below the field of view.
[2020-09-09] MEDS: HYDROmorphone 1 MG/ML 1 ML SYRINGE IVP PRN (05:31)
[2020-09-09 06:14] LABS: Anisocytosis Slight; Basophils % (A) 0 %; Eosinophils % (A) 0 %; HCT 28.2 % (39.0-53.0); HGB 8.8 gm/dL (13.0-17.5); Hypochromasia Slight; Lymphocytes # (A) 0.6 k/uL (1.0-4.8); Lymphocytes % (A) 6 %; MCH 29.6 pg (25.0-35.0); MCHC 31.2 g/dL (31.0-37.0); MCV 94.8 fL (80.0-100.0); Mean Platelet Volume 7.7; Monocytes # (A) 0.7 k/uL (0-1.0); Monocytes % (A) 7 %; Neutrophils # (A) 8.5 k/uL (1.3-7.7); Neutrophils % (A) 85 %; Platelet Count 237 k/uL (150-450); RBC 2.97 m/uL (4.30-5.90); RDW 16.3 % (11.5-15.5); WBC 9.9 k/uL (3.8-10.6)
[2020-09-09] MEDS: THIAMINE 100 MG TAB PO SCH ×2 (08:03→16:24)
[2020-09-09] MEDS: metroNIDAZOLE-NS PMX 500 MG in SALINE 1 100ML.BAG IVPB SCH ×3 (08:03→23:57)
[2020-09-09] MEDS: HEPARIN SODIUM,PORCINE/PF 5,000 UNIT/0.5 ML SYRINGE SQ SCH ×3 (08:04→23:59)
[2020-09-09] MEDS: PANTOPRAZOLE 40 MG/10 ML VIAL IV SCH ×2 (08:04→20:54)
[2020-09-09] MEDS: FLUCONAZOLE IN NACL,ISO-OSM 100 MG in SALINE 1 50ML.BAG IVPB SCH (09:11)
[2020-09-09] MEDS: SODIUM CHLORIDE 0.9% 1,000 ML IV SCH ×3 (09:14→23:59)
[2020-09-09 10:00] LABS: African American GFR (CKD) 118.9 (60.0-200.0); Anion Gap 8.6 mmol/L (4.00-12.00); BUN/Creat Ratio 38.33 Ratio (12.00-20.00); Calcium 7.4 mg/dL (8.7-10.3); Carbon Dioxide 23.4 mmol/L (21.6-31.8); Non-African American GFR(CKD) 102.6 (60.0-200.0); Potassium 4.1 mmol/L (3.5-5.5)
--- NOTE | 2020-09-09 11:46 | P.PN ---
<Carol Childress - Last Filed: 09/09/20 11:36> Subjective Progress Note Date: 09/09/20 CHIEF COMPLAINT: Perforated gastric ulcer HISTORY OF PRESENT ILLNESS: Patient is postop day #4 status post exploratory laparotomy, repair of perforated gastric ulcer and biopsy of liver mass. Patient was transferred out of the ICU over the weekend. He is currently lying in bed comfortably. But apparently during the evening patient became confused possibly after pain medication and Ativan was given. He pulled out his PICC line, NG tube and Guajardo catheter. NG tube and Guajardo catheter have been reinserted. Patient does report abdominal pain but it is controlled with pain medications. He states he is passing gas. Nursing staff reports no bowel movements. CHAD drain serosanguineous with 140 mL output today. NG tube output 1400 mL clearish in color. He is afebrile. White count has come down from 15.2- 9.9 hemoglobin is 8.8 liver biopsy pending. Patient seen by oncology service PHYSICAL EXAM: VITAL SIGNS: Reviewed. GENERAL: Well-developed in no acute distress. HEENT: No sclera icterus. Extraocular movements grossly intact. Moist buccal mucosa. Head is atraumatic, normocephalic. ABDOMEN: Soft. Mildly distended. Mild tenderness with palpation around incision site. Incisional dressing clean dry and intact. NEUROLOGIC: Alert and oriented. Cranial nerves II through XII grossly intact. ASSESSMENT: 1. Perforated gastric ulcer status post exploratory laparotomy, repair of perforated gastric ulcer and biopsy of liver mass PLAN: -liver pathology result pending -Keep patient nothing by mouth -Continue NG tube for decompression -Continue antibiotics -Consult PT OT -Encouraged patient to use incentive spirometer -Continue GI and DVT prophylaxis Physician Survey Cad Technician note has been reviewed by physician. Signing provider agrees with the documented findings, assessment, and plan of care. Objective - Vital Signs Vital signs: Vital Signs Temp 97.7 F 09/09/20 05:00 Pulse 69 09/09/20 05:00 Resp 16 09/09/20 05:00 BP 114/77 09/09/20 05:00 Pulse Ox 95 09/09/20 05:00 Intake & Output 09/08/20 09/09/20 09/09/20 18:59 06:59 18:59 Intake Total 1300 1600 Output Total 1265 3010 220 Balance 35 -1410 -220 Intake: IV 1300 1500 Piperacillin-Tazobactam 3 200 .375 gm In Sodium Chloride 0.9% 100 ml @ 25 mls/hr IVPB Q8H [facility] Rx#: [id number] Sodium Chloride 0.9% 1, 1300 1300 000 ml @ 130 mls/hr IV . Q7H42M [facility] Rx#:[id number] Intake, IV Titration 100 Amount metroNIDAZOLE-NS PMX 500 100 mg In Saline 1 100ml.bag @ 100 mls/hr IVPB Q8HR [facility] Rx#:[id number] Output: Gastric Drainage 1700 Drainage 90 310 220 Right Abdomen 90 310 220 Urine 500 1000 Emesis 675 Other: Voiding Method Indwelling Catheter Indwelling Catheter # Bowel Movements 1 1 - Labs CBC & Chem 7: 09/09/20 05:18 09/09/20 05:18 Labs: Abnormal Lab Results - Last 24 Hours (Table) 09/09/20 09/09/20 Range/Units 05:18 05:18 RBC 2.97 L (4.30-5.90) m/uL Hgb 8.8 L (13.0-17.5) gm/dL Hct 28.2 L (39.0-53.0) % RDW 16.3 H (11.5-15.5) % Neutrophils # 8.5 H (1.3-7.7) k/uL Lymphocytes # 0.6 L (1.0-4.8) k/uL Chloride 111 H (96-109) mmol/L BUN/Creatinine Ratio 38.33 H (12.00-20.00) Ratio Calcium 7.4 L (8.7-10.3) mg/dL Microbiology - Last 24 Hours (Table) 09/05/20 18:13 Blood Culture - Preliminary Blood No Growth after 72 hours <Vito Schwartz - Last Filed: 09/09/20 14:05> Subjective As above. Patient was confused and pulled out his PICC line and nasogastric tu be. Doing better today. Pain still present. Nasogastric tube with mostly serous with slightly bile tinged output. CHAD drain serosanguineous. White blood cell count is improved. Await final pathology. We'll obtain contrast study tomorrow to evaluate perforated ulcer site for leak. Objective - Vital Signs Vital signs: Vital Signs Temp 97.8 F 09/09/20 11:12 Pulse 90 09/09/20 12:06 Resp 16 09/09/20 12:06 BP 103/69 09/09/20 11:12 Pulse Ox 97 09/09/20 11:56 Intake & Output 09/08/20 09/09/20 09/09/20 18:59 06:59 18:59 Intake Total 1300 1600 Output Total 1265 3010 258 Balance 35 -1410 -258 Intake: IV 1300 1500 Piperacillin-Tazobactam 3 200 .375 gm In Sodium Chloride 0.9% 100 ml @ 25 mls/hr IVPB Q8H [facility] Rx#: [id number] Sodium Chloride 0.9% 1, 1300 1300 000 ml @ 130 mls/hr IV . Q7H42M [facility] Rx#:[id number] Intake, IV Titration 100 Amount metroNIDAZOLE-NS PMX 500 100 mg In Saline 1 100ml.bag @ 100 mls/hr IVPB Q8HR [facility] Rx#:[id number] Output: Gastric Drainage 1700 Drainage 90 310 258 Right Abdomen 90 310 258 Urine 500 1000 Emesis 675 Other: Voiding Method Indwelling Catheter Indwelling Catheter # Bowel Movements 1 1 - Labs CBC & Chem 7: 09/09/20 05:18 09/09/20 05:18 Labs: Abnormal Lab Results - Last 24 Hours (Table) 09/09/20 09/09/20 Range/Units 05:18 05:18 RBC 2.97 L (4.30-5.90) m/uL Hgb 8.8 L (13.0-17.5) gm/dL Hct 28.2 L (39.0-53.0) % RDW 16.3 H (11.5-15.5) % Neutrophils # 8.5 H (1.3-7.7) k/uL Lymphocytes # 0.6 L (1.0-4.8) k/uL Chloride 111 H (96-109) mmol/L BUN/Creatinine Ratio 38.33 H (12.00-20.00) Ratio Calcium 7.4 L (8.7-10.3) mg/dL Microbiology - Last 24 Hours (Table) 09/05/20 18:13 Blood Culture - Preliminary Blood No Growth after 72 hours Assessment and Plan (1) Free intraperitoneal air Current Visit: Yes Status: Acute Code(s): K66.8 - OTHER SPECIFIED DISORDERS OF PERITONEUM SNOMED Code(s): 19276871
[2020-09-09] MEDS: IPRATROPIUM-ALBUTEROL 3 ML NEB INHALATION PRN (11:55)
--- NOTE | 2020-09-09 14:21 | P.PN ---
Subjective Progress Note Date: 09/09/20 Perforated gastric ulcer/mass; status post repair Multiple liver lesions 70-year-old male with history of seizure disorder, coronary artery disease and previous [place], history of alcohol withdrawal seizures, patient is maintained on Keppra. Patient presented to the hospital with acute onset of abdominal pain described the pain in the upper abdomen started the morning he presented to the hospital. Pain has become very severe, described it as 10 out of 10. Patient had no previous history of peptic ulcer disease. CT of the abdomen and pelvis and chest x-ray showed no pneumoperitoneum. Patient was also noted to have multiple liver lesions consistent with metastatic disease to the liver. Patient was seen by Dr. bowers on consultation and he was taken straight from the ER to the OR, underwent exploratory laparotomy, repair of perforated gastric ulcer and underwent biopsy of liver mass. Postoperatively, patient was intubated and mechanically ventilated and was sent to the ICU Patient was successfully extubated this morning and is maintaining O2 saturation above 95% on 4 L 09/07/2020 patient is seen and evaluated on medical floor; was extubated yesterday, he is on 2 L nasal cannula, and his O2 saturations in the 90s, patient has no shortness of breath no cough no wheezing, however he has some vague abdominal discomfort. Patient had a PICC line placed yesterday, and the plan is to start patient on TPN and he will be not be orally fed for quite some time as per surgery on the case. CBC is relatively normal today hemoglobin is down to 9.3. Electrodes are normal renal profile is normal liver enzymes remain elevated. Patient will be monitored closely for alcohol withdrawal 09/08/2020 Patient is seen and evaluated on 5 N.; transferred out of ICU yesterday; continues to report feeling bloated; patient has NG tube in place and continues to have clear output Vital signs are reviewed and reveal temperature of 98.1, pulse 74, respirations 16 and blood pressure of 118/78 Patient remains nothing by mouth; surgery recommending to decrease amount of ice chips and water Pathology report is pending; plan is to consult oncology for further evaluation once biopsy is available 09/09/2020 Patient is seen this morning and per nursing staff patient was confused in the middle of the night and took out his NG tube, PICC line, and part of his Guajardo catheter and when talking with the patient he does not recall any of this happening. Following along closely with surgery as patient recently underwent exploratory laparotomy with repair of a perfect related gastric ulcer and was noted to have multiple liver lesions with biopsies obtained which are pending. Oncology consulted and following. Patient denies any chest pain or shortness of breath and continues to have abdominal discomfort. Patient denies bowel movement at this time but is reporting gas. Increased amount of serosanguineous drainage from the CHAD drain was also noted today. White blood count is 9.9, hemoglobin is 8.8, current sodium is 143 with a potassium of 4.1 and current creatinine is 0.6. Review of systems: Constitutional: No reports of fatigue, fever, or chills Cardiovascular: No reports of chest pain or palpitations Respiratory: No reports of shortness of breath or cough GI: Reports continued abdominal discomfort at the surgical site and is passing gas with no reports of bowel movements : No reports of dysuria or retention Neurovascular: Reports generalized weakness All medications have been reviewed Objective - Vital Signs Vital signs: Vital Signs Temp 97.8 F 09/09/20 11:12 Pulse 90 09/09/20 12:06 Resp 16 09/09/20 12:06 BP 103/69 09/09/20 11:12 Pulse Ox 97 09/09/20 11:56 Intake & Output 09/08/20 09/09/20 09/09/20 18:59 06:59 18:59 Intake Total 1300 1600 Output Total 1265 3010 258 Balance 35 -1410 -258 Intake: IV 1300 1500 Piperacillin-Tazobactam 3 200 .375 gm In Sodium Chloride 0.9% 100 ml @ 25 mls/hr IVPB Q8H [facility] Rx#: [id number] Sodium Chloride 0.9% 1, 1300 1300 000 ml @ 130 mls/hr IV . Q7H42M [facility] Rx#:[id number] Intake, IV Titration 100 Amount metroNIDAZOLE-NS PMX 500 100 mg In Saline 1 100ml.bag @ 100 mls/hr IVPB Q8HR [facility] Rx#:[id number] Output: Gastric Drainage 1700 Drainage 90 310 258 Right Abdomen 90 310 258 Urine 500 1000 Emesis 675 Other: Voiding Method Indwelling Catheter Indwelling Catheter # Bowel Movements 1 1 - Exam Physical Exam: Revealed a 70-year-old male in no distress. On 2 L nasal cannula. Head: Atraumatic, normocephalic. ENT: PERRLA, EOMI, no neck masses, no thyromegaly, moist mucous membranes. Chest: Symmetrical chest expansion, diminished breath sounds at the bases with no crackles or rhonchi or wheezes.. Cardiac Exam: S1, S2 are present Abdomen: Soft, mildly tender around the midline incision site with CHAD drain noted, sluggish bowel sounds, abdominal binder in place Extremities: No clubbing, no edema, no cyanosis. Good pulses bilaterally. Musculoskeletal: No deformities. Neurological Exam: Alert and oriented 3 focal deficits. Psychiatric: Normal mood affect and normal mental status examination. Skin: No rashes - Labs CBC & Chem 7: 09/09/20 05:18 09/09/20 05:18 Labs: Abnormal Lab Results - Last 24 Hours (Table) 09/09/20 09/09/20 Range/Units 05:18 05:18 RBC 2.97 L (4.30-5.90) m/uL Hgb 8.8 L (13.0-17.5) gm/dL Hct 28.2 L (39.0-53.0) % RDW 16.3 H (11.5-15.5) % Neutrophils # 8.5 H (1.3-7.7) k/uL Lymphocytes # 0.6 L (1.0-4.8) k/uL Chloride 111 H (96-109) mmol/L BUN/Creatinine Ratio 38.33 H (12.00-20.00) Ratio Calcium 7.4 L (8.7-10.3) mg/dL Microbiology - Last 24 Hours (Table) 09/05/20 18:13 Blood Culture - Preliminary Blood No Growth after 72 hours Assessment and Plan Assessment: Perforated gastric ulcer status post exploratory laparotomy with repair of the ulcer postop day #2 Multiple liver lesions: Suspicious for metastatic disease status post biopsy with pathology pending, oncology consulted and following Seizure disorder, continue with home medications of Keppra 1500 mg twice daily History of alcoholism, continue to monitor for any signs of alcohol withdrawal COPD, not in acute exacerbation DVT prophylaxis: Heparin subcutaneous GI prophylaxis: No Code Plan: Continue with current medications. Patient is maintained on Zosyn along with Flagyl and Diflucan to continue. Continue gentle IV hydration. Per nursing staff patient had an episode last night being confused and pulled out PICC line, Guajardo, NG tube which were replaced and continuous drainage noted. Patient is maintained on CIWA protocol for his EtOH history although this period of confusion occurred shortly after receiving Ativan and pain medications. Avoid Ativan if possible and continue with IV narcotics conservatively. Liver biopsy pending at this time. Will continue to follow along with surgery during hospitalization.
[2020-09-09 15:37] VITALS: BMI 22.4
[2020-09-09] MEDS: HYDROmorphone 0.5 MG/0.5 ML SYRINGE IVP PRN (16:25)
--- NOTE | 2020-09-09 16:37 | P.PN ---
Subjective Progress Note Date: 09/09/20 the patient was lying comfortably in bed at time of evaluation. NG tube in situ. Pain is controlled. He denies any nausea or vomiting. No evidence of resumption of bowel activity Objective - Vital Signs Vital signs: Vital Signs Temp 97.8 F 09/09/20 11:12 Pulse 90 09/09/20 12:06 Resp 16 09/09/20 12:06 BP 103/69 09/09/20 11:12 Pulse Ox 97 09/09/20 11:56 Intake & Output 09/08/20 09/09/20 09/09/20 18:59 06:59 18:59 Intake Total 1300 1600 Output Total 1265 3010 858 Balance 35 -1410 -858 Weight 79.2 kg Intake: IV 1300 1500 Piperacillin-Tazobactam 3 200 .375 gm In Sodium Chloride 0.9% 100 ml @ 25 mls/hr IVPB Q8H [facility] Rx#: [id number] Sodium Chloride 0.9% 1, 1300 1300 000 ml @ 130 mls/hr IV . Q7H42M [facility] Rx#:[id number] Intake, IV Titration 100 Amount metroNIDAZOLE-NS PMX 500 100 mg In Saline 1 100ml.bag @ 100 mls/hr IVPB Q8HR [facility] Rx#:[id number] Output: Gastric Drainage 1700 Drainage 90 310 358 Right Abdomen 90 310 358 Urine 500 1000 500 Emesis 675 Other: Voiding Method Indwelling Catheter Indwelling Catheter # Bowel Movements 1 1 - Constitutional General appearance: Present: no acute distress - EENT Eyes: Present: EOMI ENT: Present: hearing grossly normal, normal oropharynx - Respiratory Respiratory: bilateral: CTA - Cardiovascular Rhythm: regular Heart sounds: normal: S1, S2 - Gastrointestinal General gastrointestinal: Present: absent bowel sounds, soft - Integumentary Integumentary: Present: normal - Neurologic Neurologic: Present: CNII-XII intact - Musculoskeletal Musculoskeletal: Present: generalized weakness, strength equal bilaterally - Psychiatric Psychiatric: Present: A&O x's 3, appropriate affect - Labs CBC & Chem 7: 09/09/20 05:18 09/09/20 05:18 Labs: Abnormal Lab Results - Last 24 Hours (Table) 09/09/20 09/09/20 Range/Units 05:18 05:18 RBC 2.97 L (4.30-5.90) m/uL Hgb 8.8 L (13.0-17.5) gm/dL Hct 28.2 L (39.0-53.0) % RDW 16.3 H (11.5-15.5) % Neutrophils # 8.5 H (1.3-7.7) k/uL Lymphocytes # 0.6 L (1.0-4.8) k/uL Chloride 111 H (96-109) mmol/L BUN/Creatinine Ratio 38.33 H (12.00-20.00) Ratio Calcium 7.4 L (8.7-10.3) mg/dL Microbiology - Last 24 Hours (Table) 09/05/20 18:13 Blood Culture - Preliminary Blood No Growth after 72 hours Assessment and Plan (1) Liver lesion Narrative/Plan: patient had intraoperative biopsy of liver nodules that were palpated during surgery. Pathology is pending. It was again discussed with him that at this time the clinical impression is most consistent with gastric cancer with perforation, and liver metastasis. However we need final pathology for confirmation. - I further discussed with him that assuming that the above diagnosis is confirmed, the main stay of treatment would be systemic therapy with chemotherapy as the backbone usually. In the presence of metastatic disease cancer would not be considered operable or curable. Systemic therapy would normally be started only after adequate recovery from surgery, which is generally at least 3-4 weeks assuming no postop complications. Current Visit: Yes Status: Acute Code(s): K76.9 - LIVER DISEASE, UNSPECIFIED SNOMED Code(s): 839217457 (2) Perforated gastric ulcer Narrative/Plan: the patient currently. For the same. No obvious complications. Bowel activity has not resumed so far. Defer to the admitting service for postop management Current Visit: Yes Status: Acute Code(s): K25.5 - CHRONIC OR UNSPECIFIED GASTRIC ULCER WITH PERFORATION SNOMED Code(s): 5211781 (3) Anemia Narrative/Plan: possibilities include anemia due to blood loss, as well as anemia of metastatic malignancy. Check labs. Supplement in case of any deficiency state. Continue to monitor. Transfuse for hemoglobin less than 7 Current Visit: Yes Status: Acute Code(s): D64.9 - ANEMIA, UNSPECIFIED SNOMED Code(s): 114236296
[2020-09-10] MEDS: HYDROmorphone 0.5 MG/0.5 ML SYRINGE IVP PRN (00:12)
[2020-09-10] MEDS: PIPERACILLIN-TAZOBACTAM 3.375 GM in SODIUM CHLORIDE 0.9% 100 ML IVPB SCH ×3 (02:52→18:44)
[2020-09-10 06:48] LABS: Anisocytosis Slight; Basophils % (A) 0 %; Eosinophils % (A) 0 %; HCT 30.9 % (39.0-53.0); HGB 9.2 gm/dL (13.0-17.5); Hypochromasia Marked; Lymphocytes # (A) 0.8 k/uL (1.0-4.8); Lymphocytes % (A) 8 %; MCH 28.7 pg (25.0-35.0); MCHC 29.7 g/dL (31.0-37.0); MCV 96.6 fL (80.0-100.0); Mean Platelet Volume 8.1; Monocytes # (A) 0.9 k/uL (0-1.0); Monocytes % (A) 8 %; Neutrophils # (A) 8.4 k/uL (1.3-7.7); Neutrophils % (A) 82 %; Platelet Count 248 k/uL (150-450); RDW 16.3 % (11.5-15.5); WBC 10.2 k/uL (3.8-10.6)
[2020-09-10] MEDS: SODIUM CHLORIDE 0.9% 1,000 ML IV SCH ×2 (07:13→15:09)
[2020-09-10] MEDS: IPRATROPIUM-ALBUTEROL 3 ML NEB INHALATION PRN (07:29)
[2020-09-10] MEDS: metroNIDAZOLE-NS PMX 500 MG in SALINE 1 100ML.BAG IVPB SCH (07:42)
[2020-09-10] MEDS: HEPARIN SODIUM,PORCINE/PF 5,000 UNIT/0.5 ML SYRINGE SQ SCH ×3 (07:43→23:39)
[2020-09-10] MEDS: PANTOPRAZOLE 40 MG/10 ML VIAL IV SCH ×2 (07:44→21:05)
[2020-09-10] MEDS: THIAMINE 100 MG TAB PO SCH ×2 (07:44→15:23)
[2020-09-10] MEDS: FLUCONAZOLE IN NACL,ISO-OSM 100 MG in SALINE 1 50ML.BAG IVPB SCH (09:03)
--- NOTE | 2020-09-10 11:39 | P.PN ---
<Carol Childress - Last Filed: 09/10/20 11:29> Subjective Progress Note Date: 09/10/20 CHIEF COMPLAINT: Perforated gastric ulcer HISTORY OF PRESENT ILLNESS: Patient is postop day #4 status post exploratory laparotomy, repair of perforated gastric ulcer and biopsy of liver mass. Patient is lying in bed. He is complaining of abdominal pain. However, he is most complaining of feeling hungry. He is having bowel movements and passing gas. He denies any nausea. Afebrile. WBC is 10.2 hemoglobin 9.2 platelets 248 CHAD drain more serous in color with 270 mL output. There has been no output through NG tube this morning. PHYSICAL EXAM: VITAL SIGNS: Reviewed. GENERAL: Well-developed in no acute distress. HEENT: No sclera icterus. Extraocular movements grossly intact. Moist buccal mucosa. Head is atraumatic, normocephalic. ABDOMEN: Soft. distended. tenderness with palpation around incision site. Incision clean dry and intact NEUROLOGIC: Alert and oriented. Cranial nerves II through XII grossly intact. ASSESSMENT: 1. Perforated gastric ulcer status post exploratory laparotomy, repair of perforated gastric ulcer and biopsy of liver mass PLAN: -liver pathology result pending -Keep patient nothing by mouth -Continue NG tube for decompression -Continue antibiotics -Consult PT OT -Encouraged patient to use incentive spirometer -Continue GI and DVT prophylaxis Physician Cage Tender note has been reviewed by physician. Signing provider agrees with the documented findings, assessment, and plan of care. Objective - Vital Signs Vital signs: Vital Signs Temp 98.2 F 09/10/20 04:15 Pulse 89 09/10/20 08:00 Resp 16 09/10/20 08:00 BP 115/80 09/10/20 04:15 Pulse Ox 95 09/10/20 07:29 Intake & Output 09/09/20 09/10/20 09/10/20 18:59 06:59 18:59 Intake Total 1600 Output Total 938 840 140 Balance -938 760 -140 Weight 79.2 kg Intake: IV 1500 Piperacillin-Tazobactam 3 200 .375 gm In Sodium Chloride 0.9% 100 ml @ 25 mls/hr IVPB Q8H [facility] Rx#: [id number] Sodium Chloride 0.9% 1, 1300 000 ml @ 130 mls/hr IV . Q7H42M [facility] Rx#:[id number] Intake, IV Titration 100 Amount metroNIDAZOLE-NS PMX 500 100 mg In Saline 1 100ml.bag @ 100 mls/hr IVPB Q8HR [facility] Rx#:[id number] Output: Gastric Drainage 50 210 Drainage 388 130 140 Right Abdomen 388 130 140 Urine 500 500 Other: Voiding Method Indwelling Catheter Indwelling Catheter Indwelling Catheter # Bowel Movements 1 0 - Labs CBC & Chem 7: 09/10/20 06:09 09/09/20 05:18 Labs: Abnormal Lab Results - Last 24 Hours (Table) 09/10/20 Range/Units 06:09 RBC 3.20 L (4.30-5.90) m/uL Hgb 9.2 L (13.0-17.5) gm/dL Hct 30.9 L (39.0-53.0) % MCHC 29.7 L (31.0-37.0) g/dL RDW 16.3 H (11.5-15.5) % Neutrophils # 8.4 H (1.3-7.7) k/uL Lymphocytes # 0.8 L (1.0-4.8) k/uL Microbiology - Last 24 Hours (Table) 09/05/20 18:13 Blood Culture - Preliminary Blood No Growth after 96 hours <Vito Schwartz - Last Filed: 09/10/20 15:30> Subjective Patient without new complaints. Says his pain is improving. White blood cell count is normal. He is having bowel movements. Computed tomography scan with contrast was performed. No definite leak seen. We'll remove nasogastric tube and begin clear liquids. Patient at very high risk for re-leak at the ulcer site. Await final pathology. Objective - Vital Signs Vital signs: Vital Signs Temp 97.5 F L 09/10/20 11:43 Pulse 81 09/10/20 11:43 Resp 16 09/10/20 11:43 BP 117/80 09/10/20 11:43 Pulse Ox 96 09/10/20 11:43 Intake & Output 09/09/20 09/10/20 09/10/20 18:59 06:59 18:59 Intake Total 1600 Output Total 938 840 680 Balance -938 760 -680 Weight 79.2 kg Intake: IV 1500 Piperacillin-Tazobactam 3 200 .375 gm In Sodium Chloride 0.9% 100 ml @ 25 mls/hr IVPB Q8H [facility] Rx#: [id number] Sodium Chloride 0.9% 1, 1300 000 ml @ 130 mls/hr IV . Q7H42M [facility] Rx#:[id number] Intake, IV Titration 100 Amount metroNIDAZOLE-NS PMX 500 100 mg In Saline 1 100ml.bag @ 100 mls/hr IVPB Q8HR [facility] Rx#:[id number] Output: Gastric Drainage 50 210 Drainage 388 130 280 Right Abdomen 388 130 280 Urine 500 500 400 Other: Voiding Method Indwelling Catheter Indwelling Catheter Indwelling Catheter # Bowel Movements 1 0 - Labs CBC & Chem 7: 09/10/20 06:09 09/10/20 06:09 Labs: Abnormal Lab Results - Last 24 Hours (Table) 09/10/20 09/10/20 Range/Units 06:09 06:09 RBC 3.20 L (4.30-5.90) m/uL Hgb 9.2 L (13.0-17.5) gm/dL Hct 30.9 L (39.0-53.0) % MCHC 29.7 L (31.0-37.0) g/dL RDW 16.3 H (11.5-15.5) % Neutrophils # 8.4 H (1.3-7.7) k/uL Lymphocytes # 0.8 L (1.0-4.8) k/uL Chloride 114 H (96-109) mmol/L BUN/Creatinine Ratio 35.00 H (12.00-20.00) Ratio Calcium 7.3 L (8.7-10.3) mg/dL Iron 10 L (65-175) ug/dL TIBC 182 L (228-460) ug/dL % Saturation 5.49 L (15.00-50.00) Vitamin B12 3760.0 H (200.0-944.0) pg/mL Microbiology - Last 24 Hours (Table) 09/05/20 18:13 Blood Culture - Preliminary Blood No Growth after 96 hours Assessment and Plan (1) Free intraperitoneal air Current Visit: Yes Status: Acute Code(s): K66.8 - OTHER SPECIFIED DISORDERS OF PERITONEUM SNOMED Code(s): 82571171
[2020-09-10] MEDS: IOPAMIDOL CONTRAST (ORAL USE) VIAL PO PRN ×2 (12:41→12:45)
[2020-09-10 13:27] LABS: Ferritin 37.6 ng/mL (22.0-322.0)
--- NOTE | 2020-09-10 13:37 | CT ---
EXAMINATION TYPE: CT abdomen pelvis wo con DATE OF EXAM: 09/10/2020 HISTORY: abd pain, recent surgical repair for perforated gastric ulcer CT DLP: 564 mGycm. Automated Exposure Control for Dose Reduction was Utilized. TECHNIQUE: CT scan of the abdomen and pelvis is performed with limited oral but without IV contrast. COMPARISON: CT 5 days ago and older study 2019 FINDINGS: Within the limitations of a non-contrast study, the following observations are made. LUNG BASES: Calcified pleural plaques bilaterally are redemonstrated. New small to tiny bilateral ple ural effusions are partially imaged. Coronary artery calcification is again seen. LIVER/GB: Persistent hepatomegaly with redemonstration of multiple heterogeneous hypodense lesions of varying size and shape new from 2019 study. Gallbladder has hyperdense intraluminal material suggest ing vicarious excretion from recent CT with contrast. PANCREAS: No significant abnormality is seen. SPLEEN: Stable small splenule in splenic hilum. ADRENALS: Low-density thickening to left adrenal gland with subtle nodularity unchanged from 2019 ede dy favored benign. KIDNEYS: Mild to moderate nonspecific perinephric fluid and fat stranding bilaterally redemonstrated. Guajardo catheter decompresses bladder on current study. BOWEL: No nasogastric tube in stomach lumen. Stomach poorly distended with moderate gastric wall thic kening. No suspicious small or large bowel dilatation. Contrast reaches the transverse colon level. E valuation of distal bowel suboptimal due to lack of contrast at this level. There are diverticula in the left and sigmoid colon.. GENITAL ORGANS: No gross abnormality seen. LYMPH NODES: Persistent abnormal retroperitoneal lymph nodes. For reference there is 2.0 x 1.5 cm lef t periaortic lymph node axial image 64. OSSEOUS STRUCTURES: Transitional type vertebra lumbosacral junction. Mild to moderate spurring and di sc space narrowing L5-L6 level. OTHER: Improvement intraperitoneal fluid or ascites in the pelvis. Persistent but improved pneumoperi toneum. Worsening presacral retroperitoneal fluid axial image 91 on current study. New Moderate diffu se soft tissue anasarca area. New right mid abdominal percutaneous drainage catheter terminating in t he left upper quadrant. No significant focal fluid collection at this level. IMPRESSION: Persistent but improved pneumoperitoneum. Findings consistent with presumed desired fluid overload state now present as detailed above. More prominent ill-defined retroperitoneal fluid in th e pelvis presacral region noted. Hepatomegaly with hepatic metastatic disease and abnormal retroperit carrasco adenopathy in the abdomen redemonstrated.
[2020-09-10 13:53] LABS: % Iron Saturation 5.49 (15.00-50.00); African American GFR (CKD) 118.9 (60.0-200.0); Anion Gap 5.2 mmol/L (4.00-12.00); Calcium 7.3 mg/dL (8.7-10.3); Carbon Dioxide 24.8 mmol/L (21.6-31.8); Non-African American GFR(CKD) 102.6 (60.0-200.0); Potassium 3.8 mmol/L (3.5-5.5)
--- NOTE | 2020-09-10 14:31 | P.PN ---
Subjective Progress Note Date: 09/10/20 Principal diagnosis: Gastric Cancer Iron studies are low and IV iron ordered Objective - Vital Signs Vital signs: Vital Signs Temp 97.5 F L 09/10/20 11:43 Pulse 81 09/10/20 11:43 Resp 16 09/10/20 11:43 BP 117/80 09/10/20 11:43 Pulse Ox 96 09/10/20 11:43 Intake & Output 09/09/20 09/10/20 09/10/20 18:59 06:59 18:59 Intake Total 1600 Output Total 938 840 640 Balance -938 760 -640 Weight 79.2 kg Intake: IV 1500 Piperacillin-Tazobactam 3 200 .375 gm In Sodium Chloride 0.9% 100 ml @ 25 mls/hr IVPB Q8H [facility] Rx#: [id number] Sodium Chloride 0.9% 1, 1300 000 ml @ 130 mls/hr IV . Q7H42M [facility] Rx#:[id number] Intake, IV Titration 100 Amount metroNIDAZOLE-NS PMX 500 100 mg In Saline 1 100ml.bag @ 100 mls/hr IVPB Q8HR [facility] Rx#:[id number] Output: Gastric Drainage 50 210 Drainage 388 130 240 Right Abdomen 388 130 240 Urine 500 500 400 Other: Voiding Method Indwelling Catheter Indwelling Catheter Indwelling Catheter # Bowel Movements 1 0 - Exam - Constitutional General appearance: Present: no acute distress - EENT Eyes: Present: EOMI ENT: Present: hearing grossly normal, normal oropharynx - Respiratory Respiratory: bilateral: CTA - Cardiovascular Rhythm: regular Heart sounds: normal: S1, S2 - Gastrointestinal General gastrointestinal: Present: absent bowel sounds, soft - Integumentary Integumentary: Present: normal - Neurologic Neurologic: Present: CNII-XII intact - Musculoskeletal Musculoskeletal: Present: generalized weakness, strength equal bilaterally - Psychiatric Psychiatric: Present: A&O x's 3, appropriate affect - Labs CBC & Chem 7: 09/10/20 06:09 09/10/20 06:09 Labs: Abnormal Lab Results - Last 24 Hours (Table) 09/10/20 09/10/20 Range/Units 06:09 06:09 RBC 3.20 L (4.30-5.90) m/uL Hgb 9.2 L (13.0-17.5) gm/dL Hct 30.9 L (39.0-53.0) % MCHC 29.7 L (31.0-37.0) g/dL RDW 16.3 H (11.5-15.5) % Neutrophils # 8.4 H (1.3-7.7) k/uL Lymphocytes # 0.8 L (1.0-4.8) k/uL Chloride 114 H (96-109) mmol/L BUN/Creatinine Ratio 35.00 H (12.00-20.00) Ratio Calcium 7.3 L (8.7-10.3) mg/dL Iron 10 L (65-175) ug/dL TIBC 182 L (228-460) ug/dL % Saturation 5.49 L (15.00-50.00) Vitamin B12 3760.0 H (200.0-944.0) pg/mL Microbiology - Last 24 Hours (Table) 09/05/20 18:13 Blood Culture - Preliminary Blood No Growth after 96 hours Assessment and Plan Plan: Assessment and Plan Liver lesion Narrative/Plan: - Awaiting results of pathology from intraoperative biopsy of liver nodules that were palpated during surgery. - Time to heal is minimum 3-4 weeks assuming no postop complications prior to options for systemic treatment. Current Visit: Yes Status: Acute Code(s): K76.9 - LIVER DISEASE, UNSPECIFIED SNOMED Code(s): 377856779 Perforated gastric ulcer Narrative/Plan: - S/P intervention surgery Current Visit: Yes Status: Acute Code(s): K25.5 - CHRONIC OR UNSPECIFIED GASTRIC ULCER WITH PERFORATION SNOMED Code(s): 7089365 Anemia Narrative/Plan: - IV Iron x3 days - Transfuse for hemoglobin less than 7 Current Visit: Yes Status: Acute Code(s): D64.9 - ANEMIA, UNSPECIFIED SNOMED Code(s): 658616749 Physician attest: I have completed the full history and physical and agree with above dictation, dictated as a ascribe
[2020-09-10] MEDS: metroNIDAZOLE 500 MG TAB PEG/G-TUBE SCH ×2 (15:22→23:39)
--- NOTE | 2020-09-10 17:05 | P.PN ---
Subjective Progress Note Date: 09/10/20 Perforated gastric ulcer/mass; status post repair Multiple liver lesions 70-year-old male with history of seizure disorder, coronary artery disease and previous IA, history of alcohol withdrawal seizures, patient is maintained on Keppra. Patient presented to the hospital with acute onset of abdominal pain described the pain in the upper abdomen started the morning he presented to the hospital. Pain has become very severe, described it as 10 out of 10. Patient had no previous history of peptic ulcer disease. CT of the abdomen and pelvis and chest x-ray showed no pneumoperitoneum. Patient was also noted to have multiple liver lesions consistent with metastatic disease to the liver. Patient was seen by Dr. bowers on consultation and he was taken straight from the ER to the OR, underwent exploratory laparotomy, repair of perforated gastric ulcer and underwent biopsy of liver mass. Postoperatively, patient was intubated and mechanically ventilated and was sent to the ICU Patient was successfully extubated this morning and is maintaining O2 saturation above 95% on 4 L 09/07/2020 patient is seen and evaluated on medical floor; was extubated yesterday, he is on 2 L nasal cannula, and his O2 saturations in the 90s, patient has no shortness of breath no cough no wheezing, however he has some vague abdominal discomfort. Patient had a PICC line placed yesterday, and the plan is to start patient on TPN and he will be not be orally fed for quite some time as per surgery on the case. CBC is relatively normal today hemoglobin is down to 9.3. Electrodes are normal renal profile is normal liver enzymes remain elevated. Patient will be monitored closely for alcohol withdrawal 09/08/2020 Patient is seen and evaluated on 5 N.; transferred out of ICU yesterday; continues to report feeling bloated; patient has NG tube in place and continues to have clear output Vital signs are reviewed and reveal temperature of 98.1, pulse 74, respirations 16 and blood pressure of 118/78 Patient remains nothing by mouth; surgery recommending to decrease amount of ice chips and water Pathology report is pending; plan is to consult oncology for further evaluation once biopsy is available 09/09/2020 Patient is seen this morning and per nursing staff patient was confused in the middle of the night and took out his NG tube, PICC line, and part of his Guajardo catheter and when talking with the patient he does not recall any of this happening. Following along closely with surgery as patient recently underwent exploratory laparotomy with repair of a perfect related gastric ulcer and was noted to have multiple liver lesions with biopsies obtained which are pending. Oncology consulted and following. Patient denies any chest pain or shortness of breath and continues to have abdominal discomfort. Patient denies bowel movement at this time but is reporting gas. Increased amount of serosanguineous drainage from the CHAD drain was also noted today. White blood count is 9.9, hemoglobin is 8.8, current sodium is 143 with a potassium of 4.1 and current creatinine is 0.6. 09/10/2020 Patient is seen in follow-up this morning continues to have abdominal discomfort states it is somewhat improved. Bowel sounds noted and patient is passing gas but no reports of bowel movement at this time. This morning patient did have NG tube although was discontinued by surgery. Pathology report of the liver biopsy came back today and is positive for metastatic adenocarcinoma with enteric differentiation and oncology is following. White blood count today is 10.2 with hemoglobin of 9.2, current sodium is 144 with a potassium of 3.8 and creatinine is 0.6. Will continue gentle IV hydration decrease the dose to 50 mL per hour and repeat a.m. labs. Will continue to follow along with surgery during hospitalization. Review of systems: Constitutional: No reports of fatigue, fever, or chills Cardiovascular: No reports of chest pain or palpitations Respiratory: No reports of shortness of breath or cough GI: Reports continued abdominal discomfort at the surgical site and is passing gas with no reports of bowel movements : No reports of dysuria or retention Neurovascular: Reports generalized weakness All medications have been reviewed Objective - Vital Signs Vital signs: Vital Signs Temp 98.2 F 09/10/20 04:15 Pulse 90 09/10/20 07:40 Resp 16 09/10/20 07:40 BP 115/80 09/10/20 04:15 Pulse Ox 95 09/10/20 07:29 Intake & Output 09/09/20 09/10/20 09/10/20 18:59 06:59 18:59 Intake Total 1600 Output Total 938 840 40 Balance -938 760 -40 Weight 79.2 kg Intake: IV 1500 Piperacillin-Tazobactam 3 200 .375 gm In Sodium Chloride 0.9% 100 ml @ 25 mls/hr IVPB Q8H [facility] Rx#: [id number] Sodium Chloride 0.9% 1, 1300 000 ml @ 130 mls/hr IV . Q7H42M [facility] Rx#:[id number] Intake, IV Titration 100 Amount metroNIDAZOLE-NS PMX 500 100 mg In Saline 1 100ml.bag @ 100 mls/hr IVPB Q8HR [facility] Rx#:[id number] Output: Gastric Drainage 50 210 Drainage 388 130 40 Right Abdomen 388 130 40 Urine 500 500 Other: Voiding Method Indwelling Catheter Indwelling Catheter # Bowel Movements 1 0 - Exam Physical Exam: Revealed a 70-year-old male in no distress. On room air Head: Atraumatic, normocephalic. ENT: PERRLA, EOMI, no neck masses, no thyromegaly, moist mucous membranes. NG tube has been discontinued by surgery Chest: Symmetrical chest expansion, diminished breath sounds at the bases with no crackles or rhonchi or wheezes.. Cardiac Exam: S1, S2 are present Abdomen: Soft, mildly tender around the midline incision site with CHAD drain noted, bowel sounds noted, abdominal binder in place Extremities: No clubbing, no edema, no cyanosis. Good pulses bilaterally. Musculoskeletal: No deformities. Neurological Exam: Alert and oriented 3 focal deficits. Psychiatric: Normal mood affect and normal mental status examination. Skin: No rashes - Labs CBC & Chem 7: 09/10/20 06:09 09/10/20 06:09 Labs: Abnormal Lab Results - Last 24 Hours (Table) 09/09/20 09/10/20 Range/Units 05:18 06:09 RBC 3.20 L (4.30-5.90) m/uL Hgb 9.2 L (13.0-17.5) gm/dL Hct 30.9 L (39.0-53.0) % MCHC 29.7 L (31.0-37.0) g/dL RDW 16.3 H (11.5-15.5) % Neutrophils # 8.4 H (1.3-7.7) k/uL Lymphocytes # 0.8 L (1.0-4.8) k/uL Chloride 111 H (96-109) mmol/L BUN/Creatinine Ratio 38.33 H (12.00-20.00) Ratio Calcium 7.4 L (8.7-10.3) mg/dL Microbiology - Last 24 Hours (Table) 09/05/20 18:13 Blood Culture - Preliminary Blood No Growth after 96 hours Assessment and Plan Assessment: Perforated gastric ulcer status post exploratory laparotomy with repair of the ulcer postop day #3 Multiple liver lesions: Suspicious for metastatic disease status post biopsy , oncology consulted and following Metastatic adenocarcinoma with enteric differentiation as noted on liver biopsy Seizure disorder, continue with home medications of Keppra 1500 mg twice daily History of alcoholism, continue to monitor for any signs of alcohol withdrawal COPD, not in acute exacerbation DVT prophylaxis: Heparin subcutaneous GI prophylaxis: No Code Plan: Continue with current medications. Patient is maintained on Zosyn along with Flagyl and Diflucan to continue. Continue gentle IV hydration and dose has been decreased. NG tube discontinued by surgery. Patient is maintained on CIWA protocol for his EtOH history although this period of confusion occurred shortly after receiving Ativan and pain medications. Avoid Ativan if possible and cont inue with IV narcotics conservatively. Liver biopsy was positive for metastatic adenocarcinoma with enteric differentiation. Will continue to follow along with surgery during hospitalization.
[2020-09-10] MEDS: HYDROmorphone 1 MG/ML 1 ML SYRINGE IVP PRN (19:46)
[2020-09-10] MEDS: SODIUM FERRIC GLUCONAT-SUCROSE 125 MG in SODIUM CHLORIDE 0.9% 100 ML IVPB SCH (21:05)
[2020-09-11] MEDS: PIPERACILLIN-TAZOBACTAM 3.375 GM in SODIUM CHLORIDE 0.9% 100 ML IVPB SCH ×3 (01:54→19:37)
[2020-09-11] MEDS: SODIUM CHLORIDE 0.9% 1,000 ML IV SCH (04:00)
[2020-09-11] MEDS: metroNIDAZOLE 500 MG TAB PEG/G-TUBE SCH ×3 (07:55→23:17)
[2020-09-11] MEDS: FLUCONAZOLE 100 MG TAB PEG/G-TUBE SCH (07:55)
[2020-09-11] MEDS: HEPARIN SODIUM,PORCINE/PF 5,000 UNIT/0.5 ML SYRINGE SQ SCH ×3 (07:55→23:17)
[2020-09-11] MEDS: THIAMINE 100 MG TAB PO SCH ×2 (07:55→15:50)
[2020-09-11] MEDS: PANTOPRAZOLE 40 MG/10 ML VIAL IV SCH ×2 (07:56→19:43)
[2020-09-11] MEDS: SODIUM FERRIC GLUCONAT-SUCROSE 125 MG in SODIUM CHLORIDE 0.9% 100 ML IVPB SCH (08:16)
[2020-09-11 08:20] LABS: African American GFR (CKD) >90 (>60 ml/min/1.73 sqM); Anion Gap 8 mmol/L; Blood Urea Nitrogen 21 mg/dL (9-20); Calcium 7.4 mg/dL (8.4-10.2); Carbon Dioxide 21 mmol/L (22-30); Chloride 112 mmol/L (98-107); Glucose 78 mg/dL (74-99); Non-African American GFR(CKD) >90 (>60 ml/min/1.73 sqM); Sodium 141 mmol/L (137-145)
[2020-09-11 08:24] LABS: Anisocytosis Slight; Basophils % (A) 0 %; Eosinophils % (A) 0 %; HCT 33.9 % (39.0-53.0); Hypochromasia Marked; Lymphocytes # (A) 0.8 k/uL (1.0-4.8); Lymphocytes % (A) 6 %; MCH 28.6 pg (25.0-35.0); MCHC 29.6 g/dL (31.0-37.0); MCV 96.7 fL (80.0-100.0); Macrocytosis Slight; Mean Platelet Volume 8.8; Monocytes # (A) 0.9 k/uL (0-1.0); Monocytes % (A) 8 %; Neutrophils # (A) 10.3 k/uL (1.3-7.7); Neutrophils % (A) 84 %; Platelet Count 249 k/uL (150-450); RDW 16.6 % (11.5-15.5); WBC 12.2 k/uL (3.8-10.6)
--- NOTE | 2020-09-11 11:45 | P.PN ---
<Carol Childress - Last Filed: 09/11/20 11:40> Subjective Progress Note Date: 09/11/20 CHIEF COMPLAINT: Perforated gastric ulcer HISTORY OF PRESENT ILLNESS: Patient is postop day #5 status post exploratory laparotomy, repair of perforated gastric ulcer and biopsy of liver mass. Patient is lying in bed. Patient reports that he is hungry. He is passing gas and having bowel movements. He denies any nausea or vomiting. NG tube was removed yesterday. He has been started on clear liquid diet. CAT scan of the abdomen showed no evidence of leak at surgical site. Patient reports that his pain is controlled. Iron level was low oncology as ordered IV iron. Afebrile. The pathology from the liver biopsy shows metastatic adenocarcinoma. Oncology is following. WBC is up at 12.2 hemoglobin is 10.0 platelets 249 PHYSICAL EXAM: VITAL SIGNS: Reviewed. GENERAL: Well-developed in no acute distress. HEENT: No sclera icterus. Extraocular movements grossly intact. Moist buccal mucosa. Head is atraumatic, normocephalic. ABDOMEN: Soft. distended. tenderness with palpation around incision site. Incision clean dry and intact NEUROLOGIC: Alert and oriented. Cranial nerves II through XII grossly intact. ASSESSMENT: 1. Perforated gastric ulcer status post exploratory laparotomy, repair of perforated gastric ulcer and biopsy of liver mass PLAN: -Continue clear liquid diet -Continue antibiotics -Consult PT OT -Encouraged patient to use incentive spirometer -Continue GI and DVT prophylaxis Physician Splitting Machine Feeder note has been reviewed by physician. Signing provider agrees with the documented findings, assessment, and plan of care. Objective - Vital Signs Vital signs: Vital Signs Temp 98 F 09/11/20 04:24 Pulse 99 09/11/20 04:24 Resp 16 09/11/20 04:24 BP 117/78 09/11/20 04:24 Pulse Ox 94 L 09/11/20 04:24 Intake & Output 09/10/20 09/11/20 09/11/20 18:59 06:59 18:59 Intake Total 240 Output Total 1040 300 340 Balance -800 -300 -340 Intake: Oral 240 Output: Drainage 440 340 Right Abdomen 440 340 Urine 600 300 Other: Voiding Method Indwelling Catheter Indwelling Catheter # Bowel Movements 1 - Labs CBC & Chem 7: 09/11/20 06:57 09/11/20 06:57 Labs: Abnormal Lab Results - Last 24 Hours (Table) 09/10/20 09/11/20 09/11/20 Range/Units 06:09 06:57 06:57 WBC 12.2 H (3.8-10.6) k/uL RBC 3.50 L (4.30-5.90) m/uL Hgb 10.0 L (13.0-17.5) gm/dL Hct 33.9 L (39.0-53.0) % MCHC 29.6 L (31.0-37.0) g/dL RDW 16.6 H (11.5-15.5) % Neutrophils # 10.3 H (1.3-7.7) k/uL Lymphocytes # 0.8 L (1.0-4.8) k/uL Chloride 114 H 112 H (96-109) mmol/L Carbon Dioxide 21 L (22-30) mmol/L BUN 21 H (9-20) mg/dL BUN/Creatinine Ratio 35.00 H (12.00-20.00) Ratio Calcium 7.3 L 7.4 L (8.7-10.3) mg/dL Iron 10 L (65-175) ug/dL TIBC 182 L (228-460) ug/dL % Saturation 5.49 L (15.00-50.00) Vitamin B12 3760.0 H (200.0-944.0) pg/mL Microbiology - Last 24 Hours (Table) 09/05/20 18:13 Blood Culture - Preliminary Blood No Growth after 120 hours <Vito Schwartz - Last Filed: 09/11/20 12:44> Subjective As above. Patient's CAT scan yesterday shows no leak. He is tolerating clear liquids. Says his pain is about the same. CHAD drain is serous. White blood cell count is slightly elevated. 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 Suspect gastric source. Discussed operative findings further with the patient. Patient's prognosis is quite poor and consideration for palliative care and/or hospice was discussed. He will discuss further with oncology. We'll follow. Objective - Vital Signs Vital signs: Vital Signs Temp 97.8 F 09/11/20 11:22 Pulse 101 H 09/11/20 11:22 Resp 16 09/11/20 11:22 BP 105/73 09/11/20 11:22 Pulse Ox 95 05/19/21 11:22 Intake & Output 09/10/20 09/11/20 09/11/20 18:59 06:59 18:59 Intake Total 240 Output Total 1040 300 580 Balance -800 -300 -580 Intake: Oral 240 Output: Drainage 440 580 Right Abdomen 440 580 Urine 600 300 Other: Voiding Method Indwelling Catheter Indwelling Catheter # Bowel Movements 1 1 - Labs CBC & Chem 7: 09/11/20 06:57 09/11/20 06:57 Labs: Abnormal Lab Results - Last 24 Hours (Table) 09/10/20 09/11/20 09/11/20 Range/Units 06:09 06:57 06:57 WBC 12.2 H (3.8-10.6) k/uL RBC 3.50 L (4.30-5.90) m/uL Hgb 10.0 L (13.0-17.5) gm/dL Hct 33.9 L (39.0-53.0) % MCHC 29.6 L (31.0-37.0) g/dL RDW 16.6 H (11.5-15.5) % Neutrophils # 10.3 H (1.3-7.7) k/uL Lymphocytes # 0.8 L (1.0-4.8) k/uL Chloride 114 H 112 H (96-109) mmol/L Carbon Dioxide 21 L (22-30) mmol/L BUN 21 H (9-20) mg/dL BUN/Creatinine Ratio 35.00 H (12.00-20.00) Ratio Calcium 7.3 L 7.4 L (8.7-10.3) mg/dL Iron 10 L (65-175) ug/dL TIBC 182 L (228-460) ug/dL % Saturation 5.49 L (15.00-50.00) Vitamin B12 3760.0 H (200.0-944.0) pg/mL Microbiology - Last 24 Hours (Table) 09/05/20 18:13 Blood Culture - Preliminary Blood No Growth after 120 hours Assessment and Plan (1) Free intraperitoneal air Current Visit: Yes Status: Acute Code(s): K66.8 - OTHER SPECIFIED DISORDERS OF PERITONEUM SNOMED Code(s): 41233076
--- NOTE | 2020-09-11 13:24 | P.PN ---
Subjective Progress Note Date: 09/11/20 Principal diagnosis: Gastric Cancer Dr. Wills discussed results today, await biomarker testing. Objective - Vital Signs Vital signs: Vital Signs Temp 97.8 F 09/11/20 11:22 Pulse 101 H 09/11/20 11:22 Resp 16 09/11/20 11:22 BP 105/73 09/11/20 11:22 Pulse Ox 95 09/11/20 11:22 Intake & Output 09/10/20 09/11/20 09/11/20 18:59 06:59 18:59 Intake Total 240 Output Total 1040 300 660 Balance -800 -300 -660 Intake: Oral 240 Output: Drainage 440 660 Right Abdomen 440 660 Urine 600 300 Other: Voiding Method Indwelling Catheter Indwelling Catheter # Bowel Movements 1 1 - Exam - Constitutional General appearance: Present: no acute distress - EENT Eyes: Present: EOMI ENT: Present: hearing grossly normal, normal oropharynx - Respiratory Respiratory: bilateral: CTA - Cardiovascular Rhythm: regular Heart sounds: normal: S1, S2 - Gastrointestinal General gastrointestinal: Present: absent bowel sounds, soft - Integumentary Integumentary: Present: normal - Neurologic Neurologic: Present: CNII-XII intact - Musculoskeletal Musculoskeletal: Present: generalized weakness, strength equal bilaterally - Psychiatric Psychiatric: Present: A&O x's 3, appropriate affect - Labs CBC & Chem 7: 09/11/20 06:57 09/11/20 06:57 Labs: Abnormal Lab Results - Last 24 Hours (Table) 09/10/20 09/11/20 09/11/20 Range/Units 06:09 06:57 06:57 WBC 12.2 H (3.8-10.6) k/uL RBC 3.50 L (4.30-5.90) m/uL Hgb 10.0 L (13.0-17.5) gm/dL Hct 33.9 L (39.0-53.0) % MCHC 29.6 L (31.0-37.0) g/dL RDW 16.6 H (11.5-15.5) % Neutrophils # 10.3 H (1.3-7.7) k/uL Lymphocytes # 0.8 L (1.0-4.8) k/uL Chloride 114 H 112 H (96-109) mmol/L Carbon Dioxide 21 L (22-30) mmol/L BUN 21 H (9-20) mg/dL BUN/Creatinine Ratio 35.00 H (12.00-20.00) Ratio Calcium 7.3 L 7.4 L (8.7-10.3) mg/dL Iron 10 L (65-175) ug/dL TIBC 182 L (228-460) ug/dL % Saturation 5.49 L (15.00-50.00) Vitamin B12 3760.0 H (200.0-944.0) pg/mL Microbiology - Last 24 Hours (Table) 09/05/20 18:13 Blood Culture - Preliminary Blood No Growth after 120 hours Assessment and Plan Plan: Assessment and Plan Liver lesion Narrative/Plan: - Upper GI source are shown in results of pathology from intraoperative biopsy of liver nodules that were palpated during surgery. - Time to heal is minimum 3-4 weeks assuming no postop complications prior to options for systemic treatment. - Will send for further characterizing with Biomarker testing Current Visit: Yes Status: Acute Code(s): K76.9 - LIVER DISEASE, UNSPECIFIED SNOMED Code(s): 690166848 Perforated gastric ulcer Narrative/Plan: - S/P intervention surgery Current Visit: Yes Status: Acute Code(s): K25.5 - CHRONIC OR UNSPECIFIED GASTRIC ULCER WITH PERFORATION SNOMED Code(s): 9119123 Anemia Narrative/Plan: - IV Iron x3 days - Transfuse for hemoglobin less than 7 Current Visit: Yes Status: Acute Code(s): D64.9 - ANEMIA, UNSPECIFIED SNOMED Code(s): 521904889 Follow-up in office Biomarker testing Physician attest: I have completed the full history and physical and agree with above dictation, dictated as a ascribe
--- NOTE | 2020-09-11 14:05 | P.PN ---
Subjective Progress Note Date: 09/11/20 Perforated gastric ulcer/mass; status post repair Multiple liver lesions 70-year-old male with history of seizure disorder, coronary artery disease and previous ID, history of alcohol withdrawal seizures, patient is maintained on Keppra. Patient presented to the hospital with acute onset of abdominal pain described the pain in the upper abdomen started the morning he presented to the hospital. Pain has become very severe, described it as 10 out of 10. Patient had no previous history of peptic ulcer disease. CT of the abdomen and pelvis and chest x-ray showed no pneumoperitoneum. Patient was also noted to have multiple liver lesions consistent with metastatic disease to the liver. Patient was seen by Dr. bowers on consultation and he was taken straight from the ER to the OR, underwent exploratory laparotomy, repair of perforated gastric ulcer and underwent biopsy of liver mass. Postoperatively, patient was intubated and mechanically ventilated and was sent to the ICU Patient was successfully extubated this morning and is maintaining O2 saturation above 95% on 4 L 09/07/2020 patient is seen and evaluated on medical floor; was extubated yesterday, he is on 2 L nasal cannula, and his O2 saturations in the 90s, patient has no shortness of breath no cough no wheezing, however he has some vague abdominal discomfort. Patient had a PICC line placed yesterday, and the plan is to start patient on TPN and he will be not be orally fed for quite some time as per surgery on the case. CBC is relatively normal today hemoglobin is down to 9.3. Electrodes are normal renal profile is normal liver enzymes remain elevated. Patient will be monitored closely for alcohol withdrawal 09/08/2020 Patient is seen and evaluated on 5 N.; transferred out of ICU yesterday; continues to report feeling bloated; patient has NG tube in place and continues to have clear output Vital signs are reviewed and reveal temperature of 98.1, pulse 74, respirations 16 and blood pressure of 118/78 Patient remains nothing by mouth; surgery recommending to decrease amount of ice chips and water Pathology report is pending; plan is to consult oncology for further evaluation once biopsy is available 09/09/2020 Patient is seen this morning and per nursing staff patient was confused in the middle of the night and took out his NG tube, PICC line, and part of his Guajardo catheter and when talking with the patient he does not recall any of this happening. Following along closely with surgery as patient recently underwent exploratory laparotomy with repair of a perfect related gastric ulcer and was noted to have multiple liver lesions with biopsies obtained which are pending. Oncology consulted and following. Patient denies any chest pain or shortness of breath and continues to have abdominal discomfort. Patient denies bowel movement at this time but is reporting gas. Increased amount of serosanguineous drainage from the CHAD drain was also noted today. White blood count is 9.9, hemoglobin is 8.8, current sodium is 143 with a potassium of 4.1 and current creatinine is 0.6. 09/10/2020 Patient is seen in follow-up this morning continues to have abdominal discomfort states it is somewhat improved. Bowel sounds noted and patient is passing gas but no reports of bowel movement at this time. This morning patient did have NG tube although was discontinued by surgery. Pathology report of the liver biopsy came back today and is positive for metastatic adenocarcinoma with enteric differentiation and oncology is following. White blood count today is 10.2 with hemoglobin of 9.2, current sodium is 144 with a potassium of 3.8 and creatinine is 0.6. Will continue gentle IV hydration decrease the dose to 50 mL per hour and repeat a.m. labs. Will continue to follow along with surgery during hospitalization. 09/11/2020 Patient is seen in follow-up continues to have abdominal pain and states he is passing gas and has had a bowel movement and is being started on clear liquids by surgery. White blood count slightly elevated at 12.2 hemoglobin is stable at 10.0, sodium is 141 with a potassium of 4.0 and current creatinine is 0.68. Iron studies were low and patient is receiving IV iron infusions. Oncology also following and will be following up closely in the outpatient setting for further testing. Patient is extremely weak and will have PT/OT evaluate the patient. Review of systems: Constitutional: No reports of fatigue, fever, or chills Cardiovascular: No reports of chest pain or palpitations Respiratory: No reports of shortness of breath or cough GI: Reports continued abdominal discomfort at the surgical site and is passing gas with reported bowel movements : No reports of dysuria or retention Neurovascular: Reports generalized weakness All medications have been reviewed Objective - Vital Signs Vital signs: Vital Signs Temp 98 F 09/11/20 04:24 Pulse 99 09/11/20 04:24 Resp 16 09/11/20 04:24 BP 117/78 09/11/20 04:24 Pulse Ox 94 L 09/11/20 04:24 Intake & Output 09/10/20 09/11/20 09/11/20 18:59 06:59 18:59 Intake Total 240 Output Total 1040 300 220 Balance -800 -300 -220 Intake: Oral 240 Output: Drainage 440 220 Right Abdomen 440 220 Urine 600 300 Other: Voiding Method Indwelling Catheter Indwelling Catheter # Bowel Movements 1 - Exam Physical Exam: This is a 70-year-old male in no distress. Thin built, ill appearing, On room air Head: Atraumatic, normocephalic. ENT: PERRLA, EOMI, no neck masses, no thyromegaly, moist mucous membranes. NG tube has been discontinued by surgery Chest: Symmetrical chest expansion, diminished breath sounds at the bases with no crackles or rhonchi or wheezes.. Cardiac Exam: S1, S2 are present Abdomen: Soft, mildly tender around the midline incision site with CHAD drain noted, bowel sounds noted, abdominal binder in place Extremities: No clubbing, no edema, no cyanosis. Good pulses bilaterally. Musculoskeletal: No deformities. Neurological Exam: Alert and oriented 3 focal deficits. Diffusely weak Psychiatric: Normal mood affect and normal mental status examination. Skin: No rashes - Labs CBC & Chem 7: 09/11/20 06:57 09/11/20 06:57 Labs: Abnormal Lab Results - Last 24 Hours (Table) 09/10/20 09/11/20 09/11/20 Range/Units 06:09 06:57 06:57 WBC 12.2 H (3.8-10.6) k/uL RBC 3.50 L (4.30-5.90) m/uL Hgb 10.0 L (13.0-17.5) gm/dL Hct 33.9 L (39.0-53.0) % MCHC 29.6 L (31.0-37.0) g/dL RDW 16.6 H (11.5-15.5) % Neutrophils # 10.3 H (1.3-7.7) k/uL Lymphocytes # 0.8 L (1.0-4.8) k/uL Chloride 114 H 112 H (96-109) mmol/L Carbon Dioxide 21 L (22-30) mmol/L BUN 21 H (9-20) mg/dL BUN/Creatinine Ratio 35.00 H (12.00-20.00) Ratio Calcium 7.3 L 7.4 L (8.7-10.3) mg/dL Iron 10 L (65-175) ug/dL TIBC 182 L (228-460) ug/dL % Saturation 5.49 L (15.00-50.00) Vitamin B12 3760.0 H (200.0-944.0) pg/mL Microbiology - Last 24 Hours (Table) 09/05/20 18:13 Blood Culture - Preliminary Blood No Growth after 120 hours Assessment and Plan Assessment: Perforated gastric ulcer status post exploratory laparotomy with repair of the ulcer postop day #4 Multiple liver lesions: Suspicious for metastatic disease status post biopsy , oncology consulted and following Metastatic adenocarcinoma with enteric differentiation as noted on liver biopsy Seizure disorder, continue with home medications of Keppra 1500 mg twice daily History of alcoholism, continue to monitor for any signs of alcohol withdrawal COPD, not in acute exacerbation DVT prophylaxis: Heparin subcutaneous GI prophylaxis: No Code Plan: Continue with current medications. Patient is maintained on Zosyn along with Flagyl and Diflucan to continue. NG tube discontinued by surgery yesterday and patient is being started on clear liquids. Patient is maintained on CIWA protocol for his EtOH history although this period of confusion occurred shortly after receiving Ativan and pain medications. Avoid Ativan if possible and continue with IV narcotics conservatively. Liver biopsy was positive for metastatic adenocarcinoma with enteric differentiation. Will need close outpatient follow up with oncology. Will have PT/OT evaluate the patient as he continues to be extremely weak. Will continue to follow along with surgery during hospitalization.
[2020-09-11] MEDS: HYDROmorphone 1 MG/ML 1 ML SYRINGE IVP PRN (19:46)
[2020-09-12] MEDS: PIPERACILLIN-TAZOBACTAM 3.375 GM in SODIUM CHLORIDE 0.9% 100 ML IVPB SCH ×3 (02:25→18:22)
[2020-09-12 05:49] LABS: Anisocytosis Slight; HCT 36.3 % (39.0-53.0); HGB 10.8 gm/dL (13.0-17.5); Hypochromasia Moderate; MCH 28.3 pg (25.0-35.0); MCHC 29.7 g/dL (31.0-37.0); MCV 95.4 fL (80.0-100.0); Mean Platelet Volume 8.7; Platelet Count 313 k/uL (150-450); RDW 16.8 % (11.5-15.5); WBC 16.4 k/uL (3.8-10.6)
[2020-09-12 06:49] LABS: Lymphocytes # (M) 0.82 k/uL (1.0-4.8); Monocytes # (M) 0.49 k/uL (0-1.0); Neutrophils # (M) 15.09 k/uL (1.3-7.7); Neutrophils % (M) 92 %; Nucleated Red Blood Cells 0 /100 WBC (0-0); Total Cells Counted 100
[2020-09-12 06:50] LABS: Anisocytosis (M) Present; Polychromasia Present; Target Cells Present
[2020-09-12] MEDS: FLUCONAZOLE 100 MG TAB PEG/G-TUBE SCH (08:08)
[2020-09-12] MEDS: HEPARIN SODIUM,PORCINE/PF 5,000 UNIT/0.5 ML SYRINGE SQ SCH ×2 (08:08→15:45)
[2020-09-12] MEDS: THIAMINE 100 MG TAB PO SCH ×2 (08:08→15:45)
[2020-09-12] MEDS: PANTOPRAZOLE 40 MG/10 ML VIAL IV SCH ×2 (08:09→20:40)
[2020-09-12] MEDS: metroNIDAZOLE 500 MG TAB PEG/G-TUBE SCH ×2 (08:09→15:45)
[2020-09-12 08:46] LABS: Methylmalonic Acid 0.71 umol/L (<0.40)
[2020-09-12] MEDS: SODIUM FERRIC GLUCONAT-SUCROSE 125 MG in SODIUM CHLORIDE 0.9% 100 ML IVPB SCH (09:46)
--- NOTE | 2020-09-12 11:52 | P.PN ---
Subjective Progress Note Date: 09/05/20 Principal diagnosis: Gastric Cancer labs stable, hemo improved after iron Objective - Vital Signs Vital signs: Vital Signs Temp 98 F 09/12/20 04:49 Pulse 89 09/12/20 08:00 Resp 18 09/12/20 08:00 BP 113/78 09/12/20 04:49 Pulse Ox 95 09/12/20 04:49 Intake & Output 09/11/20 09/12/20 09/12/20 18:59 06:59 18:59 Output Total 1525 1075 250 Balance -1525 -1075 -250 Weight 79.2 kg Output: Gastric Drainage 80 Drainage 1100 270 250 Right Abdomen 1100 270 250 Urine 425 725 Other: Voiding Method Indwelling Catheter Indwelling Catheter Indwelling Catheter # Bowel Movements 1 - Exam - Constitutional General appearance: Present: no acute distress - EENT Eyes: Present: EOMI ENT: Present: hearing grossly normal, normal oropharynx - Respiratory Respiratory: bilateral: CTA - Cardiovascular Rhythm: regular Heart sounds: normal: S1, S2 - Gastrointestinal General gastrointestinal: Present: absent bowel sounds, soft - Integumentary Integumentary: Present: normal - Neurologic Neurologic: Present: CNII-XII intact - Musculoskeletal Musculoskeletal: Present: generalized weakness, strength equal bilaterally - Psychiatric Psychiatric: Present: A&O x's 3, appropriate affect - Labs CBC & Chem 7: 09/12/20 05:11 09/11/20 06:57 Labs: Abnormal Lab Results - Last 24 Hours (Table) 09/10/20 09/12/20 Range/Units 06:09 05:11 WBC 16.4 H (3.8-10.6) k/uL RBC 3.80 L (4.30-5.90) m/uL Hgb 10.8 L (13.0-17.5) gm/dL Hct 36.3 L (39.0-53.0) % MCHC 29.7 L (31.0-37.0) g/dL RDW 16.8 H (11.5-15.5) % Neutrophils # (Manual) 15.09 H (1.3-7.7) k/uL Lymphocytes # (Manual) 0.82 L (1.0-4.8) k/uL Methylmalonic Acid 0.71 H (<0.40) umol/L RBC Folate 1,215 H (280 - 791) ng/mL Microbiology - Last 24 Hours (Table) 09/05/20 18:13 Blood Culture - Final Blood No Growth after 144 hours Assessment and Plan Plan: Assessment and Plan Liver lesion Narrative/Plan: - Upper GI source are shown in results of pathology from intraoperative biopsy of liver nodules that were palpated during surgery. - Time to heal is minimum 3-4 weeks assuming no postop complications prior to options for systemic treatment. - Will send for further characterizing with Biomarker testing Current Visit: Yes Status: Acute Code(s): K76.9 - LIVER DISEASE, UNSPECIFIED SNOMED Code(s): 261713215 Perforated gastric ulcer Narrative/Plan: - S/P intervention surgery Current Visit: Yes Status: Acute Code(s): K25.5 - CHRONIC OR UNSPECIFIED GASTRIC ULCER WITH PERFORATION SNOMED Code(s): 6235372 Anemia Narrative/Plan: - IV Iron x3 days and hemoglobin improved, 10 today - Transfuse for hemoglobin less than 7 Current Visit: Yes Status: Acute Code(s): D64.9 - ANEMIA, UNSPECIFIED SNOMED Code(s): 945229434 Follow-up in office next week Biomarker testing on pathology for treatment plan options ordered
--- NOTE | 2020-09-12 12:28 | P.PN ---
<Carol Childress - Last Filed: 09/12/20 12:20> Subjective Progress Note Date: 09/12/20 CHIEF COMPLAINT: Perforated gastric ulcer HISTORY OF PRESENT ILLNESS: Patient is postop day #6 status post exploratory laparotomy, repair of perforated gastric ulcer and biopsy of liver mass. Patient is lying in bed. Patient is sleepy and a little confused he just received a dose of Ativan due to him feeling a little shaky and anxious. Patient is having bowel movements and passing gas. He does complain of abdominal pain. He is tolerating clear liquids. Per nurse is only eating a small amount. Afebrile. He is having tachycardia and white count is 16.4 hemoglobin 10.8 platelets 313 The pathology from the liver biopsy shows metastatic adenocarcinoma. Oncology is following. Oncology is doing biomarker testing on pathology for treatment plan options PHYSICAL EXAM: VITAL SIGNS: Reviewed. GENERAL: Well-developed in no acute distress. HEENT: No sclera icterus. Extraocular movements grossly intact. Moist buccal m ucosa. Head is atraumatic, normocephalic. ABDOMEN: Soft. distended. tenderness with palpation around incision site. Incision clean dry and intact. CHAD drain serous output NEUROLOGIC: Alert and oriented. Cranial nerves II through XII grossly intact. ASSESSMENT: 1. Perforated gastric ulcer status post exploratory laparotomy, repair of perforated gastric ulcer and biopsy of liver mass PLAN: -Continue clear liquid diet -Continue antibiotics -Consult PT OT -Encouraged patient to use incentive spirometer -Continue GI and DVT prophylaxis Physician Blending Tank Tender Helper note has been reviewed by physician. Signing provider agrees with the documented findings, assessment, and plan of care. Objective - Vital Signs Vital signs: Vital Signs Temp 97.8 F 09/12/20 11:40 Pulse 122 H 09/12/20 11:40 Resp 18 09/12/20 11:40 BP 159/69 09/12/20 11:40 Pulse Ox 96 09/12/20 11:40 Intake & Output 09/11/20 09/12/20 09/12/20 18:59 06:59 18:59 Output Total 1522 1075 250 Balance -0498 -3726 -719 Weight 79.2 kg Output: Gastric Drainage 80 Drainage 1100 270 250 Right Abdomen 1100 270 250 Urine 425 725 Other: Voiding Method Indwelling Catheter Indwelling Catheter Indwelling Catheter # Bowel Movements 1 - Labs CBC & Chem 7: 09/12/20 05:11 09/11/20 06:57 Labs: Abnormal Lab Results - Last 24 Hours (Table) 09/10/20 09/12/20 Range/Units 06:09 05:11 WBC 16.4 H (3.8-10.6) k/uL RBC 3.80 L (4.30-5.90) m/uL Hgb 10.8 L (13.0-17.5) gm/dL Hct 36.3 L (39.0-53.0) % MCHC 29.7 L (31.0-37.0) g/dL RDW 16.8 H (11.5-15.5) % Neutrophils # (Manual) 15.09 H (1.3-7.7) k/uL Lymphocytes # (Manual) 0.82 L (1.0-4.8) k/uL Methylmalonic Acid 0.71 H (<0.40) umol/L RBC Folate 1,215 H (280 - 791) ng/mL Microbiology - Last 24 Hours (Table) 09/05/20 18:13 Blood Culture - Final Blood No Growth after 144 hours <Vito Schwartz - Last Filed: 09/12/20 15:54> Subjective As above. Patient is tolerating clear liquids although not taking in much. CHAD drain volume has increased and is serous in appearance. Patient says his pain is about the same may be slightly improved. White blood cell count has increased. Spoke with the nursing staff and patient. CHAD output has not changed despite the color of the clear liquids the patient is ingesting. Spoke with nursing staff to have patient provided grape juice and to monitor the CHAD drain closely. Likely will advance diet further tomorrow. Objective - Vital Signs Vital signs: Vital Signs Temp 97.8 F 09/12/20 11:40 Pulse 90 09/12/20 15:36 Resp 18 09/12/20 11:40 BP 159/69 09/12/20 11:40 Pulse Ox 96 09/12/20 11:40 Intake & Output 09/11/20 09/12/20 09/12/20 18:59 06:59 18:59 Output Total 9069 5886 407 Balance -1525 -1075 -250 Weight 79.2 kg Output: Gastric Drainage 80 Drainage 1100 270 250 Right Abdomen 1100 270 250 Urine 425 725 Other: Voiding Method Indwelling Catheter Indwelling Catheter Indwelling Catheter # Bowel Movements 1 - Labs CBC & Chem 7: 09/12/20 05:11 09/11/20 06:57 Labs: Abnormal Lab Results - Last 24 Hours (Table) 09/10/20 09/12/20 Range/Units 06:09 05:11 WBC 16.4 H (3.8-10.6) k/uL RBC 3.80 L (4.30-5.90) m/uL Hgb 10.8 L (13.0-17.5) gm/dL Hct 36.3 L (39.0-53.0) % MCHC 29.7 L (31.0-37.0) g/dL RDW 16.8 H (11.5-15.5) % Neutrophils # (Manual) 15.09 H (1.3-7.7) k/uL Lymphocytes # (Manual) 0.82 L (1.0-4.8) k/uL Methylmalonic Acid 0.71 H (<0.40) umol/L Microbiology - Last 24 Hours (Table) 09/05/20 18:13 Blood Culture - Final Blood No Growth after 144 hours Assessment and Plan (1) Free intraperitoneal air Current Visit: Yes Status: Acute Code(s): K66.8 - OTHER SPECIFIED DISORDERS OF PERITONEUM SNOMED Code(s): 75247911
--- NOTE | 2020-09-12 13:20 | P.PN ---
Subjective Progress Note Date: 09/12/20 Perforated gastric ulcer/mass; status post repair Multiple liver lesions 70-year-old male with history of seizure disorder, coronary artery disease and previous [place], history of alcohol withdrawal seizures, patient is maintained on Keppra. Patient presented to the hospital with acute onset of abdominal pain described the pain in the upper abdomen started the morning he presented to the hospital. Pain has become very severe, described it as 10 out of 10. Patient had no previous history of peptic ulcer disease. CT of the abdomen and pelvis and chest x-ray showed no pneumoperitoneum. Patient was also noted to have multiple liver lesions consistent with metastatic disease to the liver. Patient was seen by Dr. bowers on consultation and he was taken straight from the ER to the OR, underwent exploratory laparotomy, repair of perforated gastric ulcer and underwent biopsy of liver mass. Postoperatively, patient was intubated and mechanically ventilated and was sent to the ICU Patient was successfully extubated this morning and is maintaining O2 saturation above 95% on 4 L 09/07/2020 patient is seen and evaluated on medical floor; was extubated yesterday, he is on 2 L nasal cannula, and his O2 saturations in the 90s, patient has no shortness of breath no cough no wheezing, however he has some vague abdominal discomfort. Patient had a PICC line placed yesterday, and the plan is to start patient on TPN and he will be not be orally fed for quite some time as per surgery on the case. CBC is relatively normal today hemoglobin is down to 9.3. Electrodes are normal renal profile is normal liver enzymes remain elevated. Patient will be monitored closely for alcohol withdrawal 09/08/2020 Patient is seen and evaluated on 5 N.; transferred out of ICU yesterday; continues to report feeling bloated; patient has NG tube in place and continues to have clear output Vital signs are reviewed and reveal temperature of 98.1, pulse 74, respirations 16 and blood pressure of 118/78 Patient remains nothing by mouth; surgery recommending to decrease amount of ice chips and water Pathology report is pending; plan is to consult oncology for further evaluation once biopsy is available 09/09/2020 Patient is seen this morning and per nursing staff patient was confused in the middle of the night and took out his NG tube, PICC line, and part of his Guajardo catheter and when talking with the patient he does not recall any of this happening. Following along closely with surgery as patient recently underwent exploratory laparotomy with repair of a perfect related gastric ulcer and was noted to have multiple liver lesions with biopsies obtained which are pending. Oncology consulted and following. Patient denies any chest pain or shortness of breath and continues to have abdominal discomfort. Patient denies bowel movement at this time but is reporting gas. Increased amount of serosanguineous drainage from the CHAD drain was also noted today. White blood count is 9.9, hemoglobin is 8.8, current sodium is 143 with a potassium of 4.1 and current creatinine is 0.6. 09/10/2020 Patient is seen in follow-up this morning continues to have abdominal discomfort states it is somewhat improved. Bowel sounds noted and patient is passing gas but no reports of bowel movement at this time. This morning patient did have NG tube although was discontinued by surgery. Pathology report of the liver biopsy came back today and is positive for metastatic adenocarcinoma with enteric differentiation and oncology is following. White blood count today is 10.2 with hemoglobin of 9.2, current sodium is 144 with a potassium of 3.8 and creatinine is 0.6. Will continue gentle IV hydration decrease the dose to 50 mL per hour and repeat a.m. labs. Will continue to follow along with surgery during hospitalization. 09/11/2020 Patient is seen in follow-up continues to have abdominal pain and states he is passing gas and has had a bowel movement and is being started on clear liquids by surgery. White blood count slightly elevated at 12.2 hemoglobin is stable at 10.0, sodium is 141 with a potassium of 4.0 and current creatinine is 0.68. Iron studies were low and patient is receiving IV iron infusions. Oncology also following and will be following up closely in the outpatient setting for further testing. Patient is extremely weak and will have PT/OT evaluate the patient. 09/12/2020 Patient is seen in follow-up this morning and is continued on clear liquids and eating very little and continues with abdominal discomfort. Patient states he is passing gas and having bowel movements. Patient continues to be extremely weak and will be evaluated by PT/OT therapy as he will likely require rehab upon discharge for strength and mobility. Oncology also following and having biomarkers done on pathology to determine treatment options in the outpatient setting. Patient is status post iron transfusions and hemoglobin today is 10.8. Patient continues on IV antibiotics and white blood count slightly elevated today at 16.4. Patient is maintained on CIWA protocol as he has a history of alcohol abuse and we'll transition to oral as he received a dose of IV Ativan again today and becomes more confused and altered with that. This was discussed with the admitting service. Review of systems: Constitutional: No reports of fatigue, fever, or chills Cardiovascular: No reports of chest pain or palpitations Respiratory: No reports of shortness of breath or cough GI: Reports continued abdominal discomfort at the surgical site and is passing gas with reported bowel movements : No reports of dysuria or retention Neurovascular: Reports generalized weakness All medications have been reviewed Objective - Vital Signs Vital signs: Vital Signs Temp 98 F 09/12/20 04:49 Pulse 89 09/12/20 08:00 Resp 18 09/12/20 08:00 BP 113/78 09/12/20 04:49 Pulse Ox 95 09/12/20 04:49 Intake & Output 09/11/20 09/12/20 09/12/20 18:59 06:59 18:59 Output Total 1525 1075 60 Balance -1525 -1075 -60 Weight 79.2 kg Output: Gastric Drainage 80 Drainage 1100 270 60 Right Abdomen 1100 270 60 Urine 425 725 Other: Voiding Method Indwelling Catheter Indwelling Catheter Indwelling Catheter # Bowel Movements 1 - Exam Physical Exam: This is a 70-year-old male in no distress. Sleeping although arousable. Thin built, ill appearing, On room air Head: Atraumatic, normocephalic. ENT: PERRLA, EOMI, no neck masses, no thyromegaly, moist mucous membranes. NG tube has been discontinued by surgery Chest: Symmetrical chest expansion, diminished breath sounds at the bases with no crackles or rhonchi or wheezes.. Cardiac Exam: S1, S2 are present Abdomen: Soft, mildly tender around the midline incision site with CHAD drain n oted, bowel sounds noted, abdominal binder in place Extremities: No clubbing, no edema, no cyanosis. Good pulses bilaterally. Musculoskeletal: No deformities. Neurological Exam: Alert and oriented 3 focal deficits. Diffusely weak Psychiatric: Normal mood affect and normal mental status examination. Skin: No rashes - Labs CBC & Chem 7: 09/12/20 05:11 09/11/20 06:57 Labs: Abnormal Lab Results - Last 24 Hours (Table) 09/10/20 09/12/20 Range/Units 06:09 05:11 WBC 16.4 H (3.8-10.6) k/uL RBC 3.80 L (4.30-5.90) m/uL Hgb 10.8 L (13.0-17.5) gm/dL Hct 36.3 L (39.0-53.0) % MCHC 29.7 L (31.0-37.0) g/dL RDW 16.8 H (11.5-15.5) % Neutrophils # (Manual) 15.09 H (1.3-7.7) k/uL Lymphocytes # (Manual) 0.82 L (1.0-4.8) k/uL Methylmalonic Acid 0.71 H (<0.40) umol/L RBC Folate 1,215 H (280 - 791) ng/mL Microbiology - Last 24 Hours (Table) 09/05/20 18:13 Blood Culture - Final Blood No Growth after 144 hours Assessment and Plan Assessment: Perforated gastric ulcer status post exploratory laparotomy with repair of the ulcer postop day #6 Multiple liver lesions: Suspicious for metastatic disease status post biopsy , oncology consulted and following Metastatic adenocarcinoma with enteric differentiation as noted on liver biopsy Seizure disorder, continue with home medications of Keppra 1500 mg twice daily History of alcoholism, continue to monitor for any signs of alcohol withdrawal and will transition to lower dose oral Ativan as needed as he becomes more altered and confused with IV Ativan COPD, not in acute exacerbation DVT prophylaxis: Heparin subcutaneous GI prophylaxis: No Code Plan: Continue with current medications. Patient is maintained on Zosyn along with Flagyl and Diflucan to continue. Patient continues on clear liquids and tolerating and continues to have abdominal discomfort at the surgical site. Patient is maintained on CIWA protocol for his EtOH history although has periods of confusion occurring shortly after receiving Ativan and will transition to oral lower dosing. continue with IV narcotics conservatively. Liver biopsy was positive for metastatic adenocarcinoma with enteric differentiation. Will need close outpatient follow up with oncology. Will have PT/OT evaluate the patient as he continues to be extremely weak. Patient will likely require rehab upon discharge for continued strength and mobility. Will continue to follow along with surgery during hospitalization.
[2020-09-12] MEDS: IPRATROPIUM-ALBUTEROL 3 ML NEB INHALATION PRN (15:24)
[2020-09-13] MEDS: HEPARIN SODIUM,PORCINE/PF 5,000 UNIT/0.5 ML SYRINGE SQ SCH ×3 (01:04→16:41)
[2020-09-13] MEDS: metroNIDAZOLE 500 MG TAB PEG/G-TUBE SCH ×3 (01:05→16:41)
[2020-09-13] MEDS: PIPERACILLIN-TAZOBACTAM 3.375 GM in SODIUM CHLORIDE 0.9% 100 ML IVPB SCH ×3 (02:52→19:43)
[2020-09-13] MEDS: THIAMINE 100 MG TAB PO SCH ×2 (08:05→16:41)
[2020-09-13] MEDS: FLUCONAZOLE 100 MG TAB PEG/G-TUBE SCH (08:05)
[2020-09-13] MEDS: PANTOPRAZOLE 40 MG/10 ML VIAL IV SCH ×2 (08:06→21:04)
[2020-09-13] MEDS: LORazepam 0.5 MG TAB PO PRN ×2 (08:15→19:43)
[2020-09-13 09:48] LABS: African American GFR (CKD) >90 (>60 ml/min/1.73 sqM); Anion Gap 7 mmol/L; Blood Urea Nitrogen 23 mg/dL (9-20); Calcium 7.7 mg/dL (8.4-10.2); Carbon Dioxide 21 mmol/L (22-30); Chloride 107 mmol/L (98-107); Glucose 90 mg/dL (74-99); Non-African American GFR(CKD) >90 (>60 ml/min/1.73 sqM); Sodium 135 mmol/L (137-145)
[2020-09-13 09:56] LABS: Anisocytosis Slight; Eosinophils % (A) 0 %; HCT 37.1 % (39.0-53.0); HGB 11.3 gm/dL (13.0-17.5); Hypochromasia Moderate; Lymphocytes % (A) 6 %; MCH 28.9 pg (25.0-35.0); MCHC 30.5 g/dL (31.0-37.0); MCV 94.9 fL (80.0-100.0); Mean Platelet Volume 9.4; Monocytes % (A) 7 %; Neutrophils % (A) 86 %; Platelet Count 310 k/uL (150-450); RBC 3.91 m/uL (4.30-5.90); RDW 17.1 % (11.5-15.5); WBC 18.1 k/uL (3.8-10.6)
[2020-09-13 09:57] LABS: Basophils % (A) 0 %; Lymphocytes # (A) 1.1 k/uL (1.0-4.8); Monocytes # (A) 1.2 k/uL (0-1.0); Neutrophils # (A) 15.5 k/uL (1.3-7.7)
--- NOTE | 2020-09-13 11:22 | P.PN ---
<Carol Childress - Last Filed: 09/13/20 11:17> Subjective Progress Note Date: 09/13/20 CHIEF COMPLAINT: Perforated gastric ulcer HISTORY OF PRESENT ILLNESS: Patient is postop day #8 status post exploratory laparotomy, repair of perforated gastric ulcer and biopsy of liver mass. Patient is sitting up in bedside chair. He did walk from the bed to the chair with physical therapy. He reports that his abdominal pain is controlled and about the same as it has been. Denies any nausea or vomiting. He is having bowel movements. And passing gas. His tachycardia has improved. He is afebrile. WBC did increase to 18.1 hemoglobin 11.3 platelets 310 creatinine 0.78 CHAD drain still having a lot of of serous output. Patient had 410 mL reported this morning. Patient was given grape juice and had no change in his CHAD drain color. The pathology from the liver biopsy shows metastatic adenocarcinoma. Oncology is following. Oncology is doing biomarker testing on pathology for treatment plan options PHYSICAL EXAM: VITAL SIGNS: Reviewed. GENERAL: Well-developed in no acute distress. HEENT: No sclera icterus. Extraocular movements grossly intact. Moist buccal mucosa. Head is atraumatic, normocephalic. ABDOMEN: Soft. distended. tenderness with palpation around incision site. Incision clean dry and intact. CHAD drain serous output NEUROLOGIC: Alert and oriented. Cranial nerves II through XII grossly intact. ASSESSMENT: 1. Perforated gastric ulcer status post exploratory laparotomy, repair of perforated gastric ulcer and biopsy of liver mass PLAN: -Continue clear liquid diet -Added Ensure clear 3 times a day with meals -Continue antibiotics -Consult PT OT -Encouraged patient to use incentive spirometer -Encouraged patient to ambulate -Continue GI and DVT prophylaxis Physician Guide Rail Cleaner note has been reviewed by physician. Signing provider agrees with the documented findings, assessment, and plan of care. Objective - Vital Signs Vital signs: Vital Signs Temp 98.2 F 09/13/20 04:37 Pulse 85 09/13/20 04:37 Resp 18 09/13/20 04:37 BP 115/71 09/13/20 04:37 Pulse Ox 96 09/13/20 04:37 Intake & Output 09/12/20 09/13/20 09/13/20 18:59 06:59 18:59 Intake Total 400 650 Output Total 530 1040 80 Balance -130 -390 -80 Intake: IV 400 650 Piperacillin-Tazobactam 3 100 .375 gm In Sodium Chloride 0.9% 100 ml @ 25 mls/hr IVPB Q8H [facility] Rx#: [id number] Sodium Chloride 0.9% 1, 400 550 000 ml @ 50 mls/hr IV . Q20H [facility] Rx#:[id number] Output: Drainage 330 690 80 Right Abdomen 330 690 80 Urine 200 200 Uretheral (Guajardo) 200 Stool 150 Other: Voiding Method Indwelling Catheter Indwelling Catheter Indwelling Catheter # Bowel Movements 1 1 - Labs CBC & Chem 7: 09/13/20 08:45 09/13/20 08:45 Labs: Abnormal Lab Results - Last 24 Hours (Table) 09/13/20 09/13/20 Range/Units 08:45 08:45 WBC 18.1 H (3.8-10.6) k/uL RBC 3.91 L (4.30-5.90) m/uL Hgb 11.3 L (13.0-17.5) gm/dL Hct 37.1 L (39.0-53.0) % MCHC 30.5 L (31.0-37.0) g/dL RDW 17.1 H (11.5-15.5) % Neutrophils # 15.5 H (1.3-7.7) k/uL Monocytes # 1.2 H (0-1.0) k/uL Sodium 135 L (137-145) mmol/L Carbon Dioxide 21 L (22-30) mmol/L BUN 23 H (9-20) mg/dL Calcium 7.7 L (8.4-10.2) mg/dL <Vito Schwartz - Last Filed: 09/13/20 12:42> Subjective As above. Pain is about the same. White blood cell count increased. CHAD is se velma. No change in the appearance of the CHAD drain with the various liquids the patient has been drinking. Will begin full liquids. I did discuss consideration for palliative care with patient and oncology. Objective - Vital Signs Vital signs: Vital Signs Temp 98.0 F 09/13/20 11:57 Pulse 57 L 09/13/20 11:57 Resp 17 09/13/20 11:57 BP 108/76 09/13/20 11:57 Pulse Ox 96 09/13/20 11:57 Intake & Output 09/12/20 09/13/20 09/13/20 18:59 06:59 18:59 Intake Total 400 650 Output Total 530 1040 220 Balance -130 -390 -220 Intake: IV 400 650 Piperacillin-Tazobactam 3 100 .375 gm In Sodium Chloride 0.9% 100 ml @ 25 mls/hr IVPB Q8H [facility] Rx#: [id number] Sodium Chloride 0.9% 1, 400 550 000 ml @ 50 mls/hr IV . Q20H [facility] Rx#:[id number] Output: Drainage 330 690 220 Right Abdomen 330 690 220 Urine 200 200 Uretheral (Guajardo) 200 Stool 150 Other: Voiding Method Indwelling Catheter Indwelling Catheter Indwelling Catheter # Bowel Movements 1 1 - Labs CBC & Chem 7: 09/13/20 08:45 09/13/20 08:45 Labs: Abnormal Lab Results - Last 24 Hours (Table) 09/13/20 09/13/20 Range/Units 08:45 08:45 WBC 18.1 H (3.8-10.6) k/uL RBC 3.91 L (4.30-5.90) m/uL Hgb 11.3 L (13.0-17.5) gm/dL Hct 37.1 L (39.0-53.0) % MCHC 30.5 L (31.0-37.0) g/dL RDW 17.1 H (11.5-15.5) % Neutrophils # 15.5 H (1.3-7.7) k/uL Monocytes # 1.2 H (0-1.0) k/uL Sodium 135 L (137-145) mmol/L Carbon Dioxide 21 L (22-30) mmol/L BUN 23 H (9-20) mg/dL Calcium 7.7 L (8.4-10.2) mg/dL Assessment and Plan (1) Free intraperitoneal air Current Visit: Yes Status: Acute Code(s): K66.8 - OTHER SPECIFIED DISORDERS OF PERITONEUM SNOMED Code(s): 65398838
[2020-09-13] MEDS: HYDROmorphone 0.5 MG/0.5 ML SYRINGE IVP PRN ×2 (11:55→19:42)
--- NOTE | 2020-09-13 15:27 | P.PN ---
Subjective Progress Note Date: 09/13/20 Perforated gastric ulcer/mass; status post repair Multiple liver lesions 70-year-old male with history of seizure disorder, coronary artery disease and previous [place], history of alcohol withdrawal seizures, patient is maintained on Keppra. Patient presented to the hospital with acute onset of abdominal pain described the pain in the upper abdomen started the morning he presented to the hospital. Pain has become very severe, described it as 10 out of 10. Patient had no previous history of peptic ulcer disease. CT of the abdomen and pelvis and chest x-ray showed no pneumoperitoneum. Patient was also noted to have multiple liver lesions consistent with metastatic disease to the liver. Patient was seen by Dr. bowers on consultation and he was taken straight from the ER to the OR, underwent exploratory laparotomy, repair of perforated gastric ulcer and underwent biopsy of liver mass. Postoperatively, patient was intubated and mechanically ventilated and was sent to the ICU Patient was successfully extubated this morning and is maintaining O2 saturation above 95% on 4 L 09/07/2020 patient is seen and evaluated on medical floor; was extubated yesterday, he is on 2 L nasal cannula, and his O2 saturations in the 90s, patient has no shortness of breath no cough no wheezing, however he has some vague abdominal discomfort. Patient had a PICC line placed yesterday, and the plan is to start patient on TPN and he will be not be orally fed for quite some time as per surgery on the case. CBC is relatively normal today hemoglobin is down to 9.3. Electrodes are normal renal profile is normal liver enzymes remain elevated. Patient will be monitored closely for alcohol withdrawal 09/08/2020 Patient is seen and evaluated on 5 N.; transferred out of ICU yesterday; continues to report feeling bloated; patient has NG tube in place and continues to have clear output Vital signs are reviewed and reveal temperature of 98.1, pulse 74, respirations 16 and blood pressure of 118/78 Patient remains nothing by mouth; surgery recommending to decrease amount of ice chips and water Pathology report is pending; plan is to consult oncology for further evaluation once biopsy is available 09/09/2020 Patient is seen this morning and per nursing staff patient was confused in the middle of the night and took out his NG tube, PICC line, and part of his Guajardo catheter and when talking with the patient he does not recall any of this happening. Following along closely with surgery as patient recently underwent exploratory laparotomy with repair of a perfect related gastric ulcer and was noted to have multiple liver lesions with biopsies obtained which are pending. Oncology consulted and following. Patient denies any chest pain or shortness of breath and continues to have abdominal discomfort. Patient denies bowel movement at this time but is reporting gas. Increased amount of serosanguineous drainage from the CHAD drain was also noted today. White blood count is 9.9, hemoglobin is 8.8, current sodium is 143 with a potassium of 4.1 and current creatinine is 0.6. 09/10/2020 Patient is seen in follow-up this morning continues to have abdominal discomfort states it is somewhat improved. Bowel sounds noted and patient is passing gas but no reports of bowel movement at this time. This morning patient did have NG tube although was discontinued by surgery. Pathology report of the liver biopsy came back today and is positive for metastatic adenocarcinoma with enteric differentiation and oncology is following. White blood count today is 10.2 with hemoglobin of 9.2, current sodium is 144 with a potassium of 3.8 and creatinine is 0.6. Will continue gentle IV hydration decrease the dose to 50 mL per hour and repeat a.m. labs. Will continue to follow along with surgery during hospitalization. 09/11/2020 Patient is seen in follow-up continues to have abdominal pain and states he is passing gas and has had a bowel movement and is being started on clear liquids by surgery. White blood count slightly elevated at 12.2 hemoglobin is stable at 10.0, sodium is 141 with a potassium of 4.0 and current creatinine is 0.68. Iron studies were low and patient is receiving IV iron infusions. Oncology also following and will be following up closely in the outpatient setting for further testing. Patient is extremely weak and will have PT/OT evaluate the patient. 09/12/2020 Patient is seen in follow-up this morning and is continued on clear liquids and eating very little and continues with abdominal discomfort. Patient states he is passing gas and having bowel movements. Patient continues to be extremely weak and will be evaluated by PT/OT therapy as he will likely require rehab upon discharge for strength and mobility. Oncology also following and having biomarkers done on pathology to determine treatment options in the outpatient setting. Patient is status post iron transfusions and hemoglobin today is 10.8. Patient continues on IV antibiotics and white blood count slightly elevated today at 16.4. Patient is maintained on CIWA protocol as he has a history of alcohol abuse and we'll transition to oral as he received a dose of IV Ativan again today and becomes more confused and altered with that. This was discussed with the admitting service. 09/13/2020 Patient is seen in follow-up continues to have large amounts of output noted in the CHAD drain and is being closely monitored. White blood count elevated today at 18.1 and maintained on IV antibiotics and will continue. Patient continues with clear liquid diet and tolerating although not much of an appetite. Patient is working with physical therapy and continues to be weak. Will continue to follow along with surgery Review of systems: Constitutional: No reports of fatigue, fever, or chills Cardiovascular: No reports of chest pain or palpitations Respiratory: No reports of shortness of breath or cough GI: Reports continued abdominal discomfort at the surgical site and is passing gas with reported bowel movements : No reports of dysuria or retention Neurovascular: Reports generalized weakness All medications have been reviewed Objective - Vital Signs Vital signs: Vital Signs Temp 98.2 F 09/13/20 04:37 Pulse 85 09/13/20 04:37 Resp 18 09/13/20 04:37 BP 115/71 09/13/20 04:37 Pulse Ox 96 09/13/20 04:37 Intake & Output 09/12/20 09/13/20 09/13/20 18:59 06:59 18:59 Intake Total 400 650 Output Total 530 1040 80 Balance -130 -390 -80 Intake: IV 400 650 Piperacillin-Tazobactam 3 100 .375 gm In Sodium Chloride 0.9% 100 ml @ 25 mls/hr IVPB Q8H [facility] Rx#: [id number] Sodium Chloride 0.9% 1, 400 550 000 ml @ 50 mls/hr IV . Q20H [facility] Rx#:[id number] Output: Drainage 330 690 80 Right Abdomen 330 690 80 Urine 200 200 Uretheral (Guajardo) 200 Stool 150 Other: Voiding Method Indwelling Catheter Indwelling Catheter Indwelling Catheter # Bowel Movements 1 1 - Exam Physical Exam: This is a 70-year-old male in no distress. Sleeping although arousable. Thin built, ill appearing, On room air Head: Atraumatic, normocephalic. ENT: PERRLA, EOMI, no neck masses, no thyromegaly, moist mucous membranes. NG tube has been discontinued by surgery Chest: Symmetrical chest expansion, diminished breath sounds at the bases with no crackles or rhonchi or wheezes.. Cardiac Exam: S1, S2 are present Abdomen: Soft, mildly tender around the midline incision site with CHAD drain noted with large amounts of bilious drainage noted, bowel sounds noted, abdominal binder in place Extremities: No clubbing, no edema, no cyanosis. Good pulses bilaterally. Musculoskeletal: No deformities. Neurological Exam: Alert and oriented 3 focal deficits. Diffusely weak Psychiatric: Normal mood affect and normal mental status examination. Skin: No rashes - Labs CBC & Chem 7: 09/13/20 08:45 09/13/20 08:45 Assessment and Plan Assessment: Perforated gastric ulcer status post exploratory laparotomy with repair of the ulcer postop day #7 Multiple liver lesions: Suspicious for metastatic disease status post biopsy , oncology following Metastatic adenocarcinoma with enteric differentiation as noted on liver biopsy Seizure disorder, continue with home medications of Keppra 1500 mg twice daily History of alcoholism, continue to monitor for any signs of alcohol withdrawal and will transition to lower dose oral Ativan as needed as he becomes more altered and confused with IV Ativan COPD, not in acute exacerbation DVT prophylaxis: Heparin subcutaneous GI prophylaxis: No Code Plan: Continue with current medications. Patient is maintained on Zosyn along with Flagyl and Diflucan to continue. Patient continues on clear liquids and tolerating and continues to have abdominal discomfort at the surgical site. Patient is maintained on CIWA protocol for his EtOH history although has periods of confusion occurring shortly after receiving Ativan and will transition to oral lower dosing. continue with IV narcotics conservatively. Liver biopsy was positive for metastatic adenocarcinoma with enteric differentiation. Will need close outpatient follow up with oncology. PT/OT to follow as he continues to be extremely weak. Patient will likely require rehab upon discharge for continued strength and mobility. Will continue to follow along with surgery during hospitalization. Repeat a.m. labs.
--- NOTE | 2020-09-13 16:39 | P.PN ---
Subjective Progress Note Date: 09/13/20 Principal diagnosis: Gastric Cancer Patient with increased abdominal pain. I have started a fentanyl patch, as transdermal is best approach with current picture. Objective - Vital Signs Vital signs: Vital Signs Temp 98.0 F 09/13/20 11:57 Pulse 57 L 09/13/20 11:57 Resp 17 09/13/20 11:57 BP 108/76 09/13/20 11:57 Pulse Ox 96 09/13/20 11:57 Intake & Output 09/12/20 09/13/20 09/13/20 18:59 06:59 18:59 Intake Total 400 650 Output Total 530 1040 310 Balance -130 -390 -310 Weight 79.2 kg Intake: IV 400 650 Piperacillin-Tazobactam 3 100 .375 gm In Sodium Chloride 0.9% 100 ml @ 25 mls/hr IVPB Q8H [facility] Rx#: [id number] Sodium Chloride 0.9% 1, 400 550 000 ml @ 50 mls/hr IV . Q20H [facility] Rx#:[id number] Output: Drainage 330 690 310 Right Abdomen 330 690 310 Urine 200 200 Uretheral (Guajardo) 200 Stool 150 Other: Voiding Method Indwelling Catheter Indwelling Catheter Indwelling Catheter # Bowel Movements 1 1 - Exam - Constitutional General appearance: Present: no acute distress - EENT Eyes: Present: EOMI ENT: Present: hearing grossly normal, normal oropharynx - Respiratory Respiratory: bilateral: CTA - Cardiovascular Rhythm: regular Heart sounds: normal: S1, S2 - Gastrointestinal General gastrointestinal: Present: absent bowel sounds, soft +tender - Integumentary Integumentary: Present: normal - Neurologic Neurologic: Present: CNII-XII intact - Musculoskeletal Musculoskeletal: Present: generalized weakness, strength equal bilaterally - Psychiatric Psychiatric: Present: A&O x's 3, appropriate affect - Labs CBC & Chem 7: 09/13/20 08:45 09/13/20 08:45 Labs: Abnormal Lab Results - Last 24 Hours (Table) 09/13/20 09/13/20 Range/Units 08:45 08:45 WBC 18.1 H (3.8-10.6) k/uL RBC 3.91 L (4.30-5.90) m/uL Hgb 11.3 L (13.0-17.5) gm/dL Hct 37.1 L (39.0-53.0) % MCHC 30.5 L (31.0-37.0) g/dL RDW 17.1 H (11.5-15.5) % Neutrophils # 15.5 H (1.3-7.7) k/uL Monocytes # 1.2 H (0-1.0) k/uL Sodium 135 L (137-145) mmol/L Carbon Dioxide 21 L (22-30) mmol/L BUN 23 H (9-20) mg/dL Calcium 7.7 L (8.4-10.2) mg/dL Assessment and Plan Plan: Assessment and Plan Liver lesion Narrative/Plan: - Upper GI source are shown in results of pathology from intraoperative biopsy of liver nodules that were palpated during surgery. - Time to heal is minimum 3-4 weeks assuming no postop complications prior to options for systemic treatment. - Will send for further characterizing with Biomarker testing Current Visit: Yes Status: Acute Code(s): K76.9 - LIVER DISEASE, UNSPECIFIED SNOMED Code(s): 284391520 Perforated gastric ulcer Narrative/Plan: - S/P intervention surgery Current Visit: Yes Status: Acute Code(s): K25.5 - CHRONIC OR UNSPECIFIED GASTRIC ULCER WITH PERFORATION SNOMED Code(s): 9184103 Anemia Narrative/Plan: - IV Iron x3 days and hemoglobin improved, 10 today - Transfuse for hemoglobin less than 7 Current Visit: Yes Status: Acute Code(s): D64.9 - ANEMIA, UNSPECIFIED SNOMED Code(s): 290026746 Follow-up in office next week Biomarker testing on pathology for treatment plan options ordered Palliaitive care at discharge for increased assistance with life threatening chronic illness (PT/OT/NA/RN) Fentanyl patch as admisinstration via peg for long acting is not appropriate
[2020-09-13] MEDS: IPRATROPIUM-ALBUTEROL 3 ML NEB INHALATION PRN (20:04)
[2020-09-13] MEDS ORDERED: MORPHINE SULFATE ER 15 MG TABLET PO SCH (21:00)
[2020-09-13] MEDS ORDERED: SENNOSIDES-DOCUSATE SODIUM 1 EACH TAB PO SCH (21:00)
[2020-09-13] MEDS: MORPHINE SULFATE ER 15 MG TABLET PO SCH (21:04)
[2020-09-14] MEDS: metroNIDAZOLE 500 MG TAB PEG/G-TUBE SCH ×3 (00:03→18:29)
[2020-09-14] MEDS: HEPARIN SODIUM,PORCINE/PF 5,000 UNIT/0.5 ML SYRINGE SQ SCH ×3 (00:03→18:28)
[2020-09-14] MEDS: PIPERACILLIN-TAZOBACTAM 3.375 GM in SODIUM CHLORIDE 0.9% 100 ML IVPB SCH ×3 (03:56→20:30)
[2020-09-14] MEDS: MORPHINE SULFATE ER 15 MG TABLET PO SCH ×2 (08:08→20:57)
[2020-09-14] MEDS: THIAMINE 100 MG TAB PO SCH ×2 (08:08→18:29)
[2020-09-14] MEDS: PANTOPRAZOLE 40 MG/10 ML VIAL IV SCH ×2 (08:09→20:57)
[2020-09-14] MEDS: FLUCONAZOLE 100 MG TAB PEG/G-TUBE SCH (08:10)
[2020-09-14] MEDS: HYDROmorphone 1 MG/ML 1 ML SYRINGE IVP PRN (10:55)
[2020-09-14 12:09] LABS: Glucose,Whole Blood 117 mg/dL (75-99)
--- NOTE | 2020-09-14 12:57 | P.PN ---
Subjective Progress Note Date: 09/14/20 CHIEF COMPLAINT: Gastric perforation with gastrointestinal cancer HISTORY OF PRESENT ILLNESS: The patient is a 70-year-old with history of gastric perforation and metastatic gastrointestinal cancer. He is resting comfortably. No new complaints. ROS:. No fevers or chills. No new chest pain. No productive sputum PHYSICAL EXAM: VITAL SIGNS: Reviewed CONSTITUTIONAL: Well developed and in no acute distress. EYES: Conjuctivae without sclera icterus. Extraocular movements grossly intact. HEAD, EARS, NOSE, THROAT: Moist buccal mucosa. Head is atraumatic, normocephalic. Hears conversational speech. No nasal drainage. NECK: Supple. No thyroidomegaly. RESPIRATORY: Non-labored respirations and equal bilateral excursions. CARDIOVASCULAR: Palpable 2+ radial pulses. ABDOMEN: Dressing intact. CHAD present. MUSCULOSKELETAL: No gross deformity of the lower extremities noted. No clubbing. No cyanosis. SKIN: Good skin turgor. Well perfused. NEUROLOGIC: Cranial nerves II through XII grossly intact. No focal or lateralizing signs. PSYCH: Appropriate affect. Alert and oriented to person, place and time. STUDIES: Reviewed a CT of the abdomen and pelvis with multiple liver metastatic lesions. CHAD present the left upper quadrant in good position. This is my independent interpretation. PATHOLOGY: Liver wedge biopsy consistent with adenocarcinoma. CLINICAL LABS: Reviewed. WBC trending upward from 15-18,000 yesterday. ASSESSMENT: 1. Perforated stomach 2. Metastatic adenocarcinoma to liver PLAN: 1. Continue CHAD drain. 2. Patient has progressive disease for which hospice may be of benefit for metastatic adenocarcinoma Objective - Vital Signs Vital signs: Vital Signs Temp 97.6 F 09/14/20 04:30 Pulse 59 L 09/14/20 04:30 Resp 20 09/14/20 04:30 BP 103/62 09/14/20 04:30 Pulse Ox 97 09/14/20 04:30 Intake & Output 09/13/20 09/14/20 09/14/20 18:59 06:59 18:59 Intake Total 1100 100 Output Total 690 592 Balance 410 -492 Weight 79.2 kg Intake: IV 700 Piperacillin-Tazobactam 3 100 .375 gm In Sodium Chloride 0.9% 100 ml @ 25 mls/hr IVPB Q8H [facility] Rx#: [id number] Sodium Chloride 0.9% 1, 600 000 ml @ 50 mls/hr IV . Q20H [facility] Rx#:[id number] Oral 400 100 Output: Drainage 490 392 Right Abdomen 490 392 Urine 200 200 Uretheral (Guajardo) 200 200 Other: Voiding Method Indwelling Catheter Indwelling Catheter # Bowel Movements 1 1 - Labs CBC & Chem 7: 09/13/20 08:45 09/13/20 08:45 Labs: Abnormal Lab Results - Last 24 Hours (Table) 09/13/20 Range/Units 08:45 WBC 18.1 H (3.8-10.6) k/uL RBC 3.91 L (4.30-5.90) m/uL Hgb 11.3 L (13.0-17.5) gm/dL Hct 37.1 L (39.0-53.0) % MCHC 30.5 L (31.0-37.0) g/dL RDW 17.1 H (11.5-15.5) % Neutrophils # 15.5 H (1.3-7.7) k/uL Monocytes # 1.2 H (0-1.0) k/uL Assessment and Plan (1) Metastatic adenocarcinoma to liver with unknown primary site Current Visit: Yes Status: Acute Code(s): C78.7 - SECONDARY MALIG NEOPLASM OF LIVER AND INTRAHEPATIC BILE DUCT; C80.1 - MALIGNANT (PRIMARY) NEOPLASM, UNSPECIFIED SNOMED Code(s): 7158270654802 (2) Free intraperitoneal air Current Visit: Yes Status: Acute Code(s): K66.8 - OTHER SPECIFIED DISORDERS OF PERITONEUM SNOMED Code(s): 85924372 (3) Perforated gastric ulcer Current Visit: Yes Status: Acute Code(s): K25.5 - CHRONIC OR UNSPECIFIED GASTRIC ULCER WITH PERFORATION SNOMED Code(s): 8035953
[2020-09-14] MEDS: LORazepam 0.5 MG TAB PO PRN (13:15)
[2020-09-14] MEDS ORDERED: SODIUM CHLORIDE 0.9% 1,000 ML IV ONE (15:27)
--- NOTE | 2020-09-14 16:27 | P.PN ---
Subjective patient is admitted after a perforated peptic ulcer, patient also found to have multiple lesions in the liver found to have, primary is unknown yet.patient is urine output is bit low today. Patient will be started on IV fluids. Patient looks bit lethargic tired.Postoperatively patient was intubated 6 seconds J extubated presently on a medical and surgical floor. Constitutional:as mentioned in the interval history Cardio vascular: denied any chest pain, palpitations Gastrointestinal denied any nausea vomiting Pulmonary: Denied any shortness of breath cough Neurologic denied any new focal deficits All inpatient medications were reviewed and appropriate changes in these medications as dictated in the interval history and assessment and plan. Objective - Vital Signs Vital signs: Vital Signs Temp 99.5 F 09/14/20 15:20 Pulse 75 09/14/20 15:20 Resp 22 09/14/20 15:20 BP 114/72 09/14/20 15:20 Pulse Ox 96 09/14/20 15:20 Intake & Output 09/13/20 09/14/20 09/14/20 18:59 06:59 18:59 Intake Total 1100 100 Output Total 690 592 515 Balance 410 -492 -515 Weight 79.2 kg Intake: IV 700 Piperacillin-Tazobactam 3 100 .375 gm In Sodium Chloride 0.9% 100 ml @ 25 mls/hr IVPB Q8H [facility] Rx#: [id number] Sodium Chloride 0.9% 1, 600 000 ml @ 50 mls/hr IV . Q20H [facility] Rx#:[id number] Oral 400 100 Output: Drainage 490 392 515 Right Abdomen 490 392 515 Urine 200 200 Uretheral (Guajardo) 200 200 Other: Voiding Method Indwelling Catheter Indwelling Catheter Indwelling Catheter # Bowel Movements 1 1 1 - Exam PHYSICAL EXAMINATION: GENERAL: The patient is alert and oriented x2-3, not in any acute distress. Well developed, well nourished. patient appears to be lethargic HEENT: Pupils are round and equally reacting to light. EOMI. No scleral icterus. No conjunctival pallor. Normocephalic, atraumatic. No pharyngeal erythema. No thyromegaly. CARDIOVASCULAR: S1 and S2 present. No murmurs, rubs, or gallops. PULMONARY: Chest is clear to auscultation, no wheezing or crackles. ABDOMEN: Soft, nontender, nondistended, normoactive bowel sounds. No palpable organomegaly. MUSCULOSKELETAL: No joint swelling or deformity. EXTREMITIES: No cyanosis, clubbing, or pedal edema. NEUROLOGICAL: Gross neurological examination did not reveal any focal deficits. SKIN: No rashes. - Labs CBC & Chem 7: 09/13/20 08:45 09/13/20 08:45 Labs: Abnormal Lab Results - Last 24 Hours (Table) 09/14/20 Range/Units 12:02 POC Glucose (mg/dL) 117 H (75-99) mg/dL Assessment and Plan Plan: Perforated gastric ulcer status post exploratory laparotomy with repair of the ulcer postop day #8, patient remains on Zosyn. Patient will be started on IV fluids urine output has come down will repeat the basic metabolic profile. is presently on the Flagyl as well as Diflucan Multiple liver lesions: Suspicious for metastatic disease status post biopsy , oncology following Metastatic adenocarcinoma with enteric differentiation as noted on liver biopsy Seizure disorder, continue with home medications of Keppra 1500 mg twice daily History of alcoholism, continue to monitor for any signs of alcohol withdrawal and will transition to lower dose oral Ativan as needed as he becomes more altered and confused with IV Ativan COPD, not in acute exacerbation DVT prophylaxis: Heparin subcutaneous GI prophylaxis: No Code
[2020-09-14 16:35] LABS: African American GFR (CKD) 80 (>60 ml/min/1.73 sqM); Anion Gap 11 mmol/L; Blood Urea Nitrogen 28 mg/dL (9-20); Calcium 7.6 mg/dL (8.4-10.2); Carbon Dioxide 15 mmol/L (22-30); Chloride 110 mmol/L (98-107); Glucose 134 mg/dL (74-99); Non-African American GFR(CKD) 69 (>60 ml/min/1.73 sqM); Potassium 3.3 mmol/L (3.5-5.1); Sodium 136 mmol/L (137-145)
[2020-09-14 16:38] LABS: Anisocytosis Slight; Basophils % (A) 0 %; Eosinophils % (A) 0 %; HGB 11.8 gm/dL (13.0-17.5); Hypochromasia Marked; Lymphocytes # (A) 1.1 k/uL (1.0-4.8); Lymphocytes % (A) 4 %; MCH 28.6 pg (25.0-35.0); MCHC 29.3 g/dL (31.0-37.0); MCV 97.3 fL (80.0-100.0); Macrocytosis Slight; Mean Platelet Volume 9.3; Monocytes # (A) 2.3 k/uL (0-1.0); Monocytes % (A) 9 %; Neutrophils # (A) 21.8 k/uL (1.3-7.7); Neutrophils % (A) 86 %; Platelet Count 295 k/uL (150-450); RBC 4.12 m/uL (4.30-5.90); RDW 18.2 % (11.5-15.5); WBC 25.5 k/uL (3.8-10.6)
[2020-09-14] MEDS: SODIUM CHLORIDE 0.9% 1,000 ML IV SCH (16:49)
[2020-09-15] MEDS: HEPARIN SODIUM,PORCINE/PF 5,000 UNIT/0.5 ML SYRINGE SQ SCH ×3 (00:16→16:00)
[2020-09-15] MEDS: metroNIDAZOLE 500 MG TAB PEG/G-TUBE SCH ×3 (00:16→16:05)
[2020-09-15] MEDS: SODIUM CHLORIDE 0.9% 1,000 ML IV SCH ×3 (03:00→20:54)
[2020-09-15] MEDS: PIPERACILLIN-TAZOBACTAM 3.375 GM in SODIUM CHLORIDE 0.9% 100 ML IVPB SCH ×3 (03:18→20:40)
[2020-09-15] MEDS: MORPHINE SULFATE ER 15 MG TABLET PO SCH ×2 (07:59→20:43)
[2020-09-15] MEDS: PANTOPRAZOLE 40 MG/10 ML VIAL IV SCH ×2 (07:59→20:41)
[2020-09-15] MEDS: THIAMINE 100 MG TAB PO SCH ×2 (08:00→16:05)
[2020-09-15] MEDS: FLUCONAZOLE 100 MG TAB PEG/G-TUBE SCH (08:00)
--- NOTE | 2020-09-15 13:37 | P.PN ---
Subjective Progress Note Date: 09/15/20 CHIEF COMPLAINT: Gastric perforation with gastrointestinal cancer HISTORY OF PRESENT ILLNESS: The patient is a 70-year-old with history of gastric perforation and metastatic gastrointestinal cancer. Overnight, I was notified that the patient had increased abdominal pain. Patient is a poor candidate for any further surgical procedures. He reports that he has been having 10/10 abdominal pain for more than 3 days. Per nursing, he has been sleeping most of the time. He reports he is having bowel movements. He complains of swelling of his legs and feet. Last night, he was given fluid boluses for elevated lactic acid level and hypotension that has improved. He complains that he cannot ambulate without assistance. He reports his abdominal pain is worse with liquids, but wants to eat solid food such as a sandwich. ROS:. No fevers or chills. No new chest pain. No productive sputum PHYSICAL EXAM: VITAL SIGNS: Reviewed CONSTITUTIONAL: Well developed and in no acute distress. EYES: Conjuctivae without sclera icterus. Extraocular movements grossly intact. HEAD, EARS, NOSE, THROAT: Moist buccal mucosa. Head is atraumatic, normocephalic. Hears conversational speech. No nasal drainage. NECK: Supple. No thyroidomegaly. RESPIRATORY: Non-labored respirations and equal bilateral excursions. CARDIOVASCULAR: Palpable 2+ radial pulses. ABDOMEN: Dressing intact. CHAD present and serous. No peritonitis. MUSCULOSKELETAL: No gross deformity of the lower extremities noted. Has 2+ ashley ma lower legs bilateral. Has mottling of the bilateral knees SKIN: Good skin turgor. Well perfused. NEUROLOGIC: Cranial nerves II through XII grossly intact. No focal or lateralizing signs. PSYCH: Appropriate affect. Alert and oriented to person, place and time. CLINICAL LABS: Reviewed. Lactic acid level over 3.0 now 1.9. WBC was elevated over 25,000 ASSESSMENT: 1. Perforated stomach 2. Metastatic adenocarcinoma to liver PLAN: 1. Overall, patient has poor prognosis. Palliative care/hospice advised 2. Will advance trial diet of Movli diet. Objective - Vital Signs Vital signs: Vital Signs Temp 97.7 F 09/15/20 12:37 Pulse 112 H 09/15/20 12:37 Resp 18 09/15/20 12:37 BP 104/74 09/15/20 12:37 Pulse Ox 96 09/15/20 12:37 Intake & Output 09/14/20 09/15/20 09/15/20 18:59 06:59 18:59 Intake Total 2300 Output Total 555 805 180 Balance -555 1495 -180 Intake: Intake, IV Titration 1300 Amount Piperacillin-Tazobactam 3 100 .375 gm In Sodium Chloride 0.9% 100 ml @ 25 mls/hr IVPB Q8H [facility] Rx#: [id number] Sodium Chloride 0.9% 1, 1200 000 ml @ 100 mls/hr IV . Q10H [facility] Rx#:[id number] Oral 1000 Output: Drainage 555 480 180 Right Abdomen 555 480 180 Urine 325 Other: Voiding Method Indwelling Catheter Indwelling Catheter Indwelling Catheter # Bowel Movements 1 1 - Labs CBC & Chem 7: 09/14/20 16:01 09/14/20 16:01 Labs: Abnormal Lab Results - Last 24 Hours (Table) 09/14/20 09/14/20 09/14/20 Range/Units 16:01 16:01 16:01 WBC 25.5 H (3.8-10.6) k/uL RBC 4.12 L (4.30-5.90) m/uL Hgb 11.8 L (13.0-17.5) gm/dL MCHC 29.3 L (31.0-37.0) g/dL RDW 18.2 H (11.5-15.5) % Neutrophils # 21.8 H (1.3-7.7) k/uL Monocytes # 2.3 H (0-1.0) k/uL Sodium 136 L (137-145) mmol/L Potassium 3.3 L (3.5-5.1) mmol/L Chloride 110 H (98-107) mmol/L Carbon Dioxide 15 L (22-30) mmol/L BUN 28 H (9-20) mg/dL Glucose 134 H (74-99) mg/dL Plasma Lactic Acid Tommy 4.3 H* (0.7-2.0) mmol/L Calcium 7.6 L (8.4-10.2) mg/dL 09/14/20 09/14/20 Range/Units 20:40 23:31 WBC (3.8-10.6) k/uL RBC (4.30-5.90) m/uL Hgb (13.0-17.5) gm/dL MCHC (31.0-37.0) g/dL RDW (11.5-15.5) % Neutrophils # (1.3-7.7) k/uL Monocytes # (0-1.0) k/uL Sodium (137-145) mmol/L Potassium (3.5-5.1) mmol/L Chloride (98-107) mmol/L Carbon Dioxide (22-30) mmol/L BUN (9-20) mg/dL Glucose (74-99) mg/dL Plasma Lactic Acid Tommy 3.3 H* 2.9 H* (0.7-2.0) mmol/L Calcium (8.4-10.2) mg/dL Assessment and Plan (1) Metastatic adenocarcinoma to liver with unknown primary site Current Visit: Yes Status: Acute Code(s): C78.7 - SECONDARY MALIG NEOPLASM OF LIVER AND INTRAHEPATIC BILE DUCT; C80.1 - MALIGNANT (PRIMARY) NEOPLASM, UNSPECIFIED SNOMED Code(s): 6083365422417 (2) Free intraperitoneal air Current Visit: Yes Status: Acute Code(s): K66.8 - OTHER SPECIFIED DISORDERS OF PERITONEUM SNOMED Code(s): 27689163 (3) Perforated gastric ulcer Current Visit: Yes Status: Acute Code(s): K25.5 - CHRONIC OR UNSPECIFIED GASTRIC ULCER WITH PERFORATION SNOMED Code(s): 9143767
[2020-09-15 15:39] LABS: Amorphous Sediment,Urine Occasional /hpf; Appearance,Urine Turbid (Clear); Bilirubin,Urine 1+ (Negative); Blood,Urine Small (Negative); Color,Urine Dark Brown; Glucose,Urine (UA) Negative (Negative); Hyaline Casts,Urine 1 /lpf (0-2); Ketones,Urine Negative (Negative); Leukocyte Esterase,Urine Small (Negative); Mucus,Urine Rare /hpf; Nitrite,Urine Negative (Negative); PH, Urine 5.5 (5.0-8.0); Protein,Urine 1+ (Negative); RBC,Urine 30 /hpf (0-5); Specific Gravity,Urine 1.033 (1.001-1.035); Squamous Epithelial Cell,Urine <1 /hpf (0-4); Urobilinogen,Urine <2.0 mg/dL (<2.0); WBC,Urine 14 /hpf (0-5)
[2020-09-15] MEDS: HYDROmorphone 1 MG/ML 1 ML SYRINGE IVP PRN (16:01)
--- NOTE | 2020-09-15 18:27 | P.PN ---
Subjective Progress Note Date: 09/15/20 Principal diagnosis: Gastric Cancer Discussed with Nursing today, patient has been lethargic, increased sediment drainage, undocumented fever >100, tachycardic and hypotensive. 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 I have called his son Alexandre, we discussed and re-discussed goals of care and his clinical concerning appearance. He is getting off work and headed up to hospital. He is realistic and Objective - Vital Signs Vital signs: Vital Signs Temp 97.7 F 09/15/20 12:37 Pulse 112 H 09/15/20 12:37 Resp 18 09/15/20 12:37 BP 104/74 09/15/20 12:37 Pulse Ox 96 09/15/20 12:37 Intake & Output 09/14/20 09/15/20 09/15/20 18:59 06:59 18:59 Intake Total 2300 Output Total 555 805 500 Balance -555 1495 -500 Intake: Intake, IV Titration 1300 Amount Piperacillin-Tazobactam 3 100 .375 gm In Sodium Chloride 0.9% 100 ml @ 25 mls/hr IVPB Q8H [facility] Rx#: [id number] Sodium Chloride 0.9% 1, 1200 000 ml @ 100 mls/hr IV . Q10H [facility] Rx#:[id number] Oral 1000 Output: Drainage 555 480 500 Right Abdomen 555 480 500 Urine 325 Other: Voiding Method Indwelling Catheter Indwelling Catheter Indwelling Catheter # Bowel Movements 1 1 - Exam - Constitutional General appearance: Present: no acute distress - EENT Eyes: Present: EOMI ENT: Present: hearing grossly normal, normal oropharynx - Respiratory Respiratory: bilateral: CTA - Cardiovascular Rhythm: regular Heart sounds: normal: S1, S2 - Gastrointestinal General gastrointestinal: Present: absent bowel sounds, soft +tender - Integumentary Integumentary: Present: normal - Neurologic Neurologic: Present: CNII-XII intact - Musculoskeletal Musculoskeletal: Present: generalized weakness, strength equal bilaterally - Psychiatric Psychiatric: Present: A&O x's 3, appropriate affect - Labs CBC & Chem 7: 09/14/20 16:01 09/14/20 16:01 Labs: Abnormal Lab Results - Last 24 Hours (Table) 09/14/20 09/14/20 09/15/20 Range/Units 20:40 23:31 14:57 Plasma Lactic Acid Tommy 3.3 H* 2.9 H* 2.5 H* (0.7-2.0) mmol/L Urine Protein (Negative) Urine Blood (Negative) Urine Bilirubin (Negative) Ur Leukocyte Esterase (Negative) Urine RBC (0-5) /hpf Urine WBC (0-5) /hpf Amorphous Sediment (None) /hpf Urine Mucus (None) /hpf 09/15/20 Range/Units 15:00 Plasma Lactic Acid Tommy (0.7-2.0) mmol/L Urine Protein 1+ H (Negative) Urine Blood Small H (Negative) Urine Bilirubin 1+ H (Negative) Ur Leukocyte Esterase Small H (Negative) Urine RBC 30 H (0-5) /hpf Urine WBC 14 H (0-5) /hpf Amorphous Sediment Occasional H (None) /hpf Urine Mucus Rare H (None) /hpf Assessment and Plan Plan: Assessment and Plan Liver lesion Narrative/Plan: - Upper GI source are shown in results of pathology from intraoperative biopsy of liver nodules that were palpated during surgery. - Time to heal is minimum 3-4 weeks assuming no postop complications prior to options for systemic treatment. - Will send for further characterizing with Biomarker testing Current Visit: Yes Status: Acute Code(s): K76.9 - LIVER DISEASE, UNSPECIFIED SNOMED Code(s): 357061609 Perforated gastric ulcer Narrative/Plan: - S/P intervention surgery Current Visit: Yes Status: Acute Code(s): K25.5 - CHRONIC OR UNSPECIFIED GASTRIC ULCER WITH PERFORATION SNOMED Code(s): 5121006 Anemia Narrative/Plan: - IV Iron x3 days and hemoglobin improved, 10 today - Transfuse for hemoglobin less than 7 Current Visit: Yes Status: Acute Code(s): D64.9 - ANEMIA, UNSPECIFIED SNOMED Code(s): 944777268 Follow-up in office next week Biomarker testing on pathology for treatment plan options ordered Patient appears to be declining today and yesterday, discussed with Dr. Fitzpatrick and with RN and son Alexandre. Patient is a no cpr, hospice is resonable.
--- NOTE | 2020-09-15 22:18 | XR ---
EXAMINATION TYPE: XR abdomen acute w cxr DATE OF EXAM: 09/15/2020 COMPARISON: Chest x-ray 05/02/2015 HISTORY: Sepsis. Abdominal pain. TECHNIQUE: 4 views FINDINGS: There is some blunting of the costophrenic angles. There is mild atelectasis at the lung ba ses. There is drainage catheter over the upper abdomen. There are skin kb over the midline lower abdomen. There is no evidence of a bowel obstruction. There is no free air. There is gas down to the rectum. Large bowel gas pattern is normal. I see no evidence of free air. IMPRESSION: Pleural reaction and atelectasis at the lung bases is new compared to old exam. No sign of acute abnormality within the abdomen pelvis.
[2020-09-16] MEDS: metroNIDAZOLE 500 MG TAB PEG/G-TUBE SCH ×3 (00:26→16:20)
[2020-09-16] MEDS: HEPARIN SODIUM,PORCINE/PF 5,000 UNIT/0.5 ML SYRINGE SQ SCH ×3 (00:26→15:45)
[2020-09-16] MEDS: HYDROmorphone 0.5 MG/0.5 ML SYRINGE IVP PRN (00:34)
[2020-09-16] MEDS: PIPERACILLIN-TAZOBACTAM 3.375 GM in SODIUM CHLORIDE 0.9% 100 ML IVPB SCH ×3 (03:27→18:35)
[2020-09-16 06:11] LABS: Anisocytosis Slight; Basophils % (A) 0 %; Eosinophils % (A) 0 %; HCT 39.9 % (39.0-53.0); HGB 11.7 gm/dL (13.0-17.5); Hypochromasia Marked; Lymphocytes # (A) 0.8 k/uL (1.0-4.8); Lymphocytes % (A) 3 %; MCH 29.1 pg (25.0-35.0); MCHC 29.4 g/dL (31.0-37.0); Macrocytosis Moderate; Mean Platelet Volume 9.1; Monocytes # (A) 1.7 k/uL (0-1.0); Monocytes % (A) 7 %; Neutrophils # (A) 21.8 k/uL (1.3-7.7); Neutrophils % (A) 89 %; Platelet Count 360 k/uL (150-450); RBC 4.04 m/uL (4.30-5.90); RDW 19.4 % (11.5-15.5); WBC 24.5 k/uL (3.8-10.6)
[2020-09-16] MEDS: FLUCONAZOLE 100 MG TAB PEG/G-TUBE SCH (07:43)
[2020-09-16] MEDS: PANTOPRAZOLE 40 MG/10 ML VIAL IV SCH ×2 (07:43→20:18)
[2020-09-16] MEDS: THIAMINE 100 MG TAB PO SCH ×2 (07:43→15:45)
[2020-09-16] MEDS: SODIUM CHLORIDE 0.9% 1,000 ML IV SCH ×2 (07:44→16:21)
[2020-09-16] MEDS: MORPHINE SULFATE ER 15 MG TABLET PO SCH ×2 (07:44→20:19)
[2020-09-16 09:24] LABS: African American GFR (CKD) 64.5 (60.0-200.0); Albumin 2.3 g/dL (3.80-4.90); Albumin/Globulin Ratio 0.96 (1.60-3.17); Anion Gap 11.6 mmol/L (4.00-12.00); BUN/Creat Ratio 24.62 Ratio (12.00-20.00); Calcium 7.5 mg/dL (8.7-10.3); Carbon Dioxide 19.4 mmol/L (21.6-31.8); Globulin 2.4 g/dL (1.6-3.3); Non-African American GFR(CKD) 55.7 (60.0-200.0); Potassium 4.4 mmol/L (3.5-5.5); Total Bilirubin 3.4 mg/dL (0.2-1.2); Total Protein 4.7 g/dL (6.2-8.2)
[2020-09-16] MEDS: HYDROmorphone 1 MG/ML 1 ML SYRINGE IVP PRN ×3 (11:15→18:35)
--- NOTE | 2020-09-16 11:26 | P.PN ---
<Carol Childress - Last Filed: 09/16/20 11:17> Subjective Progress Note Date: 09/16/20 CHIEF COMPLAINT: Perforated gastric ulcer HISTORY OF PRESENT ILLNESS: Patient is status post exploratory laparotomy, repair of perforated gastric ulcer and biopsy of liver mass on 09/05/20. Patient is complaining of same abdominal pain. He is having diarrhea. Denies any nausea or vomiting. Currently on regular diet. WBC has come down from 25.5- 24.5. Afebrile. Heart rate 110. CHAD drain serosanguineous output. Patient still having large volume of CHAD drain. Patient's overall condition is poor and guarded. He is currently a no code. Patient states that he is going to talk to his son today about possibly proceeding with hospice or comfort care. The pathology from the liver biopsy shows metastatic adenocarcinoma. Oncology is following. Abdominal x-ray shows pleural reaction atelectasis lung bases is new compared to old exam. No signs of acute abnormality within the abdomen and pelvis. PHYSICAL EXAM: VITAL SIGNS: Reviewed. GENERAL: Well-developed in no acute distress. HEENT: No sclera icterus. Extraocular movements grossly intact. Moist buccal mucosa. Head is atraumatic, normocephalic. ABDOMEN: Soft. distended. Incision clean dry and intact. CHAD drain serosanguineous output NEUROLOGIC: Alert and oriented. Cranial nerves II through XII grossly intact. ASSESSMENT: 1. Perforated gastric ulcer status post exploratory laparotomy, repair of perforated gastric ulcer and biopsy of liver mass 2. Pathology from the liver biopsy shows metastatic adenocarcinoma PLAN: -Continue heart healthy diet -Continue antibiotics -Consult PT OT -Encouraged patient to use incentive spirometer -Encouraged patient to ambulate -Continue GI and DVT prophylaxis -CODE STATUS DO NOT RESUSCITATE Physician Senior Oracle Database Administrator note has been reviewed by physician. Signing provider agrees with the documented findings, assessment, and plan of care. Objective - Vital Signs Vital signs: Vital Signs Temp 97.6 F 09/16/20 08:08 Pulse 110 H 09/16/20 08:08 Resp 14 09/16/20 08:08 BP 115/84 09/16/20 08:08 Pulse Ox 98 09/16/20 08:08 Intake & Output 09/15/20 09/16/20 09/16/20 18:59 06:59 18:59 Intake Total 240 1300 Output Total 600 850 165 Balance -360 450 -165 Intake: IV 200 Piperacillin-Tazobactam 3 200 .375 gm In Sodium Chloride 0.9% 100 ml @ 25 mls/hr IVPB Q8H [facility]END[facility] TO [facility] Rx#: [id number] Intake, IV Titration 1100 Amount Sodium Chloride 0.9% 1, 1100 000 ml @ 100 mls/hr IV . Q10H [facility] Rx#:[id number] Oral 240 Output: Gastric Drainage 50 Drainage 600 350 165 Right Abdomen 600 350 165 Urine 450 Other: Voiding Method Indwelling Catheter Indwelling Catheter # Bowel Movements 0 1 - Labs CBC & Chem 7: 09/16/20 05:42 09/16/20 05:42 Labs: Abnormal Lab Results - Last 24 Hours (Table) 09/15/20 09/15/20 09/15/20 Range/Units 14:57 15:00 18:11 WBC (3.8-10.6) k/uL RBC (4.30-5.90) m/uL Hgb (13.0-17.5) gm/dL MCHC (31.0-37.0) g/dL RDW (11.5-15.5) % Neutrophils # (1.3-7.7) k/uL Lymphocytes # (1.0-4.8) k/uL Monocytes # (0-1.0) k/uL Carbon Dioxide (21.6-31.8) mmol/L BUN (9.0-27.0) mg/dL Est GFR (CKD-EPI)NonAf (60.0-200.0) BUN/Creatinine Ratio (12.00-20.00) Ratio Plasma Lactic Acid Tommy 2.5 H* 3.0 H* (0.7-2.0) mmol/L Calcium (8.7-10.3) mg/dL Total Bilirubin (0.2-1.2) mg/dL AST (14-35) U/L ALT (10-49) U/L Alkaline Phosphatase (41-126) U/L Total Protein (6.2-8.2) g/dL Albumin (3.80-4.90) g/dL Albumin/Globulin Ratio (1.60-3.17) g/dL Urine Protein 1+ H (Negative) Urine Blood Small H (Negative) Urine Bilirubin 1+ H (Negative) Ur Leukocyte Esterase Small H (Negative) Urine RBC 30 H (0-5) /hpf Urine WBC 14 H (0-5) /hpf Amorphous Sediment Occasional H (None) /hpf Urine Mucus Rare H (None) /hpf 09/16/20 09/16/20 Range/Units 05:42 05:42 WBC 24.5 H (3.8-10.6) k/uL RBC 4.04 L (4.30-5.90) m/uL Hgb 11.7 L (13.0-17.5) gm/dL MCHC 29.4 L (31.0-37.0) g/dL RDW 19.4 H (11.5-15.5) % Neutrophils # 21.8 H (1.3-7.7) k/uL Lymphocytes # 0.8 L (1.0-4.8) k/uL Monocytes # 1.7 H (0-1.0) k/uL Carbon Dioxide 19.4 L (21.6-31.8) mmol/L BUN 32.0 H (9.0-27.0) mg/dL Est GFR (CKD-EPI)NonAf 55.7 L (60.0-200.0) BUN/Creatinine Ratio 24.62 H (12.00-20.00) Ratio Plasma Lactic Acid Tommy (0.7-2.0) mmol/L Calcium 7.5 L (8.7-10.3) mg/dL Total Bilirubin 3.4 H (0.2-1.2) mg/dL AST 319 H (14-35) U/L ALT 147 H (10-49) U/L Alkaline Phosphatase 1008 H (41-126) U/L Total Protein 4.7 L (6.2-8.2) g/dL Albumin 2.30 L (3.80-4.90) g/dL Albumin/Globulin Ratio 0.96 L (1.60-3.17) g/dL Urine Protein (Negative) Urine Blood (Negative) Urine Bilirubin (Negative) Ur Leukocyte Esterase (Negative) Urine RBC (0-5) /hpf Urine WBC (0-5) /hpf Amorphous Sediment (None) /hpf Urine Mucus (None) /hpf <Vito Schwartz - Last Filed: 09/16/20 15:55> Subjective As above. Patient still having pain. Apparently was bad over the weekend. He is tolerating solid foods. CHAD drain is serous. Yesterday's x-ray shows no pneumoperitoneum. Continue diet as tolerated. Continue antibiotics. Extent of care discussions with the patient again took place. Continue no code/CPR. Objective - Vital Signs Vital signs: Vital Signs Temp 97.5 F L 09/16/20 11:32 Pulse 117 H 09/16/20 11:32 Resp 14 09/16/20 11:32 BP 107/69 09/16/20 11:32 Pulse Ox 96 09/16/20 11:32 Intake & Output 09/15/20 09/16/20 09/16/20 18:59 06:59 18:59 Intake Total 240 1300 Output Total 600 850 205 Balance -360 450 -205 Weight 79.2 kg Intake: IV 200 Piperacillin-Tazobactam 3 200 .375 gm In Sodium Chloride 0.9% 100 ml @ 25 mls/hr IVPB Q8H [facility] Rx#: [id number] Intake, IV Titration 1100 Amount Sodium Chloride 0.9% 1, 1100 000 ml @ 100 mls/hr IV . Q10H [facility] Rx#:[id number] Oral 240 Output: Gastric Drainage 50 Drainage 600 350 205 Right Abdomen 600 350 205 Urine 450 Other: Voiding Method Indwelling Catheter Indwelling Catheter # Bowel Movements 0 1 - Labs CBC & Chem 7: 09/16/20 05:42 09/16/20 05:42 Labs: Abnormal Lab Results - Last 24 Hours (Table) 09/15/20 09/16/20 09/16/20 Range/Units 18:11 05:42 05:42 WBC 24.5 H (3.8-10.6) k/uL RBC 4.04 L (4.30-5.90) m/uL Hgb 11.7 L (13.0-17.5) gm/dL MCHC 29.4 L (31.0-37.0) g/dL RDW 19.4 H (11.5-15.5) % Neutrophils # 21.8 H (1.3-7.7) k/uL Lymphocytes # 0.8 L (1.0-4.8) k/uL Monocytes # 1.7 H (0-1.0) k/uL Carbon Dioxide 19.4 L (21.6-31.8) mmol/L BUN 32.0 H (9.0-27.0) mg/dL Est GFR (CKD-EPI)NonAf 55.7 L (60.0-200.0) BUN/Creatinine Ratio 24.62 H (12.00-20.00) Ratio Plasma Lactic Acid Tommy 3.0 H* (0.7-2.0) mmol/L Calcium 7.5 L (8.7-10.3) mg/dL Total Bilirubin 3.4 H (0.2-1.2) mg/dL AST 319 H (14-35) U/L ALT 147 H (10-49) U/L Alkaline Phosphatase 1008 H (41-126) U/L Total Protein 4.7 L (6.2-8.2) g/dL Albumin 2.30 L (3.80-4.90) g/dL Albumin/Globulin Ratio 0.96 L (1.60-3.17) g/dL Assessment and Plan (1) Free intraperitoneal air Current Visit: Yes Status: Acute Code(s): K66.8 - OTHER SPECIFIED DISORDERS OF PERITONEUM SNOMED Code(s): 94550692
--- NOTE | 2020-09-16 12:39 | P.PN ---
Subjective Progress Note Date: 09/16/20 Perforated gastric ulcer/mass; status post repair Multiple liver lesions 70-year-old male with history of seizure disorder, coronary artery disease and previous SD, history of alcohol withdrawal seizures, patient is maintained on Keppra. Patient presented to the hospital with acute onset of abdominal pain described the pain in the upper abdomen started the morning he presented to the hospital. Pain has become very severe, described it as 10 out of 10. Patient had no previous history of peptic ulcer disease. CT of the abdomen and pelvis and chest x-ray showed no pneumoperitoneum. Patient was also noted to have multiple liver lesions consistent with metastatic disease to the liver. Patient was seen by Dr. bowers on consultation and he was taken straight from the ER to the OR, underwent exploratory laparotomy, repair of perforated gastric ulcer and underwent biopsy of liver mass. Postoperatively, patient was intubated and mechanically ventilated and was sent to the ICU Patient was successfully extubated this morning and is maintaining O2 saturation above 95% on 4 L 09/07/2020 patient is seen and evaluated on medical floor; was extubated yesterday, he is on 2 L nasal cannula, and his O2 saturations in the 90s, patient has no shortness of breath no cough no wheezing, however he has some vague abdominal discomfort. Patient had a PICC line placed yesterday, and the plan is to start patient on TPN and he will be not be orally fed for quite some time as per surgery on the case. CBC is relatively normal today hemoglobin is down to 9.3. Electrodes are normal renal profile is normal liver enzymes remain elevated. Patient will be monitored closely for alcohol withdrawal 09/08/2020 Patient is seen and evaluated on 5 N.; transferred out of ICU yesterday; continues to report feeling bloated; patient has NG tube in place and continues to have clear output Vital signs are reviewed and reveal temperature of 98.1, pulse 74, respirations 16 and blood pressure of 118/78 Patient remains nothing by mouth; surgery recommending to decrease amount of ice chips and water Pathology report is pending; plan is to consult oncology for further evaluation once biopsy is available 09/09/2020 Patient is seen this morning and per nursing staff patient was confused in the middle of the night and took out his NG tube, PICC line, and part of his Guajardo catheter and when talking with the patient he does not recall any of this happening. Following along closely with surgery as patient recently underwent exploratory laparotomy with repair of a perfect related gastric ulcer and was noted to have multiple liver lesions with biopsies obtained which are pending. Oncology consulted and following. Patient denies any chest pain or shortness of breath and continues to have abdominal discomfort. Patient denies bowel movement at this time but is reporting gas. Increased amount of serosanguineous drainage from the CHAD drain was also noted today. White blood count is 9.9, hemoglobin is 8.8, current sodium is 143 with a potassium of 4.1 and current creatinine is 0.6. 09/10/2020 Patient is seen in follow-up this morning continues to have abdominal discomfort states it is somewhat improved. Bowel sounds noted and patient is passing gas but no reports of bowel movement at this time. This morning patient did have NG tube although was discontinued by surgery. Pathology report of the liver biopsy came back today and is positive for metastatic adenocarcinoma with enteric differentiation and oncology is following. White blood count today is 10.2 with hemoglobin of 9.2, current sodium is 144 with a potassium of 3.8 and creatinine is 0.6. Will continue gentle IV hydration decrease the dose to 50 mL per hour and repeat a.m. labs. Will continue to follow along with surgery during hospitalization. 09/11/2020 Patient is seen in follow-up continues to have abdominal pain and states he is passing gas and has had a bowel movement and is being started on clear liquids by surgery. White blood count slightly elevated at 12.2 hemoglobin is stable at 10.0, sodium is 141 with a potassium of 4.0 and current creatinine is 0.68. Iron studies were low and patient is receiving IV iron infusions. Oncology also following and will be following up closely in the outpatient setting for further testing. Patient is extremely weak and will have PT/OT evaluate the patient. 09/12/2020 Patient is seen in follow-up this morning and is continued on clear liquids and eating very little and continues with abdominal discomfort. Patient states he is passing gas and having bowel movements. Patient continues to be extremely weak and will be evaluated by PT/OT therapy as he will likely require rehab upon discharge for strength and mobility. Oncology also following and having biomarkers done on pathology to determine treatment options in the outpatient setting. Patient is status post iron transfusions and hemoglobin today is 10.8. Patient continues on IV antibiotics and white blood count slightly elevated today at 16.4. Patient is maintained on CIWA protocol as he has a history of alcohol abuse and we'll transition to oral as he received a dose of IV Ativan again today and becomes more confused and altered with that. This was discussed with the admitting service. 09/13/2020 Patient is seen in follow-up continues to have large amounts of output noted in the CHAD drain and is being closely monitored. White blood count elevated today at 18.1 and maintained on IV antibiotics and will continue. Patient continues with clear liquid diet and tolerating although not much of an appetite. Patient is working with physical therapy and continues to be weak. Will continue to follow along with surgery 09/14/2020 patient is admitted after a perforated peptic ulcer, patient also found to have multiple lesions in the liver found to have, primary is unknown yet.patient is u rine output is bit low today. Patient will be started on IV fluids. Patient looks bit lethargic tired.Postoperatively patient was intubated 6 seconds J extubated presently on a medical and surgical floor. 09/16/2020 Patient is evaluated this morning lethargic although arousable white count is up to 24.5 and hemoglobin is stable 11.7, sodium 137 with a potassium of 4.4 creatinine elevated at 1.3 and lactic acid has improved and is currently 1.7. Bilirubin is 3.4 and liver functions are trending upwards. Patient continues to be on Diflucan and IV Zosyn with infectious disease following. CODE STATUS was made no code and family along with patient discussing possible hospice. Oncology and surgery following. Continue gentle IV hydration. Patient is afebrile. Continued large amounts of bilious drainage noted in the CHAD drain. Review of systems: Constitutional: reports of fatigue, fever, or chills Cardiovascular: No reports of chest pain or palpitations Respiratory: No reports of shortness of breath or cough GI: Reports continued abdominal discomfort at the surgical site and is passing gas with reported bowel movements : No reports of dysuria or retention Neurovascular: Reports generalized weakness All medications have been reviewed Objective - Vital Signs Vital signs: Vital Signs Temp 97.5 F L 09/16/20 11:32 Pulse 117 H 09/16/20 11:32 Resp 14 09/16/20 11:32 BP 107/69 09/16/20 11:32 Pulse Ox 96 09/16/20 11:32 Intake & Output 09/15/20 09/16/20 09/16/20 18:59 06:59 18:59 Intake Total 240 1300 Output Total 600 850 165 Balance -360 450 -165 Intake: IV 200 Piperacillin-Tazobactam 3 200 .375 gm In Sodium Chloride 0.9% 100 ml @ 25 mls/hr IVPB Q8H [facility] Rx#: [id number] Intake, IV Titration 1100 Amount Sodium Chloride 0.9% 1, 1100 000 ml @ 100 mls/hr IV . Q10H [facility] Rx#:[id number] Oral 240 Output: Gastric Drainage 50 Drainage 600 350 165 Right Abdomen 600 350 165 Urine 450 Other: Voiding Method Indwelling Catheter Indwelling Catheter # Bowel Movements 0 1 - Exam Physical Exam: This is a 70-year-old male in no distress. Sleeping although arousable. Thin built, ill appearing, On room air Head: Atraumatic, normocephalic. ENT: PERRLA, EOMI, no neck masses, no thyromegaly, moist mucous membranes. NG tube has been discontinued by surgery Chest: Symmetrical chest expansion, diminished breath sounds at the bases with no crackles or rhonchi or wheezes.. Cardiac Exam: S1, S2 are present, intermittent periods of tachycardia Abdomen: Soft, mildly tender around the midline incision site with CHAD drain noted with continued large amounts of bilious drainage noted, bowel sounds noted Extremities: No clubbing, no edema, no cyanosis. Good pulses bilaterally. Musculoskeletal: No deformities. Neurological Exam: Alert and oriented 3 focal deficits. Diffusely weak Psychiatric: Normal mood affect and normal mental status examination. Skin: No rashes - Labs CBC & Chem 7: 09/16/20 05:42 09/16/20 05:42 Labs: Abnormal Lab Results - Last 24 Hours (Table) 09/15/20 09/15/20 09/15/20 Range/Units 14:57 15:00 18:11 WBC (3.8-10.6) k/uL RBC (4.30-5.90) m/uL Hgb (13.0-17.5) gm/dL MCHC (31.0-37.0) g/dL RDW (11.5-15.5) % Neutrophils # (1.3-7.7) k/uL Lymphocytes # (1.0-4.8) k/uL Monocytes # (0-1.0) k/uL Carbon Dioxide (21.6-31.8) mmol/L BUN (9.0-27.0) mg/dL Est GFR (CKD-EPI)NonAf (60.0-200.0) BUN/Creatinine Ratio (12.00-20.00) Ratio Plasma Lactic Acid Tommy 2.5 H* 3.0 H* (0.7-2.0) mmol/L Calcium (8.7-10.3) mg/dL Total Bilirubin (0.2-1.2) mg/dL AST (14-35) U/L ALT (10-49) U/L Alkaline Phosphatase (41-126) U/L Total Protein (6.2-8.2) g/dL Albumin (3.80-4.90) g/dL Albumin/Globulin Ratio (1.60-3.17) g/dL Urine Protein 1+ H (Negative) Urine Blood Small H (Negative) Urine Bilirubin 1+ H (Negative) Ur Leukocyte Esterase Small H (Negative) Urine RBC 30 H (0-5) /hpf Urine WBC 14 H (0-5) /hpf Amorphous Sediment Occasional H (None) /hpf Urine Mucus Rare H (None) /hpf 09/16/20 09/16/20 Range/Units 05:42 05:42 WBC 24.5 H (3.8-10.6) k/uL RBC 4.04 L (4.30-5.90) m/uL Hgb 11.7 L (13.0-17.5) gm/dL MCHC 29.4 L (31.0-37.0) g/dL RDW 19.4 H (11.5-15.5) % Neutrophils # 21.8 H (1.3-7.7) k/uL Lymphocytes # 0.8 L (1.0-4.8) k/uL Monocytes # 1.7 H (0-1.0) k/uL Carbon Dioxide 19.4 L (21.6-31.8) mmol/L BUN 32.0 H (9.0-27.0) mg/dL Est GFR (CKD-EPI)NonAf 55.7 L (60.0-200.0) BUN/Creatinine Ratio 24.62 H (12.00-20.00) Ratio Plasma Lactic Acid Tommy (0.7-2.0) mmol/L Calcium 7.5 L (8.7-10.3) mg/dL Total Bilirubin 3.4 H (0.2-1.2) mg/dL AST 319 H (14-35) U/L ALT 147 H (10-49) U/L Alkaline Phosphatase 1008 H (41-126) U/L Total Protein 4.7 L (6.2-8.2) g/dL Albumin 2.30 L (3.80-4.90) g/dL Albumin/Globulin Ratio 0.96 L (1.60-3.17) g/dL Urine Protein (Negative) Urine Blood (Negative) Urine Bilirubin (Negative) Ur Leukocyte Esterase (Negative) Urine RBC (0-5) /hpf Urine WBC (0-5) /hpf Amorphous Sediment (None) /hpf Urine Mucus (None) /hpf Assessment and Plan Assessment: Perforated gastric ulcer status post exploratory laparotomy with repair of the ulcer Multiple liver lesions: Suspicious for metastatic disease status post biopsy , oncology following Metastatic adenocarcinoma with enteric differentiation as noted on liver biopsy Seizure disorder, continue with home medications of Keppra 1500 mg twice daily History of alcoholism, continue to monitor for any signs of alcohol withdrawal and will transition to lower dose oral Ativan as needed as he becomes more altered and confused with IV Ativan COPD, not in acute exacerbation DVT prophylaxis: Heparin subcutaneous GI prophylaxis: No Code Plan: Continue with current medications. Patient is maintained on Zosyn along with Diflucan to continue. White blood count trending up at 24.5 with infectious disease following. Patient continues on heart healthy diet and tolerating and continues to have abdominal discomfort at the surgical site. Patient is maintained on CIWA protocol for his EtOH history and continue with when necessary oral as needed. Liver biopsy was positive for metastatic adenocarcinoma with enteric differentiation. Will need close outpatient follow up with oncology. Patient's CODE STATUS was changed to no code and discussing possible hospice with family. PT/OT to follow as he continues to be extremely weak. Patient will likely require rehab upon discharge for continued strength and mobility. Will continue to follow along with surgery during hospitalization. Repeat a.m. labs.
--- NOTE | 2020-09-16 13:46 | P.PN ---
Subjective Progress Note Date: 09/16/20 Principal diagnosis: Gastric Cancer CLinically improved today, spoke with patient and son about realistic expectations and goals of care yesterday. Objective - Vital Signs Vital signs: Vital Signs Temp 97.5 F L 09/16/20 11:32 Pulse 117 H 09/16/20 11:32 Resp 14 09/16/20 11:32 BP 107/69 09/16/20 11:32 Pulse Ox 96 09/16/20 11:32 Intake & Output 09/15/20 09/16/20 09/16/20 18:59 06:59 18:59 Intake Total 240 1300 Output Total 600 850 205 Balance -360 450 -205 Weight 79.2 kg Intake: IV 200 Piperacillin-Tazobactam 3 200 .375 gm In Sodium Chloride 0.9% 100 ml @ 25 mls/hr IVPB Q8H [facility] Rx#: [id number] Intake, IV Titration 1100 Amount Sodium Chloride 0.9% 1, 1100 000 ml @ 100 mls/hr IV . Q10H [facility] Rx#:[id number] Oral 240 Output: Gastric Drainage 50 Drainage 600 350 205 Right Abdomen 600 350 205 Urine 450 Other: Voiding Method Indwelling Catheter Indwelling Catheter # Bowel Movements 0 1 - Exam - Constitutional General appearance: Present: no acute distress - EENT Eyes: Present: EOMI ENT: Present: hearing grossly normal, normal oropharynx - Respiratory Respiratory: bilateral: CTA - Cardiovascular Rhythm: regular Heart sounds: normal: S1, S2 - Gastrointestinal General gastrointestinal: Present: absent bowel sounds, soft +tender - Integumentary Integumentary: Present: normal - Neurologic Neurologic: Present: CNII-XII intact - Musculoskeletal Musculoskeletal: Present: generalized weakness, strength equal bilaterally - Psychiatric Psychiatric: Present: A&O x's 3, appropriate affect - Labs CBC & Chem 7: 09/16/20 05:42 09/16/20 05:42 Labs: Abnormal Lab Results - Last 24 Hours (Table) 09/15/20 09/15/20 09/15/20 Range/Units 14:57 15:00 18:11 WBC (3.8-10.6) k/uL RBC (4.30-5.90) m/uL Hgb (13.0-17.5) gm/dL MCHC (31.0-37.0) g/dL RDW (11.5-15.5) % Neutrophils # (1.3-7.7) k/uL Lymphocytes # (1.0-4.8) k/uL Monocytes # (0-1.0) k/uL Carbon Dioxide (21.6-31.8) mmol/L BUN (9.0-27.0) mg/dL Est GFR (CKD-EPI)NonAf (60.0-200.0) BUN/Creatinine Ratio (12.00-20.00) Ratio Plasma Lactic Acid Tommy 2.5 H* 3.0 H* (0.7-2.0) mmol/L Calcium (8.7-10.3) mg/dL Total Bilirubin (0.2-1.2) mg/dL AST (14-35) U/L ALT (10-49) U/L Alkaline Phosphatase (41-126) U/L Total Protein (6.2-8.2) g/dL Albumin (3.80-4.90) g/dL Albumin/Globulin Ratio (1.60-3.17) g/dL Urine Protein 1+ H (Negative) Urine Blood Small H (Negative) Urine Bilirubin 1+ H (Negative) Ur Leukocyte Esterase Small H (Negative) Urine RBC 30 H (0-5) /hpf Urine WBC 14 H (0-5) /hpf Amorphous Sediment Occasional H (None) /hpf Urine Mucus Rare H (None) /hpf 09/16/20 09/16/20 Range/Units 05:42 05:42 WBC 24.5 H (3.8-10.6) k/uL RBC 4.04 L (4.30-5.90) m/uL Hgb 11.7 L (13.0-17.5) gm/dL MCHC 29.4 L (31.0-37.0) g/dL RDW 19.4 H (11.5-15.5) % Neutrophils # 21.8 H (1.3-7.7) k/uL Lymphocytes # 0.8 L (1.0-4.8) k/uL Monocytes # 1.7 H (0-1.0) k/uL Carbon Dioxide 19.4 L (21.6-31.8) mmol/L BUN 32.0 H (9.0-27.0) mg/dL Est GFR (CKD-EPI)NonAf 55.7 L (60.0-200.0) BUN/Creatinine Ratio 24.62 H (12.00-20.00) Ratio Plasma Lactic Acid Tommy (0.7-2.0) mmol/L Calcium 7.5 L (8.7-10.3) mg/dL Total Bilirubin 3.4 H (0.2-1.2) mg/dL AST 319 H (14-35) U/L ALT 147 H (10-49) U/L Alkaline Phosphatase 1008 H (41-126) U/L Total Protein 4.7 L (6.2-8.2) g/dL Albumin 2.30 L (3.80-4.90) g/dL Albumin/Globulin Ratio 0.96 L (1.60-3.17) g/dL Urine Protein (Negative) Urine Blood (Negative) Urine Bilirubin (Negative) Ur Leukocyte Esterase (Negative) Urine RBC (0-5) /hpf Urine WBC (0-5) /hpf Amorphous Sediment (None) /hpf Urine Mucus (None) /hpf Assessment and Plan Plan: Assessment and Plan Liver lesion Narrative/Plan: - Upper GI source are shown in results of pathology from intraoperative biopsy of liver nodules that were palpated during surgery. - Time to heal is minimum 3-4 weeks assuming no postop complications prior to options for systemic treatment. - Will send for further characterizing with Biomarker testing Current Visit: Yes Status: Acute Code(s): K76.9 - LIVER DISEASE, UNSPECIFIED SNOMED Code(s): 162510525 Perforated gastric ulcer Narrative/Plan: - S/P intervention surgery Current Visit: Yes Status: Acute Code(s): K25.5 - CHRONIC OR UNSPECIFIED GASTRIC ULCER WITH PERFORATION SNOMED Code(s): 3613110 Anemia Narrative/Plan: - IV Iron x3 days and hemoglobin improved, 10 today - Transfuse for hemoglobin less than 7 Current Visit: Yes Status: Acute Code(s): D64.9 - ANEMIA, UNSPECIFIED SNOM ED Code(s): 529417185 Follow-up in office next week Biomarker testing on pathology for treatment plan options ordered Continue to work to improve performance and monitoring for complications from aggressive underlying malignancy. IF improvement in strength and clinical status can provide options of treatment at 2 week follow-up with Dr. Vann. Physician attest: I have completed the full history and physical and agree with above dictation, dictated as a scribe.
[2020-09-16] MEDS ORDERED: SODIUM CHLORIDE 0.9% 1,000 ML IV ONE (16:07)
[2020-09-17] MEDS: HEPARIN SODIUM,PORCINE/PF 5,000 UNIT/0.5 ML SYRINGE SQ SCH ×3 (00:59→17:21)
[2020-09-17] MEDS: metroNIDAZOLE 500 MG TAB PEG/G-TUBE SCH ×3 (00:59→17:21)
[2020-09-17] MEDS: PIPERACILLIN-TAZOBACTAM 3.375 GM in SODIUM CHLORIDE 0.9% 100 ML IVPB SCH ×3 (03:39→19:28)
[2020-09-17] MEDS: SODIUM CHLORIDE 0.9% 1,000 ML IV SCH ×2 (03:39→12:42)
[2020-09-17] MEDS: PANTOPRAZOLE 40 MG/10 ML VIAL IV SCH ×2 (07:34→20:48)
[2020-09-17] MEDS: MORPHINE SULFATE ER 15 MG TABLET PO SCH ×2 (07:35→20:47)
[2020-09-17] MEDS: FLUCONAZOLE 100 MG TAB PEG/G-TUBE SCH (07:35)
[2020-09-17] MEDS: THIAMINE 100 MG TAB PO SCH ×2 (07:35→17:21)
[2020-09-17 09:56] LABS: African American GFR (CKD) 49 (>60 ml/min/1.73 sqM); Anion Gap 9 mmol/L; Blood Urea Nitrogen 38 mg/dL (9-20); Calcium 7.5 mg/dL (8.4-10.2); Carbon Dioxide 17 mmol/L (22-30); Chloride 107 mmol/L (98-107); Glucose 118 mg/dL (74-99); Non-African American GFR(CKD) 42 (>60 ml/min/1.73 sqM); Potassium 4.5 mmol/L (3.5-5.1); Sodium 133 mmol/L (137-145)
[2020-09-17 10:16] LABS: Anisocytosis Slight; Basophils % (A) 0 %; Eosinophils % (A) 0 %; HCT 39.3 % (39.0-53.0); HGB 11.8 gm/dL (13.0-17.5); Hypochromasia Marked; Lymphocytes # (A) 0.9 k/uL (1.0-4.8); Lymphocytes % (A) 4 %; MCH 29.6 pg (25.0-35.0); MCV 98.8 fL (80.0-100.0); Macrocytosis Moderate; Mean Platelet Volume 10.1; Monocytes # (A) 1.5 k/uL (0-1.0); Monocytes % (A) 6 %; Neutrophils # (A) 21.5 k/uL (1.3-7.7); Neutrophils % (A) 90 %; Platelet Count 365 k/uL (150-450); RBC 3.98 m/uL (4.30-5.90); RDW 19.4 % (11.5-15.5); WBC 24.1 k/uL (3.8-10.6)
--- NOTE | 2020-09-17 11:25 | P.PN ---
<Carol Childress - Last Filed: 09/17/20 11:19> Subjective Progress Note Date: 09/17/20 CHIEF COMPLAINT: Perforated gastric ulcer HISTORY OF PRESENT ILLNESS: Patient is status post exploratory laparotomy, repair of perforated gastric ulcer and biopsy of liver mass on 09/05/20. Patient is complaining of same abdominal pain. He is having bowel movements and flatus. He is eating small amounts of food. He is on regular diet. CHAD drain serous drainage. CODE STATUS is DO NOT RESUSCITATE. He is to meet with hospice for informational meeting today. He is afebrile. Tachycardic. Starting to have lower urine output. Creatinine is up to 1.64. And does have evidence of hematuria. PHYSICAL EXAM: VITAL SIGNS: Reviewed. GENERAL: Well-developed in no acute distress. HEENT: No sclera icterus. Extraocular movements grossly intact. Moist buccal mucosa. Head is atraumatic, normocephalic. ABDOMEN: Soft. distended. Incision clean dry and intact. CHAD drain serous output NEUROLOGIC: Alert and oriented. Cranial nerves II through XII grossly intact. ASSESSMENT: 1. Perforated gastric ulcer status post exploratory laparotomy, repair of perforated gastric ulcer and biopsy of liver mass 2. Pathology from the liver biopsy shows metastatic adenocarcinoma PLAN: -Hospice informational meeting today -Continue heart healthy diet -Continue antibiotics -Continue IV fluids -Consult PT OT -Encouraged patient to use incentive spirometer -Encouraged patient to ambulate -Continue GI and DVT prophylaxis -CODE STATUS DO NOT RESUSCITATE Physician Manufacturing Business Analyst note has been reviewed by physician. Signing provider agrees with the documented findings, assessment, and plan of care. Objective - Vital Signs Vital signs: Vital Signs Temp 97.6 F 09/17/20 04:38 Pulse 109 H 09/17/20 04:38 Resp 16 09/17/20 04:38 BP 125/92 09/17/20 04:38 Pulse Ox 97 09/17/20 04:38 Intake & Output 09/16/20 09/17/20 09/17/20 18:59 06:59 18:59 Intake Total 1300 240 Output Total 680 735 220 Balance -680 565 20 Weight 79.2 kg Intake: IV 200 Piperacillin-Tazobactam 3 200 .375 gm In Sodium Chloride 0.9% 100 ml @ 25 mls/hr IVPB Q8H [facility] Rx#: [id number] Intake, IV Titration 1100 Amount Sodium Chloride 0.9% 1, 1100 000 ml @ 100 mls/hr IV . Q10H [facility] Rx#:[id number] Oral 240 Output: Gastric Drainage 325 Drainage 405 210 220 Right Abdomen 405 210 220 Urine 275 200 Other: Voiding Method Indwelling Catheter Indwelling Catheter # Bowel Movements 1 0 - Labs CBC & Chem 7: 09/17/20 09:15 09/17/20 09:15 Labs: Abnormal Lab Results - Last 24 Hours (Table) 09/17/20 09/17/20 Range/Units 09:15 09:15 WBC 24.1 H (3.8-10.6) k/uL RBC 3.98 L (4.30-5.90) m/uL Hgb 11.8 L (13.0-17.5) gm/dL MCHC 30.0 L (31.0-37.0) g/dL RDW 19.4 H (11.5-15.5) % Neutrophils # 21.5 H (1.3-7.7) k/uL Lymphocytes # 0.9 L (1.0-4.8) k/uL Monocytes # 1.5 H (0-1.0) k/uL Sodium 133 L (137-145) mmol/L Carbon Dioxide 17 L (22-30) mmol/L BUN 38 H (9-20) mg/dL Creatinine 1.64 H (0.66-1.25) mg/dL Glucose 118 H (74-99) mg/dL Calcium 7.5 L (8.4-10.2) mg/dL Microbiology - Last 24 Hours (Table) 09/15/20 14:57 Blood Culture - Preliminary Blood No Growth after 24 hours <Vito Schwartz - Last Filed: 09/17/20 17:23> Subjective As above. She does seem better today. Pain is less and he says its improving gradually. CHAD remained serous. He is tolerating diet. No nausea or vomiting. Objective - Vital Signs Vital signs: Vital Signs Temp 97.4 F L 09/17/20 11:31 Pulse 112 H 09/17/20 11:31 Resp 14 09/17/20 11:31 BP 121/91 09/17/20 11:31 Pulse Ox 94 L 09/17/20 11:31 Intake & Output 09/16/20 09/17/20 09/17/20 18:59 06:59 18:59 Intake Total 1300 240 Output Total 680 595 998 Balance -680 565 -610 Weight 79.2 kg Intake: IV 200 Piperacillin-Tazobactam 3 200 .375 gm In Sodium Chloride 0.9% 100 ml @ 25 mls/hr IVPB Q8H [facility] Rx#: [id number] Intake, IV Titration 1100 Amount Sodium Chloride 0.9% 1, 1100 000 ml @ 100 mls/hr IV . Q10H [facility] Rx#:[id number] Oral 240 Output: Gastric Drainage 325 Drainage 405 210 500 Right Abdomen 405 210 500 Urine 275 200 350 Other: Voiding Method Indwelling Catheter Indwelling Catheter # Bowel Movements 1 0 - Labs CBC & Chem 7: 09/17/20 09:15 09/17/20 09:15 Labs: Abnormal Lab Results - Last 24 Hours (Table) 09/17/20 09/17/20 Range/Units 09:15 09:15 WBC 24.1 H (3.8-10.6) k/uL RBC 3.98 L (4.30-5.90) m/uL Hgb 11.8 L (13.0-17.5) gm/dL MCHC 30.0 L (31.0-37.0) g/dL RDW 19.4 H (11.5-15.5) % Neutrophils # 21.5 H (1.3-7.7) k/uL Lymphocytes # 0.9 L (1.0-4.8) k/uL Monocytes # 1.5 H (0-1.0) k/uL Sodium 133 L (137-145) mmol/L Carbon Dioxide 17 L (22-30) mmol/L BUN 38 H (9-20) mg/dL Creatinine 1.64 H (0.66-1.25) mg/dL Glucose 118 H (74-99) mg/dL Calcium 7.5 L (8.4-10.2) mg/dL Microbiology - Last 24 Hours (Table) 09/15/20 14:57 Blood Culture - Preliminary Blood No Growth after 48 hours Assessment and Plan (1) Free intraperitoneal air Current Visit: Yes Status: Acute Code(s): K66.8 - OTHER SPECIFIED DISORDERS OF PERITONEUM SNOMED Code(s): 81603537
[2020-09-17] MEDS: HYDROmorphone 0.5 MG/0.5 ML SYRINGE IVP PRN (12:38)
--- NOTE | 2020-09-17 15:12 | P.PN ---
Subjective Progress Note Date: 09/17/20 Principal diagnosis: Gastric Cancer Continues to remain stable, creatinine and liver function was increasing and will recheck in am. Afebrile, some hematuria with stable hemoglobin. Objective - Vital Signs Vital signs: Vital Signs Temp 97.4 F L 09/17/20 11:31 Pulse 112 H 09/17/20 11:31 Resp 14 09/17/20 11:31 BP 121/91 09/17/20 11:31 Pulse Ox 94 L 09/17/20 11:31 Intake & Output 09/16/20 09/17/20 09/17/20 18:59 06:59 18:59 Intake Total 1300 240 Output Total 680 735 500 Balance -680 565 -260 Weight 79.2 kg Intake: IV 200 Piperacillin-Tazobactam 3 200 .375 gm In Sodium Chloride 0.9% 100 ml @ 25 mls/hr IVPB Q8H [facility] Rx#: [id number] Intake, IV Titration 1100 Amount Sodium Chloride 0.9% 1, 1100 000 ml @ 100 mls/hr IV . Q10H [facility] Rx#:[id number] Oral 240 Output: Gastric Drainage 325 Drainage 405 210 500 Right Abdomen 405 210 500 Urine 275 200 Other: Voiding Method Indwelling Catheter Indwelling Catheter # Bowel Movements 1 0 - Exam - Constitutional General appearance: Present: no acute distress - EENT Eyes: Present: EOMI ENT: Present: hearing grossly normal, normal oropharynx - Respiratory Respiratory: bilateral: CTA - Cardiovascular Rhythm: regular Heart sounds: normal: S1, S2 - Gastrointestinal General gastrointestinal: Present: absent bowel sounds, soft +tender - Integumentary Integumentary: Present: normal - Neurologic Neurologic: Present: CNII-XII intact - Musculoskeletal Musculoskeletal: Present: generalized weakness, strength equal bilaterally - Psychiatric Psychiatric: Present: A&O x's 3, appropriate affect - Labs CBC & Chem 7: 09/17/20 09:15 09/17/20 09:15 Labs: Abnormal Lab Results - Last 24 Hours (Table) 09/17/20 09/17/20 Range/Units 09:15 09:15 WBC 24.1 H (3.8-10.6) k/uL RBC 3.98 L (4.30-5.90) m/uL Hgb 11.8 L (13.0-17.5) gm/dL MCHC 30.0 L (31.0-37.0) g/dL RDW 19.4 H (11.5-15.5) % Neutrophils # 21.5 H (1.3-7.7) k/uL Lymphocytes # 0.9 L (1.0-4.8) k/uL Monocytes # 1.5 H (0-1.0) k/uL Sodium 133 L (137-145) mmol/L Carbon Dioxide 17 L (22-30) mmol/L BUN 38 H (9-20) mg/dL Creatinine 1.64 H (0.66-1.25) mg/dL Glucose 118 H (74-99) mg/dL Calcium 7.5 L (8.4-10.2) mg/dL Microbiology - Last 24 Hours (Table) 09/15/20 14:57 Blood Culture - Preliminary Blood No Growth after 24 hours Assessment and Plan Plan: Assessment and Plan Liver lesion Narrative/Plan: - Upper GI source are shown in results of pathology from intraoperative biopsy of liver nodules that were palpated during surgery. - Time to heal is minimum 3-4 weeks assuming no postop complications prior to options for systemic treatment. - Will send for further characterizing with Biomarker testing Current Visit: Yes Status: Acute Code(s): K76.9 - LIVER DISEASE, UNSPECIFIED SNOMED Code(s): 328611060 Perforated gastric ulcer Narrative/Plan: - S/P intervention surgery Current Visit: Yes Status: Acute Code(s): K25.5 - CHRONIC OR UNSPECIFIED GASTRIC ULCER WITH PERFORATION SNOMED Code(s): 9329458 Anemia Narrative/Plan: - Status post IV Iron x3 days and hemoglobin 11.3 today - Transfuse for hemoglobin less than 7 Current Visit: Yes Status: Acute Code(s): D64.9 - ANEMIA, UNSPECIFIED SNOMED Code(s): 595204522 Follow-up in office next week Biomarker testing on pathology for treatment plan options ordered Continue to work to improve performance and monitoring for complications from aggressive underlying malignancy. IF improvement in strength and clinical status can provide options of treatment at 2 week follow-up with Dr. Vann. Monitor liver function, creatinine, and cbc daily Physician attest: I have completed the full history and physical and agree with above dictation, dictated as a scribe.
--- NOTE | 2020-09-17 19:22 | P.PN ---
Subjective Progress Note Date: 09/17/20 Perforated gastric ulcer/mass; status post repair Multiple liver lesions 70-year-old male with history of seizure disorder, coronary artery disease and previous MT, history of alcohol withdrawal seizures, patient is maintained on Keppra. Patient presented to the hospital with acute onset of abdominal pain described the pain in the upper abdomen started the morning he presented to the hospital. Pain has become very severe, described it as 10 out of 10. Patient had no previous history of peptic ulcer disease. CT of the abdomen and pelvis and chest x-ray showed no pneumoperitoneum. Patient was also noted to have multiple liver lesions consistent with metastatic disease to the liver. Patient was seen by Dr. bowers on consultation and he was taken straight from the ER to the OR, underwent exploratory laparotomy, repair of perforated gastric ulcer and underwent biopsy of liver mass. Postoperatively, patient was intubated and mechanically ventilated and was sent to the ICU Patient was successfully extubated this morning and is maintaining O2 saturation above 95% on 4 L 09/07/2020 patient is seen and evaluated on medical floor; was extubated yesterday, he is on 2 L nasal cannula, and his O2 saturations in the 90s, patient has no shortness of breath no cough no wheezing, however he has some vague abdominal discomfort. Patient had a PICC line placed yesterday, and the plan is to start patient on TPN and he will be not be orally fed for quite some time as per surgery on the case. CBC is relatively normal today hemoglobin is down to 9.3. Electrodes are normal renal profile is normal liver enzymes remain elevated. Patient will be monitored closely for alcohol withdrawal 09/08/2020 Patient is seen and evaluated on 5 N.; transferred out of ICU yesterday; continues to report feeling bloated; patient has NG tube in place and continues to have clear output Vital signs are reviewed and reveal temperature of 98.1, pulse 74, respirations 16 and blood pressure of 118/78 Patient remains nothing by mouth; surgery recommending to decrease amount of ice chips and water Pathology report is pending; plan is to consult oncology for further evaluation once biopsy is available 09/09/2020 Patient is seen this morning and per nursing staff patient was confused in the middle of the night and took out his NG tube, PICC line, and part of his Guajardo catheter and when talking with the patient he does not recall any of this happening. Following along closely with surgery as patient recently underwent exploratory laparotomy with repair of a perfect related gastric ulcer and was noted to have multiple liver lesions with biopsies obtained which are pending. Oncology consulted and following. Patient denies any chest pain or shortness of breath and continues to have abdominal discomfort. Patient denies bowel movement at this time but is reporting gas. Increased amount of serosanguineous drainage from the CHAD drain was also noted today. White blood count is 9.9, hemoglobin is 8.8, current sodium is 143 with a potassium of 4.1 and current creatinine is 0.6. 09/10/2020 Patient is seen in follow-up this morning continues to have abdominal discomfort states it is somewhat improved. Bowel sounds noted and patient is passing gas but no reports of bowel movement at this time. This morning patient did have NG tube although was discontinued by surgery. Pathology report of the liver biopsy came back today and is positive for metastatic adenocarcinoma with enteric differentiation and oncology is following. White blood count today is 10.2 with hemoglobin of 9.2, current sodium is 144 with a potassium of 3.8 and creatinine is 0.6. Will continue gentle IV hydration decrease the dose to 50 mL per hour and repeat a.m. labs. Will continue to follow along with surgery during hospitalization. 09/11/2020 Patient is seen in follow-up continues to have abdominal pain and states he is passing gas and has had a bowel movement and is being started on clear liquids by surgery. White blood count slightly elevated at 12.2 hemoglobin is stable at 10.0, sodium is 141 with a potassium of 4.0 and current creatinine is 0.68. Iron studies were low and patient is receiving IV iron infusions. Oncology also following and will be following up closely in the outpatient setting for further testing. Patient is extremely weak and will have PT/OT evaluate the patient. 09/12/2020 Patient is seen in follow-up this morning and is continued on clear liquids and eating very little and continues with abdominal discomfort. Patient states he is passing gas and having bowel movements. Patient continues to be extremely weak and will be evaluated by PT/OT therapy as he will likely require rehab upon discharge for strength and mobility. Oncology also following and having biomarkers done on pathology to determine treatment options in the outpatient setting. Patient is status post iron transfusions and hemoglobin today is 10.8. Patient continues on IV antibiotics and white blood count slightly elevated today at 16.4. Patient is maintained on CIWA protocol as he has a history of alcohol abuse and we'll transition to oral as he received a dose of IV Ativan again today and becomes more confused and altered with that. This was discussed with the admitting service. 09/13/2020 Patient is seen in follow-up continues to have large amounts of output noted in the CHAD drain and is being closely monitored. White blood count elevated today at 18.1 and maintained on IV antibiotics and will continue. Patient continues with clear liquid diet and tolerating although not much of an appetite. Patient is working with physical therapy and continues to be weak. Will continue to follow along with surgery 09/14/2020 patient is admitted after a perforated peptic ulcer, patient also found to have multiple lesions in the liver found to have, primary is unknown yet.patient is u rine output is bit low today. Patient will be started on IV fluids. Patient looks bit lethargic tired.Postoperatively patient was intubated 6 seconds J extubated presently on a medical and surgical floor. 09/16/2020 Patient is evaluated this morning lethargic although arousable white count is up to 24.5 and hemoglobin is stable 11.7, sodium 137 with a potassium of 4.4 creatinine elevated at 1.3 and lactic acid has improved and is currently 1.7. Bilirubin is 3.4 and liver functions are trending upwards. Patient continues to be on Diflucan and IV Zosyn with infectious disease following. CODE STATUS was made no code and family along with patient discussing possible hospice. Oncology and surgery following. Continue gentle IV hydration. Patient is afebrile. Continued large amounts of bilious drainage noted in the CHAD drain. 09/17/2020 Patient is seen this morning with continued elevation in white count with continued large amounts of output in the CHAD drain. Patient had a brief episode of hypotension and received a liter bolus of NS yesterday with improvement in blood pressure. Patient continues to have minimal urinary output with an increase in creatinine. Patient continues on IV antibiotics and IV fluids at 100ml/hr. Patient met with [facility] today and are agreeable and need to have financial assessment done by [facility] as he has an unsafe discharge plan with his current living situation. Possible discharge to hospice house by end of week. Review of systems: Constitutional: reports of fatigue, fever, or chills Cardiovascular: No reports of chest pain or palpitations Respiratory: No reports of shortness of breath or cough GI: Reports continued abdominal discomfort at the surgical site and is passing gas with reported bowel movements : No reports of dysuria or retention Neurovascular: Reports generalized weakness All medications have been reviewed Objective - Vital Signs Vital signs: Vital Signs Temp 97.6 F 09/17/20 04:38 Pulse 109 H 09/17/20 04:38 Resp 16 09/17/20 04:38 BP 125/92 09/17/20 04:38 Pulse Ox 97 09/17/20 04:38 Intake & Output 09/16/20 09/17/20 09/17/20 18:59 06:59 18:59 Intake Total 1300 Output Total 680 735 140 Balance -680 565 -140 Weight 79.2 kg Intake: IV 200 Piperacillin-Tazobactam 3 200 .375 gm In Sodium Chloride 0.9% 100 ml @ 25 mls/hr IVPB Q8H [facility] Rx#: [id number] Intake, IV Titration 1100 Amount Sodium Chloride 0.9% 1, 1100 000 ml @ 100 mls/hr IV . Q10H [facility] Rx#:[id number] Output: Gastric Drainage 325 Drainage 405 210 140 Right Abdomen 405 210 140 Urine 275 200 Other: Voiding Method Indwelling Catheter Indwelling Catheter # Bowel Movements 1 0 - Exam Physical Exam: This is a 70-year-old male in no distress. Sleeping although arousable. Thin built, ill appearing, On room air Head: Atraumatic, normocephalic. ENT: PERRLA, EOMI, no neck masses, no thyromegaly, dry mucous membranes. Chest: Symmetrical chest expansion, diminished breath sounds at the bases with no crackles or rhonchi or wheezes.. Cardiac Exam: S1, S2 are present, intermittent periods of tachycardia Abdomen: Soft, mildly tender around the midline incision site with CHAD drain noted with continued large amounts of bilious drainage noted, bowel sounds noted Extremities: No clubbing, no edema, no cyanosis. Good pulses bilaterally. Musculoskeletal: No deformities. Neurological Exam: Alert and oriented 3 focal deficits. Diffusely weak Psychiatric: Normal mood affect and normal mental status examination. Skin: No rashes - Labs CBC & Chem 7: 09/17/20 09:15 09/17/20 09:15 Labs: Abnormal Lab Results - Last 24 Hours (Table) 09/16/20 Range/Units 05:42 Carbon Dioxide 19.4 L (21.6-31.8) mmol/L BUN 32.0 H (9.0-27.0) mg/dL Est GFR (CKD-EPI)NonAf 55.7 L (60.0-200.0) BUN/Creatinine Ratio 24.62 H (12.00-20.00) Ratio Calcium 7.5 L (8.7-10.3) mg/dL Total Bilirubin 3.4 H (0.2-1.2) mg/dL AST 319 H (14-35) U/L ALT 147 H (10-49) U/L Alkaline Phosphatase 1008 H (41-126) U/L Total Protein 4.7 L (6.2-8.2) g/dL Albumin 2.30 L (3.80-4.90) g/dL Albumin/Globulin Ratio 0.96 L (1.60-3.17) g/dL Microbiology - Last 24 Hours (Table) 09/15/20 14:57 Blood Culture - Preliminary Blood No Growth after 24 hours Assessment and Plan Assessment: Perforated gastric ulcer status post exploratory laparotomy with repair of the ulcer Multiple liver lesions: Suspicious for metastatic disease status post biopsy , oncology following Metastatic adenocarcinoma with enteric differentiation as noted on liver biopsy Seizure disorder, continue with home medications of Keppra 1500 mg twice daily History of alcoholism, continue to monitor for any signs of alcohol withdrawal and have transitioned to lower dose oral Ativan as needed as he becomes more altered and confused with IV Ativan COPD, not in acute exacerbation DVT prophylaxis: Heparin subcutaneous GI prophylaxis: No Code Plan: Continue with current medications. Patient is maintained on Zosyn along with Diflucan to continue. White blood count continues to be elevated with infectious disease following. Patient is maintained on CIWA protocol for his EtOH history and continue with when necessary oral as needed. Liver biopsy was positive for metastatic adenocarcinoma with enteric differentiation. Patient's CODE STATUS was changed to no code and discussing possible hospice with family. Patient met with [facility] and would like to proceed with hospice comfort measures. Social work with [facility] working on financials and referral placed to [facility] for financial assessment to assist with getting a safe discharge plan. Continue with 100ml NS IV hydration. Will continue to follow along with surgery during hospitalization. Repeat a.m. labs.
[2020-09-18] MEDS: SODIUM CHLORIDE 0.9% 1,000 ML IV SCH ×3 (00:12→20:02)
[2020-09-18] MEDS: HEPARIN SODIUM,PORCINE/PF 5,000 UNIT/0.5 ML SYRINGE SQ SCH ×4 (00:12→23:12)
[2020-09-18] MEDS: metroNIDAZOLE 500 MG TAB PEG/G-TUBE SCH ×4 (00:12→23:12)
[2020-09-18 01:14] LABS: Glucose,Whole Blood 116 mg/dL (75-99)
[2020-09-18] MEDS: LORazepam 0.5 MG TAB PO PRN (01:16)
[2020-09-18] MEDS: PIPERACILLIN-TAZOBACTAM 3.375 GM in SODIUM CHLORIDE 0.9% 100 ML IVPB SCH ×3 (03:57→20:01)
[2020-09-18 04:26] LABS: Anisocytosis Slight; Basophils % (A) 0 %; Eosinophils % (A) 0 %; HCT 38.5 % (39.0-53.0); HGB 11.7 gm/dL (13.0-17.5); Hypochromasia Marked; Lymphocytes # (A) 0.7 k/uL (1.0-4.8); Lymphocytes % (A) 3 %; MCH 30.1 pg (25.0-35.0); MCHC 30.5 g/dL (31.0-37.0); MCV 98.8 fL (80.0-100.0); Macrocytosis Moderate; Mean Platelet Volume 9.8; Monocytes # (A) 1.4 k/uL (0-1.0); Monocytes % (A) 6 %; Neutrophils # (A) 20.4 k/uL (1.3-7.7); Neutrophils % (A) 90 %; Platelet Count 333 k/uL (150-450); RDW 19.6 % (11.5-15.5); WBC 22.7 k/uL (3.8-10.6)
[2020-09-18] MEDS: PANTOPRAZOLE 40 MG/10 ML VIAL IV SCH ×2 (10:04→21:07)
[2020-09-18] MEDS: MORPHINE SULFATE ER 15 MG TABLET PO SCH ×2 (10:05→21:05)
[2020-09-18] MEDS: THIAMINE 100 MG TAB PO SCH ×2 (10:05→16:39)
[2020-09-18] MEDS: FLUCONAZOLE 100 MG TAB PEG/G-TUBE SCH (10:07)
[2020-09-18 10:38] LABS: African American GFR (CKD) 54.3 (60.0-200.0); Albumin/Globulin Ratio 0.91 (1.60-3.17); Anion Gap 12.3 mmol/L (4.00-12.00); BUN/Creat Ratio 27.33 Ratio (12.00-20.00); Calcium 6.9 mg/dL (8.7-10.3); Carbon Dioxide 15.7 mmol/L (21.6-31.8); Globulin 2.2 g/dL (1.6-3.3); Non-African American GFR(CKD) 46.8 (60.0-200.0); Potassium 4.2 mmol/L (3.5-5.5); Total Bilirubin 4.4 mg/dL (0.2-1.2); Total Protein 4.2 g/dL (6.2-8.2)
--- NOTE | 2020-09-18 12:17 | P.PN ---
Subjective Progress Note Date: 09/18/20 Principal diagnosis: Perforated gastric ulcer Patient doing about the same. He is tired. He has agreed to hospice. He is tolerating his diet. CHAD draining serous. Objective - Vital Signs Vital signs: Vital Signs Temp 97.6 F 09/18/20 04:38 Pulse 110 H 09/18/20 04:38 Resp 16 09/18/20 04:38 BP 110/78 09/18/20 04:38 Pulse Ox 96 09/18/20 04:38 Intake & Output 09/17/20 09/18/20 09/18/20 18:59 06:59 18:59 Intake Total 240 1500 Output Total 930 775 220 Balance -690 725 -220 Intake: Intake, IV Titration 1200 Amount Sodium Chloride 0.9% 1, 1200 000 ml @ 100 mls/hr IV . Q10H [facility] Rx#:[id number] Oral 240 300 Output: Gastric Drainage 400 Drainage 580 175 220 Right Abdomen 580 175 220 Urine 350 200 Other: Voiding Method Indwelling Catheter Indwelling Catheter Indwelling Catheter # Bowel Movements 0 - Exam Abdomen: Soft, mild distention, mild tenderness, incision clean dry - Labs CBC & Chem 7: 09/18/20 03:12 09/18/20 03:12 Labs: Abnormal Lab Results - Last 24 Hours (Table) 09/18/20 09/18/20 09/18/20 Range/Units 01:12 03:12 03:12 WBC 22.7 H (3.8-10.6) k/uL RBC 3.90 L (4.30-5.90) m/uL Hgb 11.7 L (13.0-17.5) gm/dL Hct 38.5 L (39.0-53.0) % MCHC 30.5 L (31.0-37.0) g/dL RDW 19.6 H (11.5-15.5) % Neutrophils # 20.4 H (1.3-7.7) k/uL Lymphocytes # 0.7 L (1.0-4.8) k/uL Monocytes # 1.4 H (0-1.0) k/uL Carbon Dioxide 15.7 L (21.6-31.8) mmol/L Anion Gap 12.30 H (4.00-12.00) mmol/L BUN 41.0 H (9.0-27.0) mg/dL Est GFR (CKD-EPI)AfAm 54.3 L (60.0-200.0) Est GFR (CKD-EPI)NonAf 46.8 L (60.0-200.0) BUN/Creatinine Ratio 27.33 H (12.00-20.00) Ratio POC Glucose (mg/dL) 116 H (75-99) mg/dL Calcium 6.9 L (8.7-10.3) mg/dL Total Bilirubin 4.4 H (0.2-1.2) mg/dL AST 279 H (14-35) U/L ALT 141 H (10-49) U/L Alkaline Phosphatase 1021 H (41-126) U/L Total Protein 4.2 L (6.2-8.2) g/dL Albumin 2.00 L (3.80-4.90) g/dL Albumin/Globulin Ratio 0.91 L (1.60-3.17) g/dL Microbiology - Last 24 Hours (Table) 09/15/20 14:57 Blood Culture - Preliminary Blood No Growth after 48 hours Assessment and Plan (1) Free intraperitoneal air Narrative/Plan: Patient overall doing fairly well. Agree with plans for hospice. Waiting for placement. Current Visit: Yes Status: Acute Code(s): K66.8 - OTHER SPECIFIED DISORDERS OF PERITONEUM SNOMED Code(s): 28288026
--- NOTE | 2020-09-18 16:35 | P.PN ---
Subjective Progress Note Date: 09/18/20 Perforated gastric ulcer/mass; status post repair Multiple liver lesions 70-year-old male with history of seizure disorder, coronary artery disease and previous ME, history of alcohol withdrawal seizures, patient is maintained on Keppra. Patient presented to the hospital with acute onset of abdominal pain described the pain in the upper abdomen started the morning he presented to the hospital. Pain has become very severe, described it as 10 out of 10. Patient had no previous history of peptic ulcer disease. CT of the abdomen and pelvis and chest x-ray showed no pneumoperitoneum. Patient was also noted to have multiple liver lesions consistent with metastatic disease to the liver. Patient was seen by Dr. bowers on consultation and he was taken straight from the ER to the OR, underwent exploratory laparotomy, repair of perforated gastric ulcer and underwent biopsy of liver mass. Postoperatively, patient was intubated and mechanically ventilated and was sent to the ICU Patient was successfully extubated this morning and is maintaining O2 saturation above 95% on 4 L 09/07/2020 patient is seen and evaluated on medical floor; was extubated yesterday, he is on 2 L nasal cannula, and his O2 saturations in the 90s, patient has no shortness of breath no cough no wheezing, however he has some vague abdominal discomfort. Patient had a PICC line placed yesterday, and the plan is to start patient on TPN and he will be not be orally fed for quite some time as per surgery on the case. CBC is relatively normal today hemoglobin is down to 9.3. Electrodes are normal renal profile is normal liver enzymes remain elevated. Patient will be monitored closely for alcohol withdrawal 09/08/2020 Patient is seen and evaluated on 5 N.; transferred out of ICU yesterday; continues to report feeling bloated; patient has NG tube in place and continues to have clear output Vital signs are reviewed and reveal temperature of 98.1, pulse 74, respirations 16 and blood pressure of 118/78 Patient remains nothing by mouth; surgery recommending to decrease amount of ice chips and water Pathology report is pending; plan is to consult oncology for further evaluation once biopsy is available 09/09/2020 Patient is seen this morning and per nursing staff patient was confused in the middle of the night and took out his NG tube, PICC line, and part of his Guajardo catheter and when talking with the patient he does not recall any of this happening. Following along closely with surgery as patient recently underwent exploratory laparotomy with repair of a perfect related gastric ulcer and was noted to have multiple liver lesions with biopsies obtained which are pending. Oncology consulted and following. Patient denies any chest pain or shortness of breath and continues to have abdominal discomfort. Patient denies bowel movement at this time but is reporting gas. Increased amount of serosanguineous drainage from the CHAD drain was also noted today. White blood count is 9.9, hemoglobin is 8.8, current sodium is 143 with a potassium of 4.1 and current creatinine is 0.6. 09/10/2020 Patient is seen in follow-up this morning continues to have abdominal discomfort states it is somewhat improved. Bowel sounds noted and patient is passing gas but no reports of bowel movement at this time. This morning patient did have NG tube although was discontinued by surgery. Pathology report of the liver biopsy came back today and is positive for metastatic adenocarcinoma with enteric differentiation and oncology is following. White blood count today is 10.2 with hemoglobin of 9.2, current sodium is 144 with a potassium of 3.8 and creatinine is 0.6. Will continue gentle IV hydration decrease the dose to 50 mL per hour and repeat a.m. labs. Will continue to follow along with surgery during hospitalization. 09/11/2020 Patient is seen in follow-up continues to have abdominal pain and states he is passing gas and has had a bowel movement and is being started on clear liquids by surgery. White blood count slightly elevated at 12.2 hemoglobin is stable at 10.0, sodium is 141 with a potassium of 4.0 and current creatinine is 0.68. Iron studies were low and patient is receiving IV iron infusions. Oncology also following and will be following up closely in the outpatient setting for further testing. Patient is extremely weak and will have PT/OT evaluate the patient. 09/12/2020 Patient is seen in follow-up this morning and is continued on clear liquids and eating very little and continues with abdominal discomfort. Patient states he is passing gas and having bowel movements. Patient continues to be extremely weak and will be evaluated by PT/OT therapy as he will likely require rehab upon discharge for strength and mobility. Oncology also following and having biomarkers done on pathology to determine treatment options in the outpatient setting. Patient is status post iron transfusions and hemoglobin today is 10.8. Patient continues on IV antibiotics and white blood count slightly elevated today at 16.4. Patient is maintained on CIWA protocol as he has a history of alcohol abuse and we'll transition to oral as he received a dose of IV Ativan again today and becomes more confused and altered with that. This was discussed with the admitting service. 09/13/2020 Patient is seen in follow-up continues to have large amounts of output noted in the CHAD drain and is being closely monitored. White blood count elevated today at 18.1 and maintained on IV antibiotics and will continue. Patient continues with clear liquid diet and tolerating although not much of an appetite. Patient is working with physical therapy and continues to be weak. Will continue to follow along with surgery 09/14/2020 patient is admitted after a perforated peptic ulcer, patient also found to have multiple lesions in the liver found to have, primary is unknown yet.patient is u rine output is bit low today. Patient will be started on IV fluids. Patient looks bit lethargic tired.Postoperatively patient was intubated 6 seconds J extubated presently on a medical and surgical floor. 09/16/2020 Patient is evaluated this morning lethargic although arousable white count is up to 24.5 and hemoglobin is stable 11.7, sodium 137 with a potassium of 4.4 creatinine elevated at 1.3 and lactic acid has improved and is currently 1.7. Bilirubin is 3.4 and liver functions are trending upwards. Patient continues to be on Diflucan and IV Zosyn with infectious disease following. CODE STATUS was made no code and family along with patient discussing possible hospice. Oncology and surgery following. Continue gentle IV hydration. Patient is afebrile. Continued large amounts of bilious drainage noted in the CHAD drain. 09/17/2020 Patient is seen this morning with continued elevation in white count with continued large amounts of output in the CHAD drain. Patient had a brief episode of hypotension and received a liter bolus of NS yesterday with improvement in blood pressure. Patient continues to have minimal urinary output with an increase in creatinine. Patient continues on IV antibiotics and IV fluids at 100ml/hr. Patient met with [facility] today and are agreeable and need to have financial assessment done by [facility] as he has an unsafe discharge plan with his current living situation. Possible discharge to hospice house by end of week. 09/18/2020 Patient is seen this morning continues to be lethargic although arousable. Continues to have serous drainage noted in the CHAD. Patient has met with hospice and is agreeable and discussed with [facility] for financial assessment today and awaiting a return call from the son per social work of hospice and will determine if he qualifies for [employer] [facility] to be placed at a hospice house. Review of systems: Constitutional: reports of fatigue, fever, or chills Cardiovascular: No reports of chest pain or palpitations Respiratory: No reports of shortness of breath or cough GI: Reports continued abdominal discomfort at the surgical site and is passing gas with reported bowel movements : No reports of dysuria or retention Neurovascular: Reports generalized weakness All medications have been reviewed Objective - Vital Signs Vital signs: Vital Signs Temp 97.6 F 09/18/20 04:38 Pulse 110 H 09/18/20 04:38 Resp 16 09/18/20 04:38 BP 110/78 09/18/20 04:38 Pulse Ox 96 09/18/20 04:38 Intake & Output 09/17/20 09/18/20 09/18/20 18:59 06:59 18:59 Intake Total 240 1500 Output Total 930 775 Balance -690 725 Intake: Intake, IV Titration 1200 Amount Sodium Chloride 0.9% 1, 1200 000 ml @ 100 mls/hr IV . Q10H [facility] Rx#:[id number] Oral 240 300 Output: Gastric Drainage 400 Drainage 580 175 Right Abdomen 580 175 Urine 350 200 Other: Voiding Method Indwelling Catheter Indwelling Catheter # Bowel Movements 0 - Exam Physical Exam: This is a 70-year-old male in no distress. Sleeping although arousable. Thin built, ill appearing, On room air Head: Atraumatic, normocephalic. ENT: PERRLA, EOMI, no neck masses, no thyromegaly, dry mucous membranes. Chest: Symmetrical chest expansion, diminished breath sounds at the bases with no crackles or rhonchi or wheezes.. Cardiac Exam: S1, S2 are present, intermittent periods of tachycardia Abdomen: Soft, mildly tender around the midline incision site with CHAD drain noted with continued large amounts of bilious drainage noted, bowel sounds noted Extremities: No clubbing, no edema, no cyanosis. Good pulses bilaterally. Musculoskeletal: No deformities. Neurological Exam: Alert and oriented 3 focal deficits. Diffusely weak Psychiatric: Normal mood affect and normal mental status examination. Skin: No rashes - Labs CBC & Chem 7: 09/18/20 03:12 09/18/20 03:12 Labs: Abnormal Lab Results - Last 24 Hours (Table) 09/17/20 09/17/20 09/18/20 Range/Units 09:15 09:15 01:12 WBC 24.1 H (3.8-10.6) k/uL RBC 3.98 L (4.30-5.90) m/uL Hgb 11.8 L (13.0-17.5) gm/dL Hct (39.0-53.0) % MCHC 30.0 L (31.0-37.0) g/dL RDW 19.4 H (11.5-15.5) % Neutrophils # 21.5 H (1.3-7.7) k/uL Lymphocytes # 0.9 L (1.0-4.8) k/uL Monocytes # 1.5 H (0-1.0) k/uL Sodium 133 L (137-145) mmol/L Carbon Dioxide 17 L (22-30) mmol/L BUN 38 H (9-20) mg/dL Creatinine 1.64 H (0.66-1.25) mg/dL Glucose 118 H (74-99) mg/dL POC Glucose (mg/dL) 116 H (75-99) mg/dL Calcium 7.5 L (8.4-10.2) mg/dL 09/18/20 Range/Units 03:12 WBC 22.7 H (3.8-10.6) k/uL RBC 3.90 L (4.30-5.90) m/uL Hgb 11.7 L (13.0-17.5) gm/dL Hct 38.5 L (39.0-53.0) % MCHC 30.5 L (31.0-37.0) g/dL RDW 19.6 H (11.5-15.5) % Neutrophils # 20.4 H (1.3-7.7) k/uL Lymphocytes # 0.7 L (1.0-4.8) k/uL Monocytes # 1.4 H (0-1.0) k/uL Sodium (137-145) mmol/L Carbon Dioxide (22-30) mmol/L BUN (9-20) mg/dL Creatinine (0.66-1.25) mg/dL Glucose (74-99) mg/dL POC Glucose (mg/dL) (75-99) mg/dL Calcium (8.4-10.2) mg/dL Microbiology - Last 24 Hours (Table) 09/15/20 14:57 Blood Culture - Preliminary Blood No Growth after 48 hours Assessment and Plan Assessment: Perforated gastric ulcer status post exploratory laparotomy with repair of the ulcer Multiple liver lesions: Suspicious for metastatic disease status post biopsy , oncology following Metastatic adenocarcinoma with enteric differentiation as noted on liver biopsy Seizure disorder, continue with home medications of Keppra 1500 mg twice daily History of alcoholism, continue to monitor for any signs of alcohol withdrawal and have transitioned to lower dose oral Ativan as needed as he becomes more altered and confused with IV Ativan COPD, not in acute exacerbation DVT prophylaxis: Heparin subcutaneous GI prophylaxis: No Code Plan: Continue with current medications. Patient is maintained on Zosyn along with Diflucan to continue. White blood count continues to be elevated with infectious disease following. White blood count slightly down at 22.7 today and hemoglobin is stable at 11.7. Creatinine slightly improved at 1.5 and sodium is 135. Patient is maintained on CIWA protocol for his EtOH history and continue with when necessary oral as needed. Liver biopsy was positive for metastatic adenocarcinoma with enteric differentiation. 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 Continue with 100ml NS IV hydration. Will continue to follow along with surgery during hospitalization.
--- NOTE | 2020-09-18 19:13 | P.PN ---
Subjective Progress Note Date: 09/18/20 Principal diagnosis: Gastric Cancer Spoke with patient and son and they state they would not want to move forward with therapy to treat cancer therefore hospice is most appropriate Objective - Vital Signs Vital signs: Vital Signs Temp 97.5 F L 09/18/20 12:40 Pulse 65 09/18/20 12:40 Resp 14 09/18/20 12:40 BP 102/71 09/18/20 12:40 Pulse Ox 96 09/18/20 12:40 Intake & Output 09/18/20 09/18/20 09/19/20 06:59 18:59 06:59 Intake Total 1500 Output Total 775 1195 Balance 725 -1195 Intake: Intake, IV Titration 1200 Amount Sodium Chloride 0.9% 1, 1200 000 ml @ 100 mls/hr IV . Q10H [facility] Rx#:[id number] Oral 300 Output: Gastric Drainage 400 Drainage 175 595 Right Abdomen 175 595 Urine 200 600 Other: Voiding Method Indwelling Catheter Indwelling Catheter # Bowel Movements 0 - Exam - Constitutional General appearance: Present: no acute distress - EENT Eyes: Present: EOMI ENT: Present: hearing grossly normal, normal oropharynx - Respiratory Respiratory: bilateral: CTA - Cardiovascular Rhythm: regular Heart sounds: normal: S1, S2 - Gastrointestinal General gastrointestinal: Present: absent bowel sounds, soft +tender - Integumentary Integumentary: Present: normal - Neurologic Neurologic: Present: CNII-XII intact - Musculoskeletal Musculoskeletal: Present: generalized weakness, strength equal bilaterally - Psychiatric Psychiatric: Present: A&O x's 3, appropriate affect - Labs CBC & Chem 7: 09/18/20 03:12 09/18/20 03:12 Labs: Abnormal Lab Results - Last 24 Hours (Table) 09/18/20 09/18/20 09/18/20 Range/Units 01:12 03:12 03:12 WBC 22.7 H (3.8-10.6) k/uL RBC 3.90 L (4.30-5.90) m/uL Hgb 11.7 L (13.0-17.5) gm/dL Hct 38.5 L (39.0-53.0) % MCHC 30.5 L (31.0-37.0) g/dL RDW 19.6 H (11.5-15.5) % Neutrophils # 20.4 H (1.3-7.7) k/uL Lymphocytes # 0.7 L (1.0-4.8) k/uL Monocytes # 1.4 H (0-1.0) k/uL Carbon Dioxide 15.7 L (21.6-31.8) mmol/L Anion Gap 12.30 H (4.00-12.00) mmol/L BUN 41.0 H (9.0-27.0) mg/dL Est GFR (CKD-EPI)AfAm 54.3 L (60.0-200.0) Est GFR (CKD-EPI)NonAf 46.8 L (60.0-200.0) BUN/Creatinine Ratio 27.33 H (12.00-20.00) Ratio POC Glucose (mg/dL) 116 H (75-99) mg/dL Calcium 6.9 L (8.7-10.3) mg/dL Total Bilirubin 4.4 H (0.2-1.2) mg/dL AST 279 H (14-35) U/L ALT 141 H (10-49) U/L Alkaline Phosphatase 1021 H (41-126) U/L Total Protein 4.2 L (6.2-8.2) g/dL Albumin 2.00 L (3.80-4.90) g/dL Albumin/Globulin Ratio 0.91 L (1.60-3.17) g/dL Microbiology - Last 24 Hours (Table) 09/15/20 14:57 Blood Culture - Preliminary Blood No Growth after 72 hours Assessment and Plan Plan: Assessment and Plan Liver lesion Narrative/Plan: - Upper GI source are shown in results of pathology from intraoperative biopsy of liver nodules that were palpated during surgery. - Time to heal is minimum 3-4 weeks assuming no postop complications prior to options for systemic treatment. - Will send for further characterizing with Biomarker testing Current Visit: Yes Status: Acute Code(s): K76.9 - LIVER DISEASE, UNSPECIFIED SNOMED Code(s): 983846680 Perforated gastric ulcer Narrative/Plan: - S/P intervention surgery Current Visit: Yes Status: Acute Code(s): K25.5 - CHRONIC OR UNSPECIFIED GASTRIC ULCER WITH PERFORATION SNOMED Code(s): 3013553 Anemia Narrative/Plan: - Status post IV Iron x3 days and hemoglobin 11.3 today - Transfuse for hemoglobin less than 7 Current Visit: Yes Status: Acute Code(s): D64.9 - ANEMIA, UNSPECIFIED SNOMED Code(s): 926583079 Patient and son have decided on hospice route as they would not want to consider treatment options for the cancer. This is resonable considering does not want treatment which is palliative.
[2020-09-19] MEDS: PIPERACILLIN-TAZOBACTAM 3.375 GM in SODIUM CHLORIDE 0.9% 100 ML IVPB SCH ×2 (02:42→12:58)
[2020-09-19] MEDS: SODIUM CHLORIDE 0.9% 1,000 ML IV SCH (04:58)
[2020-09-19] MEDS: HEPARIN SODIUM,PORCINE/PF 5,000 UNIT/0.5 ML SYRINGE SQ SCH (09:04)
[2020-09-19] MEDS: PANTOPRAZOLE 40 MG/10 ML VIAL IV SCH (09:04)
[2020-09-19] MEDS: MORPHINE SULFATE ER 15 MG TABLET PO SCH (09:05)
[2020-09-19] MEDS: THIAMINE 100 MG TAB PO SCH (09:07)
[2020-09-19] MEDS: FLUCONAZOLE 100 MG TAB PEG/G-TUBE SCH (09:08)
[2020-09-19] MEDS: metroNIDAZOLE 500 MG TAB PEG/G-TUBE SCH (09:08)
--- NOTE | 2020-09-19 10:07 | P.DS ---
Providers Date of admission: 09/05/20 18:37 Expected date of discharge: 09/19/20 Attending physician: Vito Schwartz Consults: 09/05/20 21:37 Consult Physician Routine Consulting Provider: Marie Law Consult Reason/Comments: ICU management Do you want consulting provider notified?: Yes Consult Physician Routine Consulting Provider: Nilda Fitzpatrick Consult Reason/Comments: medical management Do you want consulting provider notified?: Yes 09/08/20 11:32 Consult Physician Routine Consulting Provider: David Wills Consult Reason/Comments: Suspected metastatic disease Do you want consulting provider notified?: Yes, Notify in am Primary care physician: Lucrecia Bhandari - Discharge Diagnosis(es) (1) Free intraperitoneal air Patient was admitted to the hospital with an acute abdomen. He had significant pneumoperitoneum and was taken to the operating room and found to have a perforated gastric ulcer along the lesser curvature. The patient had a liver that was filled with metastatic deposits. The patient's stomach was densely adherent to the liver and could not be mobilized. A Yoan patch repair took place and biopsies of the liver took place as well. Postoperatively the patient has had persistent abdominal discomfort and persistent ascites drainage through the CHAD drain. CAT scan showed no evidence of leak. Patient's overall performance has declined and he is not interested in pursuing any further cancer therapy. Patient and family have decided to go with hospice and arrangements are now being made for transfer to the hospice house. We'll discharge later today. Current Visit: Yes Status: Acute Patient Condition at Discharge: Serious Plan - Discharge Summary New Discharge Prescriptions: No Action Aspirin 81 mg PO DAILY 30 Days #30 chewable levETIRAcetam [Keppra] 1,500 mg PO BID Discharge Medication List Aspirin 81 mg PO DAILY 30 Days #30 chewable 04/17/20 [Rx] levETIRAcetam [Keppra] 1,500 mg PO BID 09/05/20 [History] Follow up Appointment(s)/Referral(s): Thony Singer MD [Primary Care Provider] - 1-2 days
[2020-09-19 12:23] VITALS: BP 101/57; PULSE 61; RESP 18; TEMP 97.5
--- NOTE | 2020-09-19 12:54 | P.PN ---
Subjective Progress Note Date: 09/19/20 Perforated gastric ulcer/mass; status post repair Multiple liver lesions 70-year-old male with history of seizure disorder, coronary artery disease and previous [place], history of alcohol withdrawal seizures, patient is maintained on Keppra. Patient presented to the hospital with acute onset of abdominal pain described the pain in the upper abdomen started the morning he presented to the hospital. Pain has become very severe, described it as 10 out of 10. Patient had no previous history of peptic ulcer disease. CT of the abdomen and pelvis and chest x-ray showed no pneumoperitoneum. Patient was also noted to have multiple liver lesions consistent with metastatic disease to the liver. Patient was seen by Dr. bowers on consultation and he was taken straight from the ER to the OR, underwent exploratory laparotomy, repair of perforated gastric ulcer and underwent biopsy of liver mass. Postoperatively, patient was intubated and mechanically ventilated and was sent to the ICU Patient was successfully extubated this morning and is maintaining O2 saturation above 95% on 4 L 09/07/2020 patient is seen and evaluated on medical floor; was extubated yesterday, he is on 2 L nasal cannula, and his O2 saturations in the 90s, patient has no shortness of breath no cough no wheezing, however he has some vague abdominal discomfort. Patient had a PICC line placed yesterday, and the plan is to start patient on TPN and he will be not be orally fed for quite some time as per surgery on the case. CBC is relatively normal today hemoglobin is down to 9.3. Electrodes are normal renal profile is normal liver enzymes remain elevated. Patient will be monitored closely for alcohol withdrawal 09/08/2020 Patient is seen and evaluated on 5 N.; transferred out of ICU yesterday; continues to report feeling bloated; patient has NG tube in place and continues to have clear output Vital signs are reviewed and reveal temperature of 98.1, pulse 74, respirations 16 and blood pressure of 118/78 Patient remains nothing by mouth; surgery recommending to decrease amount of ice chips and water Pathology report is pending; plan is to consult oncology for further evaluation once biopsy is available 09/09/2020 Patient is seen this morning and per nursing staff patient was confused in the middle of the night and took out his NG tube, PICC line, and part of his Guajardo catheter and when talking with the patient he does not recall any of this happening. Following along closely with surgery as patient recently underwent exploratory laparotomy with repair of a perfect related gastric ulcer and was noted to have multiple liver lesions with biopsies obtained which are pending. Oncology consulted and following. Patient denies any chest pain or shortness of breath and continues to have abdominal discomfort. Patient denies bowel movement at this time but is reporting gas. Increased amount of serosanguineous drainage from the CHAD drain was also noted today. White blood count is 9.9, hemoglobin is 8.8, current sodium is 143 with a potassium of 4.1 and current creatinine is 0.6. 09/10/2020 Patient is seen in follow-up this morning continues to have abdominal discomfort states it is somewhat improved. Bowel sounds noted and patient is passing gas but no reports of bowel movement at this time. This morning patient did have NG tube although was discontinued by surgery. Pathology report of the liver biopsy came back today and is positive for metastatic adenocarcinoma with enteric differentiation and oncology is following. White blood count today is 10.2 with hemoglobin of 9.2, current sodium is 144 with a potassium of 3.8 and creatinine is 0.6. Will continue gentle IV hydration decrease the dose to 50 mL per hour and repeat a.m. labs. Will continue to follow along with surgery during hospitalization. 09/11/2020 Patient is seen in follow-up continues to have abdominal pain and states he is passing gas and has had a bowel movement and is being started on clear liquids by surgery. White blood count slightly elevated at 12.2 hemoglobin is stable at 10.0, sodium is 141 with a potassium of 4.0 and current creatinine is 0.68. Iron studies were low and patient is receiving IV iron infusions. Oncology also following and will be following up closely in the outpatient setting for further testing. Patient is extremely weak and will have PT/OT evaluate the patient. 09/12/2020 Patient is seen in follow-up this morning and is continued on clear liquids and eating very little and continues with abdominal discomfort. Patient states he is passing gas and having bowel movements. Patient continues to be extremely weak and will be evaluated by PT/OT therapy as he will likely require rehab upon discharge for strength and mobility. Oncology also following and having biomarkers done on pathology to determine treatment options in the outpatient setting. Patient is status post iron transfusions and hemoglobin today is 10.8. Patient continues on IV antibiotics and white blood count slightly elevated today at 16.4. Patient is maintained on CIWA protocol as he has a history of alcohol abuse and we'll transition to oral as he received a dose of IV Ativan again today and becomes more confused and altered with that. This was discussed with the admitting service. 09/13/2020 Patient is seen in follow-up continues to have large amounts of output noted in the CHAD drain and is being closely monitored. White blood count elevated today at 18.1 and maintained on IV antibiotics and will continue. Patient continues with clear liquid diet and tolerating although not much of an appetite. Patient is working with physical therapy and continues to be weak. Will continue to follow along with surgery 09/14/2020 patient is admitted after a perforated peptic ulcer, patient also found to have multiple lesions in the liver found to have, primary is unknown yet.patient is u rine output is bit low today. Patient will be started on IV fluids. Patient looks bit lethargic tired.Postoperatively patient was intubated 6 seconds J extubated presently on a medical and surgical floor. 09/16/2020 Patient is evaluated this morning lethargic although arousable white count is up to 24.5 and hemoglobin is stable 11.7, sodium 137 with a potassium of 4.4 creatinine elevated at 1.3 and lactic acid has improved and is currently 1.7. Bilirubin is 3.4 and liver functions are trending upwards. Patient continues to be on Diflucan and IV Zosyn with infectious disease following. CODE STATUS was made no code and family along with patient discussing possible hospice. Oncology and surgery following. Continue gentle IV hydration. Patient is afebrile. Continued large amounts of bilious drainage noted in the HCAD drain. 09/17/2020 Patient is seen this morning with continued elevation in white count with continued large amounts of output in the CHAD drain. Patient had a brief episode of hypotension and received a liter bolus of NS yesterday with improvement in blood pressure. Patient continues to have minimal urinary output with an increase in creatinine. Patient continues on IV antibiotics and IV fluids at 100ml/hr. Patient met with [facility] today and are agreeable and need [facility] as he has an unsafe discharge plan with his current living situation. Possible discharge to hospice house by end of week. 09/18/2020 Patient is seen this morning continues to be lethargic although arousable. Continues to have serous drainage noted in the CHAD. Patient has met with hospice and is agreeable and [facility] today and awaiting a return call from the son per social work of hospice and will determine if he qualifies for [facility] to be placed at a hospice house. 09/19/2020 Patient is seen and evaluated in follow-up much more awake and alert today with no acute overnight issues noted. [facility] and has qualified for [facility] to go to the hospice house and will be discharged today by surgical services. Review of systems: Constitutional: reports of fatigue, fever, or chills Cardiovascular: No reports of chest pain or palpitations Respiratory: No reports of shortness of breath or cough GI: No reports of nausea, vomiting, or diarrhea : No reports of dysuria or retention Neurovascular: Reports generalized weakness All medications have been reviewed Objective - Vital Signs Vital signs: Vital Signs Temp 97.4 F L 09/19/20 04:23 Pulse 115 H 09/19/20 04:23 Resp 12 09/19/20 04:23 BP 116/80 09/19/20 04:23 Pulse Ox 96 09/19/20 04:23 Intake & Output 09/18/20 09/19/20 09/19/20 18:59 06:59 18:59 Intake Total 900 Output Total 1195 1180 Balance -1195 -280 Intake: IV 100 Piperacillin-Tazobactam 3 100 .375 gm In Sodium Chloride 0.9% 100 ml @ 25 mls/hr IVPB Q8H [facility] Rx#: [id number] Intake, IV Titration 800 Amount Sodium Chloride 0.9% 1, 800 000 ml @ 100 mls/hr IV . Q10H [facility]L Rx#:[id number] Output: Drainage 595 830 Right Abdomen 595 830 Urine 600 350 Other: Voiding Method Indwelling Catheter Indwelling Catheter - Exam Physical Exam: This is a 70-year-old male in no distress. Awake and alert at the moment. Thin built, ill appearing, On room air Head: Atraumatic, normocephalic. ENT: PERRLA, EOMI, no neck masses, no thyromegaly, dry mucous membranes. Chest: Symmetrical chest expansion, diminished breath sounds at the bases with no crackles or rhonchi or wheezes.. Cardiac Exam: S1, S2 are present, intermittent periods of tachycardia Abdomen: Soft, mildly tender around the midline incision site with CHAD drain noted with continued large amounts of bilious drainage noted, bowel sounds noted Extremities: No clubbing, no edema, no cyanosis. Good pulses bilaterally. Musculoskeletal: No deformities. Neurological Exam: Alert and oriented 3 focal deficits. Diffusely weak Psychiatric: Normal mood affect and normal mental status examination. Skin: No rashes - Labs CBC & Chem 7: 09/18/20 03:12 09/18/20 03:12 Labs: Abnormal Lab Results - Last 24 Hours (Table) 09/18/20 Range/Units 03:12 Carbon Dioxide 15.7 L (21.6-31.8) mmol/L Anion Gap 12.30 H (4.00-12.00) mmol/L BUN 41.0 H (9.0-27.0) mg/dL Est GFR (CKD-EPI)AfAm 54.3 L (60.0-200.0) Est GFR (CKD-EPI)NonAf 46.8 L (60.0-200.0) BUN/Creatinine Ratio 27.33 H (12.00-20.00) Ratio Calcium 6.9 L (8.7-10.3) mg/dL Total Bilirubin 4.4 H (0.2-1.2) mg/dL AST 279 H (14-35) U/L ALT 141 H (10-49) U/L Alkaline Phosphatase 1021 H (41-126) U/L Total Protein 4.2 L (6.2-8.2) g/dL Albumin 2.00 L (3.80-4.90) g/dL Albumin/Globulin Ratio 0.91 L (1.60-3.17) g/dL Microbiology - Last 24 Hours (Table) 09/15/20 14:57 Blood Culture - Preliminary Blood No Growth after 72 hours Assessment and Plan Assessment: Perforated gastric ulcer status post exploratory laparotomy with repair of the ulcer Multiple liver lesions: Suspicious for metastatic disease status post biopsy , oncology following Metastatic adenocarcinoma with enteric differentiation as noted on liver biopsy Seizure disorder, continue with home medications of Keppra 1500 mg twice daily History of alcoholism, continue to monitor for any signs of alcohol withdrawal and have transitioned to lower dose oral Ativan as needed as he becomes more altered and confused with IV Ativan COPD, not in acute exacerbation DVT prophylaxis: Heparin subcutaneous GI prophylaxis: No Code Plan: Continue with current medications and pain management and patient was approved to go to the [facility] with hospice and comfort care measures and will be discharged by admitted/surgery services today. Will continue to follow along with surgery during hospitalization. Thank you for this consultation.
== END 2020-09-19 14:30 | disposition hospice, inpatient (51) | DRG 327 ==
LOC: EC 16:15 → 3SCARD 18:37 → 2SICU 21:04 → 5NMEDONC 09-07 11:20
PROVIDERS: ADMIT Surgery; ATTEND Surgery
PROC: 0FB00ZX Excision of Liver, Open Approach, Diagnostic (ICD-10-PCS; 2020-09-05)
PROC: 0DU607Z Supplement Stomach with Autologous Tissue Substitute, Open Approach (ICD-10-PCS; principal; 2020-09-05 19:30)
PROC: 02HV33Z Insertion of Infusion Device into Superior Vena Cava, Percutaneous Approach (ICD-10-PCS; 2020-09-06)
PROC: B548ZZA Ultrasonography of Superior Vena Cava, Guidance (ICD-10-PCS; 2020-09-06)
PROC: 3E0436Z Introduction of Nutritional Substance into Central Vein, Percutaneous Approach (ICD-10-PCS; 2020-09-06)
DX: K25.5 Chronic or unspecified gastric ulcer with perforation (principal); C78.7 Secondary malignant neoplasm of liver and intrahepatic bile duct; C16.9 Malignant neoplasm of stomach, unspecified; F10.239 Alcohol dependence with withdrawal, unspecified; D62 Acute posthemorrhagic anemia; J98.11 Atelectasis; E87.2 Acidosis; G40.909 Epilepsy, unspecified, not intractable, without status epilepticus; I25.2 Old myocardial infarction; F17.200 Nicotine dependence, unspecified, uncomplicated; Z83.3 Family history of diabetes mellitus; Z79.82 Long term (current) use of aspirin; K66.8 Other specified disorders of peritoneum; Z20.822 Contact with and (suspected) exposure to COVID-19; R16.0 Hepatomegaly, not elsewhere classified; J44.9 Chronic obstructive pulmonary disease, unspecified; Z66 Do not resuscitate; Z85.00 Personal history of malignant neoplasm of unspecified digestive organ; I95.9 Hypotension, unspecified; R00.0 Tachycardia, unspecified; Z51.5 Encounter for palliative care; D63.0 Anemia in neoplastic disease
CPT/HCPCS: 36573; 36600; 70450; 71045; 71046; 74022; 74176; 74177; 80048; 80053; 81001; 82150; 82607; 82728; 82747; 82805; 83540; 83550; 83605; 83690; 83735; 83921; 84100; 84484; 85025; 85610; 85730; 87040; 87635; 88307; 88341; 88342; 93005; 94002; 94003; 94640; 94760; 96361; 96374; 96375; 99291